=== PATIENT | female | born 1955 | race Caucasian/White ===

== ENCOUNTER 2025-06-20 20:19 | Outpatient (CLI) | payer OTHER, SELFPAY | END 2025-06-20 20:20 | disposition home or self-care (01) | PROVIDERS: Visit Provider Emergency Medicine Emergency Medical Services | DX: R06.09 Other forms of dyspnea (principal); R41.82 Altered mental status, unspecified | CPT/HCPCS: A0425; A0427 ==

== ENCOUNTER 2025-06-20 21:58 | Inpatient (IN) | payer OTHER, SELFPAY ==
[2025-06-20] VITALS (13 sets, daily range): BP systolic 114–135; BP diastolic 61–62; PULSE 50–53; RESP 6–24; TEMP 36.2; O2SAT 56–91; BMI 40.7
--- NOTE | 2025-06-20 22:43 | CRLHL7_ITS ---
For Patients: As a result of the Cures Act, medical imaging exams and procedure reports are released immediately into your electronic medical record. You may view this report before your referring provider. If you have questions, please contact your health care provider. INDICATION: Shortness of breath. TECHNIQUE: Chest 1 view. COMPARISON: None. FINDINGS: Diffuse increased interstitial lung markings. Prominent cardiac silhouette despite portable technique. Uncoiled and atherosclerotic thoracic aorta. Tiny bilateral pleural effusions. No pneumothorax. Two left glenohumeral joint intra-articular bodies, largest measuring 2 cm. No acute osseous findings. Partially imaged lumbar spine fusion changes. IMPRESSION: Constellation of findings compatible with pulmonary edema and/or diffuse infection. Dictated by Smooth Dowd MD @ 06/20/2025 11:27:12 PM (Electronically Signed)
--- NOTE | 2025-06-20 22:59 | ED.GENADULT ---
HPI - General Adult General Chief complaint: Extremity Pain/Injury, Lower <Sara Plasencia MD - Last Filed: 06/20/25 23:49> Stated complaint: abnormal vital signs <Sara Plasencia MD - Last Filed: 06/20/25 23:49> Time Seen by Provider: 06/20/25 22:33 <Sara Plasencia MD - Last Filed: 06/20/25 23:49> Source: patient, family and EMS <Sara Plasencia MD - Last Filed: 06/20/25 23:49> Mode of arrival: EMS <Sara Plasencia MD - Last Filed: 06/20/25 23:49> Limitations: altered mental status (Dementia) <Sraa Plasencia MD - Last Filed: 06/20/25 23:49> History of Present Illness HPI narrative: 70-year-old female with very complex medical history presents today after the [facility] [place] called EMS because the patient was not doing well. According to her family she has required more oxygen than usual. She has required oxygen in the past but has not had any for us short period of time, since she has been in [place] according to her sister. Patient states that she felt dizzy today. She denies pain anywhere or any focal neurologic deficits. Denies blurry or double vision. Denies ringing in her ears. I did receive a call while EMS was on site that patient was requiring significant amount of oxygen and was saturating 40% on room air, was bradycardic. POLST on record states comfort focus treatment and no transfer to hospital for life-sustaining treatment. Patient's sister who is the POA requested the patient be transferred. She states that the POLST is wrong. Upon arrival today both patient and her POA are requesting full diagnostic workup and treatment, short of intubation and CPR. Past medical history is extensive and includes paroxysmal atrial fibrillation, diastolic heart failure, epilepsy, COPD, diabetes type 2, hyperlipidemia, adrenocortical insufficiency, history of PE, history of CVA with neuro cognitive deficits, chronic back pain. Patient is generally a one-person assist with walker and gait belt for transfers, wheelchair for locomotion. Patient was admitted at [facility] from January to April of this year for strengthening and rehab, she was discharged to the memory care unit at the [facility] in April. Current medications include sertraline, amiodarone, metoprolol, apixaban, torsemide 20 mg daily, p.r.n. tramadol, Depakote, insulin, rosuvastatin, hydrocortisone <Sara Plasencia MD - Last Filed: 06/20/25 23:49> Related Data Home medications: Home Medications ?Medication ?Instructions ?Recorded ?Confirmed acetaminophen 325 mg tablet 650 mg PO TID 06/21/25 06/21/25 amiodarone 200 mg tablet 200 mg PO DAILY 06/21/25 06/21/25 ammonium lactate 12 % topical cream 1 applic topical BID 06/21/25 06/21/25 apixaban 5 mg tablet (Eliquis) 5 mg PO BID 06/21/25 06/21/25 ascorbic acid (vitamin C) 1,000 mg 1,000 mg PO BID 06/21/25 06/21/25 tablet azithromycin 500 mg tablet 500 mg PO DAILY 06/21/25 06/21/25 calcium 600 mg (as 1 tab PO BID 06/21/25 06/21/25 carbonate)-vitamin D3 10 mcg (400 unit) tablet cholecalciferol (vitamin D3) 125 125 mcg PO QAM 06/21/25 06/21/25 mcg (5,000 unit) capsule cyanocobalamin (vitamin B-12) 500 500 mcg PO DAILY 06/21/25 06/21/25 mcg tablet diclofenac sodium 1 % topical gel 4 g topical QID 06/21/25 06/21/25 divalproex 500 mg tablet,extended 2,000 mg PO HS 06/21/25 06/21/25 release 24 hr ergocalciferol (vitamin D2) 1,250 1,250 mcg PO .sat 06/21/25 06/21/25 mcg (50,000 unit) capsule fluticasone fur. 100 mcg-umeclid 1 inh inhalation DAILY 06/21/25 06/21/25 62.5 mcg-vilant 25 mcg inhalat.powder (Trelegy Ellipta) fluticasone propionate 50 2 spray intranasal DAILY 06/21/25 06/21/25 mcg/actuation nasal spray,suspension (24 Hour Allergy Relief) gabapentin 400 mg capsule 800 mg PO TID 06/21/25 06/21/25 guaifenesin 100 mg/5 mL oral 200 mg PO Q4H PRN 06/21/25 06/21/25 liquid (Chest Congestion Relief) hydrocortisone 10 mg tablet 5 mg PO QPM 06/21/25 06/21/25 hydrocortisone 10 mg tablet 10 mg PO DAILY 06/21/25 06/21/25 (Cortef) insulin glargine 100 unit/mL (3 13 unit subcut HS 06/21/25 06/21/25 mL) subcutaneous pen (Lantus Solostar U-100 Insulin) levothyroxine 25 mcg tablet 25 mcg PO DAILY 06/21/25 06/21/25 lidocaine 4 % topical patch 1 patch topical DAILY@19 06/21/25 06/21/25 melatonin 5 mg tablet 5 mg PO HS insomnia 06/21/25 06/21/25 metoprolol tartrate 25 mg tablet 25 mg PO BID 06/21/25 06/21/25 montelukast 10 mg tablet 10 mg PO DAILY 06/21/25 06/21/25 multivitamin with folic acid 400 1 tab PO DAILY 06/21/25 06/21/25 mcg tablet (Tab-A-Tiffanie) naloxone 4 mg/actuation nasal 4 mg intranasal Q2M PRN 06/21/25 06/21/25 spray (Narcan) nicotine 14 mg/24 hr daily 1 patch topical DAILY 06/21/25 06/21/25 transdermal patch polyethylene glycol 3350 17 gram 17 g PO DAILY PRN 06/21/25 06/21/25 oral powder packet (Gavilax) rimegepant 75 mg disintegrating 75 mg PO DAILY PRN 06/21/25 06/21/25 tablet (Nurtec ODT) rosuvastatin 20 mg tablet 20 mg PO HS 06/21/25 06/21/25 sennosides 8.6 mg-docusate sodium 1 tab-cap PO DAILY PRN 06/21/25 06/21/25 50 mg tablet (Colace 2-In-1) sertraline 25 mg tablet 25 mg PO DAILY 06/21/25 06/21/25 sodium chloride 0.65 % nasal spray 1 spray intranasal BID 06/21/25 06/21/25 aerosol (Deep Sea Nasal) tiotropium bromide 2.5 2 inh inhalation DAILY 06/21/25 06/21/25 mcg/actuation mist for inhalation (Spiriva Respimat) torsemide 20 mg tablet 40 mg PO DAILY 06/21/25 06/21/25 <Sara Plasencia MD - Last Filed: 06/20/25 23:49> Allergies/adverse reactions: Allergies Allergy/AdvReac Type Severity Reaction Status Date / Time aspirin Allergy Severe gi bleed Verified 06/20/25 22:23 codeine Allergy Severe Migraine Verified 06/20/25 22:23 cucumber Allergy Severe angioedema Verified 06/20/25 22:23 NSAIDS (Non-Steroidal Allergy Severe gi bleed Verified 06/20/25 22:23 Anti-Inflamma lactase Allergy Intermediate gi upset Verified 06/20/25 22:23 sulfamethoxazole (From Allergy Intermediate Hives Verified 06/20/25 22:23 Bactrim) sumatriptan Allergy Intermediate worsening Verified 06/20/25 22:23 headache trimethoprim (From Bactrim) Allergy Intermediate Hives Verified 06/20/25 22:23 levofloxacin Allergy Mild Rash Verified 06/20/25 22:23 <Sara Plasencia MD - Last Filed: 06/20/25 23:49> Review of Systems Status of ROS: Reports: 10 or more systems reviewed and unremarkable except as noted in History and below <Sara Plasencia MD - Last Filed: 06/20/25 23:49> [facility] Medical History: Medical History (Updated 06/21/25 @ 14:33 by Loretta Ambrocio MD) History of pulmonary embolism ?Z86.711 - Personal history of pulmonary embolism (ICD-10) Epilepsy ?G40.909 - Epilepsy, unspecified, not intractable, without status epilepticus (ICD-10) Diabetes ?E11.9 - Type 2 diabetes mellitus without complications (ICD-10) Chronic adrenal insufficiency ?E27.40 - Unspecified adrenocortical insufficiency (ICD-10) History of COPD ?Z87.09 - Personal history of other diseases of the respiratory system (ICD-10) Chronic diastolic heart failure ?I50.32 - Chronic diastolic (congestive) heart failure (ICD-10) Obstructive sleep apnea ?G47.33 - Obstructive sleep apnea (adult) (pediatric) (ICD-10) 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 ?F06.70 - Mild neurocognitive disorder due to known physiological condition without behavioral disturbance (ICD-10) H/O stroke without residual deficits ?Z86.73 - Personal history of transient ischemic attack (TIA), and cerebral infarction without residual deficits (ICD-10) Transient ischemic attack (TIA) ?G45.9 - Transient cerebral ischemic attack, unspecified (ICD-10) Pulmonary embolus ?I26.99 - Other pulmonary embolism without acute cor pulmonale (ICD-10) Unspecified adrenocortical insufficiency ?E27.40 - Unspecified adrenocortical insufficiency (ICD-10) Diabetes type 2 ?E11.9 - Type 2 diabetes mellitus without complications (ICD-10) GERD without esophagitis ?K21.9 - Gastro-esophageal reflux disease without esophagitis (ICD-10) Chronic idiopathic constipation ?K59.04 - Chronic idiopathic constipation (ICD-10) PTSD (post-traumatic stress disorder) ?F43.10 - Post-traumatic stress disorder, unspecified (ICD-10) Anxiety ?F41.9 - Anxiety disorder, unspecified (ICD-10) Nonintractable epilepsy with complex partial seizures ?G40.209 - Localization-related (focal) (partial) symptomatic epilepsy and epileptic syndromes with complex partial seizures, not intractable, without status epilepticus (ICD-10) Rheumatoid arthritis ?M06.9 - Rheumatoid arthritis, unspecified (ICD-10) Acute on chronic diastolic (congestive) heart failure ?I50.33 - Acute on chronic diastolic (congestive) heart failure (ICD-10) Acute respiratory failure with hypoxia and hypercapnia ?J96.01 - Acute respiratory failure with hypoxia (ICD-10) ?J96.02 - Acute respiratory failure with hypercapnia (ICD-10) Opioid dependence ?F11.20 - Opioid dependence, uncomplicated (ICD-10) Cellulitis of both lower extremities ?L03.115 - Cellulitis of right lower limb (ICD-10) ?L03.116 - Cellulitis of left lower limb (ICD-10) Chronic hypoxemic respiratory failure ?J96.11 - Chronic respiratory failure with hypoxia (ICD-10) Chronic obstructive pulmonary disease on long-term inhaled steroid therapy ?J44.9 - Chronic obstructive pulmonary disease, unspecified (ICD-10) ?Z79.51 - intermediate frame tender (current) use of inhaled steroids (ICD-10) Atrial fibrillation with RVR ?I48.91 - Unspecified atrial fibrillation (ICD-10) CHF (congestive heart failure) ?I50.9 - Heart failure, unspecified (ICD-10) Acute hyponatremia ?E87.1 - Hypo-osmolality and hyponatremia (ICD-10) Class 2 severe obesity with serious comorbidity in adult ?E66.812 - Obesity, class 2 (ICD-10) ?E66.01 - Morbid (severe) obesity due to excess calories (ICD-10) Seizure ?R56.9 - Unspecified convulsions (ICD-10) Paroxysmal atrial fibrillation ?I48.0 - Paroxysmal atrial fibrillation (ICD-10) Bicuspid aortic valve ?Q23.81 - Bicuspid aortic valve (ICD-10) Asthma ?J45.909 - Unspecified asthma, uncomplicated (ICD-10) Aortic aneurysm ?I71.9 - Aortic aneurysm of unspecified site, without rupture (ICD-10) Adrenal insufficiency ?E27.40 - Unspecified adrenocortical insufficiency (ICD-10) <Sara Plasencia MD - Last Filed: 06/20/25 23:49> Surgical History: Surgical History H/O: hysterectomy ?Z90.710 - Acquired absence of both cervix and uterus (ICD-10) History of cholecystectomy ?Z90.49 - Acquired absence of other specified parts of digestive tract (ICD-10) <Sara Plasencia MD - Last Filed: 06/20/25 23:49> Social History: Social History What is your current living situation?: unable to answer Problems where you live: unable to answer Problems where you live details: Pt unable to answer In the past 12 months, utilities in danger of being shut off: unable to answer In past 12 months, lack of transportation kept you from medical appts, meetings, work, or getting things needed for daily living: unable to answer In the past 12 mos, have been you worried that your food would run out before you had money to buy more?: unable to answer In the past 12 mos, the food you bought just didn't last and you didn't have money to buy more?: unable to answer Highest level of school completed/degree received: don't know Smoking Status: Unknown if ever smoked Do you use any of these nicotine containing products: None How often do you have a drink containing alcohol: never AUDIT-C Alcohol total score: 0 Non-prescribed substance use details: Pt unable answer How often does anyone, including family, friends and others, physically hurt you: unable to answer How often does anyone, including family, friends and others, insult or talk down to you: unable to answer How often does anyone, including family, friends and others, threaten you with harm: unable to answer How often does anyone, including family, friends and others, scream or curse at you: unable to answer <Sara Plasencia MD - Last Filed: 06/20/25 23:49> Exam Narrative: Exam Narrative: Overweight, well-developed patient in acute respiratory distress. Awake, sleepy. Answers most questions appropriately, slightly hard of hearing. Sometimes asks further questions to be repeated and states that she does not understand. Patient currently on 15 L OxyMask, saturating 88-90%. HEENT: Normocephalic atraumatic. Cataracts. Extraocular muscles are intact. Conjunctivae are moist without any icterus noted. Slightly dry mucous membranes. Cardiovascular: Bradycardic. Lungs: Bilateral crackles. Abdomen: Soft and nontender nondistended with normal bowel sounds. Extremities: Bilateral lower extremities show 3+ pitting edema with Guadalupe induration up to the knees, she has trace edema up the thighs. Skin: Well perfused, pale. <Sara Plasencia MD - Last Filed: 06/20/25 23:49> Const: Vital Signs, click to edit/add: Vital Signs - 24 hr 06/20/25 22:05 06/20/25 22:05 06/20/25 22:07 Temperature 97.1 F L Pulse Rate 52 L 52 L Pulse Rate [Left P ulse Oximeter] 52 L Respiratory Rate 24 7 L Blood Pressure 135/61 Blood Pressure [Le ft Arm] Blood Pressure [Le ft Upper Arm] 135/61 Pulse Oximetry 57 L 56 L 81 L Oxygen Delivery Me thod Room Air Oxygen Flow Rate 06/20/25 22:15 06/20/25 22:16 06/20/25 22:30 Temperature Pulse Rate 50 L 53 L Pulse Rate [Left P ulse Oximeter] Respiratory Rate 14 14 Blood Pressure Blood Pressure [Le ft Arm] Blood Pressure [Le ft Upper Arm] Pulse Oximetry 81 L 63 L [address] thod Room Air Oxygen Flow Rate 06/20/25 22:43 06/20/25 22:45 06/20/25 22:48 Temperature Pulse Rate 50 L Pulse Rate [Left P ulse Oximeter] Respiratory Rate 18 Blood Pressure Blood Pressure [Le ft Arm] Blood Pressure [Le ft Upper Arm] Pulse Oximetry 63 L 88 90 Oxygen Delivery Me thod Oxygen Flow Rate 06/20/25 22:48 06/20/25 23:12 06/20/25 23:15 Temperature Pulse Rate 50 L Pulse Rate [Left P ulse Oximeter] Respiratory Rate 11 L 17 Blood Pressure 114/62 Blood Pressure [Le ft Arm] Blood Pressure [Le ft Upper Arm] Pulse Oximetry 90 86 L Oxygen Delivery Me thod OxyMask Oxygen Flow Rate 15 06/20/25 23:16 06/20/25 23:30 06/20/25 23:45 Temperature Pulse Rate 51 L 50 L 50 L Pulse Rate [Left P ulse Oximeter] Respiratory Rate 6 L 18 13 Blood Pressure Blood Pressure [Le ft Arm] Blood Pressure [Le ft Upper Arm] Pulse Oximetry 86 L 91 91 Oxygen Delivery Me thod Oxygen Flow Rate 06/21/25 00:00 06/21/25 00:15 06/21/25 00:25 Temperature Pulse Rate 50 L 50 L 50 L Pulse Rate [Left P ulse Oximeter] Respiratory Rate 13 19 14 Blood Pressure 119/68 Blood Pressure [Le ft Arm] Blood Pressure [Le ft Upper Arm] Pulse Oximetry 95 96 87 L Oxygen Delivery Me thod Oxygen Flow Rate 06/21/25 00:30 06/21/25 00:45 06/21/25 01:00 Temperature Pulse Rate 49 L 49 L 50 L Pulse Rate [Left P ulse Oximeter] Respiratory Rate 13 11 L 15 Blood Pressure Blood Pressure [Le ft Arm] Blood Pressure [Le ft Upper Arm] Pulse Oximetry 92 90 90 Oxygen Delivery Me thod Oxygen Flow Rate 06/21/25 01:15 06/21/25 01:30 06/21/25 01:43 Temperature Pulse Rate 51 L 50 L 51 L Pulse Rate [Left P ulse Oximeter] Respiratory Rate 13 11 L 13 Blood Pressure 184/78 H Blood Pressure [Le ft Arm] Blood Pressure [Le ft Upper Arm] Pulse Oximetry 80 L 87 L 86 L Oxygen Delivery Me thod Oxygen Flow Rate 06/21/25 01:44 06/21/25 01:45 06/21/25 01:48 Temperature Pulse Rate 50 L 49 L 50 L Pulse Rate [Left P ulse Oximeter] Respiratory Rate 13 15 12 Blood Pressure 128/105 H 108/65 Blood Pressure [Le ft Arm] Blood Pressure [Le ft Upper Arm] Pulse Oximetry 88 92 89 Oxygen Delivery Me thod Oxygen Flow Rate 06/21/25 01:52 06/21/25 01:56 06/21/25 05:33 Temperature Pulse Rate 49 L 49 L 50 L Pulse Rate [Left P ulse Oximeter] Respiratory Rate 15 13 Blood Pressure 107/64 107/63 Blood Pressure [Le ft Arm] Blood Pressure [Le ft Upper Arm] Pulse Oximetry 85 L 91 Oxygen Delivery Me thod Oxygen Flow Rate 06/21/25 05:38 Temperature 98.7 F Pulse Rate Pulse Rate [Left P ulse Oximeter] 56 L Respiratory Rate 13 Blood Pressure Blood Pressure [Le ft Arm] 95/58 L Blood Pressure [Le ft Upper Arm] Pulse Oximetry 92 Oxygen Delivery Me thod BiPAP Oxygen Flow Rate <Sara Plasencia MD - Last Filed: 06/20/25 23:49> Vital Signs, click to edit/add: Vital Signs - 24 hr 06/20/25 22:05 06/20/25 22:05 06/20/25 22:07 Temperature 97.1 F L Pulse Rate 52 L 52 L Pulse Rate [Left P ulse Oximeter] 52 L Respiratory Rate 24 7 L Blood Pressure 135/61 Blood Pressure [Le ft Arm] Blood Pressure [Le ft Upper Arm] 135/61 Pulse Oximetry 57 L 56 L 81 L Oxygen Delivery Me thod Room Air Oxygen Flow Rate 06/20/25 22:15 06/20/25 22:16 06/20/25 22:30 Temperature Pulse Rate 50 L 53 L Pulse Rate [Left P ulse Oximeter] Respiratory Rate 14 14 Blood Pressure Blood Pressure [Le ft Arm] Blood Pressure [Le ft Upper Arm] Pulse Oximetry 81 L 63 L 85 L Oxygen Delivery Me thod Room Air Oxygen Flow Rate 06/20/25 22:43 06/20/25 22:45 06/20/25 22:48 Temperature Pulse Rate 50 L Pulse Rate [Left P ulse Oximeter] Respiratory Rate 18 Blood Pressure Blood Pressure [Le ft Arm] Blood Pressure [Le ft Upper Arm] Pulse Oximetry 63 L 88 90 Oxygen Delivery Me thod Oxygen Flow Rate 06/20/25 22:48 06/20/25 23:12 06/20/25 23:15 Temperature Pulse Rate 50 L Pulse Rate [Left P ulse Oximeter] Respiratory Rate 11 L 17 Blood Pressure 114/62 Blood Pressure [Le ft Arm] Blood Pressure [Le ft Upper Arm] Pulse Oximetry 90 86 L Oxygen Delivery Me thod OxyMask Oxygen Flow Rate 15 06/20/25 23:16 06/20/25 23:30 06/20/25 23:45 Temperature Pulse Rate 51 L 50 L 50 L Pulse Rate [Left P ulse Oximeter] Respiratory Rate 6 L 18 13 Blood Pressure Blood Pressure [Le ft Arm] Blood Pressure [Le ft Upper Arm] Pulse Oximetry 86 L 91 91 Oxygen Delivery Me thod Oxygen Flow Rate 06/21/25 00:00 06/21/25 00:15 06/21/25 00:25 Temperature Pulse Rate 50 L 50 L 50 L Pulse Rate [Left P ulse Oximeter] Respiratory Rate 13 19 14 Blood Pressure 119/68 Blood Pressure [Le ft Arm] Blood Pressure [Le ft Upper Arm] Pulse Oximetry 95 96 87 L Oxygen Delivery Me thod Oxygen Flow Rate 06/21/25 00:30 06/21/25 00:45 06/21/25 01:00 Temperature Pulse Rate 49 L 49 L 50 L Pulse Rate [Left P ulse Oximeter] Respiratory Rate 13 11 L 15 Blood Pressure Blood Pressure [Le ft Arm] Blood Pressure [Le ft Upper Arm] Pulse Oximetry 92 90 90 Oxygen Delivery Me thod Oxygen Flow Rate 06/21/25 01:15 06/21/25 01:30 06/21/25 01:43 Temperature Pulse Rate 51 L 50 L 51 L Pulse Rate [Left P ulse Oximeter] Respiratory Rate 13 11 L 13 Blood Pressure 184/78 H Blood Pressure [Le ft Arm] Blood Pressure [Le ft Upper Arm] Pulse Oximetry 80 L 87 L 86 L Oxygen Delivery Me thod Oxygen Flow Rate 06/21/25 01:44 06/21/25 01:45 06/21/25 01:48 Temperature Pulse Rate 50 L 49 L 50 L Pulse Rate [Left P ulse Oximeter] Respiratory Rate 13 15 12 Blood Pressure 128/105 H 108/65 Blood Pressure [Le ft Arm] Blood Pressure [Le ft Upper Arm] Pulse Oximetry 88 92 89 Oxygen Delivery Me thod Oxygen Flow Rate 06/21/25 01:52 06/21/25 01:56 06/21/25 05:33 Temperature Pulse Rate 49 L 49 L 50 L Pulse Rate [Left P ulse Oximeter] Respiratory Rate 15 13 Blood Pressure 107/64 107/63 Blood Pressure [Le ft Arm] Blood Pressure [Le ft Upper Arm] Pulse Oximetry 85 L [address] thod Oxygen Flow Rate 06/21/25 05:38 Temperature 98.7 F Pulse Rate Pulse Rate [Left P ulse Oximeter] 56 L Respiratory Rate 13 Blood Pressure Blood Pressure [Le ft Arm] 95/58 L Blood Pressure [Le ft Upper Arm] Pulse Oximetry [address] thod BiPAP Oxygen Flow Rate <Henry Haas MD - Last Filed: 06/21/25 21:43> Course Course ED Course: IV is established and 40 mg of IV Lasix is ordered. EKG, read by me, shows sinus bradycardia with a pulse of 51, low voltage QRS. Chest x-ray, read by me, shows pulmonary edema. Troponin is normal at 0.02. <Sara Plasencia MD - Last Filed: 06/20/25 23:49> Vital Signs Vital signs: Initial Vital Signs Temperature 97.1 F L 06/20/25 22:05 Temperature Source Temporal Artery Scan 06/20/25 22:05 Pulse Rate 52 L 06/20/25 22:05 Respiratory Rate 24 06/20/25 22:05 Blood Pressure 135/61 06/20/25 22:05 Blood Pressure Mean 85 06/20/25 22:05 Blood Pressure Position Semi-Fowlers 06/20/25 22:05 Pulse Oximetry 57 L 06/20/25 22:05 Oxygen Delivery Method Room Air 06/20/25 22:05 Vital Signs Temperature 97.1 F L 06/20/25 22:05 Pulse Rate 52 L 06/20/25 22:05 Respiratory Rate 24 06/20/25 22:05 Blood Pressure 135/61 06/20/25 22:05 Pulse Oximetry 57 L 06/20/25 22:05 Oxygen Delivery Method Room Air 06/20/25 22:05 Temperature 97.7 F 06/21/25 20:41 Pulse Rate 66 06/21/25 20:41 Respiratory Rate 20 06/21/25 20:41 Blood Pressure 101/50 L 06/21/25 21:04 Pulse Oximetry 92 06/21/25 20:41 Oxygen Delivery Method OxyMask 06/21/25 20:41 Oxygen Flow Rate 6 06/21/25 20:41 Fraction of Inspired Oxygen 45 06/21/25 17:00 <Sara Plasencia MD - Last Filed: 06/20/25 23:49> Initial Vital Signs Temperature 97.1 F L 06/20/25 22:05 Temperature Source Temporal Artery Scan 06/20/25 22:05 Pulse Rate 52 L 06/20/25 22:05 Respiratory Rate 24 06/20/25 22:05 Blood Pressure 135/61 06/20/25 22:05 Blood Pressure Mean 85 06/20/25 22:05 Blood Pressure Position Semi-Fowlers 06/20/25 22:05 Pulse Oximetry 57 L 06/20/25 22:05 Oxygen Delivery Method Room Air 06/20/25 22:05 Vital Signs Temperature 97.1 F L 06/20/25 22:05 Pulse Rate 52 L 06/20/25 22:05 Respiratory Rate 24 06/20/25 22:05 Blood Pressure 135/61 06/20/25 22:05 Pulse Oximetry 57 L 06/20/25 22:05 Oxygen Delivery Method Room Air 06/20/25 22:05 Temperature 97.7 F 06/21/25 20:41 Pulse Rate 66 06/21/25 20:41 Respiratory Rate 20 06/21/25 20:41 Blood Pressure 101/50 L 06/21/25 21:04 Pulse Oximetry 92 06/21/25 20:41 Oxygen Delivery Method OxyMask 06/21/25 20:41 Oxygen Flow Rate 6 06/21/25 20:41 Fraction of Inspired Oxygen 45 06/21/25 17:00 <Henry Haas MD - Last Filed: 06/21/25 21:43> Medications Administered Medications: Generic Name Dose Route Start Last Admin Trade Name Freq PRN Reason Stop Dose Admin Acetaminophen 650 mg 06/21/25 06:25 06/21/25 20:35 Acetaminophen 325 Mg Tablet PO 650 mg Q6H PRN Administration Amiodarone HCl 200 mg 06/21/25 09:00 06/21/25 10:24 Amiodarone 200 Mg Tablet PO Not Given DAILY NJ Apixaban 5 mg 06/21/25 09:00 06/21/25 20:35 Apixaban 5 Mg Tablet PO 5 mg BID NJ Administration Dextrose 25 gm 06/21/25 07:00 06/21/25 07:12 Dextrose 50 % Syringe IVP 25 gm Q15M PRN Administration Hypoglycemia Divalproex Sodium 2,000 mg 06/21/25 21:00 06/21/25 20:35 Divalproex Delayed Release 250 Mg Tablet PO 2,000 mg HS NJ Administration Furosemide 40 mg 06/21/25 21:00 06/21/25 20:32 Furosemide 10 Mg/Ml Inj IVP Not Given BID NJ Hydrocortisone Sodium Succinate 100 mg 06/21/25 06:30 06/21/25 13:48 Hydrocortisone Sod Succinate 50 Mg/Ml Inj IVP Not Given Q8H NJ Piperacillin Sod/Tazobactam 100 mls @ 200 mls/hr 06/21/25 10:00 06/21/25 19:57 Sod 3.375 gm/ Sodium Chloride IVPB Infused Q6H NJ Infusion Norepinephrine/Dextrose 4,000 mcg in 250 mls @ 36.928 mls/hr 06/21/25 11:35 06/21/25 12:23 Norepinephrine Infusion IVPB 0 mcg/kg/min CONT NJ 0 mls/hr Protocol Titration 0.1 MCG/KG/MIN Insulin Aspart 0 unit 06/21/25 06:45 06/21/25 19:52 Insulin Aspart 100 Unit/Ml SUBCUT Not Given Q6H [facility] Protocol Non-Formulary Medication 4 gm 06/21/25 21:00 06/21/25 21:04 Diclofenac Sodium TOPICAL Not Given QID NJ Sodium Chloride 5 ml 06/21/25 06:25 06/21/25 12:31 Sodium Chloride 0.9 % (Flush) 10 Ml Syringe IVF 5 ml .FLUSH PRN Administration Sodium Chloride 5 ml 06/21/25 09:00 06/21/25 20:36 Sodium Chloride 0.9 % (Flush) 10 Ml Syringe IVF 5 ml BID NJ Administration Discontinued Medications Generic Name Dose Route Start Last Admin Trade Name Freq PRN Reason Stop Dose Admin Furosemide 40 mg 06/20/25 22:45 06/20/25 23:48 Furosemide 10 Mg/Ml Inj IVP 06/20/25 22:46 40 mg ONCE ONE Administration Furosemide 20 mg 06/21/25 00:58 06/21/25 01:19 Furosemide 10 Mg/Ml Inj IVP 06/21/25 00:59 20 mg ONCE ONE Administration Furosemide 40 mg 06/21/25 12:08 06/21/25 12:27 Furosemide 10 Mg/Ml Inj IVP 06/21/25 12:09 40 mg ONCE ONE Administration Hydrocortisone Sodium Succinate 100 mg 06/21/25 10:39 06/21/25 11:05 Hydrocortisone Sod Succinate 50 Mg/Ml Inj IVP 06/21/25 10:40 100 mg ONCE ONE Administration Nitroglycerin/Dextrose 25,000 mcg in 250 mls @ 3 mls/hr 06/21/25 00:59 06/21/25 05:30 Nitroglycerin/Dextrose IVPB Infused .TITRATE PRN Infusion diuresis Protocol 5 MCG/MIN Piperacillin Sod/Tazobactam 100 mls @ 200 mls/hr 06/21/25 02:47 06/21/25 03:59 Sod 3.375 gm/ Sodium Chloride IVPB 06/21/25 02:48 Infused ONCE ONE Infusion Vancomycin/PEG/NADA/Lysine/Water 2 gm in 400 mls @ 200 mls/hr 06/21/25 02:47 06/21/25 05:40 Vancomycin 2 Gm/400 Ml IVPB 06/21/25 04:46 Infused ONCE ONE Infusion Protocol Lorazepam 0.25 mg 06/21/25 01:53 06/21/25 01:57 Lorazepam 2 Mg/Ml Inj IVP 06/21/25 01:54 0.25 mg ONCE ONE Administration Perflutren Lipid Microsphere 2 ml 06/21/25 09:47 06/21/25 10:06 Perflutren Lipid Microspheres 2 Ml Vial IVP 06/21/25 09:48 2 ml ONCE ONE Administration <Sara Plasencia MD - Last Filed: 06/20/25 23:49> Generic Name Dose Route Start Last Admin Trade Name Freq PRN Reason Stop Dose Admin Acetaminophen 650 mg 06/21/25 06:25 06/21/25 20:35 Acetaminophen 325 Mg Tablet PO 650 mg Q6H PRN Administration Amiodarone HCl 200 mg 06/21/25 09:00 06/21/25 10:24 Amiodarone 200 Mg Tablet PO Not Given DAILY JN Apixaban 5 mg 06/21/25 09:00 06/21/25 20:35 Apixaban 5 Mg Tablet PO 5 mg BID NJ Administration Dextrose 25 gm 06/21/25 07:00 06/21/25 07:12 Dextrose 50 % Syringe IVP 25 gm Q15M PRN Administration Hypoglycemia Divalproex Sodium 2,000 mg 06/21/25 21:00 06/21/25 20:35 Divalproex Delayed Release 250 Mg Tablet PO 2,000 mg HS NJ Administration Furosemide 40 mg 06/21/25 21:00 06/21/25 20:32 Furosemide 10 Mg/Ml Inj IVP Not Given BID NJ Hydrocortisone Sodium Succinate 100 mg 06/21/25 06:30 06/21/25 13:48 Hydrocortisone Sod Succinate 50 Mg/Ml Inj IVP Not Given Q8H NJ Piperacillin Sod/Tazobactam 100 mls @ 200 mls/hr 06/21/25 10:00 06/21/25 19:57 Sod 3.375 gm/ Sodium Chloride IVPB Infused Q6H NJ Infusion Norepinephrine/Dextrose 4,000 mcg in 250 mls @ 36.928 mls/hr 06/21/25 11:35 06/21/25 12:23 Norepinephrine Infusion IVPB 0 mcg/kg/min CONT NJ 0 mls/hr Protocol Titration 0.1 MCG/KG/MIN Insulin Aspart 0 unit 06/21/25 06:45 06/21/25 19:52 Insulin Aspart 100 Unit/Ml SUBCUT Not Given Q6H [facility] Protocol Non-Formulary Medication 4 gm 06/21/25 21:00 06/21/25 21:04 Diclofenac Sodium TOPICAL Not Given QID NJ Sodium Chloride 5 ml 06/21/25 06:25 06/21/25 12:31 Sodium Chloride 0.9 % (Flush) 10 Ml Syringe IVF 5 ml .FLUSH PRN Administration Sodium Chloride 5 ml 06/21/25 09:00 06/21/25 20:36 Sodium Chloride 0.9 % (Flush) 10 Ml Syringe IVF 5 ml BID NJ Administration Discontinued Medications Generic Name Dose Route Start Last Admin Trade Name Freq PRN Reason Stop Dose Admin Furosemide 40 mg 06/20/25 22:45 06/20/25 23:48 Furosemide 10 Mg/Ml Inj IVP 06/20/25 22:46 40 mg ONCE ONE Administration Furosemide 20 mg 06/21/25 00:58 06/21/25 01:19 Furosemide 10 Mg/Ml Inj IVP 06/21/25 00:59 20 mg ONCE ONE Administration Furosemide 40 mg 06/21/25 12:08 06/21/25 12:27 Furosemide 10 Mg/Ml Inj IVP 06/21/25 12:09 40 mg ONCE ONE Administration Hydrocortisone Sodium Succinate 100 mg 06/21/25 10:39 06/21/25 11:05 Hydrocortisone Sod Succinate 50 Mg/Ml Inj IVP 06/21/25 10:40 100 mg ONCE ONE Administration Nitroglycerin/Dextrose 25,000 mcg in 250 mls @ 3 mls/hr 06/21/25 00:59 06/21/25 05:30 Nitroglycerin/Dextrose IVPB Infused .TITRATE PRN Infusion diuresis Protocol 5 MCG/MIN Piperacillin Sod/Tazobactam 100 mls @ 200 mls/hr 06/21/25 02:47 06/21/25 03:59 Sod 3.375 gm/ Sodium Chloride IVPB 06/21/25 02:48 Infused ONCE ONE Infusion Vancomycin/PEG/NADA/Lysine/Water 2 gm in 400 mls @ 200 mls/hr 06/21/25 02:47 06/21/25 05:40 Vancomycin 2 Gm/400 Ml IVPB 06/21/25 04:46 Infused ONCE ONE Infusion Protocol Lorazepam 0.25 mg 06/21/25 01:53 06/21/25 01:57 Lorazepam 2 Mg/Ml Inj IVP 06/21/25 01:54 0.25 mg ONCE ONE Administration Perflutren Lipid Microsphere 2 ml 06/21/25 09:47 06/21/25 10:06 Perflutren Lipid Microspheres 2 Ml Vial IVP 06/21/25 09:48 2 ml ONCE ONE Administration <Henry Haas MD - Last Filed: 06/21/25 21:43> Medical Decision Making [facility] Narrative Medical decision making narrative: Samina -- inherited this patient at change of shift. Arrived here quite hypoxic and congested with chest x-ray showing pulmonary edema. Suspected a CHF exacerbation. Does have a history of significant smoking as well but without a formal diagnosis of COPD. History of home oxygen but this was discontinued some months ago. POLST as clarified by family appears to be in correct noting DNR is correct but would want selective treatment. This is contrary to understanding by staff that Gemini had presented to the emergency department to be placed on hospice. Does struggle with some anxiety and sensation of claustrophobia in so far has not been willing to wear BiPAP. Was given 40 mg of IV Lasix. Venous blood gases are pending. Pending also is establishment of larger IV to allow for PE study of the chest. Labs would suggest CHF exacerbation with high BNP as well as elevated transaminases but not with apparent belly pain. Would benefit from a 2nd IV access point regardless. I did go to see Socorro and her family but change of shift. Gemini was sleeping with Oxymask in place on 15 L oxygenating up to 93%. I do some concerns about high-flow oxygen like this in setting of likely COPD history. BiPAP would be ideal. Lungs are congested to auscultation and has tense pitting edema and erythematous mid lower leg distal. Nearly blistering. Changes I think overall though consistent with peripheral edema as opposed to cellulitis. Would consider addition yet of more IV Lasix and nitro drip. Did arrive somewhat bradycardic to the emergency department. She does have a beta-parker on board. Also oximetry baseline per conversation with family would appear to be in the mid to upper 80s. 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 and does take 10 mg of hydrocortisone daily and 5 mg in the evening Finally obtained an accurate medication list as below Spiriva Trelegy Ellipta Vitamin-D Amiodarone Ammonium lactate cream Azithromycin daily Calcium plus D Diclofenac gel Depakote Fluticasone nasal spray Gabapentin Guaifenesin Hydrocortisone Lantus Levalbuterol nebulizations Levothyroxine Lidocaine patches Melatonin Metoprolol Montelukast Multivitamin Nicotine patch Omeprazole Polyethylene glycol Rosuvastatin Senna-S Sertraline Sodium chloride nasal spray Nurtec ODT Eliquis Vitamin B12 Vitamin-C Vitamin D-3 Narcan Has been initiated on BiPAP. A 2nd IV, deep IV is been placed in the right arm. Have also initiated nitro drip low-dose. Anticipating CT imaging shortly. I do think likelihood of PE is low and now with med list can see that is already taking Eliquis. CT imaging otherwise of the chest would be helpful here. Venous blood gas confirms chronic CO2 retention with a pCO2 of 65 a bicarb of 39. PH is 7.38 Anticipate initiating antibiotics. Looks to already be taking azithromycin. Depending on what CT shows, might direct antibiotics more to lungs or developing cellulitis in the lower extremities. As ordered prior CT scan of chest with contrast for PE protocol. Radiology over-read below INDICATION: Pulmonary embolism (PE) suspected, shortness of breath. TECHNIQUE: CT chest PE was acquired with 95 cc Isovue 370 IV contrast. Multiplanar reformats performed including axial MIP reconstructions. COMPARISON: Chest x-ray 06/20/2025. CT chest 11/07/2023. FINDINGS: Heart and vasculature: No pulmonary embolism appreciated. There is cardiomegaly without pericardial effusion. There is reflux of contrast within the hepatic veins. Main pulmonary artery is mildly dilated to 3.1 cm. No thoracic aortic aneurysm. Lungs and pleura: Small right pleural effusion. No pneumothorax. Mild bilateral interlobular septal thickening. Bilateral multifocal nodules/consolidations with more streaky consolidations at the lung bases and scattered superimposed ground-glass attenuation. Patent central airways. Lymph nodes/mediastinum: Enlarged mediastinal lymph nodes with largest lower paratracheal lymph node measuring up to 1.1 cm in short axis (series 4, image 54). Chest wall: No suspicious chest wall mass or fluid collection. Upper abdomen: No acute abnormality. Bones: No acute abnormality. IMPRESSION: 1. No pulmonary embolism identified. 2. Multifocal bilateral pulmonary nodules/consolidations likely indicative of multifocal infectious/inflammatory process. Recommend short-term interval follow-up CT chest to ensure resolution/exclude underlying malignant potential. 3. Cardiomegaly. Mild bilateral interlobular septal thickening and scattered ground-glass attenuation may reflect sequelae of mild pulmonary edema. 4. Small right pleural effusion. 5. Mediastinal lymphadenopathy, likely reactive. 6. Mild dilatation of the main pulmonary artery which may be seen in the setting of pulmonary hypertension. Please note that all CT scans at this facility use dose modulation, iterative reconstruction, and/or weight-based dosing when appropriate to reduce radiation dose to as low as reasonably achievable. Dictated by Rachid Petit MD @ 06/21/2025 2:36:13 AM Have ordered for Zosyn and vancomycin. Nitro drip was discontinued with some low blood pressures which are starting to improve. Hart has been placed. Making good urine out. Do not know if these low blood pressures might also be representing more of a sepsis picture. Did discuss this case with hospitalist for admission. Concerns expressed about elevated transaminases. I think these are probably related to CHF exacerbation. I had re-examined Deborahs abdomen and it was without tenderness. There was a challenge to accommodate in CT imaging, partly due to all the lines and BiPAP in place, but also anxiety/claustrophobia and I am concerned of otherwise keeping her in CT too long. Prefer management in the cardiac room where she is. With this in mind I did request a limited abdominal ultrasound as alternative. Ultrasound interpreted by health careers instructor as unremarkable Confirm this with hospitalist who is accepting admission. Radiology over-read below INDICATION: Elevated transaminases. TECHNIQUE: Ultrasound abdomen limited. Sonographic images of the right upper quadrant were obtained using kinsey-scale and color Doppler images. COMPARISON: None. FINDINGS: Liver: Evaluation limited by patient factors. Within limitations, the liver measures 19 centimeters in length, though this is nonspecific. Normal hepatic parenchyma. Hepatopetal flow in the main portal vein. Gallbladder: Cholecystectomy. Common bile duct: 5 mm. Pancreas: Pancreatic tail is not well visualized due to bowel gas. Remainder of the pancreas is unremarkable. Right kidney: Normal in size. Normal echotexture and cortex. No suspicious masses, stones, or hydronephrosis. Vasculature: Mild atherosclerosis of the aorta. IMPRESSION: Evaluation limited by patient factors. The liver measures 19 centimeters in length, which may represent hepatomegaly, but can be a normal variant. No biliary ductal dilation. Dictated by Mary Valdez MD @ 06/21/2025 5:35:14 AM <Henry Haas MD - Last Filed: 06/21/25 21:43> Medical Records Medical records reviewed: Yes I reviewed the patient's medical records <Henry Haas MD - Last Filed: 06/21/25 21:43> Lab Data Lab results reviewed: Yes I reviewed the patient's lab results <Henry Haas MD - Last Filed: 06/21/25 21:43> Labs: Lab Results 06/20/25 06/20/25 06/20/25 Range/Units 22:55 23:25 23:40 WBC 7.98 (4.50-11.00) K/uL RBC 3.53 L (4.00-5.20) m/uL Hgb 10.3 L (12.0-16.0) gm/dL Hct 34.6 (33.0-51.0) % MCV 98 (80-100) fL MCH 29 (26-34) pg MCHC 30 L (32-36) gm/dL RDW Coeff of Nicci 16.1 H (11.5-15.5) % Plt Count 237 (140-440) K/uL Neut % (Auto) 68.0 (42.0-72.0) % Lymph % (Auto) 18.3 L (20-44) % [place] % (Auto) 12.0 H (0.0-11.0) % Eos % (Auto) 0.3 (0.0-7.0) % Baso % (Auto) 0.6 (0.0-3.0) % Neut # (Auto) 5.43 (1.7-7.0) K/uL Lymph # (Auto) 1.50 (0.90-2.90) K/uL [place] # (Auto) 1.00 H (0.00-0.90) K/UL Eos # (Auto) 0.02 (0.00-0.50) K/uL Baso # (Auto) 0.05 (0.00-0.30) K/uL Abs Immat Gran (auto) 0.06 (0.00-0.30) K/uL Imm/Tot Granulo (auto) 0.8 % D-Dimer Quant (PE/DVT) 0.95 H (0.00-0.50) ug/ml VBG pH (7.32-7.43) VBG pCO2 (40-50) mmHG VBG pO2 (25-47) mmHG VBG HCO3 (21-28) mmol/L Sodium 140 (135-149) mmol/L Potassium 4.5 (3.6-5.1) mmol/L Chloride 96 (96-114) mmol/L Carbon Dioxide 39 H (20-32) mmol/L Anion Gap 5 L (7-15) mEq/L BUN 32 H (7-30) mg/dL Creatinine 1.5 (0.5-1.5) mg/dL Estimated Creat Clear 34.91 Estimated GFR 38 ml/min Glucose 99 (60-115) mg/dL Lactate 1.6 (0.5-1.9) mmol/L Calcium 8.8 (8.4-10.6) mg/dL Magnesium 2.2 (1.5-2.6) mg/dL Total Bilirubin 0.4 (0.1-1.5) mg/dL Direct Bilirubin 0.1 (0.0-0.5) mg/dL AST 456 H (12-35) U/L ALT 232 H (4-35) U/L Alkaline Phosphatase 72 (40-150) U/L Troponin I 0.03 (0.01-0.04) ng/mL C-Reactive Protein 4.0 H (0.5-1.0) mg/dL NT-Pro-B Natriuret Pep 5710 H (See Note) pg/mL Total Protein 6.9 (6.0-8.3) g/dL Albumin 3.6 (3.3-5.0) g/dL Urine Color Yellow (Yellow) Urine Appearance Clear (Clear) Urine pH 6.0 (5.0-8.5) Ur Specific [place] 1.020 (1.000-1.030) Urine Protein Negative (Negative) Urine Glucose (UA) Negative (Negative) Urine Ketones Negative (Negative) Urine Blood Negative (Negative) Urine Nitrite Negative (Negative) Urine Bilirubin Negative (Negative) Urine Urobilinogen 0.2 (0.2-1.0) Ur Leukocyte Esterase Negative (Negative) Urine RBC 0-2 (0-2) Urine WBC 2-5 (0-5) Ur Squamous Epith Cells Few (None-Few) Urine Bacteria Few A (None) Urine Mucus Moderate A (None) SARS-CoV-2 (PCR) Negative SARS-CoV-2 (Negative) Influenza Type A (PCR) Negative PCR FLU A (Negative) Influenza Type B (PCR) Negative PCR FLU B (Negative) RSV (PCR) Negative PCR RSV (Negative) Lab Acknowledgement POC Troponin I 0.02 (0.01-0.04) ng/ml 06/21/25 06/21/25 06/21/25 Range/Units 01:25 02:04 05:00 WBC (4.50-11.00) K/uL RBC (4.00-5.20) m/uL Hgb (12.0-16.0) gm/dL Hct (33.0-51.0) % MCV (80-100) fL MCH (26-34) pg MCHC (32-36) gm/dL RDW Coeff of Nicci (11.5-15.5) % Plt Count (140-440) K/uL Neut % (Auto) (42.0-72.0) % Lymph % (Auto) (20-44) % [place] % (Auto) (0.0-11.0) % Eos % (Auto) (0.0-7.0) % Baso % (Auto) (0.0-3.0) % Neut # (Auto) (1.7-7.0) K/uL Lymph # (Auto) (0.90-2.90) K/uL [place] # (Auto) (0.00-0.90) K/UL Eos # (Auto) (0.00-0.50) K/uL Baso # (Auto) (0.00-0.30) K/uL Abs Immat Gran (auto) (0.00-0.30) K/uL Imm/Tot Granulo (auto) % D-Dimer Quant (PE/DVT) (0.00-0.50) ug/ml VBG pH 7.384 7.382 (7.32-7.43) VBG pCO2 65 H* 66 H* (40-50) mmHG VBG pO2 < 30.1 < 30.1 (25-47) mmHG VBG HCO3 39 H 39 H (21-28) mmol/L Sodium (135-149) mmol/L Potassium (3.6-5.1) mmol/L Chloride (96-114) mmol/L Carbon Dioxide (20-32) mmol/L Anion Gap (7-15) mEq/L BUN (7-30) mg/dL Creatinine (0.5-1.5) mg/dL Estimated Creat Clear Estimated GFR ml/min Glucose (60-115) mg/dL Lactate 1.6 (0.5-1.9) mmol/L Calcium (8.4-10.6) mg/dL Magnesium (1.5-2.6) mg/dL Total Bilirubin (0.1-1.5) mg/dL Direct Bilirubin (0.0-0.5) mg/dL AST (12-35) U/L ALT (4-35) U/L Alkaline Phosphatase (40-150) U/L Troponin I (0.01-0.04) ng/mL C-Reactive Protein (0.5-1.0) mg/dL NT-Pro-B Natriuret Pep (See Note) pg/mL Total Protein (6.0-8.3) g/dL Albumin (3.3-5.0) g/dL Urine Color (Yellow) Urine Appearance (Clear) Urine pH (5.0-8.5) Ur Specific [place] (1.000-1.030) Urine Protein (Negative) Urine Glucose (UA) (Negative) Urine Ketones (Negative) Urine Blood (Negative) Urine Nitrite (Negative) Urine Bilirubin (Negative) Urine Urobilinogen (0.2-1.0) Ur Leukocyte Esterase (Negative) Urine RBC (0-2) Urine WBC (0-5) Ur Squamous Epith Cells (None-Few) Urine Bacteria (None) Urine Mucus (None) SARS-CoV-2 (PCR) (Negative) Influenza Type A (PCR) (Negative) Influenza Type B (PCR) (Negative) RSV (PCR) (Negative) Lab Acknowledgement Test Added POC Troponin I (0.01-0.04) ng/ml <Sara Plasencia MD - Last Filed: 06/20/25 23:49> Lab Results 06/20/25 06/20/25 06/20/25 Range/Units 22:55 23:25 23:40 WBC 7.98 (4.50-11.00) K/uL RBC 3.53 L (4.00-5.20) m/uL Hgb 10.3 L (12.0-16.0) gm/dL Hct 34.6 (33.0-51.0) % MCV 98 (80-100) fL MCH 29 (26-34) pg MCHC 30 L (32-36) gm/dL RDW Coeff of Nicci 16.1 H (11.5-15.5) % Plt Count 237 (140-440) K/uL Neut % (Auto) 68.0 (42.0-72.0) % Lymph % (Auto) 18.3 L (20-44) % [place] % (Auto) 12.0 H (0.0-11.0) % Eos % (Auto) 0.3 (0.0-7.0) % Baso % (Auto) 0.6 (0.0-3.0) % Neut # (Auto) 5.43 (1.7-7.0) K/uL Lymph # (Auto) 1.50 (0.90-2.90) K/uL [place] # (Auto) 1.00 H (0.00-0.90) K/UL Eos # (Auto) 0.02 (0.00-0.50) K/uL Baso # (Auto) 0.05 (0.00-0.30) K/uL Abs Immat Gran (auto) 0.06 (0.00-0.30) K/uL Imm/Tot Granulo (auto) 0.8 % D-Dimer Quant (PE/DVT) 0.95 H (0.00-0.50) ug/ml VBG pH (7.32-7.43) VBG pCO2 (40-50) mmHG VBG pO2 (25-47) mmHG VBG HCO3 (21-28) mmol/L Sodium 140 (135-149) mmol/L Potassium 4.5 (3.6-5.1) mmol/L Chloride 96 (96-114) mmol/L Carbon Dioxide 39 H (20-32) mmol/L Anion Gap 5 L (7-15) mEq/L BUN 32 H (7-30) mg/dL Creatinine 1.5 (0.5-1.5) mg/dL Estimated Creat Clear 34.91 Estimated GFR 38 ml/min Glucose 99 (60-115) mg/dL Lactate 1.6 (0.5-1.9) mmol/L Calcium 8.8 (8.4-10.6) mg/dL Magnesium 2.2 (1.5-2.6) mg/dL Total Bilirubin 0.4 (0.1-1.5) mg/dL Direct Bilirubin 0.1 (0.0-0.5) mg/dL AST 456 H (12-35) U/L ALT 232 H (4-35) U/L Alkaline Phosphatase 72 (40-150) U/L Troponin I 0.03 (0.01-0.04) ng/mL C-Reactive Protein 4.0 H (0.5-1.0) mg/dL NT-Pro-B Natriuret Pep 5710 H (See Note) pg/mL Total Protein 6.9 (6.0-8.3) g/dL Albumin 3.6 (3.3-5.0) g/dL Urine Color Yellow (Yellow) Urine Appearance Clear (Clear) Urine pH 6.0 (5.0-8.5) Ur Specific [place] 1.020 (1.000-1.030) Urine Protein Negative (Negative) Urine Glucose (UA) Negative (Negative) Urine Ketones Negative (Negative) Urine Blood Negative (Negative) Urine Nitrite Negative (Negative) Urine Bilirubin Negative (Negative) Urine Urobilinogen 0.2 (0.2-1.0) Ur Leukocyte Esterase Negative (Negative) Urine RBC 0-2 (0-2) Urine WBC 2-5 (0-5) Ur Squamous Epith Cells Few (None-Few) Urine Bacteria Few A (None) Urine Mucus Moderate A (None) SARS-CoV-2 (PCR) Negative SARS-CoV-2 (Negative) Influenza Type A (PCR) Negative PCR FLU A (Negative) Influenza Type B (PCR) Negative PCR FLU B (Negative) RSV (PCR) Negative PCR RSV (Negative) Lab Acknowledgement POC Troponin I 0.02 (0.01-0.04) ng/ml 06/21/25 06/21/25 06/21/25 Range/Units 01:25 02:04 05:00 WBC (4.50-11.00) K/uL RBC (4.00-5.20) m/uL Hgb (12.0-16.0) gm/dL Hct (33.0-51.0) % MCV (80-100) fL MCH (26-34) pg MCHC (32-36) gm/dL RDW Coeff of Nicci (11.5-15.5) % Plt Count (140-440) K/uL Neut % (Auto) (42.0-72.0) % Lymph % (Auto) (20-44) % [place] % (Auto) (0.0-11.0) % Eos % (Auto) (0.0-7.0) % Baso % (Auto) (0.0-3.0) % Neut # (Auto) (1.7-7.0) K/uL Lymph # (Auto) (0.90-2.90) K/uL [place] # (Auto) (0.00-0.90) K/UL Eos # (Auto) (0.00-0.50) K/uL Baso # (Auto) (0.00-0.30) K/uL Abs Immat Gran (auto) (0.00-0.30) K/uL Imm/Tot Granulo (auto) % D-Dimer Quant (PE/DVT) (0.00-0.50) ug/ml VBG pH 7.384 7.382 (7.32-7.43) VBG pCO2 65 H* 66 H* (40-50) mmHG VBG pO2 < 30.1 < 30.1 (25-47) mmHG VBG HCO3 39 H 39 H (21-28) mmol/L Sodium (135-149) mmol/L Potassium (3.6-5.1) mmol/L Chloride (96-114) mmol/L Carbon Dioxide (20-32) mmol/L Anion Gap (7-15) mEq/L BUN (7-30) mg/dL Creatinine (0.5-1.5) mg/dL Estimated Creat Clear Estimated GFR ml/min Glucose (60-115) mg/dL Lactate 1.6 (0.5-1.9) mmol/L Calcium (8.4-10.6) mg/dL Magnesium (1.5-2.6) mg/dL Total Bilirubin (0.1-1.5) mg/dL Direct Bilirubin (0.0-0.5) mg/dL AST (12-35) U/L ALT (4-35) U/L Alkaline Phosphatase (40-150) U/L Troponin I (0.01-0.04) ng/mL C-Reactive Protein (0.5-1.0) mg/dL NT-Pro-B Natriuret Pep (See Note) pg/mL Total Protein (6.0-8.3) g/dL Albumin (3.3-5.0) g/dL Urine Color (Yellow) Urine Appearance (Clear) Urine pH (5.0-8.5) Ur Specific [place] (1.000-1.030) Urine Protein (Negative) Urine Glucose (UA) (Negative) Urine Ketones (Negative) Urine Blood (Negative) Urine Nitrite (Negative) Urine Bilirubin (Negative) Urine Urobilinogen (0.2-1.0) Ur Leukocyte Esterase (Negative) Urine RBC (0-2) Urine WBC (0-5) Ur Squamous Epith Cells (None-Few) Urine Bacteria (None) Urine Mucus (None) SARS-CoV-2 (PCR) (Negative) Influenza Type A (PCR) (Negative) Influenza Type B (PCR) (Negative) RSV (PCR) (Negative) Lab Acknowledgement Test Added POC Troponin I (0.01-0.04) ng/ml <Henry Haas MD - Last Filed: 06/21/25 21:43> Critical Care Time Critical Care Time Critical Care Time: Yes Attestation: The patient required my highest level preparedness to intervene emergently and I personally spent this critical care time directly and personally managing the patient. This critical care time included: Obtaining a history; Examining the patient; Pulse oximetry; Ordering and reviewing of studies; Arranging urgent treatment with development of a management plan; Evaluation of patients response to treatment; Frequent reassessment discussions with other providers. This critical care time was performed to assess and manage the high probability of imminent life-threatening deterioration that could result in multiorgan failure. It was exclusive of separate billable procedures and treating other patients and teaching time. <Henry Haas MD - Last Filed: 06/21/25 21:43> Total Critical Care Time in Minutes: 80 <Henry Haas MD - Last Filed: 06/21/25 21:43> Discharge Plan Discharge Clinical Impression: Respiratory failure, CHF exacerbation <Sara Plasencia MD - Last Filed: 06/20/25 23:49> Patient Disposition: Admitted As Inpatient <Sara Plasencia MD - Last Filed: 06/20/25 23:49> Condition: Guarded <Sara Plasencia MD - Last Filed: 06/20/25 23:49> Procedures ABG Interpretation ABG Results: 06/21/25 06/21/25 01:25 05:00 VBG pH 7.384 7.382 VBG pCO2 65 H* 66 H* VBG pO2 < 30.1 < 30.1 VBG HCO3 39 H 39 H <Sara Plasencia MD - Last Filed: 06/20/25 23:49> 06/21/25 06/21/25 01:25 05:00 VBG pH 7.384 7.382 VBG pCO2 65 H* 66 H* VBG pO2 < 30.1 < 30.1 VBG HCO3 39 H 39 H <Henry Haas MD - Last Filed: 06/21/25 21:43>
[2025-06-20 23:33] LABS: Lactate* 1.6 mmol/L (0.5-1.9)
[2025-06-20 23:36] LABS: Hematocrit 34.6 % (33.0-51.0); Hemoglobin* 10.3 gm/dL (12.0-16.0); Immature Granulocytes Abs Auto 0.06 K/uL (0.00-0.30); Immature Granulocytes Pct Auto 0.8 %; Mean Corpuscular HGB Conc 30 gm/dL (32-36); Mean Corpuscular Hemoglobin 29 pg (26-34); Mean Corpuscular Volume 98 fL (80-100); RDW Coefficient of Variation % 16.1 % (11.5-15.5); Red Blood Count 3.53 m/uL (4.00-5.20); White Blood Count* 7.98 K/uL (4.50-11.00)
[2025-06-20 23:40] LABS: PCR FLU A Negative PCR FLU A (Negative); PCR FLU B Negative PCR FLU B (Negative); PCR RSV Negative PCR RSV (Negative); SARS PCR* Negative SARS-CoV-2 (Negative)
[2025-06-20 23:40] LABS: Lymphocytes Absolute Auto 1.50 K/uL (0.90-2.90); Slide Review Reflex No
[2025-06-20 23:48] LABS: Albumin* 3.6 g/dL (3.3-5.0); Chloride* 96 mmol/L (96-114); Sodium* 140 mmol/L (135-149)
[2025-06-20] MEDS: FUROSEMIDE 10 MG/ML inj 40 MG IVP (23:48)
[2025-06-20 23:49] LABS: Potassium* 4.5 mmol/L (3.6-5.1)
[2025-06-20 23:51] LABS: Alanine Aminotransferase* 232 U/L (4-35); Anion Gap 5 mEq/L (7-15); Aspartate Amino Transferase* 456 U/L (12-35); Blood Urea Nitrogen* 32 mg/dL (7-30); Carbon Dioxide* 39 mmol/L (20-32); Creatinine* 1.5 mg/dL (0.5-1.5); Est. Creatinine Clearance* 34.91; Estimated Glomerular Filt Rate 38 ml/min; Total Protein* 6.9 g/dL (6.0-8.3)
[2025-06-20 23:52] LABS: Alkaline Phosphatase* 72 U/L (40-150); Bilirubin Direct* 0.1 mg/dL (0.0-0.5); Bilirubin Total* 0.4 mg/dL (0.1-1.5); Calcium* 8.8 mg/dL (8.4-10.6); Glucose* 99 mg/dL (60-115)
[2025-06-20 23:52] LABS: Appearance Urine Clear (Clear)
[2025-06-20 23:53] LABS: D Dimer Quantitative* 0.95 ug/ml (0.00-0.50)
--- NOTE | 2025-06-20 23:59 | CRLHL7_ITS ---
For Patients: As a result of the Century Cures Act, medical imaging exams and procedure reports are released immediately into your electronic medical record. You may view this report before your referring provider. If you have questions, please contact your health care provider. INDICATION: Pulmonary embolism (PE) suspected, shortness of breath. TECHNIQUE: CT chest PE was acquired with 95 cc Isovue 370 IV contrast. Multiplanar reformats performed including axial MIP reconstructions. COMPARISON: Chest x-ray 06/20/2025. CT chest 11/07/2023. FINDINGS: Heart and vasculature: No pulmonary embolism appreciated. There is cardiomegaly without pericardial effusion. There is reflux of contrast within the hepatic veins. Main pulmonary artery is mildly dilated to 3.1 cm. No thoracic aortic aneurysm. Lungs and pleura: Small right pleural effusion. No pneumothorax. Mild bilateral interlobular septal thickening. Bilateral multifocal nodules/consolidations with more streaky consolidations at the lung bases and scattered superimposed ground-glass attenuation. Patent central airways. Lymph nodes/mediastinum: Enlarged mediastinal lymph nodes with largest lower paratracheal lymph node measuring up to 1.1 cm in short axis (series 4, image 54). Chest wall: No suspicious chest wall mass or fluid collection. Upper abdomen: No acute abnormality. Bones: No acute abnormality. IMPRESSION: 1. No pulmonary embolism identified. 2. Multifocal bilateral pulmonary nodules/consolidations likely indicative of multifocal infectious/inflammatory process. Recommend short-term interval follow-up CT chest to ensure resolution/exclude underlying malignant potential. 3. Cardiomegaly. Mild bilateral interlobular septal thickening and scattered ground-glass attenuation may reflect sequelae of mild pulmonary edema. 4. Small right pleural effusion. 5. Mediastinal lymphadenopathy, likely reactive. 6. Mild dilatation of the main pulmonary artery which may be seen in the setting of pulmonary hypertension. Please note that all CT scans at this facility use dose modulation, iterative reconstruction, and/or weight-based dosing when appropriate to reduce radiation dose to as low as reasonably achievable. Dictated by Rachid Petit MD @ 06/21/2025 2:36:13 AM (Electronically Signed)
[2025-06-21] VITALS (59 sets, daily range): BP systolic 58–184; BP diastolic 34–105; PULSE 48–66; RESP 11–118; TEMP 36.4–37.1; O2SAT 80–96; BMI 34.0
[2025-06-21 00:03] LABS: NT Pro B Type NatriureticPept* 5710 pg/mL (See Note)
[2025-06-21] MEDS: FUROSEMIDE 10 MG/ML inj 20 MG IVP (01:19)
[2025-06-21 01:27] LABS: HCO3 VBG 39 mmol/L (21-28); PO2 VBG < 30.1 mmHG (25-47); pH VBG 7.384 (7.32-7.43)
[2025-06-21 01:29] LABS: Lactate* 1.6 mmol/L (0.5-1.9)
[2025-06-21 01:30] LABS: PCO2 VBG 65 mmHG (40-50)
[2025-06-21] MEDS: NITROGLYCERIN/DEXTROSE 25,000 MCG/250 ML BOTTLE 1.5 MCG IVPB (01:35)
[2025-06-21] MEDS: VANCOMYCIN 2 GM/400 ML 2 GM/400 ML PIGGYBACK IVPB (03:12)
--- NOTE | 2025-06-21 03:26 | CRLHL7_ITS ---
For Patients: As a result of the Century Cures Act, medical imaging exams and procedure reports are released immediately into your electronic medical record. You may view this report before your referring provider. If you have questions, please contact your health care provider. INDICATION: Elevated transaminases. TECHNIQUE: Ultrasound abdomen limited. Sonographic images of the right upper quadrant were obtained using kinsey-scale and color Doppler images. COMPARISON: None. FINDINGS: Liver: Evaluation limited by patient factors. Within limitations, the liver measures 19 centimeters in length, though this is nonspecific. Normal hepatic parenchyma. Hepatopetal flow in the main portal vein. Gallbladder: Cholecystectomy. Common bile duct: 5 mm. Pancreas: Pancreatic tail is not well visualized due to bowel gas. Remainder of the pancreas is unremarkable. Right kidney: Normal in size. Normal echotexture and cortex. No suspicious masses, stones, or hydronephrosis. Vasculature: Mild atherosclerosis of the aorta. IMPRESSION: Evaluation limited by patient factors. The liver measures 19 centimeters in length, which may represent hepatomegaly, but can be a normal variant. No biliary ductal dilation. Dictated by Mary Valdez MD @ 06/21/2025 5:35:14 AM (Electronically Signed)
[2025-06-21] MEDS: PIPERACILLIN/TAZOBACTAM 3.375 GM in 0.9 % SODIUM CHLORIDE Mini-bag 100 ML IVPB ×4 (03:33→22:04)
[2025-06-21 03:39] LABS: Troponin, Point-of-Care* 0.02 ng/ml (0.01-0.04)
[2025-06-21 05:07] LABS: HCO3 VBG 39 mmol/L (21-28); PO2 VBG < 30.1 mmHG (25-47); pH VBG 7.382 (7.32-7.43)
[2025-06-21 05:34] LABS: PCO2 VBG 66 mmHG (40-50)
--- NOTE | 2025-06-21 06:11 | W.PM.TELEH&P ---
Telehealth- H&P: HPI History of Present Illness Date Seen: 06/21/25 Chief complaint: abnormal vital signs Narrative: Gemini Wang is seen as an Interactive Telehealth visit. Gemini Wang is a 70 year old female who isWith past medical history significant for type 2 diabetes, seizure disorder, rheumatoid arthritis, diastolic CHF, PE, A-fib on chronic anticoagulation, opioid dependence, COPD on long-term steroids, bicuspid aortic valve, adrenal insufficiency who is presenting to the emergency department with not feeling well, found to have severe hypoxia. Patient was brought to the emergency department via EMS from [facility] for respiratory distress and hypoxia. Her pulse ox was noted to be 40% and bradycardia with HR 50. INitially her POLST read as comfort measures only however her POA was contacted and requested full work up and treatment and also confirm pt is DNR/DNI. Patient was seen and examined on Medr unit along with the nursing staff. Patient is currently on BiPAP requiring 10/5 with 50% oxygen. She is able to tell me her name and date of . She is otherwise awake and following commands. She is denying any acute pain. Workup in the emergency department showed white count 7.98, hemoglobin 10.3, hematocrit 34.6, platelets 237. D-dimer was 0.95, sodium 140, potassium 4.5, chloride 96, bicarb 39, anion gap 5, BUN 32, creatinine 1.5, glucose 99, lactate 1.6, calcium 8.8, magnesium 2.2, T. bili 0.4, direct bili 0.1. AST 456, ALT 232, CRP 4.0, proBNP 5710, UA showed few bacteria otherwise negative for nitrites, WBCs or leukocyte esterase. Respiratory panel was negative for influenza A, B, RSV or SARS-CoV-2. CTA chest showed no PE, showed multifocal bilateral pulmonary nodules/consolidations likely indicative of multifocal infectious/inflammatory process. Recommend short-term interval follow-up CT chest to ensure resolution or exclude underlying malignant potential. Cardiomegaly with mild bilateral interlobular septal thickening and scattered groundglass attenuation may reflect sequela of mild pulmonary edema. Small right pleural effusion. Mediastinal lymphadenopathy likely reactive. Mild dilatation of main pulmonary artery which may be seen in the setting of pulmonary hypertension. Abdominal ultrasound was done which showed liver measures 19 cm in length which may represent hepatomegaly but can also be a normal variant. No biliary ductal dilation. In the emergency department initial blood gas showed pH of 7.384, PCO2 65, pO2 less than 30. Patient was started on BiPAP and 3 hours later blood gas remains unchanged with the VBG showing pH of 7.38, PCO2 of 66. She was also given Lasix total 60 mg IV in the emergency department. She did have 1500 cc urine output in the emergency department. She was also given Vanco and Zosyn. Review of Systems Narrative: unable to get detailed ROS, pt on bipap and also has mild dementia. [facility] Medical History Obstructive sleep apnea ?G47.33 - Obstructive sleep apnea (adult) (pediatric) (ICD-10) 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 ?F06.70 - Mild neurocognitive disorder due to known physiological condition without behavioral disturbance (ICD-10) H/O stroke without residual deficits ?Z86.73 - Personal history of transient ischemic attack (TIA), and cerebral infarction without residual deficits (ICD-10) Transient ischemic attack (TIA) ?G45.9 - Transient cerebral ischemic attack, unspecified (ICD-10) Pulmonary embolus ?I26.99 - Other pulmonary embolism without acute cor pulmonale (ICD-10) Unspecified adrenocortical insufficiency ?E27.40 - Unspecified adrenocortical insufficiency (ICD-10) Diabetes type 2 ?E11.9 - Type 2 diabetes mellitus without complications (ICD-10) GERD without esophagitis ?K21.9 - Gastro-esophageal reflux disease without esophagitis (ICD-10) Chronic idiopathic constipation ?K59.04 - Chronic idiopathic constipation (ICD-10) PTSD (post-traumatic stress disorder) ?F43.10 - Post-traumatic stress disorder, unspecified (ICD-10) Anxiety ?F41.9 - Anxiety disorder, unspecified (ICD-10) Nonintractable epilepsy with complex partial seizures ?G40.209 - Localization-related (focal) (partial) symptomatic epilepsy and epileptic syndromes with complex partial seizures, not intractable, without status epilepticus (ICD-10) Rheumatoid arthritis ?M06.9 - Rheumatoid arthritis, unspecified (ICD-10) Acute on chronic diastolic (congestive) heart failure ?I50.33 - Acute on chronic diastolic (congestive) heart failure (ICD-10) Acute respiratory failure with hypoxia and hypercapnia ?J96.01 - Acute respiratory failure with hypoxia (ICD-10) ?J96.02 - Acute respiratory failure with hypercapnia (ICD-10) Opioid dependence ?F11.20 - Opioid dependence, uncomplicated (ICD-10) Cellulitis of both lower extremities ?L03.115 - Cellulitis of right lower limb (ICD-10) ?L03.116 - Cellulitis of left lower limb (ICD-10) Chronic hypoxemic respiratory failure ?J96.11 - Chronic respiratory failure with hypoxia (ICD-10) Chronic obstructive pulmonary disease on long-term inhaled steroid therapy ?J44.9 - Chronic obstructive pulmonary disease, unspecified (ICD-10) ?Z79.51 - custodial (current) use of inhaled steroids (ICD-10) Atrial fibrillation with RVR ?I48.91 - Unspecified atrial fibrillation (ICD-10) CHF (congestive heart failure) ?I50.9 - Heart failure, unspecified (ICD-10) Acute hyponatremia ?E87.1 - Hypo-osmolality and hyponatremia (ICD-10) Class 2 severe obesity with serious comorbidity in adult ?E66.812 - Obesity, class 2 (ICD-10) ?E66.01 - Morbid (severe) obesity due to excess calories (ICD-10) Seizure ?R56.9 - Unspecified convulsions (ICD-10) Paroxysmal atrial fibrillation ?I48.0 - Paroxysmal atrial fibrillation (ICD-10) Bicuspid aortic valve ?Q23.81 - Bicuspid aortic valve (ICD-10) Asthma ?J45.909 - Unspecified asthma, uncomplicated (ICD-10) Aortic aneurysm ?I71.9 - Aortic aneurysm of unspecified site, without rupture (ICD-10) Adrenal insufficiency ?E27.40 - Unspecified adrenocortical insufficiency (ICD-10) Surgical History H/O: hysterectomy ?Z90.710 - Acquired absence of both cervix and uterus (ICD-10) History of cholecystectomy ?Z90.49 - Acquired absence of other specified parts of digestive tract (ICD-10) Social History Smoking Status: Never smoker Do you use any of these nicotine containing products: None How often do you have a drink containing alcohol: never AUDIT-C Alcohol total score: 0 Meds Home Medications and Allergies Allergies Allergy/AdvReac Type Severity Reaction Status Date / Time aspirin Allergy Severe gi bleed Verified 06/20/25 22:23 codeine Allergy Severe Migraine Verified 06/20/25 22:23 cucumber Allergy Severe angioedema Verified 06/20/25 22:23 NSAIDS (Non-Steroidal Allergy Severe gi bleed Verified 06/20/25 22:23 Anti-Inflamma lactase Allergy Intermediate gi upset Verified 06/20/25 22:23 sulfamethoxazole (From Allergy Intermediate Hives Verified 06/20/25 22:23 Bactrim) sumatriptan Allergy Intermediate worsening Verified 06/20/25 22:23 headache trimethoprim (From Bactrim) Allergy Intermediate Hives Verified 06/20/25 22:23 levofloxacin Allergy Mild Rash Verified 06/20/25 22:23 Exam Narrative Exam Narrative: Physical Exam GENERAL: ?vital signs reviewed, Pt is currently on bipap, awake, answering basic questions, oriented to name and . HEENT: + Bipap on NECK: Supple HEART: Regular rate and rhythm without any rubs, murmurs, or gallops. LUNGS: + scaterred wheezing, + inspiratory crackles. ABDOMEN: Observation from nurse assisted exam, abdomen appears soft, nontender, and nondistended with Positive bowel sounds noted. EXTREMITIES: + lymphedema with b/l lower ext redness and tenderness. SKIN:? Observed warm and dry with color normal Const Vital Signs, click to edit/add: Vital Signs - 24 hr 06/20/25 22:05 06/20/25 22:05 06/20/25 22:07 Temperature 97.1 F L Pulse Rate 52 L 52 L Pulse Rate [Left Pulse Oximeter] 52 L Respiratory Rate 24 7 L Blood Pressure 135/61 Blood Pressure [Left Arm] Blood Pressure [Left Upper Arm] 135/61 Pulse Oximetry 57 L 56 L 81 L Oxygen Delivery Method Room Air Oxygen Flow Rate 06/20/25 22:15 06/20/25 22:16 06/20/25 22:30 Temperature Pulse Rate 50 L 53 L Pulse Rate [Left Pulse Oximeter] Respiratory Rate 14 14 Blood Pressure Blood Pressure [Left Arm] Blood Pressure [Left Upper Arm] Pulse Oximetry 81 L 63 L 85 L Oxygen Delivery Method Room Air Oxygen Flow Rate 06/20/25 22:43 06/20/25 22:45 06/20/25 22:48 Temperature Pulse Rate 50 L Pulse Rate [Left Pulse Oximeter] Respiratory Rate 18 Blood Pressure Blood Pressure [Left Arm] Blood Pressure [Left Upper Arm] Pulse Oximetry 63 L 88 90 Oxygen Delivery Method Oxygen Flow Rate 06/20/25 22:48 06/20/25 23:12 06/20/25 23:15 Temperature Pulse Rate 50 L Pulse Rate [Left Pulse Oximeter] Respiratory Rate 11 L 17 Blood Pressure 114/62 Blood Pressure [Left Arm] Blood Pressure [Left Upper Arm] Pulse Oximetry 90 86 L Oxygen Delivery Method OxyMask Oxygen Flow Rate 15 06/20/25 23:16 06/20/25 23:30 06/20/25 23:45 Temperature Pulse Rate 51 L 50 L 50 L Pulse Rate [Left Pulse Oximeter] Respiratory Rate 6 L 18 13 Blood Pressure Blood Pressure [Left Arm] Blood Pressure [Left Upper Arm] Pulse Oximetry 86 L 91 91 Oxygen Delivery Method Oxygen Flow Rate 06/21/25 00:00 06/21/25 00:15 06/21/25 00:25 Temperature Pulse Rate 50 L 50 L 50 L Pulse Rate [Left Pulse Oximeter] Respiratory Rate 13 19 14 Blood Pressure 119/68 Blood Pressure [Left Arm] Blood Pressure [Left Upper Arm] Pulse Oximetry 95 96 87 L Oxygen Delivery Method Oxygen Flow Rate 06/21/25 00:30 06/21/25 00:45 06/21/25 01:00 Temperature Pulse Rate 49 L 49 L 50 L Pulse Rate [Left Pulse Oximeter] Respiratory Rate 13 11 L 15 Blood Pressure Blood Pressure [Left Arm] Blood Pressure [Left Upper Arm] Pulse Oximetry 92 90 90 Oxygen Delivery Method Oxygen Flow Rate 06/21/25 01:15 06/21/25 01:30 06/21/25 01:43 Temperature Pulse Rate 51 L 50 L 51 L Pulse Rate [Left Pulse Oximeter] Respiratory Rate 13 11 L 13 Blood Pressure 184/78 H Blood Pressure [Left Arm] Blood Pressure [Left Upper Arm] Pulse Oximetry 80 L 87 L 86 L Oxygen Delivery Method Oxygen Flow Rate 06/21/25 01:44 06/21/25 01:45 06/21/25 01:48 Temperature Pulse Rate 50 L 49 L 50 L Pulse Rate [Left Pulse Oximeter] Respiratory Rate 13 15 12 Blood Pressure 128/105 H 108/65 Blood Pressure [Left Arm] Blood Pressure [Left Upper Arm] Pulse Oximetry 88 92 89 Oxygen Delivery Method Oxygen Flow Rate 06/21/25 01:52 06/21/25 01:56 06/21/25 05:38 Temperature 98.7 F Pulse Rate 49 L 49 L Pulse Rate [Left Pulse Oximeter] 56 L Respiratory Rate 15 13 13 Blood Pressure 107/64 107/63 Blood Pressure [Left Arm] 95/58 L Blood Pressure [Left Upper Arm] Pulse Oximetry 85 L 91 92 Oxygen Delivery Method BiPAP Oxygen Flow Rate Hospitalist - H&P: Result Labs Labs: Short CBC 06/20/25 Range/Units 23:25 WBC 7.98 (4.50-11.00) K/uL Hgb 10.3 L (12.0-16.0) gm/dL Hct 34.6 (33.0-51.0) % Plt Count 237 (140-440) K/uL BMP 06/20/25 23:25 Sodium 140 Potassium 4.5 Chloride 96 Carbon Dioxide 39 H BUN 32 H Creatinine 1.5 Glucose 99 Calcium 8.8 Cardiac Enzymes 06/20/25 Range/Units 23:25 Troponin I 0.03 (0.01-0.04) ng/mL Liver Function 06/20/25 Range/Units 23:25 Total Bilirubin 0.4 (0.1-1.5) mg/dL Direct Bilirubin 0.1 (0.0-0.5) mg/dL AST 456 H (12-35) U/L ALT 232 H (4-35) U/L Alkaline Phosphatase 72 (40-150) U/L Albumin 3.6 (3.3-5.0) g/dL Urine 06/20/25 Range/Units 23:40 Urine Color Yellow (Yellow) Urine Appearance Clear (Clear) Urine pH 6.0 (5.0-8.5) Ur Specific [place] 1.020 (1.000-1.030) Urine Protein Negative (Negative) Urine Glucose (UA) Negative (Negative) Assessment and Plan Assessment and plan (1) CHF exacerbation: Status: Acute (2) Respiratory failure: Status: Acute Plan Patient is a 70-year-old female with past medical history significant for mild cognitive impairment, history of CHF, A-fib, DVT on chronic anticoagulation with Eliquis, adrenal insufficiency on chronic steroids, RA, COPD, ANTHONY who presented to emergency department with severe hypoxia. Patient lives at [facility] care unit and staff noticed patient was not looking well. When EMS arrived they found patient's pulse ox to be in 40%, she was also bradycardic to high 40s and low 50s. She was started on 15 L oxy mask and was brought to the emergency department. Further workup in the emergency department did show bilateral multifocal pneumonia also findings of fluid overload. She was started on BiPAP. In the emergency department she has received Vanco, Zosyn and Lasix. # Acute Hypoxic Respiratory Failure requiring bipap # Multifocal Pneumonia # Acute on chronic CHF # AFib on Chronic AC - Pt is presented to ED with hypoxia. VBG with preserved PH. - cont with bipap, currently at 10/6 and Fio2 50% (currently being weaned don to 45%) - BP is running lower. Pt did have good urine output from lasix 60 mg IV. Further IV lasix in am if bp remains stable and after follow up labs. - echo in am. - cont with cardiac monitoring, strict ins and outs. - cont with NPO, Bipap. - cont with broadspectrum abx. - pt has known h/o adrenal will start on stress dose hydrocortisone. # Afib - resume AC # Seizure Disorder - resume home seizure meds once dose verified. # DVt proph: already on AC. Total Time Spent Total Time Spent: 60 Telehealth: Statement Statement Telehealth Visit: Today's History and Physical is provided via interactive telehealth by Dorothy Shannon MD.? Patient is located at [facility].? Provider is located at [facility].? Nursing staff assisted with the patient's exam. The visit being done today meets criteria for a telehealth visit and the patient or patient?s parent/guardian is aware the visit is a telehealth visit. Camera Start Time: 05:47 Camera End Time: 06:03
[2025-06-21] MEDS: SODIUM CHLORIDE 0.9 % (FLUSH) 10 ML SYRINGE 5 ML IVF ×4 (06:57→20:36)
[2025-06-21] MEDS: HYDROCORTISONE SOD SUCCINATE 50 MG/ML inj 100 MG IVP ×3 (06:57→22:05)
[2025-06-21] MEDS: DEXTROSE 50 % SYRINGE IVP (07:12)
--- NOTE | 2025-06-21 08:05 | PC.NURSE ---
Pt admitted from ED this morning with no family present. Pt only able to state her name and when asked upon assessment. Pt noted to be hypotensive and bradycardic upon admission which was also noted in ED. Tele in place with sinus bradycardia noted. Hart catheter in place and patent. BiPAP started in ED and continued on med/surg. Pt noted to have reddened and warm BLEs with maceration noted to left foot- dressing applied which is C/D/I. Pt NPO at this time. Bed alarm on for safety and call light within reach.
[2025-06-21 08:16] LABS: Hematocrit 33.7 % (33.0-51.0); Hemoglobin* 10.0 gm/dL (12.0-16.0); Immature Granulocytes Abs Auto 0.01 K/uL (0.00-0.30); Immature Granulocytes Pct Auto 0.1 %; Mean Corpuscular HGB Conc 30 gm/dL (32-36); Mean Corpuscular Hemoglobin 29 pg (26-34); Mean Corpuscular Volume 98 fL (80-100); RDW Coefficient of Variation % 15.9 % (11.5-15.5); Red Blood Count 3.45 m/uL (4.00-5.20); White Blood Count* 6.92 K/uL (4.50-11.00)
[2025-06-21 08:20] LABS: Lymphocytes Absolute Auto 1.20 K/uL (0.90-2.90); Slide Review Reflex No
[2025-06-21 08:34] LABS: Albumin* 3.3 g/dL (3.3-5.0); Chloride* 98 mmol/L (96-114); Potassium* 4.0 mmol/L (3.6-5.1); Sodium* 139 mmol/L (135-149)
[2025-06-21 08:37] LABS: Alanine Aminotransferase* 289 U/L (4-35); Alkaline Phosphatase* 57 U/L (40-150); Anion Gap 8 mEq/L (7-15); Aspartate Amino Transferase* 643 U/L (12-35); Bilirubin Direct* 0.1 mg/dL (0.0-0.5); Bilirubin Total* 0.5 mg/dL (0.1-1.5); Blood Urea Nitrogen* 30 mg/dL (7-30); Calcium* 8.4 mg/dL (8.4-10.6); Carbon Dioxide* 33 mmol/L (20-32); Creatinine* 1.2 mg/dL (0.5-1.5); Est. Creatinine Clearance* 43.63; Estimated Glomerular Filt Rate 49 ml/min; Glucose* 127 mg/dL (60-115); Total Protein* 6.3 g/dL (6.0-8.3)
[2025-06-21] MEDS: PERFLUTREN LIPID MICROSPHERES 2 ML VIAL IVP (10:06)
--- NOTE | 2025-06-21 10:15 | PC.PHA ---
Vancomycin consult note: Indication for vancomycin: [SEPSIS? PNEUMONIA] Age: [70] Height: [170 CM] Weight: [98.5 KG] Most recent SCr: [1.5] Estimated CrCL: [35] Recommended dose and frequency: [1.25 GM IV Q24 HOURS AFTER A 2 GM LOAD] to obtain an estimated AUC/MISTY of 400-600 mcg*hr/m 493 Additional comment: [ALSO ON PIP/TAZO]
--- NOTE | 2025-06-21 10:47 | CRLHL7_ITS ---
For Patients: As a result of the Century Cures Act, medical imaging exams and procedure reports are released immediately into your electronic medical record. You may view this report before your referring provider. If you have questions, please contact your health care provider. Indication: check picc placement Technique: AP view of the chest. Five total images. Comparison: 06/20/2025. Findings: Right PICC with tip initially in the right internal jugular vein. Final position of PICC with tip near the superior cavoatrial junction. Low lung volumes. Moderately enlarged cardiomediastinal silhouette. Diffuse interstitial prominence and [id number] patchy bilateral airspace opacities. Trace bilateral pleural effusions. No visualized pneumothorax. Partial visualization of cervical and lumbar spinal fusion hardware. Impression: 1. Right PICC with tip initially in the right internal jugular vein. Final position of PICC with tip near the superior cavoatrial junction. 2. Diffuse interstitial prominence and mild to moderate patchy bilateral airspace opacities. Trace bilateral pleural effusions. Findings may represent moderate pulmonary edema or multifocal infection. Dictated by Anirudh Rolon MD @ 06/21/2025 3:49:40 PM (Electronically Signed)
[2025-06-21] MEDS: NORepinephrine INFUSION 4,000 MCG/250 ML PLAST..BAG 18.46 MCG IVPB (11:49)
[2025-06-21] MEDS: FUROSEMIDE 10 MG/ML inj 40 MG IVP (12:27)
--- NOTE | 2025-06-21 13:30 | PM.IMPN1 ---
Assessment and Plan Assessment and plan (1) Acute on chronic respiratory failure with hypoxia and hypercapnia: Problem comment: -likely secondary to exacerbation of her heart failure. -CT chest showed pulmonary edema and Small right pleural effusion. In addition to a picture of multifocal nodules versus consolidations so white spectrum IV antibiotics were started (vanc plus Zosyn). - MRSA screen ordered, if it comes back negative will deescalate antibiotics. -patient required BiPAP for a few hours since admission. -initial blood gas showed pH of 7.384, PCO2 65, pO2 less than 30. Status: Acute (2) Shock, cardiogenic: Problem comment: -likely secondary to exacerbation of heart failure -patient requiring norepinephrine drip at a low dose to keep her mean arterial pressure more than 65 mmHg -patient will likely need norepinephrine intermittently to be able to diurese her. 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 Ejection fraction preserved at 60-65%. -status post Lasix IV 60 mg total yesterday night. -will start her on Lasix IV 40 b.i.d., need to be given after checking her blood pressure. Status: Acute (3) Acute exacerbation of chronic heart failure: Problem comment: As above Status: Acute (4) Chronic adrenal insufficiency: Problem comment: -chronic adrenal insufficiency secondary to chronic use of steroids for COPD. -Started critical illness prophylaxis dose of hydrocortisone IV 100 mg q.8 hours Status: Acute (5) Chronic diastolic heart failure: Problem comment: As above Status: Acute (6) Chronic a-fib: Problem comment: On apixaban Status: Acute (7) History of COPD: Status: Acute (8) Diabetes: Status: Acute (9) Epilepsy: Status: Acute (10) Elevated liver transaminase level: Status: Acute (11) Lung nodules: Problem comment: CT : Multifocal bilateral pulmonary nodules/consolidations likely indicative of multifocal infectious/inflammatory process. Recommend short-term interval follow-up CT chest to ensure resolution/exclude underlying malignant potential, as an outpt. Status: Acute Total Time Spent Total Time Spent: Today I spent 50 minutes seeing the patient, reviewing Expanse and EPIC notes/diagnostics, discussing the care plan with our care time that includes social work, PT/OT, pharmacy, RT, group home and documenting my impressions and plan in the medical record. Exam Narrative: Exam Narrative: Physical exam GENERAL: Patient responds to calling her. Able to answer simple questions HEAD AND NECK: Atraumatic, normocephalic CARDIOVASCULAR: Bradycardic. Normal S1, S2. No murmurs. RESPIRATORY: Bilateral rhonchi on examination. On BiPAP, transitioned for a trial of oxygen mask. GASTROINTESTINAL: Not tender to palpation. NEUROLOGY: Patient responds to calling her. Able to answer simple questions Const: Vital Signs, click to edit/add: Vital Signs - 24 hr 06/20/25 22:05 06/20/25 22:05 06/20/25 22:07 Temperature 97.1 F L Pulse Rate 52 L 52 L Pulse Rate [Left P ulse Oximeter] 52 L Respiratory Rate 24 7 L Blood Pressure 135/61 Blood Pressure [Le ft Arm] Blood Pressure [Le ft Upper Arm] 135/61 Pulse Oximetry 57 L 56 L 81 L Oxygen Delivery Me thod Room Air Oxygen Flow Rate Fraction of Inspir ed Oxygen 06/20/25 22:15 06/20/25 22:16 06/20/25 22:30 Temperature Pulse Rate 50 L 53 L Pulse Rate [Left P ulse Oximeter] Respiratory Rate 14 14 Blood Pressure Blood Pressure [Le ft Arm] Blood Pressure [Le ft Upper Arm] Pulse Oximetry 81 L 63 L 85 L Oxygen Delivery Me thod Room Air Oxygen Flow Rate Fraction of Inspir ed Oxygen 06/20/25 22:43 06/20/25 22:45 06/20/25 22:48 Temperature Pulse Rate 50 L Pulse Rate [Left P ulse Oximeter] Respiratory Rate 18 Blood Pressure Blood Pressure [Le ft Arm] Blood Pressure [Le ft Upper Arm] Pulse Oximetry 63 L 88 90 Oxygen Delivery Me thod Oxygen Flow Rate Fraction of Inspir ed Oxygen 06/20/25 22:48 06/20/25 23:12 06/20/25 23:15 Temperature Pulse Rate 50 L Pulse Rate [Left P ulse Oximeter] Respiratory Rate 11 L 17 Blood Pressure 114/62 Blood Pressure [Le ft Arm] Blood Pressure [Le ft Upper Arm] Pulse Oximetry 90 86 L Oxygen Delivery Me thod OxyMask Oxygen Flow Rate 15 Fraction of Inspir ed Oxygen 06/20/25 23:16 06/20/25 23:30 06/20/25 23:45 Temperature Pulse Rate 51 L 50 L 50 L Pulse Rate [Left P ulse Oximeter] Respiratory Rate 6 L 18 13 Blood Pressure Blood Pressure [Le ft Arm] Blood Pressure [Le ft Upper Arm] Pulse Oximetry 86 L 91 91 Oxygen Delivery Me thod Oxygen Flow Rate Fraction of Inspir ed Oxygen 06/21/25 00:00 06/21/25 00:15 06/21/25 00:25 Temperature Pulse Rate 50 L 50 L 50 L Pulse Rate [Left P ulse Oximeter] Respiratory Rate 13 19 14 Blood Pressure 119/68 Blood Pressure [Le ft Arm] Blood Pressure [Le ft Upper Arm] Pulse Oximetry 95 96 87 L Oxygen Delivery Me thod Oxygen Flow Rate Fraction of Inspir ed Oxygen 06/21/25 00:30 06/21/25 00:45 06/21/25 01:00 Temperature Pulse Rate 49 L 49 L 50 L Pulse Rate [Left P ulse Oximeter] Respiratory Rate 13 11 L 15 Blood Pressure Blood Pressure [Le ft Arm] Blood Pressure [Le ft Upper Arm] Pulse Oximetry 92 90 90 Oxygen Delivery Me thod Oxygen Flow Rate Fraction of Inspir ed Oxygen 06/21/25 01:15 06/21/25 01:30 06/21/25 01:43 Temperature Pulse Rate 51 L 50 L 51 L Pulse Rate [Left P ulse Oximeter] Respiratory Rate 13 11 L 13 Blood Pressure 184/78 H Blood Pressure [Le ft Arm] Blood Pressure [Le ft Upper Arm] Pulse Oximetry 80 L 87 L 86 L Oxygen Delivery Me thod Oxygen Flow Rate Fraction of Inspir ed Oxygen 06/21/25 01:44 06/21/25 01:45 06/21/25 01:48 Temperature Pulse Rate 50 L 49 L 50 L Pulse Rate [Left P ulse Oximeter] Respiratory Rate 13 15 12 Blood Pressure 128/105 H 108/65 Blood Pressure [Le ft Arm] Blood Pressure [Le ft Upper Arm] Pulse Oximetry 88 92 89 Oxygen Delivery Me thod Oxygen Flow Rate Fraction of Inspir ed Oxygen 06/21/25 01:52 06/21/25 01:56 06/21/25 05:33 Temperature Pulse Rate 49 L 49 L 50 L Pulse Rate [Left P ulse Oximeter] Respiratory Rate 15 13 Blood Pressure 107/64 107/63 Blood Pressure [Le ft Arm] Blood Pressure [Le ft Upper Arm] Pulse Oximetry 85 L 91 Oxygen Delivery Me thod Oxygen Flow Rate Fraction of Inspir ed Oxygen 06/21/25 05:38 06/21/25 05:46 06/21/25 05:46 Temperature 98.7 F 98.7 F Pulse Rate Pulse Rate [Left P ulse Oximeter] 56 L 56 L Respiratory Rate 13 13 13 Blood Pressure Blood Pressure [Le ft Arm] 95/58 L 95/58 L Blood Pressure [Le ft Upper Arm] Pulse Oximetry 92 92 92 Oxygen Delivery Me thod BiPAP BiPAP BiPAP Oxygen Flow Rate Fraction of Inspir ed Oxygen 06/21/25 07:30 06/21/25 08:00 06/21/25 08:00 Temperature Pulse Rate 50 L Pulse Rate [Left P ulse Oximeter] 48 L Respiratory Rate 12 Blood Pressure Blood Pressure [Le ft Arm] 108/61 106/57 L Blood Pressure [Le ft Upper Arm] Pulse Oximetry 90 92 Oxygen Delivery Me thod BiPAP BiPAP Oxygen Flow Rate 50 Fraction of Inspir ed Oxygen 45 06/21/25 08:23 06/21/25 08:30 06/21/25 09:00 Temperature 97.5 F L Pulse Rate Pulse Rate [Left P ulse Oximeter] 49 L 49 L 51 L Respiratory Rate 18 118 H 16 Blood Pressure Blood Pressure [Le ft Arm] 94/56 L 104/57 L Blood Pressure [Le ft Upper Arm] Pulse Oximetry 90 95 Oxygen Delivery Me thod BiPAP BiPAP Oxygen Flow Rate 7.8 Fraction of Inspir ed Oxygen 50 50 06/21/25 09:30 06/21/25 10:00 06/21/25 10:36 Temperature 98.6 F Pulse Rate Pulse Rate [Left P ulse Oximeter] 51 L 50 L 49 L Respiratory Rate 14 14 15 Blood Pressure Blood Pressure [Le ft Arm] 101/55 L 97/55 L 88/52 L Blood Pressure [Le ft Upper Arm] Pulse Oximetry 86 L 87 L 87 L Oxygen Delivery Me thod BiPAP BiPAP BiPAP Oxygen Flow Rate Fraction of Inspir ed Oxygen 50 50 50 06/21/25 11:00 06/21/25 11:00 06/21/25 11:00 Temperature Pulse Rate 51 L Pulse Rate [Left P ulse Oximeter] 51 L 51 L Respiratory Rate 12 12 Blood Pressure Blood Pressure [Le ft Arm] 94/53 L Blood Pressure [Le ft Upper Arm] Pulse Oximetry 88 Oxygen Delivery Me thod BiPAP Oxygen Flow Rate Fraction of Inspir ed Oxygen 50 06/21/25 11:30 06/21/25 12:03 06/21/25 12:05 Temperature Pulse Rate Pulse Rate [Left P ulse Oximeter] 50 L 53 L 54 L Respiratory Rate 12 15 12 Blood Pressure Blood Pressure [Le ft Arm] 88/48 L 104/59 L 128/69 Blood Pressure [Le ft Upper Arm] Pulse Oximetry 87 L 89 90 Oxygen Delivery Me thod BiPAP BiPAP BiPAP Oxygen Flow Rate Fraction of Inspir ed Oxygen 50 50 50 06/21/25 12:10 06/21/25 12:15 06/21/25 12:20 Temperature Pulse Rate Pulse Rate [Left P ulse Oximeter] 54 L Respiratory Rate Blood Pressure Blood Pressure [Le ft Arm] 118/64 114/56 L 100/57 L Blood Pressure [Le ft Upper Arm] Pulse Oximetry 90 88 89 Oxygen Delivery Me thod BiPAP BiPAP OxyMask Oxygen Flow Rate 5 Fraction of Inspir ed Oxygen 50 50 06/21/25 12:37 Temperature Pulse Rate Pulse Rate [Left P ulse Oximeter] 57 L Respiratory Rate 17 Blood Pressure Blood Pressure [Le ft Arm] 99/64 Blood Pressure [Le ft Upper Arm] Pulse Oximetry 86 L Oxygen Delivery Me thod OxyMask Oxygen Flow Rate 6 Fraction of Inspir ed Oxygen Labs Labs: Laboratory Results - last 24 hr 06/20/25 06/20/25 06/20/25 22:55 23:25 23:40 WBC 7.98 RBC 3.53 L Hgb 10.3 L Hct 34.6 MCV 98 MCH 29 MCHC 30 L RDW Coeff of Nicci 16.1 H Plt Count 237 Neut % (Auto) 68.0 Lymph % (Auto) 18.3 L [place] % (Auto) 12.0 H Eos % (Auto) 0.3 Baso % (Auto) 0.6 Neut # (Auto) 5.43 Lymph # (Auto) 1.50 Victoria # (Auto) 1.00 H Eos # (Auto) 0.02 Baso # (Auto) 0.05 Abs Immat Gran (auto) 0.06 Imm/Tot Granulo (auto) 0.8 D-Dimer Quant (PE/DVT) 0.95 H VBG pH VBG pCO2 VBG pO2 VBG HCO3 Sodium 140 Potassium 4.5 Chloride 96 Carbon Dioxide 39 H Anion Gap 5 L BUN 32 H Creatinine 1.5 Estimated Creat Clear 34.91 Estimated GFR 38 Glucose 99 Lactate 1.6 Calcium 8.8 Magnesium 2.2 Total Bilirubin 0.4 Direct Bilirubin 0.1 AST 456 H ALT 232 H Alkaline Phosphatase 72 Troponin I 0.03 C-Reactive Protein 4.0 H NT-Pro-B Natriuret Pep 5710 H Total Protein 6.9 Albumin 3.6 Urine Color Yellow Urine Appearance Clear Urine pH 6.0 Ur Specific [place] 1.020 Urine Protein Negative Urine Glucose (UA) Negative Urine Ketones Negative Urine Blood Negative Urine Nitrite Negative Urine Bilirubin Negative Urine Urobilinogen 0.2 Ur Leukocyte Esterase Negative Urine RBC 0-2 Urine WBC 2-5 Ur Squamous Epith Cells Few Urine Bacteria Few A Urine Mucus Moderate A SARS-CoV-2 (PCR) Negative SARS-CoV-2 Influenza Type A (PCR) Negative PCR FLU A Influenza Type B (PCR) Negative PCR FLU B RSV (PCR) Negative PCR RSV Lab Acknowledgement POC Troponin I 0.02 06/21/25 06/21/25 06/21/25 01:25 02:04 05:00 WBC RBC Hgb Hct MCV MCH MCHC RDW Coeff of Nicci Plt Count Neut % (Auto) Lymph % (Auto) Victoria % (Auto) Eos % (Auto) Baso % (Auto) Neut # (Auto) Lymph # (Auto) [place] # (Auto) Eos # (Auto) Baso # (Auto) Abs Immat Gran (auto) Imm/Tot Granulo (auto) D-Dimer Quant (PE/DVT) VBG pH 7.384 7.382 VBG pCO2 65 H* 66 H* VBG pO2 < 30.1 < 30.1 VBG HCO3 39 H 39 H Sodium Potassium Chloride Carbon Dioxide Anion Gap BUN Creatinine Estimated Creat Clear Estimated GFR Glucose Lactate 1.6 Calcium Magnesium Total Bilirubin Direct Bilirubin AST ALT Alkaline Phosphatase Troponin I C-Reactive Protein NT-Pro-B Natriuret Pep Total Protein Albumin Urine Color Urine Appearance Urine pH Ur Specific [place] Urine Protein Urine Glucose (UA) Urine Ketones Urine Blood Urine Nitrite Urine Bilirubin Urine Urobilinogen Ur Leukocyte Esterase Urine RBC Urine WBC Ur Squamous Epith Cells Urine Bacteria Urine Mucus SARS-CoV-2 (PCR) Influenza Type A (PCR) Influenza Type B (PCR) RSV (PCR) Lab Acknowledgement Test Added POC Troponin I 06/21/25 08:01 WBC 6.92 RBC 3.45 L Hgb 10.0 L Hct 33.7 MCV 98 MCH 29 MCHC 30 L RDW Coeff of Nicci 15.9 H Plt Count 192 Neut % (Auto) 68.0 Lymph % (Auto) 17.9 L [place] % (Auto) 12.6 H Eos % (Auto) 0.7 Baso % (Auto) 0.7 Neut # (Auto) 4.70 Lymph # (Auto) 1.20 [place] # (Auto) 0.90 Eos # (Auto) 0.05 Baso # (Auto) 0.05 Abs Immat Gran (auto) 0.01 Imm/Tot Granulo (auto) 0.1 D-Dimer Quant (PE/DVT) VBG pH VBG pCO2 VBG pO2 VBG HCO3 Sodium 139 Potassium 4.0 Chloride 98 Carbon Dioxide 33 H Anion Gap 8 BUN 30 Creatinine 1.2 Estimated Creat Clear 43.63 Estimated GFR 49 Glucose 127 H Lactate Calcium 8.4 Magnesium Total Bilirubin 0.5 Direct Bilirubin 0.1 AST 643 H ALT 289 H Alkaline Phosphatase 57 Troponin I C-Reactive Protein NT-Pro-B Natriuret Pep Total Protein 6.3 Albumin 3.3 Urine Color Urine Appearance Urine pH Ur Specific [place] Urine Protein Urine Glucose (UA) Urine Ketones Urine Blood Urine Nitrite Urine Bilirubin Urine Urobilinogen Ur Leukocyte Esterase Urine RBC Urine WBC Ur Squamous Epith Cells Urine Bacteria Urine Mucus SARS-CoV-2 (PCR) Influenza Type A (PCR) Influenza Type B (PCR) RSV (PCR) Lab Acknowledgement POC Troponin I Imaging US - abdomen: Radiologist's impression: INDICATION: Elevated transaminases. TECHNIQUE: Ultrasound abdomen limited. Sonographic images of the right upper quadrant were obtained using kinsey-scale and color Doppler images. COMPARISON: None. FINDINGS: Liver: Evaluation limited by patient factors. Within limitations, the liver measures 19 centimeters in length, though this is nonspecific. Normal hepatic parenchyma. Hepatopetal flow in the main portal vein. Gallbladder: Cholecystectomy. Common bile duct: 5 mm. Pancreas: Pancreatic tail is not well visualized due to bowel gas. Remainder of the pancreas is unremarkable. Right kidney: Normal in size. Normal echotexture and cortex. No suspicious masses, stones, or hydronephrosis. Vasculature: Mild atherosclerosis of the aorta. IMPRESSION: Evaluation limited by patient factors. The liver measures 19 centimeters in length, which may represent hepatomegaly, but can be a normal variant. No biliary ductal dilation.
--- NOTE | 2025-06-21 14:06 | P.CCPN_ITS ---
Critical Care - PN: Subjective Date of Service Date Seen: 06/21/25 Subjective Subjective: Patient was seen and examined at bedside multiple times a day. When patient was admitted she was obtunded, but later on with the treatment that she was given she currently opens her eyes to calling her name and is answering simple questions. Patient knows that she is in a hospital but she thinks she is in [place]. She used to be on BiPAP but we are having an oxygen mask at 6 liters/minute trial will do a VBG to assess her blood gases. Ordered PICC line. Patient received a small amount of epinephrine for severe hypotension. Hart's catheter in. On apixaban for DVT prophylaxis. Talked to her daughter Yusra and updated her on current management and prognosis. They do not want intubation in case of failure of BiPAP. DNR/DNI. Exam Narrative: Exam Narrative: Physical exam GENERAL: Responds to calling her name. Answers simple questions. HEAD AND NECK: Atraumatic, normocephalic CARDIOVASCULAR: Bradycardic. Normal S1, S2. No murmurs. RESPIRATORY: Positive for rhonchi. Currently on oxygen mask tried 6 liter/minute GASTROINTESTINAL: Obese, not tender to palpation. NEUROLOGY: Responds to calling her name. Answers simple questions. Const: Vital Signs, click to edit/add: Vital Signs - 24 hr 06/20/25 22:05 06/20/25 22:05 06/20/25 22:07 Temperature 97.1 F L Pulse Rate 52 L 52 L Pulse Rate [Left P ulse Oximeter] 52 L Respiratory Rate 24 7 L Blood Pressure 135/61 Blood Pressure [Le ft Arm] Blood Pressure [Le ft Upper Arm] 135/61 Pulse Oximetry 57 L 56 L 81 L Oxygen Delivery Me thod Room Air Oxygen Flow Rate Fraction of Inspir ed Oxygen 06/20/25 22:15 06/20/25 22:16 06/20/25 22:30 Temperature Pulse Rate 50 L 53 L Pulse Rate [Left P ulse Oximeter] Respiratory Rate 14 14 Blood Pressure Blood Pressure [Le ft Arm] Blood Pressure [Le ft Upper Arm] Pulse Oximetry 81 L 63 L 85 L Oxygen Delivery Me thod Room Air Oxygen Flow Rate Fraction of Inspir ed Oxygen 06/20/25 22:43 06/20/25 22:45 06/20/25 22:48 Temperature Pulse Rate 50 L Pulse Rate [Left P ulse Oximeter] Respiratory Rate 18 Blood Pressure Blood Pressure [Le ft Arm] Blood Pressure [Le ft Upper Arm] Pulse Oximetry 63 L 88 90 Oxygen Delivery Me thod Oxygen Flow Rate Fraction of Inspir ed Oxygen 06/20/25 22:48 06/20/25 23:12 06/20/25 23:15 Temperature Pulse Rate 50 L Pulse Rate [Left P ulse Oximeter] Respiratory Rate 11 L 17 Blood Pressure 114/62 Blood Pressure [Le ft Arm] Blood Pressure [Le ft Upper Arm] Pulse Oximetry 90 86 L Oxygen Delivery Me thod OxyMask Oxygen Flow Rate 15 Fraction of Inspir ed Oxygen 06/20/25 23:16 06/20/25 23:30 06/20/25 23:45 Temperature Pulse Rate 51 L 50 L 50 L Pulse Rate [Left P ulse Oximeter] Respiratory Rate 6 L 18 13 Blood Pressure Blood Pressure [Le ft Arm] Blood Pressure [Le ft Upper Arm] Pulse Oximetry 86 L 91 91 Oxygen Delivery Me thod Oxygen Flow Rate Fraction of Inspir ed Oxygen 06/21/25 00:00 06/21/25 00:15 06/21/25 00:25 Temperature Pulse Rate 50 L 50 L 50 L Pulse Rate [Left P ulse Oximeter] Respiratory Rate 13 19 14 Blood Pressure 119/68 Blood Pressure [Le ft Arm] Blood Pressure [Le ft Upper Arm] Pulse Oximetry 95 96 87 L Oxygen Delivery Me thod Oxygen Flow Rate Fraction of Inspir ed Oxygen 06/21/25 00:30 06/21/25 00:45 06/21/25 01:00 Temperature Pulse Rate 49 L 49 L 50 L Pulse Rate [Left P ulse Oximeter] Respiratory Rate 13 11 L 15 Blood Pressure Blood Pressure [Le ft Arm] Blood Pressure [Le ft Upper Arm] Pulse Oximetry 92 90 90 Oxygen Delivery Me thod Oxygen Flow Rate Fraction of Inspir ed Oxygen 06/21/25 01:15 06/21/25 01:30 06/21/25 01:43 Temperature Pulse Rate 51 L 50 L 51 L Pulse Rate [Left P ulse Oximeter] Respiratory Rate 13 11 L 13 Blood Pressure 184/78 H Blood Pressure [Le ft Arm] Blood Pressure [Le ft Upper Arm] Pulse Oximetry 80 L 87 L 86 L Oxygen Delivery Me thod Oxygen Flow Rate Fraction of Inspir ed Oxygen 06/21/25 01:44 06/21/25 01:45 06/21/25 01:48 Temperature Pulse Rate 50 L 49 L 50 L Pulse Rate [Left P ulse Oximeter] Respiratory Rate 13 15 12 Blood Pressure 128/105 H 108/65 Blood Pressure [Le ft Arm] Blood Pressure [Le ft Upper Arm] Pulse Oximetry 88 92 89 Oxygen Delivery Me thod Oxygen Flow Rate Fraction of Inspir ed Oxygen 06/21/25 01:52 06/21/25 01:56 06/21/25 05:33 Temperature Pulse Rate 49 L 49 L 50 L Pulse Rate [Left P ulse Oximeter] Respiratory Rate 15 13 Blood Pressure 107/64 107/63 Blood Pressure [Le ft Arm] Blood Pressure [Le ft Upper Arm] Pulse Oximetry 85 L 91 Oxygen Delivery Me thod Oxygen Flow Rate Fraction of Inspir ed Oxygen 06/21/25 05:38 06/21/25 05:46 06/21/25 05:46 Temperature 98.7 F 98.7 F Pulse Rate Pulse Rate [Left P ulse Oximeter] 56 L 56 L Respiratory Rate 13 13 13 Blood Pressure Blood Pressure [Le ft Arm] 95/58 L 95/58 L Blood Pressure [Le ft Upper Arm] Pulse Oximetry 92 92 92 Oxygen Delivery Me thod BiPAP BiPAP BiPAP Oxygen Flow Rate Fraction of Inspir ed Oxygen 06/21/25 07:30 06/21/25 08:00 06/21/25 08:00 Temperature Pulse Rate 50 L Pulse Rate [Left P ulse Oximeter] 48 L Respiratory Rate 12 Blood Pressure Blood Pressure [Le ft Arm] 108/61 106/57 L Blood Pressure [Le ft Upper Arm] Pulse Oximetry 90 92 Oxygen Delivery Me thod BiPAP BiPAP Oxygen Flow Rate 50 Fraction of Inspir ed Oxygen 45 06/21/25 08:23 06/21/25 08:30 06/21/25 09:00 Temperature 97.5 F L Pulse Rate Pulse Rate [Left P ulse Oximeter] 49 L 49 L 51 L Respiratory Rate 18 118 H 16 Blood Pressure Blood Pressure [Le ft Arm] 94/56 L 104/57 L Blood Pressure [Le ft Upper Arm] Pulse Oximetry 90 95 Oxygen Delivery Me thod BiPAP BiPAP Oxygen Flow Rate 7.8 Fraction of Inspir ed Oxygen 50 50 06/21/25 09:30 06/21/25 10:00 06/21/25 10:36 Temperature 98.6 F Pulse Rate Pulse Rate [Left P ulse Oximeter] 51 L 50 L 49 L Respiratory Rate 14 14 15 Blood Pressure Blood Pressure [Le ft Arm] 101/55 L 97/55 L 88/52 L Blood Pressure [Le ft Upper Arm] Pulse Oximetry 86 L 87 L 87 L Oxygen Delivery Me thod BiPAP BiPAP BiPAP Oxygen Flow Rate Fraction of Inspir ed Oxygen 50 50 50 06/21/25 11:00 06/21/25 11:00 06/21/25 11:00 Temperature Pulse Rate 51 L Pulse Rate [Left P ulse Oximeter] 51 L 51 L Respiratory Rate 12 12 Blood Pressure Blood Pressure [Le ft Arm] 94/53 L Blood Pressure [Le ft Upper Arm] Pulse Oximetry 88 Oxygen Delivery Me thod BiPAP Oxygen Flow Rate Fraction of Inspir ed Oxygen 50 06/21/25 11:30 06/21/25 12:03 06/21/25 12:05 Temperature Pulse Rate Pulse Rate [Left P ulse Oximeter] 50 L 53 L 54 L Respiratory Rate 12 15 12 Blood Pressure Blood Pressure [Le ft Arm] 88/48 L 104/59 L 128/69 Blood Pressure [Le ft Upper Arm] Pulse Oximetry 87 L 89 90 Oxygen Delivery Me thod BiPAP BiPAP BiPAP Oxygen Flow Rate Fraction of Inspir ed Oxygen 50 50 50 06/21/25 12:10 06/21/25 12:15 06/21/25 12:20 Temperature Pulse Rate Pulse Rate [Left P ulse Oximeter] 54 L Respiratory Rate Blood Pressure Blood Pressure [Le ft Arm] 118/64 114/56 L 100/57 L Blood Pressure [Le ft Upper Arm] Pulse Oximetry 90 88 89 Oxygen Delivery Me thod BiPAP BiPAP OxyMask Oxygen Flow Rate 5 Fraction of Inspir ed Oxygen 50 50 06/21/25 12:37 Temperature Pulse Rate Pulse Rate [Left P ulse Oximeter] 57 L Respiratory Rate 17 Blood Pressure Blood Pressure [Le ft Arm] 99/64 Blood Pressure [Le ft Upper Arm] Pulse Oximetry 86 L Oxygen Delivery Me thod OxyMask Oxygen Flow Rate 6 Fraction of Inspir ed Oxygen Critical Care - PN: Obj Data Intake/Output 24h intake & output: Net balance: -1433.664 ml Recent Vital Signs Oxygen: S/P Bipap Oxygen mask trial 6 liter/minute Hart Hart catheter?: Yes Critical Care - PN: A&P Assessment and plan (1) Acute on chronic respiratory failure with hypoxia and hypercapnia: Problem details: -likely secondary to exacerbation of her heart failure. -CT chest showed pulmonary edema and Small right pleural effusion. In addition to a picture of multifocal nodules versus consolidations so white spectrum IV antibiotics were started (vanc plus Zosyn). - MRSA screen ordered, if it comes back negative will deescalate antibiotics. -patient required BiPAP for a few hours since admission. -initial blood gas showed pH of 7.384, PCO2 65, pO2 less than 30. -monitor VBG. Status: Acute (2) Shock, cardiogenic: Problem details: -likely secondary to exacerbation of heart failure -patient requiring norepinephrine drip at a low dose to keep her mean arterial pressure more than 65 mmHg -patient will likely need norepinephrine intermittently to be able to diurese her. 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 Ejection fraction preserved at 60-65%. -status post Lasix IV 60 mg total yesterday night. -will start her on Lasix IV 40 b.i.d., need to be given after checking her blood pressure. Status: Acute (3) Acute exacerbation of chronic heart failure: Problem details: As above cont with cardiac monitoring, strict ins and outs. Status: Acute (4) Chronic adrenal insufficiency: Problem details: -chronic adrenal insufficiency secondary to chronic use of steroids for COPD. -Started critical illness prophylaxis dose of hydrocortisone IV 100 mg q.8 hours Status: Acute (5) Elevated liver transaminase level: Problem details: AST about 640, ALT about 300 Likely secondary to severe hypotension Will monitor. Status: Acute (6) Chronic diastolic heart failure: Problem details: As above Status: Acute (7) Chronic a-fib: Problem details: On apixaban Status: Acute (8) History of COPD: Problem details: Currently patient is being treated with IV antibiotics and IV steroids O2 saturation target 88-92% Use BiPAP as needed Status: Acute (9) Diabetes: Problem details: Start insulin sliding scale Status: Acute (10) Epilepsy: Problem details: Resume her home meds Status: Acute (11) Lung nodules: Problem details: CT : Multifocal bilateral pulmonary nodules/consolidations likely indicative of multifocal infectious/inflammatory process. Recommend short-term interval follow-up CT chest to ensure resolution/exclude underlying malignant potential, done as an outpatient. Status: Acute (12) History of pulmonary embolism: Problem details: On Eliquis Status: Chronic Plan As above Fall Risk Details Young Fall Scale Risk Level: High Fall Risk Current medications: Current Medications Acetaminophen (Acetaminophen 325 Mg Tablet) 650 mg PO Q6H PRN Albuterol/Ipratropium (Iprat-Albut 0.5-2.5 Mg/3 Ml Neb) 1 neb IH Q4H PRN PRN Reason: wheezing Amiodarone HCl (Amiodarone 200 Mg Tablet) 200 mg PO DAILY NJ Last Admin: 06/21/25 10:24 Dose: Not Given Apixaban (Apixaban 5 Mg Tablet) 5 mg PO BID NJ Last Admin: 06/21/25 10:24 Dose: Not Given Dextrose (Dextrose 50 % Syringe) 25 gm IVP Q15M PRN PRN Reason: Hypoglycemia Last Admin: 06/21/25 07:12 Dose: 25 gm Divalproex Sodium (Divalproex Delayed Release 250 Mg Tablet) 2,000 mg PO HS NJ Hydrocortisone Sodium Succinate (Hydrocortisone Sod Succinate 50 Mg/Ml Inj) 100 mg IVP Q8H NJ Last Admin: 06/21/25 13:48 Dose: Not Given Nitroglycerin/Dextrose (Nitroglycerin/Dextrose) 25,000 mcg in 250 mls @ 3 mls/hr IVPB .TITRATE PRN; Protocol PRN Reason: diuresis Last Infusion: 06/21/25 05:30 Dose: Infused Piperacillin Sod/Tazobactam (Sod 3.375 gm/ Sodium Chloride) 100 mls @ 200 mls/hr IVPB Q6H NJ Last Infusion: 06/21/25 10:40 Dose: Infused Vancomycin/PEG/NADA/Lysine/Water (Vancomycin 1.25 Gm/250 Ml) 1.25 gm in 250 mls @ 200 mls/hr IVPB Q24H NJ Norepinephrine/Dextrose (Norepinephrine Infusion) 4,000 mcg in 250 mls @ 36.928 mls/hr IVPB CONT NJ; Protocol Last Titration: 06/21/25 12:23 Dose: 0 mcg/kg/min, 0 mls/hr IV Miscellaneous Supplies (Pharmacist Consult) 1 each MC Q24H NJ; Protocol Insulin Aspart (Insulin Aspart 100 Unit/Ml) 0 unit SUBCUT Q6H NJ; Protocol Last Admin: 06/21/25 07:14 Dose: Not Given Sodium Chloride (Sodium Chloride 0.9 % (Flush) 10 Ml Syringe) 5 ml IVF .FLUSH PRN Last Admin: 06/21/25 12:31 Dose: 5 ml Sodium Chloride (Sodium Chloride 0.9 % (Flush) 10 Ml Syringe) 5 ml IVF BID NJ Last Admin: 06/21/25 10:25 Dose: Not Given Critical Care Bundles Critical care bundles: DVT prophylaxis, antibiotic administration and other Time Spent with Patient Time spent: Total time spent is greater than 50% in coordination of care (as documented) at patient's floor/unit and/or counseling patient: 75 min Time spent: Today I spent 75 minutes seeing the patient, discussing the patient with ER staff, reviewing Expanse and EPIC notes/diagnostics, discussing the care plan with our care time that includes social work, PT/OT, pharmacy, RT, [place] [facility] and documenting my impressions and plan in the medical record. Urinary Catheter Management Urinary Catheter Management Urethral: Cath placed during this visit: no Reason for continuing: ICU pt on diuretics Attending Attestation - Gen Attending Attestation Attestation: examined this patient, reviewed pertinent EHR data, personally reviewed pertinent images, discussed management plan with nursing, discussed management plan with case management and discussed management plan with patient
--- NOTE | 2025-06-21 14:50 | RESP.RT ---
Pt seen this AM. Sleeping on BIPAP. Blood pressures are soft. Reviewed pt's chart. Pt with complex history. Possibly has had home oxygen, and possibly has been diagnosed with ANTHONY. Could not find any indication that she has used CPAP. Removed BIPAP around 1215 with RN for oral cares. Placed on oxymask at 5L, pt comfortable, RR rated even and not labored at 14 per minutes. SPO2 90% Did give some consideration to HFNC, provider wants BIPAP if pt needs support again. Agreed if BP are stable. Bipap will be contraindicated if pt is hypotensive. When pt begins to wean down on oxymask, manager exchange at 3L to NC with end tidal monitoring. BBS with some scattered crackles. Pt with excellent strong dry [employer]US [employer] cough on command. HOB increased to 60 degrees. PT sleeps in recliner, so keep HOB greater than 30 degrees, suspect that this is how she manges her possible ANTHONY.
--- NOTE | 2025-06-21 14:58 | PC.SOCIAL ---
SW received call from patient's assistant case manager Blossom Mars through the [facility] requesting a call back at [phone]. SW called back and left voicemail for Blossom inquiring about who she is a assistant case manager throught, insurance or a specific program at the [facility]. SW called patient's sister and left a voicemail requesting a call back. SEAN called Alyssa at [facility] requesting a call back.
[2025-06-21 15:15] LABS: HCO3 VBG 38 mmol/L (21-28); PO2 VBG 44.8 mmHG (25-47); pH VBG 7.405 (7.32-7.43)
[2025-06-21 15:19] LABS: PCO2 VBG 61 mmHG (40-50)
--- NOTE | 2025-06-21 17:01 | PC.SOCIAL ---
Social work note: Received call back from nurse at [facility] Muriel Alyssa. She shared that pt had come to their facility on May 04, 2025 from [facility]. Alyssa sent a copy of pt's POLST form (previously the copy send from the facility in the initial packet was difficult to read) and her POA for healthcare which was completed on April 20, 2025. [employer] Directive Indicate that if pt is unable to make her own decisions, her POA's for healthcare are Yusra Jameson and Alex Jameson who are both listed on pt's facesheet as her contact people. ceramic worker has shared this information with physician and nurse. Copies of these forms are in the patient's chart.
--- NOTE | 2025-06-21 19:52 | PC.NURSE ---
Nursing Care Hours: [id number] Pt this shift obtunded this morning until afternoon, not responding to lab draw or repositioning. When asked to open eyes pt was unable. Morning meds held. Around noon, pt started opening eyes and responding appropriately to questions. Bipap removed by RT and placed on oxymask, tolerated well. Bipap replaced in afternoon per MD but pt unable to tolerate after 30min and was pulling mask off. Oxymask replaced. Pt reported headache, treated with PO meds per JAN. Pt swallowed water and pills whole without issue. BP frequently checked d/t variable hypotensive pressures. Norepi started and ended within 5 min per BP protocol. Diuresed and BP remained stable. Hart patent. PICC line place, tolerated well. Bilat legs continue to be warm and red with fluid filled blisters. pt afebrile and NSR by end of shift.
[2025-06-21] MEDS: DIVALPROEX DELAYED RELEASE 250 MG TABLET 2000 MG PO (20:35)
[2025-06-21] MEDS: ACETAMINOPHEN 325 MG TABLET 650 MG PO (20:35)
[2025-06-21] MEDS: APIXABAN 5 MG TABLET PO (20:35)
[2025-06-22] VITALS (18 sets, daily range): BP systolic 94–131; BP diastolic 54–94; PULSE 61–123; RESP 14–20; TEMP 36.1–36.7; O2SAT 89–94
[2025-06-22] MEDS: VANCOMYCIN 1.25 GM/250 ML 1.25 GM/250 ML PIGGYBACK IVPB (02:25)
[2025-06-22] MEDS: PIPERACILLIN/TAZOBACTAM 3.375 GM in 0.9 % SODIUM CHLORIDE Mini-bag 100 ML IVPB ×2 (04:05→10:08)
[2025-06-22] MEDS: LEVOTHYROXINE 25 MCG TABLET PO (06:03)
[2025-06-22] MEDS: HYDROCORTISONE SOD SUCCINATE 50 MG/ML inj 100 MG IVP ×3 (06:03→23:57)
[2025-06-22 06:11] LABS: Hematocrit 31.0 % (33.0-51.0); Hemoglobin* 9.2 gm/dL (12.0-16.0); Mean Corpuscular HGB Conc 30 gm/dL (32-36); Mean Corpuscular Hemoglobin 29 pg (26-34); Mean Corpuscular Volume 97 fL (80-100); Red Blood Count 3.20 m/uL (4.00-5.20); White Blood Count* 5.22 K/uL (4.50-11.00)
[2025-06-22 06:13] LABS: Slide Review Reflex No
[2025-06-22 06:24] LABS: Albumin* 3.2 g/dL (3.3-5.0); Chloride* 99 mmol/L (96-114); Potassium* 3.1 mmol/L (3.6-5.1); Sodium* 142 mmol/L (135-149)
[2025-06-22 06:26] LABS: Alanine Aminotransferase* 440 U/L (4-35); Anion Gap 3 mEq/L (7-15); Aspartate Amino Transferase* 612 U/L (12-35); Bilirubin Total* 0.5 mg/dL (0.1-1.5); Blood Urea Nitrogen* 25 mg/dL (7-30); Carbon Dioxide* 40 mmol/L (20-32); Creatinine* 1.0 mg/dL (0.5-1.5); Est. Creatinine Clearance* 52.36; Estimated Glomerular Filt Rate 61 ml/min; Total Protein* 6.3 g/dL (6.0-8.3)
[2025-06-22 06:27] LABS: Alkaline Phosphatase* 66 U/L (40-150); Calcium* 8.4 mg/dL (8.4-10.6); Glucose* 145 mg/dL (60-115)
[2025-06-22] MEDS: FUROSEMIDE 10 MG/ML inj 40 MG IVP ×2 (06:41→20:10)
--- NOTE | 2025-06-22 07:11 | PC.NURSE ---
Pt alert to self. Pt was pleasant and cooperative was awake upon start of shift and was talking appropriately to staff. Pt had complaints of pain ranging 0-5; see EMAR for intervention. Pt slept most of the night and was easily arousable with cares. Pt has a liao catheter in place. Pt maintained saturations mid 80?s-low 90?s on 6 Liters via oxymask. Pt had no complaints of SOB or appeared to have labored work of breathing. Pt?s BLE red, warm and skin is ?tight?. ?Pt has dressing on Left foot C/D/I. Pt took medications whole with no issues. PIIC in place RUE. Pt?s BP?s were soft throughout the shift and became better as the shift progressed see EHR. Pt was weighed by junior copywriter at 2030 215.4lbs; when morning weight taken at 0600 ?weight was 222.0lb. Pt had 800cc for UO. [facility] Hospitalist called. called back and instructed Pt?s BLE edema has not worsened, nor have lung sounds. Pt?s telemetry showed NSR. At around 0645 Pt appeared to be in afib in low 100?s, EKG done see EHR.?
[2025-06-22] MEDS: AMIODARONE 200 MG TABLET PO (07:21)
[2025-06-22] MEDS: POTASSIUM BICARB 25 MEQ EFFERVESCENT TAB 50 MEQ PO (08:12)
[2025-06-22] MEDS: METOPROLOL TARTRATE 25 MG TABLET PO (08:13)
[2025-06-22] MEDS: APIXABAN 5 MG TABLET PO ×2 (08:14→20:09)
[2025-06-22] MEDS: SERTRALINE 50 MG TABLET 25 MG PO (08:14)
[2025-06-22] MEDS: SODIUM CHLORIDE 0.9 % (FLUSH) 10 ML SYRINGE 5 ML IVF ×3 (08:14→20:10)
[2025-06-22] MEDS: IPRAT-ALBUT 0.5-2.5 MG/3 ML NEB 1 NEB IH ×2 (10:05→18:06)
[2025-06-22] MEDS: INSULIN ASPART 100 UNIT/ML SUBCUT ×2 (12:41→18:10)
[2025-06-22] MEDS: METOPROLOL TARTRATE 25 MG TABLET 12.5 MG PO (12:46)
--- NOTE | 2025-06-22 13:27 | P.IMPN_ITS ---
Assessment and Plan Assessment and plan (1) Acute on chronic respiratory failure with hypoxia and hypercapnia: Problem comment: -likely secondary to exacerbation of her heart failure. -CT chest showed pulmonary edema and Small right pleural effusion. In addition to a picture of multifocal nodules versus consolidations so white spectrum IV antibiotics were started (vanc plus Zosyn). - MRSA screen ordered, if it comes back negative will deescalate antibiotics. -patient required BiPAP for a few hours since admission. -initial blood gas showed pH of 7.384, PCO2 65, pO2 less than 30. -monitor VBG. -06/22: Improved today. Patient is alert and awake and answering questions appropriately. Currently on oxygen nasal cannula. -DC vanc and Zosyn as patient does not show any signs or symptoms of pneumonia. Status: Acute (2) Shock, cardiogenic: Problem comment: -likely secondary to exacerbation of heart failure -patient requiring norepinephrine drip at a low dose to keep her mean arterial pressure more than 65 mmHg -patient will likely need norepinephrine intermittently to be able to diurese her. -ordered PICC line placement -echo showing grade 2 LV diastolic dysfunction, [id number] tricuspid regurg, inferior vena cava dilation, dilated ascending aorta diameter of 4.1 cm (this is the upper limit for her age). Ejection fraction preserved at 60-65%. -status post Lasix IV 60 mg total yesterday night. -will start her on Lasix IV 40 b.i.d., need to be given after checking her blood pressure. -06/22: Patient did not need any pressors overnight and today. Status: Resolved (3) Atrial fibrillation with RVR: Problem comment: -patient has chronic history of atrial fibrillation -she is on amiodarone and metoprolol at home. -holding amiodarone because of elevated liver enzymes more than 10 times the normal levels. -will double her metoprolol tartrate does from 25 mg b.i.d. to 50 mg b.i.d. -monitor for low blood pressure. Status: Acute (4) Acute exacerbation of chronic heart failure: Problem comment: As above cont with cardiac monitoring, strict ins and outs. Continue Lasix IV 40 mg b.i.d., check blood pressure before giving it. Status: Acute (5) Chronic adrenal insufficiency: Problem comment: -chronic adrenal insufficiency secondary to chronic use of steroids for COPD. -Started critical illness prophylaxis dose of hydrocortisone IV 100 mg q.8 hours Status: Acute (6) Elevated liver transaminase level: Problem comment: AST about 640, ALT about 300 Likely secondary to severe hypotension Will monitor. 06/22: Liver enzymes are still elevated but stable. -hold amiodarone, divalproex. Status: Acute (7) Chronic diastolic heart failure: Problem comment: As above Status: Acute (8) History of COPD: Problem comment: Currently patient is being treated with IV antibiotics and IV steroids O2 saturation target 88-92% Use BiPAP as needed Status: Acute (9) Diabetes: Problem comment: Start insulin sliding scale Status: Acute (10) Epilepsy: Problem comment: Resume her home meds Status: Acute (11) Lung nodules: Problem comment: CT : Multifocal bilateral pulmonary nodules/consolidations likely indicative of multifocal infectious/inflammatory process. Recommend short-term interval follow-up CT chest to ensure resolution/exclude underlying malignant potential, done as an outpatient. Status: Acute (12) History of pulmonary embolism: Problem comment: On Eliquis Status: Chronic Total Time Spent Total Time Spent: Today I spent 60 minutes seeing the patient, reviewing Expanse and EPIC notes/diagnostics, discussing the care plan with our care time that includes social work, PT/OT, pharmacy, RT, fci and documenting my impressions and plan in the medical record. Subjective Date Seen: 06/22/25 Interval history: Patient was seen and examined at bedside today. She has improved immensely today, she is fully awake and alert and answering questions appropriately. Started soft diet. Currently on oxygen nasal cannula. She did not need your epinephrine or BiPAP overnight and today. Exam Narrative: Exam Narrative: Physical exam GENERAL: No acute distress. On oxygen 6 liters/minute nasal cannula. HEAD AND NECK: Atraumatic, normocephalic CARDIOVASCULAR: RRR. Normal S1, S2. No murmurs. RESPIRATORY: Good air entry B/L. +ve crackles, On oxygen 6 liters/minute nasal cannula. GASTROINTESTINAL: Not distended, not tender to palpation. NEUROLOGY: Alert, awake. Normal speech. Answering questions appropriately. PSYCH: Normal mood, normal affect. Const: Vital Signs, click to edit/add: Vital Signs - 24 hr 06/21/25 13:30 06/21/25 14:00 06/21/25 14:30 Temperature Pulse Rate Pulse Rate [Left P ulse Oximeter] 54 L 60 Respiratory Rate 15 Blood Pressure [Le ft Arm] 98/57 L 101/54 L 102/52 L Pulse Oximetry 87 L 93 Oxygen Delivery Me thod OxyMask OxyMask Oxygen Flow Rate 6 6 Fraction of Inspir ed Oxygen 06/21/25 14:48 06/21/25 15:00 06/21/25 15:00 Temperature Pulse Rate Pulse Rate [Left P ulse Oximeter] 65 60 Respiratory Rate 11 L Blood Pressure [Le ft Arm] 95/51 L Pulse Oximetry 88 Oxygen Delivery Me thod Oxygen Flow Rate Fraction of Inspir ed Oxygen 50 06/21/25 15:30 06/21/25 16:00 06/21/25 16:00 Temperature Pulse Rate 63 Pulse Rate [Left P ulse Oximeter] 60 63 Respiratory Rate Blood Pressure [Le ft Arm] 93/67 104/58 L Pulse Oximetry 88 90 Oxygen Delivery Me thod OxyMask OxyMask Oxygen Flow Rate 6 6 Fraction of Inspir ed Oxygen 06/21/25 16:30 06/21/25 17:00 06/21/25 17:30 Temperature 98.5 F Pulse Rate Pulse Rate [Left P ulse Oximeter] 65 64 66 Respiratory Rate 13 Blood Pressure [Le ft Arm] 97/49 L 104/57 L 58/34 L Pulse Oximetry 93 90 88 Oxygen Delivery Me thod BiPAP BiPAP OxyMask Oxygen Flow Rate 6 Fraction of Inspir ed Oxygen 45 45 06/21/25 17:31 06/21/25 17:35 06/21/25 17:40 Temperature Pulse Rate Pulse Rate [Left P ulse Oximeter] 66 66 65 Respiratory Rate 12 12 Blood Pressure [Le ft Arm] 101/56 L 101/57 L 96/52 L Pulse Oximetry 88 88 88 Oxygen Delivery Me thod OxyMask OxyMask OxyMask Oxygen Flow Rate 6 6 6 Fraction of Inspir ed Oxygen 06/21/25 17:45 06/21/25 17:55 06/21/25 18:00 Temperature Pulse Rate Pulse Rate [Left P ulse Oximeter] 66 Respiratory Rate 12 Blood Pressure [Le ft Arm] 102/56 L 106/58 L 107/58 L Pulse Oximetry 89 Oxygen Delivery Me thod OxyMask Oxygen Flow Rate 6 Fraction of Inspir ed Oxygen 06/21/25 18:30 06/21/25 19:00 06/21/25 19:30 Temperature Pulse Rate 66 Pulse Rate [Left P ulse Oximeter] Respiratory Rate 12 Blood Pressure [Le ft Arm] 106/57 L Pulse Oximetry Oxygen Delivery Me thod Oxygen Flow Rate Fraction of Inspir ed Oxygen 06/21/25 19:34 06/21/25 20:41 06/21/25 21:04 Temperature 97.8 F 97.7 F Pulse Rate Pulse Rate [Left P ulse Oximeter] 66 66 Respiratory Rate 12 20 Blood Pressure [Le ft Arm] 105/54 L 80/62 L 101/50 L Pulse Oximetry 93 92 Oxygen Delivery Me thod OxyMask OxyMask Oxygen Flow Rate 6 6 Fraction of Inspir ed Oxygen 06/21/25 22:03 06/21/25 22:58 06/21/25 23:00 Temperature Pulse Rate 63 Pulse Rate [Left P ulse Oximeter] Respiratory Rate 14 Blood Pressure [Le ft Arm] 101/51 L Pulse Oximetry Oxygen Delivery Me thod Oxygen Flow Rate Fraction of Inspir ed Oxygen 06/21/25 23:12 06/22/25 01:00 06/22/25 03:00 Temperature 97.9 F 97.9 F Pulse Rate 62 Pulse Rate [Left P ulse Oximeter] 64 61 Respiratory Rate 14 16 Blood Pressure [Le ft Arm] 99/54 L 101/55 L Pulse Oximetry 89 89 Oxygen Delivery Me thod OxyMask OxyMask Oxygen Flow Rate 6 6 Fraction of Inspir ed Oxygen 06/22/25 03:00 06/22/25 03:20 06/22/25 05:00 Temperature 97.7 F 97.2 F L Pulse Rate Pulse Rate [Left P ulse Oximeter] 62 63 Respiratory Rate 14 14 18 Blood Pressure [Le ft Arm] 109/54 L 118/64 Pulse Oximetry 89 90 Oxygen Delivery Me thod OxyMask OxyMask Oxygen Flow Rate 6 6 Fraction of Inspir ed Oxygen 06/22/25 06:10 06/22/25 07:00 06/22/25 09:00 Temperature 98.0 F 97.5 F L Pulse Rate Pulse Rate [Left P ulse Oximeter] 62 123 H 104 H Respiratory Rate 20 20 Blood Pressure [Le ft Arm] 120/71 128/82 109/81 Pulse Oximetry 89 92 94 Oxygen Delivery Me thod OxyMask OxyMask OxyMask Oxygen Flow Rate 6 6 6 Fraction of Inspir ed Oxygen 06/22/25 09:56 06/22/25 09:59 06/22/25 10:28 Temperature Pulse Rate Pulse Rate [Left P ulse Oximeter] 107 H Respiratory Rate 20 Blood Pressure [Le ft Arm] 104/94 H Pulse Oximetry 91 91 Oxygen Delivery Me thod [place] Nasal Ca nnula [place] Nasal Ca nnula Oxygen Flow Rate 5 6 Fraction of Inspir ed Oxygen 06/22/25 12:30 Temperature Pulse Rate Pulse Rate [Left P ulse Oximeter] 113 H Respiratory Rate 20 Blood Pressure [Le ft Arm] 105/55 L Pulse Oximetry 94 Oxygen Delivery Me thod [place] Nasal Ca nnula Oxygen Flow Rate 6 Fraction of Inspir ed Oxygen Labs Labs: Laboratory Results - last 24 hr 06/21/25 06/22/25 14:30 05:50 WBC 5.22 RBC 3.20 L Hgb 9.2 L Hct 31.0 L MCV 97 MCH 29 MCHC 30 L Plt Count 205 VBG pH 7.405 VBG pCO2 61 H* VBG pO2 44.8 VBG HCO3 38 H Sodium 142 Potassium 3.1 L Chloride 99 Carbon Dioxide 40 H Anion Gap 3 L BUN 25 Creatinine 1.0 Estimated Creat Clear 52.36 Estimated GFR 61 Glucose 145 H Calcium 8.4 Total Bilirubin 0.5 AST 612 H ALT 440 H Alkaline Phosphatase 66 Total Protein 6.3 Albumin 3.2 L
--- NOTE | 2025-06-22 14:31 | PC.NURSE ---
End of Shift Note: Patient has done fairly well today. Her heart rate was up a little this am but after medication has come down some what. Did have a large output of urine after lasix also see intake and output. She was also assist to the chair to sit up for a while to help with her respiratory sats. Have been able to wean her oxygen down to 4L also and she continues to sat in the low 90's. Will continue to monitor until able to give report to next shift.
--- NOTE | 2025-06-22 14:50 | RESP.RT ---
Respiratory Therapy Progress Note: The patient was evaluated by Respiratory Therapy today. They were successfully weaned from an Oxymask to a nasal cannula reservoir device. Cognitive function continues to improve. The patient is now able to sit up in a chair, which is expected to enhance pulmonary mechanics. Diuresis is ongoing, with nursing reporting a urine output of 2.4 liters this afternoon. This correlates with improved oxygen saturation and a decreased supplemental oxygen. Respiratory therapy will continue to follow while in hospital.
--- NOTE | 2025-06-22 19:17 | PC.NURSE ---
End of shift-- Pt has been pleasant and cooperative. Alert and oriented. VSS and pt is afebrile. SPO2 maintained >90% on 4L per reservoir n.c. but drops as low as 72% when pt removes O2 which she does frequently. She c/o pain everywhere which she rated 10 out of 10 and was given Oxycodone with apparent relief. LS coarse and diminished with faint expiratory wheezing noted. She stated a dry cough, but none was noted. She denied nausea and ate 100% of a minced/moist diet with set up only. She had 1x liquid partially incontinent BM this evening. Telemetry shows afib with NVR. Hart is patent and drained 250ml of straw colored urine. Bilateral LE are reddened and tender and a new open area was noted on back of right lira that was covered with a Mepilex. Pt was up to the commode and back to bed with assist of 2, belt and walker and tolerated it fair. Pt struggled to follow directions. Report to RIKI Quevedo.
[2025-06-22] MEDS: METOPROLOL TARTRATE 25 MG TABLET 50 MG PO (20:08)
[2025-06-22] MEDS: MELATONIN 3 MG TABLET 6 MG PO (20:09)
[2025-06-23] VITALS (7 sets, daily range): BP systolic 104–140; BP diastolic 70–97; PULSE 75–99; RESP 16–18; TEMP 36.2–36.5; O2SAT 89–91
[2025-06-23] MEDS: INSULIN ASPART 100 UNIT/ML SUBCUT ×4 (00:02→17:17)
[2025-06-23] MEDS: HYDROCORTISONE SOD SUCCINATE 50 MG/ML inj 100 MG IVP ×3 (06:23→22:32)
[2025-06-23] MEDS: LEVOTHYROXINE 25 MCG TABLET PO (06:23)
[2025-06-23] MEDS: SODIUM CHLORIDE 0.9 % (FLUSH) 10 ML SYRINGE 5 ML IVF ×3 (06:24→20:41)
[2025-06-23 06:56] LABS: Albumin* 3.5 g/dL (3.3-5.0); Chloride* 95 mmol/L (96-114); Potassium* 3.0 mmol/L (3.6-5.1); Sodium* 140 mmol/L (135-149)
[2025-06-23 06:58] LABS: Blood Urea Nitrogen* 30 mg/dL (7-30); Creatinine* 0.9 mg/dL (0.5-1.5); Est. Creatinine Clearance* 52.36; Estimated Glomerular Filt Rate 70 ml/min
[2025-06-23 06:59] LABS: Alanine Aminotransferase* 444 U/L (4-35); Alkaline Phosphatase* 66 U/L (40-150); Aspartate Amino Transferase* 352 U/L (12-35); Bilirubin Total* 0.5 mg/dL (0.1-1.5); Calcium* 9.0 mg/dL (8.4-10.6); Glucose* 194 mg/dL (60-115); Total Protein* 6.8 g/dL (6.0-8.3)
[2025-06-23 07:05] LABS: Anion Gap 9 mEq/L (7-15); Carbon Dioxide* 36 mmol/L (20-32)
--- NOTE | 2025-06-23 07:06 | PC.NURSE ---
Shift note: Patient has been on 4L of oxygen through NC for most part of the shift until 0200. This was changed to OxyMask due to inability to keep it in place, especially when sleeping. She is doing well this morning wit 3L through NC. Had 2x BM tonight. Hart working well. No pain reported except headache which was controlled with Tylenol. Vitally stable.
[2025-06-23] MEDS: SERTRALINE 50 MG TABLET 25 MG PO (09:26)
[2025-06-23] MEDS: FUROSEMIDE 10 MG/ML inj 40 MG IVP ×2 (09:26→20:40)
[2025-06-23] MEDS: APIXABAN 5 MG TABLET PO ×2 (09:26→20:40)
[2025-06-23] MEDS: METOPROLOL TARTRATE 25 MG TABLET 50 MG PO ×2 (09:27→20:40)
--- NOTE | 2025-06-23 09:38 | RESP.RT ---
Patient is currently eating breakfast on 2L NC SATing 94%. Patient states that she does not wear CPAP, but she routinely desaturates at night. We will continue to wean O2 as fluid comes off and we will assess the patient's need for supplemental O2 and would recommend sleep study upon discharge.
[2025-06-23] MEDS: POTASSIUM CHLORIDE 10 MEQ CAPSULE ER 60 MEQ PO (10:39)
--- NOTE | 2025-06-23 12:43 | PC.SOCIAL ---
Addendum entered by FRANKO Genao 06/23/25 15:45: Discharge planning: settlement worker also left a message for [facility] asking if they needed new home care orders sent when the pt discharges from the hospital. Social work to follow-up as needed. Addendum entered by FRANKO Genao 06/23/25 14:51: Discharge planning: settlement worker spoke with Alyssa from [facility] again this afternoon and she states that after reviewing all of the pt's notes, it appears she is close to or almost back to her baseline and will be able to return back to [facility] with home oxygen via nasal cannula, if ordered. Social work to follow-up as needed. Original Note: Discharge planning: settlement worker completed the following pt baseline assessment with Alyssa Muse RN from [facility] where the pt lives: 1. How does patient transfer/ambulate? Pt is wheelchair bound. Can do her own pivot transfers with staff supervision and cues(when she is not weak). Pt can pivot in the bathroom from toilet to wheelchair if there are grab bars(when she is not weak). 2. Who administers patient?s medication? [facility]. -Pharmacy providing medications? [facility] in [place]. 3. Does patient use oxygen?? She had not been at [facility], but was sent with some supplies when she moved to [facility] in April of 2025 from [facility]. 4. Patient?s diet at facility? Regular. ??? - Does patient need assistance with eating? No, and [facility] cannot accommodate special diets. 5. What assistance does the facility staff provide to patient? Med administration, dressing assist, showering assist, toileting assist, assistance with all ADL's, meals, pendant. 6. Does patient have any behaviors hospital staff need to be aware of? No agitation. Can get quite anxious. She is pleasant, but will sometimes make up stories to get reactions out of people. 7. Any cognitive impairments? Mental Status? She does live in Memory Care at [facility]. She is pretty oriented. 8. Any additional information to help hospital staff successfully care for patient? No. 9. Does patient have a health care directive, POLST, or guardian? Sister is Yusra GRAHAM, #[phone]. 10. Are there any outside providers involved in patient?s care (PT, Home Care, Hospice)? [facility]; PT/OT/Lymphedema wrapping. Employment Adjudicator listed in previous social work note from 06/21/25. 11. Is patient?s bed held? Yes, technically since she lives at an [facility]. ? - Can patient return to the facility (including a weekend return)? It would have to be M-F during the day. No weekend returns due to staffing. 12. How does patient normally transport? Medical wheelchair transportation is needed. 13. Primary contacts name and phone number for care facility: Alyssa Muse RN #[phone](direct); facility main number #[phone]. settlement worker also secure emailed Alyssa progress notes on the pt from this hospital stay to [email or web address]. Social work to follow-up as needed.
[2025-06-23 13:19] LABS: Hematocrit 34.8 % (33.0-51.0); Hemoglobin* 10.3 gm/dL (12.0-16.0); Mean Corpuscular HGB Conc 30 gm/dL (32-36); Mean Corpuscular Hemoglobin 29 pg (26-34); Mean Corpuscular Volume 97 fL (80-100); Red Blood Count 3.59 m/uL (4.00-5.20); White Blood Count* 6.89 K/uL (4.50-11.00)
[2025-06-23 13:22] LABS: Slide Review Reflex No
[2025-06-23 14:13] LABS: Hep B Surface Antigen Negative (Negative); Hep C Ab by CIA Interp Negative (Negative)
--- NOTE | 2025-06-23 14:20 | P.IMPN_ITS ---
Assessment and Plan Assessment and plan (1) Acute on chronic respiratory failure with hypoxia and hypercapnia: Problem comment: -likely secondary to exacerbation of her heart failure. -CT chest showed pulmonary edema and Small right pleural effusion. In addition to a picture of multifocal nodules versus consolidations so white spectrum IV antibiotics were started (vanc plus Zosyn). - MRSA screen ordered, if it comes back negative will deescalate antibiotics. -patient required BiPAP for a few hours since admission. -initial blood gas showed pH of 7.384, PCO2 65, pO2 less than 30. -monitor VBG. -06/22: Improved today. Patient is alert and awake and answering questions appropriately. Currently on oxygen nasal cannula. -DC vanc and Zosyn as patient does not show any signs or symptoms of pneumonia. -06/23: Will continue diuresis, currently on 3 liters/minute nasal cannula Status: Acute (2) Shock, cardiogenic: Problem comment: -likely secondary to exacerbation of heart failure -patient requiring norepinephrine drip at a low dose to keep her mean arterial pressure more than 65 mmHg -patient will likely need norepinephrine intermittently to be able to diurese her. -ordered PICC line placement -echo showing grade 2 LV diastolic dysfunction, [id number] tricuspid regurg, inferior vena cava dilation, dilated ascending aorta diameter of 4.1 cm (this is the upper limit for her age). Ejection fraction preserved at 60-65%. -status post Lasix IV 60 mg total yesterday night. -will start her on Lasix IV 40 b.i.d., need to be given after checking her blood pressure. -06/22: Patient did not need any pressors overnight and today. Status: Resolved (3) Atrial fibrillation with RVR: Problem comment: -patient has chronic history of atrial fibrillation -she is on amiodarone and metoprolol at home. -holding amiodarone because of elevated liver enzymes more than 10 times the normal levels. -will double her metoprolol tartrate does from 25 mg b.i.d. to 50 mg b.i.d. -monitor for low blood pressure. Status: Acute (4) Acute exacerbation of chronic heart failure: Problem comment: As above cont with cardiac monitoring, strict ins and outs. Continue Lasix IV 40 mg b.i.d., check blood pressure before giving it. Status: Acute (5) Chronic adrenal insufficiency: Problem comment: -chronic adrenal insufficiency secondary to chronic use of steroids for COPD. -Started critical illness prophylaxis dose of hydrocortisone IV 100 mg q.8 hours Status: Acute (6) Elevated liver transaminase level: Problem comment: AST about 640, ALT about 300 Likely secondary to severe hypotension Will monitor. 06/22: Liver enzymes are still elevated but stable. -hold amiodarone, divalproex. Status: Acute (7) Chronic diastolic heart failure: Problem comment: As above Status: Acute (8) History of COPD: Problem comment: Currently patient is being treated with IV antibiotics and IV steroids O2 saturation target 88-92% Use BiPAP as needed Status: Acute (9) Diabetes: Problem comment: Start insulin sliding scale Status: Acute (10) Epilepsy: Problem comment: Resume her home meds Status: Acute (11) Lung nodules: Problem comment: CT : Multifocal bilateral pulmonary nodules/consolidations likely indicative of multifocal infectious/inflammatory process. Recommend short-term interval follow-up CT chest to ensure resolution/exclude underlying malignant potential, done as an outpatient. Status: Acute (12) History of pulmonary embolism: Problem comment: On Eliquis Status: Chronic Total Time Spent Total Time Spent: Today I spent 50 minutes seeing the patient, reviewing Expanse and EPIC notes/diagnostics, discussing the care plan with our care time that includes social work, PT/OT, pharmacy, RT, residential and documenting my impressions and plan in the medical record. Subjective Date Seen: 06/23/25 Interval history: Patient was seen and examined at bedside today. Patient states that she is doing much better today. Started soft diet. Currently on oxygen nasal cannula 3 l/m Exam Narrative: Exam Narrative: Physical exam GENERAL: Comfortable, no acute distress. On oxygen nasal cannula 3 liters/minute HEAD AND NECK: Atraumatic, normocephalic CARDIOVASCULAR: RRR. Normal S1, S2. No murmurs. RESPIRATORY: Clear to auscultation B/L. Good air entry B/L. +ve crackles GASTROINTESTINAL: Not distended, not tender to palpation. NEUROLOGY: Alert, awake, oriented X 3. Normal speech. No focal weakness. PSYCH: Normal mood, normal affect. Const: Vital Signs, click to edit/add: Vital Signs - 24 hr 06/22/25 15:00 06/22/25 15:00 06/22/25 16:00 Temperature Pulse Rate 82 Pulse Rate [Left P ulse Oximeter] 99 99 Respiratory Rate 18 18 Blood Pressure [Le ft Arm] 131/82 Pulse Oximetry 91 Oxygen Delivery Me thod Room Air Oxygen Flow Rate Fraction of Inspir ed Oxygen 06/22/25 20:00 06/22/25 22:52 06/22/25 22:54 Temperature 97.5 F L 97 F L Pulse Rate Pulse Rate [Left P ulse Oximeter] 100 100 100 Respiratory Rate 18 18 18 Blood Pressure [Le ft Arm] 102/68 94/83 Pulse Oximetry 92 89 Oxygen Delivery Me thod Nasal Cannula OxyMask Oxygen Flow Rate 4 4 Fraction of Inspir ed Oxygen 45 45 06/22/25 23:00 06/23/25 02:34 06/23/25 07:00 Temperature 97.6 F Pulse Rate 91 Pulse Rate [Left P ulse Oximeter] 93 91 Respiratory Rate 18 18 Blood Pressure [Le ft Arm] 115/80 Pulse Oximetry 89 Oxygen Delivery Me thod OxyMask Oxygen Flow Rate 4 Fraction of Inspir ed Oxygen 45 06/23/25 07:00 06/23/25 07:00 06/23/25 11:00 Temperature 97.7 F 97.6 F Pulse Rate 83 Pulse Rate [Left P ulse Oximeter] 90 89 Respiratory Rate 18 18 Blood Pressure [Le ft Arm] 126/83 131/90 H Pulse Oximetry 91 90 Oxygen Delivery Me thod Nasal Cannula OxyM ask Nasal Cannula OxyM ask Oxygen Flow Rate 4 2 Fraction of Inspir ed Oxygen Labs Labs: Laboratory Results - last 24 hr 06/21/25 06/23/25 08:22 06:05 WBC 6.89 RBC 3.59 L Hgb 10.3 L Hct 34.8 MCV 97 MCH 29 MCHC 30 L Plt Count 237 Sodium 140 Potassium 3.0 L Chloride 95 L Carbon Dioxide 36 H Anion Gap 9 BUN 30 Creatinine 0.9 Estimated Creat Clear 52.36 Estimated GFR 70 Glucose 194 H Calcium 9.0 Phosphorus 2.6 Magnesium 2.2 Total Bilirubin 0.5 AST 352 H ALT 444 H Alkaline Phosphatase 66 Total Protein 6.8 Albumin 3.5 Hepatitis A IgM Ab Negative Hep Bs Antigen Negative Hep B Core IgM Ab Negative Hep C Ab Index (MARTHA) 0.03 Hep C Ab Interp MARTHA Negative Hepatitis Interpret See Note
--- NOTE | 2025-06-23 18:47 | PC.NURSE ---
End of shift: patient's VSS. on 2 L NC, up to chair for meals and ambulates 1 assist walker/GB to BR. patient rates pain 5/10 PRN oxy administered w/relief. PICC on right upper arm is patent and SL. Patient's liao patent and draining. Speech recommends moist and minced diet until dentures arrive. thin liquids OK. Patient afebrile this shift. Sliding scale used for Blood sugars. see eMAR.
[2025-06-23] MEDS: MELATONIN 3 MG TABLET 6 MG PO (20:40)
[2025-06-24] VITALS (8 sets, daily range): BP systolic 99–134; BP diastolic 69–103; PULSE 73–96; RESP 16–20; TEMP 36.4–36.9; O2SAT 88–91
[2025-06-24] MEDS: INSULIN ASPART 100 UNIT/ML SUBCUT ×3 (00:18→18:26)
[2025-06-24 03:32] LABS: Valproic Acid, Free 31 ug/mL (7-23); Valproic Acid, Percent Free 34 % (5-18); Valproic Acid, Total 90 ug/mL (50-125)
--- NOTE | 2025-06-24 04:31 | PC.NURSE ---
Shift note: Patient is doing well With A1, walker and GB to and from BR and recliner. She struggled initially to fall asleep but finally did after 2300. Patient has been 2L of oxygen through NC. O2 has been between 89 and 91%. Bed bath given at 2100. No fever recorded. She continue to have baseline forgetfulness and difficulty finding words. Vitally stable.
[2025-06-24] MEDS: HYDROCORTISONE SOD SUCCINATE 50 MG/ML inj 100 MG IVP (05:46)
[2025-06-24] MEDS: LEVOTHYROXINE 25 MCG TABLET PO (05:46)
[2025-06-24 06:16] LABS: Hematocrit 36.1 % (33.0-51.0); Hemoglobin* 10.8 gm/dL (12.0-16.0); Mean Corpuscular HGB Conc 30 gm/dL (32-36); Mean Corpuscular Hemoglobin 29 pg (26-34); Mean Corpuscular Volume 96 fL (80-100); Red Blood Count 3.77 m/uL (4.00-5.20); White Blood Count* 6.24 K/uL (4.50-11.00)
[2025-06-24 06:17] LABS: Slide Review Reflex No
[2025-06-24 06:41] LABS: Albumin* 3.5 g/dL (3.3-5.0); Chloride* 95 mmol/L (96-114); Sodium* 141 mmol/L (135-149)
[2025-06-24 06:44] LABS: Alanine Aminotransferase* 311 U/L (4-35); Alkaline Phosphatase* 74 U/L (40-150); Aspartate Amino Transferase* 133 U/L (12-35); Bilirubin Total* 0.6 mg/dL (0.1-1.5); Blood Urea Nitrogen* 29 mg/dL (7-30); Calcium* 9.3 mg/dL (8.4-10.6); Creatinine* 0.9 mg/dL (0.5-1.5); Est. Creatinine Clearance* 52.36; Estimated Glomerular Filt Rate 70 ml/min; Glucose* 188 mg/dL (60-115); Total Protein* 6.7 g/dL (6.0-8.3)
[2025-06-24 06:51] LABS: Anion Gap 6 mEq/L (7-15); Carbon Dioxide* 40 mmol/L (20-32)
[2025-06-24 06:56] LABS: Potassium* 2.6 mmol/L (3.6-5.1)
[2025-06-24] MEDS: POTASSIUM CHLORIDE 10 MEQ CAPSULE ER 60 MEQ PO (09:01)
[2025-06-24] MEDS: METOPROLOL TARTRATE 25 MG TABLET 50 MG PO ×2 (09:01→21:36)
[2025-06-24] MEDS: SERTRALINE 50 MG TABLET 25 MG PO (09:02)
[2025-06-24] MEDS: APIXABAN 5 MG TABLET PO ×2 (09:02→21:37)
--- NOTE | 2025-06-24 09:07 | CRLHL7_ITS ---
For Patients: As a result of the Century Cures Act, medical imaging exams and procedure reports are released immediately into your electronic medical record. You may view this report before your referring provider. If you have questions, please contact your health care provider. Indication: Chest pain Technique: Chest 1 view Comparison: Chest x-ray 06/21/2025 Findings/Impression: Cardiovascular and mediastinum: Mild cardiomegaly. Right-sided PICC line extends to at least the proximal superior vena cava although the tip is not well delineated on this exam. Lungs and pleural space: No pleural effusion or pneumothorax. Slight reticular interstitial prominence although improved compared to the study of 3 days prior. Bones and soft tissues: Status post thoracolumbar junction surgery. Dictated by Jarrett Jones MD @ 06/24/2025 9:40:27 AM (Electronically Signed)
[2025-06-24] MEDS: SODIUM CHLORIDE 0.9 % (FLUSH) 10 ML SYRINGE 5 ML IVF ×2 (09:54→21:37)
[2025-06-24 10:07] LABS: Potassium* 2.9 mmol/L (3.6-5.1)
[2025-06-24] MEDS: ASPIRIN EC 325 MG TABLET PO (10:19)
--- NOTE | 2025-06-24 11:06 | PC.SOCIAL ---
Discharge planning: automotive tire worker informed Alyssa Muse RN at [facility] that the pt will be in the hospital over the weekend and likely ready for discharge on Friday06/27/25 per MD on duty today. Social work to follow-up as needed.
[2025-06-24] MEDS: PANTOPRAZOLE SODIUM 40 MG INJ IVP (12:13)
[2025-06-24] MEDS: POTASSIUM BICARB 25 MEQ EFFERVESCENT TAB PO (12:13)
[2025-06-24 12:29] LABS: Potassium* 3.2 mmol/L (3.6-5.1)
[2025-06-24] MEDS: EMPAGLIFLOZIN 10 MG TABLET PO (14:41)
[2025-06-24] MEDS: POTASSIUM BICARB 25 MEQ EFFERVESCENT TAB 50 MEQ PO ×2 (14:41→16:26)
--- NOTE | 2025-06-24 15:36 | PM.IMPN1 ---
Assessment and Plan Assessment and plan (1) Acute on chronic respiratory failure with hypoxia and hypercapnia: Problem comment: -likely secondary to exacerbation of her heart failure. -CT chest showed pulmonary edema and Small right pleural effusion. In addition to a picture of multifocal nodules versus consolidations so white spectrum IV antibiotics were started (vanc plus Zosyn). - MRSA screen ordered, if it comes back negative will deescalate antibiotics. -patient required BiPAP for a few hours since admission. -initial blood gas showed pH of 7.384, PCO2 65, pO2 less than 30. -monitor VBG. -06/22: Improved today. Patient is alert and awake and answering questions appropriately. Currently on oxygen nasal cannula. -DC vanc and Zosyn as patient does not show any signs or symptoms of pneumonia. -06/23: Will continue diuresis, currently on 3 liters/minute nasal cannula -06/24: Will decrease furosemide frequency to 1 time a day so it will be furosemide 40 IV once a day, will reassess tomorrow and if patient's breathing keeps improving will put her back on her torsemide p.o. Status: Acute (2) Shock, cardiogenic: Problem comment: -likely secondary to exacerbation of heart failure -patient requiring norepinephrine drip at a low dose to keep her mean arterial pressure more than 65 mmHg -patient will likely need norepinephrine intermittently to be able to diurese her. 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 Ejection fraction preserved at 60-65%. -status post Lasix IV 60 mg total yesterday night. -will start her on Lasix IV 40 b.i.d., need to be given after checking her blood pressure. -06/22: Patient did not need any pressors overnight and today. Status: Resolved (3) Atrial fibrillation with RVR: Problem comment: -patient has chronic history of atrial fibrillation -she is on amiodarone and metoprolol at home. -holding amiodarone because of elevated liver enzymes more than 10 times the normal levels. -will double her metoprolol tartrate does from 25 mg b.i.d. to 50 mg b.i.d. -monitor for low blood pressure. Status: Acute (4) Hypokalemia: Problem comment: Likely secondary to aggressive diuresis. we have been replacing K+ every day. Keep monitoring Status: Acute (5) Acute exacerbation of chronic heart failure: Problem comment: As above cont with cardiac monitoring, strict ins and outs. Continue Lasix IV 40 mg b.i.d., check blood pressure before giving it. Status: Acute (6) Chronic adrenal insufficiency: Problem comment: -chronic adrenal insufficiency secondary to chronic use of steroids for COPD. -Started critical illness prophylaxis dose of hydrocortisone IV 100 mg q.8 hours Status: Acute (7) Elevated liver transaminase level: Problem comment: AST about 640, ALT about 300 Likely secondary to severe hypotension Will monitor. 06/22: Liver enzymes are still elevated but stable. -hold amiodarone, divalproex. Status: Acute (8) Chronic diastolic heart failure: Problem comment: As above Status: Acute (9) History of COPD: Problem comment: Currently patient is being treated with IV antibiotics and IV steroids O2 saturation target 88-92% Use BiPAP as needed Status: Acute (10) Diabetes: Problem comment: Start insulin sliding scale Status: Acute (11) Epilepsy: Problem comment: Resume her home meds Status: Acute (12) Lung nodules: Problem comment: CT : Multifocal bilateral pulmonary nodules/consolidations likely indicative of multifocal infectious/inflammatory process. Recommend short-term interval follow-up CT chest to ensure resolution/exclude underlying malignant potential, done as an outpatient. Status: Acute (13) History of pulmonary embolism: Problem comment: On Eliquis Status: Chronic Total Time Spent Total Time Spent: Today I spent 50 minutes seeing the patient, reviewing Expanse and EPIC notes/diagnostics, discussing the care plan with our care time that includes social work, PT/OT, pharmacy, RT, intermediate and documenting my impressions and plan in the medical record. Subjective Date Seen: 06/24/25 Interval history: Patient was seen and examined at bedside today. Patient states that she started to have chest discomfort early this morning, but not short of breath she is currently on oxygen nasal cannula 3 l/m' I ordered an EKG that showed T-wave inversion in V3 and V4 leads in addition to ST depression in the chest leads. Troponin was negative twice. She received aspirin 325 mg once. Patient's chest pain resolved after giving her IV pantoprazole. Exam Narrative: Exam Narrative: Physical exam GENERAL: Comfortable, no acute distress. HEAD AND NECK: Atraumatic, normocephalic CARDIOVASCULAR: RRR. Normal S1, S2. RESPIRATORY: Clear to auscultation B/L. Good air entry B/L. On 3 liters/minute oxygen nasal cannula. GASTROINTESTINAL: Not distended, not tender to palpation. NEUROLOGY: Alert, awake. Normal speech. PSYCH: Normal mood, normal affect. Const: Vital Signs, click to edit/add: Vital Signs - 24 hr 06/23/25 19:00 06/23/25 22:28 06/23/25 22:28 Temperature 97.2 F L 97.2 F L Pulse Rate Pulse Rate [Left P ulse Oximeter] 99 91 91 Respiratory Rate 16 16 16 Blood Pressure [Le ft Arm] 104/70 114/80 Pulse Oximetry 91 89 Oxygen Delivery Me thod Nasal Cannula Nasal Cannula Oxygen Flow Rate 2 2 Fraction of Inspir ed Oxygen 45 45 06/23/25 23:00 06/24/25 03:00 06/24/25 07:00 Temperature 97.5 F L Pulse Rate 75 82 Pulse Rate [Left P ulse Oximeter] 73 Respiratory Rate 16 Blood Pressure [Le ft Arm] 131/97 H Pulse Oximetry 89 Oxygen Delivery Me thod Nasal Cannula Oxygen Flow Rate 2 Fraction of Inspir ed Oxygen 45 06/24/25 07:45 06/24/25 08:15 06/24/25 12:26 Temperature 97.7 F 97.7 F Pulse Rate Pulse Rate [Left P ulse Oximeter] 87 87 85 Respiratory Rate 18 18 18 Blood Pressure [Le ft Arm] 134/103 H 119/86 Pulse Oximetry 91 91 Oxygen Delivery Me thod Nasal Cannula Nasal Cannula Oxygen Flow Rate 3 2 Fraction of Inspir ed Oxygen 06/24/25 15:00 06/24/25 15:00 06/24/25 15:00 Temperature 98.0 F Pulse Rate 78 Pulse Rate [Left P ulse Oximeter] 88 88 Respiratory Rate 18 18 Blood Pressure [Le ft Arm] 112/86 Pulse Oximetry 90 Oxygen Delivery Me thod Nasal Cannula Oxygen Flow Rate 2 Fraction of Inspir ed Oxygen Labs Labs: Laboratory Results - last 24 hr 06/20/25 06/24/25 06/24/25 23:35 05:48 09:07 WBC 6.24 RBC 3.77 L Hgb 10.8 L Hct 36.1 MCV 96 MCH 29 MCHC 30 L Plt Count 242 Sodium 141 Potassium 2.6 L* 2.9 L* Chloride 95 L Carbon Dioxide 40 H Anion Gap 6 L BUN 29 Creatinine 0.9 Estimated Creat Clear 52.36 Estimated GFR 70 Glucose 188 H Calcium 9.3 Total Bilirubin 0.6 AST 133 H ALT 311 H Alkaline Phosphatase 74 Troponin I < 0.01 Total Protein 6.7 Albumin 3.5 Free Valproic Acid 31 H Total Valproic Acid 90 % Free Valproic Acid 34 H Lab Acknowledgement 06/24/25 06/24/25 09:35 12:05 WBC RBC Hgb Hct MCV MCH MCHC Plt Count Sodium Potassium 3.2 L Chloride Carbon Dioxide Anion Gap BUN Creatinine Estimated Creat Clear Estimated GFR Glucose Calcium Total Bilirubin AST ALT Alkaline Phosphatase Troponin I < 0.01 Total Protein Albumin Free Valproic Acid Total Valproic Acid % Free Valproic Acid Lab Acknowledgement Test Added
[2025-06-24] MEDS: FUROSEMIDE 10 MG/ML inj 40 MG IVP (16:25)
--- NOTE | 2025-06-24 19:16 | PC.NURSE ---
End of Shift: Patient pleasant and cooperative, A&O. VSS, afebrile. SpO2 maintained above 88% on 2L NC. Patient reproted chest pain this morning, MD aware, EKG complete. Hart catheter patent and draining. Patient was having pain this shift, managed with PRN medication, see MAR. 1A walker and gait belt. PICC R upper arm.
[2025-06-24] MEDS: MELATONIN 3 MG TABLET 6 MG PO (21:36)
[2025-06-25] VITALS (10 sets, daily range): BP systolic 82–113; BP diastolic 57–84; PULSE 73–93; RESP 16–18; TEMP 36.2–36.7; O2SAT 88–92
[2025-06-25] MEDS: LEVOTHYROXINE 25 MCG TABLET PO (06:30)
[2025-06-25 06:41] LABS: Hematocrit 35.0 % (33.0-51.0); Hemoglobin* 10.3 gm/dL (12.0-16.0); Mean Corpuscular HGB Conc 29 gm/dL (32-36); Mean Corpuscular Hemoglobin 29 pg (26-34); Mean Corpuscular Volume 97 fL (80-100); Red Blood Count 3.61 m/uL (4.00-5.20); White Blood Count* 7.57 K/uL (4.50-11.00)
[2025-06-25 06:51] LABS: Slide Review Reflex No
--- NOTE | 2025-06-25 06:58 | PM.IMPN1 ---
Assessment and Plan Assessment and plan (1) Acute on chronic respiratory failure with hypoxia and hypercapnia: Problem comment: Hypoxia primarily due to heart failure. Hypercapnia due to combination of COPD and possible ANTHONY. Also multiple pulmonary nodules possibly representing inflammatory or infectious process. Initially treated with broad-spectrum antibiotic for pneumonia. Initially required BiPAP now weaned down to oxygen by nasal cannula. Patient reports previous sleep studies were normal though I can not find the results in her outside records. Status: Acute (2) Acute exacerbation of chronic heart failure: Problem comment: Heart failure with preserved ejection fraction. Diuresis as patient tolerates. Jardiance. Status: Acute (3) Metabolic encephalopathy: Problem comment: On admission was obtained ended secondary to respiratory failure and shock. Now resolved Status: Acute (4) Shock, cardiogenic: Problem comment: Patient had shock due to combination of heart failure, AFib with RVR and pulmonary edema, and acute adrenal crisis. Responded to IV hydrocortisone and norepinephrine drip. Status: Resolved (5) Atrial fibrillation with RVR: Problem comment: Rate control with increased metoprolol Status: Acute (6) Acute adrenal insufficiency: Problem comment: Stress dose steroids, initially IV now taper Status: Acute (7) Chronic adrenal insufficiency: Problem comment: -chronic adrenal insufficiency secondary to chronic use of steroids for adrenal insufficiency. Recommend stress dose steroids for acute illness in the outpatient setting. Status: Acute (8) Acute on chronic heart failure: Problem comment: Echocardiogram on June 21 2025 showed LV ejection fraction of 60-65%, [id number] tricuspid regurgitation, bicuspid aortic valve with mild stenosis Status: Acute (9) Chronic a-fib: Problem comment: On apixaban for stroke prophylaxis and metoprolol for rate control Status: Acute (10) History of pulmonary embolism: Problem comment: On Eliquis Status: Chronic (11) History of COPD: Problem comment: Hypoxic and hypercarbic respiratory failure on this admission. November 2024 pulmonary function testing showed FVC 50% of predicted at 1.3 L and FEV1 55% of predicted at 1.14 L Status: Acute (12) Diabetes: Problem comment: On low-dose Lantus outpatient. Sliding scale added in hospital. Jardiance added for heart failure and diabetes Status: Acute (13) Epilepsy: Problem comment: Resume her home meds Status: Acute (14) Elevated liver transaminase level: Problem comment: AST about 640, ALT about 300 Likely secondary to shock liver/hypotensive. Improving. Depakote amiodarone held briefly. Now resumed Status: Acute (15) Lung nodules: Problem comment: CT : Multifocal bilateral pulmonary nodules/consolidations likely indicative of multifocal infectious/inflammatory process. Recommend short-term interval follow-up CT chest to ensure resolution/exclude underlying malignant potential, done as an outpatient. Status: Acute (16) Hypokalemia: Problem comment: Likely secondary to aggressive diuresis. we have been replacing K+ every day. Status: Acute Plan Continue in-hospital to optimize heart failure care with a goal of weaning off oxygen. Continue to monitor for complications of chronic medical problems and current treatment. Total time spent today is 60 minutes in reviewing outside records, coordination of care and discussing plan of care with patient and other providers. Subjective Date Seen: 06/25/25 Interval history: 70-year-old female admitted to the hospital with respiratory failure and shock on 06/21/2025. Respiratory failure was thought primarily due to heart failure with possible contributions from multifocal pneumonia and COPD and suspected obstructive sleep apnea. She was placed on BiPAP and started on diuresis. Diuresis was limited initially due to shock. The shock was presumed primarily due to acute on chronic adrenal insufficiency. She was treated with intravenous hydrocortisone and norepinephrine and blood pressure improved relatively quickly. She was also found to be in atrial fibrillation with rapid ventricular response which was managed with increasing doses of metoprolol. She received broad-spectrum antibiotics for the possibility that pneumonia was contributing to her respiratory failure and shock. She has markedly improved with above treatment. She has weaned off of BiPAP to nasal cannula oxygen. She is weaned off antibiotics and pressors. She is weaned off IV hydrocortisone to oral hydrocortisone. Exam Narrative: Exam Narrative: She is alert and appears in no distress. She gives her own history. She does not recall some significant medical history.. She does not recall where she lives. Head is normal. Eyes are normal. Oropharynx with very small airway. Neck is supple without mass or adenopathy. Respirations are clear to auscultation except a few basilar crackles without wheezing rales or rhonchi. Good air exchange all lung ramey. Cardiovascular: S1, S2, irregular rhythm. 1/6 systolic murmur. Abdomen: Bowel sounds active. Abdomen is soft without tenderness. Lower extremities with 2+ edema and evidence of chronic venous insufficiency with bilateral erythema and thickening of the lower extremity skin. Const: Vital Signs, click to edit/add: Vital Signs - 24 hr 06/24/25 07:00 06/24/25 07:45 06/24/25 08:15 Temperature 97.7 F Pulse Rate 82 Pulse Rate [Left P ulse Oximeter] 87 87 Respiratory Rate 18 18 Blood Pressure [Le ft Arm] 134/103 H Pulse Oximetry 91 Oxygen Delivery Me thod Nasal Cannula Oxygen Flow Rate 3 06/24/25 12:26 06/24/25 15:00 06/24/25 15:00 Temperature 97.7 F 98.0 F Pulse Rate Pulse Rate [Left P ulse Oximeter] 85 88 88 Respiratory Rate 18 18 18 Blood Pressure [Le ft Arm] 119/86 112/86 Pulse Oximetry 91 90 Oxygen Delivery Me thod Nasal Cannula Nasal Cannula Oxygen Flow Rate 2 2 06/24/25 15:00 06/24/25 19:00 06/24/25 23:00 Temperature 98.5 F 97.5 F L Pulse Rate 78 Pulse Rate [Left P ulse Oximeter] 96 84 Respiratory Rate 20 18 Blood Pressure [Le ft Arm] 99/69 107/71 Pulse Oximetry 88 90 Oxygen Delivery Me thod Nasal Cannula Nasal Cannula Oxygen Flow Rate 2 2 06/24/25 23:00 06/25/25 03:00 Temperature 97.8 F Pulse Rate 76 Pulse Rate [Left P ulse Oximeter] 77 Respiratory Rate 18 Blood Pressure [Le ft Arm] 100/63 Pulse Oximetry 88 Oxygen Delivery Me thod Nasal Cannula Oxygen Flow Rate 2 Documenting provider has reviewed patient's vital signs: yes Labs Labs: Laboratory Results - last 24 hr 06/24/25 06/24/25 06/24/25 09:07 09:35 12:05 WBC RBC Hgb Hct MCV MCH MCHC Plt Count Potassium 2.9 L* 3.2 L Troponin I < 0.01 < 0.01 Lab Acknowledgement Test Added 06/25/25 06:17 WBC 7.57 RBC 3.61 L Hgb 10.3 L Hct 35.0 MCV 97 MCH 29 MCHC 29 L Plt Count 225 Potassium Troponin I Lab Acknowledgement
[2025-06-25 07:00] LABS: Albumin* 3.1 g/dL (3.3-5.0); Chloride* 97 mmol/L (96-114); Potassium* 3.4 mmol/L (3.6-5.1); Sodium* 140 mmol/L (135-149)
[2025-06-25 07:03] LABS: Alanine Aminotransferase* 217 U/L (4-35); Alkaline Phosphatase* 61 U/L (40-150); Anion Gap 3 mEq/L (7-15); Aspartate Amino Transferase* 104 U/L (12-35); Bilirubin Total* 0.6 mg/dL (0.1-1.5); Blood Urea Nitrogen* 29 mg/dL (7-30); Calcium* 8.7 mg/dL (8.4-10.6); Carbon Dioxide* 40 mmol/L (20-32); Creatinine* 1.0 mg/dL (0.5-1.5); Est. Creatinine Clearance* 52.36; Estimated Glomerular Filt Rate 61 ml/min; Glucose* 131 mg/dL (60-115); Total Protein* 6.1 g/dL (6.0-8.3)
[2025-06-25 08:38] LABS: Free T4 Free Thyroxine* 1.11 ng/dL (0.70-1.85)
[2025-06-25] MEDS: TORSEMIDE 20 MG TABLET 40 MG PO (09:04)
[2025-06-25] MEDS: POTASSIUM BICARB 25 MEQ EFFERVESCENT TAB PO (09:04)
[2025-06-25] MEDS: APIXABAN 5 MG TABLET PO ×2 (09:05→21:31)
[2025-06-25] MEDS: POTASSIUM CHLORIDE 10 MEQ CAPSULE ER 20 MEQ PO (09:05)
[2025-06-25] MEDS: PANTOPRAZOLE SODIUM 40 MG INJ IVP (09:55)
[2025-06-25] MEDS: METOPROLOL TARTRATE 25 MG TABLET 50 MG PO (09:56)
[2025-06-25] MEDS: HYDROCORTISONE 10 MG TABLET 20 MG PO (09:56)
[2025-06-25] MEDS: SERTRALINE 50 MG TABLET 25 MG PO (09:56)
[2025-06-25] MEDS: SODIUM CHLORIDE 0.9 % (FLUSH) 10 ML SYRINGE 5 ML IVF ×2 (09:57→21:31)
[2025-06-25] MEDS: EMPAGLIFLOZIN 10 MG TABLET PO (09:57)
[2025-06-25] MEDS: AMIODARONE 200 MG TABLET PO (10:14)
[2025-06-25 14:31] LABS: Potassium* 3.7 mmol/L (3.6-5.1)
[2025-06-25] MEDS: HYDROCORTISONE 10 MG TABLET PO (17:58)
[2025-06-25] MEDS: METFORMIN ER 500 MG PO (17:58)
--- NOTE | 2025-06-25 18:59 | PC.NURSE ---
End of Shift: Patient pleasant and cooperative, A&O. Patient was slightly hypotensive this morning, asymptomatic, MD notified, no new orders, patients most recent BP was 102/67. Tele: vee NVR. PICC line dressing change today. Incontinent of bladder this shift, briefs changed accordingly. Tolerating regular diet. 1A with walker and gait belt. Patient spent the majority of the shift in the chair. Appears to be resting comfortably in bed with call light within reach.
--- NOTE | 2025-06-25 19:23 | RESP.RT ---
Patient continues to be on 2L NC SATing 88-92%. Patient had supplemental O2 at her [facility] and when she transferred to assisted living that supplemental O2 accidentally followed her there, but she has not been using it. If the patient continues to require supplemental O2 she will need to be set up with a new DME and the concentrator that she currently has will need to be picked up by [facility].
[2025-06-25] MEDS: DIVALPROEX DELAYED RELEASE 250 MG TABLET 2000 MG PO (21:30)
[2025-06-25] MEDS: MELATONIN 3 MG TABLET 6 MG PO (21:31)
[2025-06-25] MEDS: METOPROLOL TARTRATE 25 MG TABLET 37.5 MG PO (21:31)
[2025-06-26] VITALS (12 sets, daily range): BP systolic 96–117; BP diastolic 64–91; PULSE 67–85; RESP 16–18; TEMP 35.9–37; O2SAT 90–93
[2025-06-26] MEDS: LEVOTHYROXINE 25 MCG TABLET PO (06:24)
[2025-06-26] MEDS: OMEPRAZOLE 20 MG CAPSULE DR PO (06:25)
--- NOTE | 2025-06-26 06:40 | PC.NURSE ---
The patient is cooperative, VSS on 2L. Up Ax1 to BR throughout the night for timed toileting, incontinent as well. The patient is noted to be moving better. The patient reports feet pain as well, PRN oxy given. The patient desaturates quite a bit when she sleeps, maybe underlying ANTHONY? Call light and alarms are in place. Lisa LYN BSN
--- NOTE | 2025-06-26 08:32 | PM.IMPN1 ---
Assessment and Plan Assessment and plan (1) Acute on chronic respiratory failure with hypoxia and hypercapnia: Problem comment: Hypoxia primarily due to heart failure. Hypercapnia due to combination of COPD and possible ANTHONY. Also multiple pulmonary nodules possibly representing inflammatory or infectious process. Initially treated with broad-spectrum antibiotic for pneumonia. Initially required BiPAP now weaned down to oxygen by nasal cannula. Patient reports previous sleep studies were normal though I can not find the results in her outside records. Outside records do indicate ANTHONY with noncompliance with CPAP. High-dose gabapentin puts her at risk for respiratory failure Status: Acute (2) Acute exacerbation of chronic heart failure: Problem comment: Heart failure with preserved ejection fraction. Diuresis as patient tolerates. Jardiance. Status: Acute (3) Metabolic encephalopathy: Problem comment: On admission was obtunded secondary to respiratory failure and shock. Now resolved. High-dose gabapentin puts her at risk for altered mental status and respiratory failure Status: Acute (4) Shock, cardiogenic: Problem comment: Patient had shock due to combination of heart failure, AFib with RVR and pulmonary edema, and acute adrenal crisis. Responded to IV hydrocortisone and norepinephrine drip. Blood pressure has been in the low normal range with good rate control. Status: Resolved (5) Atrial fibrillation with RVR: Problem comment: Rate control with increased metoprolol, 37.5 mg b.i.d. Status: Acute (6) Acute adrenal insufficiency: Problem comment: Stress dose steroids, initially IV now taper oral hydrocortisone to maintenance dose Status: Acute (7) Chronic adrenal insufficiency: Problem comment: -chronic adrenal insufficiency secondary to chronic use of steroids for adrenal insufficiency. In the future I recommend she receive stress dose steroids, double or triple dose for 3 days, for acute illness in the outpatient setting Status: Acute (8) Acute on chronic heart failure: Problem comment: Echocardiogram on June 21 2025 showed LV ejection fraction of 60-65%, [id number] tricuspid regurgitation, bicuspid aortic valve with mild stenosis. Status: Acute (9) Chronic a-fib: Problem comment: On apixaban for stroke prophylaxis and metoprolol for rate control Status: Acute (10) History of pulmonary embolism: Problem comment: On Eliquis Status: Chronic (11) History of COPD: Problem comment: Hypoxic and hypercarbic respiratory failure on this admission. November 2024 pulmonary function testing showed FVC 50% of predicted at 1.3 L and FEV1 55% of predicted at 1.14 L Status: Acute (12) Diabetes: Problem comment: On low-dose Lantus outpatient. Lantus stopped in-hospital. Sliding scale added in hospital. She required very little sliding scale insulin. Jardiance added for heart failure and diabetes. Also added metformin. Hemoglobin A1c 6.5 Status: Acute (13) Epilepsy: Problem comment: Resume home Depakote Status: Acute (14) Elevated liver transaminase level: Problem comment: AST about 640, ALT about 300 Likely secondary to shock liver/hypotensive. Improving. Depakote and amiodarone held briefly. Now resumed. They are not likely the cause of elevated transaminases Status: Acute (15) Lung nodules: Problem comment: CT : Multifocal bilateral pulmonary nodules/consolidations likely indicative of multifocal infectious/inflammatory process. Recommend short-term interval follow-up CT chest to ensure resolution/exclude underlying malignant potential, done as an outpatient. Status: Acute (16) Hypokalemia: Problem comment: Due to aggressive diuresis. Replaced with IV and oral potassium. Likely needs low-dose oral potassium chronically Status: Acute (17) Polypharmacy: Problem comment: Patient is at risk for significant complications and side effects of polypharmacy. Multiple medication changes made in the hospital as follows: Due to altered mental status and respiratory failure gabapentin was initially held and then reduced to avoid withdrawal symptoms. Recommend discontinuing gabapentin with a taper over a couple weeks. Risks of respiratory depression probably outweigh uncertain benefits. Insulin was discontinued as she did not appear to need insulin for blood sugar control. Zithromax 500 mg daily was discontinued for lack of indication. This has been used in patients with bronchiectasis and COPD with frequent exacerbations. I could not find evidence of that in outside records. She does not have severe COPD. If patient would benefit from Zithromax consider reduced dose of 250 mg daily or 500 mg 3 times a week. Status: Acute Plan Patient will continue in hospital for management of ongoing hypoxic respiratory failure and other medical problems as noted above. Possible discharge to home tomorrow with or without oxygen. Total Time Spent Total Time Spent: Total time spent today is 55 minutes in reviewing outside records, coordination of care and discussing with patient and other providers management of multiple problems above. Subjective Date Seen: 06/26/25 Interval history: 70-year-old female admitted to the hospital with respiratory failure and shock on 06/21/2025. Respiratory failure was thought primarily due to heart failure with possible contributions from multifocal pneumonia and COPD and suspected obstructive sleep apnea. She was placed on BiPAP and started on diuresis. Diuresis was limited initially due to shock. The shock was presumed primarily due to acute on chronic adrenal insufficiency. She was treated with intravenous hydrocortisone and norepinephrine and blood pressure improved relatively quickly. She was also found to be in atrial fibrillation with rapid ventricular response which was managed with increasing doses of metoprolol. She received broad-spectrum antibiotics for the possibility that pneumonia was contributing to her respiratory failure and shock. She has markedly improved with above treatment. She has weaned off of BiPAP to nasal cannula oxygen. She is weaned off antibiotics and pressors. She is weaned off IV hydrocortisone to oral hydrocortisone. 06/26/2025: Patient has no concerns today. She still requiring oxygen to maintain her O2 sats above 90%. No dyspnea. No cough. No chest pain. She reports a good appetite. She has been off insulin for the last couple days without significant hyperglycemia. She has been off gabapentin for 5 days now resumed at low dose to avoid significant withdrawal. Exam Narrative: Exam Narrative: She is alert and appears in no distress. Respirations are clear to auscultation without wheezing rales or rhonchi. Fairly good air exchange in all lung ramey. Cardiovascular: S1, S2, regular rate and rhythm. Abdomen: Bowel sounds active. Abdomen is soft without tenderness. Extremities with bilateral moderate erythema and thickening of the skin consistent with chronic venous stasis disease. Trace edema. Const: Vital Signs, click to edit/add: Vital Signs - 24 hr 06/25/25 11:45 06/25/25 15:00 06/25/25 16:49 Temperature 97.5 F L 97.4 F L Pulse Rate 73 Pulse Rate [Left P ulse Oximeter] 74 93 Respiratory Rate 18 16 Blood Pressure [Le ft Arm] 82/57 L 102/67 Pulse Oximetry 89 90 Oxygen Delivery Me thod Nasal Cannula Nasal Cannula Oxygen Flow Rate 2 2 06/25/25 16:53 06/25/25 20:30 06/25/25 22:55 Temperature 98.0 F 97.8 F Pulse Rate Pulse Rate [Left P ulse Oximeter] 93 84 89 Respiratory Rate 16 18 18 Blood Pressure [Le ft Arm] 104/84 113/82 Pulse Oximetry 89 92 Oxygen Delivery Me thod Nasal Cannula Nasal Cannula Oxygen Flow Rate 1.5 1.5 06/25/25 23:00 06/26/25 03:00 06/26/25 07:31 Temperature 97.8 F Pulse Rate 78 76 Pulse Rate [Left P ulse Oximeter] 73 Respiratory Rate 18 Blood Pressure [Le ft Arm] 117/91 H Pulse Oximetry 93 Oxygen Delivery Me thod Nasal Cannula Oxygen Flow Rate 2 06/26/25 07:39 Temperature 96.7 F L Pulse Rate Pulse Rate [Left P ulse Oximeter] 71 Respiratory Rate 16 Blood Pressure [Le ft Arm] 113/64 Pulse Oximetry 92 Oxygen Delivery Me thod Nasal Cannula Oxygen Flow Rate 1.5 Documenting provider has reviewed patient's vital signs: yes Labs Labs: Laboratory Results - last 24 hr 06/25/25 06/25/25 06:17 14:10 Potassium 3.7 Free T4 1.11
[2025-06-26] MEDS: GABAPENTIN 300 MG CAPSULE PO ×2 (09:04→21:44)
[2025-06-26] MEDS: TORSEMIDE 20 MG TABLET 40 MG PO (09:04)
[2025-06-26] MEDS: METFORMIN ER 500 MG PO ×2 (09:04→17:47)
[2025-06-26] MEDS: POTASSIUM CHLORIDE 10 MEQ CAPSULE ER 20 MEQ PO (09:04)
[2025-06-26] MEDS: EMPAGLIFLOZIN 10 MG TABLET PO (09:05)
[2025-06-26] MEDS: METOPROLOL TARTRATE 25 MG TABLET 37.5 MG PO ×2 (09:05→21:45)
[2025-06-26] MEDS: SERTRALINE 50 MG TABLET 25 MG PO (09:06)
[2025-06-26] MEDS: APIXABAN 5 MG TABLET PO ×2 (09:06→21:44)
[2025-06-26] MEDS: SODIUM CHLORIDE 0.9 % (FLUSH) 10 ML SYRINGE 5 ML IVF ×2 (09:08→21:46)
[2025-06-26 09:09] LABS: HCO3 VBG 38 mmol/L (21-28); PCO2 VBG 54 mmHG (40-50); PO2 VBG 33.8 mmHG (25-47); pH VBG 7.460 (7.32-7.43)
[2025-06-26] MEDS: HYDROCORTISONE 10 MG TABLET 20 MG PO (09:09)
[2025-06-26] MEDS: AMIODARONE 200 MG TABLET PO (09:10)
[2025-06-26 09:27] LABS: Albumin* 3.3 g/dL (3.3-5.0); Chloride* 97 mmol/L (96-114); Sodium* 140 mmol/L (135-149)
[2025-06-26 09:28] LABS: Potassium* 3.9 mmol/L (3.6-5.1)
[2025-06-26 09:30] LABS: Alanine Aminotransferase* 201 U/L (4-35); Alkaline Phosphatase* 65 U/L (40-150); Anion Gap 3 mEq/L (7-15); Aspartate Amino Transferase* 97 U/L (12-35); Bilirubin Direct* 0.2 mg/dL (0.0-0.5); Bilirubin Total* 0.5 mg/dL (0.1-1.5); Blood Urea Nitrogen* 28 mg/dL (7-30); Calcium* 9.3 mg/dL (8.4-10.6); Carbon Dioxide* 40 mmol/L (20-32); Creatinine* 1.0 mg/dL (0.5-1.5); Est. Creatinine Clearance* 52.36; Estimated Glomerular Filt Rate 61 ml/min; Glucose* 120 mg/dL (60-115); Total Protein* 6.4 g/dL (6.0-8.3)
[2025-06-26] MEDS: INSULIN ASPART 100 UNIT/ML SUBCUT ×2 (17:47→21:51)
[2025-06-26] MEDS: HYDROCORTISONE 10 MG TABLET PO (17:47)
--- NOTE | 2025-06-26 17:58 | PC.NURSE ---
Pt is doing well today, pleasant to care for. VSS. A&Ox4, however forgetful. Pain is controlled with PRN pain medications. Pt has minimal SOB with activity, she is using one to two assist with the walker. Pt continues to require 2L O2 NC to maintain sats at 90%. BLE's are red and tender to the touch, +1 edema bilaterally, pt is tolerating BLE elevation well. Pt is tolerating regular diet well, she has been up in chair for all meals this shift.
[2025-06-26] MEDS: DIVALPROEX DELAYED RELEASE 250 MG TABLET 2000 MG PO (21:44)
[2025-06-26] MEDS: MELATONIN 3 MG TABLET 6 MG PO (21:44)
--- NOTE | 2025-06-27 | PC.NURSE ---
End of shift: Pt pleasant, alert and oriented. VSS, on 2L o2. pt stated pain, prn oxy given. 1-2a, tolerated well. Pt in bed, appears to be resting, call light within reach.?
[2025-06-27 04:00] VITALS: BP 107/63; BP 116/81; PULSE 68; PULSE 75; RESP 16; RESP 18; TEMP 36.5; TEMP 36.8; O2SAT 90
[2025-06-27] MEDS: LEVOTHYROXINE 25 MCG TABLET PO (06:17)
[2025-06-27] MEDS: OMEPRAZOLE 20 MG CAPSULE DR PO (06:30)
--- NOTE | 2025-06-27 06:38 | PC.NURSE ---
Pt is alert and oriented to self and place only. Pt reports 8/10 pain in lower back, pain managed with PRN medication. Pt was titrated from 2L of O2 via nasal cannula to 1L to maintain O2 stats of 90%. Pt is up A1 with walker and gait belt voiding and tolerating a soft diet. ??
[2025-06-27 06:47] LABS: HCO3 VBG 26 mmol/L (21-28); PCO2 VBG 39 mmHG (40-50); PO2 VBG 36.5 mmHG (25-47); pH VBG 7.428 (7.32-7.43)
[2025-06-27 07:00] VITALS: BP 100/66; PULSE 72; PULSE 75; RESP 15; TEMP 36.6; O2SAT 87; O2SAT 92
[2025-06-27 07:56] LABS: Anion Gap 3 mEq/L (7-15); Blood Urea Nitrogen* 29 mg/dL (7-30); Calcium* 9.4 mg/dL (8.4-10.6); Carbon Dioxide* 37 mmol/L (20-32); Chloride* 97 mmol/L (96-114); Creatinine* 1.0 mg/dL (0.5-1.5); Est. Creatinine Clearance* 52.36; Estimated Glomerular Filt Rate 61 ml/min; Glucose* 108 mg/dL (60-115); Potassium* 3.8 mmol/L (3.6-5.1); Sodium* 137 mmol/L (135-149)
[2025-06-27] MEDS: POTASSIUM CHLORIDE 10 MEQ CAPSULE ER 20 MEQ PO (08:14)
[2025-06-27] MEDS: METFORMIN ER 500 MG PO (08:14)
[2025-06-27] MEDS: TORSEMIDE 20 MG TABLET 40 MG PO (08:14)
[2025-06-27] MEDS: METOPROLOL TARTRATE 25 MG TABLET 37.5 MG PO (09:39)
[2025-06-27] MEDS: SERTRALINE 50 MG TABLET 25 MG PO (09:39)
[2025-06-27] MEDS: GABAPENTIN 300 MG CAPSULE PO (09:40)
[2025-06-27] MEDS: APIXABAN 5 MG TABLET PO (09:40)
[2025-06-27] MEDS: EMPAGLIFLOZIN 10 MG TABLET PO (09:41)
[2025-06-27] MEDS: AMIODARONE 200 MG TABLET PO (09:42)
[2025-06-27] MEDS: HYDROCORTISONE 10 MG TABLET PO (10:02)
[2025-06-27 11:00] VITALS: BP 93/67; PULSE 69; RESP 16; O2SAT 88
--- NOTE | 2025-06-27 11:28 | PC.SOCIAL ---
Discharge planning: SEAN spoke with Alyssa at [facility] who states that patient can come back with oxygen and that there is no time constraint on when she can arrive. Alyssa had questions about the oxygen and SW provided number for our respiratory therapist. SEAN also asked our respiratory therapist to call Alyssa. Alyssa had questions about new medications and SEAN updated with the three new meds. Alyssa requested orders be secure emailed. SEAN secure emailed completed orders to Alyssa and informed that patient's sister and [id number] will be providing transportation with a discharge between 200 and 230. SW to assist if other needs arise.
--- NOTE | 2025-06-27 13:33 | PM.DS1 ---
DS: Providers Provider Date Seen: 06/27/25 Date of admission: 06/21/25 05:42 Primary care physician: Not a Local Provider Admitting Clinician: Samanta Davenport MD Attending Physician on discharge: Jose Espinal MD Date of Discharge: 06/27/25 DS: Diagnosis Discharge Diagnosis (1) Acute on chronic respiratory failure with hypoxia and hypercapnia: Status: Acute Problem details: Hypoxia primarily due to heart failure. Hypercapnia due to combination of COPD and possible ANTHONY. Also multiple pulmonary nodules possibly representing inflammatory or infectious process. Initially treated with broad-spectrum antibiotic for pneumonia. Initially required BiPAP now weaned down to oxygen by nasal cannula. Patient reports previous sleep studies were normal though I can not find the results in her outside records. Outside records do indicate ANTHONY with noncompliance with CPAP. High-dose gabapentin puts her at risk for respiratory failure (2) Acute exacerbation of chronic heart failure: Status: Acute Problem details: Heart failure with preserved ejection fraction. Diuresis as patient tolerates. Jardiance. (3) Metabolic encephalopathy: Status: Acute Problem details: On admission was obtunded secondary to respiratory failure and shock. Now resolved. High-dose gabapentin puts her at risk for altered mental status and respiratory failure (4) Shock, cardiogenic: Status: Resolved Problem details: Patient had shock due to combination of heart failure, AFib with RVR and pulmonary edema, and acute adrenal crisis. Responded to IV hydrocortisone and norepinephrine drip. Blood pressure has been in the low normal range with good rate control. (5) Atrial fibrillation with RVR: Status: Acute Problem details: Rate control with increased metoprolol, 37.5 mg b.i.d. (6) Acute adrenal insufficiency: Status: Acute Problem details: Stress dose steroids, initially IV now taper oral hydrocortisone to maintenance dose (7) Chronic adrenal insufficiency: Status: Acute Problem details: -chronic adrenal insufficiency secondary to chronic use of steroids for adrenal insufficiency. In the future I recommend she receive stress dose steroids, double or triple dose for 3 days, for acute illness in the outpatient setting (8) Acute on chronic heart failure: Status: Acute Problem details: Echocardiogram on June 21 2025 showed LV ejection fraction of 60-65%, [id number] tricuspid regurgitation, bicuspid aortic valve with mild stenosis. (9) Chronic a-fib: Status: Acute Problem details: On apixaban for stroke prophylaxis and metoprolol for rate control (10) History of pulmonary embolism: Status: Chronic Problem details: On Eliquis (11) History of COPD: Status: Acute Problem details: Hypoxic and hypercarbic respiratory failure on this admission. November 2024 pulmonary function testing showed FVC 50% of predicted at 1.3 L and FEV1 55% of predicted at 1.14 L (12) Diabetes: Status: Acute Problem details: On low-dose Lantus outpatient. Lantus stopped in-hospital. Sliding scale added in hospital. She required very little sliding scale insulin. Jardiance added for heart failure and diabetes. Also added metformin. Hemoglobin A1c 6.5 (13) Epilepsy: Status: Acute Problem details: Resume home Depakote (14) Elevated liver transaminase level: Status: Acute Problem details: AST about 640, ALT about 300 Likely secondary to shock liver/hypotensive. Improving. Depakote and amiodarone held briefly. Now resumed. They are not likely the cause of elevated transaminases (15) Lung nodules: Status: Acute Problem details: CT : Multifocal bilateral pulmonary nodules/consolidations likely indicative of multifocal infectious/inflammatory process. Recommend short-term interval follow-up CT chest to ensure resolution/exclude underlying malignant potential, done as an outpatient. (16) Hypokalemia: Status: Acute Problem details: Due to aggressive diuresis. Replaced with IV and oral potassium. Likely needs low-dose oral potassium chronically (17) Polypharmacy: Status: Acute Problem details: Patient is at risk for significant complications and side effects of polypharmacy. Multiple medication changes made in the hospital as follows: Due to altered mental status and respiratory failure gabapentin was initially held and then reduced to avoid withdrawal symptoms. Recommend discontinuing gabapentin with a taper over a couple weeks. Risks of respiratory depression probably outweigh uncertain benefits. Insulin was discontinued as she did not appear to need insulin for blood sugar control. Zithromax 500 mg daily was discontinued for lack of indication. This has been used in patients with bronchiectasis and COPD with frequent exacerbations. I could not find evidence of that in outside records. She does not have severe COPD. If patient would benefit from Zithromax consider reduced dose of 250 mg daily or 500 mg 3 times a week. (18) Obstructive sleep apnea: Status: Acute Problem details: Patient denies having this problem but outside records indicate she has ANTHONY but is noncompliant with CPAP. She is likely to have ongoing nocturnal hypoxia in the absence of CPAP therapy. DS: Summary Hospital Course Hospital Course: 70-year-old female admitted to the hospital with respiratory failure and shock on 06/21/2025. Respiratory failure was thought primarily due to heart failure with possible contributions from multifocal pneumonia and COPD and suspected obstructive sleep apnea. She was placed on BiPAP and started on diuresis. Diuresis was limited initially due to shock. The shock was presumed primarily due to acute on chronic adrenal insufficiency. She was treated with intravenous hydrocortisone and norepinephrine and blood pressure improved relatively quickly. She was also found to be in atrial fibrillation with rapid ventricular response which was managed with increasing doses of metoprolol. She received broad-spectrum antibiotics for the possibility that pneumonia was contributing to her respiratory failure and shock. She has markedly improved with above treatment. She has weaned off of BiPAP to nasal cannula oxygen. She is weaned off antibiotics and pressors. She is weaned off IV hydrocortisone to oral hydrocortisone. On the day of discharge patient reports feeling well and is anxious to go home. She has no dyspnea. She continues to have occasional episodes where she is hypoxic, particularly with sleep and with activity but this is not bothering to her. I again recommended that she consider CPAP therapy tell manage this. Medications have been adjusted to optimize her heart failure management. Status at Discharge Functional status at discharge: uses cane/walker Overall status at discharge: patient is progressing back to baseline Time Spent with Patient Time attestation: Total time spent providing and/or coordinating discharge services: 45 minutes Exam Narrative: Exam Narrative: She is alert and appears in no distress. Respirations are clear to auscultation without wheezing rales rhonchi. Fair air exchange in all lung ramey. Cardiovascular: S1, S2, irregularly irregular. Abdomen is soft without tenderness. Extremities without edema. Const: Vital Signs, click to edit/add: Vital Signs - 24 hr 06/26/25 14:51 06/26/25 14:57 06/26/25 15:00 Temperature 97.2 F L Pulse Rate 67 Pulse Rate [Left P ulse Oximeter] 85 85 Respiratory Rate 16 16 Blood Pressure Blood Pressure [Le ft Arm] Blood Pressure [le ft FA] Pulse Oximetry 90 Oxygen Delivery Me thod Nasal Cannula Oxygen Flow Rate 2 Fraction of Inspir ed Oxygen 06/26/25 15:15 06/26/25 19:30 06/26/25 23:25 Temperature 97.9 F Pulse Rate Pulse Rate [Left P ulse Oximeter] 82 79 Respiratory Rate 18 Blood Pressure Blood Pressure [Le ft Arm] 112/70 102/71 Blood Pressure [le ft FA] Pulse Oximetry 93 Oxygen Delivery Me thod Room Air Oxygen Flow Rate 2 Fraction of Inspir ed Oxygen 06/26/25 23:25 06/26/25 23:40 06/27/25 04:00 Temperature 97.7 F 98.2 F Pulse Rate 75 Pulse Rate [Left P ulse Oximeter] 82 68 Respiratory Rate 18 16 Blood Pressure Blood Pressure [Le ft Arm] 102/73 116/81 Blood Pressure [le ft FA] Pulse Oximetry 90 90 Oxygen Delivery Me thod Nasal Cannula Nasal Cannula Oxygen Flow Rate 2 1.5 Fraction of Inspir ed Oxygen 06/27/25 04:00 06/27/25 07:00 06/27/25 07:00 Temperature 97.7 F Pulse Rate 75 72 Pulse Rate [Left P ulse Oximeter] Respiratory Rate 18 Blood Pressure 107/63 Blood Pressure [Le ft Arm] Blood Pressure [le ft FA] Pulse Oximetry 90 87 L Oxygen Delivery Me thod Nasal Cannula Nasal Cannula Oxygen Flow Rate 2 1 Fraction of Inspir ed Oxygen 45 06/27/25 07:00 06/27/25 07:00 06/27/25 11:00 Temperature 97.9 F Pulse Rate Pulse Rate [Left P ulse Oximeter] 75 75 69 Respiratory Rate 15 15 16 Blood Pressure Blood Pressure [Le ft Arm] Blood Pressure [le ft FA] 100/66 93/67 Pulse Oximetry 92 88 Oxygen Delivery Me thod Room Air Room Air Oxygen Flow Rate Fraction of Inspir ed Oxygen DS: Data Data Completed and Pending Labs on day of discharge: Labs from last 24 hours 06/27/25 06/27/25 07:35 06:42 VBG pH 7.428 VBG pCO2 39 L VBG pO2 36.5 VBG HCO3 26 Sodium 137 Cancelled Potassium 3.8 Cancelled Chloride 97 Cancelled Carbon Dioxide 37 H Cancelled Anion Gap 3 L Cancelled BUN 29 Cancelled Creatinine 1.0 Cancelled Estimated Creat Clear 52.36 Cancelled Estimated GFR 61 Cancelled Glucose 108 Cancelled Calcium 9.[address] scan - chest: Radiologist's impression: INDICATION: Pulmonary embolism (PE) suspected, shortness of breath. TECHNIQUE: CT chest PE was acquired with 95 cc Isovue 370 IV contrast. Multiplanar reformats performed including axial MIP reconstructions. COMPARISON: Chest x-ray 06/20/2025. CT chest 11/07/2023. FINDINGS: Heart and vasculature: No pulmonary embolism appreciated. There is cardiomegaly without pericardial effusion. There is reflux of contrast within the hepatic veins. Main pulmonary artery is mildly dilated to 3.1 cm. No thoracic aortic aneurysm. Lungs and pleura: Small right pleural effusion. No pneumothorax. Mild bilateral interlobular septal thickening. Bilateral multifocal nodules/consolidations with more streaky consolidations at the lung bases and scattered superimposed ground-glass attenuation. Patent central airways. Lymph nodes/mediastinum: Enlarged mediastinal lymph nodes with largest lower paratracheal lymph node measuring up to 1.1 cm in short axis (series 4, image 54). Chest wall: No suspicious chest wall mass or fluid collection. Upper abdomen: No acute abnormality. Bones: No acute abnormality. IMPRESSION: 1. No pulmonary embolism identified. 2. Multifocal bilateral pulmonary nodules/consolidations likely indicative of multifocal infectious/inflammatory process. Recommend short-term interval follow-up CT chest to ensure resolution/exclude underlying malignant potential. 3. Cardiomegaly. Mild bilateral interlobular septal thickening and scattered ground-glass attenuation may reflect sequelae of mild pulmonary edema. 4. Small right pleural effusion. 5. Mediastinal lymphadenopathy, likely reactive. 6. Mild dilatation of the main pulmonary artery which may be seen in the setting of pulmonary hypertension. Discharge Plan Discharge Disposition: [facility] Date of Admission: 06/21/25 05:42 Attending Provider on Discharge: Damion Espinal Primary Care Provider: Provider,Not a Local Condition: Guarded Discharge Medications: New Jardiance 10 mg tablet 10 mg PO QAM Qty: 30 2RF potassium chloride 10 mEq capsule, extended release 10 meq PO DAILY Qty: 30 2RF metformin 500 mg tablet extended release 24 hr 500 mg PO DAILY Qty: 30 3RF Continued Spiriva Respimat 2.5 mcg/actuation mist 2 inh inhalation DAILY Trelegy Ellipta 100-62.5-25 mcg blister with device 1 inh inhalation DAILY ergocalciferol (vitamin D2) 1,250 mcg (50,000 unit) capsule 1,250 mcg PO .sat acetaminophen 325 mg tablet 650 mg PO TID Rx Instructions: and 325 mg every 8 hours prn amiodarone 200 mg tablet 200 mg PO DAILY ammonium lactate 12 % cream 1 applic topical BID calcium carbonate-vitamin D3 600 mg-10 mcg (400 unit) tablet 1 tab PO BID diclofenac sodium 1 % gel 4 g topical QID divalproex 500 mg tablet extended release 24 hr 2,000 mg PO HS fluticasone propionate [24 Hour Allergy Relief] 50 mcg/actuation spray,suspension 2 spray intranasal DAILY Rx Instructions: administer into each nostril guaifenesin [Chest Congestion Relief] 100 mg/5 mL liquid 200 mg PO Q4H PRN hydrocortisone 10 mg tablet 5 mg PO QPM hydrocortisone [Cortef] 10 mg tablet 10 mg PO DAILY lidocaine 4 % adhesive patch,medicated 1 patch topical DAILY@19 levothyroxine 25 mcg tablet 25 mcg PO DAILY melatonin 5 mg tablet 5 mg PO HS montelukast 10 mg tablet 10 mg PO DAILY multivitamin with folic acid [Tab-A-Tiffanie] 400 mcg tablet 1 tab PO DAILY polyethylene glycol 3350 [Gavilax] 17 gram powder in packet 17 g PO DAILY PRN rosuvastatin 20 mg tablet 20 mg PO HS sennosides-docusate sodium [Colace 2-In-1] 8.6-50 mg tablet 1 tab-cap PO DAILY PRN sertraline 25 mg tablet 25 mg PO DAILY Deep [place] Nasal 0.65 % aerosol,spray 1 spray INTRANASAL BID Nurtec ODT 75 mg tablet,disintegrating 75 mg PO DAILY PRN ascorbic acid (vitamin C) 1,000 mg tablet 1,000 mg PO BID cyanocobalamin (vitamin B-12) 500 mcg tablet 500 mcg PO DAILY cholecalciferol (vitamin D3) 125 mcg (5,000 unit) capsule 125 mcg PO QAM Eliquis 5 mg tablet 5 mg PO BID naloxone [Narcan] 4 mg/actuation spray,non-aerosol 4 mg intranasal Q2M PRN torsemide 20 mg tablet 40 mg PO DAILY Changed gabapentin 400 mg capsule 400 mg PO DAILY Qty: 30 0RF metoprolol tartrate 25 mg tablet 37.5 mg PO BID Qty: 45 0RF Discontinued azithromycin 500 mg tablet 500 mg PO DAILY insulin glargine [Lantus Solostar U-100 Insulin] 100 unit/mL (3 mL) insulin pen 13 unit subcut HS nicotine 14 mg/24 hr patch 24 hour 1 patch topical DAILY Discharge Orders: Discharge Order (Routine); Ordered 08/11/25 Ordered By: Damion Espinal Activity Level: Use Walker Activity Detail: Check daily weight. Check blood pressure and pulse daily for 1 week. Discharge Diet: Heart Healthy (2 gm sodium, low fat) Follow Up Appointments: Provider,Not a Local [Primary Care Provider, Family Practice] Forms: LogoGrab Info Instructions Admit to: Assisted Living Discharge Potential: Poor Length of Stay: >90 days Can use facility standing orders?: Yes Code Status: DNR/DNI TEDs: Bilateral Knee Rehab Potential: Fair Therapy Orders Additional Information: Resume prior PT and OT orders Oxygen: No Glucose Checks: Check blood sugar daily in the morning and as needed for symptoms Lab Orders: Basic metabolic panel in 1 week
[2025-06-27 15:00] VITALS: BP 90/60; PULSE 81; RESP 15; O2SAT 84
--- NOTE | 2025-06-27 16:33 | PC.NURSE ---
Nursing Care Hours: [id number] Pt this shift calm and cooperative, alert and oriented. Pain reported to back 06/26, treated per eMAR. VSS. Updated hospitalist about hypotension without symptoms at discharge assessment. PICC removed per policy without issue. IV removed at discharge. Hospitalist brought into room to discuss discharge plan regarding oxygen and sleep study with pt sister and brother in law. Questions answered and pt family satisfied. Pt wheeled out to vehicle in stable condition. Nurse to nurse done over the phone.
--- NOTE | 2025-06-28 13:00 | PC.SOCIAL ---
Discharge planning: electrical linesworker faxed pt's discharge summary with resumption of care orders for home care to [facility] at fax number #[phone]. Social work to follow-up as needed.
== END 2025-06-27 15:30 | DRG 189 ==
LOC: ED 06-21 04:46 → MEDSURG 06-21 05:43
PROVIDERS: Family Medicine; Student in an Organized Health Care Education/Training Program; Admitting Provider Internal Medicine; Emergency Provider Family Medicine; Visit Provider Family Medicine
DX: J96.22 Acute and chronic respiratory failure with hypercapnia (principal); J18.9 Pneumonia, unspecified organism; R57.0 Cardiogenic shock; I50.33 Acute on chronic diastolic (congestive) heart failure; G93.41 Metabolic encephalopathy; E27.3 Drug-induced adrenocortical insufficiency; F11.20 Opioid dependence, uncomplicated; J91.8 Pleural effusion in other conditions classified elsewhere; E27.49 Other adrenocortical insufficiency; J96.21 Acute and chronic respiratory failure with hypoxia; Z87.891 Personal history of nicotine dependence; T38.0X5A Adverse effect of glucocorticoids and synthetic analogues, initial encounter; R74.01 Elevation of levels of liver transaminase levels; Z79.01 Long term (current) use of anticoagulants; J44.9 Chronic obstructive pulmonary disease, unspecified; Z86.711 Personal history of pulmonary embolism; E11.9 Type 2 diabetes mellitus without complications; Q23.81 Bicuspid aortic valve; Z86.73 Personal history of transient ischemic attack (TIA), and cerebral infarction without residual deficits; F06.70 Mild neurocognitive disorder due to known physiological condition without behavioral disturbance; G47.33 Obstructive sleep apnea (adult) (pediatric); R91.8 Other nonspecific abnormal finding of lung field; G40.909 Epilepsy, unspecified, not intractable, without status epilepticus; E87.6 Hypokalemia; Z79.4 Long term (current) use of insulin; Z87.09 Personal history of other diseases of the respiratory system; Z79.899 Other long term (current) drug therapy; I48.91 Unspecified atrial fibrillation; E78.5 Hyperlipidemia, unspecified; F41.9 Anxiety disorder, unspecified; M06.9 Rheumatoid arthritis, unspecified
CPT/HCPCS: 36415; 36573; 71045; 71275; 76705; 80048; 80053; 80074; 80076; 80164; 80165; 81001; 82803; 82962; 83036; 83605; 83735; 83880; 84100; 84132; 84439; 84443; 84484; 85025; 85027; 85379; 86140; 87040; 87081; 87086; 87631; 92526; 92610; 93005; 93306; 94660; 94761; 97110; 97116; 97162; 97165; 97530; 97535; 99284; 99291; A9270; C1751; J1720; J1938; J2060; J2470; J2543; J3375; J7050; Q9957; Q9967

== ENCOUNTER 2025-08-18 14:59 | Outpatient (CLI) | payer OTHER, SELFPAY | END 2025-08-18 15:00 | disposition home or self-care (01) | LOC: AMB 08-23 10:42 | PROVIDERS: Visit Provider Student in an Organized Health Care Education/Training Program | DX: R53.1 Weakness (principal); R51.9 Headache, unspecified; R10.9 Unspecified abdominal pain | CPT/HCPCS: A0425; A0427 ==

== ENCOUNTER 2025-08-18 15:48 | Inpatient (IN) | payer OTHER, SELFPAY ==
--- OUTSIDE RECORDS SUMMARY | 2013-06-30 03:00 | XMS_ITS | Continuity of Care Document ---
Author Organization [facility]IZABETH [facility]son Address [address] [place] [address] Phone Care Team Providers [employer] Team Member Name Role Phone Rosi HERRERA ROLLER HAND, Paula Unavailable Unav ailable Procedures Procedure Date Offic/outpt E&m Estab Low-[facility] 3 Offic/outpt E&m Estab Mod-tx 2 13 Offic/outpt E&m Estab [place] 2 13 Offic/outpt E&m Estab Low-mod 3 Offic/outpt E&m Estab Mod Offic/outpt E&m Estab Mod Offic/outpt E&m Estab Mod Inj Anes Facet Jt; Lumb/sac-1st Level De Offic/outpt E&m Estab Mod Inj-s I Jt Arthrog &/ Anes/shanice 12 Offic/outpt E&m Estab [place] 2 12 Offic/outpt E&m Estab Mod Inj-s I Jt Arthrog &/ Anes/shanice 12 Offic/outpt E&m Estab Mod Inj Anes Facet Jt; Lumb/sac-1st Level Ju Offic/outpt E&m Estab Mod Offic/outpt E&m Estab Mod Offic/outpt E&m Estab Mod Offic/outpt E&m Estab Mod Offic/outpt E&m Estab Mod Offic/outpt E&m Estab Low Offic/outpt E&m Estab Low Offic/outpt E&m Estab Mod Offic/outpt E&m Estab Mod Offic/outpt E&m Estab Mod-hi 2 11 Offic/outpt E&m Estab Low Offic/outpt E&m Estab Low Offic/outpt E&m Estab Mod Offic/outpt E&m Estab Mod Offic/outpt E&m Estab Low Offic/outpt E&m Estab Low Offic/outpt E&m Estab Mod Offic/outpt E&m Estab Mod Offic/outpt E&m Estab Mod Offic/outpt E&m New Mod S Advance Directives Directive Yes / No Effective Date File Name No Information Encounters Encounter Description Practice Location Reason(s) For Visit Diagnoses Date Provider Providers Copied on Encounter Offic/outpt E&m Estab Low-mod [facility], [facility], [address] [facility] [address], [place], [id number], tel:[phone] [facility] No Information 3 [facility] Paula. [address] [place], [address]. tel:[phone] Referring Provider: Marcelino Watson MD W, [address] [place] [address], [address]. tel:[phone] Offic/outpt E&m Estab Mod-hi 2 Kavon [facility], [address] [facility] [address], [place], [address], tel:[phone] [facility] No Information 3 [facility]LLER [facility] Paula. [address] [place], [address]. tel:[phone] Referring Provider: Marcelino Watson MD W, [address] [place], [address]. tel:[phone] Offic/outpt E&m Estab Mod-hi 2 K[facility]on, [facility], [address] [facility] [address], [place], [place], [address], tel:[phone] [facility] No Information 3 [facility] Paula. [address] [place], [address]. tel:[phone] Referring Provider: Marcelino Watson MD W, [address] [place] [address], [address]. tel:[phone] Offic/outpt E&m Estab Low-mod K[facility]on, [facility], [address] [facility] [address], [place], [place], [address], tel:[phone] [facility] No Information 3 [facility] ROLL[facility] HAND Paula. [address] [place], [address]. tel:[phone] Referring Provider: Marcelino Watson MD W, [address] [place] [address], [address]. tel:[phone] Offic/outpt E&m Estab [facility], [facility], [address] [facility] [address], [place], [place], [address], [place] tel:[phone] [facility] No Information 3 [facility] Paula. [address] [place], [address]. tel:[phone] Referring Provider: Marcelino Watson MD W, [address] [place], [address]. tel:[phone] Offic/outpt E&m Estab [facility], [facility], [address] [facility] [address], [place], [place], [address], [place] tel:[phone] [facility] No Information 3 [facility] ROLLER HAND Paula. [address] [place], [address]. tel:[phone] Referring Provider: Marcelino Watson MD W, [address] [facility], [place], [address]. tel:[phone] Offic/outpt E&m [facility], [facility], [address], [place], [place], [address], [place] tel:[phone] [facility] No Information 3 [facility] Paula. [address], [place], [address]. tel:[phone] Referring Provider: Marcelino Watson MD W, [address] [facility], [place], [address]. tel:[phone] [facility], [facility], [address], [place], [place], [id number], [place] tel:[phone] [facility] No Information 2 No Information Referring Provider: Marcelino Watson MD W, [address] [facility], [place], [address]. tel:[phone] Offic/outpt E&m [facility], [facility], [address], [place], [place], [address], [place] tel:[phone] [facility] No Information 2 [facility] ROLL[facility] HAND Paula. [address] [place], [address]. tel:[phone] Referring Provider: Marcelino Watson MD W, [address] [facility], [place], [address]. tel:[phone] [facility], [facility], [address], [place], [place], [address], tel:[phone] [facility] No Information 2 No Information Referring Provider: Marcelino Watson MD W, [address] [place] [address], [address]. tel:[phone] Offic/outpt E&m Estab Mod-hi 2 [facility], [address], [place], [place], [address], tel:[phone] [facility] No Information 2 [facility] Paula. [address] [facility], [place], [address]. tel:[phone] Referring Provider: Marcelino Watson MD W, [address] [place] [address], [address]. tel:[phone] Offic/outpt E&m Estab [facility], [facility], [address], [place], [place], [id number], tel:[phone] [facility] No Information 2 [facility] ROLLER HAND Paula. [address] [facility], [place], [address]. tel:[phone] Referring Provider: Marcelino Watson MD W, [address] [place], [address]. tel:[phone] [facility], [facility], [address], [place], [place], [address], tel:[phone] [facility] No Information 2 No Information Referring Provider: Marcelino Watson MD W, [address] [place], [address]. tel:[phone] Offic/outpt E&m Estab [facility], [facility], [address], [place], [place], [address], tel:[phone] [facility] No Information Yanet Da Silva. [address] [place], [address]. tel:[phone] Referring Provider: Marcelino Watson MD W, [address] [place] [address], [address]. tel:[phone] [facility], [facility], [address], [place], [place], [address], tel:[phone] [facility] No Information 2 No Information Referring Provider: Marcelino Watson MD W, [address] [place] [address], [address]. tel:[phone] Offic/outpt E&m Estab [facility], [facility], [address], [place], [place], [address], tel:[phone] [facility] No Information 2 Yanet Da Silva. [address] [place], [address]. tel:[phone] Referring Provider: Marcelino Watson MD W, [address] [place] [address], [address]. tel:[phone] Offic/outpt E&m Estab [facility] K[facility]on, [facility], [address], [place], [place], [address], tel:[phone] [facility] No Information 2 Yanet Da Silva. [address] [place], [address]. tel:[phone] Referring Provider: Marcelino Watson MD W, [address] [place] [address], [address]. tel:[phone] Offic/outpt E&m Estab [facility], [facility], [address], [place], [place], [address], tel:[phone] [facility] No Information 2 Klondike WOODY-Alejandrina Coxa. [address] [place], [address]. tel:[phone] Referring Provider: Marcelino Watson MD W, [address] [place] [address], [address]. tel:[phone] Offic/outpt E&m [facility], [address] [facility] [address], [place], [address], tel:[phone] [facility] No Information 2 Yanet Coxa. [address] [place], [address]. tel:[phone] Referring Provider: Marcelino Watson MD W, [address] [place] [address], [address]. tel:[phone] Offic/outpt E&m [facility], [address] [facility] [address], [place], [address], tel:[phone] [facility] No Information 2 Yanet Da Silva. [address] [place], [address]. tel:[phone] Referring Provider: Marcelino Watson MD W, [address] [place] [address], [address]. tel:[phone] Offic/outpt E&m [facility], [address] [facility] [address], [place], [place], [address], [place] tel:[phone] [facility] No Information 2 Yanet Da Silva. [address] [place], [address]. tel:[phone] Referring Provider: Marcelino Watson MD W, [address] [place] [address], [address]. tel:[phone] Offic/outpt E&m Estab Low [facility], [facility], [address] [facility] [address], [place], [place], [address], tel:[phone] [facility] No Information 1 Yanet Da Silva. [address] [place], [address]. tel:[phone] Referring Provider: Marcelino Watson MD W, [address] [place] [address], [address]. tel:[phone] Offic/outpt E&m Estab [facility], [facility], [address], [id number], tel:[phone] [facility] No Information 1 Yanet Da Silva. [address] [place], [address]. tel:[phone] Referring Provider: Marcelino Watson MD W, [address] [place] [address], [address]. tel:[phone] Offic/outpt E&m Estab [facility], [facility], [address] [address], [place], [place], [address], tel:[phone] [facility] No Information 1 Yanet Da Silva. [address] [place], [address]. tel:[phone] Referring Provider: Marcelino Watson MD W, [address] [place] [address], [address]. tel:[phone] Offic/outpt E&m Estab Mod-hi 2 [facility], [facility], [address] [facility] [address], [place], [place], [address], tel:[phone] [facility] No Information 1 Yanet Da Silva. [address] [facility], [place], [address]. tel:[phone] Referring Provider: Marcelino Watson MD W, [address] [facility], [place], [address]. tel:[phone] Offic/outpt E&m Estab Low LILY [facility]son, [address], [place], [place], [address], [place] tel:[phone] [facility] No Information 1 Budnick Brenda. [address], [address], [place], [place], [address], [place]. tel:[phone] Referring Provider: Marcelino Watson MD W, [address] [facility], [place], [address]. tel:[phone] LILY Jacobson, [address], [place], [place], [address], [place] tel:[phone] [facility] No Information 1 Budnick Brenda. [address], [address], [place], [place], [address], [place]. tel:[phone] Referring Provider: Marcelino Watson MD W, [address] [facility], [place], [address]. tel:[phone] LILY Jacobson, [address], [place], [place], [address], [place] tel:[phone] [facility] No Information 1 Budnick Brenda. [address], [address], [place], [place], [address], [place]. tel:[phone] Referring Provider: Marcelino Watson MD W, [address] [facility], [place], [address]. tel:[phone] LILY Jacobson, [address], [place], [place], [address], [place] tel:[phone] [facility] No Information 1 Budnick Brenda. [address], [place], [place], [address], [place]. tel:[phone] Referring Provider: Marcelino Watson MD W, [address], [place], [address]. tel:[phone] [facility], [address], [place], [place], [address], [place] tel:[phone] [facility] No Information 1 Budnick Brenda. [address], [address], [place], [place], [address], [place]. tel:[phone] Referring Provider: Marcelino Watson MD W, [address] [facility] [address], [place], [address]. tel:[phone] [facility], [address], [place], [place], [address], [place] tel:[phone] [facility] No Information 0 Budnick Brenda. [address], [address], [place], [place], [address], [place]. tel:[phone] Referring Provider: Marcelino Watson MD W, [address], [place], [address]. tel:[phone] [facility], [address], [place], [place], [address], [place] tel:[phone] [facility] No Information 0 Budnick Brenda. [address], [address], [place], [place], [address], [place]. tel:[phone] Referring Provider: Marcelino Watson MD W, [address], [place], [address]. tel:[phone] [facility], [address], [place], [place], [address], [place] tel:[phone] [facility] No Information 1-201 0 Budnick Brenda. [address], [address], [place], [place], [address], [place]. tel:[phone] Referring Provider: Marcelino Castaneda, [address] [place] [address], [address]. tel:[phone] [facility], [address], [place], [place], [address], tel:[phone] [facility] No Information 201 0 Budnick Brenda. [address] , [address], [place], [place], [address], [place]. tel:[phone] Referring Provider: Marcelion Castaneda, [address] [place] [address], [address]. tel:[phone] [facility], [address], [place], [place], [address], tel:[phone] [facility] No Information 0-201 0 Budnick Brenda. [address] , [address], [place], [place], [address], [place]. tel:[phone] Referring Provider: Marcelino Castaneda, [address] [place] [address], [address]. tel:[phone] Family History Family Member Type Diagnosis Age At Onset No Information Payers Payer name Insurance type Covered green party ID Ethan almazan(s) [employer] [place] [id number] Social History Type Description Quantity Date Captured Comments Sex Female Smoking Status No Information Chief Complaint And Reason For Visit No Information Reason For Referral Reason For Referral No Information History Of Present Illness Encounter Date Complaint History Of Prese nt Illness No Information Functional Status Date Functional Assessmen t No Information Instructions Date Instruction Additional Infor mation No Information Assessments Type Assessment Date No Information Patient Care Teams Name Effective Dates (start - stop) Status Members No Information
--- OUTSIDE RECORDS SUMMARY | 2013-06-30 03:00 | XMS_ITS | Continuity of Care Document ---
Author Organization [facility]IZAB[facility]son Address [address] [facility] [address] [place] [address] Phone Care Team Providers Care Assessment Consultant Name Role Phone Rosi HERRERA AUTO ELECTRICAL TECHNICIAN, Paula Unavailable Unav ailable Procedures Procedure Date Offic/outpt E&m Estab Low-[facility] 3 Offic/outpt E&m Estab Mod-ne 2 13 [facility] Offic/outpt E&m Estab Low-mod 3 Offic/outpt E&m Estab Mod Offic/outpt E&m Estab Mod Offic/outpt E&m Estab Mod Inj Anes Facet Jt; Lumb/sac-1st Level De Offic/outpt E&m Estab Mod Inj-s I Jt Arthrog &/ Anes/shanice 12 Offic/[facility]pt [facility] Offic/outpt E&m Estab Mod Inj-s [...] on Encounter Offic/outpt E&m Estab Low-mod [facility], [facility], [address] [facility] [address], [place], [id number], tel:[phone] [facility] No Information 3 [facility] Paula. [address] [place], [address]. tel:[phone] Referring Provider: Marcelino Watson MD W, [address] [place] [address], [address]. tel:[phone] Offic/outpt E&m Estab Mod-hi [address] [facility], [address] [facility] [address], [place], [address], tel:[phone] [facility] No Information 3 [facility] AUTO ELECTRICAL TECHNICIAN Paula. [address] [place], [address]. tel:[phone] Referring Provider: Marcelino Watson MD W, [address] [place], [address]. tel:[phone] Offic/outpt E&m Estab Mod-hi 2 [facility], [facility], [address] [facility] [address], [place], [place], [address], tel:[phone] [facility] No Information [address] [facility] [facility] AUTO ELECTRICAL TECHNICIAN Paula. [address] [place], [address]. tel:[phone] Referring Provider: Marcelino Watson MD W, [address] [place] [address], [address]. tel:[phone] Offic/outpt E&m Estab Low-mod [facility], [facility], [address] [facility] [address], [place], [place], [address], tel:[phone] [facility] No Information [address] [facility] AUTO ELECTRICAL TECHNICIAN Paula. [address] [place], [address]. tel:[phone] Referring Provider: Marcelino Watson MD W, [address] [place] [address], [address]. tel:[phone] Offic/outpt E&m Estab [facility], [facility], [address] [facility] [address], [place], [place], [address], [place] tel:[phone] [facility] No Information [address] [facility] AUTO ELECTRICAL TECHNICIAN Paula. [address] [place], [address]. tel:[phone] Referring Provider: Marcelino Watson MD W, [address] [place], [address]. tel:[phone] Offic/outpt E&m Estab [facility], [facility], [address] [facility] [address], [place], [place], [address], [place] tel:[phone] [facility] No Information 3 [facility] AUTO ELECTRICAL TECHNICIAN Paula. [address] [place], [address]. tel:[phone] Referring Provider: Marcelino Watson MD W, [address] [facility], [place], [address]. tel:[phone] [facility]pt [facility], [address], [place], [place], [address], [place] tel:[phone] [facility] No Information 3 [facility] AUTO ELECTRICAL TECHNICIAN Paula. [address], [place], [address]. tel:[phone] Referring Provider: Marcelino Watson MD W, [address] [facility], [place], [address]. tel:[phone] [facility], [facility], [address], [place], [place], [address], [place] tel:[phone] [facility] No Information 2 No Information Referring Provider: Marcelino Watson MD W, [address] [facility], [place], [address]. tel:[phone] Offic[facility]outpt E[facility], [address], [place], [place], [address], [place] tel:[phone] [facility] No Information [address] [facility] AUTO ELECTRICAL TECHNICIAN Paula. [address] [place], [address]. tel:[phone] Referring Provider: Marcelino Watson MD W, [address] [facility], [place], [address]. tel:[phone] [facility], [facility], [address], [place], [place], [address], tel:[phone] [facility] No Information 2 No Information Referring Provider: Marcelino Watson MD W, [address] [place] [address], [address]. tel:[phone] Offic/outpt E&m Estab Mod-hi 2 [facility], [address], [place], [place], [address], tel:[phone] [facility] No Information [address] [facility] [facility] AUTO ELECTRICAL TECHNICIAN Paula. [address] [facility], [place], [address]. tel:[phone] Referring Provider: Marcelino Watson MD W, [address] [place] [address], [address]. tel:[phone] Offic/outpt E&m Estab [facility], [facility], [address], [place], [place], [address], tel:[phone] [facility] No Information 2 [employer] AUTO ELECTRICAL TECHNICIAN Paula. [address] [facility] [place], [address]. tel:[phone] Referring Provider: Marcelino Watson MD W, [address] [place], [address]. tel:[phone] [facility], [facility], [address], [place], [place], [address], tel:[phone] [facility] No Information 2 No Information Referring Provider: Marcelino Watson MD W, [address] [place], [address]. tel:[phone] Offic/outpt E&m Estab [facility], [facility], [address], [place], [place], [address], tel:[phone] [facility] No Information Yanet Da Silva. [address] [place], [address]. tel:[phone] Referring Provider: Marcelino Watson MD W, [address] [place] [address], [address]. tel:[phone] [facility], [facility], [address], [place], [place], [address], tel:[phone] [facility] No Information 2 No Information Referring Provider: Marcelino Watson MD W, [address] [place] [address], [address]. tel:[phone] Offic/outpt E&m Estab [facility], [facility], [address], [place], [place], [address], tel:[phone] [facility] No Information 2 Yanet Da Silva. [address] [place], [address]. tel:[phone] Referring Provider: Marcelino Watson MD W, [address] [place] [address], [address]. tel:[phone] Offic/outpt E&m Estab [facility], [facility], [address], [place], [place], [address], tel:[phone] [facility] No Information 2 Yanet Da Silva. [address] [place], [address]. tel:[phone] Referring Provider: Marcelino Watson MD W, [address] [place] [address], [address]. tel:[phone] Offic/outpt E&m Estab [facility], [facility], [address], [place], [place], [address], tel:[phone] [facility] No Information 2 Fulford WOODY-Alejandrina Coxa. [address] [place], [address]. tel:[phone] Referring Provider: Marcelino Watson MD W, [address] [place] [address], [address]. tel:[phone] Offic/outpt E&m [facility], [address] [facility] [address], [place], [address], tel:[phone] [facility] No Information 2 Yanet Coxa. [address] [place], [address]. tel:[phone] Referring Provider: Marcelino Watson MD W, [address] [place] [address], [address]. tel:[phone] Offic/outpt E&m [facility], [address] [facility] [address], [place], [address], tel:[phone] [facility] No Information 2 Yanet Da Silva. [address] [place], [address]. tel:[phone] Referring Provider: Marcelino Watson MD W, [address] [place] [address], [address]. tel:[phone] Offic/outpt E&m [facility], [address] [facility] [address], [place], [place], [address], [place] tel:[phone] [facility] No Information 2 Yanet Da Silva. [address] [place], [address]. tel:[phone] Referring Provider: Marcelino Watson MD W, [address] [place] [address], [address]. tel:[phone] Offic/outpt E&m Estab [facility], [facility], [address] [facility] [address], [place], [place], [address], tel:[phone] [facility] No Information 1 Yanet DaS ilva. [address] [place], [address]. tel:[phone] Referring Provider: Marcelino Watson MD W, [address] [place] [address], [address]. tel:[phone] Offic/outpt E&m Estab [facility], [facility], [address], [id number], tel:[phone] [facility] No Information 1 Yanet Da Silva. [address] [place], [address]. tel:[phone] Referring Provider: Marcelino Watson MD W, [address] [place] [address], [address]. tel:[phone] Offic/outpt E&m Estab [facility], [facility], [address] [address], [place], [place], [address], tel:[phone] [facility] No Information 1 Yanet Da Silva. [address] [place], [address]. tel:[phone] Referring Provider: Marcelino Watson MD W, [address] [place] [address], [address]. tel:[phone] Offic/outpt E&m Estab Mod-hi 2 [facility], [facility], [address] [facility] [address], [place], [place], [address], tel:[phone] [facility] No Information 1 Yanet Da Silva. [address] [facility], [place], [address]. tel:[phone] Referring Provider: Marcelino Watson MD W, [address] [facility], [place], [address]. tel:[phone] Offic/outpt E&m Estab Low LILY [facility], [address], [place], [place], [address], [place] tel:[phone] [facility] No Information 1 Budnick Brenda. [address], [place], [place], [address], [place]. tel:[phone] Referring Provider: Marcelino Watson MD W, [address] [facility], [place], [address]. tel:[phone] LILY [facility]son, [address], [place], [place], [address], [place] tel:[phone] [facility] No Information 1 Budnick Brenda. [address], [place], [place], [address], [place]. tel:[phone] Referring Provider: Marcelino Watson MD W, [address] [facility], [place], [address]. tel:[phone] LILY [facility]son, [address], [place], [place], [address], [place] tel:[phone] [facility] No Information 1 Budnick Brenda. [address], [place], [place], [address], [place]. tel:[phone] Referring Provider: Marcelino Watson MD W, [address] [facility], [facility] [place], [address]. tel:[phone] LILY Jacobson, [address], [place], [place], [address], [place] tel:[phone] [facility] No Information 1 Budnick Brenda. [address], [place], [place], [id number], [place]. tel:[phone] Referring Provider: Marcelino Watson MD W, [address], [place], [address]. tel:[phone] [facility], [address], [place], [place], [address], [place] tel:[phone] [facility] No Information 1 Budnick Brenda. [address], [place], [place], [address], [place]. tel:[phone] Referring Provider: Marcelino Watson MD W, [address] [facility] [address], [facility], [address]. tel:[phone] [facility], [address], [place], [place], [address], [place] tel:[phone] [facility] No Information 0 Budnick Brenda. [address], [place], [place], [address], [place]. tel:[phone] Referring Provider: Marcelino Watson MD W, [address], [place], [address]. tel:[phone] [facility], [address], [place], [place], [address], [place] tel:[phone] [facility] No Information 0 Budnick Brenda. [address], [place], [place], [address], [place]. tel:[phone] Referring Provider: Marcelino Watson MD W, [address], [place], [address]. tel:[phone] [facility], [address], [place], [place], [address], [place] tel:[phone] [facility] No Information 1-201 0 Budnick Brenda. [address], [place], [place], [address], [place]. tel:[phone] Referring Provider: Marcelino Castaneda, [address] [place] [address], [address]. tel:[phone] [facility], [address], [place], [place], [address], tel:[phone] [facility] No Information 201 0 Budnick Brenda. [address] , [address], [place], [place], [address], [place]. tel:[phone] Referring Provider: Marcelino Castaneda, [address] [place] [address], [address]. tel:[phone] [facility], [address], [place], [place], [address], tel:[phone] [facility] No Information 0-201 0 Budnick Brenda. [address] , [address], [place], [place], [address], [place]. tel:[phone] Referring Provider: Marcelino Castaneda, [address] [place] [address], [address]. tel:[phone] Family History Family Member Type Diagnosis Age At Onset No Information Payers Payer name Insurance type Covered republican ID Ethan almazan(s) [employer] [place] [id number] Social History Type Description Quantity Date Captured [...]
[2025-08-18] VITALS (53 sets, daily range): BP systolic 81–122; BP diastolic 22–73; PULSE 0–57; RESP 12–28; TEMP 36.4–36.7; O2SAT 82–97; BMI 38.1; BMI 36.8
--- OUTSIDE RECORDS SUMMARY | 2025-08-18 15:51 | XMS_ITS | Clinical Summary ---
Author Organization [employer] [facility] Address [address] [place] [id number] Care Team Providers Care Senior Planning Analyst Name Role Phone [facility], [place] Unavailable [phone] Nini Best Primary Care Provider Unavailab le Allergies Active Allergy Reactions Criticality Noted Date Comments Alcohol *Unknown 06/29/2025 per physician order review. Aspirin, Buffered High 08/27/2010 G.I Bleed. Bupropion *Unknown 06/29/2025 per physician order review. Codeine High 08/27/2010 Triggers a migraine headache. [place] Angioedema 07/08/2022 Estrogens *Unknown 06/29/2025 per physician order review. Hydrocodone *Unknown 06/29/2025 per physician order review. Hydroxyzine *Unknown 06/29/2025 per physician order review. Lactase 08/27/2010 G.I . Upset./Rash Levofloxacin Rash High 08/27/2010 Mirtazapine *Unknown 06/29/2025 per physician order review. Nsaids (Non-Steroidal Anti-Inflammatory Drug) High 08/27/2010 G.I bleed Sulfamethoxazole-Trimethopr im Anaphylaxis High 08/27/2010 Rash, hives Sumatriptan High 08/27/2010 Made her H/A worse. Medications montelukast (SINGULAIR) 10 mg tablet Take 10 mg by mouth once daily. 0 08/27/20 10 Active Senna Plus 8.6-50 mg tabletIndications: constipation Take 1 Tablet by mouth once daily if needed for Constipation. 05/04/20 25 Active omeprazole (PRILOSEC) 40 mg Delayed-Release capsuleIndications :gastroesophageal reflux disease Take 40 mg by mouth two times daily. 06/10/20 Active Daily-Tiffanie tablet Take 1 Tablet by mouth once daily. 01/07/20 Active hydrocortisone (CORTEF) 10 mg tabletIndications: primary adrenocortical insufficiency Take 10 mg by mouth once daily. 06/10/20 Active fluticasone (50 mcg per actuation) nasal solution (FLONASE) Inhale 2 Sprays into affected nostril(s) once daily. 06/25/20 Active ergocalciferol (VITAMIN D2; DRISDOL) 50,000 unit capsule Take 50,000 units by mouth every Friday. 06/10/20 Active diclofenac topical (VOLTAREN) 1 % gel Apply 2 g topically to affected area(s) four times daily. To bilateral hips. 01/26/20 Active acetaminophen (TYLENOL) 325 mg tablet Take 325 mg by mouth three times daily. 7:00 am, 1:00pm and 7:00pm 06/10/20 Active lidocaine 4 % topical patch Apply 1 Patch on dry, clean, hairless skin once daily. 1 patch 1 time per day every day at 7 am Apply patch to lower back. On for 12 hours, off for 12 hours. 06/10/20 Active melatonin 5 mg tab tablet Take 5 mg by mouth at bedtime. Active rosuvastatin (CRESTOR) 20 mg tabletIndications: Acute on chronic congestive heart failure, unspecified heart failure type (HC) Take 1 Tablet (20 mg) by mouth at bedtime. 10 Tablet 02/12/20 Active rimegepant (Nurtec ODT) 75 mg orally disintegrating tabletIndications: migraine Place 75 mg on the tongue once daily if needed for Headache. 05/04/20 Active cholecalciferol, Vitamin D3, 5,000 unit tab tablet Take 5,000 units by mouth once daily. Active apixaban (ELIQUIS) 5 mg tabletIndications: paroxysmal atrial fibrillation Take 5 mg by mouth two times daily. 06/10/20 Active gabapentin (NEURONTIN) 400 mg capsuleIndications :Lumbago with sciatica, right side Take 400 mg by mouth once daily. 06/10/20 Active fluticasone gst-cfufdtvigtpr-r ilanterol (Trelegy Ellipta) 100-62.5-25 mcg inhaler Inhale 1 Puff by mouth once daily. 08/15/20 Active sertraline (ZOLOFT) 25 mg tablet Take 25 mg by mouth once daily. 10/15/20 Active acetaminophen (TYLENOL) 325 mg tablet Take 325 mg by mouth each time if needed for Pain. 1 tablet by mouth as needed every 8 hours for back pain. 06/10/20 Active amiodarone (CORDARONE) 200 mg tabletIndications: paroxysmal atrial fibrillation Take 200 mg by mouth once daily. Indications: paroxysmal atrial fibrillation 06/10/20 Active ammonium lactate 12 % cream Apply 1 unit topically to affected area(s) two times daily. apply to affected areas. 06/10/20 Active levothyroxine (SYNTHROID) 25 mcg tabletIndications: hypothyroidism Take 25 mcg by mouth once daily. Indications: a condition with low thyroid hormone levels 06/10/20 Active empagliflozin (Jardiance) 10 mg tabletIndications: type 2 diabetes mellitus Take 10 mg by mouth once daily. Indications: type 2 diabetes mellitus 06/10/20 Active levalbuterol (XOPENEX) 1.25 mg/3 mL nebulizer solution Inhale 1 Neb via a nebulizer 4 times daily if needed for Shortness Of Breath. 06/10/20 Active Calcium-Cholecalci ferol (D3) 600 mg-10 mcg (400 unit) chew Chew 1 Tablet by mouth two times daily. 1 tablet 2 times per day. 06/10/20 Active metoprolol tartrate (LOPRESSOR) 37.5 mg tabletIndications: ventricular rate control in atrial fibrillation Take 37.5 mg by mouth two times daily. Indications: ventricular rate control in atrial fibrillation 06/27/20 Active naloxone (NARCAN) 4 mg/actuation nasal spray Inhale 1 [place] into affected nostril(s) each time if needed (overdose). 1 spray into nose as needed. CALL NURSE FIRST. 06/10/20 Active cyanocobalamin (VITAMIN B12) 500 mcg tablet Take 500 mcg by mouth once daily. 06/10/20 Active polyethylene glycoL (MIRALAX) 17 gram/scoop powderIndications: constipation Mix 17 g in liquid then take by mouth once daily if needed for Constipation. Indications: constipation 06/10/20 Active potassium chloride (MICRO-K) 10 mEq Controlled-release capsule Take 10 mEq by mouth once daily. 06/10/20 Active traMADoL (ULTRAM) 50 mg tabletIndications: pain Take 0.5 Tablets by mouth every 12 hours if needed for Pain. Indications: pain 06/10/20 Active sodium chloride (OCEAN) 0.65 % nasal solutionIndication s:Dysfunction of both eustachian tubes Inhale 1 [place] in both nostrils two times daily. Indications: Dysfunction of both eustachian tubes 06/10/20 Active tiotropium bromide (Spiriva Respimat) 2.5 mcg/actuation mist for inhalation Inhale 2 Puffs by mouth once daily. 06/10/20 Active calcium carbonate (Tums) 200 mg calcium (500 mg) chewable tablet Chew 500 mg by mouth every 6 hours if needed for Heartburn. 06/10/20 Active vitamin B complex (B-COMPLEX VITAMIN) tablet Take 1 Tablet by mouth once daily. 06/10/20 Active ascorbic acid (vitamin C) (Vitamin C) 1,000 mg tablet Take 1,000 mg by mouth two times daily. 06/10/20 Active guaFENesin 200 mg/5 mL liqdIndications:co ugh Take 10 mL by mouth every 4 hours if needed (cough). Indications: cough 05/04/20 Active hydrocortisone (CORTEF) 10 mg tabletIndications: primary adrenocortical insufficiency Take 5 mg by mouth once daily in the evening. 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 Indications: type 2 diabetes mellitus 06/27/20 Active torsemide (DEMADEX) 20 mg tabletIndications: edema Take 60 mg by mouth once daily. Indications: visible water retention 07/22/20 Active divalproex (DEPAKOTE) 500 mg Delayed-Release tabletIndications: epilepsy Take 4 Tablets by mouth at bedtime. 2000mg dose daily total Indications: epilepsy 06/10/20 Active Active Problems Problem Noted Date Diagnosed Date Class 2 severe obesity with serious comorbidity in adult 11/08/2023 Pneumonia of right lower lobe due to infectious organism 11/07/2023 Acute hypernatremia 08/03/2022 Chronic diastolic CHF (congestive heart failure) 08/03/2022 Atrial fibrillation with RVR 08/03/2022 COPD on long-term inhaled steroid therapy 2021 Chronic hypoxemic respiratory failure 07/08/2022 Cellulitis of both lower extremities 07/08/2022 ACP (advance care planning) 02/26/2022 Overview (02/26/2022): Patient has identified Specific Treatment Preferences: Yes How have preferences been verified: STEPHANIE Specific Treatment Preferences: a.) Code Status: CPR/Attempt Resuscitation b.) Goals of Treatment: i. Full Treatment: Use intubation, advanced airway interventions, and mechanical ventilation as indicated. Transfer to hospital and/or intensive care unit if indicated. All patients will receive comfort-focused treatments. TREATMENT PLAN: Full treatment including life support measures in the intensive care unit. c.) Interventions and Treatments: i. Artificially Administered Nutrition and Hydration: defined trial period of artificial nutrition by tube ii. Antibiotics: - Use IV/IM antibiotic treatment Manually signed by Samantha Levine RN & Gemini Wang on 02/26/2022. 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 02/23/2020 Hypotension 11/20/2018 Secondary adrenal insufficiency 01/02/2017 Paroxysmal atrial fibrillation 10/17/2016 PTSD (post-traumatic stress disorder) 04/09/2016 Anxiety 11/07/2015 Resolved Problems Problem Noted Date Diagnosed Date Resolved Date Asthma 01/31/2022 08/03/2022 Encounters Date Type Department Care Team Description 08/17/2025 Home Care Visit [facility] [address] [place] [address] Jeff Jung, OT OT - REASSESSMENT 08/16/2025 Home Care Visit [facility] [address] [place] [address] Mia Glynn CARE COORDINATION 08/11/2025 Home Care Visit [facility] [address] [place] [address], [place] [address] Jeff Jung, OT CARE COORDINATION 08/11/2025 Home Care Visit [facility] [address] [place] [address], [place] [address] Jeff Jung, OT CARE COORDINATION 08/09/2025 4:30 AM CDT Home Care Visit [facility] [address] [place] [address], [place] [address] Jeff Jung, OT OT - EDEMA/LYMPHEDEMA HOME VISIT 08/02/2025 4:00 PM CDT Home Care Visit [facility] [address] [place] [address], [place] [address] Malinda Pillai, OCONNELL OT - HOME VISIT 08/01/2025 Lab Requisition [facility] [phone] Virginia Lara HAND TOOL FILER 07/29/2025 9:00 AM CDT Home Care Visit [facility] [address] [place] [address], [place] [address] Malinda Pillai, OCONNELL OT - HOME VISIT 07/29/2025 Home Care Visit [facility] [address] [place] [address], [place] [address] Malinda Pillai, OCONNELL CARE COORDINATION 07/22/2025 11:00 AM CDT Home Care Visit [facility] [address] [place] [address], [place] [address] Mag Haq, RN SN - DISCIPLINE DISCHARGE 07/22/2025 Plan of Care Documentation [facility] [address] [place] [address], [place] [address] 07/21/2025 3:15 PM CDT Home Care Visit [place] [address] [facility] [address] Aaliyah Gonzalez, PT PT - DISCIPLINE DISCHARGE 07/21/2025 1:00 PM CDT Home Care Visit [facility] [address] [place] [address] Jeff Jung, OT OT - OASIS RECERTIFICATION 07/15/2025 9:00 AM CDT Home Care Visit [facility] [address] [place] [address], [place] [address] Aaliyah Gonzalez, PT PT - HOME VISIT 07/15/2025 Home Care Visit [facility] [address] [place] [address], [place] [address] Aaliyah Gonzalez, PT CARE COORDINATION 07/13/2025 1:15 PM CDT Home Care Visit [facility] [address] [place] [address] Malinda Pillai COTA OT - HOME VISIT 07/13/2025 Home Care Visit [facility] [address] [place] [address], [place] [address] Malinda Pillai OCONNELL CARE COORDINATION 07/12/2025 1:00 PM CDT Home Care Visit [facility] [address] [place] [address], [place] [address] Mag Haq RN SN - HOME VISIT 07/08/2025 1:00 PM CDT Home Care Visit [facility] [address] [place] [address], [place] [address] Jeff Jung, OT OT - INITIAL ASSESSMENT 07/08/2025 8:45 AM CDT Home Care Visit [facility] [address] [place] [address], [place] [address] Aaliyah Gonzalez, PT PT - HOME VISIT 07/08/2025 Home Care Visit [facility] [address] [place] [address], [place] [address] Aaliyah Gonzalez, PT CARE COORDINATION 07/08/2025 Telephone [facility] [address] [place] [address] Henry Gentile, RN 07/07/2025 10:30 AM CDT Home Care Visit [facility] [address] [place] [address], [place] [address] Mag Haq, RIKI SN - HOME VISIT 07/07/2025 1:35 AM CDT Home Care Visit [facility] [address] [place] [address], [place] [address] Henry Gentile, RN SN - WOUND/OSTOMY CHART CONSULT 07/07/2025 Orders Only [facility] [address] [place] [address] Mag Haq RN <No scans attached> 07/07/2025 Home Care Visit [facility] [address] [place] [address], [place] [phone] Mag Haq, RIKI CARE COORDINATION 07/02/2025 8:00 AM CDT Home Care Visit [facility] [address] [place] [address], [place] [address] Monique Mitchell, RIKI SN - INITIAL ASSESSMENT 06/30/2025 2:15 PM CDT Home Care Visit [facility] [address] [place] [address], [place] [address] Aaliyah Gonzalez, PT PT - HOME VISIT 06/30/2025 Lab Requisition [facility] [phone] Unknown, Doctor 06/29/2025 Home Care Visit [facility] [address] [place] [phone] Henry Nicholson, PT CARE COORDINATION 06/28/2025 2:15 PM CDT Home Care Visit [facility] [address] [place] [address], [place] [address] Henry Nicholson, PT PT - OASIS RESUMPTION OF CARE 06/28/2025 Home Care Visit [place] [address] [place] [phone] Nany Duong, RN CARE COORDINATION 06/24/2025 Home Care Visit [facility] [address] [facility] [address] Aaliyah Gonzalez, PT PT - OASIS TRANSFER 06/23/2025 Home Care Visit [facility] [address] [facility] [place] [address] Shanika Tinoco, PT CARE COORDINATION 06/21/2025 10:00 AM CDT Ancillary Procedure [facility] [address] [place] [address] 06/21/2025 Home Care Visit [facility] [address] [place] [address] Aaliyah Gonzalez, PT CARE TRANSITION NOTE 06/20/2025 Lab Requisition [facility] [phone] Virginia Lara NP 06/17/2025 8:45 AM CDT Home Care Visit [facility] [address] [place] [address] Aaliyah Gonzalez, PT PT - HOME VISIT 06/14/2025 9:15 AM CDT Home Care Visit [facility] [address] [place] [phone] Malinda Pillai COTA OT - HOME VISIT 06/14/2025 Home Care Visit [facility] [address] [place] [address] Malinda Pillai OCONNELL CARE COORDINATION 06/10/2025 8:30 AM CDT Home Care Visit [facility] [address] [place] [phone] Aaliyah Gonzalez, PT PT - HOME VISIT 06/10/2025 Home Care Visit [facility] [address] [place] [phone] Aaliyah Gonzalez, PT CARE COORDINATION 06/08/2025 1:00 PM CDT Home Care Visit [facility] [address] [facility] [place] [address] Malinda Pillai COTA OT - HOME VISIT 06/08/2025 Home Care Visit [facility] [address] [facility] [place] [address] Malinda Pillai OCONNELL CARE COORDINATION 06/06/2025 8:30 AM CDT Home Care Visit [facility] [address] [facility] [place] [address] Aaliyah Gonzalez, PT PT - HOME VISIT 06/03/2025 2:00 PM CDT Home Care Visit [facility] [address] [place] [place] [address] Aaliyah Gonzalez, PT PT - HOME VISIT 06/03/2025 Home Care Visit [facility] [address] [place] [address] Jeff Jung, OT OT - EDEMA/LYMPHEDEMA HOME VISIT 06/03/2025 Home Care Visit [facility] [address] [place] [address] Aaliyah Gonzalez, PT CARE COORDINATION 06/03/2025 Home Care Visit [facility] [address] [place] [address] Jeff Jung, OT CARE COORDINATION 06/02/2025 Home Care Visit [facility] [address] [place] [place] [address] Jeff Jung, OT CARE COORDINATION 06/01/2025 9:15 AM CDT Home Care Visit [facility] [address] [facility] [place] [address] Jeff Jung, OT OT - EDEMA/LYMPHEDEMA HOME VISIT 06/01/2025 Home Care Visit [facility] [address] [place] [address], [place] [address] Jeff Jung, OT CARE COORDINATION 06/01/2025 Travel 05/31/2025 3:30 PM CDT Home Care Visit [facility] [address] [place] [address], [place] [address] Henry Nicholson, PT PT - HOME VISIT 05/31/2025 Home Care Visit [facility] [address] [place] [address], [place] [address] Shanika Tinoco, PT CARE COORDINATION 05/31/2025 Home Care Visit [facility] [address] [place] [address], [place] [address] Jeff Jung, OT CARE COORDINATION 05/30/2025 Nurse Triage [facility] [address] [place] [address] Natalie Vasques Home Care 05/27/2025 6:00 AM CDT Home Care Visit [facility] [address] [place] [phone] Jeff Jung, OT OT - INITIAL ASSESSMENT 05/27/2025 Travel 05/25/2025 Plan of Care Documentation [facility] [address] [place] [phone] 05/24/2025 12:30 PM CDT Home Care Visit [facility] [address] [place] [phone] Shea Moya, PT PT - OASIS START OF CARE 05/24/2025 Transcribe Orders [facility] [address] [place] [phone] Kiana Dennis, COMPLAINT SPECIALIST, PRODUCTION TRUCK DRIVER from Last 3 Months Family History Medical History Relation Name Comments Diabetes Brother Heart attack Father of [place] Heart Disease Maternal Grandmother bicusp id aortic valve Relation Name Status Comments Brother Father Maternal Grandmother Social History Tobacco Use Types Packs/Day Years Used Date Smoking Tobacco: Every Day Cigarettes 0.3 23 Smokeless Tobacco: Never Comments:quit in 1996. Alcohol Use Standard Drinks/Week Comments No 0 (1 standard drink = 0.6 oz pur e alcohol) Only at holidays. Social Connections Answer Date Recorded Do you often feel lonely or isolated from those around you? 0 11/11/2023 Financial Resource Strain Answer Date R ecorded Difficulty of Paying Living Expenses 3 11/08/2023 Difficulty of Paying Living Expenses Not on file 11/08/2023 Food Insecurity Answer Date Recorded Do you worry your food will run out before you are able to buy more? 1 11/11/2023 Transportation Needs Answer Date Record ed Does lack of transportation keep you from medica l appointments? 1 11/11/2023 Does lack of transportation keep you from work, meetings or getting things that you need? 1 11/11/2023 Housing Stability Answer Date Recorded What is your housing situation today? 1 11/11/2023 Interpersonal Safety Answer Date Record ed Are you being hit, kicked, p ushed or yelled at (see row info)? No 05/06/2024 Interpersonal Safety Abuse 12 - 18 Not on file 05/06/2024 Interpersonal Safety Ambulatory Vulnerability No t on file 05/06/2024 Utilities Answer Date Recorded Do you have trouble paying f or utilities (for example, heat, electricity, water, phone)? 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 Gender Identity Not on file Sexual Orientation Not on file Obstetrics History Last Filed Vital Signs Vital Sign Reading Time Taken Comments Blood Pressure 102/61 08/17/2025 4:02 PM CDT Pulse 106 08/17/2025 4:02 PM CDT Temperature 36.4 C (97.6 F) 08/17/2025 4:02 PM CDT Respiratory Rate 16 08/17/2025 4:02 PM CDT Oxygen Saturation 93% 08/17/2025 4:0 2 PM CDT Inhaled Oxygen Concentration - - Weight 97.1 kg (214 lb) 07/22/2025 10:3 5 AM CDT patient reported Height 160 cm (5' 3) 05/06/2024 6:20 PM CDT Body Mass Index 37.91 05/06/2024 6:20 PM CDT Plan of Treatment Upcoming Encounters Date Type Department Care Team (Late st Contact Info) Description 08/25/2025 5:30 AM CDT Appointment [facility] [address] [place] [address] Jeff Jung, OT [address] [facility] [place] [address] 09/01/2025 4:30 AM CDT Appointment [facility] [address] [facility] [place] [phone] ErichAdarsh henrydavid, OT [address] [facility] [address] 09/08/2025 4:30 AM CDT Appointment [facility] [address] [facility] [place] [phone] Adarsh Jungdavid, OT [address] [facility] [place] [address] Health Maintenance Due Date Last Done Comments Tetanus booster 1968 Depression screening for age 12+ 1969 BMI (ht and wt on same day) for age 18+ 1975 Hepatitis C screening for age 18-79 1975 Pneumococcal series for age 50+ (1 of 2 - PCV) 1976 Colonoscopy through age 75 2002 Mammogram for age 45-75 2002 Zoster (shingles) series for age 50+ (1 of 2) 2007 RSV vaccine for adults or (1 - Risk 60-74 years 1-dose series) 2017 DEXA/DXA scan for age 65+ 2022 Medicare Wellness for age 65+ 2022 COVID-19 vaccine series (2023- season) 2025 08/11/2024, 09/24/2023, 10/28/2022, Additional history exists Influenza Vaccine (#1) 2025 Lipids for age 45-75 01/09/2028 01/09/2023, 02/02/20 22 Hepatitis B series for 19+ Aged Out N o longer eligible based on patient's age to complete this topic Procedures Procedure Name Priority Date/Time Associated Diagnosis Comments BASIC METABOLIC PANEL Routine 08/02/2025 10:34 AM CDT Chronic diastolic (congestive) heart failure (HC) CBC W PLT NO DIFF Routine 08/02/2025 10: 34 AM CDT Chronic diastolic (congestive) heart failure (HC) PRO-BNP Routine 08/02/2025 10:34 AM CDT Chronic diastolic (congestive) heart failure (HC) BASIC METABOLIC PANEL Routine 07/05/2025 10:20 AM CDT Heart failure, unspecified (HC) ECHO TTE COMPLETE W CONTRAST Routine 06/21/2025 10:16 AM CDT CHF (congestive heart failure) (HC) LIPID PANEL Early AM 01/09/2023 7:41 AM THREAD GRINDER from Last 3 Months or Most Recently Relevant to Health Maintenance Results * (ABNORMAL) CBC W PLT NO DIFF (08/02/2025 10:34 AM CDT) WHITE BLOOD COUNT 6.0 4.5 - 11.0 thou/cu mm 08/02/2025 11:37 AM CDT [facility] RED BLOOD COUNT 4.20 4.00 - 5.20 mil/cu mm 08/02/2025 11:37 AM CDT [facility] HEMOGLOBIN 11.8(L) 12.0 - 16.0 g/dL 08/02/2025 11:37 AM CDT [facility] HEMATOCRIT 39.2 33.0 - 51.0 % 08/02/2025 11:37 AM CDT [facility] MCV 93 80 - 100 fL 08/02/2025 11:37 AM CDT [facility] MCH 28.1 26.0 - 34.0 pg 08/02/2025 11:37 AM CDT [facility] MCHC 30.1(L) 32.0 - 36.0 g/dL 08/02/2025 11:37 AM CDT [facility] RDW 15.6(H) 11.5 - 15.5 % 08/02/2025 11:37 AM CDT [facility] PLATELET COUNT 313 140 - 440 thou/cu mm 08/02/2025 11:37 AM CDT [facility] MPV 9.7 6.5 - 11.0 fL 08/02/2025 11:37 AM CDT [facility] NRBC 0.0 % 08/02/2025 11:37 AM CDT [facility] ABS NRBC 0.0 thou /cu mm 08/02/2025 11:37 AM CDT [facility] Blood BLOOD SPECIMEN / Unknown Butterfly / Unknown 08/02/2025 10:34 AM CDT 08/02/2025 11:25 AM CDT us Virginia Lara HAND TOOL FILER HEMATOLOGY Final Resul t [place] [id number] * (ABNORMAL) PRO-BNP (08/02/2025 10:34 AM CDT) [facility] Signature PRO-BNP 685(H) <125 pg/mL 08/02/2025 12:05 PM CDT [facility] Blood BLOOD SPECIMEN / Unknown Butterfly / Unknown 08/02/2025 10:34 AM CDT 08/02/2025 11:25 AM CDT Narrative [facility] - 08/02/2025 12:05 PM CDT The following cut-points have been suggested for the use of proBNP for the diagnostic evaluation of heart failure (HF) in patient with acute dyspnea. Patients with eGFR >= 60 Diagnosis (rule in CHF) <50 Years Old 450 pg/mL 50 - 75 Years Old 900 pg/mL >75 Years Old 1800 pg/mL Exclusion (rule out CHF) Age Independent 300 pg/mL A cutoff of 1200 pg/mL for patients with an eGFR <60 yields a diagnostic sensitivity of 89% and specificity of 72% for acute congestive heart failure. us Virginia Lara NP SEND OUTS Final Resul t [facility] [address] [place] [address] * (ABNORMAL) BASIC METABOLIC PANEL (08/02/2025 10:34 AM CDT) Only the most recent of2 resultswithin the time period is included. SODIUM 142 136 - 145 mmol/L 08/02/2025 12:03 PM CDT [facility] POTASSIUM 4.3 3.5 - 5.1 mmol/L 08/02/2025 12:03 PM CDT [facility] CHLORIDE 98 98 - 107 mmol/L 08/02/2025 12:03 PM CDT [facility] CO2,TOTAL 30(H) 22 - 29 mmol/L 08/02/2025 12:03 PM CDT [facility] ANION GAP 14 5 - 18 08/02/2025 12:03 PM CDT [facility] GLUCOSE 74 70 - 99 mg/dL 08/02/2025 12:03 PM CDT [facility] CALCIUM 9.6 8.8 - 10.4 mg/dL 08/02/2025 12:03 PM CDT [facility] Comment: Reference ranges for this test were updated on 09/21/2024 to reflect our healthy population more accurately. Reference range changes are not retroactively applied to results, but previous results using the same methodology can be interpreted in the context of the new reference range. BUN 18 8 - 23 mg/dL 08/02/2025 12:03 PM CDT [facility] CREATININE 1.17(H) 0.50 - 0.90 mg/dL 08/02/2025 12:03 PM T [facility] BUN/CREAT RATIO 15 10 - 20 12:03 PM CDT [facility] eGFR 51(L) >90 mL/min/1. 73m2 08/02/2025 12:03 PM CDT [facility] Comment:As of 2022, eG FR is calculated by the CKD-EPI creatinine equation without race adjustment. eGFR can be influenced by muscle mass, exercise, and diet. The reported eGFR is an estimation only and is only applicable if the renal function is stable. Blood BLOOD SPECIMEN / Unknown Butterfly / Unknown 08/02/2025 10:34 AM CDT 08/02/2025 11:25 AM CDT us Virginia Lara HAND TOOL FILER [place] [address] * ECHO TTE COMPLETE W CONTRAST (06/21/2025 10:16 AM CDT) AORTIC VALVE MEAN PG 13 mmHg EJECTION FRACTION 63 % PEAK TR VELOCITY 2.9 m/s LVEDD 4.8 cm EJECTION FRACTION 60 - 65% Anatomical Region Laterality Modality Ultrasound 06/21/2025 9:29 AM CDT Narrative 06/21/2025 10:40 AM CDT ECHOCARDIOGRAM GEMINI WANG : 1955 70 years Study Date: 06/21/2025 9:29:15 AM Gender: F BP: 104/57 mmHg Height: 160.00 cm BSA: 2.03 m Weight: 102.00 kg Tech: GAGE Referring MD: DOROTHY SHANNON Site: [facility] Reading Location: MOBILE IP Patient Location: Inpatient. Procedure: 2D w/ Contrast, Color Doppler and Spectral Doppler. Indication for study: CHF Cardiac Rhythm: Sinus bradycardia.Study quality: Fair. Imaging limitations: This study was subject to imaging limitations due to patient being on a ventilator. Final Impressions: 1. Normal LV size, normal wall thickness, normal global systolic function with an estimated EF of 60 - 65%. 2. Right ventricular cavity size is mildly enlarged, global systolic RV function is normal. 3. Grade 2 pattern of LV diastolic filling. Increased left atrial pressure. 4. The aortic valve is bicuspid, mild stenosis and no regurgitation. 5. Mild-moderate tricuspid regurgitation. 6. The inferior vena cava is dilated, respiratory size variation less than 50%. 7. Dilated ascending aorta, diameter of 4.1 cm (upper limit of normal for age, sex, and BSA is 4.0 cm*), Height Index 2.56. 8. Dilated sinus of Valsalva, diameter of 4.0 cm (upper limit of normal for age, sex, and BSA is 3.8 cm*), Height Index 2.50 cm/m. 9. Echo contrast was administered to enhance visualization of all left ventricular segments. Comparison Compared to prior exam of 01/08/2023: Mild aortic stenosis now present. Chamber Sizes and Function Normal left ventricular size, normal wall thickness, normal global systolic function with an estimated EF of 60 - 65%. No resting regional wall motion abnormality visualized. Left atrial size is moderately enlarged. Left atrial pressure is increased. Right ventricular cavity size is mildly enlarged, global systolic RV function is normal. The right atrium is mildly enlarged. Right atrial volume index is 39 ml/m . The pulmonary artery is of normal size and origin. The sinus of Valsalva is dilated. The ascending aorta is dilated. Valves, RV Pressures and Diastolic Function The aortic valve is bicuspid, mild stenosis and no regurgitation. The mitral valve is normal in structure, trace mitral regurgitation. Spectral Doppler shows Grade 2 pattern of LV diastolic filling. The tricuspid valve is normal in structure, mild-moderate tricuspid regurgitation. The tricuspid regurgitant velocity is 2.9 m/s, the estimated right ventricular systolic pressure is 33 mmHg plus right atrial pressure. There is normal estimated pulmonary pressure by tricuspid regurgitation velocity and right atrial pressure. The pulmonic valve is not well visualized. Trace pulmonary regurgitation. Masses, Effusion, Shunts There is no pericardial effusion. The inferior vena cava is dilated, respiratory size variation less than 50%. No left to right shunting was detected by limited color flow Doppler interrogation of the interatrial septum. MEASUREMENTS AND CALCULATIONS 2-D Measurements and LV Function: LVID (d) 4.8 cm LV FS% (2D) 33 % LVID (s) 3.2 cm LVOT diameter 2.4 cm IVS (d) 1.0 cm HR 49 bpm LVPW (d) 0.9 cm LA Vol index 44 ml/m2 Ao Sinus 4.0 cm RA Vol index 39 ml/m2 Ao Sinus ULN 3.8 cm * RV Basal Diam 4.4 cm Asc Ao 4.1 cm RV Mid Diam 3.1 cm Asc Ao ULN 4.0 cm * * Input BSA outside of range, reported values correspond to BSA = 1.9 Diastology: Mitral Tissue Doppler Pulmonary veins E Peak 1.0 m/s e', Septum 0.08 m/s Pulm s 31.1 cm/s DT 169 msec e', Lateral 0.10 m/s Pulm d 77.3 cm/s E/e' Average 11.33 Pulm s/d ratio 0.40 Aortic Valve: Vmax 2.3 m/s RAMONITA (V) 1.79 cm VTI 0.63 m RAMONITA (I) 1.73 cm LVOT V max 0.9 m/s Max PG 22 mmHg LVOT VTI 0.24 m Mean PG 13 mmHg SV 109 ml Dim Index 0.39 SV index 54 ml/m CO 5.4 l/min CI 2.6 l/min/m Mitral Valve: MVA 4.5 cm MV P 1/2 49 msec MV Mean G 1 mmHg MV VTI 0.38 m Tricuspid Valve and estimated PA pressures: TR Vmax 2.9 m/s TAPSE 2.4 cm TR maxG 33 mmHg Pulmonic Valve: PV Vmax 0.9 m/s Contrast documentation: 3cc ml diluted Definity, lot #[id number], [facility]# [id number] was administered peripherally to enhance visualization of all left ventricular segments. . This study was interpreted by an [facility] accredited facility. CC: HIM (med records) [facility], Med/Surg - IP [facility]. Final Procedure Note Balbir Tello MD - 06/21/2025 ECHOCARDIOGRAM GEMINI WANG : 1955 70 years Study Date: 06/21/2025 9:29:15 AM Gender: F BP: 104/57 mmHg Height: 160.00 cm BSA: 2.03 m Weight: 102.00 kg Tech: GAGE Referring MD: DOROTHY SHANNON Site: [facility] Reading Location: MOBILE IP Patient Location: Inpatient. Procedure: 2D w/ Contrast, Color Doppler and Spectral Doppler. Indication for study: CHF Cardiac Rhythm: Sinus bradycardia.Study quality: Fair. Imaging limitations: This study was subject to imaging limitations due topatient being on a ventilator. Final Impressions: 1. Normal LV size, normal wall thickness, normal global systolic functionwith an estimated EF of 60 - 65%. 2. Right ventricular cavity size is mildly enlarged, global systolic RVfunction is normal. 3. Grade 2 pattern of LV diastolic filling. Increased left atrialpressure. 4. The aortic valve is bicuspid, mild stenosis and no regurgitation. 5. Mild-moderate tricuspid regurgitation. 6. The inferior vena cava is dilated, respiratory size variation lessthan 50%. 7. Dilated ascending aorta, diameter of 4.1 cm (upper limit of normal forage, sex, and BSA is 4.0 cm*), Height Index 2.56. 8. Dilated sinus of Valsalva, diameter of 4.0 cm (upper limit of normalfor age, sex, and BSA is 3.8 cm*), Height Index 2.50 cm/m. 9. Echo contrast was administered to enhance visualization of all leftventricular segments. Comparison Compared to prior exam of 01/08/2023: Mild aortic stenosis now present. Chamber Sizes and Function Normal left ventricular size, normal wall thickness, normal globalsystolic function with an estimated EF of 60 - 65%. No resting regionalwall motion abnormality visualized. Left atrial size is moderatelyenlarged. Left atrial pressure is increased. Right ventricular cavity sizeis mildly enlarged, global systolic RV function is normal. The rightatrium is mildly enlarged. Right atrial volume index is 39 ml/m . Thepulmonary artery is of normal size and origin. The sinus of Valsalva isdilated. The ascending aorta is dilated. Valves, RV Pressures and Diastolic Function The aortic valve is bicuspid, mild stenosis and no regurgitation. Themitral valve is normal in structure, trace mitral regurgitation. SpectralDoppler shows Grade 2 pattern of LV diastolic filling. The tricuspid valveis normal in structure, mild-moderate tricuspid regurgitation. Thetricuspid regurgitant velocity is 2.9 m/s, the estimated right ventricularsystolic pressure is 33 mmHg plus right atrial pressure. There is normalestimated pulmonary pressure by tricuspid regurgitation velocity and rightatrial pressure. The pulmonic valve is not well visualized. Tracepulmonary regurgitation. Masses, Effusion, Shunts There is no pericardial effusion. The inferior vena cava is dilated,respiratory size variation less than 50%. No left to right shunting wasdetected by limited color flow Doppler interrogation of the interatrialseptum. MEASUREMENTS AND CALCULATIONS 2-D Measurements and LV Function: LVID (d) 4.8 cm LV FS% (2D) 33% LVID (s) 3.2 cm LVOT diameter2.4 cm IVS (d) 1.0 cm HR 49bpm LVPW (d) 0.9 cm LA Vol index 44ml/m2 Ao Sinus 4.0 cm RA Vol index 39ml/m2 Ao Sinus ULN 3.8 cm * RV Basal Diam4.4 cm Asc Ao 4.1 cm RV Mid Diam3.1 cm Asc Ao ULN 4.0 cm * * Input BSA outside of range, reported values correspond to BSA = 1.9 Diastology: Mitral Tissue Doppler Pulmonary veins E Peak 1.0 m/s e', Septum 0.08 m/s Pulm s 31.1 cm/s DT 169 msec e', Lateral 0.10 m/s Pulm d 77.3 cm/s E/e' Average 11.33 Pulm s/d ratio 0.40 Aortic Valve: Vmax 2.3 m/s RAMONITA (V) 1.79 cm VTI 0.63 m RAMONITA (I) 1.73 cm LVOT V max 0.9 m/s Max PG 22 mmHg LVOT VTI 0.24 m Mean PG 13 mmHg SV 109 ml Dim Index 0.39 SV index 54 ml/m CO 5.4 l/min CI 2.6 l/min/m Mitral Valve: MVA 4.5 cm MV P 1/2 49 msec MV Mean G 1 mmHg MV VTI 0.38 m Tricuspid Valve and estimated PA pressures: TR Vmax 2.9 m/s TAPSE 2.4 cm TR maxG 33 mmHg Pulmonic Valve: PV Vmax 0.9 m/s Contrast documentation: 3cc ml diluted Definity, lot #[id number], [facility]#[id number] was administered peripherally to enhance visualization of allleft ventricular segments. . This study was interpreted by an [facility] accredited facility. CC: HIM (med records) [facility] Final Dorothy Shannon MD ECHO ORD Final Result * Lipid Panel (01/09/2023 7:41 AM THREAD GRINDER) CHOLESTEROL,TOTAL 146 100 - 199 mg/dL 01/09/2023 8:48 AM THREAD GRINDER [facility] TRIGLYCERIDES 98 <150 mg/dL 01/09/2023 8:48 AM THREAD GRINDER [facility] HDL CHOLESTEROL 43 >40 mg/dL 8:48 AM THREAD GRINDER [facility] NON-HDL CHOLESTEROL 103 <145 mg/dl 01/09/2023 8:48 AM THREAD GRINDER [facility] CHOL/HDL RATIO 3.40 <4.50 01/09/2023 8:48 AM THREAD GRINDER [facility] LDL CHOLESTEROL 83 <=130 mg/dL 01/09/2023 8:48 AM THREAD GRINDER [facility] VLDL CHOLESTEROL 20 <=30 mg/dL 01/09/20 8:48 AM THREAD GRINDER [facility] PROVIDER ORDERED STATUS RANDOM 01/09/2023 8:48 AM THREAD GRINDER [facility] Blood BLOOD SPECIMEN / Unknown Venipuncture / Unknown 01/09/2023 7:41 AM THREAD GRINDER 01/09/2023 8:12 AM THREAD GRINDER William Mosley MD CHEMISTRY Final Result [facility] [address] [place] [address] from Last 3 Months or Most Recently Relevant to Health Maintenance Insurance MEDICARE PART A HB ONLY [facility] [id number] 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 * DNR (Latest Code Status on File) Date Activated Date Inactivated Comments 11/11/2023 3:36 AM 11/15/2023 8:41 PM Question Answer Comments Code Status Discussion: Reviewed Preferences * Full Code Date Activated Date Inactivated Comments 11/07/2023 11:34 PM 11/09/2023 4:57 PM Question Answer Comments Code Status Discussion: Reviewed Preferences * DNR Date Activated Date Inactivated Comments 01/10/2023 1:21 PM 01/13/2023 7:43 PM Question Answer Comments Code Status Discussion: Reviewed Preferences * Full Code Date Activated Date Inactivated Comments 01/08/2023 2:36 PM 01/10/2023 1:21 PM Question Answer Comments Code Status Discussion: Reviewed Preferences * Full Code Date Activated Date Inactivated Comments 08/03/2022 6:48 PM 08/04/2022 5:33 PM per STEPHANIE on -file dated 02/26/2022 Question Answer Comments Code Status Discussion: Reviewed Preferences Care Teams Senior Planning Analyst Relationship Specialty Start Date End Date InésdylanEstrellah PCP - General 06/02/25 [facility], [place] [address] [place] [address] 05/24/25
--- NOTE | 2025-08-18 15:56 | ED.GENADULT ---
HPI - General Adult General Chief complaint: Weakness Stated complaint: SOB, weakness Time Seen by Provider: 08/18/25 15:55 History of Present Illness HPI narrative: 70-year-old female who has a complex past medical history including congenital dilatation of her aorta, history of PE, paroxysmal AFib, diastolic CHF, history of TIA, GERD, morbid obesity, rheumatoid arthritis, epilepsy, COPD, sleep apnea, type 2 diabetes, ?unspecified adrenal cortical insufficiency?, anxiety, mood disorder, nicotine dependence. Per medical record she was seen here in the ER in June. She was a resident at the [facility]. EMS brought her in that day because she was ?not doing well. She was requiring more than her baseline oxygen. She was feeling dizzy. Workup in the ER included a CT of her chest that was negative for PE. But did show multifocal bilateral pulmonary nodules/consolidations indicative of multifocal infectious or inflammatory process. CT also showed cardiomegaly, small right pleural effusion, mediastinal lymphadenopathy, and dilation of the main pulmonary artery. Labs showed WBC of 7.9, hemoglobin 10.3, platelet count 2 through 7. Sodium 140, potassium 4.5, chloride 96, bicarb 39, BUN 32, creatinine 1.5, glucose 99, lactic 1.6, calcium 8.8, magnesium 2.2, total bili 0.4, AST of 456, ALT of 232, troponin normal at 0.03. CRP was 4.0. BNP was 57 10. Urine was normal. COVID negative. Right upper quadrant ultrasound showed liver 19 cm in length. No biliary ductal dilatation She was put on BiPAP. Nitro drip for CHF. Treated with antibiotics. Per discharge summary 06/27/2025 She was diagnosed with acute on chronic respiratory failure with hypoxia and hypercapnia. Primarily due to heart failure. Also treated with antibiotics for pneumonia. Treated with diuresis. Echocardiogram on June 21 2025 showed LV ejection fraction of 60-65%, [id number] tricuspid regurgitation, bicuspid aortic valve with mild stenosis. She had altered mental status and was obtunded due to respiratory failure and low blood pressure which improved in the hospital. Of note she is on high-dose gabapentin which is a risk factor for altered mental status as well as respiratory failure. She had atrial fibrillation with rapid ventricular response. She was on metoprolol 37.5 mg p.o. b.i.d. at discharge. She was treated with stress dose steroids for her chronic renal insufficiency. Per discharge summary, they recommended that when she gets sick she received double or triple her daily dose for 3 days while she is ill Elevated transaminases were thought to have been due to low blood pressure and shock History from today per patient- Patient is a resident at the [facility] in [place]. She notes that multiple people have been sick recently with coughs but they will not go to the doctor. She has had a cough for about a week. She woke up this morning and then developed a ?migraine?. She has a history of frequent migraine headaches and this 1 is similar to the past but worse than most. It is located left frontal region which is the typical spot for her migraine. It did not come on suddenly. It is associated with nausea but not much vomiting. She apparently did throw up once, after taking her Eliquis. She would not want eat food or drink water this morning because she was nauseous. She was given Tylenol for her headache. She says she is allergic to acetaminophen so she does not know why her providers give her that medication. She also endorses that she has a substernal chest pain this been present since her headache started this morning. Her cough is still there but not worse than normal. She does not feel short of breath. She is noted to be hypoxic. She does not feel more short of breath than normal. She does have chronic peripheral edema with wraps on her legs. She says this is not worse than normal. She think she was able take all of her other meds this morning, save for her Eliquis. History from EMS- EMS was called because her memory care unit staff were concerned that the patient was more sleepy lethargic normal. When asked why staff she had reported a headache. She also tell EMS she was having chest and abdominal pain. O2 sats were 60-90% but respirations were unlabored. Related Data Home Medications ?Medication ?Instructions ?Recorded ?Confirmed acetaminophen 325 mg tablet 650 mg PO TID 06/21/25 06/21/25 amiodarone 200 mg tablet 200 mg PO DAILY 06/21/25 06/21/25 ammonium lactate 12 % topical cream 1 applic topical BID 06/21/25 06/21/25 apixaban 5 mg tablet (Eliquis) 5 mg PO BID 06/21/25 06/21/25 ascorbic acid (vitamin C) 1,000 mg 1,000 mg PO BID 06/21/25 06/21/25 tablet calcium 600 mg (as 1 tab PO BID 06/21/25 06/21/25 carbonate)-vitamin D3 10 mcg (400 unit) tablet cholecalciferol (vitamin D3) 125 125 mcg PO QAM 06/21/25 06/21/25 mcg (5,000 unit) capsule cyanocobalamin (vitamin B-12) 500 500 mcg PO DAILY 06/21/25 06/21/25 mcg tablet diclofenac sodium 1 % topical gel 4 g topical QID 06/21/25 06/21/25 divalproex 500 mg tablet,extended 2,000 mg PO HS 06/21/25 06/21/25 release 24 hr ergocalciferol (vitamin D2) 1,250 1,250 mcg PO .sat 06/21/25 06/21/25 mcg (50,000 unit) capsule fluticasone fur. 100 mcg-umeclid 1 inh inhalation DAILY 06/21/25 06/21/25 62.5 mcg-vilant 25 mcg inhalat.powder (Trelegy Ellipta) fluticasone propionate 50 2 spray intranasal DAILY 06/21/25 06/21/25 mcg/actuation nasal spray,suspension (24 Hour Allergy Relief) guaifenesin 100 mg/5 mL oral 200 mg PO Q4H PRN 06/21/25 06/21/25 liquid (Chest Congestion Relief) hydrocortisone 10 mg tablet 5 mg PO QPM 06/21/25 06/21/25 hydrocortisone 10 mg tablet 10 mg PO DAILY 06/21/25 06/21/25 (Cortef) levothyroxine 25 mcg tablet 25 mcg PO DAILY 06/21/25 06/21/25 lidocaine 4 % topical patch 1 patch topical DAILY@19 06/21/25 06/21/25 melatonin 5 mg tablet 5 mg PO HS insomnia 06/21/25 06/21/25 montelukast 10 mg tablet 10 mg PO DAILY 06/21/25 06/21/25 multivitamin with folic acid 400 1 tab PO DAILY 06/21/25 06/21/25 mcg tablet (Tab-A-Tiffanie) naloxone 4 mg/actuation nasal 4 mg intranasal Q2M PRN 06/21/25 06/21/25 spray (Narcan) polyethylene glycol 3350 17 gram 17 g PO DAILY PRN 06/21/25 06/21/25 oral powder packet (Gavilax) rimegepant 75 mg disintegrating 75 mg PO DAILY PRN 06/21/25 06/21/25 tablet (Nurtec ODT) rosuvastatin 20 mg tablet 20 mg PO HS 06/21/25 06/21/25 sennosides 8.6 mg-docusate sodium 1 tab-cap PO DAILY PRN 06/21/25 06/21/25 50 mg tablet (Colace 2-In-1) sertraline 25 mg tablet 25 mg PO DAILY 06/21/25 06/21/25 sodium chloride 0.65 % nasal spray 1 spray intranasal BID 06/21/25 06/21/25 aerosol (Deep Sea Nasal) tiotropium bromide 2.5 2 inh inhalation DAILY 06/21/25 06/21/25 mcg/actuation mist for inhalation (Spiriva Respimat) torsemide 20 mg tablet 40 mg PO DAILY 06/21/25 06/21/25 Previous Rx's ?Medication ?Instructions ?Recorded gabapentin 400 mg capsule 400 mg PO DAILY #30 caps 06/26/25 metoprolol tartrate 25 mg tablet 37.5 mg (1.5 x 25 mg) PO BID #45 06/26/25 tabs empagliflozin 10 mg tablet 10 mg PO QAM #30 tabs 06/27/25 (Jardiance) metformin 500 mg tablet,extended 500 mg PO DAILY #30 tabs 06/27/25 release 24 hr potassium chloride 10 mEq 10 meq PO DAILY #30 caps 06/27/25 capsule,extended release Allergies Allergy/AdvReac Type Severity Reaction Status Date / Time aspirin Allergy Severe gi bleed Verified 06/20/25 22:23 codeine Allergy Severe Migraine Verified 06/20/25 22:23 cucumber Allergy Severe angioedema Verified 06/20/25 22:23 NSAIDS (Non-Steroidal Allergy Severe gi bleed Verified 06/20/25 22:23 Anti-Inflamma lactase Allergy Intermediate gi upset Verified 06/20/25 22:23 sulfamethoxazole (From Allergy Intermediate Hives Verified 06/20/25 22:23 Bactrim) sumatriptan Allergy Intermediate worsening Verified 06/20/25 22:23 headache trimethoprim (From Bactrim) Allergy Intermediate Hives Verified 06/20/25 22:23 levofloxacin Allergy Mild Rash Verified 06/20/25 22:23 [facility] Medical History (Updated 08/18/25 @ 20:43 by Smooth Pollock MD) Polypharmacy ?Z79.899 - Other shelter (current) drug therapy (ICD-10) History of pulmonary embolism ?Z86.711 - Personal history of pulmonary embolism (ICD-10) Epilepsy ?G40.909 - Epilepsy, unspecified, not intractable, without status epilepticus (ICD-10) Diabetes ?E11.9 - Type 2 diabetes mellitus without complications (ICD-10) Chronic adrenal insufficiency ?E27.40 - Unspecified adrenocortical insufficiency (ICD-10) History of COPD ?Z87.09 - Personal history of other diseases of the respiratory system (ICD-10) Chronic diastolic heart failure ?I50.32 - Chronic diastolic (congestive) heart failure (ICD-10) Obstructive sleep apnea ?G47.33 - Obstructive sleep apnea (adult) (pediatric) (ICD-10) 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 ?F06.70 - Mild neurocognitive disorder due to known physiological condition without behavioral disturbance (ICD-10) H/O stroke without residual deficits ?Z86.73 - Personal history of transient ischemic attack (TIA), and cerebral infarction without residual deficits (ICD-10) Transient ischemic attack (TIA) ?G45.9 - Transient cerebral ischemic attack, unspecified (ICD-10) Pulmonary embolus ?I26.99 - Other pulmonary embolism without acute cor pulmonale (ICD-10) Unspecified adrenocortical insufficiency ?E27.40 - Unspecified adrenocortical insufficiency (ICD-10) Diabetes type 2 ?E11.9 - Type 2 diabetes mellitus without complications (ICD-10) GERD without esophagitis ?K21.9 - Gastro-esophageal reflux disease without esophagitis (ICD-10) Chronic idiopathic constipation ?K59.04 - Chronic idiopathic constipation (ICD-10) PTSD (post-traumatic stress disorder) ?F43.10 - Post-traumatic stress disorder, unspecified (ICD-10) Anxiety ?F41.9 - Anxiety disorder, unspecified (ICD-10) Nonintractable epilepsy with complex partial seizures ?G40.209 - Localization-related (focal) (partial) symptomatic epilepsy and epileptic syndromes with complex partial seizures, not intractable, without status epilepticus (ICD-10) Rheumatoid arthritis ?M06.9 - Rheumatoid arthritis, unspecified (ICD-10) Acute on chronic diastolic (congestive) heart failure ?I50.33 - Acute on chronic diastolic (congestive) heart failure (ICD-10) Acute respiratory failure with hypoxia and hypercapnia ?J96.01 - Acute respiratory failure with hypoxia (ICD-10) ?J96.02 - Acute respiratory failure with hypercapnia (ICD-10) Opioid dependence ?F11.20 - Opioid dependence, uncomplicated (ICD-10) Cellulitis of both lower extremities ?L03.115 - Cellulitis of right lower limb (ICD-10) ?L03.116 - Cellulitis of left lower limb (ICD-10) Chronic hypoxemic respiratory failure ?J96.11 - Chronic respiratory failure with hypoxia (ICD-10) Chronic obstructive pulmonary disease on long-term inhaled steroid therapy ?J44.9 - Chronic obstructive pulmonary disease, unspecified (ICD-10) ?Z79.51 - white sugar syrup operator (current) use of inhaled steroids (ICD-10) Atrial fibrillation with RVR ?I48.91 - Unspecified atrial fibrillation (ICD-10) CHF (congestive heart failure) ?I50.9 - Heart failure, unspecified (ICD-10) Acute hyponatremia ?E87.1 - Hypo-osmolality and hyponatremia (ICD-10) Class 2 severe obesity with serious comorbidity in adult ?E66.812 - Obesity, class 2 (ICD-10) ?E66.01 - Morbid (severe) obesity due to excess calories (ICD-10) Seizure ?R56.9 - Unspecified convulsions (ICD-10) Paroxysmal atrial fibrillation ?I48.0 - Paroxysmal atrial fibrillation (ICD-10) Bicuspid aortic valve ?Q23.81 - Bicuspid aortic valve (ICD-10) Asthma ?J45.909 - Unspecified asthma, uncomplicated (ICD-10) Aortic aneurysm ?I71.9 - Aortic aneurysm of unspecified site, without rupture (ICD-10) Adrenal insufficiency ?E27.40 - Unspecified adrenocortical insufficiency (ICD-10) Surgical History H/O: hysterectomy ?Z90.710 - Acquired absence of both cervix and uterus (ICD-10) History of cholecystectomy ?Z90.49 - Acquired absence of other specified parts of digestive tract (ICD-10) Social History What is your current living situation?: unable to answer Problems where you live: unable to answer Problems where you live details: Pt unable to answer In the past 12 months, utilities in danger of being shut off: unable to answer In past 12 months, lack of transportation kept you from medical appts, meetings, work, or getting things needed for daily living: unable to answer In the past 12 mos, have been you worried that your food would run out before you had money to buy more?: unable to answer In the past 12 mos, the food you bought just didn't last and you didn't have money to buy more?: unable to answer Highest level of school completed/degree received: don't know Smoking Status: Unknown if ever smoked Do you use any of these nicotine containing products: None How often do you have a drink containing alcohol: never AUDIT-C Alcohol total score: 0 Non-prescribed substance use details: Pt unable answer How often does anyone, including family, friends and others, physically hurt you: unable to answer How often does anyone, including family, friends and others, insult or talk down to you: unable to answer How often does anyone, including family, friends and others, threaten you with harm: unable to answer How often does anyone, including family, friends and others, scream or curse at you: unable to answer Exam Narrative: Exam Narrative: Constitutional: Appears well-developed and well-nourished. Alert. Conversant and speaking full sentences. Oxygen sats are difficult to interpret because she is not getting good perfusion of her fingers. With a nasal probe sat seemed to be around 90% or so on 3 L nasal cannula. She is not tachypneic or feeling short of breath. Respirations unlabored. Overall she is alert and conversant. History is a little bit different from what was reported by EMS but the patient sees to be able to provide a fairly cogent history today HENT: Head: Atraumatic. Nose: Nose normal. Mouth/Throat: Oral mucosa is clear and moist. Not desiccated or cracked. no trismus. Pharynx normal. Tonsils symmetric. No tonsillar enlargement, erythema, or exudate. Eyes: Conjunctivae normal. EOM normal. Pupils equal, round, and reactive to light. No scleral icterus. Neck: Normal range of motion. Neck supple. No tracheal deviation present. No JVD Cardiovascular: Bradycardic and irregularly irregular rhythm. No gallop. No friction rub. No murmur heard. Symmetric radial artery pulses Pulmonary/Chest: Effort normal. No stridor. No respiratory distress. No wheezes. Bilateral rales and rhonchi in the lower lung field. No tenderness. Abdominal: Soft. Bowel sounds normal. No distension. No mass. No tenderness. No rebound. No guarding. No CVA tenderness. Musculoskeletal: RUE: Normal range of motion. No tenderness. No deformity LUE: Normal range of motion. No tenderness. No deformity RLE: Normal range of motion. 1+ edema. No tenderness. No deformity LLE: Normal range of motion. 1+ edema. No tenderness. No deformity Neurological: Alert and oriented to person, place, and time. Normal strength. CN II-VII intact. No sensory deficit. GCS eye subscore is 4. GCS verbal subscore is 5. GCS motor subscore is 6. Normal coordination Mental status normal. Attention normal. Alert and oriented x3. GCS 15. Memory normal. Speech fluent. Cognition normal. Cranial Nerves intact II-XII except I did not formally test gag or visual acuity. EOMI. Palate elevates symmetrically and tongue protrudes in the midline. Strength: 5/5 trapezius on the right and left 5/5 deltoid on the right and left 5/5 biceps on the right and left 5/5 triceps on the right and left 5/5 heart coordinator on the right and left 5/5 thumb opposition on the right and left 5/5 finger abduction on the right and left 5/5 hip flexors (L3) on the right and left 5/5 quadriceps (L4) on the right and left 5/5 tibialis anterior on the right and left 5/5 EHL (L5) on the right and left 5/5 gastrocnemius (S1) on the right and left 5/5 hamstring on the right and left Sensation intact to light touch in both upper extremities (C4-T1) Sensation intact to light touch in Both lower extremities (L4-S1). Finger to nose and coordination normal. Gait not assessed due to hypoxia and borderline low blood pressure Skin: Skin is warm and dry. No rash noted. No pallor. Normal capillary refill. Psychiatric: Normal mood. Normal affect. Polite. Const: Vital Signs, click to edit/add: Vital Signs - 24 hr 08/18/25 15:54 08/18/25 15:59 08/18/25 16:00 Temperature Pulse Rate 52 L 48 L 47 L Pulse Rate [Pulse Oximeter] Respiratory Rate 18 Blood Pressure 101/67 Blood Pressure [Ri ght Upper Arm] Pulse Oximetry 86 L 89 Oxygen Delivery Me thod Nasal Cannula Oxygen Flow Rate 5 08/18/25 16:04 08/18/25 16:13 08/18/25 16:15 Temperature 97.6 F Pulse Rate 48 L 47 L Pulse Rate [Pulse Oximeter] 47 L Respiratory Rate 22 16 18 Blood Pressure 121/22 L Blood Pressure [Ri ght Upper Arm] 101/67 Pulse Oximetry 97 88 90 Oxygen Delivery Me thod Nasal Cannula OxyMask Oxygen Flow Rate 2 8 08/18/25 16:17 08/18/25 16:18 08/18/25 16:30 Temperature Pulse Rate 47 L 46 L 48 L Pulse Rate [Pulse Oximeter] Respiratory Rate 17 16 Blood Pressure 95/61 Blood Pressure [Ri ght Upper Arm] Pulse Oximetry 91 87 L 83 L Oxygen Delivery Me thod Oxygen Flow Rate 08/18/25 16:31 08/18/25 16:40 08/18/25 16:50 Temperature Pulse Rate 48 L 48 L Pulse Rate [Pulse Oximeter] Respiratory Rate 18 15 Blood Pressure 102/63 87/52 L Blood Pressure [Ri ght Upper Arm] Pulse Oximetry 85 L 82 L Oxygen Delivery Me thod Nasal Cannula Oxygen Flow Rate 5 08/18/25 16:56 08/18/25 17:00 08/18/25 17:01 Temperature Pulse Rate 48 L 48 L 48 L Pulse Rate [Pulse Oximeter] Respiratory Rate 20 15 Blood Pressure 81/68 L 108/73 Blood Pressure [Ri ght Upper Arm] Pulse Oximetry 90 91 Oxygen Delivery Me thod OxyMask Oxygen Flow Rate 8 08/18/25 17:02 08/18/25 17:35 08/18/25 17:36 Temperature Pulse Rate 47 L 54 L 50 L Pulse Rate [Pulse Oximeter] Respiratory Rate 15 14 Blood Pressure Blood Pressure [Ri ght Upper Arm] Pulse Oximetry 89 90 Oxygen Delivery Me thod OxyMask Oxygen Flow Rate 8 08/18/25 17:39 08/18/25 17:46 08/18/25 18:00 Temperature Pulse Rate 49 L 50 L 50 L Pulse Rate [Pulse Oximeter] Respiratory Rate 19 20 14 Blood Pressure 100/56 L 102/57 L Blood Pressure [Ri ght Upper Arm] Pulse Oximetry 90 90 88 Oxygen Delivery Me thod OxyMask OxyMask Oxygen Flow Rate 8 8 08/18/25 18:02 08/18/25 18:03 08/18/25 18:15 Temperature Pulse Rate 50 L 50 L 49 L Pulse Rate [Pulse Oximeter] Respiratory Rate 20 20 28 H Blood Pressure 88/52 L Blood Pressure [Ri ght Upper Arm] Pulse Oximetry 88 87 L 86 L Oxygen Delivery Me thod Oxygen Flow Rate 08/18/25 18:16 08/18/25 18:30 08/18/25 18:31 Temperature Pulse Rate 48 L 50 L 50 L Pulse Rate [Pulse Oximeter] Respiratory Rate 15 14 20 Blood Pressure 90/58 L 99/60 Blood Pressure [Ri ght Upper Arm] Pulse Oximetry 85 L 84 L 84 L Oxygen Delivery Me thod Oxygen Flow Rate 08/18/25 18:45 08/18/25 18:46 08/18/25 19:00 Temperature Pulse Rate 49 L 49 L 50 L Pulse Rate [Pulse Oximeter] Respiratory Rate 12 13 14 Blood Pressure 88/58 L Blood Pressure [Ri ght Upper Arm] Pulse Oximetry 84 L 84 L 84 L Oxygen Delivery Me thod Oxygen Flow Rate 08/18/25 19:01 08/18/25 19:05 08/18/25 19:09 Temperature Pulse Rate 49 L 50 L Pulse Rate [Pulse Oximeter] 50 L Respiratory Rate 14 27 H 20 Blood Pressure 88/56 L 91/59 L Blood Pressure [Ri ght Upper Arm] 91/59 L Pulse Oximetry 84 L 84 L 88 Oxygen Delivery Me thod OxyMask Oxygen Flow Rate 10 08/18/25 19:15 08/18/25 19:16 08/18/25 19:30 Temperature Pulse Rate 49 L 50 L 48 L Pulse Rate [Pulse Oximeter] Respiratory Rate 16 13 15 Blood Pressure 102/63 Blood Pressure [Ri ght Upper Arm] Pulse Oximetry 89 90 90 Oxygen Delivery Me thod Oxygen Flow Rate 08/18/25 19:31 08/18/25 19:49 08/18/25 20:00 Temperature Pulse Rate 48 L Pulse Rate [Pulse Oximeter] Respiratory Rate 13 15 14 Blood Pressure 101/68 Blood Pressure [Ri ght Upper Arm] Pulse Oximetry 90 Oxygen Delivery Me thod Oxygen Flow Rate 08/18/25 20:05 08/18/25 20:09 08/18/25 20:12 Temperature Pulse Rate 50 L Pulse Rate [Pulse Oximeter] Respiratory Rate 18 14 15 Blood Pressure 115/65 109/63 Blood Pressure [Ri ght Upper Arm] Pulse Oximetry 87 L Oxygen Delivery Me thod Oxygen Flow Rate 08/18/25 20:15 08/18/25 20:17 08/18/25 20:18 Temperature Pulse Rate 49 L 50 L 49 L Pulse Rate [Pulse Oximeter] Respiratory Rate 13 14 12 Blood Pressure 107/62 Blood Pressure [Ri ght Upper Arm] Pulse Oximetry 87 L 86 L 84 L Oxygen Delivery Me thod OxyMask OxyMask Oxygen Flow Rate 5 5 08/18/25 20:50 08/18/25 20:50 08/18/25 20:51 Temperature Pulse Rate 50 L 50 L Pulse Rate [Pulse Oximeter] 0 L Respiratory Rate 20 12 13 Blood Pressure 104/59 L Blood Pressure [Ri ght Upper Arm] 104/59 L Pulse Oximetry 88 86 L 85 L Oxygen Delivery Me thod OxyMask OxyMask OxyMask Oxygen Flow Rate 5 8 8 08/18/25 21:00 Temperature Pulse Rate 51 L Pulse Rate [Pulse Oximeter] Respiratory Rate 13 Blood Pressure Blood Pressure [Ri ght Upper Arm] Pulse Oximetry 88 Oxygen Delivery Me thod OxyMask Oxygen Flow Rate 8 Course Course ED Course: Recheck-headache doing better. Improving. Reevaluation(s) Reevaluation #1: Recheck-now is more somnolent. She is drowsy but arouses to gentle shoulder shake. She is much less conversant now than she was before. She is breathing easily. No tachypnea or retractions. Still some rales but no wheezes. Nurses have changed her from oxygen via nasal cannula to oxygen via OxyMask at 5 L. Will recheck VBG in case she is not retaining CO2. Reevaluation #2: Repeat repeat VBG actually shows improving pCO2, not worsening. PH shows a respiratory alkalosis. Unclear why she had become more altered. She still arousable and protecting her airway. She will clearly require hospitalization. Discussed with the patient's sister, Ana Paula by phone. She verbalizes her understanding.. Reevaluation #3: Recheck-discussed with hospitalist, Dr. Nichols who graciously came to the ER to evaluate the patient. She will accept the patient for admission to the critical care unit. We suspect that she may need some positive-pressure ventilation with CPAP because CHF. Vital Signs Vital signs: Initial Vital Signs Pulse Rate 52 L 08/18/25 15:54 Vital Signs Pulse Rate 52 L 08/18/25 15:54 Temperature 97.6 F 08/18/25 16:04 Pulse Rate 51 L 08/18/25 21:00 Respiratory Rate 13 08/18/25 21:00 Blood Pressure 104/59 L 08/18/25 20:51 Pulse Oximetry 88 08/18/25 21:00 Oxygen Delivery Method OxyMask 08/18/25 21:00 Oxygen Flow Rate 8 08/18/25 21:00 Medications Administered Medications: Discontinued Medications Generic Name Dose Route Start Last Admin Trade Name Freq PRN Reason Stop Dose Admin Hydrocortisone Sodium Succinate 100 mg 08/18/25 16:27 08/18/25 16:54 Hydrocortisone Sod Succinate 50 Mg/Ml Inj IVP 08/18/25 16:28 100 mg ONCE ONE Administration Sodium Chloride 250 mls @ 250 mls/hr 08/18/25 16:29 08/18/25 19:30 0.9 % Sodium Chloride 250 Ml IV 08/18/25 17:28 Infused .Q1H ONE Infusion Ketorolac Tromethamine 15 mg 08/18/25 16:27 08/18/25 16:55 Ketorolac 15 Mg/Ml Inj IVP 08/18/25 16:28 15 mg ONCE ONE Administration Metoclopramide HCl 10 mg 08/18/25 16:27 08/18/25 16:58 Metoclopramide Hcl 5 Mg/Ml Inj IVP 08/18/25 16:28 10 mg ONCE ONE Administration Medical Decision Making MDM Narrative Medical decision making narrative: 70-year-old female with a complex presentation to the ER today. 1. Neuro: Patient is she complains that she has a left frontal headache that began this morning. She has a history migraines and reports this headache is similar in location, character and onset to her typical migraines. It is worse than most. She has had migraines like this in the past that did not respond to her normal medication (Nurtec) but has responded to my midodrine in the past. Because the patient is on Eliquis, we did obtain head CT scan to make sure there is no spontaneous intracranial hemorrhage or other bleed. Headache was not abrupt in onset and I do not think it represents a ruptured subarachnoid hemorrhage. No associated fever or neck stiffness to raise concern for meningitis. At this point would hold off on CT angiogram or lumbar puncture. Although she vomited up her dose of Eliquis this morning she has been taking it lately and therefore the risk of bleeding from lumbar puncture was probably increased. Overall think the benefit of LP would be very low at this point and clearly exceeded by the potential risk of but attempting the procedure. No acute focal deficits to suggest stroke. 2. Cardiovascular/hemodynamics. Patient did have some soft blood pressures per EMS. Borderline but normal blood pressures here in the ER. With history of CHF I ordered a gentle IV fluid bolus of 250 mL to start. Differential this is broad. She is on chronic steroids for adrenal insufficiency. It sounds like she has not been getting any ?stress dose? steroids lately. We did give her 100 mg of hydrocortisone. EKG shows what I think is AFib with slow ventricular response. During her past hospitalization she had RVR. During discharge from the past hospitalization she had an increase in her chronic dose of metoprolol. Per her med list it looks like she is on amiodarone 200 mg p.o. once daily she is on metoprolol tartrate 37.5 mg p.o. b.i.d.. She is also on Eliquis for stroke prophylaxis. She has a history of CHF. Per medical record she is currently on torsemide 60 mg once daily in the morning. Also Jardiance 10 mg once daily, potassium chloride. Today the and terminal proBNP is elevated at just over 4000 chest x-ray shows findings consistent with CHF. EKG shows slow AFib but no definite ischemia. Troponin negative. 3. Pulmonary/respiratory. She has chronic respiratory failure in a sounds like she is chronically on oxygen at home. She does have an acute cough for the past week or so. Chest x-ray shows findings consistent with CHF. Also potentially an atypical infection but no clear focal pneumonia.. COVID /influenza/RSV PCR is negative She is hypoxic here in the ER and does have signs of peripheral edema but says there is no edema worse than normal. Consider possible CHF. BNP level is over 4000. Chest x-ray shows signs of pulmonary edema which I think would correlate with the patient's hypoxia.. Yes she has a history of asthma/COPD medical record. She is not wheezing on my exam here in the ER today. 4. Endocrine. She does have chronic adrenal insufficiency. Stress dose hydrocortisone administered here in the ER 100 mg IV. Blood sugar is normal at 114. Anion gap is not widened. Bicarb level is 40, no evidence for DKA. TSH is normal 5. Heme: Hemoglobin mildly anemic at 10.8. Similar to baseline. No evidence for any active bleeding. White count normal. 6. Renal/electrolyte: Sodium normal. Kidney function normal. Magnesium normal at 2.0. 7. Infectious disease: Patient has had a recent cough. Denies any fever. Blood cultures pending. No clear evidence for sepsis. Lab Data Labs: Lab Results 08/18/25 08/18/25 08/18/25 Range/Units 16:05 16:40 20:00 WBC 8.27 (4.50-11.00) K/uL RBC 3.88 L (4.00-5.20) m/uL Hgb 10.8 L (12.0-16.0) gm/dL Hct 36.4 (33.0-51.0) % MCV 94 (80-100) fL MCH 28 (26-34) pg MCHC 30 L (32-36) gm/dL RDW Coeff of Nicci 15.8 H (11.5-15.5) % Plt Count 188 (140-440) K/uL Neut % (Auto) 70.0 (42.0-72.0) % Lymph % (Auto) 19.1 L (20-44) % [facility] % (Auto) 9.2 (0.0-11.0) % Eos % (Auto) 0.8 (0.0-7.0) % Baso % (Auto) 0.7 (0.0-3.0) % Neut # (Auto) 5.78 (1.7-7.0) K/uL Lymph # (Auto) 1.60 (0.90-2.90) K/uL [facility] # (Auto) 0.80 (0.00-0.90) K/UL Eos # (Auto) 0.07 (0.00-0.50) K/uL Baso # (Auto) 0.06 (0.00-0.30) K/uL Abs Immat Gran (auto) 0.02 (0.00-0.30) K/uL Imm/Tot Granulo (auto) 0.2 % VBG pH 7.422 7.463 H (7.32-7.43) VBG pCO2 60 H 50 (40-50) mmHG VBG pO2 30.1 39.2 (25-47) mmHG VBG HCO3 39 H 36 H (21-28) mmol/L Sodium 137 (135-149) mmol/L Potassium 4.5 (3.6-5.1) mmol/L Chloride 93 L (96-114) mmol/L Carbon Dioxide 40 H (20-32) mmol/L Anion Gap 4 L (7-15) mEq/L BUN 19 (7-30) mg/dL Creatinine 1.1 (0.5-1.5) mg/dL Estimated Creat Clear 40.49 Estimated GFR 55 ml/min Glucose 114 (60-115) mg/dL Lactate 3.0 H (0.5-1.9) mmol/L Calcium 8.8 (8.4-10.6) mg/dL Magnesium 2.0 (1.5-2.6) mg/dL Total Bilirubin 0.6 (0.1-1.5) mg/dL AST 42 H (12-35) U/L ALT 14 (4-35) U/L Alkaline Phosphatase 56 (40-150) U/L Troponin I 0.01 (0.01-0.04) ng/mL C-Reactive Protein 3.6 H (0.5-1.0) mg/dL NT-Pro-B Natriuret Pep 4060 H (See Note) pg/mL Total Protein 7.4 (6.0-8.3) g/dL Albumin 3.9 (3.3-5.0) g/dL TSH 4.130 (0.270-4.200) uIU/mL SARS-CoV-2 (PCR) Negative SARS-CoV-2 (Negative) Influenza Type A (PCR) Negative PCR FLU A (Negative) Influenza Type B (PCR) Negative PCR FLU B (Negative) RSV (PCR) Negative PCR RSV (Negative) Imaging Data Chest x-ray: Attestation: I have reviewed the pertinent imaging results. My impression: No obvious infiltrate. Question mild pulmonary edema. Radiologist's impression: Impression: Moderate interstitial prominence and small left pleural effusion are compatible with pulmonary edema, though atypical infection may have a similar appearance. CT scan - head: Attestation: I have reviewed the pertinent imaging results. Radiologist's impression: IMPRESSION: No acute intracranial abnormality on this noncontrast study. Mild diffuse parenchymal volume loss and chronic white matter ischemic disease. ECG Data Attestation: I personally reviewed and interpreted this ECG as follows: Interpretation: Atrial fibrillation with slow ventricular response Rate 52 Normal QRS axis. No pathologic Q-waves. Nonspecific T-wave flattening in leads 1, 2, 3, AVF, V1, V2, V4-V6. Artifact in lead V3. The QT 326, QTC 3 03 Discharge Plan Discharge Clinical Impression: Acute on chronic hypoxic respiratory failure, CHF (congestive heart failure), Headache, Acute alteration in mental status, Chest pain Patient Disposition: Admitted As Inpatient Procedures ABG Interpretation ABG Results: 08/18/25 08/18/25 16:05 20:00 VBG pH 7.422 7.463 H VBG pCO2 60 H 50 VBG pO2 30.1 39.2 VBG HCO3 39 H 36 H
--- NOTE | 2025-08-18 16:27 | CRLHL7_ITS ---
For Patients: As a result of the Century Cures Act, medical imaging exams and procedure reports are released immediately into your electronic medical record. You may view this report before your referring provider. If you have questions, please contact your health care provider. Indication: HYPOXIA, COUGH Technique: PA and lateral views of the chest. Comparison: 06/24/2025. Findings: Low lung findings. Mildly enlarged cardiomediastinal silhouette. Moderate interstitial prominence. Retrocardiac opacity with small left pleural effusion. No visualized pneumothorax. Mild degenerative changes of the visualized spine with partial visualization of thoracolumbar posterior spinal fusion. Impression: Moderate interstitial prominence and small left pleural effusion are compatible with pulmonary edema, though atypical infection may have a similar appearance. Retrocardiac opacity may represent atelectasis. Dictated by Anirudh Rolon MD @ 08/18/2025 6:01:52 PM (Electronically Signed)
--- NOTE | 2025-08-18 16:27 | CRLHL7_ITS ---
For Patients: As a result of the Century Cures Act, medical imaging exams and procedure reports are released immediately into your electronic medical record. You may view this report before your referring provider. If you have questions, please contact your health care provider. INDICATION: Left frontal headache. TECHNIQUE: CT head without contrast. COMPARISON: None. FINDINGS: CSF spaces: Mild diffuse parenchymal volume loss. Brain parenchyma and extra-axial spaces: Mild chronic white matter ischemic disease. The kinsey-white differentiation is normal. No sign of mass, hemorrhage, or midline shift. No extra-axial fluid collection. Skull base and calvarium: The visualized paranasal sinuses and mastoid air cells demonstrate no acute or significant findings. The visualized orbits are grossly unremarkable. No skull fractures. IMPRESSION: No acute intracranial abnormality on this noncontrast study. Mild diffuse parenchymal volume loss and chronic white matter ischemic disease. Please note that all CT scans at this facility use dose modulation, iterative reconstruction, and/or weight-based dosing when appropriate to reduce radiation dose to as low as reasonably achievable. Dictated by Wale Abbasi MD @ 08/18/2025 5:59:50 PM (Electronically Signed)
[2025-08-18 16:34] LABS: HCO3 VBG 39 mmol/L (21-28); Lactate* 3.0 mmol/L (0.5-1.9); PCO2 VBG 60 mmHG (40-50); PO2 VBG 30.1 mmHG (25-47); pH VBG 7.422 (7.32-7.43)
[2025-08-18 16:38] LABS: Hematocrit* 36.4 % (33.0-51.0); Hemoglobin* 10.8 gm/dL (12.0-16.0); Immature Granulocytes Abs Auto 0.02 K/uL (0.00-0.30); Immature Granulocytes Pct Auto 0.2 %; Mean Corpuscular HGB Conc 30 gm/dL (32-36); Mean Corpuscular Hemoglobin 28 pg (26-34); Mean Corpuscular Volume 94 fL (80-100); RDW Coefficient of Variation % 15.8 % (11.5-15.5); Red Blood Count* 3.88 m/uL (4.00-5.20); White Blood Count* 8.27 K/uL (4.50-11.00)
[2025-08-18 16:39] LABS: Lymphocytes Absolute Auto 1.60 K/uL (0.90-2.90); Slide Review Reflex No
[2025-08-18 16:53] LABS: Albumin* 3.9 g/dL (3.3-5.0); Chloride* 93 mmol/L (96-114)
[2025-08-18] MEDS: 0.9 % SODIUM CHLORIDE 250 ml 250 ML IV (16:53)
[2025-08-18 16:54] LABS: Potassium* 4.5 mmol/L (3.6-5.1); Sodium* 137 mmol/L (135-149)
[2025-08-18] MEDS: HYDROCORTISONE SOD SUCCINATE 50 MG/ML inj 100 MG IVP (16:54)
[2025-08-18 16:56] LABS: Blood Urea Nitrogen* 19 mg/dL (7-30); Creatinine* 1.1 mg/dL (0.5-1.5); Est. Creatinine Clearance* 40.49; Estimated Glomerular Filt Rate 55 ml/min
[2025-08-18 16:57] LABS: Alanine Aminotransferase* 14 U/L (4-35); Alkaline Phosphatase* 56 U/L (40-150); Anion Gap 4 mEq/L (7-15); Aspartate Amino Transferase* 42 U/L (12-35); Bilirubin Total* 0.6 mg/dL (0.1-1.5); Calcium* 8.8 mg/dL (8.4-10.6); Carbon Dioxide* 40 mmol/L (20-32); Glucose* 114 mg/dL (60-115); Total Protein* 7.4 g/dL (6.0-8.3)
[2025-08-18] MEDS: METOCLOPRAMIDE HCL 5 MG/ML INJ 10 MG IVP (16:58)
[2025-08-18 17:08] LABS: NT Pro B Type NatriureticPept* 4060 pg/mL (See Note)
[2025-08-18 17:28] LABS: TSH With Reflex to FT4* 4.130 uIU/mL (0.270-4.200)
[2025-08-18 18:20] LABS: PCR FLU A Negative PCR FLU A (Negative); PCR FLU B Negative PCR FLU B (Negative); PCR RSV Negative PCR RSV (Negative); SARS PCR* Negative SARS-CoV-2 (Negative)
--- NOTE | 2025-08-18 18:20 | RESP.RT ---
Patient is currently on 6L Oxymask while resting. Patient appears to be up on fluid with wrapped feet and legs. Chest x-ray is also fluffy. While patient is resting she has apneic periods that have her SATs drop into the upper 70s. Patient could benefit from having some fluid taken off and keeping her head elevated. If SATs continue to drop CPAP maybe needed.
[2025-08-18 20:13] LABS: HCO3 VBG 36 mmol/L (21-28); PCO2 VBG 50 mmHG (40-50); PO2 VBG 39.2 mmHG (25-47); pH VBG 7.463 (7.32-7.43)
--- NOTE | 2025-08-18 22:52 | PM.IMHP1 ---
Assessment and Plan Assessment and plan (1) Acute on chronic hypoxic respiratory failure: Problem comment: - Presumably HFpEF exacerbation as source; also has history of COPD and untreated ANTHONY - possible atypical infection on chest x-ray obtained 08/18/25; given comorbidities and COPD, will cover with ceftriaxone and doxycycline - VBG reassuring so no need for BIPAP at this time, will follow - diuresis and follow Is/Os closely - not wheezing, prn nebulizers available and will continue home COPD medications - RT referral - CCU status Status: Acute (2) Acute on chronic heart failure: Problem comment: - HFpEF with clinical concern for exacerbation given hypoxia - Hart placed given need to follow Is and Os in addition to decreased LOC, IV Lasix ordered on admission - last TTE 06/21/2025: Final Impressions: 1. Normal LV size, normal wall thickness, normal global systolic function with an estimated EF of 60 - 65%. 2. Right ventricular cavity size is mildly enlarged, global systolic RV function is normal. 3. Grade 2 pattern of LV diastolic filling. Increased left atrial pressure. 4. The aortic valve is bicuspid, mild stenosis and no regurgitation. 5. Mild-moderate tricuspid regurgitation. 6. The inferior vena cava is dilated, respiratory size variation less than 50%. 7. Dilated ascending aorta, diameter of 4.1 cm (upper limit of normal for age, sex, and BSA is 4.0 cm*), Height Index 2.56. 8. Dilated sinus of Valsalva, diameter of 4.0 cm (upper limit of normal for age, sex, and BSA is 3.8 cm*), Height Index 2.50 cm/m. 9. Echo contrast was administered to enhance visualization of all left ventricular segments. Status: Acute (3) Acute alteration in mental status: Problem comment: - decreased level of LOC in ER; on the floor, awakened to voice and conversed normally during admission, although sleepy - possibly iatrogenic (on Tramadol and Gabapentin) vs ANTHONY somnolence/obesity hypoventilation syndrome, VBG reassuring and drug screen negative Status: Acute (4) Obstructive sleep apnea: Problem comment: - outside records indicate she has ANTHONY but is noncompliant with CPAP Status: Acute (5) History of pulmonary embolism: Problem comment: - Eliquis Status: Chronic (6) Chronic a-fib: Problem comment: - Eliquis for stroke prophylaxis and metoprolol + Amiodarone for rate control Status: Acute (7) Diabetes: Problem comment: - on Metformin and Jardiance as an outpatient, most recent A1C 6.5 06/2025 Status: Acute (8) Chronic adrenal insufficiency: Problem comment: - on Hydrocortisone 10mg Qam and 5mg Qpm - received 100mg Hydrocortisone in ER, will repeat overnight and resume home dosing in the morning (vs continued IV dosing pending clinical course) Status: Acute (9) Lymphedema: Problem comment: - fairly new diagnosis, per sister and [id number] - will add edema wear and continue to monitor venous stasis of BLE Status: Acute (10) Venous stasis dermatitis of both lower extremities: Problem comment: - no evidence of acute infection. Toes also exhibit erythema and edema Status: Acute (11) Headache: Problem comment: - noted on arrival to ED, given Toradol and Reglan with relief - negative head CT, no headache complaints upon arrival to floor Status: Acute Plan - per above - CCU status, requires inpatient management given acuity of disease and significant comorbid conditions - sister and FERNIE updated by phone, questions answered - DNR/DNI, pressors and/or BIPAP damon Hospitalist- H&P: HPI History of Present Illness Date Seen: 08/18/25 Chief complaint: SOB, weakness Narrative: Gemini Wang is a 70 year old female who presented to the hospital from the [facility] for sleepiness/lethargy. She was brought in by EMS and noted to be hypoxic during transport; she also complained of a headache. Hospitalized here in June for respiratory failure and shock, requiring BiPAP, IV steroids, IV norepinephrine. ER course and findings: - given Reglan and ketorolac with resolution of headache; head CT negative - EKG baseline (a fib, rate 50s) - oxygen saturation as low as 84% on RA - VBG reassuring (initial VBG with CO2 of 60, improved upon repeat), treated with supplemental oxygen - CXR c/w pulmonary edema, possible atypical infection - decreased LOC Gemini is admitted to the hospital for acute hypoxic respiratory failure. She has multiple comorbidities, noted below. Review of Systems Status of ROS: Reports: 10 or more systems reviewed and unremarkable except as noted in History and below Medical Decision Making Medical Decision Making Code Status: DNR/DNI During This Stay, Who Would You Like To Make Decisions For You In The Event You Are Unable To Make Them For Yourself?: Sister Yursa (Nevaeh) Relevant situational information: Pressors and Bipap okay [facility] Medical History (Updated 08/18/25 @ 23:35 by Mariana Nichols MD) Venous stasis dermatitis of both lower extremities ?I87.2 - Venous insufficiency (chronic) (peripheral) (ICD-10) Lymphedema ?I89.0 - Lymphedema, not elsewhere classified (ICD-10) Polypharmacy ?Z79.899 - Other ferry terminal agent (current) drug therapy (ICD-10) History of pulmonary embolism ?Z86.711 - Personal history of pulmonary embolism (ICD-10) Epilepsy ?G40.909 - Epilepsy, unspecified, not intractable, without status epilepticus (ICD-10) Diabetes ?E11.9 - Type 2 diabetes mellitus without complications (ICD-10) Chronic adrenal insufficiency ?E27.40 - Unspecified adrenocortical insufficiency (ICD-10) History of COPD ?Z87.09 - Personal history of other diseases of the respiratory system (ICD-10) Obstructive sleep apnea ?G47.33 - Obstructive sleep apnea (adult) (pediatric) (ICD-10) 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 ?F06.70 - Mild neurocognitive disorder due to known physiological condition without behavioral disturbance (ICD-10) H/O stroke without residual deficits ?Z86.73 - Personal history of transient ischemic attack (TIA), and cerebral infarction without residual deficits (ICD-10) Transient ischemic attack (TIA) ?G45.9 - Transient cerebral ischemic attack, unspecified (ICD-10) Pulmonary embolus ?I26.99 - Other pulmonary embolism without acute cor pulmonale (ICD-10) Unspecified adrenocortical insufficiency ?E27.40 - Unspecified adrenocortical insufficiency (ICD-10) Diabetes type 2 ?E11.9 - Type 2 diabetes mellitus without complications (ICD-10) GERD without esophagitis ?K21.9 - Gastro-esophageal reflux disease without esophagitis (ICD-10) Chronic idiopathic constipation ?K59.04 - Chronic idiopathic constipation (ICD-10) PTSD (post-traumatic stress disorder) ?F43.10 - Post-traumatic stress disorder, unspecified (ICD-10) Anxiety ?F41.9 - Anxiety disorder, unspecified (ICD-10) Nonintractable epilepsy with complex partial seizures ?G40.209 - Localization-related (focal) (partial) symptomatic epilepsy and epileptic syndromes with complex partial seizures, not intractable, without status epilepticus (ICD-10) Rheumatoid arthritis ?M06.9 - Rheumatoid arthritis, unspecified (ICD-10) Acute on chronic diastolic (congestive) heart failure ?I50.33 - Acute on chronic diastolic (congestive) heart failure (ICD-10) Acute respiratory failure with hypoxia and hypercapnia ?J96.01 - Acute respiratory failure with hypoxia (ICD-10) ?J96.02 - Acute respiratory failure with hypercapnia (ICD-10) Opioid dependence ?F11.20 - Opioid dependence, uncomplicated (ICD-10) Cellulitis of both lower extremities ?L03.115 - Cellulitis of right lower limb (ICD-10) ?L03.116 - Cellulitis of left lower limb (ICD-10) Chronic hypoxemic respiratory failure ?J96.11 - Chronic respiratory failure with hypoxia (ICD-10) Chronic obstructive pulmonary disease on long-term inhaled steroid therapy ?J44.9 - Chronic obstructive pulmonary disease, unspecified (ICD-10) ?Z79.51 - [facility] (current) use of inhaled steroids (ICD-10) CHF (congestive heart failure) ?I50.9 - Heart failure, unspecified (ICD-10) Acute hyponatremia ?E87.1 - Hypo-osmolality and hyponatremia (ICD-10) Class 2 severe obesity with serious comorbidity in adult ?E66.812 - Obesity, class 2 (ICD-10) ?E66.01 - Morbid (severe) obesity due to excess calories (ICD-10) Seizure ?R56.9 - Unspecified convulsions (ICD-10) Paroxysmal atrial fibrillation ?I48.0 - Paroxysmal atrial fibrillation (ICD-10) Bicuspid aortic valve ?Q23.81 - Bicuspid aortic valve (ICD-10) Asthma ?J45.909 - Unspecified asthma, uncomplicated (ICD-10) Aortic aneurysm ?I71.9 - Aortic aneurysm of unspecified site, without rupture (ICD-10) Adrenal insufficiency ?E27.40 - Unspecified adrenocortical insufficiency (ICD-10) Surgical History H/O: hysterectomy ?Z90.710 - Acquired absence of both cervix and uterus (ICD-10) History of cholecystectomy ?Z90.49 - Acquired absence of other specified parts of digestive tract (ICD-10) Social History (Updated 08/18/25 @ 23:05 by Mariana Nichols MD) Narrative: Lives at [facility], sister Nevaeh is POA. Former smoker, no ETOH. DNR/DNI What is your current living situation?: unable to answer Problems where you live: unable to answer Problems where you live details: Pt unable to answer In the past 12 months, utilities in danger of being shut off: unable to answer In past 12 months, lack of transportation kept you from medical appts, meetings, work, or getting things needed for daily living: unable to answer In the past 12 mos, have been you worried that your food would run out before you had money to buy more?: unable to answer In the past 12 mos, the food you bought just didn't last and you didn't have money to buy more?: unable to answer Highest level of school completed/degree received: don't know Smoking Status: Unknown if ever smoked Do you use any of these nicotine containing products: None How often do you have a drink containing alcohol: never AUDIT-C Alcohol total score: 0 Non-prescribed substance use details: Pt unable answer How often does anyone, including family, friends and others, physically hurt you: unable to answer How often does anyone, including family, friends and others, insult or talk down to you: unable to answer How often does anyone, including family, friends and others, threaten you with harm: unable to answer How often does anyone, including family, friends and others, scream or curse at you: unable to answer Meds Home Medications and Allergies Home Medications ?Medication ?Instructions ?Recorded ?Confirmed ?Type acetaminophen 325 mg tablet 650 mg PO TID 06/21/25 06/21/25 History amiodarone 200 mg tablet 200 mg PO DAILY 06/21/25 06/21/25 History ammonium lactate 12 % topical cream 1 applic topical BID 06/21/25 06/21/25 History apixaban 5 mg tablet (Eliquis) 5 mg PO BID 06/21/25 06/21/25 History ascorbic acid (vitamin C) 1,000 mg 1,000 mg PO BID 06/21/25 06/21/25 History tablet calcium 600 mg (as 1 tab PO BID 06/21/25 06/21/25 History carbonate)-vitamin D3 10 mcg (400 unit) tablet cholecalciferol (vitamin D3) 125 125 mcg PO QAM 06/21/25 06/21/25 History mcg (5,000 unit) capsule cyanocobalamin (vitamin B-12) 500 500 mcg PO DAILY 06/21/25 06/21/25 History mcg tablet diclofenac sodium 1 % topical gel 4 g topical QID 06/21/25 06/21/25 History divalproex 500 mg tablet,extended 2,000 mg PO HS 06/21/25 06/21/25 History release 24 hr ergocalciferol (vitamin D2) 1,250 1,250 mcg PO .sat 06/21/25 06/21/25 History mcg (50,000 unit) capsule fluticasone fur. 100 mcg-umeclid 1 inh inhalation DAILY 06/21/25 06/21/25 History 62.5 mcg-vilant 25 mcg inhalat.powder (Trelegy Ellipta) fluticasone propionate 50 2 spray intranasal DAILY 06/21/25 06/21/25 History mcg/actuation nasal spray,suspension (24 Hour Allergy Relief) guaifenesin 100 mg/5 mL oral 200 mg PO Q4H PRN 06/21/25 06/21/25 History liquid (Chest Congestion Relief) hydrocortisone 10 mg tablet 5 mg PO QPM 06/21/25 06/21/25 History hydrocortisone 10 mg tablet 10 mg PO DAILY 06/21/25 06/21/25 History (Cortef) levothyroxine 25 mcg tablet 25 mcg PO DAILY 06/21/25 06/21/25 History lidocaine 4 % topical patch 1 patch topical DAILY@19 06/21/25 06/21/25 History melatonin 5 mg tablet 5 mg PO HS insomnia 06/21/25 06/21/25 History montelukast 10 mg tablet 10 mg PO DAILY 06/21/25 06/21/25 History multivitamin with folic acid 400 1 tab PO DAILY 06/21/25 06/21/25 History mcg tablet (Tab-A-Tiffanie) naloxone 4 mg/actuation nasal 4 mg intranasal Q2M PRN 06/21/25 06/21/25 History spray (Narcan) polyethylene glycol 3350 17 gram 17 g PO DAILY PRN 06/21/25 06/21/25 History oral powder packet (Gavilax) rimegepant 75 mg disintegrating 75 mg PO DAILY PRN 06/21/25 06/21/25 History tablet (Nurtec ODT) rosuvastatin 20 mg tablet 20 mg PO HS 06/21/25 06/21/25 History sennosides 8.6 mg-docusate sodium 1 tab-cap PO DAILY PRN 06/21/25 06/21/25 History 50 mg tablet (Colace 2-In-1) sertraline 25 mg tablet 25 mg PO DAILY 06/21/25 06/21/25 History sodium chloride 0.65 % nasal spray 1 spray intranasal BID 06/21/25 06/21/25 History aerosol (Deep Sea Nasal) tiotropium bromide 2.5 2 inh inhalation DAILY 06/21/25 06/21/25 History mcg/actuation mist for inhalation (Spiriva Respimat) torsemide 20 mg tablet 40 mg PO DAILY 06/21/25 06/21/25 History gabapentin 400 mg capsule 400 mg PO DAILY #30 caps 06/26/25 06/21/25 Rx metoprolol tartrate 25 mg tablet 37.5 mg (1.5 x 25 mg) PO BID #45 06/26/25 06/21/25 Rx tabs empagliflozin 10 mg tablet 10 mg PO QAM #30 tabs 06/27/25 Rx (Jardiance) metformin 500 mg tablet,extended 500 mg PO DAILY #30 tabs 06/27/25 Rx release 24 hr potassium chloride 10 mEq 10 meq PO DAILY #30 caps 06/27/25 Rx capsule,extended release Allergies Allergy/AdvReac Type Severity Reaction Status Date / Time aspirin Allergy Severe gi bleed Verified 06/20/25 22:23 codeine Allergy Severe Migraine Verified 06/20/25 22:23 cucumber Allergy Severe angioedema Verified 06/20/25 22:23 NSAIDS (Non-Steroidal Allergy Severe gi bleed Verified 06/20/25 22:23 Anti-Inflamma lactase Allergy Intermediate gi upset Verified 06/20/25 22:23 sulfamethoxazole (From Allergy Intermediate Hives Verified 06/20/25 22:23 Bactrim) sumatriptan Allergy Intermediate worsening Verified 06/20/25 22:23 headache trimethoprim (From Bactrim) Allergy Intermediate Hives Verified 06/20/25 22:23 levofloxacin Allergy Mild Rash Verified 06/20/25 22:23 Exam Narrative: Exam Narrative: GEN: Laying comfortably in bed, arouses to voice. Appears tired but not obtunded, nontoxic HEENT: EOMIs bilaterally, no scleral icterus CV: RRR, No concerning murmurs, rubs, or gallops R: Bibasilar rales, no wheezing Ext: Edema BLE, nonpitting Skin: Erythema of BLE c/w venous stasis dermatitis. Her toes are also erythematous and edematous with thickened skin noted Neuro: Following commands, no resting tremor. Gait not observed Psych: Appropriate Const: Vital Signs, click to edit/add: Vital Signs - 24 hr 08/18/25 15:54 08/18/25 15:59 08/18/25 16:00 Temperature Pulse Rate 52 L 48 L 47 L Pulse Rate [Pulse Oximeter] Respiratory Rate 18 Blood Pressure 101/67 Blood Pressure [Ri ght Upper Arm] Pulse Oximetry 86 L 89 Oxygen Delivery Me thod Nasal Cannula Oxygen Flow Rate 5 08/18/25 16:04 08/18/25 16:13 08/18/25 16:15 Temperature 97.6 F Pulse Rate 48 L 47 L Pulse Rate [Pulse Oximeter] 47 L Respiratory Rate 22 16 18 Blood Pressure 121/22 L Blood Pressure [Ri ght Upper Arm] 101/67 Pulse Oximetry 97 88 90 Oxygen Delivery Me thod Nasal Cannula OxyMask Oxygen Flow Rate 2 8 08/18/25 16:17 08/18/25 16:18 08/18/25 16:30 Temperature Pulse Rate 47 L 46 L 48 L Pulse Rate [Pulse Oximeter] Respiratory Rate 17 16 Blood Pressure 95/61 Blood Pressure [Ri ght Upper Arm] Pulse Oximetry 91 87 L 83 L Oxygen Delivery Me thod Oxygen Flow Rate 08/18/25 16:31 08/18/25 16:40 08/18/25 16:50 Temperature Pulse Rate 48 L 48 L Pulse Rate [Pulse Oximeter] Respiratory Rate 18 15 Blood Pressure 102/63 87/52 L Blood Pressure [Ri ght Upper Arm] Pulse Oximetry 85 L 82 L Oxygen Delivery Me thod Nasal Cannula Oxygen Flow Rate 5 08/18/25 16:56 08/18/25 17:00 08/18/25 17:01 Temperature Pulse Rate 48 L 48 L 48 L Pulse Rate [Pulse Oximeter] Respiratory Rate 20 15 Blood Pressure 81/68 L 108/73 Blood Pressure [Ri t Upper Arm] Pulse Oximetry 90 91 Oxygen Delivery Me thod OxyMask Oxygen Flow Rate 8 08/18/25 17:02 08/18/25 17:35 08/18/25 17:36 Temperature Pulse Rate 47 L 54 L 50 L Pulse Rate [Pulse Oximeter] Respiratory Rate 15 14 Blood Pressure Blood Pressure [Ri t Upper Arm] Pulse Oximetry 89 90 Oxygen Delivery Me thod OxyMask Oxygen Flow Rate 8 08/18/25 17:39 08/18/25 17:46 08/18/25 18:00 Temperature Pulse Rate 49 L 50 L 50 L Pulse Rate [Pulse Oximeter] Respiratory Rate 19 20 14 Blood Pressure 100/56 L 102/57 L Blood Pressure [Ri t Upper Arm] Pulse Oximetry 90 90 88 Oxygen Delivery Me thod OxyMask OxyMask Oxygen Flow Rate 8 8 08/18/25 18:02 08/18/25 18:03 08/18/25 18:15 Temperature Pulse Rate 50 L 50 L 49 L Pulse Rate [Pulse Oximeter] Respiratory Rate 20 20 28 H Blood Pressure 88/52 L Blood Pressure [Ri t Upper Arm] Pulse Oximetry 88 87 L 86 L Oxygen Delivery Me thod Oxygen Flow Rate 08/18/25 18:16 08/18/25 18:30 08/18/25 18:31 Temperature Pulse Rate 48 L 50 L 50 L Pulse Rate [Pulse Oximeter] Respiratory Rate 15 14 20 Blood Pressure 90/58 L 99/60 Blood Pressure [Ri t Upper Arm] Pulse Oximetry 85 L 84 L 84 L Oxygen Delivery Me thod Oxygen Flow Rate 08/18/25 18:45 08/18/25 18:46 08/18/25 19:00 Temperature Pulse Rate 49 L 49 L 50 L Pulse Rate [Pulse Oximeter] Respiratory Rate 12 13 14 Blood Pressure 88/58 L Blood Pressure [Ri t Upper Arm] Pulse Oximetry 84 L 84 L 84 L Oxygen Delivery Me thod Oxygen Flow Rate 08/18/25 19:01 08/18/25 19:05 08/18/25 19:09 Temperature Pulse Rate 49 L 50 L Pulse Rate [Pulse Oximeter] 50 L Respiratory Rate 14 27 H 20 Blood Pressure 88/56 L 91/59 L Blood Pressure [Ri ght Upper Arm] 91/59 L Pulse Oximetry 84 L 84 L 88 Oxygen Delivery Me thod OxyMask Oxygen Flow Rate 10 08/18/25 19:15 08/18/25 19:16 08/18/25 19:30 Temperature Pulse Rate 49 L 50 L 48 L Pulse Rate [Pulse Oximeter] Respiratory Rate 16 13 15 Blood Pressure 102/63 Blood Pressure [Ri ght Upper Arm] Pulse Oximetry 89 90 90 Oxygen Delivery Me thod Oxygen Flow Rate 08/18/25 19:31 08/18/25 19:49 08/18/25 20:00 Temperature Pulse Rate 48 L Pulse Rate [Pulse Oximeter] Respiratory Rate 13 15 14 Blood Pressure 101/68 Blood Pressure [Ri ght Upper Arm] Pulse Oximetry 90 Oxygen Delivery Me thod Oxygen Flow Rate 08/18/25 20:05 08/18/25 20:09 08/18/25 20:12 Temperature Pulse Rate 50 L Pulse Rate [Pulse Oximeter] Respiratory Rate 18 14 15 Blood Pressure 115/65 109/63 Blood Pressure [Ri ght Upper Arm] Pulse Oximetry 87 L Oxygen Delivery Me thod Oxygen Flow Rate 08/18/25 20:15 08/18/25 20:17 08/18/25 20:18 Temperature Pulse Rate 49 L 50 L 49 L Pulse Rate [Pulse Oximeter] Respiratory Rate 13 14 12 Blood Pressure 107/62 Blood Pressure [Ri ght Upper Arm] Pulse Oximetry 87 L 86 L 84 L Oxygen Delivery Me thod OxyMask OxyMask Oxygen Flow Rate 5 5 08/18/25 20:50 08/18/25 20:50 08/18/25 20:51 Temperature Pulse Rate 50 L 50 L Pulse Rate [Pulse Oximeter] 0 L Respiratory Rate 20 12 13 Blood Pressure 104/59 L Blood Pressure [Ri ght Upper Arm] 104/59 L Pulse Oximetry 88 86 L 85 L Oxygen Delivery Me thod OxyMask OxyMask OxyMask Oxygen Flow Rate 5 8 8 08/18/25 21:00 Temperature Pulse Rate 51 L Pulse Rate [Pulse Oximeter] Respiratory Rate 13 Blood Pressure Blood Pressure [Ri ght Upper Arm] Pulse Oximetry 88 Oxygen Delivery Me thod OxyMask Oxygen Flow Rate 8 Hospitalist - H&P: Result Labs Labs: Short CBC 08/18/25 Range/Units 16:05 WBC 8.27 (4.50-11.00) K/uL Hgb 10.8 L (12.0-16.0) gm/dL Hct 36.4 (33.0-51.0) % Plt Count 188 (140-440) K/uL BMP 08/18/25 16:05 Sodium 137 Potassium 4.5 Chloride 93 L Carbon Dioxide 40 H BUN 19 Creatinine 1.1 Glucose 114 Calcium 8.8 Cardiac Enzymes 08/18/25 Range/Units 16:05 Troponin I 0.01 (0.01-0.04) ng/mL Liver Function 08/18/25 Range/Units 16:05 Total Bilirubin 0.6 (0.1-1.5) mg/dL AST 42 H (12-35) U/L ALT 14 (4-35) U/L Alkaline Phosphatase 56 (40-150) U/L Albumin 3.9 (3.3-5.0) g/dL
[2025-08-18 23:04] LABS: Cannabinoid Screen Urine Negative (Negative); Methamphetamines Screen Urine Negative (Negative); Tricyclic Antidepressant Urine Negative (Negative)
[2025-08-18] MEDS: FUROSEMIDE 10 MG/ML inj 40 MG IVP (23:04)
[2025-08-18] MEDS: SODIUM CHLORIDE 0.9 % (FLUSH) 10 ML SYRINGE 5 ML IVF ×2 (23:07→23:56)
--- NOTE | 2025-08-18 23:54 | PC.NURSE ---
End of Shift: Patient admitted to 245. Alert to self, month/year and that she is in a hospital. OxyMask at 6-8L to keep says greater than 88%. Hart placed.
[2025-08-18] MEDS: cefTRIAXone 1 GM in 0.9 % SODIUM CHLORIDE Mini-bag 100 ML IVPB (23:56)
[2025-08-18] MEDS: APIXABAN 5 MG TABLET PO (23:58)
[2025-08-18] MEDS: DOXYCYCLINE HYCLATE 100 MG PO (23:59)
[2025-08-19] VITALS (19 sets, daily range): BP systolic 93–126; BP diastolic 54–75; PULSE 50–91; RESP 14–20; TEMP 36.4–37.1; O2SAT 86–95
[2025-08-19] MEDS: DIVALPROEX SODIUM ER TAB 250 MG 2000 MG PO ×2 (00:01→21:15)
[2025-08-19] MEDS: SODIUM CHLORIDE 0.9 % (FLUSH) 10 ML SYRINGE 5 ML IVF ×3 (00:09→21:17)
[2025-08-19] MEDS: HYDROCORTISONE SOD SUCCINATE 50 MG/ML inj 100 MG IVP (00:09)
[2025-08-19] MEDS: LEVOTHYROXINE 25 MCG TABLET PO (05:35)
[2025-08-19 06:03] LABS: HCO3 VBG 39 mmol/L (21-28); Hematocrit* 33.9 % (33.0-51.0); Hemoglobin* 10.2 gm/dL (12.0-16.0); Immature Granulocytes Abs Auto 0.04 K/uL (0.00-0.30); Immature Granulocytes Pct Auto 0.7 %; Mean Corpuscular HGB Conc 30 gm/dL (32-36); Mean Corpuscular Hemoglobin 28 pg (26-34); Mean Corpuscular Volume 93 fL (80-100); PCO2 VBG 57 mmHG (40-50); PO2 VBG < 30.1 mmHG (25-47); RDW Coefficient of Variation % 16.0 % (11.5-15.5); Red Blood Count* 3.66 m/uL (4.00-5.20); White Blood Count* 5.56 K/uL (4.50-11.00); pH VBG 7.440 (7.32-7.43)
[2025-08-19 06:05] LABS: Lymphocytes Absolute Auto 0.70 K/uL (0.90-2.90); Slide Review Reflex No
[2025-08-19 06:20] LABS: Albumin* 3.4 g/dL (3.3-5.0); Chloride* 96 mmol/L (96-114); Potassium* 4.2 mmol/L (3.6-5.1); Sodium* 139 mmol/L (135-149)
[2025-08-19 06:22] LABS: Blood Urea Nitrogen* 20 mg/dL (7-30); Creatinine* 1.1 mg/dL (0.5-1.5); Est. Creatinine Clearance* 40.49; Estimated Glomerular Filt Rate 55 ml/min
[2025-08-19 06:23] LABS: Alanine Aminotransferase* 9 U/L (4-35); Alkaline Phosphatase* 61 U/L (40-150); Anion Gap 5 mEq/L (7-15); Aspartate Amino Transferase* 24 U/L (12-35); Bilirubin Total* 0.4 mg/dL (0.1-1.5); Calcium* 8.6 mg/dL (8.4-10.6); Carbon Dioxide* 38 mmol/L (20-32); Glucose* 135 mg/dL (60-115); Total Protein* 6.5 g/dL (6.0-8.3)
--- NOTE | 2025-08-19 07:06 | PC.NURSE ---
Pt alert and oriented to self at beginning of shift 2300 but as night when on pt became oriented to place and time as well. Pt was weaned from 6 L O2 oxygen via oxy mask to 1L to maintain O2 stats of 88%. Hart is patent and draining. Pt slept throughout most of night.
[2025-08-19 07:13] LABS: Lactate* 0.9 mmol/L (0.5-1.9)
[2025-08-19] MEDS: ACETAMINOPHEN 500 MG TABLET PO ×2 (08:46→20:40)
[2025-08-19] MEDS: SERTRALINE 50 MG TABLET 25 MG PO (08:46)
[2025-08-19] MEDS: DOXYCYCLINE HYCLATE 100 MG PO ×2 (08:46→21:16)
[2025-08-19] MEDS: AMIODARONE 200 MG TABLET PO (08:46)
[2025-08-19] MEDS: APIXABAN 5 MG TABLET PO ×2 (08:46→21:15)
[2025-08-19] MEDS: HYDROCORTISONE 10 MG TABLET PO ×2 (09:42→17:46)
--- NOTE | 2025-08-19 11:45 | PM.IMPN1 ---
Assessment and Plan Assessment and plan (1) Acute on chronic hypoxic respiratory failure: Problem comment: - Presumably HFpEF exacerbation as source; likely 2/2 PNA (viral v/s atypical). - history of COPD and untreated ANTHONY - possible atypical infection on chest x-ray obtained 08/18/25; given comorbidities and COPD, will cover with ceftriaxone and doxycycline - VBG reassuring so no need for BIPAP at this time, will follow - diuresis and follow Is/Os closely - not wheezing, prn nebulizers available and will continue home COPD medications - RT referral - CCU status - 08/19: lower O2 requirements down to 1.5 L/min. Pt will need Abx + diuresis. Status: Acute (2) Acute on chronic heart failure: Problem comment: - HFpEF with clinical concern for exacerbation given hypoxia - Hart placed given need to follow Is and Os in addition to decreased LOC, IV Lasix ordered on admission - last TTE 06/21/2025: Final Impressions: 1. Normal LV size, normal wall thickness, normal global systolic function with an estimated EF of 60 - 65%. 2. Right ventricular cavity size is mildly enlarged, global systolic RV function is normal. 3. Grade 2 pattern of LV diastolic filling. Increased left atrial pressure. 4. The aortic valve is bicuspid, mild stenosis and no regurgitation. 5. Mild-moderate tricuspid regurgitation. 6. The inferior vena cava is dilated, respiratory size variation less than 50%. 7. Dilated ascending aorta, diameter of 4.1 cm (upper limit of normal for age, sex, and BSA is 4.0 cm*), Height Index 2.56. 8. Dilated sinus of Valsalva, diameter of 4.0 cm (upper limit of normal for age, sex, and BSA is 3.8 cm*), Height Index 2.50 cm/m. 9. Echo contrast was administered to enhance visualization of all left ventricular segments. Status: Acute (3) Acute alteration in mental status: Problem comment: - decreased level of LOC in ER; on the floor, awakened to voice and conversed normally during admission, although sleepy - possibly iatrogenic (on Tramadol and Gabapentin) vs ANTHONY somnolence/obesity hypoventilation syndrome, VBG reassuring and drug screen negative - 08/19: alert, awake Status: Resolved (4) Atypical pneumonia: Problem comment: -Suspected PNA atypical v/s viral. -Cont ceftiaxone + Doxycycline -Ordered Ur Ag strep p. and legionella Status: Acute (5) Chronic adrenal insufficiency: Problem comment: - on Hydrocortisone 10mg Qam and 5mg Qpm - received 100mg Hydrocortisone in ER, will repeat overnight and resume home dosing in the morning (vs continued IV dosing pending clinical course) - 08/19: Doubled the night dose of hydrocortisone. Status: Acute (6) Obstructive sleep apnea: Problem comment: - outside records indicate she has ANTHONY but is noncompliant with CPAP Status: Acute (7) History of pulmonary embolism: Problem comment: - Eliquis Status: Chronic (8) Chronic a-fib: Problem comment: - Eliquis for stroke prophylaxis and metoprolol + Amiodarone for rate control Status: Acute (9) Diabetes: Problem comment: - on Metformin and Jardiance as an outpatient, most recent A1C 6.5 06/2025 Status: Acute (10) Lymphedema: Problem comment: - fairly new diagnosis, per sister and [id number] - will add edema wear and continue to monitor venous stasis of BLE Status: Acute (11) Venous stasis dermatitis of both lower extremities: Problem comment: - no evidence of acute infection. Toes also exhibit erythema and edema Status: Acute (12) Headache: Problem comment: - noted on arrival to ED, given Toradol and Reglan with relief - negative head CT, no headache complaints upon arrival to floor Status: Acute Total Time Spent Total Time Spent: Today I spent 50 minutes seeing the patient, reviewing Expanse and EPIC notes/diagnostics, discussing the care plan with our care time that includes social work, PT/OT, pharmacy, RT, chcf and documenting my impressions and plan in the medical record. Subjective Date Seen: 08/19/25 Interval history: Pt was doing ok today, lower O2 requirements down to 1.5 L/min. Pt will need Abx + diuresis. Doubled the night dose of hydrocortisone. Exam Narrative: Exam Narrative: Physical exam GENERAL: Comfortable, no acute distress. HEAD AND NECK: Atraumatic, normocephalic CARDIOVASCULAR: RRR. Normal S1, S2. No murmurs. RESPIRATORY: Good air entry B/L. +ve Crackles . Pt is on 1.5 L /min O2 NEUROLOGY: Alert, awake, oriented X 3. Normal speech. PSYCH: Normal mood, normal affect. Const: Vital Signs, click to edit/add: Vital Signs - 24 hr 08/18/25 15:54 08/18/25 15:59 08/18/25 16:00 Temperature Pulse Rate 52 L 48 L 47 L Pulse Rate [Left P ulse Oximeter] Pulse Rate [Pulse Oximeter] Respiratory Rate 18 Blood Pressure 101/67 Blood Pressure [Le ft Arm] Blood Pressure [Ri ght Upper Arm] Pulse Oximetry 86 L 89 Oxygen Delivery Me thod Nasal Cannula Oxygen Flow Rate 5 08/18/25 16:04 08/18/25 16:13 08/18/25 16:15 Temperature 97.6 F Pulse Rate 48 L 47 L Pulse Rate [Left P ulse Oximeter] Pulse Rate [Pulse Oximeter] 47 L Respiratory Rate 22 16 18 Blood Pressure 121/22 L Blood Pressure [Le ft Arm] Blood Pressure [Ri ght Upper Arm] 101/67 Pulse Oximetry 97 88 90 Oxygen Delivery Me thod Nasal Cannula OxyMask Oxygen Flow Rate 2 8 08/18/25 16:17 08/18/25 16:18 08/18/25 16:30 Temperature Pulse Rate 47 L 46 L 48 L Pulse Rate [Left P ulse Oximeter] Pulse Rate [Pulse Oximeter] Respiratory Rate 17 16 Blood Pressure 95/61 Blood Pressure [Le ft Arm] Blood Pressure [Ri ght Upper Arm] Pulse Oximetry 91 87 L 83 L Oxygen Delivery Me thod Oxygen Flow Rate 08/18/25 16:31 08/18/25 16:40 08/18/25 16:50 Temperature Pulse Rate 48 L 48 L Pulse Rate [Left P ulse Oximeter] Pulse Rate [Pulse Oximeter] Respiratory Rate 18 15 Blood Pressure 102/63 87/52 L Blood Pressure [Le ft Arm] Blood Pressure [Ri ght Upper Arm] Pulse Oximetry 85 L 82 L Oxygen Delivery Me thod Nasal Cannula Oxygen Flow Rate 5 08/18/25 16:56 08/18/25 17:00 08/18/25 17:01 Temperature Pulse Rate 48 L 48 L 48 L Pulse Rate [Left P ulse Oximeter] Pulse Rate [Pulse Oximeter] Respiratory Rate 20 15 Blood Pressure 81/68 L 108/73 Blood Pressure [Le ft Arm] Blood Pressure [Ri ght Upper Arm] Pulse Oximetry 90 91 Oxygen Delivery Me thod OxyMask Oxygen Flow Rate 8 08/18/25 17:02 08/18/25 17:35 08/18/25 17:36 Temperature Pulse Rate 47 L 54 L 50 L Pulse Rate [Left P ulse Oximeter] Pulse Rate [Pulse Oximeter] Respiratory Rate 15 14 Blood Pressure Blood Pressure [Le ft Arm] Blood Pressure [Ri ght Upper Arm] Pulse Oximetry 89 90 Oxygen Delivery Me thod OxyMask Oxygen Flow Rate 8 08/18/25 17:39 08/18/25 17:46 08/18/25 18:00 Temperature Pulse Rate 49 L 50 L 50 L Pulse Rate [Left P ulse Oximeter] Pulse Rate [Pulse Oximeter] Respiratory Rate 19 20 14 Blood Pressure 100/56 L 102/57 L Blood Pressure [Le ft Arm] Blood Pressure [Ri ght Upper Arm] Pulse Oximetry 90 90 88 Oxygen Delivery Me thod OxyMask OxyMask Oxygen Flow Rate 8 8 08/18/25 18:02 08/18/25 18:03 08/18/25 18:15 Temperature Pulse Rate 50 L 50 L 49 L Pulse Rate [Left P ulse Oximeter] Pulse Rate [Pulse Oximeter] Respiratory Rate 20 20 28 H Blood Pressure 88/52 L Blood Pressure [Le ft Arm] Blood Pressure [Ri ght Upper Arm] Pulse Oximetry 88 87 L 86 L Oxygen Delivery Me thod Oxygen Flow Rate 08/18/25 18:16 08/18/25 18:30 08/18/25 18:31 Temperature Pulse Rate 48 L 50 L 50 L Pulse Rate [Left P ulse Oximeter] Pulse Rate [Pulse Oximeter] Respiratory Rate 15 14 20 Blood Pressure 90/58 L 99/60 Blood Pressure [Le ft Arm] Blood Pressure [Ri ght Upper Arm] Pulse Oximetry 85 L 84 L 84 L Oxygen Delivery Me thod Oxygen Flow Rate 08/18/25 18:45 08/18/25 18:46 08/18/25 19:00 Temperature Pulse Rate 49 L 49 L 50 L Pulse Rate [Left P ulse Oximeter] Pulse Rate [Pulse Oximeter] Respiratory Rate 12 13 14 Blood Pressure 88/58 L Blood Pressure [Le ft Arm] Blood Pressure [Ri ght Upper Arm] Pulse Oximetry 84 L 84 L 84 L Oxygen Delivery Me thod Oxygen Flow Rate 08/18/25 19:01 08/18/25 19:05 08/18/25 19:09 Temperature Pulse Rate 49 L 50 L Pulse Rate [Left P ulse Oximeter] Pulse Rate [Pulse Oximeter] 50 L Respiratory Rate 14 27 H 20 Blood Pressure 88/56 L 91/59 L Blood Pressure [Le ft Arm] Blood Pressure [Ri ght Upper Arm] 91/59 L Pulse Oximetry 84 L 84 L 88 Oxygen Delivery Me thod OxyMask Oxygen Flow Rate 10 08/18/25 19:15 08/18/25 19:16 08/18/25 19:30 Temperature Pulse Rate 49 L 50 L 48 L Pulse Rate [Left P ulse Oximeter] Pulse Rate [Pulse Oximeter] Respiratory Rate 16 13 15 Blood Pressure 102/63 Blood Pressure [Le ft Arm] Blood Pressure [Ri ght Upper Arm] Pulse Oximetry 89 90 90 Oxygen Delivery Me thod Oxygen Flow Rate 08/18/25 19:31 08/18/25 19:49 08/18/25 20:00 Temperature Pulse Rate 48 L Pulse Rate [Left P ulse Oximeter] Pulse Rate [Pulse Oximeter] Respiratory Rate 13 15 14 Blood Pressure 101/68 Blood Pressure [Le ft Arm] Blood Pressure [Ri ght Upper Arm] Pulse Oximetry 90 Oxygen Delivery Me thod Oxygen Flow Rate 08/18/25 20:05 08/18/25 20:09 08/18/25 20:12 Temperature Pulse Rate 50 L Pulse Rate [Left P ulse Oximeter] Pulse Rate [Pulse Oximeter] Respiratory Rate 18 14 15 Blood Pressure 115/65 109/63 Blood Pressure [Le ft Arm] Blood Pressure [Ri ght Upper Arm] Pulse Oximetry 87 L Oxygen Delivery Me thod Oxygen Flow Rate 08/18/25 20:15 08/18/25 20:17 08/18/25 20:18 Temperature Pulse Rate 49 L 50 L 49 L Pulse Rate [Left P ulse Oximeter] Pulse Rate [Pulse Oximeter] Respiratory Rate 13 14 12 Blood Pressure 107/62 Blood Pressure [Le ft Arm] Blood Pressure [Ri ght Upper Arm] Pulse Oximetry 87 L 86 L 84 L Oxygen Delivery Me thod OxyMask OxyMask Oxygen Flow Rate 5 5 08/18/25 20:50 08/18/25 20:50 08/18/25 20:51 Temperature Pulse Rate 50 L 50 L Pulse Rate [Left P ulse Oximeter] Pulse Rate [Pulse Oximeter] 0 L Respiratory Rate 20 12 13 Blood Pressure 104/59 L Blood Pressure [Le ft Arm] Blood Pressure [Ri ght Upper Arm] 104/59 L Pulse Oximetry 88 86 L 85 L Oxygen Delivery Me thod OxyMask OxyMask OxyMask Oxygen Flow Rate 5 8 8 08/18/25 21:00 08/18/25 21:50 08/18/25 22:30 Temperature 98.1 F Pulse Rate 51 L Pulse Rate [Left P ulse Oximeter] 57 L 57 L Pulse Rate [Pulse Oximeter] Respiratory Rate 13 14 Blood Pressure Blood Pressure [Le ft Arm] 118/58 L 122/71 Blood Pressure [Ri ght Upper Arm] Pulse Oximetry 88 93 Oxygen Delivery Me thod OxyMask OxyMask Oxygen Flow Rate 8 8 08/18/25 22:43 08/18/25 23:00 08/18/25 23:00 Temperature Pulse Rate Pulse Rate [Left P ulse Oximeter] 55 L 55 L Pulse Rate [Pulse Oximeter] Respiratory Rate 14 Blood Pressure Blood Pressure [Le ft Arm] 103/62 Blood Pressure [Ri ght Upper Arm] Pulse Oximetry 93 Oxygen Delivery Me thod OxyMask Oxygen Flow Rate 8 08/18/25 23:31 08/19/25 00:00 08/19/25 01:05 Temperature 97.8 F Pulse Rate 55 L Pulse Rate [Left P ulse Oximeter] 53 L 52 L Pulse Rate [Pulse Oximeter] Respiratory Rate 16 14 Blood Pressure Blood Pressure [Le ft Arm] 106/59 L 97/56 L Blood Pressure [Ri ght Upper Arm] Pulse Oximetry 88 88 Oxygen Delivery Me thod OxyMask OxyMask Oxygen Flow Rate 3 3 08/19/25 01:20 08/19/25 02:00 08/19/25 03:13 Temperature 97.6 F 97.6 F Pulse Rate 51 L Pulse Rate [Left P ulse Oximeter] 51 L 50 L Pulse Rate [Pulse Oximeter] Respiratory Rate 16 14 Blood Pressure Blood Pressure [Le ft Arm] 101/55 L 102/55 L Blood Pressure [Ri ght Upper Arm] Pulse Oximetry 90 88 Oxygen Delivery Me thod OxyMask OxyMask Oxygen Flow Rate 3 3 08/19/25 03:13 08/19/25 04:00 08/19/25 06:00 Temperature 97.8 F 97.7 F Pulse Rate Pulse Rate [Left P ulse Oximeter] 51 L 54 L 56 L Pulse Rate [Pulse Oximeter] Respiratory Rate 16 18 20 Blood Pressure Blood Pressure [Le ft Arm] 112/67 109/62 Blood Pressure [Ri ght Upper Arm] Pulse Oximetry 90 89 Oxygen Delivery Me thod OxyMask OxyMask Oxygen Flow Rate 1 1 08/19/25 07:00 08/19/25 07:00 08/19/25 07:00 Temperature Pulse Rate 56 L Pulse Rate [Left P ulse Oximeter] 57 L Pulse Rate [Pulse Oximeter] Respiratory Rate 20 20 Blood Pressure Blood Pressure [Le ft Arm] Blood Pressure [Ri ght Upper Arm] Pulse Oximetry 88 Oxygen Delivery Me thod OxyMask Oxygen Flow Rate 1 08/19/25 08:00 08/19/25 10:00 08/19/25 11:00 Temperature 98.6 F 97.6 F Pulse Rate Pulse Rate [Left P ulse Oximeter] 56 L 61 61 Pulse Rate [Pulse Oximeter] Respiratory Rate 20 20 20 Blood Pressure Blood Pressure [Le ft Arm] 104/59 L 117/75 Blood Pressure [Ri ght Upper Arm] Pulse Oximetry 88 91 Oxygen Delivery Me thod OxyMask Nasal Cannula Oxygen Flow Rate 1 1 Labs Labs: Laboratory Results - last 24 hr 08/18/25 08/18/25 08/18/25 16:05 16:40 20:00 WBC 8.27 RBC 3.88 L Hgb 10.8 L Hct 36.4 MCV 94 MCH 28 MCHC 30 L RDW Coeff of Nicci 15.8 H Plt Count 188 Neut % (Auto) 70.0 Lymph % (Auto) 19.1 L Powell % (Auto) 9.2 Eos % (Auto) 0.8 Baso % (Auto) 0.7 Neut # (Auto) 5.78 Lymph # (Auto) 1.60 Powell # (Auto) 0.80 Eos # (Auto) 0.07 Baso # (Auto) 0.06 Abs Immat Gran (auto) 0.02 Imm/Tot Granulo (auto) 0.2 VBG pH 7.422 7.463 H VBG pCO2 60 H 50 VBG pO2 30.1 39.2 VBG HCO3 39 H 36 H Sodium 137 Potassium 4.5 Chloride 93 L Carbon Dioxide 40 H Anion Gap 4 L BUN 19 Creatinine 1.1 Estimated Creat Clear 40.49 Estimated GFR 55 Glucose 114 Lactate 3.0 H Calcium 8.8 Magnesium 2.0 Total Bilirubin 0.6 AST 42 H ALT 14 Alkaline Phosphatase 56 Troponin I 0.01 C-Reactive Protein 3.6 H NT-Pro-B Natriuret Pep 4060 H Total Protein 7.4 Albumin 3.9 TSH 4.130 Urine Opiates Screen Ur Oxycodone Screen Urine Methadone Screen Ur Barbiturates Screen U Tricyclic Antidepress Ur Phencyclidine Scrn Ur Amphetamines Screen U Methamphetamines Scrn U Benzodiazepines Scrn Urine Cocaine Screen U Marijuana (THC) Screen Ur Drug Screen Comment SARS-CoV-2 (PCR) Negative SARS-CoV-2 Influenza Type A (PCR) Negative PCR FLU A Influenza Type B (PCR) Negative PCR FLU B RSV (PCR) Negative PCR RSV 08/18/25 08/19/25 22:38 05:41 WBC 5.56 RBC 3.66 L Hgb 10.2 L Hct 33.9 MCV 93 MCH 28 MCHC 30 L RDW Coeff of Nicci 16.0 H Plt Count 179 Neut % (Auto) 82.9 H Lymph % (Auto) 12.8 L Powell % (Auto) 3.2 Eos % (Auto) 0.0 Baso % (Auto) 0.4 Neut # (Auto) 4.60 Lymph # (Auto) 0.70 L Powell # (Auto) 0.20 Eos # (Auto) 0.00 Baso # (Auto) 0.02 Abs Immat Gran (auto) 0.04 Imm/Tot Granulo (auto) 0.7 VBG pH 7.440 H VBG pCO2 57 H VBG pO2 < 30.1 VBG HCO3 39 H Sodium 139 Potassium 4.2 Chloride 96 Carbon Dioxide 38 H Anion Gap 5 L BUN 20 Creatinine 1.1 Estimated Creat Clear 40.49 Estimated GFR 55 Glucose 135 H Lactate 0.9 Calcium 8.6 Magnesium Total Bilirubin 0.4 AST 24 ALT 9 Alkaline Phosphatase 61 Troponin I C-Reactive Protein NT-Pro-B Natriuret Pep Total Protein 6.5 Albumin 3.4 TSH Urine Opiates Screen Negative Ur Oxycodone Screen Negative Urine Methadone Screen Negative Ur Barbiturates Screen Negative U Tricyclic Antidepress Negative Ur Phencyclidine Scrn Negative Ur Amphetamines Screen Negative U Methamphetamines Scrn Negative U Benzodiazepines Scrn Negative Urine Cocaine Screen Negative U Marijuana (THC) Screen Negative Ur Drug Screen Comment See Note SARS-CoV-2 (PCR) Influenza Type A (PCR) Influenza Type B (PCR) RSV (PCR)
[2025-08-19] MEDS: FUROSEMIDE 10 MG/ML inj 40 MG IVP ×2 (12:57→21:16)
[2025-08-19] MEDS: POTASSIUM CHLORIDE 10 MEQ CAPSULE ER 20 MEQ PO (13:00)
--- NOTE | 2025-08-19 13:01 | PC.SOCIAL ---
Discharge planning: Called pt's sister, Yusra, and left message requesting call back regarding d/c planning. 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
--- NOTE | 2025-08-19 14:14 | PC.NURSE ---
End of shift: patient alert and oriented. VSS. on 1L NC when up to chair, oxy mask if sleeping d/t undiagnosed ANTHONY. afebrile this shift. Came off unit at 1300. liao catheter patent and draining. Patient tolerating a reg. diet. Up to chair with 1 assist Walker/GB.
--- NOTE | 2025-08-19 16:44 | RESP.RT ---
Patient continues to be up on fluid and diuresing has been started this afternoon. Patient SATs are 97% on 1L NC and taking deep breaths, however patient continues to desaturate during apneic periods and when laying flat. I would recommend keeping her head of bed elevated while resting.
--- NOTE | 2025-08-19 18:42 | PC.NURSE ---
Nurse Note Pt a/o x4 throughout shift, assist of 1 w/walker. Hart cath patent and draining. pt reported no pain reported. Pt needing O2 to maintain sats greater than 88%, see charting.
[2025-08-19] MEDS: LIDOCAINE 5% PATCH 1 PATCH TRANSDERMA (19:08)
[2025-08-19 19:34] LABS: S pneumo Ag Urine S. pneumo Negative (Negative)
[2025-08-19] MEDS: MELATONIN 3 MG TABLET PO (22:31)
[2025-08-19] MEDS: cefTRIAXone 1 GM in 0.9 % SODIUM CHLORIDE Mini-bag 100 ML IVPB (23:36)
[2025-08-20] VITALS (10 sets, daily range): BP systolic 102–117; BP diastolic 53–64; PULSE 51–65; RESP 16–20; TEMP 36.4–37; O2SAT 86–94
[2025-08-20] MEDS: LEVOTHYROXINE 25 MCG TABLET PO (05:57)
[2025-08-20 06:09] LABS: Hematocrit* 31.8 % (33.0-51.0); Hemoglobin* 9.6 gm/dL (12.0-16.0); Mean Corpuscular HGB Conc 30 gm/dL (32-36); Mean Corpuscular Hemoglobin 28 pg (26-34); Mean Corpuscular Volume 92 fL (80-100); Red Blood Count* 3.46 m/uL (4.00-5.20); White Blood Count* 6.78 K/uL (4.50-11.00)
[2025-08-20 06:12] LABS: Slide Review Reflex No
[2025-08-20 06:30] LABS: Chloride* 94 mmol/L (96-114); Potassium* 3.2 mmol/L (3.6-5.1); Sodium* 136 mmol/L (135-149)
[2025-08-20 06:33] LABS: Anion Gap 5 mEq/L (7-15); Blood Urea Nitrogen* 32 mg/dL (7-30); Carbon Dioxide* 37 mmol/L (20-32); Creatinine* 1.1 mg/dL (0.5-1.5); Est. Creatinine Clearance* 40.49; Estimated Glomerular Filt Rate 55 ml/min
[2025-08-20 06:34] LABS: Calcium* 8.7 mg/dL (8.4-10.6); Glucose* 108 mg/dL (60-115)
--- NOTE | 2025-08-20 06:42 | PC.NURSE ---
End of shift report [id number]: VSS. When awake pt was on 1.5 L O2 via NC to maintain O2 sats above 87% per MD orders. When pt is sleeping she is on 2 L O2 via oxy mask due to ANTHONY. At the beginning of the shift pt rated pain 9/10 on her R ankle which she states is chronic, prn tylenol offered and given without relief. Pt was requesting oxycodone but was not an option in her MAR, MD Lafleur was notified and ordered hydroxyzine which patient stated had no improvement, upon reassessment pt is noted to be sleeping comfortably. Pt ambulates 1A, GB, Enma Hart is intact and patent. Bed alarm on, call light within reach. ?
--- NOTE | 2025-08-20 07:57 | PM.IMPN1 ---
Assessment and Plan Assessment and plan (1) Acute on chronic hypoxic respiratory failure: Problem comment: - Presumably HFpEF exacerbation as source; likely 2/2 PNA (viral v/s atypical). - history of COPD and untreated ANTHONY - possible atypical infection on chest x-ray obtained 08/18/25; given comorbidities and COPD, will cover with ceftriaxone and doxycycline - VBG reassuring so no need for BIPAP at this time, will follow - diuresis and follow Is/Os closely - not wheezing, prn nebulizers available and will continue home COPD medications - RT referral - CCU status - 08/19: lower O2 requirements down to 1.5 L/min. Pt will need Abx + diuresis. - 08/20: Pt needed O2 2 L/min overnight, patient with history of ANTHONY and is declining CPAP. Pt will need a higher dose of lasix for diuresis. as Urine output was not up to the target after furosemide IV 40 b.i.d., planning to increase the dose to 60 IV BID, but we will need to monitor her blood pressure as it runs low. - Doubled her home dose of hydrocortisone. - Ordered potassium replacement this morning in addition to starting potassium 50 mEq b.i.d. this AM. - patient will need optimizing of her heart failure GDMT. As a HFpEF pt, I resumed her empagliflozin. I will start her on spironolactone once we complete diuresing her as spironolactone might lower her blood pressure which is already soft. Status: Acute (2) Acute on chronic diastolic (congestive) heart failure: Problem comment: - HFpEF with clinical concern for exacerbation given hypoxia - Hart placed given need to follow Is and Os in addition to decreased LOC, IV Lasix ordered on admission - last TTE 06/21/2025: Final Impressions: 1. Normal LV size, normal wall thickness, normal global systolic function with an estimated EF of 60 - 65%. 2. Right ventricular cavity size is mildly enlarged, global systolic RV function is normal. 3. Grade 2 pattern of LV diastolic filling. Increased left atrial pressure. 4. The aortic valve is bicuspid, mild stenosis and no regurgitation. 5. Mild-moderate tricuspid regurgitation. 6. The inferior vena cava is dilated, respiratory size variation less than 50%. 7. Dilated ascending aorta, diameter of 4.1 cm (upper limit of normal for age, sex, and BSA is 4.0 cm*), Height Index 2.56. 8. Dilated sinus of Valsalva, diameter of 4.0 cm (upper limit of normal for age, sex, and BSA is 3.8 cm*), Height Index 2.50 cm/m. 9. Echo contrast was administered to enhance visualization of all left ventricular segments. - 08/20: - Patient will need optimizing of her heart failure GDMT. As a HFpEF pt, I resumed her empagliflozin. I will start her on spironolactone once we complete diuresing her as spironolactone might lower her blood pressure which is already soft. -Pt will need a higher dose of lasix for diuresis. as Urine output was not up to the target after furosemide IV 40 b.i.d., planning to increase the dose to 60 IV BID, but we will need to monitor her blood pressure as it runs low. Doubled her home dose of hydrocortisone. Status: Acute (3) Acute alteration in mental status: Problem comment: - decreased level of LOC in ER; on the floor, awakened to voice and conversed normally during admission, although sleepy - possibly related to her adrenal insufficiency, versus iatrogenic (on Tramadol and Gabapentin) , versus other metabolic causes like pneumonia. - 08/19: alert, awake Status: Resolved (4) Atypical pneumonia: Problem comment: -Suspected PNA atypical v/s viral. -Cont ceftiaxone + Doxycycline -Ordered Ur Ag strep p. and legionella came -ve Status: Acute (5) Chronic adrenal insufficiency: Problem comment: - on Hydrocortisone 10mg Qam and 5mg Qpm - received 100mg Hydrocortisone in ER, will repeat overnight and resume home dosing in the morning (vs continued IV dosing pending clinical course) - 08/19: Doubled the night dose of hydrocortisone. - 08/20: Doubled the am dose of hydrocortisone. Status: Acute (6) Hypokalemia: Problem comment: - Ordered potassium replacement this morning in addition to starting potassium 50 mEq b.i.d. this AM. Status: Acute (7) Opioid dependence: Problem comment: monitor Status: Acute (8) Obstructive sleep apnea: Problem comment: - outside records indicate she has ANTHONY but is noncompliant with CPAP Status: Acute (9) History of pulmonary embolism: Problem comment: - Eliquis Status: Chronic (10) Chronic a-fib: Problem comment: - Eliquis for stroke prophylaxis and metoprolol + Amiodarone for rate control Status: Acute (11) Diabetes: Problem comment: - on Metformin and Jardiance as an outpatient, most recent A1C 6.5 06/2025 Status: Acute (12) Lymphedema: Problem comment: - fairly new diagnosis, per sister and [id number] - will add edema wear and continue to monitor venous stasis of BLE Status: Acute (13) Venous stasis dermatitis of both lower extremities: Problem comment: - no evidence of acute infection. Toes also exhibit erythema and edema Status: Acute (14) Headache: Problem comment: - noted on arrival to ED, given Toradol and Reglan with relief - negative head CT, no headache complaints upon arrival to floor Status: Acute Total Time Spent Total Time Spent: Today I spent 50 minutes seeing the patient, reviewing [facility] and [facility] notes/diagnostics, discussing the care plan with our care time that includes social work, PT/OT, pharmacy, RT, fdc and documenting my impressions and plan in the medical record. Subjective Date Seen: 08/20/25 Interval history: Pt needed O2 2 L/min overnight, patient with history of ANTHONY that is declining CPAP. Pt will need more diuresis. Doubled her home dose of hydrocortisone. Urine output was not up to target after furosemide IV 40 b.i.d., planning to increase the dose but will need to monitor her blood pressure as it runs low. Ordered potassium replacement this morning in addition to potassium 50 mEq b.i.d. Exam Narrative: Exam Narrative: Physical exam GENERAL: Comfortable, no acute distress. on 1.5 L/min O2 HEAD AND NECK: Atraumatic, normocephalic CARDIOVASCULAR: RRR. Normal S1, S2. No murmurs. RESPIRATORY: Clear to auscultation B/L. Good air entry B/L. +ve crackles NEUROLOGY: Alert, awake. Normal speech. PSYCH: Normal mood, normal affect. Const: Vital Signs, click to edit/add: Vital Signs - 24 hr 08/19/25 08:00 08/19/25 10:00 08/19/25 11:00 Temperature 98.6 F 97.6 F Pulse Rate Pulse Rate [Left P ulse Oximeter] 56 L 61 61 Respiratory Rate 20 20 20 Blood Pressure [Le ft Arm] 104/59 L 117/75 Pulse Oximetry 88 91 Oxygen Delivery Me thod OxyMask Nasal Cannula Oxygen Flow Rate 1 1 08/19/25 11:00 08/19/25 12:00 08/19/25 15:00 Temperature 97.7 F 98.8 F Pulse Rate 62 Pulse Rate [Left P ulse Oximeter] 63 60 Respiratory Rate 18 16 Blood Pressure [Le ft Arm] 126/69 93/54 L Pulse Oximetry 95 88 Oxygen Delivery Me thod Nasal Cannula Nasal Cannula Oxygen Flow Rate 1 1 08/19/25 15:00 08/19/25 15:00 08/19/25 15:05 Temperature Pulse Rate 60 Pulse Rate [Left P ulse Oximeter] Respiratory Rate 16 Blood Pressure [Le ft Arm] Pulse Oximetry 88 Oxygen Delivery Me thod Nasal Cannula Oxygen Flow Rate 1 08/19/25 17:54 08/19/25 17:54 08/19/25 19:00 Temperature 98.1 F Pulse Rate Pulse Rate [Left P ulse Oximeter] 63 Respiratory Rate 16 Blood Pressure [Le ft Arm] 113/61 Pulse Oximetry 86 L 90 90 Oxygen Delivery Me thod Nasal Cannula Nasal Cannula Nasal Cannula Oxygen Flow Rate 1 2 1.5 08/19/25 22:50 08/19/25 22:55 08/19/25 22:55 Temperature 98.2 F Pulse Rate Pulse Rate [Left P ulse Oximeter] 63 91 Respiratory Rate 16 16 18 Blood Pressure [Le ft Arm] 105/58 L Pulse Oximetry 90 88 Oxygen Delivery Me thod Nasal Cannula Nasal Cannula Oxygen Flow Rate 1.5 1.5 08/19/25 23:00 08/20/25 03:22 08/20/25 04:06 Temperature 98.4 F Pulse Rate 58 L Pulse Rate [Left P ulse Oximeter] 53 L Respiratory Rate 20 Blood Pressure [Le ft Arm] 108/57 L Pulse Oximetry 87 L 88 Oxygen Delivery Me thod Nasal Cannula OxyMask Oxygen Flow Rate 1.5 2 08/20/25 07:48 Temperature Pulse Rate 51 L Pulse Rate [Left P ulse Oximeter] Respiratory Rate Blood Pressure [Le ft Arm] Pulse Oximetry Oxygen Delivery Me thod Oxygen Flow Rate Labs Labs: Laboratory Results - last 24 hr 08/19/25 08/20/25 19:00 05:40 WBC 6.78 RBC 3.46 L Hgb 9.6 L Hct 31.8 L MCV 92 MCH 28 MCHC 30 L Plt Count 192 Sodium 136 Potassium 3.2 L Chloride 94 L Carbon Dioxide 37 H Anion Gap 5 L BUN 32 H Creatinine 1.1 Estimated Creat Clear 40.49 Estimated GFR 55 Glucose 108 Calcium 8.7 Urine L. pneumophilia Ag L. pneumo Negative Urine Strep pneumoniae Ag S. pneumo Negative
[2025-08-20] MEDS: AMIODARONE 200 MG TABLET PO (08:27)
[2025-08-20] MEDS: SERTRALINE 50 MG TABLET 25 MG PO (08:27)
[2025-08-20] MEDS: APIXABAN 5 MG TABLET PO ×2 (08:29→21:06)
[2025-08-20] MEDS: DOXYCYCLINE HYCLATE 100 MG PO ×2 (08:30→21:06)
[2025-08-20] MEDS: SODIUM CHLORIDE 0.9 % (FLUSH) 10 ML SYRINGE 5 ML IVF ×3 (08:30→21:08)
[2025-08-20] MEDS: POTASSIUM BICARB 25 MEQ EFFERVESCENT TAB 50 MEQ PO ×3 (08:49→21:03)
[2025-08-20] MEDS: HYDROCORTISONE 10 MG TABLET 20 MG PO (08:51)
[2025-08-20] MEDS: FUROSEMIDE 10 MG/ML inj 60 MG IVP ×2 (10:15→21:07)
--- NOTE | 2025-08-20 11:14 | RESP.RT ---
Patient continues to be up on fluid. When patient is awake and sitting up her SATs are 94% on room air after taking a few deep breaths. Patient has untreated ANTHONY and her SATs dip to 78% on Oxymask or nasal cannula when sleeping. Patient will wake and SATs return to upper 80s-90s. Patient is able to keep SATs in the 90's with deep breathing on room air. Patient lives in an assisted living memory care and will require a sleep study after discharged. Patient currently does not qualify for supplemental O2 while awake, and will need to have NATHONY treated by CPAP and would possibly qualify for a nocturnal O2 bleed in with a titration study. Physician will determine if patient needs CPAP overnight.
[2025-08-20] MEDS: EMPAGLIFLOZIN 10 MG TABLET PO (12:10)
[2025-08-20 12:17] LABS: Potassium* 4.2 mmol/L (3.6-5.1)
--- NOTE | 2025-08-20 12:49 | CRLHL7_ITS ---
For Patients: As a result of the Century Cures Act, medical imaging exams and procedure reports are released immediately into your electronic medical record. You may view this report before your referring provider. If you have questions, please contact your health care provider. Indication: pain, previous ankle surgery Technique: Three views of the right ankle Comparison: None Findings/Impression: No acute fracture or malalignment. No ankle effusion. Well corticated osseous fragments along the inferior margin of the medial malleolus, likely sequela of remote fracture. There are fully threaded fixation screws in the distal tibia and fibula without evidence of hardware related complication. No significant osteoarthritic degenerative changes. No osteomyelitis. No suspicious osseous lesions. Achilles aspect calcaneal enthesophytes. Minimal soft tissue edema throughout the lower leg and ankle. Dictated by Aleks Gee MD @ 08/20/2025 2:23:51 PM (Electronically Signed)
[2025-08-20] MEDS: ACETAMINOPHEN 325 MG TABLET 650 MG PO ×2 (14:27→21:05)
[2025-08-20] MEDS: HYDROCORTISONE 10 MG TABLET PO (18:17)
[2025-08-20] MEDS: LIDOCAINE 5% PATCH 1 PATCH TRANSDERMA (18:28)
--- NOTE | 2025-08-20 18:54 | PC.NURSE ---
Progress Note Pt a/o x3 w/ forgetfulness. Pt assist of 1 w/walker. Pt on 1.5-2L NC throughout shift. O2 turned off at this time per RT. Liao cath changed during shift, liao patent and draining. Pt reported pain 8-10/10 throughout shift, pain managed with scheduled Tylenol and prn hydroxyzine. Pt requested narcotic medication throughout the shift, prescribed pain management education reinforced. Pt had lunch late lunch, no insulin administered. Pt reported nausea MD aware, orders given. Pt states nausea resolved with nonpharmacological interventions
--- NOTE | 2025-08-20 19:23 | RESP.RT ---
Discussed with Dr. Espinal about patient plan for tonight. Patient has untreated ANTHONY and has been unwilling to do a sleep study or wear a CPAP. Patient retains CO2, so we should not use supplemental O2 unless patient is unable to take deep breaths to elevate SAT. Patient thus far has been able to get SAT to 97% on room air by taking deep breaths, we should only use supplemental O2 if patient is unable to get SATs to 88% on room air while taking deep breaths.
[2025-08-20] MEDS: INSULIN ASPART 100 UNIT/ML SUBCUT (20:06)
[2025-08-20] MEDS: DIVALPROEX SODIUM ER TAB 250 MG 2000 MG PO (21:04)
[2025-08-20] MEDS: MELATONIN 3 MG TABLET 6 MG PO (21:05)
[2025-08-20] MEDS: ROSUVASTATIN CALCIUM 10 MG TABLET 20 MG PO (21:06)
[2025-08-20] MEDS: OMEPRAZOLE 20 MG CAPSULE DR 40 MG PO (21:06)
[2025-08-20] MEDS: cefTRIAXone 1 GM in 0.9 % SODIUM CHLORIDE Mini-bag 100 ML IVPB (23:53)
[2025-08-21] VITALS (9 sets, daily range): BP systolic 102–114; BP diastolic 59–69; PULSE 48–67; RESP 16–20; TEMP 36.3–37; O2SAT 89–95
--- NOTE | 2025-08-21 06:41 | PC.NURSE ---
End of shift report [id number]: VSS. Afebrile. On RA overnight per RT Oseas recommendations, able to maintain O2 sats mid 80s with apneic periods lasting around 1 min, pt refuses a CPAP. The lowest pt O2 sats was noted at 31% after awakening pt and encouraging to take deep breaths, pt O2 increased within seconds to mid 80s.?Pt rates pain an 8/10 on her R leg which she states is chronic, prn pain med offered and given, upon reassessment pt was sleeping. Pt ambulates 1A, GBEnma is intact and patent. Bed alarm on, call light within reach. ?
[2025-08-21] MEDS: LEVOTHYROXINE 50 MCG TABLET PO (06:51)
[2025-08-21 07:48] LABS: Hematocrit* 35.6 % (33.0-51.0); Hemoglobin* 10.5 gm/dL (12.0-16.0); Mean Corpuscular HGB Conc 30 gm/dL (32-36); Mean Corpuscular Hemoglobin 28 pg (26-34); Mean Corpuscular Volume 93 fL (80-100); Red Blood Count* 3.81 m/uL (4.00-5.20); White Blood Count* 5.95 K/uL (4.50-11.00)
[2025-08-21 07:50] LABS: Albumin* 3.3 g/dL (3.3-5.0); Chloride* 98 mmol/L (96-114); Potassium* 4.1 mmol/L (3.6-5.1); Sodium* 139 mmol/L (135-149)
--- NOTE | 2025-08-21 07:51 | PM.IMPN1 ---
Assessment and Plan Assessment and plan (1) Acute on chronic hypoxic respiratory failure: Problem comment: - Presumably HFpEF exacerbation as source; likely 2/2 PNA (viral v/s atypical). - possible atypical infection on chest x-ray obtained 08/18/25; given comorbidities and lung disease, will cover with ceftriaxone and doxycycline - PFTs monitored by pulmonology, most recently done 06/2025 showing mild airway restriction - VBG reassuring so no need for BIPAP at this time, will follow - diuresis and follow Is/Os closely - not wheezing, prn nebulizers available and will continue home COPD medications - 08/20: Pt needed O2 2 L/min overnight, patient with history of ANTHONY and is declining CPAP. Pt will need a higher dose of lasix for diuresis. as Urine output was not up to the target after furosemide IV 40 b.i.d., planning to increase the dose to 60 IV BID, but we will need to monitor her blood pressure as it runs low. - Doubled her home dose of hydrocortisone. - Ordered potassium replacement this morning in addition to starting potassium 50 mEq b.i.d. this AM. - patient will need optimizing of her heart failure GDMT. As a HFpEF pt, I resumed her empagliflozin. I will start her on spironolactone once we complete diuresing her as spironolactone might lower her blood pressure which is already soft. - 08/21: After increasing the dose of Lasix IV to 60 mg b.i.d. patient started to have improvement in her oxygen saturation and she actually lost 3 lb of her weight in the past 24 hours. Will cont diuresis for now. I believe patient will need a higher dose of torsemide at home (60 mg QD) and actually I saw in the [facility] outpatient chart that her dose of torsemide was increased to 60 mg daily but I am not sure if the patient started that dose yet as it was only increased in July. 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 Status: Acute (2) Acute on chronic diastolic (congestive) heart failure: Problem comment: - HFpEF with clinical concern for exacerbation given hypoxia - Hart placed given need to follow Is and Os in addition to decreased LOC, IV Lasix ordered on admission - last TTE 06/21/2025: Normal LV size, normal wall thickness, normal global systolic function with an estimated EF of 60 - 65%. global systolic RV function is normal. Grade 2 pattern of LV diastolic filling. Mild-moderate tricuspid regurgitation. Dilated ascending aorta, diameter of 4.1 cm. - 08/20: - Patient will need optimizing of her heart failure GDMT. As a HFpEF pt, I resumed her empagliflozin. I will start her on spironolactone once we complete diuresing her as spironolactone might lower her blood pressure which is already soft. -Pt will need a higher dose of lasix for diuresis. as Urine output was not up to the target after furosemide IV 40 b.i.d., planning to increase the dose to 60 IV BID, but we will need to monitor her blood pressure as it runs low. Doubled her home dose of hydrocortisone. - 08/21: After increasing the dose of Lasix IV to 60 mg b.i.d. patient started to have improvement in her oxygen saturation and she actually lost 3 lb of her weight in the past 24 hours. Will cont diuresis for now. I believe patient will need a higher dose of torsemide (60 mg QD) at home and actually I saw in the [facility] outpatient chart that her dose of torsemide was increased to 60 mg daily but I am not sure if the patient started that dose yet as it was only increased in July. Pt will also need optimizing of the HFp EF GDMT treatment in addition to follow-up with cable worker helper as an outpatient. -Reviewing her chart from [facility] patient is following cardiology at [facility], last visit was about 2 wks ago, and they placed a referral for sleep medicine for assessment of possible sleep apnea & to wear a 7 day zio patch monitor w/ follow up in 3 months. -10/2024 Lexiscan nuclear stress test negative for ischemia or infarction, reduced sensitivity due to body habitus Status: Acute (3) Atypical pneumonia: Problem comment: -Suspected PNA atypical v/s viral. -Cont ceftiaxone + Doxycycline -Ordered Ur Ag strep p. and legionella came -ve Status: Acute (4) Chronic adrenal insufficiency: Problem comment: - on Hydrocortisone 10mg Qam and 5mg Qpm - received 100mg Hydrocortisone in ER, will repeat overnight and resume home dosing in the morning (vs continued IV dosing pending clinical course) - 08/19: Doubled the night dose of hydrocortisone. - 08/20: Doubled the am dose of hydrocortisone. Status: Acute (5) Acute alteration in mental status: Problem comment: - decreased level of LOC in ER; on the floor, awakened to voice and conversed normally during admission, although sleepy - possibly related to her adrenal insufficiency, versus iatrogenic (on Tramadol and Gabapentin) , versus other metabolic causes like pneumonia. - 08/19: alert, awake Status: Resolved (6) Hypokalemia: Problem comment: - Ordered potassium replacement this morning in addition to starting potassium 50 mEq b.i.d. this AM. Status: Acute (7) Opioid dependence: Problem comment: monitor Status: Acute (8) Obstructive sleep apnea: Problem comment: -Reviewing her chart from [facility] patient is following cardiology at [facility], last visit was about 2 wks ago, and they placed a referral for sleep medicine for assessment of possible sleep apnea & to wear a 7 day zio patch monitor w/ follow up in 3 months. Status: Acute (9) History of pulmonary embolism: Problem comment: - Eliquis Status: Chronic (10) Chronic a-fib: Problem comment: - Eliquis for stroke prophylaxis , [id number] -Maintained on amiodarone for rhythm control Status: Acute (11) Diabetes: Problem comment: - on Metformin and Jardiance as an outpatient, most recent A1C 6.5 06/2025 Status: Acute (12) Lymphedema: Problem comment: - fairly new diagnosis, per sister and [id number] - will add edema wear and continue to monitor venous stasis of BLE Status: Acute (13) Venous stasis dermatitis of both lower extremities: Problem comment: - no evidence of acute infection. Toes also exhibit erythema and edema Status: Acute (14) Headache: Problem comment: - noted on arrival to ED, given Toradol and Reglan with relief - negative head CT, no headache complaints upon arrival to floor Status: Acute (15) Right ankle pain: Status: Acute Assessment and Plan: -on examination and right ankle x-ray there was no redness swelling hotness and the x-ray showed an old fracture that might have been the reason of this discomfort. -right ankle xray: No acute fracture or malalignment. No ankle effusion. Well corticated osseous fragments along the inferior margin of the medial malleolus, likely sequela of remote fracture. There are fully threaded fixation screws in the distal tibia and fibula without evidence of hardware related complication. No significant osteoarthritic degenerative changes. No osteomyelitis. No suspicious osseous lesions. Achilles aspect calcaneal enthesophytes. Minimal soft tissue edema throughout the lower leg and ankle. Total Time Spent Total Time Spent: Today I spent 50 minutes seeing the patient, reviewing [facility] and [facility] notes/diagnostics, discussing the care plan with our care time that includes social work, PT/OT, pharmacy, RT, jail and documenting my impressions and plan in the medical record. Subjective Date Seen: 08/21/25 Interval history: No acute events overnight. Patient complained of right ankle pain, on examination and right ankle x-ray there was no redness swelling hotness and the x-ray showed an old fracture that might have been the reason of this discomfort. After increasing the dose of Lasix IV to 60 mg b.i.d. patient started to have improvement in her oxygen saturation and she actually lost 3 lb of her weight in the past 24 hours. Reviewing her chart from [facility] patient is following cardiology at [facility], last visit was about 2 wks ago, and they placed a referral for sleep medicine for assessment of possible sleep apnea & to wear a 7 day zio patch monitor w/ follow up in 3 months. Exam Narrative: Exam Narrative: Physical exam GENERAL: Comfortable, no acute distress. HEAD AND NECK: Atraumatic, normocephalic CARDIOVASCULAR: RRR. Normal S1, S2. No murmurs. RESPIRATORY: Clear to auscultation B/L. Good air entry B/L. NEUROLOGY: Alert, awake. Normal speech. PSYCH: Normal mood, normal affect. Const: Vital Signs, click to edit/add: Vital Signs - 24 hr 08/20/25 11:00 08/20/25 15:00 08/20/25 15:00 Temperature 98.1 F 98.6 F Pulse Rate Pulse Rate [Left P ulse Oximeter] 57 L 57 L Respiratory Rate 18 18 18 Blood Pressure [Le ft Arm] 115/62 115/62 Pulse Oximetry 92 92 Oxygen Delivery Me thod Nasal Cannula Nasal Cannula Oxygen Flow Rate 1 1.5 08/20/25 15:00 08/20/25 16:55 08/20/25 19:00 Temperature 97.6 F Pulse Rate 61 Pulse Rate [Left P ulse Oximeter] 62 Respiratory Rate 18 Blood Pressure [Le ft Arm] 109/53 L Pulse Oximetry 94 87 L Oxygen Delivery Me thod Nasal Cannula Room Air Oxygen Flow Rate 1.5 08/20/25 20:41 08/20/25 23:00 08/20/25 23:00 Temperature 97.9 F Pulse Rate Pulse Rate [Left P ulse Oximeter] 62 65 Respiratory Rate 18 16 16 Blood Pressure [Le ft Arm] 102/54 L Pulse Oximetry 86 L 86 L Oxygen Delivery Me thod Room Air Room Air Oxygen Flow Rate 08/20/25 23:00 08/21/25 03:00 Temperature 97.8 F Pulse Rate 62 Pulse Rate [Left P ulse Oximeter] 48 L Respiratory Rate 16 Blood Pressure [Le ft Arm] 106/63 Pulse Oximetry 95 Oxygen Delivery Me thod Room Air Oxygen Flow Rate Labs Labs: Laboratory Results - last 24 hr 08/20/25 12:00 Potassium 4.2 Imaging Right ankle x-ray: Attestation: I have reviewed the pertinent imaging results. Radiologist's impression: Indication: pain, previous ankle surgery Technique: Three views of the right ankle Comparison: None Findings/Impression: No acute fracture or malalignment. No ankle effusion. Well corticated osseous fragments along the inferior margin of the medial malleolus, likely sequela of remote fracture. There are fully threaded fixation screws in the distal tibia and fibula without evidence of hardware related complication. No significant osteoarthritic degenerative changes. No osteomyelitis. No suspicious osseous lesions. Achilles aspect calcaneal enthesophytes. Minimal soft tissue edema throughout the lower leg and ankle. Dictated by Aleks Gee MD @ 08/20/2025 2:23:51 PM
[2025-08-21 07:53] LABS: Alanine Aminotransferase* 12 U/L (4-35); Alkaline Phosphatase* 69 U/L (40-150); Anion Gap 3 mEq/L (7-15); Aspartate Amino Transferase* 22 U/L (12-35); Bilirubin Total* 0.2 mg/dL (0.1-1.5); Blood Urea Nitrogen* 29 mg/dL (7-30); Calcium* 9.1 mg/dL (8.4-10.6); Carbon Dioxide* 38 mmol/L (20-32); Creatinine* 1.1 mg/dL (0.5-1.5); Est. Creatinine Clearance* 40.49; Estimated Glomerular Filt Rate 55 ml/min; Glucose* 105 mg/dL (60-115); Total Protein* 6.3 g/dL (6.0-8.3)
[2025-08-21 08:00] LABS: Slide Review Reflex No
[2025-08-21] MEDS: EMPAGLIFLOZIN 10 MG TABLET PO (08:36)
[2025-08-21] MEDS: OMEPRAZOLE 20 MG CAPSULE DR 40 MG PO ×2 (08:36→21:16)
[2025-08-21] MEDS: HYDROCORTISONE 10 MG TABLET 20 MG PO (08:36)
[2025-08-21] MEDS: POTASSIUM BICARB 25 MEQ EFFERVESCENT TAB 50 MEQ PO ×2 (08:37→21:15)
[2025-08-21] MEDS: ACETAMINOPHEN 325 MG TABLET 650 MG PO ×3 (08:37→21:16)
[2025-08-21] MEDS: SERTRALINE 50 MG TABLET 25 MG PO (08:37)
[2025-08-21] MEDS: DOXYCYCLINE HYCLATE 100 MG PO ×2 (08:37→21:15)
[2025-08-21] MEDS: MONTELUKAST 10 MG TABLET PO (08:38)
[2025-08-21] MEDS: FUROSEMIDE 10 MG/ML inj 60 MG IVP ×2 (08:38→21:18)
[2025-08-21] MEDS: APIXABAN 5 MG TABLET PO ×2 (08:38→21:16)
[2025-08-21] MEDS: SODIUM CHLORIDE 0.9 % (FLUSH) 10 ML SYRINGE 5 ML IVF ×2 (08:39→21:18)
[2025-08-21] MEDS: AMIODARONE 200 MG TABLET PO (08:39)
[2025-08-21] MEDS: INSULIN ASPART 100 UNIT/ML SUBCUT (16:09)
[2025-08-21] MEDS: HYDROCORTISONE 10 MG TABLET PO (18:43)
[2025-08-21] MEDS: LIDOCAINE 5% PATCH 1 PATCH TRANSDERMA (18:57)
--- NOTE | 2025-08-21 19:17 | PC.NURSE ---
End of shift [id number] - Pt alert, oriented, cooperative. Up with standby assistance and 4ww/gait belt, observed to ambulate in room with WALTER and PT. Tolerating RA and able to maintain saturation per RT. Denies SOB, dizziness, lightheadedness. Continent of bowel during shift, liao catheter noted to be patent and draining. Pt denied pain, given scheduled medication per MAR to maintain pt comfort. Pt appears to be resting comfortably in chair at end of shift with call light within reach.
[2025-08-21] MEDS: MELATONIN 3 MG TABLET 6 MG PO (21:15)
[2025-08-21] MEDS: ROSUVASTATIN CALCIUM 10 MG TABLET 20 MG PO (21:17)
[2025-08-21] MEDS: DIVALPROEX SODIUM ER TAB 250 MG 2000 MG PO (21:17)
[2025-08-21] MEDS: cefTRIAXone 1 GM in 0.9 % SODIUM CHLORIDE Mini-bag 100 ML IVPB (23:38)
[2025-08-22] VITALS (7 sets, daily range): BP systolic 94–125; BP diastolic 60–80; PULSE 45–64; RESP 16–20; TEMP 36.3–36.4; O2SAT 90–93
--- NOTE | 2025-08-22 05:36 | PC.NURSE ---
End of shift report [id number]: VSS. Afebrile. On RA overnight per RT recommendations. Oxygen saturations were noted to dip into mid to low 80s with apneic spells when sleeping.?Pt continues to rate pain an 8-0/10 on her R leg which she states is chronic, scheduled Tylenol given and upon reassessment pt appeared to be watching TV comfortably.?Pt ambulates 1A, GB, WKatie Hart is intact and patent. Bed alarm on, call light within reach. ?
[2025-08-22] MEDS: LEVOTHYROXINE 50 MCG TABLET PO (06:11)
[2025-08-22 06:33] LABS: Hematocrit* 38.4 % (33.0-51.0); Hemoglobin* 11.4 gm/dL (12.0-16.0); Mean Corpuscular HGB Conc 30 gm/dL (32-36); Mean Corpuscular Hemoglobin 28 pg (26-34); Mean Corpuscular Volume 93 fL (80-100); Red Blood Count* 4.11 m/uL (4.00-5.20); White Blood Count* 5.15 K/uL (4.50-11.00)
[2025-08-22 06:38] LABS: Slide Review Reflex No
[2025-08-22 06:45] LABS: Chloride* 98 mmol/L (96-114); Potassium* 4.5 mmol/L (3.6-5.1); Sodium* 140 mmol/L (135-149)
[2025-08-22 06:48] LABS: Anion Gap 5 mEq/L (7-15); Blood Urea Nitrogen* 20 mg/dL (7-30); Calcium* 9.3 mg/dL (8.4-10.6); Carbon Dioxide* 37 mmol/L (20-32); Creatinine* 1.1 mg/dL (0.5-1.5); Est. Creatinine Clearance* 40.49; Estimated Glomerular Filt Rate 55 ml/min; Glucose* 114 mg/dL (60-115)
[2025-08-22] MEDS: OMEPRAZOLE 20 MG CAPSULE DR 40 MG PO (07:39)
[2025-08-22] MEDS: SERTRALINE 50 MG TABLET 25 MG PO (08:25)
[2025-08-22] MEDS: POTASSIUM CHLORIDE 10 MEQ CAPSULE ER PO (08:26)
[2025-08-22] MEDS: TORSEMIDE 20 MG TABLET 60 MG PO (08:26)
[2025-08-22] MEDS: ACETAMINOPHEN 325 MG TABLET 650 MG PO (08:27)
[2025-08-22] MEDS: HYDROCORTISONE 10 MG TABLET PO (08:27)
[2025-08-22] MEDS: APIXABAN 5 MG TABLET PO (08:27)
[2025-08-22] MEDS: MONTELUKAST 10 MG TABLET PO (08:28)
[2025-08-22] MEDS: EMPAGLIFLOZIN 10 MG TABLET PO (08:28)
[2025-08-22] MEDS: DOXYCYCLINE HYCLATE 100 MG PO (08:29)
[2025-08-22] MEDS: SODIUM CHLORIDE 0.9 % (FLUSH) 10 ML SYRINGE 5 ML IVF (08:31)
--- NOTE | 2025-08-22 09:06 | NUTR.NU ---
RDN with diet education related to heart failure. Patient admitted for respiratory failure and hear failure exacerbation. Patient lives in memory care assisted living. Current weight 202lb 6oz; height 5ft 3in; BMI 35.8 kg/m2. Weight has been stable recently. Current diet is Regular. Meal intakes since admit have been adequate at 100%. Patient to discharge back to [facility] assisted living today. No appropriate for diet education with patient's current housing accommodations. RDN will continue to monitor and follow-up prn.
[2025-08-22] MEDS: AMIODARONE 200 MG TABLET 100 MG PO (09:15)
--- NOTE | 2025-08-22 12:00 | PC.SOCIAL ---
Addendum entered and electronically signed by Amy Elizabeth LCSW 08/22/25 15:55: SEAN faxed discharge summary to [facility]. Addendum entered and electronically signed by Amy Elizabeth LCSW 08/22/25 13:26: SEAN reviewed Important Medicare Rights form with patient and patient's sister and provided them with their copy. Patient had no concerns around discharging. SEAN faxed orders to Alyssa and called her informing that she should be receiving these. Alyssa asked for nurse to nurse. SEAN provided RN with Alyssa's number [phone]. SEAN called Adarsh Jung at [phone] and left vm informing of discharge. SEAN requested call back for where to send discharge summary to. Original Note: Discharge planning: SEAN called RN, Alyssa, at [facility] to discuss discharge. SEAN spoke with Alyssa who states that ideally patient would return prior to 1430 as RN, has to leave then, however, if patient can't return prior to then she would try to see them later in the evening. SEAN explained that the provider is monitoring new meds and SW will discuss with them when ready for discharge. SEAN spoke with provider who states she is aiming for a 1300 discharge. SEAN called Alyssa and spoke with her who states this will work and would like orders leonel. SEAN called patient's sister Yusra to discuss discharge and transportation. Yusra states she is comfortable with discharge and that she plans to provide transportation. Sister inquired if patient's wheelchair is here, SEAN states she will find out, as sister states they will need that for transport. Sister reports if it isn't she will go to [facility] to pick it up. SEAN called sister and informed that wheelchair is not here. Sister had questions about the ziopatch and SEAN informed she will pass this on to the RN. Sister had no further questions at this time.
--- NOTE | 2025-08-22 12:42 | PM.DS1 ---
DS: Providers Provider Date Seen: 08/22/25 Date of admission: 08/18/25 21:46 Primary care physician: Not a Local Provider Admitting Clinician: Mariana Nichols MD Consults: 08/18/25 23:05 Consult to Physical Therapy [CONS] Routine Comment: Reason(s) for PT Consult:: Evaluate and Treat Any Restrictions?:: No Restrictions Consult to Advanced Practice Registered Nurse [CONS] Routine Comment: Reason for Consult:: Discharge Planning Needs 08/18/25 23:06 Consult to Occupational Therapy [CONS] Routine Comment: Reason(s) for OT Consult:: Evaluate and Treat Any Restrictions?:: No Restrictions 08/18/25 23:35 Consult to Respiratory Therapy [CONS] Routine Comment: Reason(s) for RT Consult:: Consult Attending Physician on discharge: Mariana Nichols MD DS: Diagnosis Discharge Diagnosis (1) Acute on chronic hypoxic respiratory failure: Status: Acute Problem details: - Presumably HFpEF exacerbation as source; likely 2/2 PNA (viral v/s atypical). - possible atypical infection on chest x-ray obtained 08/18/25; given comorbidities and lung disease, will cover with ceftriaxone and doxycycline - PFTs monitored by pulmonology, most recently done 06/2025 showing mild airway restriction - VBG reassuring so no need for BIPAP at this time, will follow - diuresis and follow Is/Os closely - not wheezing, prn nebulizers available and will continue home COPD medications - 08/20: Pt needed O2 2 L/min overnight, patient with history of ANTHONY and is declining CPAP. Pt will need a higher dose of lasix for diuresis. as Urine output was not up to the target after furosemide IV 40 b.i.d., planning to increase the dose to 60 IV BID, but we will need to monitor her blood pressure as it runs low. - Doubled her home dose of hydrocortisone. - Ordered potassium replacement this morning in addition to starting potassium 50 mEq b.i.d. this AM. - patient will need optimizing of her heart failure GDMT. As a HFpEF pt, I resumed her empagliflozin. I will start her on spironolactone once we complete diuresing her as spironolactone might lower her blood pressure which is already soft. - 08/21: After increasing the dose of Lasix IV to 60 mg b.i.d. patient started to have improvement in her oxygen saturation and she actually lost 3 lb of her weight in the past 24 hours. Will cont diuresis for now. I believe patient will need a higher dose of torsemide at home (60 mg QD) and actually I saw in the [facility] outpatient chart that her dose of torsemide was increased to 60 mg daily but I am not sure if the patient started that dose yet as it was only increased in July. Pt will also need optimizing of the HFp EF GDMT treatment, in addition to follow-up with her architecture department chair @ [facility] as an outpatient. -08/22: DC pt w/ Cardiology follow up , recommending a sleep study. - Torsemide 60 mg QD. - During her stay heart rate was low in the 40s and 50s, reviewing architecture department chair notes, it seems they were considering reducing Amiodarone dose, so I reduced it from 200 mg to 100 mg daily. (2) Acute on chronic diastolic (congestive) heart failure: Status: Acute Problem details: - HFpEF with clinical concern for exacerbation given hypoxia - Hart placed given need to follow Is and Os in addition to decreased LOC, IV Lasix ordered on admission - last TTE 06/21/2025: Normal LV size, normal wall thickness, normal global systolic function with an estimated EF of 60 - 65%. global systolic RV function is normal. Grade 2 pattern of LV diastolic filling. Mild-moderate tricuspid regurgitation. Dilated ascending aorta, diameter of 4.1 cm. - 08/20: - Patient will need optimizing of her heart failure GDMT. As a HFpEF pt, I resumed her empagliflozin. I will start her on spironolactone once we complete diuresing her as spironolactone might lower her blood pressure which is already soft. -Pt will need a higher dose of lasix for diuresis. as Urine output was not up to the target after furosemide IV 40 b.i.d., planning to increase the dose to 60 IV BID, but we will need to monitor her blood pressure as it runs low. Doubled her home dose of hydrocortisone. - 08/21: After increasing the dose of Lasix IV to 60 mg b.i.d. patient started to have improvement in her oxygen saturation and she actually lost 3 lb of her weight in the past 24 hours. Will cont diuresis for now. I believe patient will need a higher dose of torsemide (60 mg QD) at home and actually I saw in the [facility] outpatient chart that her dose of torsemide was increased to 60 mg daily but I am not sure if the patient started that dose yet as it was only increased in July. Pt will also need optimizing of the HFp EF GDMT treatment in addition to follow-up with architecture department chair as an outpatient. -Reviewing her chart from [facility] patient is following cardiology at [facility], last visit was about 2 wks ago, and they placed a referral for sleep medicine for assessment of possible sleep apnea & to wear a 7 day zio patch monitor w/ follow up in 3 months. -10/2024 Lexiscan nuclear stress test negative for ischemia or infarction, reduced sensitivity due to body habitus -08/22: DC pt w/ Cardiology follow up , recommending a sleep study. - Torsemide 60 mg QD. - During her stay heart rate was low in the 40s and 50s, reviewing architecture department chair notes, it seems they were considering reducing Amiodarone dose, so I reduced it from 200 mg to 100 mg daily. (3) Atypical pneumonia: Status: Acute Problem details: -Suspected PNA atypical v/s viral. -Cont ceftiaxone + Doxycycline -Ordered Ur Ag strep p. and legionella came -ve (4) Chronic adrenal insufficiency: Status: Acute Problem details: - on Hydrocortisone 10mg Qam and 5mg Qpm - received 100mg Hydrocortisone in ER, will repeat overnight and resume home dosing in the morning (vs continued IV dosing pending clinical course) - 08/19: Doubled the night dose of hydrocortisone. - 08/20: Doubled the am dose of hydrocortisone. (5) Acute alteration in mental status: Status: Resolved Problem details: - decreased level of LOC in ER; on the floor, awakened to voice and conversed normally during admission, although sleepy - possibly related to her adrenal insufficiency, versus iatrogenic (on Tramadol and Gabapentin) , versus other metabolic causes like pneumonia. - 08/19: alert, awake (6) Hypokalemia: Status: Acute Problem details: - Ordered potassium replacement this morning in addition to starting potassium 50 mEq b.i.d. this AM. (7) Opioid dependence: Status: Acute Problem details: monitor (8) Obstructive sleep apnea: Status: Acute Problem details: -Reviewing her chart from [facility] patient is following cardiology at [facility], last visit was about 2 wks ago, and they placed a referral for sleep medicine for assessment of possible sleep apnea & to wear a 7 day zio patch monitor w/ follow up in 3 months. (9) History of pulmonary embolism: Status: Chronic Problem details: - Eliquis (10) Chronic a-fib: Status: Acute Problem details: - Eliquis for stroke prophylaxis , [id number] -Maintained on amiodarone for rhythm control - During her stay heart rate was low in the 40s and 50s, reviewing architecture department chair notes, it seems they were considering reducing Amiodarone dose, so I reduced it from 200 mg to 100 mg daily. (11) Diabetes: Status: Acute Problem details: - on Metformin and Jardiance as an outpatient, most recent A1C 6.5 06/2025 (12) Lymphedema: Status: Acute Problem details: - fairly new diagnosis, per sister and [id number] - will add edema wear and continue to monitor venous stasis of BLE (13) Venous stasis dermatitis of both lower extremities: Status: Acute Problem details: - no evidence of acute infection. Toes also exhibit erythema and edema (14) Headache: Status: Acute Problem details: - noted on arrival to ED, given Toradol and Reglan with relief - negative head CT, no headache complaints upon arrival to floor (15) Right ankle pain: Status: Acute DS: Summary Hospital Course Hospital Course: Pt w PMHx of HFpEF, Afib, adrenal insufficiency who presents w/ decreased level of LOC. Pt was found to have exacerbation of CHF. Agressive diuresis started + Abx to cover viral vs atypical PNA. Pt improved immensely and the following changes and F/ups are needed; DC pt w/ Cardiology follow up , recommending a sleep study. Torsemide 60 mg QD. During her stay heart rate was low in the 40s and 50s, reviewing architecture department chair notes, it seems they were considering reducing Amiodarone dose, so I reduced it from 200 mg to 100 mg daily. Status at Discharge Functional status at discharge: uses cane/walker Overall status at discharge: patient is progressing back to baseline Time Spent with Patient Time attestation: Total time spent providing and/or coordinating discharge services: Exam Narrative: Exam Narrative: Physical exam GENERAL: Comfortable, no acute distress. HEAD AND NECK: Atraumatic, normocephalic CARDIOVASCULAR: RRR. Normal S1, S2. No murmurs. RESPIRATORY: Clear to auscultation B/L. Good air entry B/L. No wheezes or rhonchi. NEUROLOGY: Alert, awake. Normal speech. PSYCH: Normal mood, normal affect. Const: Vital Signs, click to edit/add: Vital Signs - 24 hr 08/21/25 15:00 08/21/25 15:00 08/21/25 17:04 Temperature Pulse Rate 67 Pulse Rate [Left P ulse Oximeter] 58 L Respiratory Rate 20 20 Blood Pressure [Le ft Arm] 105/59 L Pulse Oximetry 93 93 Oxygen Delivery Ca thod Room Air Room Air 08/21/25 19:00 08/21/25 20:26 08/21/25 23:00 Temperature 98.6 F 97.3 F L Pulse Rate Pulse Rate [Left P ulse Oximeter] 63 59 L Respiratory Rate 20 20 20 Blood Pressure [Le ft Arm] 112/66 102/69 Pulse Oximetry 89 90 Oxygen Delivery Ca thod Room Air Room Air 08/21/25 23:00 08/21/25 23:00 08/22/25 02:37 Temperature 97.4 F L Pulse Rate 59 L Pulse Rate [Left P ulse Oximeter] 52 L Respiratory Rate 20 18 Blood Pressure [Le ft Arm] 94/60 Pulse Oximetry 90 90 Oxygen Delivery Ca thod Room Air Room Air 08/22/25 07:24 08/22/25 07:51 08/22/25 07:56 Temperature 97.6 F Pulse Rate 45 L Pulse Rate [Left P ulse Oximeter] 48 L 48 L Respiratory Rate 16 Blood Pressure [Le ft Arm] 125/80 Pulse Oximetry 93 Oxygen Delivery Ca thod Room Air 08/22/25 08:00 08/22/25 10:45 08/22/25 12:19 Temperature 97.6 F 97.5 F L Pulse Rate Pulse Rate [Left P ulse Oximeter] 64 58 L Respiratory Rate 18 18 20 Blood Pressure [Le ft Arm] 107/65 114/65 Pulse Oximetry 90 91 90 Oxygen Delivery Ca thod Room Air Room Air Room Air DS: Data Data Completed and Pending Completed studies during hospitalization: Procedures Assistance with Respiratory Ventilation, Less than 24 Consecutive Hours, Continuous Positive Airway Pressure (06/21/25) Introduction of Other Gas into Respiratory Tract, Via Natural or Artificial Opening (06/21/25) Labs on day of discharge: Labs from last 24 hours 08/22/25 06:24 WBC 5.15 RBC 4.11 Hgb 11.4 L Hct 38.4 MCV 93 MCH 28 MCHC 30 L Plt Count 210 Sodium 140 Potassium 4.5 Chloride 98 Carbon Dioxide 37 H Anion Gap 5 L BUN 20 Creatinine 1.1 Estimated Creat Clear 40.49 Estimated GFR 55 Glucose 114 Calcium 9.3 Preliminary micro results at discharge 08/18/25 20:00 Blood Culture - Preliminary Blood NO GROWTH AFTER 72 HOURS 08/18/25 16:40 Blood Culture - Preliminary Blood NO GROWTH AFTER 72 HOURS Discharge Plan Discharge Disposition: Xfer [facility] Date of Admission: 08/18/25 21:46 Attending Provider on Discharge: Loretta Ambrocio Primary Care Provider: Provider,Not a Local Condition: Improved Anticipated Discharge Date/Time: 08/22/25 13:00 Discharge Medications: New amiodarone 100 mg tablet 100 mg PO DAILY Qty: 30 2RF Continued Trelegy Ellipta 100-62.5-25 mcg blister with device 1 inh inhalation DAILY ergocalciferol (vitamin D2) 1,250 mcg (50,000 unit) capsule 1,250 mcg PO SA acetaminophen 325 mg tablet 650 mg PO TID Rx Instructions: and 325 mg every 8 hours prn ammonium lactate 12 % cream 1 applic topical BID calcium carbonate-vitamin D3 600 mg-10 mcg (400 unit) tablet 1 tab PO BID divalproex 500 mg tablet extended release 24 hr 2,000 mg PO HS hydrocortisone 10 mg tablet 5 mg PO HS hydrocortisone [Cortef] 10 mg tablet 10 mg PO DAILY lidocaine 4 % adhesive patch,medicated 1 patch topical DAILY@19 melatonin 5 mg tablet 5 mg PO HS montelukast 10 mg tablet 10 mg PO DAILY multivitamin with folic acid [Tab-A-Tiffanie] 400 mcg tablet 1 tab PO DAILY polyethylene glycol 3350 [Gavilax] 17 gram powder in packet 17 g PO DAILY PRN rosuvastatin 20 mg tablet 20 mg PO HS sertraline 25 mg tablet 25 mg PO DAILY ascorbic acid (vitamin C) 1,000 mg tablet 1,000 mg PO BID cyanocobalamin (vitamin B-12) 500 mcg tablet 500 mcg PO DAILY cholecalciferol (vitamin D3) 125 mcg (5,000 unit) capsule 125 mcg PO QAM Eliquis 5 mg tablet 5 mg PO BID naloxone [Narcan] 4 mg/actuation spray,non-aerosol 4 mg intranasal Q2M PRN Jardiance 10 mg tablet 10 mg PO QAM Qty: 30 2RF metformin 500 mg tablet extended release 24 hr 500 mg PO DAILY Qty: 30 3RF omeprazole 40 mg capsule,delayed release(DR/EC) 40 mg PO BID levothyroxine 50 mcg tablet 50 mcg PO DAILY vitamin B complex Capsule 1 cap PO DAILY potassium chloride 10 mEq capsule, extended release 10 meq PO DAILY 60 Days Qty: 60 2RF Changed torsemide 20 mg tablet 60 mg PO DAILY 30 Days Qty: 90 0RF Discontinued amiodarone 200 mg tablet 200 mg PO DAILY Discharge Orders: Discharge Order (Routine); Ordered 08/22/25 Ordered By: Loretta Ambrocio Additional Instructions: You need to follow-up with your primary care physician and do a kidney function test including potassium levels within 3-5 days. You need to keep your appointment with Cardiology and follow up their recommendations as they recommended a sleep study, if sleep study shows ANTHONY you need to wear a CPAP at night. Torsemide does was noticed to be 60, that is 3 tablets of the torsemide 20 mg. I recommend that you continue on that does as it is noticed that the previous does did not prevent fluid accumulation. Your heart rate was low during her stay in the 40s and 50s, reviewing your architecture department chair notes it seems they were considering reducing the does so I reduced it from 200 mg to 100 mg daily. Activity Level: Activity as Tolerated Discharge Diet: Diabetic and Heart Healthy (2 gm sodium, low fat) Follow Up Appointments: Provider,Not a Local [Primary Care Provider, Family Practice] Referral Note: Follow-up in 3-5 days, patient will need kidney function test and electrolytes mainly potassium levels in 3-5 days. Forms: [facility] Bel[facility], [facility] Instructions Admit to: Assisted Living Discharge Potential: Fair Length of Stay: 30-90 days Can use facility standing orders?: Yes Code Status: DNR/DNI TEDs: Bilateral Knee Rehab Potential: Fair Therapy: Physical Therapy and Occupational Therapy Therapy Orders: Evaluate and Treat Oxygen: No Urinary Catheter: No
--- NOTE | 2025-08-22 14:13 | PC.NURSE ---
Discharge: Patient pleasant and cooperative. Up with one assist, walker and gait belt. Vitals stable, HR in 50's, MD updated and amiodarone decreased. Pain managed with PRN and scheduled medication, see JAN. [place] placed this morning. Hart removed @ 1130, able to void 600cc an hour later. IV x2 removed. Discussed medication changes and follow ups needed with patient and family. Nurse to nurse given to Evonne LYN.
--- NOTE | 2025-08-23 13:10 | PC.SOCIAL ---
Discharge planning: SEAN received call from [facility] caseworker inquiring about resumption of care orders. SEAN explained they were faxed yesterday and SEAN asked for a new fax to send to since they haven't received it. import customer service manager provided the same fax number and SEAN states she will send it again. import customer service manager asked about if it is just PT/OT or also nursing. SEAN explained that from the d/c summary it appears to be PT/OT. SEAN faxed discharge summary to [phone].
== END 2025-08-22 13:15 | disposition home health service (06) | DRG 291 ==
LOC: ED 20:43 → MEDSURG 21:47
PROVIDERS: Student in an Organized Health Care Education/Training Program; Admitting Provider Family Medicine; Emergency Provider Emergency Medicine; Visit Provider Family Medicine
DX: I11.0 Hypertensive heart disease with heart failure (principal); G93.41 Metabolic encephalopathy; I50.33 Acute on chronic diastolic (congestive) heart failure; J18.9 Pneumonia, unspecified organism; J96.21 Acute and chronic respiratory failure with hypoxia; J96.22 Acute and chronic respiratory failure with hypercapnia; I48.20 Chronic atrial fibrillation, unspecified; E27.40 Unspecified adrenocortical insufficiency; F11.20 Opioid dependence, uncomplicated; G40.209 Localization-related (focal) (partial) symptomatic epilepsy and epileptic syndromes with complex partial seizures, not intractable, without status epilepticus; J44.9 Chronic obstructive pulmonary disease, unspecified; G47.33 Obstructive sleep apnea (adult) (pediatric); E87.6 Hypokalemia; R51.9 Headache, unspecified; I89.0 Lymphedema, not elsewhere classified; Z91.199 Patient's noncompliance with other medical treatment and regimen due to unspecified reason; E11.9 Type 2 diabetes mellitus without complications; M25.571 Pain in right ankle and joints of right foot; Z86.711 Personal history of pulmonary embolism; Z79.01 Long term (current) use of anticoagulants; I87.2 Venous insufficiency (chronic) (peripheral); Z79.84 Long term (current) use of oral hypoglycemic drugs; M06.9 Rheumatoid arthritis, unspecified; E66.812 Obesity, class 2; E66.01 Morbid (severe) obesity due to excess calories; Z68.35 Body mass index [BMI] 35.0-35.9, adult; I48.0 Paroxysmal atrial fibrillation; Z79.51 Long term (current) use of inhaled steroids; I71.9 Aortic aneurysm of unspecified site, without rupture; Z86.73 Personal history of transient ischemic attack (TIA), and cerebral infarction without residual deficits
CPT/HCPCS: 36415; 51701; 70450; 71046; 73610; 80048; 80053; 80306; 82803; 82962; 83605; 83735; 83880; 84132; 84443; 84484; 85025; 85027; 86140; 87040; 87081; 87449; 87631; 87899; 93005; 94761; 97110; 97116; 97161; 97165; 97530; 97535; 99285; A9270; J0696; J1720; J1885; J1938; J2765; J7050

== ENCOUNTER 2025-11-06 09:22 | Outpatient (CLI) | payer OTHER, SELFPAY | END 2025-11-06 09:23 | disposition home or self-care (01) | LOC: AMB 11-09 14:48 | PROVIDERS: Visit Provider Internal Medicine | DX: R53.1 Weakness (principal) | CPT/HCPCS: A0425; A0427 ==

== ENCOUNTER 2025-11-06 10:10 | Inpatient (IN) | payer OTHER, SELFPAY ==
--- OUTSIDE RECORDS SUMMARY | 2025-10-26 09:25 | XMS_ITS | Encounter Summary ---
Author Organization [place] Address [address] [place] [address]. [place] [address] Care Team Providers Care Pit Steward Name Role Phone Raphael Solo MD Unavailable [phone] Isac Mayorga MD Unavailable [phone] Henry Motta MD Unavailable [phone] Tania Arevalo MD Unavailable [phone] Paolo Ferris MD Unavailable Rachid Han MD Unavailable [phone] Toro MD Unavailable [phone] Aleks Phillips MD Unavailable + [phone] Aliyah Rust APRN SHOW OPERATIONS SUPERVISOR Unavailable [phone] Issac Graham MD Unavailable Unavailable Ana Maria Hwang MD Unavailable [phone] Marcial Astudillo MD Unavailable [phone] Ekaterina Reardon MD Unavailable +[phone] Raphael Teresa MD Unavailable [phone] Smooth Hussein MD Unavailable Unavailable La Lopez MD Unavailable Issac Graham MD Unavailable Unavailable Natalie Vasques MD Unavailable + Daniel Contreras MD, Willie Unavailable + [phone] Hussein Roth RN Unavailable Unavailable Liegl, Lisa Angela PA-C Unavailable Un available Liegl, Lisa Angela PA-C Unavailable Un available Yamila Alas OD Unavailable [phone] Robyn Walter MACHINE CASTINGS PLASTERER Unavailable [phone] Vonnie Sweeney MD Unavailable [phone] Yamila Alas OD Unavailable + [phone] Leonidas Raoz Unavailable Unavailable Shaggy Cintron MD Unavailable Delonte Moody MD Unavailable [phone] Lucas Veliz MD Unavailable +[phone] Dayron Sanchez Unavailable +[phone] Ty Grewal MD Unavailable [phone] Otilia Rendon [facility] Unavailable Unavailable Otilia Rendon [facility] Unavailable Unavailable Kiana Dennis Primary Care Provider [phone] Henry Motta MD Unavailable [phone] Lucas Veliz MD Unavailable +[phone] Nany Solitario NP Unavailable [phone] Reason for Visit * Diagnostic Imaging NM (Routine) - AuthorizedSpecialtyDiagnoses / Procedures Referred By ContactReferred To ContactCardiology Diagnoses Chest pain Congestive heart failure, unspecified HF chronicity, unspecified heart failure type (H) Procedures NM Lexiscan stress test (nuc card) Nany Solitario NP [address] [address] Phone: tel: fax: [facility] [address] [facility] [address] [place] [phone] Phone: tel: Referral Mac[place] DateExpiration DateVisits RequestedVisits [id number]/19/202511/19/202655 Encounter Details DateTypeDepartmentCare Team (Latest Contact Info)Zygisuuzjem79/10/2025 9:25 AM DIETETIC AIDE - 10/26/2025 11:59 PM CSTHospital Encounter M [facility] [address] [facility] [address] [place] [phone] Nany Solitario NP [address] [facility] [place] [address] Discharge Disposition: Home or Self Care Social History Tobacco UseTypesPacks/DayYears UsedDateSmoking Tobacco: FormerCigarettes0.151 Started: 11/17/1974Smokeless Tobacco: Never Comments:1-2 cigarettes a da y Alcohol UseStandard Drinks/WeekCommentsNot Currently0 (1 standard drink = 0.6 oz pure alcohol)Holidays, 1 glass on new years.Social Connection and Isolation PanelAnswerDate RecordedFrequency of Communication with Friends and FamilyTwice a week12/13/2019Frequency of Social Gatherings with Friends and FamilyPatient xecqnerx43/27/2020Attends Gnosticist ServicesPatient mmovvane42/27/2020Active Member of Clubs or ZfbpomzvpppdvYd50/27/2020Attends Club or Organization MeetingsPatient zjdyautp91/27/2020Marital StatusLiving with ahestir5412/13/2019 AUDIT-CAnswerDate RecordedQ1: How often do you have a drink containing alcohol? Never12/13/2019Q2: How many drinks containing alcohol do you have on a typical day when you are drinking?Patient xqcrckko32/27/2020Q3: How often do you have six or more drinks on one occasion?Patient jfsxxjyw50/27/2020PHQ-2AnswerDate RecordedPHQ-2 Xsiko831Finun[facility] [place] of Occupational Health - Occupational Stress QuestionnaireAnswerDate RecordedFeeling of StressOnly a egazmk6612/13/2019Exercise Vital SignAnswerDate RecordedDays of Exercise per Week0 days12/13/2019Minutes of Exercise per Session0 min12/13/2019Adolescent Education AnswerDate RecordedGetting School Help NeededNot on file08/09/2023Food InsecurityAnswerDate RecordedWithin the past 12 months, did you worry that your food would run out before you got money to buy more?No01/14/2025Within the past 12 months, did the food you bought just not last and you didn???t have money to getmore?No01/14/2025Housing StabilityAnswerDate RecordedDo you have housing? (Housing is defined as stable permanent housing and does not include staying ou tside in a car, in a tent, in an abandoned building, in an overnight mcc, or couch-surfing.)Yes01/14/2025re you worried about losing your housing?No 01/14/2025Financial Resource StrainAnswerDate RecordedWithin the past 12 months, have you or your family members you live with been unable to get utilities (heat, electricity) when it was really needed?No01/14/2025Transportation Needs AnswerDate RecordedWithin the past 12 months, has lack of transportation kept you from medical appointments, getting your medicines, non-medical meetings or appointments, work, or from getting things that you need?No01/14/2025 Interpersonal SafetyAnswerDate RecordedDo you feel physically and emotionally safe where you currently live?Yes01/12/2025Within the past 12 months, have you been hit, slapped, kicked or otherwise physically hurt by someone?No01/12/2025 Within the past 12 months, have you been humiliated or emotionally abused in other ways by your partner or ex-partner?No01/12/2025EducationAnswerDate RecordedWhat is the highest level of school you have completed or the highest degree you have received?Associate degree: occupational, technical, or vocational qwnbddf2412/13/2019CommentsNoSex and Gender InformationValue Date RecordedSex Assigned at BirthNot on fileLegal GhhUuwydp39/04/2012 3:32 AM CSTGender IdentityNot on fileSexual OrientationNot on filedocumented as of this encounter Last Filed Vital Signs Vital SignReadingTime TakenCommentsBlood Iicjedpe054/7410/26/2025 11:49 AM DIETETIC AIDE Ztbjc456810/26/2025 11:49 AM CSTTemperature--Respiratory Rate--Oxygen Saturation 98%10/26/2025 10:13 AM CSTInhaled Oxygen Concentration--Weight--Height--Body Mass Index--documented in this encounter Medications at Time of Discharge MedicationSigDispense QuantityRefillsLast FilledStart DateEnd Date acetaminophen (TYLENOL) 325 MG tablet Indications:S/P spinal fusion,Back pain, unspecified back location, unspecified back pain laterality, unspecified chronicityTAKE 1 TABLET BY MOUTH EVERY 8 HOURS NEEDED --MAXIMUM OF 4000MG ACETAMINOPHEN IN 24 HOURS- 90 tablet albuterol (PROAIR HFA/PROVENTIL HFA/VENTOLIN HFA) 108 (90 Base) MCG/ACT inhaler Indications:Moderate persistent asthma without complicationInhale 2 puffs into the lungs every 4 hours as needed for shortness of breath / dyspnea or wheezing 18 g albuterol (PROVENTIL) (2.5 MG/3ML) 0.083% neb solution Indications:COPD exacerbation (H)Take 1 vial (2.5 mg) by nebulization every 6 hours as needed for shortness of breath, wheezing or cough 90 mL alcohol swab prep pads Indications:New onset type 2 diabetes mellitus (H)Use to test blood sugar 2 times daily or as directed. 100 each amiodarone (PACERONE) 200 MG tablet Take 1 tablet (200 mg) by mouth every morning. 90 tablet ammonium lactate (AMLACTIN) 12 % external cream Indications:DermatitisApply topically 2 times daily 140 g apixaban ANTICOAGULANT (ELIQUIS ANTICOAGULANT) 5 MG tablet Indications:Paroxysmal atrial fibrillation (H)Take 1 tablet (5 mg) by mouth 2 times daily. 180 tablet Azithromycin (ZITHROMAX PO) Take 500 mg by mouth daily. B Jqgykwx-N-Ciwxw Acid TABS Take 1 tablet by mouth every morning. Bioflavonoid Products (CHARLENE-C PO) Take 1,000 mg by mouth 2 times daily blood glucose (NO BRAND SPECIFIED) lancets standard Indications:New onset type 2 diabetes mellitus (H)Use to test blood sugar 2 times daily or as directed. 200 each blood glucose (NO BRAND SPECIFIED) test strip Indications:New onset type 2 diabetes mellitus (H)Use to test blood sugar 2 times daily or as directed. 200 strip blood glucose monitoring (NO BRAND SPECIFIED) meter device kit Indications:New onset type 2 diabetes mellitus (H)Use to test blood sugar 2 times daily or as directed. 1 kit calcium carbonate (TUMS) 500 MG chewable tablet Take 1 chew tab by mouth 2 times daily. calcium carbonate (TUMS) 500 MG chewable tablet Indications:Acute on chronic respiratory failure with hypercapnia (H)Take 1 tablet (500 mg) by mouth 4 times daily as needed for heartburn.01/18/2025 Calcium Citrate-Vitamin D3 (GNP CALCIUM CITRATE +D3) 315-6.25 MG-MCG TABS Take 1 tablet by mouth 3 times daily. cholecalciferol (VITAMIN D3) 125 mcg (5000 units) capsule Take 125 mcg by mouth daily. cyanocobalamin (VITAMIN B-12) 1000 MCG tablet Take 1,000 mcg by mouth every morning. Dextromethorphan-guaiFENesin (ROBITUSSIN DM PO) Take 10 mLs by mouth. diclofenac (VOLTAREN) 1 % topical gel Indications:Chronic bilateral low back pain with right-sided sciaticaAPPLY 2 GRAMS TOPICALLY FOUR TIMES DAILY. Bilateral hips 200 g divalproex sodium extended-release (DEPAKOTE ER) 500 MG 24 hr tablet Indications:Nonintractable epilepsy with complex partial seizures (H), Intractable chronic migraine without aura and without status migrainosusTake 4 tablets (2,000 mg) by mouth at bedtime. 360 tablet fluticasone (FLONASE) 50 MCG/ACT nasal spray Indications:Chronic rhinitisUSE 2 SPRAYS IN EACH NOSTRIL ONCE DAILY 16 g gabapentin (NEURONTIN) 400 MG capsule Indications:Chronic bilateral low back pain with right-sided sciaticaTake 2 capsules (800 mg) by mouth 3 times daily 180 capsule galcanezumab-gnlm (EMGALITY) 120 MG/ML injection Indications:Intractable chronic migraine without aura and without status migrainosusInject 1 mL (120 mg) subcutaneously every 28 days. 1 mL guaiFENesin (ROBITUSSIN) 20 mg/mL liquid Take 200 mg by mouth every 4 hours as needed for cough guaiFENesin-dextromethorphan (ROBITUSSIN DM) 100-10 MG/5ML syrup Indications:Acute on chronic respiratory failure with hypercapnia (H)Take 10 mLs by mouth every 4 hours as needed for cough.01/18/2025 hydrocortisone (CORTEF) 10 MG tablet Indications:Adrenal insufficiencyTAKE 1 TABLET BY MOUTH EVERY MORNING;TAKE 1/2 TABLET (5MG) BY MOUTH EVERY EVENING 45 tablet insulin aspart (NOVOLOG FLEXPEN) 100 UNIT/ML pen Indications:Type 2 diabetes mellitus with other specified complication, with long-term current use of insulin (H)Novolog Flexpen Give before meals For Pre-Meal Glucose: 140-189 give 1 unit 190-239 give 2 units 240-289 give 3 units 290-339 give 4 units = or >340 give 5 units10/23/2024 insulin aspart (NOVOLOG FLEXPEN) 100 UNIT/ML pen Indications:Type 2 diabetes mellitus with other specified complication, with long-term current use of insulin (H)Novolog Flexpen 3 units with breakfast, lunch and dinner. Hold for premeal glucose <100 10/23/2024 insulin glargine (LANTUS PEN) 100 UNIT/ML pen Indications:Acute on chronic respiratory failure with hypercapnia (H)Inject 22 Units subcutaneously at bedtime.01/18/2025 insulin pen needle (29G X 12MM) 29G X 12MM miscellaneous Indications:New onset type 2 diabetes mellitus (H)Use pen needles daily or as directed. 100 each ipratropium (ATROVENT) 0.02 % neb solution Indications:Acute on chronic respiratory failure with hypercapnia (H)Take 2.5 mLs (0.5 mg) by nebulization 4 times daily.01/18/2025 levalbuterol (XOPENEX) 1.25 MG/3ML neb solution Indications:Acute on chronic respiratory failure with hypercapnia (H)Take 3 mLs (1.25 mg) by nebulization 4 times daily.01/18/2025 Lidocaine (LIDOCARE) 4 % Patch Indications:Chronic bilateral low back pain with right-sided sciaticaPlace 1 patch onto the skin every 24 hours Apply at 8AM and remove at 8PM. Off for 12 hours.05/30/2023 melatonin 5 MG CAPS Indications:Obstructive chronic bronchitis with exacerbation (H)Take 5 mg by mouth at bedtime 90 capsule Menthol-Methyl Salicylate (LETTY NELSON GREASELESS) cream Apply topically every evening Apply to back topically after lidocaine patch is removed at 8PM. metoprolol tartrate (LOPRESSOR) 25 MG tablet Indications:Acute on chronic respiratory failure with hypercapnia (H)Take 1 tablet (25 mg) by mouth 2 times daily.01/18/2025 montelukast (SINGULAIR) 10 MG tablet Indications:Moderate persistent asthma without complicationTake 1 tablet (10 mg) by mouth daily 30 tablet Multiple Vitamin (DAILY-SHELLEY) TABS Indications:Vitamin D deficiencyTake 1 tablet by mouth daily 30 tablet nicotine (COMMIT) 2 MG lozenge Indications:Tobacco abuse disorderPlace 1 lozenge (2 mg) inside cheek every hour as needed for nicotine withdrawal symptoms. 81 lozenge nicotine (NICODERM CQ) 14 MG/24HR 24 hr patch Indications:Tobacco abuse disorderAPPLY 1 PATCH TO CLEAN, DRY, HAIRLESS SKIN ONCE DAILY. REMOVE OLD PATCH BEFORE APPLYING NEW PATCH 28 patch 10007/05/2024 omeprazole (PRILOSEC) [address] capsule Indications:Gastroesophageal reflux disease with esophagitisTAKE 1 CAPSULE BY MOUTH TWICE DAILY - MORNING AND EVENING 180 capsule ondansetron (ZOFRAN) 4 MG tablet Indications:Intractable chronic migraine without aura and without status migrainosusTAKE 1 TABLET BY MOUTH EVERY 8 HOURS NEEDED FOR NAUSEA 12 tablet polyethylene glycol (MIRALAX) 17 GM/Dose powder Indications:Constipation, unspecified constipation typeTake 17 g by mouth daily as needed for constipation.10/23/2024 potassium chloride mckinley ER (KLOR-CON M10) 10 MEQ CR tablet Indications:HypokalemiaTake 1 tablet (10 mEq) by mouth daily.10/23/2024 rimegepant (NURTEC) 75 MG ODT tablet Indications:Intractable chronic migraine without aura and without status migrainosusTAKE 1 TABLET BY MOUTH NEEDED FOR MIGRAINE HEADACHE. MAX 1 TABLET PER 24 HOUR 8 tablet rosuvastatin (CRESTOR) 20 MG tablet Indications:Hyperlipidemia, unspecified hyperlipidemia typeTake 1 tablet (20 mg) by mouth at bedtime. Please make lab appt (LDL) for further refills 30 tablet senna-docusate (SENEXON-S) 8.6-50 MG tablet Indications:ConstipationTake 1 tablet by mouth every morning 30 tablet sertraline (ZOLOFT) 25 MG tablet Indications:PTSD (post-traumatic stress disorder),AnxietyTAKE 1 TABLET BY MOUTH ONCE DAILY. 30 tablet sodium chloride (OCEAN) 0.65 % nasal spray Indications:Dysfunction of both eustachian tubesNasal rinse x2 before Azelastine nasal spray 480 mL tiotropium (SPIRIVA RESPIMAT) 2.5 MCG/ACT inhaler Inhale 2 puffs into the lungs.10/28/2024 torsemide (DEMADEX) 10 MG tablet Indications:Acute on chronic respiratory failure with hypercapnia (H)Take 1 tablet (10 mg) by mouth daily.01/18/2025 traMADol 25 MG TABS tablet Indications:Acute on chronic respiratory failure with hypercapnia (H)Take 1 tablet (25 mg) by mouth every 12 hours as needed for moderate pain. 15 tablet 01/18/2025 TRELEGY ELLIPTA 100-62.5-25 MCG/ACT oral inhaler Indications:Chronic obstructive pulmonary disease, unspecified COPD type (H) INHALE 1 PUFF INTO THE LUNGS ONCE DAILY 60 each vitamin D2 (ERGOCALCIFEROL) 50701 units (1250 mcg) capsule Indications:Vitamin D deficiencyTake 1 capsule (50,000 Units) by mouth once a week.01/18/2025 ipratropium - albuterol 0.5 mg/2.5 mg/3 mL (DUONEB) 0.5-2.5 (3) MG/3ML neb solution Indications:Obstructive chronic bronchitis with exacerbation (H),Moderate persistent asthma without complicationNEBULIZE AND INHALE 1 VIAL BY MOUTH EVERY 4 HOURS NEEDED FOR SHORTNESS OF BREATH, DYSPNEA OR WHEEZE 180 mL documented as of this encounter Progress Notes * Nancy Roche RN - 10/26/2025 10:38 AM CST 1013- pt with clear lung sounds through out, slighty decrease effort with deep breathing. Denies any SOB or wheezing. O2 sats- 98% ETIC AIDE documented in this encounter Plan of Treatment DateTypeDepartmentCare Team (Latest Contact Info)Ruaqwaslpcd28/22/2025 2:00 PM CSTOffice Visit [facility] [address] [place] [phone] Nany Solitario NP [address] [place], [place] [address] 12/27/2025 11:00 AM CSTOffice Visit [facility] [place] [address] [place] [phone] Nany Solitario NP [address] [facility] [place] [id number] [place] [address] [facility] [address] [place], [place] [address] 04/28/2026 11:00 AM CDTOffice Visit [facility] [place] [address] [place] [address] Henry Motta MD [address] [place] [address] [facility] [address] [place], [place] [phone] documented as of this encounter Procedures Procedure NamePriorityDate/TimeAssociated DiagnosisCommentsNM MPI WITH LEXISCAN Jzkzkof1210/26/2025 11:57 AM DIETETIC AIDE Chest pain Congestive heart failure, unspecified HF chronicity, unspecified heart failure type (H) documented in this encounter Visit Diagnoses Not on filedocumented in this encounter Administered Medications Medication OrderMAR ActionAction DateDoseRateSite regadenoson (LEXISCAN) injection 0.4 mg 0.4 mg, Intravenous, ONCE, On Fri10/26/25 at 0930, For 1 dose, Give by rapid IV injection (approximately over 10-15 seconds). Follow with a saline flush immediately after regadenoson administration,then follow with radioactive tracer (radiopharmaceutical agent)., Cardiac Intra-procedure $Given10/26/2025 11:49 AM CST0.4 mg sodium chloride (PF) 0.9% PF flush 3 mL 3 mL, Intravenous, EVERY 8 HOURS, First dose on Fri10/26/25 at 0930, And Q1H PRN, to lock peripheral IV dormant line. , Cardiac Intra-procedure $Given10/26/2025 11:50 AM CST10 mLsdocumented in this encounter Additional Health Concerns InfectionOnset DateLast IndicatedResolved YuknCYXJ26/4Assessment Noted TimePHQ-9 Depression Total Score: 3:03 PM CSTdocumented as of this encounter Care Teams Team MemberRelationshipSpecialtyStart DateEnd Date Kiana Dennis [address] [place] [phone] PCP - GeneralFamily Practice02/25/25 Raphael Solo MD [address] [place], [place] [address] Adamdics03/06/15 Isac Mayorga MD [address] [place] [address] [address] [place], [place] [address] MDCardiology03/07/15 Henry Motta MD [address] [place] [address] [address] [place] [address] MDInternal Medicine04/17/15 Tania Arevalo MD [address] [place] [address] MDOphthalmology06/16/15 Paolo Ferris MD [address] [place] [address] [address] [place], [place] [address] Referring PhysicianInternal Medicine06/28/15 Rachid Han MD [address] [place] [address] [address] [place], [place] [address] MDOphthalmology07/05/15 Ave Del Toro MD [address] [place] [address] [address] [place], [place] [address] MDRheumatology07/20/15 Aleks Phillips MD [address] [place] [address] WSYlsivhmrnxxrk98/17/15 Aliyah Rust, HAIR DRYER SHOW OPERATIONS SUPERVISOR [address] [place] [address] Nurse PractitionerClinical Nurse Specialist03/19/16 Issac rGaham MD [address] [place] [address] MDNeurolog11/25/16 Ana Maria Hwang MD [address] [place] [address] [address] [place], [place] [address] MDInternal Znkwqzzp32/26/17 Marcial Astudillo MD [facility] [address] [facility] [address] [place] [address] ResidentStudent in organized health care education/training /6/17 Ekaterina Reardon MD [address] [place] [phone] Neurology02/03/18 Raphael Teresa MD [address] [place] [address] MDOrthopaedic Surgery03/12/18 Smooth Hussein MD [address] [place] [address] MDAnesthesiology04/27/18 La Lopez MD [address] [place] [address] 410915 MDNeurolog12/02/19 Issac Graham MD [address] [place] [address] Referring PhysicianNeurolog12/02/19 Natalie Vasques MD [address] [place] [address] Assigned PCP02/25/21 Mat Sanchez Jr., MD [address] [place] [address] ResidentStudent in organized health care education/training suwnjya12/25/21 Hussein Roth, RN Registered Nurse02/15/22 Lisa Tolbert PA-C Physician AssistantCardiovascular Disease04/02/22 Lisa Tolbert PA-C Physician AssistantCardiovascular Disease04/02/22 Yamila Alas, OD [address] [place] [address] [facility] [address] [place] [address] Optometry06/26/22 Robyn Walter, MACHINE CASTINGS PLASTERER [address] [place] [address] Nurse PractitionerCardiovascular Disease08/09/22 Vonnie Sweeney MD [address] [place], [place] [address] MDAnesthesiology12/18/22 Yamila Alas, OD [address] [place] [address] [facility] [address] [place], [place] [address] Optometry05/12/23 Danni Leonidas Night RT06/27/23 Shaggy Cintron MD [address] [place] [address] [place], [place] [address] Assigned Neuroscience Etwcmhvy30/7/23 Delonte Moody MD [address] [place] [address] [place], [place] [phone] NgycbcnamMqoosthtmrsdx61/6/23 Lucas Veliz MD [address] [facility] [address] [place] [address] MDOtolaryngology02/04/24 Dayron Sanchez, AuD [address] [place] [address] Audiology02/04/24 Ty Grewal MD [address] [address] [facility]04/29/24 Otilia Rendon [facility] PharmacistPharmacist08/02/24 Otilia Rendon [facility] Lmycwnwkkx09/8/24 Henry Motta MD [address] [facility] [address] [place], [place] [address] MDCritical Care04/26/25 Lucas Veliz MD [address] [facility] [address] [place], [place] [address] Assigned Surgical Provider05/09/25 Nany Solitario NP [address] [address] Assigned Heart and Vascular Provider08/09/25documented as of this encounter
--- OUTSIDE RECORDS SUMMARY | 2025-10-26 09:25 | XMS_ITS | Encounter Summary ---
Author Organization [facility] Address [address] [place] [address]. [place] [address] Care Team Providers Care Turbinated Bone Grinder Name Role Phone Raphael Solo MD Unavailable [phone] Isac Mayorga MD Unavailable [phone] Henry Motta MD Unavailable [phone] Tania Arevalo MD Unavailable [phone] Paolo Ferris MD Unavailable Rachid Han MD Unavailable [phone] MD Unavailable [phone] Aleks Phillips MD Unavailable [phone] Aliyah Rust APRN PSYCHIATRIC SECURITY NURSE Unavailable [phone] Issac Graham MD Unavailable Unavailable Ana Maria Hwang MD Unavailable [phone] Marcial Astudillo MD Unavailable [phone] Ekaterina Reardon MD Unavailable [phone] Raphael Teresa MD Unavailable [phone] Smooth Hussein MD Unavailable Unavailable La Lopez MD Unavailable Issac Graham MD Unavailable Unavailable Natalie Vasques MD Unavailable + Daniel Contreras MD, Willie Unavailable + [phone] Hussein Roth RN Unavailable Unavailable Liegl, Lisa Angela PA-C Unavailable Un available Liegl, Lisa Angela PA-C Unavailable Un available Yamila Alas OD Unavailable [phone] Robyn Walter CMA Unavailable [phone] Vonnie Sweeney MD Unavailable [phone] Yamila Alas OD Unavailable + [phone] Leonidas Razo Unavailable Unavailable Shaggy Cintron MD Unavailable Delonte Moody MD Unavailable [phone] Lucas Veliz MD Unavailable +[phone] Dayron Sanchez Unavailable +[phone] Ty Grewal MD Unavailable [phone] Otilia Rendon [facility] Unavailable Unavailable Otilia Rendon [facility] Unavailable Unavailable Kiana Dennis Primary Care Provider [phone] Henry Motta MD Unavailable [phone] Lucas Veliz MD Unavailable +[phone] Nany Solitario NP Unavailable [phone] Reason for Visit * Diagnostic Imaging NM (Routine) - AuthorizedSpecialtyDiagnoses / Procedures Referred By ContactReferred To ContactCardiology Diagnoses Chest pain Congestive heart failure, unspecified HF chronicity, unspecified heart failure type (H) Procedures NM Lexiscan stress test (nuc card) Nany Solitario NP [address] [address] Phone: tel: fax: [address] [facility] [address] [place] [address] Phone: tel: Referral Macie DateExpiration DateVisits RequestedVisits [id number]/19/202511/19/202655 Encounter Details DateTypeDepartmentCare Team (Latest Contact Info)Utcxpwunroj35/10/2025 9:25 AM WHANAU SUPPORT WORKER - 10/26/2025 11:59 PM CSTHospital Encounter [facility] [address] [facility] [address] [place] [phone] Nany Solitario NP [address] [facility] [place] [address] Discharge Disposition: [...] of Social Gatherings with Friends and FamilyPatient vzajsbqb30/27/2020Attends Temple ServicesPatient pnubmltd07/27/2020Active Member of Clubs or TnvxhtsxjnuktPw56/27/2020Attends Club or Organization MeetingsPatient smpsvmyn69/27/2020Marital StatusLiving with mzfgrfk9112/13/2019 AUDIT-CAnswerDate RecordedQ1: How often do you have a drink containing alcohol? Never12/13/2019Q2: How many drinks containing alcohol do you have on a typical day when you are drinking?Patient psoroizu21/27/2020Q3: How often do you have six or more drinks on one occasion?Patient asxlcevq96/27/2020PHQ-2AnswerDate RecordedPHQ-2 Cdkij974[facility] Occupational Health - Occupational Stress QuestionnaireAnswerDate RecordedFeeling of StressOnly a ukusdt4512/13/2019Exercise Vital SignAnswerDate RecordedDays of Exercise per Week0 [...] in an abandoned building, in an overnight care home, or couch-surfing.)Yes01/14/2025re you worried about losing your [...] have received?Associate degree: occupational, technical, or vocational hpxwxma2212/13/2019CommentsNoSex and Gender InformationValue Date RecordedSex Assigned at BirthNot on fileLegal MwsAzkklx77/04/2012 3:32 AM CSTGender IdentityNot on fileSexual OrientationNot on filedocumented as of this encounter Medications at Time of Discharge [...] Take 500 mg by mouth daily. B Ogvunak-T-Ciidj Acid TABS Take 1 tablet by mouth [...] (5MG) BY MOUTH EVERY EVENING 45 tablet 11112/22/2022 insulin aspart (NOVOLOG FLEXPEN) 100 UNIT/ML pen [...] PATCH BEFORE APPLYING NEW PATCH 28 patch omeprazole (PRILOSEC) [address] capsule Indications:Gastroesophageal [...] tablet by mouth every morning 30 tablet 11112/22/2022 sertraline (ZOLOFT) 25 MG tablet Indications:PTSD (post-traumatic [...] ONCE DAILY 60 each vitamin D2 (ERGOCALCIFEROL) 16045 units (1250 mcg) capsule Indications:Vitamin D deficiencyTake 1 capsule (50,000 Units) by mouth once a week.01/18/2025 ipratropium - albuterol 0.5 mg/2.5 mg/3 mL (DUONEB) 0.5-2.5 (3) MG/3ML neb solution Indications:Obstructive chronic bronchitis with exacerbation (H),Moderate persistent asthma without complicationNEBULIZE AND INHALE 1 VIAL BY MOUTH EVERY 4 HOURS NEEDED FOR SHORTNESS OF BREATH, DYSPNEA OR WHEEZE 180 mL /documented as of this encounter Plan of Treatment DateTypeDepartmentCare Team (Latest Contact Info)Rgfdgiyvgkk67/22/2025 2:00 PM CSTOffice Visit [address] [place] [phone] Nany Solitario NP [address] [address] 12/27/2025 11:[address] [facility] [address] [place] [phone] Nany Solitario NP [address] [address] [place] [address] [address] [facility] [address] [place], [place] [address] 04/28/2026 11:00 AM CDTOffice Visit [facility] [address] [place] [address] Henry Motta MD [address] [facility] [address] [place], [place] [address] documented as of this encounter Procedures Procedure NamePriorityDate/TimeAssociated DiagnosisCommentsNM MPI WITH LEXISCAN Yncbbyr8510/26/2025 11:57 AM WHANAU SUPPORT WORKER Chest pain Congestive heart failure, unspecified HF chronicity, unspecified heart failure type (H) documented in this encounter Results * NM Lexiscan stress test (nuc card) (10/26/2025 11:57 AM WHANAU SUPPORT WORKER)ComponentValueRef RangeTest MethodAnalysis TimePerformed AtPathologist SignatureTarget HR152 RADIANTBaseline Systolic CI120SLZDAYPZloxlkpt Diastolic IN06LZQGPXCOdve Stress Systolic BB829FSVDHWPVenv Stress Diastolic UV23HISDRIIQexzvkhz ER50zduNXUBIQO Max CK00TBETONLEcs Predicted HR53%RADIANTRate Pressure Product8,800.0RADIANT Left Ventricular EF69%RADIANTAnatomical RegionLateralityModalityChestNuclear MedicineSpecimen (Source)Anatomical Location / LateralityCollection Method / VolumeCollection TimeReceived Time Narrative 10/26/2025 2:26 PM WHANAU SUPPORT WORKER The nuclear stress test is negative for inducible myocardial ischemia or infarction. ?Left ventricular function is normal. ?The left ventricular ejection fraction at stress is 69%. ?In comparison, nuclear stress October 2024 was normal. Stress Findings A pharmacologic stress test was performed following a sitting Lexiscan protocol using 0.4 mg of intravenous regadenoson administered over 10 seconds under the supervision of Dr. Torres Merritt. The supervising registered nurse observed typical vasodilator side effects during the stress test. ECG Baseline electrocardiogram demonstrates sinus rhythm. The stress electrocardiogram is negative for inducible ischemic EKG changes. There were no arrhythmias during stress. There were no arrhythmias during recovery. Isotope Administration Nuclear imaging was accomplished using a one day protocol with 18.1 mCi of technetium tetrofosmin injected at the completion of Lexiscan infusion on 10/26/2025 and 6.28 mCi of technetium tetrofosmin at rest on 10/26/2025. Nuclear Study Quality Final image quality is satisfactory. Perfusion Defect The nuclear stress test is negative for inducible myocardial ischemia or infarction. The left ventricular ejection fraction at stress is 69%. Left ventricular function is normal. Nuclear Prior Study A prior study was conducted on 10/22/2024. Perfusion Scoring Stress Summed Score: 0 Percent Normal: 0.00% The left ventricular perfusion is normal. Perfusion Scoring Resting Summed Score: 0 Percent Normal: 0.00% The left ventricular perfusion is normal. Perfusion Scores: SRS Score: 0 Percentage Abnormal: 0.00% Perfusion Scores: SSS Score: 0 Percentage Abnormal: 0.00% Perfusion Scores: SDS Score: 0 Percentage Abnormal: 0.00% Wall Motion Score Index: 1.00 The left ventricular wall motion is normal. Authorizing ProviderResult TypeResult StatusElizabeth Altaf NPIMG NM ORDERABLES Final Result documented in this encounter Visit Diagnoses Not on filedocumented in this encounter Additional Health Concerns InfectionOnset DateLast IndicatedResolved VjyyKDAJ67ssessment Noted TimePHQ-9 Depression Total Score: 111 3:03 PM CSTdocumented as of this encounter Care Teams Team MemberRelationshipSpecialtyStart DateEnd Date Kiana Dennis [address] [place] [address] [facility] - [facility]25 Raphael Solo MD [address] [place], [place] [address] Orthopedics03/06/15 Isac Mayorga MD [address] [facility] [address] [place], [place] [address] MDCardiology03/07/15 Henry Motta MD [address] [facility] [address] [place], [place] [address] MDInternal Medicine04/17/15 Tania Arevalo MD [address] [place], [place] [address] MDOphthalmology06/16/15 Paolo Ferris MD [address] [facility] [address] [place], [place] [address] Referring PhysicianInternal Medicine06/28/15 Rachid Han MD [address] [facility] [address] [place], [place] [address] MDOphthalmology07/05/15 Ave Del Toro MD [address] [facility] [address] [place], [place] [address] MDRheumatology07/20/15 Aleks Phillips MD [address] [place] [address] UOOxlrtgztfhxyi48/17/15 Aliyah Rust APRN CNS [address] [place] [address] Nurse PractitionerClinical Nurse Specialist03/19/16 Issac Graham MD [address] [place] [address] MDNeurolog11/25/16 Ana Maria Hwang MD [address] [place] [address] [address] [place], [place] [address] Internal Ovqhkyuu97/26/17 Marcial Astudillo MD [facility] [address] [facility] [address] [place], [place] [address] ResidentStudent in organized health care education/training hjkzoyh81/6/17 Ekaterina Reardon MD [address] [place] [address] Neurology02/03/18 Raphael Teresa MD [facility] [address] Orthopaedic Surgery03/12/18 Smooth Hussein MD [facility] [address] [address] MDAnesthesiology04/27/18 La Lopez MD [address] [place], [place] [address] [place], [place] [address] Neurology1 Issac Graham MD [address] [place] [address] Referring PhysicianNeurology1 Natalie Vasques MD [address] [facility] [address] [place] [address] Assigned PCP02/25/21 Mat Sanchez Jr., MD [address] [place] [address] ResidentStudent in organized health care education/training eaghukd89/25/21 Hussein Roth, RN Registered Nurse02/15/22 Lisa Tolbert PA-C Physician AssistantCardiovascular Disease04/02/22 Lisa Tolbert PA-C Physician AssistantCardiovascular Disease04/02/22 Yamila Alas, CHIQUIS [address] [place] [address] 825865 Optometry06/26/22 Robyn Walter, CMA [address] [place], [place] [address] Nurse PractitionerCardiovascular Disease08/09/22 Vonnie Sweeney MD [address] [place] [address] MDAnesthesiology12/18/22 Yamila Alas, OD [address] [address] Optometry05/12/23 Leonidas Razo RT06/27/23 Shaggy Cintron MD [address] [place] [address] [place], [place] [address] Assigned Neuroscience Kbxlgybc92/7/23 Delonte Moody MD [address] [place] [address] [place], [place] [id number] EaznjlprjOionrisolxjws82/6/23 Lucas Veliz MD [address] [facility] [address] [place], [place] [address] MDOtolaryngology02/04/24 Dayron Sanchez AuD [address] [place] [address] Audiology02/04/24 Ty Grewal MD [address] [address] [facility]04/29/24 Otilia Rendon Cirilo PharmacistPharmacist08/02/24 Otilia Rendon [facility] Xguxxusoby75/8/24 Henry Motta MD [address] [facility] [address] [place], [place] [address] MDCritical Care04/26/25 Lucas Veliz MD [address] [facility] [address] [place], [place] [address] Assigned Surgical Provider05/09/25 Nany Solitario NP [address] [address] Assigned Heart and Vascular Provider08/09/25documented as of this encounter
--- OUTSIDE RECORDS SUMMARY | 2025-10-26 09:25 | XMS_ITS | Encounter Summary ---
Author Organization [place] Address [address] [place] [address]. [place] [address] Care Team Providers Care Acid Wash Operator Name Role Phone Raphael Solo MD Unavailable [phone] Isac Mayorga MD Unavailable [phone] Henry Motta MD Unavailable [phone] Tania Arevalo MD Unavailable +[phone] Paolo Ferris MD Unavailable Rachid Han MD Unavailable +[phone] MD Unavailable +[phone] Aleks Phillips MD Unavailable + [phone] Aliyah Rust APRN ENGINE COWLING INSTALLER Unavailable [phone] Issac Graham MD Unavailable Unavailable Ana Maria Hwang MD Unavailable +[phone] Marcial Astudillo MD Unavailable [phone] Ekaterina Reardon MD Unavailable +[phone] Raphael Teresa MD Unavailable [phone] Smooth Hussein MD Unavailable Unavailable La Lopez MD Unavailable Issac Graham MD Unavailable Unavailable Natalie Vasques MD Unavailable + Daniel Contreras MD, Willie Unavailable + [phone] Hussein Roth RN Unavailable Unavailable Liegl, Lisa Angela PA-C Unavailable Un available Liegl, Lisa Angela PA-C Unavailable Un available Yamila Alas OD Unavailable [phone] Roybn Walter RETAIL SUPERVISOR Unavailable +[phone] Vonnie Sweeney MD Unavailable [phone] Yamila Alas OD Unavailable + [phone] Leonidas Razo Unavailable Unavailable Shaggy Cintron MD Unavailable Delonte Moody MD Unavailable +[phone] Lucas Veliz MD Unavailable +[phone] Dayron Sanchez Unavailable +[phone] Ty Grewal MD Unavailable [phone] Otilia Rendon [facility] Unavailable Unavailable Otilia Rendon [facility] Unavailable Unavailable Kiana Dennis Primary Care Provider [phone] Henry Motta MD Unavailable [phone] Lucas Veliz MD Unavailable +[phone] Nany Solitario NP Unavailable [phone] Reason for Referral * Diagnostic Imaging NM (Routine) - AuthorizedSpecialtyDiagnoses / Procedures Referred By ContactReferred To ContactCardiology Diagnoses Chest pain Congestive heart failure, unspecified HF chronicity, unspecified heart failure type (H) Procedures NM Lexiscan stress test (nuc card) Nany Solitario NP [address] [address] Phone: tel: fax: [facility] [address] [place] [address] Phone: tel: Referral IDStaCristofer DateExpiration DateVisits RequestedVisits [id number]/19/202511/19/202655 RVISOR DELIVERY DEPARTMENT Reason for Visit * Diagnostic Imaging NM (Routine) - AuthorizedSpecialtyDiagnoses / Procedures Referred By ContactReferred To ContactCardiology Diagnoses Chest pain Congestive heart failure, unspecified HF chronicity, unspecified heart failure type (H) Procedures NM Lexiscan stress test (nuc card) Nany Solitario NP [address] [place] [address] Phone: tel: fax: [address] [place] [address] Phone: tel: Referral IDStaCristofer DateExpiration DateVisits RequestedVisits [id number]/19/202511/19/202655 Encounter Details DateTypeDepartmentCare Team (Latest Contact Info)Ilkzblycagc83/10/2025 9:25 AM SUPERVISOR DELIVERY DEPARTMENT - 10/26/2025 11:59 PM CSTHospital Encounter [address] [place] [address] Nany Solitario NP [address] [facility] [place] [id number] Chest pain; Congestive heart failure, unspecified HF chronicity, unspecified heart failure type (H) Discharge Disposition: Home or Self Care Social History Tobacco UseTypesPacks/DayYears UsedDateSmoking Tobacco: FormerCigarettes0.151 Started: 11/17/1974Smokeless Tobacco: Never Comments:1-2 cigarettes a da y Alcohol UseStandard Drinks/WeekCommentsNot Currently0 (1 standard drink = 0.6 oz pure alcohol)Holidays, 1 glass on new years.Social Connection and Isolation PanelAnswerDate RecordedFrequency of Communication with Friends and FamilyTwice a week12/13/2019Frequency of Social Gatherings with Friends and FamilyPatient fwsoxhrf69/27/2020Attends Holiness ServicesPatient txrsbilk07/27/2020Active Member of Clubs or EcdpwlwbjchayHt31/27/2020Attends Club or Organization MeetingsPatient pgywesjo06/27/2020Marital StatusLiving with srbqvhe2912/13/2019 AUDIT-CAnswerDate RecordedQ1: How often do you have a drink containing alcohol? Never12/13/2019Q2: How many drinks containing alcohol do you have on a typical day when you are drinking?Patient letvamhl63/27/2020Q3: How often do you have six or more drinks on one occasion?Patient /27/2020PHQ-2AnswerDate RecordedPHQ-2 Nqval757Finblue mountain hospital [place] of Occupational Health - Occupational Stress QuestionnaireAnswerDate RecordedFeeling of StressOnly a rjonqn9412/13/2019Exercise Vital SignAnswerDate RecordedDays of Exercise per Week0 [...] in an abandoned building, in an overnight long term, or couch-surfing.)Yes01/14/2025re you worried about losing your [...] have received?Associate degree: occupational, technical, or vocational opzrtya9612/13/2019CommentsNoSex and Gender InformationValue Date RecordedSex Assigned at BirthNot on fileLegal KcfStzxwe81/04/2012 3:32 AM CSTGender IdentityNot on fileSexual OrientationNot on filedocumented as of this encounter Last Filed Vital Signs Vital SignReadingTime TakenCommentsBlood Yoatwwuq830/7810/26/2025 9:00 AM SUPERVISOR DELIVERY DEPARTMENT Appph252510/26/2025 9:00 AM CSTTemperature--Respiratory Rate--Oxygen Uudthhtlnd24% 10/26/2025 9:00 AM CSTInhaled Oxygen Concentration--Fxmldp17.1 kg (214 lb) 10/26/2025 9:00 AM REKKuijoz943.5 cm (5' 2)10/26/2025 9:00 AM CSTBody Mass Index39.14112/27/2024 9:00 AM CSTdocumented in this encounter Medications at Time of [...] Take 500 mg by mouth daily. B Cnwjmhu-R-Wtxta Acid TABS Take 1 tablet by mouth [...] x2 before Azelastine nasal spray 480 mL 107/ tiotropium (SPIRIVA RESPIMAT) 2.5 MCG/ACT inhaler Inhale [...] ONCE DAILY 60 each vitamin D2 (ERGOCALCIFEROL) 22310 units (1250 mcg) capsule Indications:Vitamin D deficiencyTake 1 capsule (50,000 Units) by mouth once a week.01/18/2025 ipratropium - albuterol 0.5 mg/2.5 mg/3 mL (DUONEB) 0.5-2.5 (3) MG/3ML neb solution Indications:Obstructive chronic bronchitis with exacerbation (H),Moderate persistent asthma without complicationNEBULIZE AND INHALE 1 VIAL BY MOUTH EVERY 4 HOURS NEEDED FOR SHORTNESS OF BREATH, DYSPNEA OR WHEEZE 180 mL documented as of this encounter Plan of Treatment DateTypeDepartmentCare Team (Latest Contact Info)Qsdcjltjdnq17/22/2025 2:00 PM CSTOffice Visit [facility] [address] [place] [phone] Nany Solitario NP [address] [address] 12/27/2025 11:00 AM CSTOffice Visit [facility] [place] [address] [place] [phone] Nany Solitario NP [address] 408895 [place] [address] [address] [facility] [address] [place] [address] 04/28/2026 11:00 AM CDTOffice Visit [facility] [address] [place] [address] Henry Motta MD 420 [facility] 276 [place], [place] [address] documented as of this encounter Procedures Procedure NamePriorityDate/TimeAssociated DiagnosisCommentsNM MPI WITH LEXISCAN Tssemdx1410/26/2025 11:57 AM SUPERVISOR DELIVERY DEPARTMENT Chest pain Congestive heart failure, unspecified HF chronicity, unspecified heart failure type (H) documented in this encounter Results * NM Lexiscan stress test (nuc card) (10/26/2025 11:57 AM SUPERVISOR DELIVERY DEPARTMENT)ComponentValueRef RangeTest MethodAnalysis TimePerformed AtPathologist SignatureTarget HR152 RADIANTBaseline Systolic UH059LUIXYHMUcewodnv Diastolic GQ56RQTMJHYWgnz Stress Systolic IP877WZNWSIKTlix Stress Diastolic BU29KOEJOURLzybrkaf MD78pllPPCMGCG Max FR80EURXTUNHve Predicted HR53%RADIANTRate Pressure Product8,800.0RADIANT Left Ventricular EF69%RADIANTAnatomical RegionLateralityModalityChestNuclear MedicineSpecimen (Source)Anatomical Location / LateralityCollection Method / VolumeCollection TimeReceived Time Narrative 10/26/2025 2:26 PM SUPERVISOR DELIVERY DEPARTMENT The nuclear stress test is negative for [...] wall motion is normal. Authorizing ProviderResult TypeResult StatusElizabeSycamore Medical Center ORDERABLES Final Result documented in this encounter Visit Diagnoses Diagnosis Chest pain Chest pain, unspecified Congestive heart failure, unspecified HF chronicity, unspecified heart failure type (H) documented in this encounter Administered Medications Medication OrderMAR ActionAction DateDoseRateSite sodium chloride (PF) 0.9% PF flush 10 mL 10 mL, Intravenous, ONCE, On Fri10/26/25 at 1030, For 1 dose $Given10/26/2025 10:20 AM CST10 mLs technetium Tc 99m tetrofosmin 2UD study (MYOVIEW) radioisotope injection 3-42 millicurie 3-42 millicurie, Intravenous, 2 TIMES DAILY PRN, 2 doses, Starting on Fri10/26/25 at 1004, For 2 doses, Radioisotope, supplied by and administered by Nuclear Medicine. *HW* $Given10/26/2025 11:52 AM CST18.1 millicuries$Given10/26/2025 10:20 AM CST6.28 millicuriesdocumented in this encounter Additional Health Concerns InfectionOnset DateLast IndicatedResolved EgbbGQNY97/02/30532511/18/2023ssessment Noted TimePHQ-9 Depression Total Score: 111 3:03 PM CSTdocumented as of this encounter Care Teams Team MemberRelationshipSpecialtyStart DateEnd Date Kiana Dennis [address] [place] [address] [facility] - [facility]/25 Raphael Solo MD 9 [place], [place] 138[address] Orthopedics03/06/15 Isac Mayorga MD 420 [facility] 508 [place], [place] 3[address] MDCardiology03/07/15 Henry Motta MD 420 [facility] 276 [place] [address] MDInternal Medicine04/17/15 Tania Arevalo MD 516 [facility] [place] [address] Ophthalmology06/16/15 Paolo Ferris MD 420 [facility] 284 [place], [place] [address] Referring PhysicianInternal Medicine06/28/15 Rachid Han MD 420 [facility] 284 [place], [place] 8[address] MDOphthalmology07/05/15 Ave Del Toro MD [address] [place] [address] 88 [place], [place] [address] MDRheumatology07/20/15 Aleks Phillips MD 420 [place], [place] 3[address]65 YMAktaaxzdmkpfw80/17/15 Aliyah Rust, CNC MACHINIST 2ND SHIFT ENGINE COWLING INSTALLER 420 [place], [place] [address] Nurse PractitionerClinical Nurse Specialist03/19/16 Issac Graham MD 420 [place] [address] MDNeurolog11/25/16 Ana Maria Hwang MD 420 [facility] 101 [place], [place] [address] MDInternal Jxcrrblf06/26/17 Marcial Astudillo MD [facility] 516 [facility] 98 [place], [place] [address] ResidentStudent in organized health care education/training ufbuvwr56/6/17 Ekaterina Reardon MD [address] [place] [address] 278165 Neurology02/03/18 Raphael Teresa MD [address] [place], [place] [address] [place] [address] Orthopaedic Surgery03/12/18 Smooth Hussein MD [facility] [facility] [address] [place] [address] MDAnesthesiology04/27/18 La Lopez MD [address] [place] [address] MDNeurology1 Issac Graham MD [address] [place] [address] Referring PhysicianNeurology1 Natalie Vasques MD [address] [place] [address] 444185 Assigned PCP02/25/21 Mat Sanchez Jr., MD [address] [place] [address] 463475 ResidentStudent in organized health care education/training fdnatma28/25/21 Hussein Roth, RN Registered Nurse02/15/22 Lisa Tolbert PA-C Physician AssistantCardiovascular Disease04/02/22 Lisa Tolbert PA-C Physician AssistantCardiovascular Disease04/02/22 Yamila Alas OD [address] [place] [address] 493 [place], [place] 3[address]25 Optometry06/26/22 Robyn Walter, RETAIL SUPERVISOR [address] [place] [address] Nurse PractitionerCardiovascular Disease08/09/22 Vonnie Sweeney MD [address] [place] [address] 6[address]45 MDAnesthesiology12/18/22 Yamila Alas OD [address] [place] [address] [facility] [address] [place], [place] [address] Optometry05/12/23 Danni, Leonidas Night RT06/27/23 Shaggy Cintron MD [address] [place] [address] Assigned Neuroscience Tbgxsuev00/7/23 Delonte Moody MD [address] [place] [address] WpuimvfvrNumucckvluepf17/6/23 Lucas Veliz MD 420 [facility] 396 [place], [place] 1[address] MDOtolaryngology02/04/24 Dayron Sanchez, [place] [address] [place] [address] 563099 Audiology02/04/24 Ty Grewal MD 6401 [facility] [place], [place] [address] [employer]04/29/24 Otilia Rendon RPH PharmacistPharmacist08/02/24 Otilia Rendon RPH [facility] Byptswuduz06/8/24 Henry Motta MD [address] [place] [address] [facility] 276 [place], [place] [address] MDCritical Care04/26/25 Lucas Veliz MD [address] [place] [address] [facility] 396 [place] [address] Assigned Surgical Provider05/09/25 Nany Solitario NP [address] [place] [address] Assigned Heart and Vascular Provider08/09/25documented as of this encounter
--- OUTSIDE RECORDS SUMMARY | 2025-10-26 09:25 | XMS_ITS | Encounter Summary ---
Author Organization [place] Address [address] [place] [address]. [place] [address] Care Team Providers Care Cost Coordinator Name Role Phone Raphael Solo MD Unavailable [phone] Isac Mayorga MD Unavailable [phone] Henry Motta MD Unavailable [phone] Tania Arevalo MD Unavailable [phone] Paolo Ferris MD Unavailable Rachid Han MD Unavailable +[phone] MD Unavailable +[phone] Aleks Phillips MD Unavailable [phone] Aliyah Rust APRN TAPE EDGE MACHINE OPERATOR Unavailable [phone] Issac Graham MD Unavailable Unavailable Ana Maria Hwang MD Unavailable +[phone] Marcial Astudillo MD Unavailable [phone] Ekaterina Reardon MD Unavailable [phone] Raphael Teresa MD Unavailable [phone] Smooth Hussein MD Unavailable Unavailable La Lopez MD Unavailable Issac Graham MD Unavailable Unavailable Natalie Vasques MD Unavailable + Daniel Contreras MD, Willie Unavailable + [phone] Hussein Roth RN Unavailable Unavailable Liegl, Lisa Angela PA-C Unavailable Un available Liegl, Lisa Angela PA-C Unavailable Un available Yamila Alas OD Unavailable [phone] Robyn Walter ELECTRONIC DEVICE REPAIRER Unavailable +[phone] Vonnie Sweeney MD Unavailable [phone] Yamila Alas OD Unavailable + [phone] Leonidas Razo Unavailable Unavailable Shaggy Cintron MD Unavailable Delonte oMody MD Unavailable [phone] Lucas Veliz MD Unavailable +62 Dayron Sanchez Unavailable +[phone] Ty Grewal MD Unavailable [phone] Otilia Rendon [facility] Unavailable Unavailable Otilia Rendon [facility] Unavailable Unavailable Kiana Dennis Primary Care Provider [phone] Henry Motta MD Unavailable [phone] Lucas Veliz MD Unavailable +[phone] Nany Solitario NP Unavailable [phone] Reason for Visit * Diagnostic Imaging NM (Routine) - AuthorizedSpecialtyDiagnoses / Procedures Referred By ContactReferred To ContactCardiology Diagnoses Chest pain Congestive heart failure, unspecified HF chronicity, unspecified heart failure type (H) Procedures NM Lexiscan stress test (nuc card) Nany Solitario NP [address] [address] Phone: tel: fax: [facility] [address] [facility] [address] [place] [address] Phone: tel: Referral Macie DateExpiration DateVisits RequestedVisits [id number]/19/202511/19/202655 Encounter Details DateTypeDepartmentCare Team (Latest Contact Info)Amtmivtakef99/10/2025 9:25 AM DRAFTER (CAD) ELECTRONIC - 10/26/2025 11:[address]ospital Encounter [facility] [address] [facility] [address] [place] [phone] Nany Solitario NP 7415 [facility] [place] [address] Discharge Disposition: Home or Self Care Social History Tobacco UseTypesPacks/DayYears UsedDateSmoking Tobacco: FormerCigarettes0.151 Started: 11/17/1974Smokeless Tobacco: Never Comments:1-2 cigarettes a da y Alcohol UseStandard Drinks/WeekCommentsNot Currently0 (1 standard drink = 0.6 oz pure alcohol)Holidays, 1 glass on new years.Social Connection and Isolation PanelAnswerDate RecordedFrequency of Communication with Friends and FamilyTwice a week12/13/2019Frequency of Social Gatherings with Friends and FamilyPatient ralzjxvu89/27/2020Attends Anglican ServicesPatient vgxyywrn41/27/2020Active Member of Clubs or AjsenwbysxrdqBe38/27/2020Attends Club or Organization MeetingsPatient sxajzwqc72/27/2020Marital StatusLiving with scpjsdu4612/13/2019 AUDIT-CAnswerDate RecordedQ1: How often do you have a drink containing alcohol? Never12/13/2019Q2: How many drinks containing alcohol do you have on a typical day when you are drinking?Patient wpdynsfh76/27/2020Q3: How often do you have six or more drinks on one occasion?Patient eidqptfb07/27/2020PHQ-2AnswerDate RecordedPHQ-2 Bejot462Finlakeview hospital [place] of Occupational Health - Occupational Stress QuestionnaireAnswerDate RecordedFeeling of StressOnly a rlimxq5712/13/2019Exercise Vital SignAnswerDate RecordedDays of Exercise per Week0 [...] have received?Associate degree: occupational, technical, or vocational tjmcows4912/13/2019CommentsNoSex and Gender InformationValue Date RecordedSex Assigned at BirthNot on fileLegal QcxVjlqcr66/04/2012 3:32 AM CSTGender IdentityNot on fileSexual OrientationNot [...] Take 500 mg by mouth daily. B Mohnqwn-W-Rctwb Acid TABS Take 1 tablet by mouth [...] ONCE DAILY 60 each vitamin D2 (ERGOCALCIFEROL) 18872 units (1250 mcg) capsule Indications:Vitamin D deficiencyTake [...] Plan of Treatment DateTypeDepartmentCare Team (Latest Contact Info)Jjhbteisnlg60/22/2025 2:00 PM CSTOffice Visit [address] [place] [address] Nany Solitario NP [address] 9578[address] 12/27/2025 11:00 AM CSTOffice Visit [facility] [place] [address] [place] [phone] Nany Solitario NP [address] 924435 [place] [address] [address] [facility] 202 [place], [place] [address] 04/28/2026 11:00 AM CDTOffice Visit [facility] [address] [place] [address] Henry Motta MD 420 [facility] [address] [place], [place] [address] documented as of this encounter Procedures Procedure NamePriorityDate/TimeAssociated DiagnosisCommentsNM MPI WITH LEXISCAN Rjnpwqw4010/26/2025 11:57 AM DRAFTER (CAD) ELECTRONIC Chest pain Congestive heart failure, unspecified HF chronicity, unspecified heart failure type (H) documented in this encounter Results * NM Lexiscan stress test (nuc card) (10/26/2025 11:57 AM DRAFTER (CAD) ELECTRONIC)ComponentValueRef RangeTest MethodAnalysis TimePerformed AtPathologist SignatureTarget HR152 RADIANTBaseline Systolic UD748KPUTGYGBdyywmnl Diastolic HB66EWUYUSLUhwk Stress Systolic YM349ITKXFOIFpuq Stress Diastolic SW04LXLBDSDCizfnzvv FZ37cbxIIZVLEQ Max AJ19TKYGDASZbz Predicted HR53%RADIANTRate Pressure Product8,800.0RADIANT Left Ventricular EF69%RADIANTAnatomical RegionLateralityModalityChestNuclear MedicineSpecimen (Source)Anatomical Location / LateralityCollection Method / VolumeCollection TimeReceived Time Narrative 10/26/2025 2:26 PM DRAFTER (CAD) ELECTRONIC The nuclear stress test is negative for [...] encounter Additional Health Concerns InfectionOnset DateLast IndicatedResolved JfdlRUEX68ssessment Noted TimePHQ-9 Depression Total Score: 111 3:03 PM CSTdocumented as of this encounter Care Teams Team MemberRelationshipSpecialtyStart DateEnd Date Kiana Dennis 700 [place] [address] PCP - GeneralMyrtue Medical Centerly Practice02/25/25 Raphael Solo MD 909 [place], [place] 4[address] Orthopedics03/06/15 Isac Mayorga MD 420 [facility] 508 [place], [place] [address] MDCardiology03/07/15 Henry Motta MD 420 [facility] 276 [place], [place] [address] MDInternal Medicine04/17/15 Tania Arevalo MD 516 [place], [place] [address] MDOphthalmology06/16/15 Paolo Ferris MD 420 [facility] 284 [place], [place] [address] Referring PhysicianInternal Medicine06/28/15 Rachid Han MD 420 [facility] 284 [place], [place] 8[address] MDOphthalmology07/05/15 Ave Del Toro MD 515 [facility] 88 [place], [place] [address] MDRheumatology07/20/15 Aleks Phillips MD [address] [place] [address] HUXjnwibjlfqqaq24/17/15 Aliyah Rust APRN CNS [address] [place] [address] Nurse PractitionerClinical Nurse Specialist03/19/16 Issac Graham MD [address] [place] [address] MDNeurolog11/25/16 Ana Maria Hwang MD [address] [place] [address] 101 [place], [place] [address]305 Internal Hksozwui83/26/17 Marcila Astudillo MD [facility] 516 [facility] 98 [place], [place] 218505 ResidentStudent in organized health care education/training qtzxhfu39/6/17 Ekaterina Reardon MD [address] [place] [address] Neurology02/03/18 Raphael Teresa MD [facility] [address] [address] Orthopaedic Surgery03/12/18 Smooth Hussein MD [facility] [address] [address] MDAnesthesiology04/27/18 La Lopez MD [address] [place], [place] [address] [place], [place] 15[address] Neurology1 Issac Graham MD 420 [place] [address] Referring PhysicianNeurology1 Natalie Vasques MD 909 [facility] 2121 [place] [address] Assigned PCP02/25/21 Mat Sanchez Jr., MD [address] [place] [address] 845685 ResidentStudent in organized health care education/training oyomxal41/25/21 Hussein Roth, RN Registered Nurse02/15/22 Lisa Tolbert PA-C Physician AssistantCardiovascular Disease04/02/22 Lisa Tolbert PA-C Physician AssistantCardiovascular Disease04/02/22 Yamila Alas, [place] [address] [place] [address] 337825 Optometry06/26/22 Robyn Walter, ELECTRONIC DEVICE REPAIRER [address] [place] [place], [place] [address] Nurse PractitionerCardiovascular Disease08/09/22 Vonnie Sweeney MD [address] [place] [address] MDAnesthesiology12/18/22 Yamila Alas, OD [address] [address] Optometry05/12/23 Leonidas Razo RT06/27/23 Shaggy Cintron MD [address] [place], [place] [address] Assigned Neuroscience Prhtvryq49/7/23 Delonte Moody MD [address] [place], [place] [address] XajtjqaolNmzychrcyupfd57/6/23 Lucas Veliz MD [address] [place] [address] [facility] 396 [place], [place] [address] MDOtolaryngology02/04/24 [place]ron [place] Au[place] [address] [place] [address] Audiology02/04/24 Ty Grewal MD [address] 898385 [facility]04/29/24 Otilia Rendon Cirilo PharmacistPharmacist08/02/24 Otilia Rendon [facility] Hncgyuqzol57/8/24 Henry Motta MD 420 [facility] 276 [place], [place] [address] MDCritical Care04/26/25 Lucas Veliz MD [address] [place] [address] [facility] 396 [place], [place] 0[address] Assigned Surgical Provider05/09/25 Nany Solitario NP [address] [address] Assigned Heart and Vascular Provider08/09/25documented as of this encounter
--- OUTSIDE RECORDS SUMMARY | 2025-10-26 15:15 | XMS_ITS | Encounter Summary ---
Author Organization [place] Address [address] [place] [address]. [place] [address] Care Team Providers Care Freight Associate Name Role Phone Raphael Solo MD Unavailable [phone] Isac Mayorga MD Unavailable [phone] Henry Motta MD Unavailable [phone] Tania Arevalo MD Unavailable +[phone] Paolo Ferris MD Unavailable Rachid Han MD Unavailable [phone] MD Unavailable [phone] Aleks Phillips MD Unavailable + [phone] Aliyah Rust APRN PROGRAM AIDE Unavailable [phone] Issac Graham MD Unavailable Unavailable Ana Maria Hwang MD Unavailable [phone] Marcial Astudillo MD Unavailable [phone] Ekaterina Reardon MD Unavailable [phone] Raphael Teresa MD Unavailable [phone] Smooth Hussein MD Unavailable Unavailable La Lopez MD Unavailable [phone] Issac Graham MD Unavailable Unavailable Natalie Vasques MD Unavailable + Daniel Contreras MD, Willie Unavailable + [phone] Hussein Roth RN Unavailable Unavailable LieLisa ziegler PA-C Unavailable Un available Liegl, Lisa Angela PA-C Unavailable Un available Yamila Alas OD Unavailable + [phone] Robyn Walter HAIR BOILER OPERATOR Unavailable [phone] Vonnie Sweeney MD Unavailable [phone] Yamila Alas OD Unavailable + [phone] Leonidas Razo Unavailable Unavailable Shaggy Cintron MD Unavailable Delonte Moody MD Unavailable [phone] Lucas Veliz MD Unavailable + [phone] Dayron Sanchez AuD Unavailable +[phone] Ty Grewal MD Unavailable [phone] Otilia Rendon RP Unavailable Unavailable Otilia Rendon [facility] Unavailable Unavailable Kiana Dennis Primary Care Provider [phone] Henry Motta MD Unavailable [phone] Lucas Veliz MD Unavailable + [phone] Nany Solitario NP Unavailable +[phone] Encounter Details DateTypeDepartmentCare Team (Latest Contact Info)Nnszsnpmpkb87/10/2025 3:15 PM [facility] [place] [address] [place] [address] NYHA class 3 heart failure with preserved ejection fraction (H) Social History Tobacco UseTypesPacks/DayYears UsedDateSmoking Tobacco: FormerCigarettes0.151 Started: 11/17/1974Smokeless Tobacco: Never Comments:1-2 cigarettes a da y Alcohol UseStandard Drinks/WeekCommentsNot Currently0 (1 standard drink = 0.6 oz pure alcohol)Holidays, 1 glass on new years.Social Connection and Isolation PanelAnswerDate RecordedFrequency of Communication with Friends and FamilyTwice a week12/13/2019Frequency of Social Gatherings with Friends and FamilyPatient plrnykhg33/27/2020Attends Baptist ServicesPatient /27/2020Active Member of Clubs or IoyrldngqgxivYy52/27/2020Attends Club or Organization MeetingsPatient hewfqjgm87/27/2020Marital StatusLiving with mxllpqa7412/13/2019 AUDIT-CAnswerDate RecordedQ1: How often do you have a drink containing alcohol? Never12/13/2019Q2: How many drinks containing alcohol do you have on a typical day when you are drinking?Patient /27/2020Q3: How often do you have six or more drinks on one occasion?Patient aogzzgjn98/27/2020PHQ-2AnswerDate RecordedPHQ-2 Vxuno760[facility] [place] of Occupational Health - Occupational Stress QuestionnaireAnswerDate RecordedFeeling of StressOnly a udaxua4212/13/2019Exercise Vital SignAnswerDate RecordedDays of Exercise per Week0 [...] in an abandoned building, in an overnight fpc, or couch-surfing.)Yes01/14/2025re you worried about losing your [...] have received?Associate degree: occupational, technical, or vocational bivlstr0212/13/2019CommentsNoSex and Gender InformationValue Date RecordedSex Assigned at BirthNot on fileLegal AbvObuynz69/04/2012 3:32 AM CSTGender IdentityNot on fileSexual OrientationNot on filedocumented as of this encounter Plan of Treatment DateTypeDepartmentCare Team (Latest Contact Info)Fzlvglqobbi64/22/2025 2:00 PM CSTOffice Visit [facility] [address] [place] [phone] Nany Solitario NP [address] [place] [address] [id number] 12/27/2025 11:00 AM CSTOffice Visit [facility] [place] [address] [place] [address] Nany Solitario NP [address] [place] [address] [place] [address] [address] [place] [address] 04/28/2026 11:00 AM CDTOffice Visit [facility] [address] [address] Henry Motta MD [address] [place] [address] [address] [place], [place] [address] documented as of this encounter Procedures Procedure NamePriorityDate/TimeAssociated DiagnosisCommentsNT-PROBNPRoutine 10/26/2025 9:18 AM COMMUNICATIONS FIELD TECHNICIAN NYHA class 3 heart failure with preserved ejection fraction (H) BASIC METABOLIC LYVNBQxfbnxf82/10/2025 9:18 AM COMMUNICATIONS FIELD TECHNICIAN NYHA class 3 heart failure with preserved ejection fraction (H) documented in this encounter Results * NT-proBNP (10/26/2025 9:18 AM COMMUNICATIONS FIELD TECHNICIAN)ComponentValueRef RangeTest MethodAnalysis TimePerformed AtPathologist SignatureNT-tbjHBD6030 - 353 pg/mL10/26/2025 11:52 AM [facility] LABORATORYComment: Starting on 03/23/2025, [facility] laboratory began flagging abnormal values for plasma NT-proBNP results for adults using age-specific reference ranges instead of clinical cut-points/thresholds (see interpretation comment below for clinical threshold values) as part of a test standardization effort. Pediatric abnormal values were already previously flagged using age-specific reference intervals, which are not currently changing. The test methodology remains unchanged, and previous results performed with this methodology can be interpreted with the updated reference intervals. [facility]'s Pediatric (boys and girls) Reference Ranges in pg/mL * 0 up to 3 days: ??0 - 83475 3 days up to 1 month: ??0 - 6500 1 month up to 1 year: ??0 - 1000 2 up to 6 years: ??0 - ??330 6 up to 18 years: ??0 - 240 Male Reference Ranges in pg/mL 18-44 years: ??0 - 93 45-54 years: ??0 - 138 55-64 years: ??0 - 177 65-74 years: ??0 - 229 75 years or older: ??0 - 852 Female Reference Ranges in pg/mL 8-44 years: ??0 - 178 45-54 years: ??0 - 192 55-64 years: ??0 - 226 65-74 years: ??0 - 353 75 years or older: ??0 - 624 Reference ranges in adults reflect 95th percentiles for NT-pro-BNP levels in patients without congestive heart failure (CHF). Knowledge of each individual patient's NT-proBNP range may be more usefulthan using similar cut-points for every patient. For adult chronic CHF patients according to [place] Heart Association (NYHA) Functional Class, themean NT-proBNP concentration is as following (5th and 95th percentile values respectively displayedin parentheses): Class I: 1016 pg/mL (33-3410) Class II: 1666 pg/mL (103-6567) Class III: 3029 pg/mL (126-94925) Class IV: 3465 pg/mL (148-62536) Clinical thresholds for acute (emergency department) settings: < 300 pg/mL effectively rules out acute decompensated heart failure (ADHF), with 99% negative predictive value. The following values may rule in potential acute decompensated heart failure (ADHF) in individuals (with a PPV of 50-60%): Under 50 years: >450 pg/mL Between 50-75 years: >900 pg/mL Over 75 years: >1800 pg/mL Among patients with dyspnea, NT-proBNP is highly sensitive for detection of acute CHF. ??Elevationsin NT-proBNP levels may be observed in states other than left ventricular congestive failure including: acute coronary syndromes, right heart strain/failure (including pulmonary embolism and cor pulmonale), critical illness, and renal failure.?? Falsely low NT-proBNP in CHF patients may be observedin increased body mass index. * References: (1) Colt Mckeon et al.?? Pediatr Cardiol 30:3-8, 2008. Specimen (Source)Anatomical Location / LateralityCollection Method / Volume Collection TimeReceived TimeBloodSTRUCTURE OF RIGHT UPPER LIMB / Unknown Venipuncture / Qatyplx8610/26/2025 9:18 AM CST10/26/2025 9:19 AM COMMUNICATIONS FIELD TECHNICIAN Narrative Authorizing ProviderResult TypeResult StatusElizabeth Altaf NPLAB - BLOOD ORDERABLESFinal ResultPerforming OrganizationAddressCity/State/ZIP CodePhone Number [facility] [address] floor, [address] [place] [address], [facility] [phone] * (ABNORMAL) Basic metabolic panel (10/26/2025 9:18 AM COMMUNICATIONS FIELD TECHNICIAN)ComponentValueRef RangeTest MethodAnalysis TimePerformed AtPathologist PrncckcblAxsmxs355228 - 145 mmol/L112/27/2024 11:52 AM CST[facility] LABORATORYPotassium4.53.4 - 5.3 mmol/L 10/26/2025 11:52 AM CSTSH UTUIFCTWIJGobqtcbr02(L)98 - 107 mmol/L112/27/2024 11:52 AM CST[facility] LABORATORYCarbon Dioxide (CO2)33(H)22 - 29 mmol/L112/27/2024 11:52 AM [facility]ST[facility] LABORATORYAnion Yjg442 - 15 mmol/L112/27/2024 11:52 AM [facility]ST[facility] LABORATORYUrea Pdsgrkfi42.98.0 - 23.0 mg/dL10/26/2025 11:52 AM [facility] LABORATORYCreatinine1.01(H)0.51 - 0.95 mg/dL10/26/2025 11:52 AM [facility]ST[facility] LABORATORYGFR Sggvqkmk72(L)>60 mL/min/1.71n07510/26/2025 11:52 AM [facility] LABORATORYComment:eGFR calculated using 2020 CKD-EPI equation.Calcium9.88.8 - 10.4 mg/dL10/26/2025 11:52 AM [facility] ZXTSYFSIAYKwgjwak832(H)70 - 99 mg/dL 10/26/2025 11:52 AM [facility] LABORATORYSpecimen (Source)Anatomical Location / LateralityCollection Method / VolumeCollection TimeReceived TimeBloodSTRUCTURE OF RIGHT UPPER LIMB / UnknownVenipuncture / Suljsjk4510/26/2025 9:18 AM COMMUNICATIONS FIELD TECHNICIAN 10/26/2025 9:19 AM COMMUNICATIONS FIELD TECHNICIAN Narrative Authorizing ProviderResult TypeResult StatusElizabeth Altaf NPLAB - BLOOD ORDERABLESFinal ResultPerforming OrganizationAddressCity/State/ZIP CodePhone Number [facility] [address] 1[address] floor, [address] [place] [address], [facility] [phone] documented in this encounter Visit Diagnoses Diagnosis NYHA class 3 heart failure with preserved ejection fraction (H) documented in this encounter Additional Health Concerns InfectionOnset DateLast IndicatedResolved ZytiDEOP75/02/0533104Assessment Noted TimePHQ-9 Depression Total Score: 111 3:03 PM CSTdocumented as of this encounter Care Teams Team MemberRelationshipSpecialtyStart DateEnd Date Kiana Dennis [address] [place] [phone] PCP - GeneralFamily Practice02/25/25 Raphael Solo MD [address] [place], [place] [address] Orthopedics03/06/15 Isac Mayorga MD 420 [facility] [address] [place], [place] [address] MDCardiology03/07/15 Henry Motta MD 420 [facility] [address] [place], [place] [address] MDInternal Medicine04/17/15 Tania Arevalo MD [address] [place] [address] MDOphthalmology06/16/15 Paolo Ferris MD 420 [facility] [address] [place] [address] Referring PhysicianInternal Medicine06/28/15 Rachid Han MD 420 [facility] [address] [place], [place] [address] MDOphthalmology07/05/15 Ave Del Toro MD 515 [facility] [address] [place] [address] MDRheumatology07/20/15 Aleks Phillips MD [address] [place] [address] ZXUunaquovdvzhv24/17/15 Aliyah Rust, ENGINEERING ILLUSTRATOR PROGRAM AIDE [address] [place], [place] [address] Nurse PractitionerClinical Nurse Specialist03/19/16 Issac Graham MD [address] [place] [address] MDNeurolog11/25/16 Ana Maria Hwang MD 420 [facility] [address] [place] [address] MDInternal Utgvfaob08/26/17 Marcial Astudillo MD [facility] 516 [facility] [address] [place] [address] ResidentStudent in organized health care education/training hociacp75/6/17 Ekaterina Reardon MD [address] [place] [address] Neurology02/03/18 Raphael Teresa MD [address] [place], [place] [address]200 [place] [address] Orthopaedic Surgery03/12/18 Smooth Hussein MD [facility] [facility] [address] [place] [address] MDAnesthesiology04/27/18 La Lopez MD [address] [place] [address] MDNeurology1 Issac Graham MD [address] [place] [address] Referring PhysicianNeurology1 Natalie Vasques MD [address] [place] [address] Assigned PCP02/25/21 Mat Sanchez Jr., MD [address] [place], [place] [address] ResidentStudent in organized health care education/training acqondt52/25/21 Hussein Roth, RIKI Registered Nurse02/15/22 Lisa Tolbert PA-C Physician AssistantCardiovascular Disease04/02/22 Lisa Tolbert PA-C Physician AssistantCardiovascular Disease04/02/22 Yamila Alas OD [address] [place] [address] [address] [place] [address] Optometry06/26/22 Robyn Walter, HAIR BOILER OPERATOR [address] [address] Nurse PractitionerCardiovascular Disease08/09/22 Vonnie Sweeney MD [address] [place] [address] MDAnesthesiology12/18/22 Yamila Alas OD [address] [place] [address] [facility] [address] [place] [address] Optometry05/12/23 Reisdorf, Leonidas Night RT06/27/23 Shaggy Cintron MD [address] [place] [address] Assigned Neuroscience Ywzbetfc22/7/23 Delonte [place] MD [address] [place], [place] [id number] NjbggqztvTfkhsrolxofba24/6/23 Lucas Veliz MD 420 [facility] [address] [place] [address] MDOtolaryngology02/04/24 Dayron Sanchez, [place] [address] [place] [address] Audiology02/04/24 Ty Grewal MD [address] [place], [place] [address] [facility]04/29/24 Otilia Rendon RPH PharmacistPharmacist08/02/24 Otilia Rendon RPH [facility] Dwvfkvdcib68/8/24 Henry Motta MD [address] [place] [address] [facility] [address] [place], [place] [address] MDCritical Care04/26/25 Lucas Veliz MD 420 [facility] [address] [place] [address] Assigned Surgical Provider05/09/25 Nany Solitario NP [address] [place] [address] Assigned Heart and Vascular Provider08/09/25documented as of this encounter
--- OUTSIDE RECORDS SUMMARY | 2025-10-28 11:00 | XMS_ITS | Encounter Summary ---
Author Organization [facility] Address [address] [place] [address]. [place] [address] Care Team Providers Care Inspector Final Assembly Electrical Name Role Phone Raphael Solo MD Unavailable [phone] Isac Mayorga MD Unavailable [phone] Henry Motta MD Unavailable [phone] Tania Arevalo MD Unavailable [phone] Paolo Ferris MD Unavailable Jone Ward MD Unavailable [phone] MD Unavailable [phone] Aleks Phillips MD Unavailable [phone] Aliyah Rust APRN SWITCH INSPECTOR Unavailable [phone] Issac Graham MD Unavailable Unavailable Ana Maria Hwang MD Unavailable [phone] Marcial Astudillo MD Unavailable [phone] Ekaterina Reardon MD Unavailable [phone] Raphael Teresa MD Unavailable [phone] Smooth Hussein MD Unavailable Unavailable La Lopez MD Unavailable Issac Graham MD Unavailable Unavailable Natalie Vasques MD Unavailable + Daniel Contreras MD, Willie Unavailable +[phone] Hussein Roth RN Unavailable Unavailable Liekarlie, Lisa Angela PA-C Unavailable Un available Liegl, Lisa Angela PA-C Unavailable Un available Yamila Alas OD Unavailable + [phone] Robyn Walter PHLEBOTOMIST ASSOCIATE Unavailable [phone] Vonnie Sweeney MD Unavailable [phone] Yamila Alas OD Unavailable + [phone] Leonidas Razo Unavailable Unavailable Shaggy Cintron MD Unavailable Delonte Moody MD Unavailable [phone] Lucas Veliz MD Unavailable [phone] Dayron Sanchez Unavailable [phone] Ty Grewal MD Unavailable [phone] Otilia Rendon [facility] Unavailable Unavailable Otilia Rendon [facility] Unavailable Unavailable Kiana Dennis Primary Care Provider [phone] Henry Motta MD Unavailable [phone] Lucas Veliz MD Unavailable [phone] Nany Solitario NP Unavailable [phone] Reason for Visit * ReasonCommentsRECHECKReturn Pulmonary Encounter Details DateTypeDepartmentCare Team (Latest Contact Info)Lkncwwrzhec68/12/2025 11:00 AM CSTOffice Visit [facility] [id number] [place] [address] Henry Motta MD [address] [place] [id number] Chronic bronchitis, unspecified chronic bronchitis type (H) (Primary Dx); Other emphysema (H); COPD exacerbation (H); Acute on chronic respiratory failure with hypercapnia (H); Moderate persistent asthma without complication; H/O nicotine dependence; Paralyzed hemidiaphragm; Severe persistent asthma without complication (H); Rheumatoid arthritis, involving unspecified site, unspecified whether rheumatoid factor present (H) Social History Tobacco UseTypesPacks/DayYears UsedDateSmoking Tobacco: FormerCigarettes0.151 Started: 11/17/1974Smokeless Tobacco: Never Comments:1-2 cigarettes a da y Alcohol UseStandard Drinks/WeekCommentsNot Currently0 (1 standard drink = 0.6 oz pure alcohol)Holidays, 1 glass on new years.Social Connection and Isolation PanelAnswerDate RecordedFrequency of Communication with Friends and FamilyTwice a week12/13/2019Frequency of Social Gatherings with Friends and FamilyPatient lezskzrp60/27/2020Attends Baptism ServicesPatient iidjoelp44/27/2020Active Member of Clubs or BtwzdzeunxnglJq60/27/2020Attends Club or Organization MeetingsPatient doruayzb64/27/2020Marital StatusLiving with ycxkprd6112/13/2019 AUDIT-CAnswerDate RecordedQ1: How often do you have a drink containing alcohol? Never12/13/2019Q2: How many drinks containing alcohol do you have on a typical day when you are drinking?Patient znugqjvy38/27/2020Q3: How often do you have six or more drinks on one occasion?Patient olpwhxkl44/27/2020PHQ-2AnswerDate RecordedPHQ-2 [facility]mmrs371[facility] [place] [facility] - Occupational Stress QuestionnaireAnswerDate RecordedFeeling of StressOnly a pfpkmo8812/13/2019Exercise Vital SignAnswerDate RecordedDays of Exercise per Week0 [...] in an abandoned building, in an overnight jail, or couch-surfing.)Yes01/14/2025re you worried about losing your [...] have received?Associate degree: occupational, technical, or vocational iiakpjc1212/13/2019CommentsNoSex and Gender InformationValue Date RecordedSex Assigned at BirthNot on fileLegal DtcTefrsg97/04/2012 3:32 AM CSTGender IdentityNot on fileSexual OrientationNot on filedocumented as of this encounter Last Filed Vital Signs Vital SignReadingTime TakenCommentsBlood Gezmteui741/7310/28/2025 11:16 AM CHEMICAL PROJECT ENGINEER Firbf791910/28/2025 11:16 AM CSTTemperature--Respiratory Rate--Oxygen Saturation 86%10/28/2025 11:16 AM CSTRAInhaled Oxygen Concentration--Bqtapo35.1 kg (214 lb) 10/28/2025 11:16 AM GZTMpibhg869.5 cm (5' 2)10/28/2025 11:16 AM CSTBody Mass Index39.14112/29/2024 11:16 AM CSTdocumented in this encounter Patient Instructions * Patient Instructions* Hnery Motta MD - 10/28/2025 11:00 AM CHEMICAL PROJECT ENGINEER COPD / Asthma Overlap Continue Trelegy each AM plus singulair and daily azithromycin 500 Use nebulizer for shortness of breath - can use up to every 4 hours if needed. Refilled Albuterol inhaler - use 2 puffs up to every 3 hours as a rescue inhaler for shortness ofbreath. Check need for oxygen while awake, sitting up and moving around in the wheelchair. I will check with you with results of oxygen testing -will contact her brother in law Dexter [phone] with results (if I'm not still here) For problems or issues, please call our lung nurses [phone] Oxygen saturation should be > 85% almost all the time and above 90% the great majority of the time. If staying low then Oxygen should be restarted. Return to clinic in 6 months. ICAL PROJECT ENGINEER ICAL PROJECT ENGINEER documented in this encounter Progress Notes * Henry Motta MD - 10/28/2025 11:00 AM CST Reason for Visit Gemini Wang is a 70 year old year old female who is being seen for Asthma (possible COPD overlap). Pulmonary HPI: The patient was seen and examined by Henry Motta MD I had the pleasure of seeing Ms. Wang today at the [facility] in follow-up for her Asthma COPD overlap syndrome. . I last saw her in clinic on 05/14/2024. 4 hospitalizations since then, includin09/05/24 [facility] with Opioid overdose and GGO on Chest CT 10/14/24 [facility] - Paroxysmal atrial fibrillation 01/06/25 - 01/18/25 [facility] - Acute on chronic resp failure ? 07/2025 [facility] - records not available. COPD/Asthma Overlap - Chronic Bronchitis & Emphysema - Emphysema managed with inhaled therapies and supplemental oxygen as needed. - COPD exacerbations requiring multiple hospitalizations in 2024. - Reported chronically low oxygen saturations typically ???in the 80s?? since oxygen was discontinued at a transitional care unit; oxygen equipment subsequently removed from assisted living facility - Hospitalized at [facility] at the beginning of the year for pneumonia (November 2024; exact date not recalled); another [facility] hospitalization ? January 2025 following a fall, with pneumonia identified during evaluation - Transitioned from intermediate (ambulatory) to requiring wheelchair use more often around January 2025; moved to transitional care, then to assisted living due to need for wnduu-fbz-ijlrm care - Two hospitalizations at [facility] after the [facility] admissions (reported as June and July 2025) - During the second [facility] hospitalization, found unresponsive with oxygen saturation reported at 40%; suspected airway occlusion from sleeping in wheelchair recliner position - Pressed pendant at facility requesting help for breathing prior to hospitalization; requested rescue inhaler but was told by staff it had been cancelled; stated ???you wouldn???t have cancelled it?? - Reports current breathing is ???OK?? between hospitalizations - Able to wheel up and down the hallway for approximately 5-10 minutes - Denies significant ankle swelling; notes prior diuretic use reduced fluid ???quite a bit?? - Daily mask use triggers mild congestion sensation - Quit smoking after the January 2025 incident; expresses relief at cessation - Medication history as understood by her: using Trelegy daily with mouth rinse; on Prilosec for GERD; on Singulair nightly; on daily azithromycin; has nebulizers and uses them once or twice per week; does not currently have handheld albuterol rescue inhaler available - Cardiovascular history acknowledged by her: episodes of atrial fibrillation with fast heart rate occasionally; follows with cardiology (seen in [place] in July 2025); does not recall new cardiacmedicines since then; believes on apixaban (Eliquis) - Prior cardiovascular testing as recalled in care timeline: negative stress test; CT showed mild calcification - Echocardiogram performed at [facility] on June 21, 2025: bicuspid aortic valve with mild stenosis and dilated aorta; preserved left ventricular function (as relayed to her) - Chest X-rays in July 2025 during hospitalization reportedly noted acute heart failure and elevated right hemidiaphragm (known from before) - CT scan in January 06, 2025 did not show pulmonary embolism (as relayed) - Arrhythmia monitoring revealed episodes of fast heart rate (as relayed) - Hospitalization January 06, 2025 to January 18, 2025 at [facility] for acute on chronic respiratory failure with hypoxia and hypercapnia associated with RSV infection (as relayed) - Cognitive concerns: transitional care unit assessment labeled ???borderline memory care required?? ; reports feeling ???probably a little kind of lost?? ; worries about memory and hand tremoring - Reports tremor observed by stock sorter; inquires about neurology evaluation for tremor and memory concerns Current Facility-Administered Medications[1] Allergies[2] Past Medical History: Diagnosis Date Acute hypercapnic respiratory failure (H) 12/03/2019 Anxiety Aortic valve disorder Arrhythmia Bicuspid aortic valve Bleeding disorder BPPV (benign paroxysmal positional vertigo) Chest pain Chronic kidney disease kidney failure and insufficiency Chronic low back pain 02/06/2012 Chronic neck pain 07/02/2014 Chronic osteoarthritis Complication of anesthesia Congestive heart failure (H) Coronary artery disease Depression Dilated aortic root Epilepsy (H) childhood last seizure 12/2009 Fibromyalgia Functional weakness 01/09/2021 Gastro-oesophageal reflux disease Gastroparesis 06/30/2011 History of basal cell carcinoma History of blood transfusion History of colonic polyps 12/08/2015 Adenomatous and large hyperplastic. Regular colonoscopy needed. Large polyp 06/2015, next colonoscopy 12/18/2015. 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 07/07/2017 Learning disability Lung disease Mental disorder Moderate persistent asthma without complication 07/25/2016 Osteoarthritis Osteoporosis without current pathological fracture, unspecified osteoporosis type 05/16/2018 Paroxysmal atrial fibrillation (H) 10/17/2016 PTSD (post-traumatic stress disorder) 04/09/2016 RA (rheumatoid arthritis) (H) Reduced vision S/P spinal surgery 06/21/2019 s/p TLIF-SPO L4-5,L5-S1; PISF L4-pelvis (08/07/18); s/p LLIF-PPS L3-4 (11/23/2010) 08/07/2018 Secondary adrenal insufficiency 01/02/2017 Seizures (H) Shortness of breath Sleep apnea apneic period with 01/06/17 MRI Surgical complication Vitamin D deficiency Past Surgical History: Procedure Laterality Date ANESTHESIA OUT OF OR MRI N/A 12/24/2016 Procedure: ANESTHESIA OUT OF OR MRI; Surgeon: GENERIC ANESTHESIA PROVIDER; [facility]: [facility] ANESTHESIA OUT OF OR MRI N/A 08/20/2017 Procedure: ANESTHESIA OUT OF OR MRI; Anesthesia Out of OR MRI of Lumbar Spine ; Surgeon: GENERIC ANESTHESIA PROVIDER; Location: [facility] ANESTHESIA OUT OF OR MRI N/A 08/07/2018 Procedure: ANESTHESIA OUT OF OR MRI; Out of OR MRI; Surgeon: GENERIC ANESTHESIA PROVIDER; Location:[facility] ANESTHESIA OUT OF OR MRI N/A 07/04/2020 Procedure: ANESTHESIA OUT OF OR Magnetic Resonance Imaging of the brain with and without contrast @0900; Surgeon: GENERIC ANESTHESIA PROVIDER; Location: [facility] OR Ant Spinal Diskect Osteophytect Cer Interspace Microdiscect ARTHROSCOPY KNEE right ARTHROSCOPY KNEE Right BIOPSY OF SKIN LESION COLONOSCOPY COLONOSCOPY 10/27/2009 normal polyps removed in 04/2009 benign DENTAL SURGERY DENTAL SURGERY tooth extraction DESTRUCTION OF PARAVERTEBRAL FACET LUMBAR / SACRAL SINGLE Right 07/03/2017 Procedure: DESTRUCTION OF PARAVERTEBRAL FACET LUMBAR / SACRAL SINGLE; Right Lumbar Radio-Frequency Ablation; Surgeon: Smooth Hussein MD; [facility] DISCECTOMY, FUSION CERVICAL ANTERIOR ONE LEVEL, COMBINED N/A 06/24/2016 Procedure: COMBINED DISCECTOMY, FUSION CERVICAL ANTERIOR ONE LEVEL; Surgeon: Raphael Teresa MD; Location: [facility] ENDOSCOPIC DACRYOCYSTORHINOSTOMY 08/23/2011 Procedure:ENDOSCOPIC DACRYOCYSTORHINOSTOMY; Left Endoscopic Dacryocystorhinostomy with Stent ; Surgeon:JONE WARD; Location:[facility] ESOPHAGOSCOPY, GASTROSCOPY, DUODENOSCOPY (EGD), COMBINED N/A 07/10/2015 Procedure: COMBINED ESOPHAGOSCOPY, GASTROSCOPY, DUODENOSCOPY (EGD), BIOPSY SINGLE OR MULTIPLE; Surgeon: Justice Mena MD; Location: [facility] EYE SURGERY EYE SURGERY FRACTURE SURGERY right open ankle FUSION LUMBAR POSTERIOR ARTIFICIAL DISK WITH SYSTEM 11/23/10 L3-4 interbody fusion with PEEK cage, pedical screw fixation GRAFT BONE FROM ILIAC CREST Right 06/24/2016 Procedure: GRAFT BONE FROM ILIAC CREST; Surgeon: Raphael Teresa MD; Location: [facility] OR HYSTERECTOMY tumors ediomyoma born with it INJECT EPIDURAL LUMBAR / SACRAL SINGLE N/A 08/12/2017 Procedure: INJECT EPIDURAL LUMBAR / SACRAL SINGLE; Caudal Epidural Steroid Injection with RACX catheter; Surgeon: Smooth Hussein MD; [facility] INJECT PARAVERTEBRAL FACET JOINT LUMBAR / SACRAL FIRST Right 10/31/2016 Procedure: INJECT PARAVERTEBRAL FACET JOINT LUMBAR / SACRAL FIRST; Surgeon: Marcelino Fuentes DO; [facility] INJECT PARAVERTEBRAL FACET JOINT LUMBAR / SACRAL FIRST Right 11/14/2016 Procedure: INJECT PARAVERTEBRAL FACET JOINT LUMBAR / SACRAL FIRST; Surgeon: Marcelino Fuentes DO; [facility] IR PULMONARY EMBOLIZATION 06/25/2001 KNEE SURGERY Laparoscopic Aspiration Left Ovary Cyst LAPAROSCOPIC CHOLECYSTECTOMY LAPAROSCOPIC CYSTECTOMY OVARIAN (BENIGN) left LAPAROSCOPIC TUBAL LIGATION NECK SURGERY OPTICAL TRACKING SYSTEM FUSION POSTERIOR SPINE LUMBAR N/A 06/28/2019 Procedure: Revision Posterior Instrumentation Thoracic 12- Pelvis, Posterior Spinal Fusion [id number] 2; Transforaminal Interbody Fusion Lumbar 1-2,; Cement Augmentation of Screws; Surgeon: Raphael Teresa MD; Location: [facility] OR OPTICAL TRACKING SYSTEM FUSION SPINE POSTERIOR LUMBAR THREE+ LEVELS N/A 08/07/2018 Procedure: OPTICAL TRACKING SYSTEM FUSION SPINE POSTERIOR LUMBAR THREE+ LEVELS; Transforaminal Lumbar Interbody Fusion-Waters Higuera Osteotomy Lumbar 4-5, Lumbar 5-Sacral 1; Posterior Fixation Lumbar 4-Pelvis; use of Vivigen allograft posterior fusion lumbar 3 to sacral 1; Surgeon: Raphael Teresa MD; Location: [facility] OR OPTICAL TRACKING SYSTEM FUSION SPINE POSTERIOR LUMBAR THREE+ LEVELS N/A 06/21/2019 Procedure: Pedicle Subtraction Osteotomy Lumbar 4, Transforaminal Lumbar Interbody Fusion Lumbar 2-3; Revision Posterior Instrumented Spinal Fusion Lumbar 2-Pelvis, Cement Augmentation Of Screws, UseOf Infuse BMP (Medium); Surgeon: Raphael Teresa MD; Location: [facility] OR PHACOEMULSIFICATION CLEAR CORNEA WITH STANDARD INTRAOCULAR LENS IMPLANT Left 06/17/2024 Procedure: LEFT EYE PHACOEMULSIFICATION, CATARACT, WITH INTRAOCULAR LENS IMPLANT; Surgeon: Delonte Moody MD; Location: [facility] OR PHACOEMULSIFICATION CLEAR CORNEA WITH TORIC INTRAOCULAR LENS IMPLANT Right 06/03/2024 Procedure: RIGHT EYE PHACOEMULSIFICATION, CATARACT, WITH INTRAOCULAR LENS IMPLANT, STANDARD LENS; Surgeon: Delonte Moody MD; Location: [facility] OR AR ARTHRODESIS ANT INTERBODY MIN DISCECTOMY,LUMBAR Description: Lumbar Vertebral Fusion; Recorded: 06/30/2013; AR SPINE SURGERY PROCEDURE UNLISTED RECTAL SURGERY REPAIR RETRACTION LID BILATERAL Bilateral 01/04/2015 Procedure: REPAIR RETRACTION LID BILATERAL; Surgeon: Jone Ward MD; Location: [facility] SHOULDER SURGERY 03/14/10 left labral repair, acromioplasty, distal clavicle excision SHOULDER SURGERY 06/07/2009 right glenohum debridement, bicep tenotomy, acromioplasty, distal clavicle excision [facility] PELVIS/HIP JOINT SURGERY UNLISTED [facility] SHOULDER SURG PROC UNLISTED [facility] STOMACH SURGERY PROCEDURE UNLISTED Social History Socioeconomic History Marital status: Spouse name: Not on file Number of children: 3 Years of education: Not on file Highest education level: Associate degree: occupational, technical, or vocational program Occupational History Not on file Tobacco Use Smoking status: Former Current packs/day: 0.10 Average packs/day: 0.1 packs/day for 50.9 years (5.1 ttl pk-yrs) Types: Cigarettes Start date: 11/17/1974 Smokeless tobacco: Never Tobacco comments: 1-2 cigarettes a day Vaping Use Vaping status: Never Used Substance and Sexual Activity Alcohol use: Not Currently Comment: Holidays, 1 glass on new years. Drug use: No Sexual activity: Not Currently Partners: Male control/protection: Female Surgical Comment: hysterectomy Other Topics Concern Parent/sibling w/ CABG, FL or angioplasty before 65F 55M? 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 Lives with boyfriend, Tej. Social Drivers of Health Financial Resource Strain: Low Risk (01/14/2025) Financial Resource Strain Within the past 12 months, have you or your family members you live with been unable to get utilities (heat, electricity) when it was really needed?: No Food Insecurity: Low Risk (01/14/2025) Food Insecurity Within the past 12 months, did you worry that your food would run out before you got money to buy more?: No Within the past 12 months, did the food you bought just not last and you didn???t have money to getmore?: No Transportation Needs: Low Risk (01/14/2025) Transportation Needs Within the past 12 months, has lack of transportation kept you from medical appointments, getting your medicines, non-medical meetings or appointments, work, or from getting things that you need?: No Physical Activity: Inactive (12/13/2019) Exercise Vital Sign Days of Exercise per Week: 0 days Minutes of Exercise per Session: 0 min Stress: No Stress Concern Present (12/13/2019) [place] [facility]ational Health - Occupational Stress Questionnaire Feeling of Stress : Only a little Social Connections: Socially Integrated (11/11/2023) Received from [employer] [facility] Social Connections Do you often feel lonely or isolated from those around you?: 0 Interpersonal Safety: Low Risk (01/12/2025) Interpersonal Safety Do you feel physically and emotionally safe where you currently live?: Yes Within the past 12 months, have you been hit, slapped, kicked or otherwise physically hurt by someone?: No Within the past 12 months, have you been humiliated or emotionally abused in other ways by your partner or ex-partner?: No Housing Stability: Low Risk (01/14/2025) Housing Stability Do you have housing? : Yes Are you worried about losing your housing?: No Recent Concern: Housing Stability - High Risk (10/16/2024) Housing Stability Do you have housing? : Yes Are you worried about losing your housing?: Yes ROS Pulmonary: A complete ROS was otherwise negative except as noted in the HPI. Exam: There were no vitals taken for this visit. Resting O2 Sat initially in wheelchair 86% Here with brother in law (Dexter) GENERAL APPEARANCE: Well developed, well nourished, alert, and in no apparent distress. No tachypnea, stridor, cough, or audible wheeze. EYES: PERRL, EOMI HENT: Nasal mucosa with no edema and no hyperemia. No nasal polyps. No sinus tenderness. MOUTH: Oral mucosa is moist, without any lesions, no tonsillar enlargement, no oropharyngeal exudate. NECK: supple, no masses, no thyromegaly. LYMPHATICS: No significant axillary, cervical, or supraclavicular nodes. RESP: normal inspection, palpation, percussion, with good air flow throughout. No crackles. No rhonchi. No wheezes. CV: Normal S1, S2, regular rhythm, normal rate. No murmur. No rub. No gallop. No LE edema. ABDOMEN: deferred MS: extremities normal. No clubbing. No cyanosis. SKIN: no rash on limited exam NEURO: Mentation intact, speech normal, normal strength and tone, normal gait and stance PSYCH: mentation appears normal. and affect normal/bright LEs are wrapped and appear to have some edema - but not directly visualized. Results: Recent Results (from the past week) Basic metabolic panel Collection Time: 10/26/25 9:18 AM Result Value Ref Range Sodium 140 135 - 145 mmol/L Potassium 4.5 3.4 - 5.3 mmol/L Chloride 97 (L) 98 - 107 mmol/L Carbon Dioxide (CO2) 33 (H) 22 - 29 mmol/L Anion Gap 10 7 - 15 mmol/L Urea Nitrogen 11.9 8.0 - 23.0 mg/dL Creatinine 1.01 (H) 0.51 - 0.95 mg/dL GFR Estimate 60 (L) >60 mL/min/1.73m2 Calcium 9.8 8.8 - 10.4 mg/dL Glucose 112 (H) 70 - 99 mg/dL NT-proBNP Collection Time: 10/26/25 9:18 AM Result Value Ref Range NT-proBNP 307 0 - 353 pg/mL NM Lexiscan stress test (nuc card) Collection Time: 10/26/25 11:57 AM Result Value Ref Range Target HR 152 Baseline Systolic BP 110 Baseline Diastolic BP 74 Last Stress Systolic BP 110 Last Stress Diastolic BP 66 Baseline HR 66 bpm Max HR 80 Max Predicted HR 53 % Rate Pressure Product 8,800.0 Left Ventricular EF 69 % ZIO PATCH MAIL OUT Collection Time: 10/26/25 4:37 PM Result Value Ref Range Zio Prelim Results Patient had a min HR of 46 bpm, max HR of 154 bpm, and avg HR of 62 bpm. Predominant underlying rhythm was Sinus Rhythm. First Degree AV Block was present. 25 Supraventricular Tachycardia runs occurred, the run with the fastest interval lasting 8 beats with a max rate of 145 bpm, the longest lasting 21.8 secs with an avg rate of 95 bpm. Some episodes of Supraventricular Tachycardia may be possible Atrial Tachycardia with variable block. Atrial Fibrillation occurred (15% burden), ranging from 53-154 bpm (avg of 85 bpm), the longest lasting 1 day 23 hours with an avg rate of 85 bpm. Atrial Fibrillation was present at activation of device. Isolated SVEs were rare (<1.0%), SVE Couplets were rare (<1.0%), and SVE Triplets were rare (<1.0%). Isolated VEs were rare (<1.0%), and no VECouplets or VE Triplets were present. Difficulty discerning atrial activity making definitive diagnosis difficult to ascertain. Chest X rays 08/03 and 08/05/25 (external) - cardiomegaly; mildly elevated R hemidiaphragm, Postop spinal changes. Loose bodies L shoulder PFTs 06/29/25 FEV1/FVC - 1.34/2.62 (64/70% pred) Echo [facility] 06/21/2025 Normal LV size and EF; Mild increase RV cavity with nl function Increase LA pressure Bicuspid AV with mild stenosis and no regurgiatino Mild-mod TR Dilated ascending aorta 4.[address] PAgram 01/06/25 No PE; multifocal subsegmental Periph opacities c/w atelectasis & inflammation Mildly enlarged mediastinal lymph nodes. CT Chest w/ Contrast 04/28/25 Clearance of prior apical lung opacities RUL pulm nodule - rec follow up in 1 year 4.2 cm ascending thoracic aorta NM Lexican 10/28/2025: Negative for inducible myocardial ischemi or infarction Nl LV function - EF 69% Assessment and plan: Asthma / COPD overlap with frequent resp flare-ups Acute on chronic respiratory failure with hypercapnia Chronic bronchitis & emphysema Moderate persistent asthma without complication: - Chronic bronchitis with ongoing need for inhaled therapies and intermittent exacerbations. - Continue current inhaler regimen. Continue Trelegy daily in the morning. Continue Singulair at night. Continue daily azithromycin 500 mg. Use nebulizer for shortness of breath, up to every 4 hours as needed. - Refilled albuterol inhaler, use two puffs up to every 3 hours as a rescue inhaler for shortness of breath. - Monitor need for supplemental oxygen during activity and consider restarting oxygen if saturations remain low. Assess oxygen requirement during activity and consider re-initiation if saturations remain below target. - Follow-up in 6 months. - Monitor for further exacerbations. - Reinforce use of rescue inhaler and nebulizer as needed. - Hold spiriva (previously used) since on Trelegy Cardiac HFpEF class 3 / Paroxysmal Atrial Fibrillation / typical & atypical Chest Pain / Bicuspid AV with mild aortic stenosis Followed by Geo Solitario NP T2 DM On Jardiance H/O nicotine dependence: - Nicotine dependence in remission; cessation achieved after January 2025. - Reinforced smoking cessation and acknowledged benefit for respiratory health. 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 - Monitor respiratory status and oxygen needs. Continue current management. Cognitive concerns and tremor: - Mild cognitive concerns and tremor noted; borderline for memory care per prior assessment. - Advised neurology referral for further evaluation of tremor and cognitive symptoms. I spent a total of 70 minutes dedicated to her care today, 10/28/2025, including review of her pastmedical records, review of past images, reports and PFTs with the patient today and in documentation. 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, [employer] [1] Current Outpatient Medications Medication Sig Dispense Refill acetaminophen (TYLENOL) 325 MG tablet TAKE 1 TABLET BY MOUTH EVERY 8 HOURS NEEDED --MAXIMUM OF 4000MG ACETAMINOPHEN IN 24 HOURS- 90 tablet 11 albuterol (PROAIR HFA/PROVENTIL HFA/VENTOLIN HFA) 108 (90 Base) MCG/ACT inhaler Inhale 2 puffs intothe lungs every 4 hours as needed for shortness of breath / dyspnea or wheezing 18 g 11 albuterol (PROVENTIL) (2.5 MG/3ML) 0.083% neb solution Take 1 vial (2.5 mg) by nebulization every 6hours as needed for shortness of breath, wheezing or cough 90 mL 1 alcohol swab prep pads Use to test blood sugar 2 times daily or as directed. 100 each 11 amiodarone (PACERONE) 200 MG tablet Take 1 tablet (200 mg) by mouth every morning. 90 tablet 3 ammonium lactate (AMLACTIN) 12 % external cream Apply topically 2 times daily 140 g 2 apixaban ANTICOAGULANT (ELIQUIS ANTICOAGULANT) 5 MG tablet Take 1 tablet (5 mg) by mouth 2 times daily. 180 tablet 3 Azithromycin (ZITHROMAX PO) Take 500 mg by mouth daily. B Wclenzm-F-Uifhy Acid TABS Take 1 tablet by mouth every morning. Bioflavonoid Products (CHARLENE-C PO) Take 1,000 mg by mouth 2 times daily blood glucose (NO BRAND SPECIFIED) lancets standard Use to test blood sugar 2 times daily or as directed. 200 each 11 blood glucose (NO BRAND SPECIFIED) test strip Use to test blood sugar 2 times daily or as directed.200 strip 5 blood glucose monitoring (NO BRAND SPECIFIED) meter device kit Use to test blood sugar 2 times daily or as directed. 1 kit 1 calcium carbonate (TUMS) 500 MG chewable tablet Take 1 chew tab by mouth 2 times daily. calcium carbonate (TUMS) 500 MG chewable tablet Take 1 tablet (500 mg) by mouth 4 times daily as needed for heartburn. Calcium Citrate-Vitamin D3 (GNP CALCIUM CITRATE +D3) 315-6.25 MG-MCG TABS Take 1 tablet by mouth 3 times daily. cholecalciferol (VITAMIN D3) 125 mcg (5000 units) capsule Take 125 mcg by mouth daily. cyanocobalamin (VITAMIN B-12) 1000 MCG tablet Take 1,000 mcg by mouth every morning. Dextromethorphan-guaiFENesin (ROBITUSSIN DM PO) Take 10 mLs by mouth. diclofenac (VOLTAREN) 1 % topical gel APPLY 2 GRAMS TOPICALLY FOUR TIMES DAILY. Bilateral hips 200 g 11 divalproex sodium extended-release (DEPAKOTE ER) 500 MG 24 hr tablet Take 4 tablets (2,000 mg) by mouth at bedtime. 360 tablet 3 fluticasone (FLONASE) 50 MCG/ACT nasal spray USE 2 SPRAYS IN EACH NOSTRIL ONCE DAILY 16 g 11 gabapentin (NEURONTIN) 400 MG capsule Take 2 capsules (800 mg) by mouth 3 times daily 180 capsule 11 galcanezumab-gnlm (EMGALITY) 120 MG/ML injection Inject 1 mL (120 mg) subcutaneously every 28 days.1 mL 11 guaiFENesin (ROBITUSSIN) 20 mg/mL liquid Take 200 mg by mouth every 4 hours as needed for cough guaiFENesin-dextromethorphan (ROBITUSSIN DM) 100-10 MG/5ML syrup Take 10 mLs by mouth every 4 hoursas needed for cough. hydrocortisone (CORTEF) 10 MG tablet TAKE 1 TABLET BY MOUTH EVERY MORNING;TAKE 1/2 TABLET (5MG) BY MOUTH EVERY EVENING 45 tablet 11 insulin aspart (NOVOLOG FLEXPEN) 100 UNIT/ML pen Novolog Flexpen Give before meals For Pre-Meal Glucose: 140-189 give 1 unit 190-239 give 2 units 240-289 give 3 units 290-339 give 4 units = or >340 give 5 units insulin aspart (NOVOLOG FLEXPEN) 100 UNIT/ML pen Novolog Flexpen 3 units with breakfast, lunch and dinner. Hold for premeal glucose <100 insulin glargine (LANTUS PEN) 100 UNIT/ML pen Inject 22 Units subcutaneously at bedtime. insulin pen needle (29G X 12MM) 29G X 12MM miscellaneous Use pen needles daily or as directed. 100 each 5 ipratropium (ATROVENT) 0.02 % neb solution Take 2.5 mLs (0.5 mg) by nebulization 4 times daily. ipratropium - albuterol 0.5 mg/2.5 mg/3 mL (DUONEB) 0.5-2.5 (3) MG/3ML neb solution NEBULIZE AND INHALE 1 VIAL BY MOUTH EVERY 4 HOURS NEEDED FOR SHORTNESS OF BREATH, DYSPNEA OR WHEEZE 180 mL 0 levalbuterol (XOPENEX) 1.25 MG/3ML neb solution Take 3 mLs (1.25 mg) by nebulization 4 times daily. Lidocaine (LIDOCARE) 4 % Patch Place 1 patch onto the skin every 24 hours Apply at 8AM and remove at 8PM. Off for 12 hours. melatonin 5 MG CAPS Take 5 mg by mouth at bedtime 90 capsule 3 Menthol-Methyl Salicylate (LETTY NELSON GREASELESS) cream Apply topically every evening Apply to back topically after lidocaine patch is removed at 8PM. metoprolol tartrate (LOPRESSOR) 25 MG tablet Take 1 tablet (25 mg) by mouth 2 times daily. montelukast (SINGULAIR) 10 MG tablet Take 1 tablet (10 mg) by mouth daily 30 tablet 2 Multiple Vitamin (DAILY-SHELLEY) TABS Take 1 tablet by mouth daily 30 tablet 11 nicotine (COMMIT) [address] 1 lozenge (2 mg) inside cheek every hour as needed for nicotine withdrawal symptoms. 81 lozenge 5 nicotine (NICODERM CQ) 14 MG/24HR 24 hr patch APPLY 1 PATCH TO CLEAN, DRY, HAIRLESS SKIN ONCE DAILY. REMOVE OLD PATCH BEFORE APPLYING NEW PATCH 28 patch 10 omeprazole (PRILOSEC) [address] capsule TAKE 1 CAPSULE BY MOUTH TWICE DAILY - MORNING AND EVENING 180 capsule 3 ondansetron (ZOFRAN) 4 MG tablet TAKE 1 TABLET BY MOUTH EVERY 8 HOURS NEEDED FOR NAUSEA 12 tablet 3 polyethylene glycol (MIRALAX) 17 GM/Dose powder Take 17 g by mouth daily as needed for constipation. potassium chloride mckinley ER (KLOR-CON M10) 10 MEQ CR tablet Take 1 tablet (10 mEq) by mouth daily. rimegepant (NURTEC) 75 MG ODT tablet TAKE 1 TABLET BY MOUTH NEEDED FOR MIGRAINE HEADACHE. MAX 1 TABLET PER 24 HOUR 8 tablet 11 rosuvastatin (CRESTOR) 20 MG tablet Take 1 tablet (20 mg) by mouth at bedtime. Please make lab appt (LDL) for further refills 30 tablet 2 senna-docusate (SENEXON-S) 8.6-50 MG tablet Take 1 tablet by mouth every morning 30 tablet 11 sertraline (ZOLOFT) 25 MG tablet TAKE 1 TABLET BY MOUTH ONCE DAILY. 30 tablet 5 sodium chloride (OCEAN) 0.65 % nasal spray Nasal rinse x2 before Azelastine nasal spray 480 mL 1 tiotropium (SPIRIVA RESPIMAT) 2.5 MCG/ACT inhaler Inhale 2 puffs into the lungs. torsemide (DEMADEX) 10 MG tablet Take 1 tablet (10 mg) by mouth daily. traMADol 25 MG TABS tablet Take 1 tablet (25 mg) by mouth every 12 hours as needed for moderate pain. 15 tablet 0 TRELEGY ELLIPTA 100-62.5-25 MCG/ACT oral inhaler INHALE 1 PUFF INTO THE LUNGS ONCE DAILY 60 each 11 vitamin D2 (ERGOCALCIFEROL) 55276 units (1250 mcg) capsule Take 1 capsule (50,000 Units) by mouth once a week. No current facility-administered medications for this visit. [2] Allergies Allergen Reactions Bupropion Other (See Comments) Wellbutrin contraindicated in patients with epilepsy Levofloxacin Nausea and Vomiting, Difficulty breathing and Rash Sulfa Antibiotics Anaphylaxis, Nausea, Hives, Difficulty breathing and Rash Bactrim entered separately as well as drug class entry for sulfa antibiotics, Bactrim separate entry on intermediate medication list 06/18/23 Vicodin [Hydrocodone-Acetaminophen] Shortness Of Breath Codeine Triggers a migraine headache. Conjugated Estrogens [place] Extract Angioedema Dichlorobenzyl Alcohol G.I Bleed. Estrogens Conjugated Hydroxyzine Hydroxyzine Hcl Nausea Imitrex [Sumatriptan Succinate] Rebound headache, made headache worse Mirtazapine migraines Nsaids GI Disturbance bleeding Nuts Only allergic to pine nuts and walnuts Seroquel [Quetiapine] Other (See Comments) Migraines ICAL PROJECT ENGINEER documented in this encounter Nursing Notes * Pasha Stephen - 10/28/2025 11:00 AM CST Chief Complaint Patient presents with RECHECK Return Pulmonary Medications reviewed and vital signs taken. Pasha Stephen CMA ICAL PROJECT ENGINEER documented in this encounter Plan of Treatment DateTypeDepartmentCare Team (Latest Contact Info)Bwtasaslbzq77/22/2025 2:00 PM CSTOffice Visit [facility] [address] [place] [phone] Nany Solitario NP [address] [place], [place] [address] 12/27/2025 11:00 AM CSTOffice Visit [facility] [address] [place] [phone] Nany Solitario NP [address] [place], [place] [phone] [place] [address] [address] [facility] [address] [place], [place] [address] 04/28/2026 11:00 AM CDTOffice Visit [facility] [place] [address] [place] [phone] Henry Motta MD [address] [facility] [address] [place], [place] [address] NameTypePriorityAssociated DiagnosesOrder SchedulePulmonary Function TestPFT Routine Chronic bronchitis, unspecified chronic bronchitis type (H) Other emphysema (H) COPD exacerbation (H) Acute on chronic respiratory failure with hypercapnia (H) Moderate persistent asthma without complication H/O nicotine dependence Paralyzed hemidiaphragm Expected: 10/28/2025 (Approximate), Expires: 10/28/2026documented as of this encounter Results * General PFT Lab (Please always keep checked) (10/28/2025 2:41 PM CHEMICAL PROJECT ENGINEER)Component ValueRef RangeTest MethodAnalysis TimePerformed AtPathologist Signature FIO2-Pre21.00%10/28/2025 2:41 PM CSTBREEZE PFTAnatomical RegionLaterality ModalityOtherSpecimen (Source)Anatomical Location / LateralityCollection Method / VolumeCollection TimeReceived Time10/28/2025 2:41 PM CHEMICAL PROJECT ENGINEER Narrative 10/28/2025 2:41 PM CHEMICAL PROJECT ENGINEER 6MWT: ??Patient self-propelled their own wheelchair. There is significant desaturation but no hypoxemia on RA or on 2L/m oxygen. This Completed, Posted and Locked interpretation has been electronically signed by Tamia Marquez on 10/31/2025 at 4:04 PM. Authorizing ProviderResult TypeResult StatusDavid [facility] ORDERABLESFinal Result * 6 minute walk test (10/28/2025)ComponentValueRef RangeTest MethodAnalysis Time Performed AtPathologist Signature6 min walk (FT)801,012 ft6 Min Walk (M)31980 mAnatomical RegionLateralityModalityOther Narrative Authorizing ProviderResult TypeResult StatusDavid [facility] ORDERABLESFinal Result documented in this encounter Visit Diagnoses Diagnosis Chronic bronchitis, unspecified chronic bronchitis type (H)- Primary Other emphysema (H) Other emphysema COPD exacerbation (H) Obstructive chronic bronchitis with exacerbation Acute on chronic respiratory failure with hypercapnia (H) Moderate persistent asthma without complication Unspecified asthma H/O nicotine dependence Personal history of tobacco use, presenting hazards to health Paralyzed hemidiaphragm Disorders of diaphragm Severe persistent asthma without complication (H) Rheumatoid arthritis, involving unspecified site, unspecified whether rheumatoid factor present (H) Chronic bronchitis, unspecified chronic bronchitis type (H) Other emphysema (H) Other emphysema COPD exacerbation (H) Obstructive chronic bronchitis with exacerbation Acute on chronic respiratory failure with hypercapnia (H) Moderate persistent asthma without complication Unspecified asthma H/O nicotine dependence Personal history of tobacco use, presenting hazards to health Paralyzed hemidiaphragm Disorders of diaphragm Severe persistent asthma without complication (H) Rheumatoid arthritis, involving unspecified site, unspecified whether rheumatoid factor present (H) documented in this encounter Additional Health Concerns InfectionOnset DateLast IndicatedResolved AibsJGSY00/02/998335/4Assessment Noted TimePHQ-9 Depression Total Score: 3:03 PM CSTdocumented as of this encounter Care Teams Team MemberRelationshipSpecialtyStart DateEnd Date Kiana Dennis [address] [place] [phone] PCP - GeneralFamily Practice02/25/25 Raphael Solo MD [address] [place], [place] [address] Orthopedics03/06/15 Isac Mayorga MD [address] [facility] [address] [place], [place] [address] MDCardiology03/07/15 Henry Motta MD [address] [facility] [address] [place], [place] [address] Internal Medicine04/17/15 Tania Arevalo MD [address] [place] [address] Ophthalmology06/16/15 Paolo Ferris MD [address] [facility] [address] [place] [address] Referring PhysicianInternal Medicine06/28/15 Jone Ward MD [address] [facility] [address] [place] [address] MDOphthalmology07/05/15 Ave Del Toro MD [address] [facility] [address] [place] [address] MDRheumatology07/20/15 Aleks Phillips MD [address] [place] [address] BXJiztehsnufjwy39/17/15 Aliyah Rust APRN SWITCH INSPECTOR [address] [place] [address] Nurse PractitionerClinical Nurse Specialist03/19/16 Issac Graham MD [address] [place] [address] MDNeurolog11/25/16 Ana Maria Hwang MD [address] [facility] [address] [place] [address] MDInternal Sevnyphc67/26/17 Marcial Astudillo MD [facility] [address] [facility] [address] [place], [place] [address] ResidentStudent in organized health care education/training hthicmq30/6/17 Ekaterina Reardon MD [address] [place] [address] [phone] Neurology02/03/18 Raphael Teresa MD [address] [place] [address] Orthopaedic Surgery03/12/18 Smooth Hussein MD [address] [place] [address] MDAnesthesiology04/27/18 La Lopez MD [address] [place] [address] 985155 MDNeurolog12/02/19 Issac Graham MD [address] [place] [address] Referring PhysicianNeurology1 Natalie Vasques MD [address] [place] [address] 337115 Assigned PCP02/25/21 Mat Sanchez Jr., MD [address] [place], [place] [address] ResidentStudent in organized health care education/training jpepssq23/25/21 Hussein Roth, RIKI Registered Nurse02/15/22 Lisa Tolbert PA-C Physician AssistantCardiovascular Disease04/02/22 Lisa Tolbert PA-C Physician AssistantCardiovascular Disease04/02/22 Yamila Alas OD [address] [facility] [address] [place], [place] [address] Optometry06/26/22 Robyn Walter, PHLEBOTOMIST ASSOCIATE [address] [address] Nurse PractitionerCardiovascular Disease08/09/22 Vonnie Sweeney MD [address] [place] [address] MDAnesthesiology12/18/22 Yamila Alas OD [address] [facility] [address] [place] [address] Optometry05/12/23 Leonidas Razo Night RT06/27/23 Shaggy Cintron MD [address] [place] [address] [place], [place] [phone] Assigned Neuroscience Kxqlvkxr14/7/23 Delonte Moody MD [address] [place] [address] [place] [address] HgblqewslFdbvhnpwvqssl20/6/23 Lucas Veliz MD [address] [facility] [address] [place] [address] MDOtolaryngology02/04/24 Dayron Sanchez, [place] [address] [place] [address] Audiology02/04/24 Ty Grewal MD [address] [address] [facility]04/29/24 Otilia Rendon, [facility] PharmacistPharmacist9/16/24 Otilia Rendon, [facility] [place] Uqvtrwafxh59/8/24 Henry Motta MD [address] [facility] [address] [place] [address] MDCritical Care04/26/25 Lucas Veliz MD [address] [facility] [address] [place] [address] Assigned Surgical Provider05/09/25 Nany Solitario NP [address] [place] [id number] Assigned Heart and Vascular Provider08/09/25documented as of this encounter
--- OUTSIDE RECORDS SUMMARY | 2025-10-28 14:00 | XMS_ITS | Encounter Summary ---
Author Organization [facility] Address [address] [place] [address]. [place] [address] Care Team Providers Care Cafe Attendant Name Role Phone Raphael Solo MD Unavailable [phone] Isac Mayorga MD Unavailable [phone] Henry Motta MD Unavailable [phone] Tania Arevalo MD Unavailable +[phone] Paolo Ferris MD Unavailable Rachid Han MD Unavailable +[phone] MD Unavailable +[phone] Aleks Phillips MD Unavailable + [phone] Aliyah Rust APRN CONSTRUCTION CONSULTANT Unavailable [phone] Issac Graham MD Unavailable Unavailable Ana Maria Hwang MD Unavailable +[phone] Marcial Astudillo MD Unavailable +[phone] Ekaterina Reardon MD Unavailable +[phone] Raphael Teresa MD Unavailable [phone] Smooth Hussein MD Unavailable Unavailable La Lopez MD Unavailable Issac Graham MD Unavailable Unavailable Natalie Vasques MD Unavailable + Daniel Contreras MD, Willie Unavailable +[phone] Hussein Roth RN Unavailable Unavailable LieLisa ziegler Angela PA-C Unavailable Un available Liegl, Lisa Angela PA-C Unavailable Un available Yamila Alas OD Unavailable [phone] Robyn Walter DINKEY LOCOMOTIVE ENGINEER Unavailable +[phone] Vonnie Sweeney MD Unavailable +[phone] Yamila Alas OD Unavailable [phone] Leonidas Razo Unavailable Unavailable Shaggy Cintron MD Unavailable Delonte Moody MD Unavailable [phone] Lucas Veliz MD Unavailable +[phone] Dayron Sanchez Unavailable +[phone] Ty Grewal MD Unavailable +[phone] Otilia Rendon [facility] Unavailable Unavailable Otilia Rendon [facility] Unavailable Unavailable Kiana Dennis Primary Care Provider [phone] Henry Motta MD Unavailable [phone] Lucas Veliz MD Unavailable +[phone] Nany Solitario NP Unavailable +[phone] Encounter Details DateTypeDepartmentCare Team (Latest Contact Info)Zyibskyipay57/12/2025 2:00 PM CSTOrders [facility] Pul[facility] Function Testing [address] [address] Chronic bronchitis, unspecified chronic bronchitis type (H); Other emphysema (H); COPD exacerbation (H); Acute [...] of Social Gatherings with Friends and FamilyPatient jszmobse04/27/2020Attends Pentecostal ServicesPatient pdopglkr44/27/2020Active Member of Clubs or LjedtwkbvxnyiHs42/27/2020Attends Club or Organization MeetingsPatient pbruqimy34/27/2020Marital StatusLiving with niriloc8412/13/2019 AUDIT-CAnswerDate RecordedQ1: How often do you have a drink containing alcohol? Never12/13/2019Q2: How many drinks containing alcohol do you have on a typical day when you are drinking?Patient xbyhzkam64/27/2020Q3: How often do you have six or more drinks on one occasion?Patient thcrjfiy99/27/2020PHQ-2AnswerDate RecordedPHQ-2 Halpx716[place] of [employer]ational [employer] - Occupational Stress QuestionnaireAnswerDate RecordedFeeling of StressOnly a sungqa0712/13/2019Exercise Vital SignAnswerDate RecordedDays of Exercise per Week0 [...] in an abandoned building, in an overnight senior care, or couch-surfing.)Yes01/14/2025re you worried about losing your [...] have received?Associate degree: occupational, technical, or vocational fgxknpb3012/13/2019CommentsNoSex and Gender InformationValue Date RecordedSex Assigned at BirthNot on fileLegal IfkAssnpe76/04/2012 3:32 AM CSTGender IdentityNot on fileSexual OrientationNot on filedocumented as of this encounter Plan of Treatment DateTypeDepartmentCare Team (Latest Contact Info)Ejwbfgduspr66/22/2025 2:00 PM CSTOffice Visit [facility] [address] [place] [phone] Nany Solitario NP [address] [place] [address] 12/27/2025 11:00 AM CSTOffice Visit [facility] [address] [phone] Nany Solitario NP [address] [place] [address] [place] [address] [address] AGUILARDelfino [facility] [address] [place] [address] 04/28/2026 11:00 AM CDTOffice [facility] [address] [place] [address] Henry Motta MD 420 [facility] 276 [place], [place] [address] documented as of this encounter Procedures Procedure NamePriorityDate/TimeAssociated DiagnosisCommentsPFT GENERAL LAB LQFSSHUEuvnrqb20/12/2025 2:41 PM UMBRELLA FINISHER Chronic bronchitis, unspecified chronic bronchitis type (H) Other emphysema (H) COPD exacerbation (H) Acute on chronic respiratory failure with hypercapnia (H) Moderate persistent asthma without complication H/O nicotine dependence Paralyzed hemidiaphragm Severe persistent asthma without complication (H) Rheumatoid arthritis, involving unspecified site, unspecified whether rheumatoid factor present (H) [place] PULMONARY STRESS RVRMGqjukbo49/12/2025 2:35 PM UMBRELLA FINISHER Chronic bronchitis, unspecified chronic bronchitis type (H) Other emphysema (H) COPD exacerbation (H) Acute on chronic respiratory failure with hypercapnia (H) Moderate persistent asthma without complication H/O nicotine dependence Paralyzed hemidiaphragm Severe persistent asthma without complication (H) Rheumatoid arthritis, involving unspecified site, unspecified whether rheumatoid factor present (H) 6 MINUTE WALK MJKHNaxygza21/12/2025 Chronic bronchitis, unspecified chronic bronchitis type (H) Other emphysema (H) COPD exacerbation (H) Acute on chronic respiratory failure with hypercapnia (H) Moderate persistent asthma without complication H/O nicotine dependence Paralyzed hemidiaphragm Severe persistent asthma without complication (H) Rheumatoid arthritis, involving unspecified site, unspecified whether rheumatoid factor present (H) documented in this encounter Results * General PFT Lab (Please always keep checked) (10/28/2025 2:41 PM UMBRELLA FINISHER)Component ValueRef RangeTest MethodAnalysis TimePerformed AtPathologist Signature FIO2-Pre21.00%10/28/2025 2:41 PM CSTBREEZE PFTAnatomical RegionLaterality ModalityOtherSpecimen (Source)Anatomical Location / LateralityCollection Method / VolumeCollection TimeReceived Time10/28/2025 2:41 PM UMBRELLA FINISHER Narrative 10/28/2025 2:41 PM UMBRELLA FINISHER 6MWT: ??Patient self-propelled their own wheelchair. There is significant desaturation but no hypoxemia on RA or on 2L/m oxygen. This Completed, Posted and Locked interpretation has been electronically signed by Tamia Marquez on 10/31/2025 at 4:04 PM. Authorizing ProviderResult TypeResult StatusDavid [facility]val[facility] MDPFT ORDERABLESFinal Result * 6 minute walk test (10/28/2025)ComponentValueRef RangeTest MethodAnalysis Time Performed AtPathologist Signature6 min walk (FT)801,012 ft6 Min Walk (M)65466 mAnatomical RegionLateralityModalityOther Narrative Authorizing ProviderResult TypeResult StatusDavid [facility] MDPFT ORDERABLESFinal Result documented in this encounter Visit Diagnoses Diagnosis Chronic bronchitis, unspecified chronic bronchitis type (H) [...] encounter Additional Health Concerns InfectionOnset DateLast IndicatedResolved NjimTEGU85ssessment Noted TimePHQ-9 Depression Total Score: 111 3:03 PM CSTdocumented as of this encounter Care Teams Team MemberRelationshipSpecialtyStart DateEnd Date Kiana Dennis [address] [place] [address] PCP - GeneralFahily Practice02/25/25 Raphael Solo MD 909 [place], [place] [address] Orthopedics03/06/15 Isac Mayorga MD 420 [facility] 508 [place] [address] MDCardiology03/07/15 Henry Motta MD 420 [facility] [address] [place], [place] [address] MDInternal Medicine04/17/15 Tania Arevalo MD 516 [place], [place] [address] MDOphthalmology06/16/15 Paolo Ferris MD 420 [facility] 284 [place], [place] [address] Referring PhysicianInternal Medicine06/28/15 Rachid Han MD 420 [facility] 284 [place], [place] [address] MDOphthalmology07/05/15 Ave Del Toro MD 515 [facility] 88 [place], [place] [address] MDRheumatology07/20/15 Aleks Phillips MD 420 [facility] [place], [place] [address] QSTbubnavcihval79/17/15 Aliyah Rust APRN CONSTRUCTION CONSULTANT 420 [place] [address] Nurse PractitionerClinical Nurse Specialist03/19/16 Issac Graham MD 420 [place] [address] MDNeurolog11/25/16 Ana Maria Hwang MD 420 [facility] 101 [place] [address] MDInternal Mcafwdht54/26/17 Marcial Astudillo MD [facility] 516 [facility] 98 [place] [address] ResidentStudent in organized health care education/training tytqoap88/6/17 Ekaterina Reardon MD [address] [place] [address] Neurology02/03/18 Raphael Teresa MD [address] [place] [address] Orthopaedic Surgery03/12/18 Smooth Hussein MD [address] [place] [address] MDAnesthesiology04/27/18 La Lopez MD [address] [place] [address] 2[address] [place], [place] [address] Neurolog12/02/19 Issac Graham MD [address] [place] [address] Referring PhysicianNeurolog12/02/19 Natalie Vasques MD 909 [facility] [address] [place], [place] [address] Assigned PCP02/25/21 Mat Sanchez Jr., MD 420 [place], [place] [address] ResidentStudent in organized health care education/training glhreoy22/25/21 Hussein Roth, RN Registered Nurse02/15/22 Lisa Tolbert PA-C Physician AssistantCardiovascular Disease04/02/22 iLsa Tolbert PA-C Physician AssistantCardiovascular Disease04/02/22 Yamila Alas OD [address] [place] [address] Optometry06/26/22 Robyn Walter, DINKEY LOCOMOTIVE ENGINEER [address] [place], [place] [address] Nurse PractitionerCardiovascular Disease08/09/22 Vonnie Sweeney MD [address] [place] [address]435 MDAnesthesiology12/18/22 Yamila Alas, CHIQUIS [address] [place] [address]255 Optometry05/12/23 Leonidas Razo Night RT06/27/23 Shaggy Cintron MD [address] [place] [address] [place], [place] [address] Assigned Neuroscience Gtsewnld69/7/23 Delonte Moody MD [address] [place] [address] [place] [address] FnwqmhbhxZwsbkrxblwwqo81/6/23 Lucas Veliz MD [address] [place] [address] [facility] [address] [place], [place] [address] MDOtolaryngology02/04/24 [place]ron [place] Au[place] [address] [place] [address] 626049 Audiology02/04/24 Ty Grewal MD [address] [place] [address]64[address] [facility]04/29/24 Otilia Rendon [facility] PharmacistPharmacist08/02/24 Otilia Rendon [facility] Prrhfzlell74/8/24 Henry Motta MD [address] [facility] 276 [place] [address] MDCritical Care04/26/25 Lucas Veliz MD [address] [facility] [address] [place], [place] [address] Assigned Surgical Provider05/09/25 Nany Solitario NP [address] [address] Assigned Heart and Vascular Provider08/09/25documented as of this encounter
[2025-11-06] VITALS (28 sets, daily range): BP systolic 96–119; BP diastolic 53–71; PULSE 58–89; RESP 16–20; TEMP 36.2–36.7; O2SAT 74–96; BMI 36.7; BMI 37.5
--- OUTSIDE RECORDS SUMMARY | 2025-11-06 10:13 | XMS_ITS | Encounter Summary ---
Author Organization [facility] Address [address] [place] [address]. [place] [address] Care Team Providers Care Lute Packer Or Applier Name Role Phone Raphael Solo MD Unavailable [phone] Isac Mayorga MD Unavailable [phone] Henry Motta MD Unavailable [phone] Tania Arevalo MD Unavailable +[phone] Paolo Ferris MD Unavailable Rachid Han MD Unavailable +[phone] MD Unavailable +[phone] Aleks Phillips MD Unavailable + [phone] Aliyah Rust APRN CHIEF LOCK TENDER OPERATOR Unavailable +[phone] Issac Graham MD Unavailable Unavailable Ana Maria Hwang MD Unavailable [phone] Marcial Astudillo MD Unavailable [phone] Ekaterina Reardon MD Unavailable [phone] Raphael Teresa MD Unavailable [phone] Smooth Hussein MD Unavailable Unavailable La Lopez MD Unavailable Issac Graham MD Unavailable Unavailable Natalie Vasques MD Unavailable + Daniel Contreras MD, Willie Unavailable +[phone] Hussein Roth RN Unavailable Unavailable LieLisa zieglere PA-C Unavailable Un available Liegl, Lisa Angela PA-C Unavailable Un available Yamila Alas OD Unavailable + [phone] Robyn Walter ASSISTANT FILM EDITOR Unavailable [phone] Vonnie Sweeney MD Unavailable Yamila Alas OD Unavailable +[phone] Leonidas Razo Unavailable Unavailable Shaggy Cintron MD Unavailable Delonte Moody MD Unavailable +[phone] Lucas Veliz MD Unavailable +[phone] Dayron Sanchez AuD Unavailable +[phone] Ty Grewal MD Unavailable +[phone] Otilia Rendon [facility] Unavailable Unavailable Otilia Rendon [facility] Unavailable Unavailable Kiana Dennis Primary Care Provider [phone] Henry Motta MD Unavailable [phone] Lucas Veliz MD Unavailable +[phone] Nany Solitario NP Unavailable [phone] Encounter Details DateTypeDepartmentCare Team (Latest Contact Info)Rxynqkslula17/01/2025Telephone [facility] [place] [address] [facility] [address] [place] [address] Nany Solitario NP 30[address] [facility] [place] [address] Social History Tobacco UseTypesPacks/DayYears UsedDateSmoking Tobacco: FormerCigarettes0.151 Started: 11/17/1974Smokeless Tobacco: Never Comments:1-2 cigarettes a da y Alcohol UseStandard Drinks/WeekCommentsNot Currently0 (1 standard drink = 0.6 oz pure alcohol)Holidays, 1 glass on new years.Social Connection and Isolation PanelAnswerDate RecordedFrequency of Communication with Friends and FamilyTwice a week12/13/2019Frequency of Social Gatherings with Friends and FamilyPatient tuqnimhg02/27/2020Attends Shinto ServicesPatient cetpayaq78/27/2020Active Member of Clubs or QewdjkeuiwyfaJh31/27/2020Attends Club or Organization MeetingsPatient /27/2020Marital StatusLiving with kjuskhq2212/13/2019 AUDIT-CAnswerDate RecordedQ1: How often do you have a drink containing alcohol? Never12/13/2019Q2: How many drinks containing alcohol do you have on a typical day when you are drinking?Patient wefxjzpc25/27/2020Q3: How often do you have six or more drinks on one occasion?Patient xxaezekj89/27/2020PHQ-2AnswerDate RecordedPHQ-2 Vuvxq823F[place]ish [place] of Occupational Health - Occupational Stress QuestionnaireAnswerDate RecordedFeeling of StressOnly a nejime4112/13/2019Exercise Vital SignAnswerDate RecordedDays of Exercise per Week0 [...] in an abandoned building, in an overnight half-way, or couch-surfing.)Yes01/14/2025re you worried about losing your [...] have received?Associate degree: occupational, technical, or vocational peqheza0212/13/2019CommentsNoSex and Gender InformationValue Date RecordedSex Assigned at BirthNot on fileLegal BjwOnucrz96/04/2012 3:32 AM CSTGender IdentityNot on fileSexual OrientationNot on filedocumented as of this encounter Miscellaneous Notes * Telephone Encounter - Elvira Gibson - 10/17/2025 9:56 AM CST 2nd attempt- Left voicemail for the patient to call back and schedule the following: Appointment type: Testing only- No clinic visit Provider: Yolanda Solitario Return date: prior to 11/07 Additional appointment(s) needed: Additional Notes: stress testing needed Specialty phone number: [phone] LE MACHINE OPERATOR documented in this encounter Plan of Treatment DateTypeDepartmentCare Team (Latest Contact Info)Gqvhefmwghg13/22/2025 2:00 PM CSTOffice Visit [address] [place] [phone] Nany Solitario NP [address] [facility] [place] [address] 12/27/2025 11:00 AM CSTOffice Visit [address] [facility] [address] [place] [phone] Nany Solitario NP [address] [place], [place] [address] [place] [address] [address] [facility] 202 [place], [place] [address] 04/28/2026 11:00 AM CDTOffice Visit M [facility] [place] 909 [place] [phone] Henry Motta MD 420 [facility] 276 [place], [place] [address] documented as of this encounter Visit Diagnoses Not on filedocumented in this encounter Additional Health Concerns InfectionOnset DateLast IndicatedResolved UdutWWMQ48ssessment Noted TimePHQ-9 Depression Total Score: 3:03 PM CSTdocumented as of this encounter Care Teams Team MemberRelationshipSpecialtyStart DateEnd Date Kiana Dennis [address] [place] [address] PCP - GeneralFamily Practice02/25/25 Raphael Solo MD 909 [place] [address] Adamdics03/06/15 Isca Mayorga MD [address] [place] [address] 508 [place], [place] [address] MDCardiology03/07/15 Henry Motta MD 420 [facility] 276 [place], [place] [address] MDInternal Medicine04/17/15 Tania Arevalo MD [address] [place], [place] [address] MDOphthalmology06/16/15 Paolo Ferris MD 420 [facility] 284 [place], [place] [address] Referring PhysicianInternal Medicine06/28/15 Rachid Han MD 420 [facility] 284 [place], [place] [address] MDOphthalmology07/05/15 Ave Del Toro MD 515 [facility] 88 [place], [place] [address] MDRheumatology07/20/15 Aleks Phillips MD 420 [place], [place] [address] MGFsiyxowaotrnb51/17/15 Aliyah Rust, CHAIN MENDER CHIEF LOCK TENDER OPERATOR 420 [place], [place] [address] Nurse PractitionerClinical Nurse Specialist03/19/16 Issac Graham MD 420 [place] [address] MDNeurolog11/25/16 Ana Maria Hwang MD 420 [facility] 101 [place] [address] MDInternal Gkrouknf01/26/17 Marcial Astudillo MD [facility] 516 [facility] 98 [place] [address] ResidentStudent in organized health care education/training uilwjwe93/6/17 Ekaterina Reardon MD [address] [place] [address] Neurology02/03/18 Raphael Teresa MD [address] [place] [address] MDOrthopaedic Surgery03/12/18 Smooth Hussein MD [address] [place] [address] MDAnesthesiology04/27/18 La Lopez MD [address] [place] [address] MDNeurolog12/02/19 Issac Graham MD [address] [place] [address] Referring PhysicianNeurology1 Natalie Vasques MD [address] [place] [address] Assigned PCP02/25/21 Mat Sanchez Jr., MD [address] [place] [address] ResidentStudent in organized health care education/training ynuftlm62/25/21 Hussein Roth, RN Registered Nurse02/15/22 Lisa Tolbert PA-C Physician AssistantCardiovascular Disease04/02/22 Lisa Tolbert PA-C Physician AssistantCardiovascular Disease04/02/22 Yamila Alas OD 420 [facility] 493 [place], [place] [address] Optometry06/26/22 Robyn Walter, ASSISTANT FILM EDITOR [address] [place], [place] [address] Nurse PractitionerCardiovascular Disease08/09/22 Vonnie Sweeney MD 909 [place], [place] [address] MDAnesthesiology12/18/22 Yamila Alas, CHIQUIS [address] 815[address] Optometry05/12/23 Reisdorf, Leonidas Night RT06/27/23 Shaggy Cintron MD [address] [place] [address] [place], [place] [address] Assigned Neuroscience Zlacupnd61/7/23 Delonte Moody MD [address] [place] [address] [place], [place] [address] LjdalixsuMaisudhbseucs65/6/23 Lucas Veliz MD 420 [facility] 396 [place], [place] [address] Otolaryngology02/04/24 Dayron Sanchez, [place] [address] [address] [place], [place] [address] Audiology02/04/24 Ty Grewal MD [address] [address] [facility]04/29/24 Otilia Rendon [facility] PharmacistPharmacist08/02/24 Otilia Rendon [facility] Oepvuaqwql30/8/24 Henry Motta MD [address] [place] [facility] 276 [place], [place] [address] MDCritical Care04/26/25 Lucas Veliz MD [address] [place] [facility] 396 [place] [address] Assigned Surgical Provider05/09/25 Nany Solitario NP [address] [address] Assigned Heart and Vascular Provider08/09/25documented as of this encounter
--- OUTSIDE RECORDS SUMMARY | 2025-11-06 10:13 | XMS_ITS | Encounter Summary ---
Author Organization [facility] Address [address] [place] [address]. [place] [address] Care Team Providers Care Manager Card Name Role Phone Raphael Solo MD Unavailable [phone] Isac Mayorga MD Unavailable [phone] Henry Motta MD Unavailable [phone] Tania Arevalo MD Unavailable +[phone] Paolo Ferris MD Unavailable Rachid Han MD Unavailable +[phone] Del Toro MD Unavailable +[phone] Aleks Phillips MD Unavailable + [phone] Aliyah Rust APRN SURVEILLANCE SYSTEMS ENGINEER Unavailable [phone] Issac Graham MD Unavailable Unavailable Ana Maria Hwang MD Unavailable +[phone] Marcial Astudillo MD Unavailable [phone] Ekaterina Reardon MD Unavailable +[phone] Raphael Teresa MD Unavailable [phone] Smooth Hussein MD Unavailable Unavailable La Lopez MD Unavailable Issac Graham MD Unavailable Unavailable Natalie Vasques MD Unavailable + Daniel Contreras MD, Willie Unavailable +[phone] Hussein Roth RN Unavailable Unavailable LieLisa ziegler PA-C Unavailable Un available Liegl, Lisa Angela PA-C Unavailable Un available Yamila Alas OD Unavailable [phone] Robyn Walter PRICER BAGGER Unavailable +[phone] Vonnie Sweeney MD Unavailable [phone] Yamila Alas OD Unavailable [phone] Leonidas Razo Unavailable Unavailable Shaggy Cintron MD Unavailable Delonte Moody MD Unavailable [phone] Lucas Veliz MD Unavailable +[phone] Dayron Sanchez AuD Unavailable +[phone] Henry See DO Unavailable [phone] Ty Grewal MD Unavailable +[phone] [facility] Unavailable Unavailable [facility] Unavailable Unavailable Kiana Dennis Primary Care Provider [phone] Henry Motta MD Unavailable [phone] Lucas Veliz MD Unavailable + Nany Solitario NP Unavailable +[phone] Reason for Referral * Diagnostic Imaging NM (Routine) - AuthorizedSpecialtyDiagnoses / Procedures Referred By ContactReferred To ContactCardiology Diagnoses Chest pain Congestive heart failure, unspecified HF chronicity, unspecified heart failure type (H) Procedures NM Lexiscan stress test (nuc card) Nany Solitario NP [address] [address] Phone: tel: fax: [facility] [address] [facility] [address] [place] [address] Phone: tel: Referral IDStarogerMargeSunshine DateExpiration DateVisits RequestedVisits [id number]/19/202511/19/202655 ERCIAL LENDING VICE PRESIDENT * Consultation (Routine: Next available opening) - Pending ReviewSpecialty Diagnoses / ProceduresReferred By ContactReferred To ContactCardiovascular Disease Diagnoses Longstanding persistent atrial fibrillation (H) snf current use of amiodarone Nany Solitario NP [address] [facility] [place] [address] Phone: tel: fax: Referral IDStaCristofer DateExpiration DateVisits RequestedVisits [id number] Follow-up with: RENITA Reason for follow-up: EP EP Cardiology: AFIB Patient Scheduling Instructions: [facility] will call you to coordinate your care as prescribed by your provider. If you haveconcerns about scheduling, please call [phone]. Comments [facility] will call you to coordinate your care as prescribed by your provider. If you have concerns about scheduling, please call [phone]. ERCIAL LENDING VICE PRESIDENT Encounter Details DateTypeDepartmentCare Team (Latest Contact Info)Nuayfmirinf02/19/2025are Coordination [facility] [place] [address] [facility] [address] [place] [address] Estela [place] RN Social History Tobacco UseTypesPacks/DayYears UsedDateSmoking Tobacco: FormerCigarettes0.151 Started: 11/17/1974Smokeless Tobacco: Never Comments:1-2 cigarettes a da y Alcohol UseStandard Drinks/WeekCommentsNot Currently0 (1 standard drink = 0.6 oz pure alcohol)Holidays, 1 glass on new years.Social Connection and Isolation PanelAnswerDate RecordedFrequency of Communication with Friends and FamilyTwice a week12/13/2019Frequency of Social Gatherings with Friends and FamilyPatient ifsufzzm63/27/2020Attends Voodoo ServicesPatient yiwgxoah07/27/2020Active Member of Clubs or KshnooqycsoaeYr02/27/2020Attends Club or Organization MeetingsPatient kxnzfazv84/27/2020Marital StatusLiving with qufzfdk5612/13/2019 AUDIT-CAnswerDate RecordedQ1: How often do you have a drink containing alcohol? Never12/13/2019Q2: How many drinks containing alcohol do you have on a typical day when you are drinking?Patient ozokuegw49/27/2020Q3: How often do you have six or more drinks on one occasion?Patient ildgkfrl70/27/2020PHQ-2AnswerDate RecordedPHQ-2 Tabij386Finmountain west medical center [place] of Occupational Health - Occupational Stress QuestionnaireAnswerDate RecordedFeeling of StressOnly a hxhmro0412/13/2019Exercise Vital SignAnswerDate RecordedDays of Exercise per Week0 [...] in an abandoned building, in an overnight halfway, or couch-surfing.)Yes01/14/2025re you worried about losing your [...] have received?Associate degree: occupational, technical, or vocational pywuhbc2512/13/2019CommentsNoSex and Gender InformationValue Date RecordedSex Assigned at BirthNot on fileLegal FivOwxkif26/04/2012 3:32 AM CSTGender IdentityNot on fileSexual OrientationNot on filedocumented as of this encounter Plan of Treatment DateTypeDepartmentCare Team (Latest Contact Info)Xhqvhnbfvmo57/22/2025 2:00 PM CSTOffice Visit [facility] [address] [place] [phone] Nany Solitario NP [address] [address] 12/27/2025 11:00 AM CSTOffice Visit [facility] [place] [address] [place] [phone] Nany Solitario NP [address] 0095[address] [place] [address] [address] [place] [address] 04/28/2026 11:00 AM CDTOffice Visit [facility] [place] [address] [place] [phone] Henry Motta MD [address] [place] [address] 276 [place], [place] [address] NameTypePriorityAssociated DiagnosesOrder ScheduleFollow-Up with Cardiology RENITA ReferralRoutine: Next available opening Longstanding persistent atrial fibrillation (H) 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 Expected: 10/19/2025 (Approximate), Expires: 10/05/2026documented as of this encounter Results * NM Lexiscan stress test (nuc card) (10/26/2025 11:57 AM COMMERCIAL LENDING VICE PRESIDENT)ComponentValueRef RangeTest MethodAnalysis TimePerformed AtPathologist SignatureTarget HR152 RADIANTBaseline Systolic ZD028BJUDYBOBkeqzawx Diastolic WO20GHCHGKAVwio Stress Systolic CA558PRKCSCHQbul Stress Diastolic ZK04QBTIBXEYvjwksuu RG99qnzIWEPWKE Max OB63CNTLBOGNku Predicted HR53%RADIANTRate Pressure Product8,800.0RADIANT Left Ventricular EF69%RADIANTAnatomical RegionLateralityModalityChestNuclear MedicineSpecimen (Source)Anatomical Location / LateralityCollection Method / VolumeCollection TimeReceived Time Narrative 10/26/2025 2:26 PM COMMERCIAL LENDING VICE PRESIDENT The nuclear stress test is negative for [...] wall motion is normal. Authorizing ProviderResult TypeResult StatusElizabeTrinity Health System [facility] NM ORDERABLES Final Result documented in this encounter Visit Diagnoses Diagnosis Longstanding persistent atrial fibrillation (H)- Primary snf current use of amiodarone Chest pain Chest pain, unspecified Congestive heart failure, unspecified HF chronicity, unspecified heart failure type (H) Chest pain Chest pain, unspecified Congestive heart failure, unspecified HF chronicity, unspecified heart failure type (H) documented in this encounter Additional Health Concerns InfectionOnset DateLast IndicatedResolved LnahSAYK024Assessment Noted TimePHQ-9 Depression Total Score: 111 3:03 PM CSTdocumented as of this encounter Care Teams Team MemberRelationshipSpecialtyStart DateEnd Date Kiana Dennis [address] [place] [phone] PCP - GeneralFamily Practice02/25/25 Raphael Solo MD [address] [place] [address] Lucretia03/06/15 Isac Mayorga MD [address] [place] [address], [place] [address] MDCardiology03/07/15 Henry Motta MD 420 [facility] 276 [place] [address] MDInternal Medicine04/17/15 Tania Arevalo MD [address] [place], [place] [address] MDOphthalmology06/16/15 Paolo Ferris MD [address] [place] [address] 284 [place], [place] [address] Referring PhysicianInternal Medicine06/28/15 Rachid Han MD [address] [place] [address] 284 [place], [place] 618455 MDOphthalmology07/05/15 Ave Del Toro MD [address] [place] [address] 88 [place], [place] 8[address]65 MDRheumatology07/20/15 Aleks Phillips MD [address] [place] [address] 7715[address] CEKjiyqfqlezfai35/17/15 Aliyah Rust, TECHNICAL ADMINISTRATOR SURVEILLANCE SYSTEMS ENGINEER [address] [place] [address] 061035 Nurse PractitionerClinical Nurse Specialist03/19/16 Issac Graham MD [address] [place] [address] MDNeurolog11/25/16 Ana Maria Hwang MD 420 [facility] 101 [place] [address] MDInternal Csnctqkt95/26/17 Marcial Astudillo MD [facility] 516 [facility] 98 [place], [place] [address] ResidentStudent in organized health care education/training ggqhned34/6/17 Ekaterina Reardon MD 909 [place], [place] 341785 Neurology02/03/18 Raphael Teresa MD [facility] [address] [address] Orthopaedic Surgery03/12/18 Smooth Hussein MD [facility] [address] [address] MDAnesthesiology04/27/18 La Lopez MD [address] [place] [address] Neurolog12/02/19 Issac Graham MD 420 [place] [address] Referring PhysicianNeurolog12/02/19 Natalie Vasques MD [address] [place] [address]535 Assigned PCP02/25/21 Mat Sanchez Jr., MD 420 [place], [place] [address] ResidentStudent in organized health care education/training pqeovow99/25/21 Hussein Roth, RN Registered Nurse02/15/22 Lisa Tolbert PA-C Physician AssistantCardiovascular Disease04/02/22 Lisa Tolbert PA-C Physician AssistantCardiovascular Disease04/02/22 Yamila Alas, CHIQUIS [address] [address] Optometry06/26/22 Robyn Walter, PRICER BAGGER 6[address] [facility] [place] [address] Nurse PractitionerCardiovascular Disease08/09/22 Vonnie Sweeney MD [address] [place] [address] MDAnesthesiology12/18/22 Yamila Alas, OD [address] [place] [address] Optometry05/12/23 Leonidas Razo Night RT06/27/23 Shaggy Cintron MD [address] [place] [address] Assigned Neuroscience Hbolxpwa77/7/23 Delonte Moody MD [address] [place] [address] XibvgtyouGrkbgvvcgimli67/6/23 Lucas Veliz MD [address] [address] MDOtolaryngology02/04/24 Dayron Sanchez AuD [address] [place] [address] Audiology02/04/24 Henry See DO [address] [place] [address] Assigned Musculoskeletal Provider03/09/2411 Ty Grewal MD [address] [address] [facility]04/29/24 Otilia Rendon RPH PharmacistPharmacist08/02/24 Otilia Rendon RPH [facility] Tseetevufk61/8/24 Henry Motta MD 420 [facility] 276 [place] [address] MDCritical Care04/26/25 Lucas Veliz MD 420 [facility] 396 [place], [place] [address] Assigned Surgical Provider05/09/25 Nany Solitario NP [address] 170[address] Assigned Heart and Vascular Provider08/09/25documented as of this encounter
--- OUTSIDE RECORDS SUMMARY | 2025-11-06 10:13 | XMS_ITS | Encounter Summary ---
Author Organization [facility] Address [address] [place] [address]. [place] [address] Care Team Providers Care Mix Crusher Operator Name Role Phone Raphael Solo MD Unavailable [phone] Isac Mayorga MD Unavailable [phone] Henry Motta MD Unavailable [phone] Tania Arevalo MD Unavailable [phone] Paolo Ferris MD Unavailable Rachid Han MD Unavailable +[phone] MD Unavailable +[phone] Aleks Phillips MD Unavailable + [phone] Aliyah Rust APRN GLAZING DEPARTMENT SUPERVISOR Unavailable [phone] Issac Graham MD Unavailable Unavailable Ana Maria Hwang MD Unavailable +[phone] Marcial Astudillo MD Unavailable [phone] Ekaterina Reardon MD Unavailable [phone] Raphael Teresa MD Unavailable [phone] Smooth Hussein MD Unavailable Unavailable aL Lopez MD Unavailable Issac Graham MD Unavailable Unavailable Natalie Vasques MD Unavailable + Daniel Contreras MD, Willie Unavailable +[phone] Hussein Roth RN Unavailable Unavailable Lisa Tolbert PAShaniC Unavailable Un available LieLisa zieglerC Unavailable Un available Yamila Alas OD Unavailable + [phone] Robyn Walter VAULT CLERK Unavailable [phone] Vonnie Sweeney MD Unavailable [phone] Yamila Alas OD Unavailable + [phone] Leonidas Razo Unavailable Unavailable Shaggy Cintron MD Unavailable Delonte Moody MD Unavailable [phone] Lucas Veliz MD Unavailable +[phone] Dayron Sanchez AuD Unavailable +[phone] Henry See DO Unavailable [phone] Ty Grewal MD Unavailable [phone] Otilia Rendon [facility] Unavailable Unavailable Otilia Rendon [facility] Unavailable Unavailable Kiana Dennis Primary Care Provider [phone] Henry Motta MD Unavailable [phone] Lucas Veliz MD Unavailable + [phone] Nany Solitario NP Unavailable [phone] Encounter Details DateTypeDepartmentCare Team (Latest Contact Info)Mrantyztvle77/12/2025Travel Social History Tobacco UseTypesPacks/DayYears UsedDateSmoking Tobacco: FormerCigarettes0.151 Started: 11/17/1974Smokeless Tobacco: Never Comments:1-2 cigarettes a da y Alcohol UseStandard Drinks/WeekCommentsNot Currently0 (1 standard drink = 0.6 oz pure alcohol)Holidays, 1 glass on new years.Social Connection and Isolation PanelAnswerDate RecordedFrequency of Communication with Friends and FamilyTwice a week12/13/2019Frequency of Social Gatherings with Friends and FamilyPatient /27/2020Attends Voodoo ServicesPatient gtxkakwj58/27/2020Active Member of Clubs or JgjtmgmnkxerqMq42/27/2020Attends Club or Organization MeetingsPatient puaijgzt18/27/2020Marital StatusLiving with bkumsso9012/13/2019 AUDIT-CAnswerDate RecordedQ1: How often do you have a drink containing alcohol? Never12/13/2019Q2: How many drinks containing alcohol do you have on a typical day when you are drinking?Patient kigkyyie22/27/2020Q3: How often do you have six or more drinks on one occasion?Patient urtipbht52/27/2020PHQ-2AnswerDate RecordedPHQ-2 Wqqab345[place] of Occupational Health - Occupational Stress QuestionnaireAnswerDate RecordedFeeling of StressOnly a nsbatc7812/13/2019Exercise Vital SignAnswerDate RecordedDays of Exercise per Week0 [...] in an abandoned building, in an overnight nursing home, or couch-surfing.)Yes01/14/2025re you worried about losing [...] have received?Associate degree: occupational, technical, or vocational htelxwi4812/13/2019CommentsNoSex and Gender InformationValue Date RecordedSex Assigned at BirthNot on fileLegal YnoDbmmnf53/04/2012 3:32 AM CSTGender IdentityNot on fileSexual OrientationNot on filedocumented as of this encounter Plan of Treatment DateTypeDepartmentCare Team (Latest Contact Info)Unnbjgsdbmt50/22/2025 2:00 PM CSTOffice Visit [facility] [address] [place] [phone] Nany Solitario NP [address] [facility] [place] 48[address]85 12/27/2025 11:00 AM CSTOffice Visit [facility] [place] [address] [place] [phone] Nany Solitario NP [address] [place] 130135 [place] [address] [address] [facility] 202 [place] [address] 04/28/2026 11:00 AM CDTOffice Visit [facility] [address] [place] [phone] Henry Motta MD 420 [facility] 276 [place], [place] [address] documented as of this encounter Visit Diagnoses Not on filedocumented in this encounter Additional Health Concerns InfectionOnset DateLast IndicatedResolved SzckYSZF97/02/49996111/18/2023ssessment Noted TimePHQ-9 Depression Total Score: 111 3:03 PM CSTdocumented as of this encounter Care Teams Team MemberRelationshipSpecialtyStart DateEnd Date Kiana Dennis 700 [place] [address] PCP - GeneralFamily Practice02/25/25 Raphael Solo MD [address] [place] [address]95[address] Orthopedics03/06/15 Isac Mayorga MD 420 [facility] 508 [place], [place] [address] MDCardiology03/07/15 Henry Motta MD 420 [facility] 276 [place], [place] [address] MDInternal Medicine04/17/15 Tania Arevalo MD [address] [place] [address] 627095 MDOphthalmology06/16/15 Paolo Ferris MD 420 [facility] 284 [place], [place] [address] Referring PhysicianInternal Medicine06/28/15 Rachid Han MD 420 [facility] 284 [place], [place] [address] MDOphthalmology07/05/15 Ave Del Toro MD [address] [place] [address] 88 [place], [place] [address]85 MDRheumatology07/20/15 Aleks Phillips MD 420 [place], [place] 454185 LMZdujvhgmkxcfx10/17/15 Aliyah Rust PLANNING ASSOCIATE GLAZING DEPARTMENT SUPERVISOR [address] [place] [address] 603215 Nurse PractitionerClinical Nurse Specialist03/19/16 Issac Graham MD [address] [place] [address] MDNeurolog11/25/16 Ana Maria Hwang MD [address] [place] [address] 101 [place], [place] 4[address]65 MDInternal Iheahujs17/26/17 Marcial Astudillo MD [facility] 516 [facility] 98 [place], [place] [address]105 ResidentStudent in organized health care education/training /6/17 Ekaterina Reardon MD 909 [place], [place] 190685 Neurology02/03/18 Raphael Teresa MD [facility] [address] Orthopaedic Surgery03/12/18 Smooth Hussein MD [facility] [address] [address] MDAnesthesiology04/27/18 La Lopez MD [address] 155945 MDNeurology1 Issac Graham MD [address] [place] [address] Referring PhysicianNeurology1 Natalie Vasques MD [address] [place] [address] 833985 Assigned PCP02/25/21 Mat Sanchez Jr., MD [address] [place] [address] 776285 ResidentStudent in organized health care education/training /25/21 Hussein Roth, RN Registered Nurse02/15/22 Lisa Tolbert PA-C Physician AssistantCardiovascular Disease04/02/22 Lisa Tolbert PA-C Physician AssistantCardiovascular Disease04/02/22 Yamila Alas OD [address] [place] [address] 493 [place], [place] 137305 Optometry06/26/22 Robyn Walter, VAULT CLERK [address] [place] 434385 Nurse PractitionerCardiovascular Disease08/09/22 Vonnie Sweeney MD 909 [place], [place] 15[address]85 MDAnesthesiology12/18/22 Yamila Alas OD 420 [facility] 493 [place], [place] [address]75 Optometry05/12/23 Reisdorf, Leonidas Night RT06/27/23 Shaggy Cintron MD [address] [place], [place] [address] Assigned Neuroscience Cwxoqixp17/7/23 Delonte Moody MD [address] [place], [place] [address] RfskhwgrsThgyuytepwqjk70/6/23 Lucas Veliz MD 420 [facility] 396 [place], [place] 90[address] MDOtolaryngology02/04/24 Dayron Sanchez, [place] [address] [place] [address] 389979 Audiology02/04/24 Henry See DO 909 [place], [place] 503135 Assigned Musculoskeletal Provider03/09/2411 Ty Grewal MD [address] [place] [address] [facility]04/29/24 Otilia Rendon [facility] PharmacistPharmacist08/02/24 Otilia Rendon [facility] Uqfrlxoayc20/8/24 Henry Motta MD 420 [facility] 276 [place], [place] [address] MDCritical Care04/26/25 Lucas Veliz MD 420 [facility] 396 [place], [place] 06[address] Assigned Surgical Provider05/09/25 Nany Solitario NP [address] [place] 8[address]855 Assigned Heart and Vascular Provider08/09/25documented as of this encounter
--- OUTSIDE RECORDS SUMMARY | 2025-11-06 10:13 | XMS_ITS | Encounter Summary ---
Author Organization [facility] Address [address] [place] [address]. [place] [address] Care Team Providers Care Blood Tester Fowl Name Role Phone Raphael Solo MD Unavailable +[phone] Isac Mayorga MD Unavailable +[phone] Henry Motta MD Unavailable [phone] Tania Arevalo MD Unavailable +[phone] Paolo Ferris MD Unavailable Rachid Han MD Unavailable +[phone]o MD Unavailable +[phone] Aleks Phillips MD Unavailable + [phone] Aliyah Rust APRN POLYSOMNOGRAPHER Unavailable +[phone] Issac Graham MD Unavailable Unavailable Ana Maria Hwang MD Unavailable +[phone] Marcial Astudillo MD Unavailable +[phone] Ekaterina Reardon MD Unavailable +[phone] Raphael Teresa MD Unavailable +[phone] Smooth Hussein MD Unavailable Unavailable La Lopez MD Unavailable Issac Graham MD Unavailable Unavailable Natalie Vasques MD Unavailable + Daniel Contreras MD, Willie Unavailable +[phone] Hussein Roth RN Unavailable Unavailable LieLisa zieglere PA-C Unavailable Un available Liegl, Lisa Angela PA-C Unavailable Un available Yamila Alas OD Unavailable + [phone] Robyn Walter CASE MANAGEMENT DIRECTOR Unavailable +[phone] Vonnie Sweeney MD Unavailable +[phone] Yamila Alas OD Unavailable +[phone] Leonidas Razo Unavailable Unavailable Shaggy Cintron MD Unavailable Delonte Moody MD Unavailable +[phone] Lucas Veliz MD Unavailable +[phone] Dayron Sanchez AuD Unavailable +[phone] Ty Grewal MD Unavailable +[phone] Otilia Rendon [facility] Unavailable Unavailable Otilia Rendon [facility] Unavailable Unavailable Kiana Dennis Primary Care Provider +[phone] Henry Motta MD Unavailable [phone] Lucas Veliz MD Unavailable +[phone] Nany Solitario NP Unavailable +[phone] Encounter Details DateTypeDepartmentCare Team (Latest Contact Info)Alatdtwxgwi43/26/2025[facility] [place] [address] [facility] [address] [place] [address] Nany Solitario NP 6542 [facility] [place] [id number] Social History Tobacco UseTypesPacks/DayYears UsedDateSmoking Tobacco: FormerCigarettes0.151 Started: 11/17/1974Smokeless Tobacco: Never Comments:1-2 cigarettes a da y Alcohol UseStandard Drinks/WeekCommentsNot Currently0 (1 standard drink = 0.6 oz pure alcohol)Holidays, 1 glass on new years.Social Connection and Isolation PanelAnswerDate RecordedFrequency of Communication with Friends and FamilyTwice a week12/13/2019Frequency of Social Gatherings with Friends and FamilyPatient pzvesjzk41/27/2020Attends Mandaeism ServicesPatient aediqpmh67/27/2020Active Member of Clubs or HpismbqjazgvbLf52/27/2020Attends Club or Organization MeetingsPatient kzddzezf82/27/2020Marital StatusLiving with dympjri7212/13/2019 AUDIT-CAnswerDate RecordedQ1: How often do you have a drink containing alcohol? Never12/13/2019Q2: How many drinks containing alcohol do you have on a typical day when you are drinking?Patient dzvauhip58/27/2020Q3: How often do you have six or more drinks on one occasion?Patient usfsxtra27/27/2020PHQ-2AnswerDate RecordedPHQ-2 Vlypm407F[place] [employer]ational [employer] - Occupational Stress QuestionnaireAnswerDate RecordedFeeling of StressOnly a fkiwrj3812/13/2019Exercise Vital SignAnswerDate RecordedDays of Exercise per Week0 [...] have received?Associate degree: occupational, technical, or vocational qjvyfuc5312/13/2019CommentsNoSex and Gender InformationValue Date RecordedSex Assigned at BirthNot on fileLegal JebPjxnte06/04/2012 3:32 AM CSTGender IdentityNot on fileSexual OrientationNot on filedocumented as of this encounter Miscellaneous Notes * Telephone Encounter - Elvira Gibson - 10/12/2025 8:02 AM CST 1st attempt- Left voicemail for the patient to call back and schedule the following: Appointment type: NEW EP and Testing Provider: Return date: prior to Nov 07 for the stress testing; next avail for EP MD Additional appointment(s) needed: Additional Notes: Specialty phone number: [phone] OPERATIONS MANAGER documented in this encounter Plan of Treatment DateTypeDepartmentCare Team (Latest Contact Info)Fqejtxflqgn48/22/2025 2:00 PM CSTOffice Visit [facility] [place] [address] [facility] [address] [place] [phone] Nany Solitario NP [address] [facility] [place] [address] 12/27/2025 11:00 AM CSTOffice Visit [facility] [address] [place] [phone] Nany Solitario NP [address] [place], [place] 4[address] [place] [address] [address] [facility] 202 [place] [address] 04/28/2026 11:00 AM CDTOffice Visit M [facility] [place] 909 [place] [phone] Henry Motta MD 420 [facility] 276 [place] [address] documented as of this encounter Visit Diagnoses Not on filedocumented in this encounter Additional Health Concerns InfectionOnset DateLast IndicatedResolved VcnxIBRY18ssessment Noted TimePHQ-9 Depression Total Score: 3:03 PM CSTdocumented as of this encounter Care Teams Team MemberRelationshipSpecialtyStart DateEnd Date Kiana Dennis 700 [place] [address] PCP - GeneralFamily Practice02/25/25 Raphael Solo MD 909 [place] [address] Michaelcs03/06/15 Isac Mayorga MD [address] [place] [address] 508 [place] [address] MDCardiology03/07/15 Henry Motta MD 420 [facility] 276 [place], [place] [address] MDInternal Medicine04/17/15 Tania Arevalo MD 516 [place], [place] [address] MDOphthalmology06/16/15 Paolo Ferris MD 420 [facility] 284 [place], [place] [address] Referring PhysicianInternal Medicine06/28/15 Rachid Han MD 420 [facility] 284 [place], [place] [address] MDOphthalmology07/05/15 Ave Del Toro MD 515 [facility] 88 [place], [place] [address] MDRheumatology07/20/15 Aleks Phillips MD 420 [place], [place] 3[address]95 GODwlhwxormdnui38/17/15 Aliyah Rust, COMMUNITY SERVICE AIDE POLYSOMNOGRAPHER 420 [place], [place] [address] Nurse PractitionerClinical Nurse Specialist03/19/16 Issac Graham MD 420 [place] [address] MDNeurolog11/25/16 Ana Maria Hwang MD 420 [facility] 101 [place] [address] MDInternal Czqpkend12/26/17 Marcial Astudillo MD [facility] 516 [facility] 98 [place] [address] ResidentStudent in organized health care education/training jnhyehr90/6/17 Ekaterina Reardon MD [address] [place] [address] Neurology02/03/18 Raphael Teresa MD [facility] [address] Orthopaedic Surgery03/12/18 Smooth Hussein MD [facility] [address] MDAnesthesiology04/27/18 La Lopez MD [address] [place] [address] MDNeurolog12/02/19 Issac Graham MD 420 [place] [address] Referring PhysicianNeurology1 Natalie Vasques MD [address] [place] [address] 916715 Assigned PCP02/25/21 Mat Sanchez Jr., MD 420 [place] [address] ResidentStudent in organized health care education/training wjcnhse23/25/21 Hussein Roth, RN Registered Nurse02/15/22 Lisa Tolbert PA-C Physician AssistantCardiovascular Disease04/02/22 Lisa Tolbert PA-C Physician AssistantCardiovascular Disease04/02/22 Yamila Alas OD 420 [facility] 493 [place], [place] [address] Optometry06/26/22 Robyn Walter, CASE MANAGEMENT DIRECTOR [address] [place], [place] [address] Nurse PractitionerCardiovascular Disease08/09/22 Vonnie Sweeney MD 909 [place], [place] [address] MDAnesthesiology12/18/22 Yamila Alas, OD [address] 241485 Optometry05/12/23 Danni, Leonidas Night RT06/27/23 Shaggy Cintron MD [address] [place] [address] [place], [place] [address] Assigned Neuroscience Ycxqidjr32/7/23 Delonte Moody MD [address] [place] [address] [place], [place] [address] QsbgqprzfFusxifonobfzz28/6/23 Lucas Veliz MD 420 [facility] 396 [place], [place] 38[address]85 MDOtolaryngology02/04/24 Dayron Sanchez, [place] [address] [place] [address] Audiology02/04/24 Ty Grewal MD [address] [place] [place] 082975 [facility]04/29/24 Otilia Rendon RPH PharmacistPharmacist08/02/[address] [facility] Xirqbmzftd76/8/24 Henry Motta MD 420 [facility] 276 [place], [place] [address]40[address] MDCritical Care04/26/25 Lucas Veliz MD 420 [facility] 396 [place] [address] Assigned Surgical Provider05/09/25 Nany Solitario NP [address] [place] [address] Assigned Heart and Vascular Provider08/09/25documented as of this encounter
--- OUTSIDE RECORDS SUMMARY | 2025-11-06 10:13 | XMS_ITS | Encounter Summary ---
Author Organization [place] Address [address] [place] [address]. [place] [address] Care Team Providers Care Bobbin Cleaner Hand Name Role Phone Raphael Solo MD Unavailable [phone] Isac Mayorga MD Unavailable [phone] Henry Motta MD Unavailable [phone] Tania Arevalo MD Unavailable +[phone] Paolo Ferris MD Unavailable Rachid Han MD Unavailable +[phone] MD Unavailable +[phone] Aleks Phillips MD Unavailable + [phone] Aliyah Rust APRN SOCIAL RESEARCH ASSISTANT Unavailable [phone] Issac Graham MD Unavailable Unavailable Ana Maria Hwang MD Unavailable +[phone] Marcial Astudillo MD Unavailable +[phone] Ekaterina Reardon MD Unavailable [phone] Raphael Teresa MD Unavailable [phone] Smooth Hussein MD Unavailable Unavailable La Lopez MD Unavailable Issac Graham MD Unavailable Unavailable Natalie Vasques MD Unavailable + Daniel Contreras MD, Willie Unavailable +[phone] Hussein Roth RN Unavailable Unavailable LieLisa zieglere PA-C Unavailable Un available Liegl, Lisa Angela PA-C Unavailable Un available Yamila Alas OD Unavailable + [phone] Robyn Walter METAL STAMPER Unavailable +[phone] Vonnie Sweeney MD Unavailable [phone] Yamila Alas OD Unavailable [phone] Leonidas Razo Unavailable Unavailable Shaggy Cintron MD Unavailable Delonte Moody MD Unavailable [phone] Lucas Veliz MD Unavailable +[phone] Dayron Sanchez AuD Unavailable +[phone] Ty Grewal MD Unavailable +[phone] Otilia Rendon [facility] Unavailable Unavailable Otilia Rendon [facility] Unavailable Unavailable Kiana Dennis Primary Care Provider [phone] Henry Motta MD Unavailable [phone] Lucas Veliz MD Unavailable +[phone] Nany Solitario NP Unavailable [phone] Encounter Details DateTypeDepartmentCare Team (Latest Contact Info)Ieyqlnvdddt66/24/2025[facility] [place] [place] Medical Advice [facility] [place] 6[address] [facility] [address] [place] [address] Nany Solitario NP [address] [place] [id number] Social History Tobacco UseTypesPacks/DayYears UsedDateSmoking Tobacco: FormerCigarettes0.151 Started: 11/17/1974Smokeless Tobacco: Never Comments:1-2 cigarettes a da y Alcohol UseStandard Drinks/WeekCommentsNot Currently0 (1 standard drink = 0.6 oz pure alcohol)Holidays, 1 glass on new years.Social Connection and Isolation PanelAnswerDate RecordedFrequency of Communication with Friends and FamilyTwice a week12/13/2019Frequency of Social Gatherings with Friends and FamilyPatient gmkhinox57/27/2020Attends Episcopalian ServicesPatient /27/2020Active Member of Clubs or PaimsxxjqxgnoUs34/27/2020Attends Club or Organization MeetingsPatient xlkynezo53/27/2020Marital StatusLiving with qazwewm2012/13/2019 AUDIT-CAnswerDate RecordedQ1: How often do you have a drink containing alcohol? Never12/13/2019Q2: How many drinks containing alcohol do you have on a typical day when you are drinking?Patient onqflzrm21/27/2020Q3: How often do you have six or more drinks on one occasion?Patient butwaoly77/27/2020PHQ-2AnswerDate RecordedPHQ-2 Buxhm336[place] of Occupational Health - Occupational Stress QuestionnaireAnswerDate RecordedFeeling of StressOnly a iethku9012/13/2019Exercise Vital SignAnswerDate RecordedDays of Exercise per Week0 [...] in an abandoned building, in an overnight snf, or couch-surfing.)Yes01/14/2025re you worried about losing your housing?No 02/28/2025Financial Resource StrainAnswerDate RecordedWithin the past 12 months, [...] have received?Associate degree: occupational, technical, or vocational qdutzte5712/13/2019CommentsNoSex and Gender InformationValue Date RecordedSex Assigned at BirthNot on fileLegal ZeiTxkkoa68/04/2012 3:32 AM CSTGender IdentityNot on fileSexual OrientationNot on filedocumented as of this encounter Miscellaneous Notes * Telephone Encounter - Carmen Oliver RN - 10/10/2025 4:57 PM MANAGER LAB Thanks Lester, I missed the afib as well... Agree, symptoms were atypical if I recall correctly. Nursing can we arrange for her to have a lexiscan nuclear stress test prior to my visit with her in October? Can we also arrange for a follow up with EP? This can be with an RENITA since she has already been evaluated by Dr. Younger. Thanks. GER LAB documented in this encounter Plan of Treatment DateTypeDepartmentCare Team (Latest Contact Info)Wccufuuyuib26/22/2025 2:00 PM CSTOffice Visit [place] [address] [place] [phone] Nany Solitario NP [address] [place] [address] 12/27/2025 11:00 AM CSTOffice Visit M [facility] [address] [place] [phone] Nany Solitario NP [address] [place] [address] [place] [address] [address] [facility] 202 [place], [place] [address] 04/28/2026 11:00 AM CDTOffice Visit [facility] [address] [phone] Henry Motta MD [address] [place] [address]25 documented as of this encounter Visit Diagnoses Not on filedocumented in this encounter Additional Health Concerns InfectionOnset DateLast IndicatedResolved AkefFAWF08/02/3103814Assessment Noted TimePHQ-9 Depression Total Score: 3:03 PM CSTdocumented as of this encounter Care Teams Team MemberRelationshipSpecialtyStart DateEnd Date Kiana Dennsi 700 [place] [address] PCP - GeneralFamily Practice02/25/25 Raphael Solo MD [address] [place] [address] Lucretia03/06/15 Isac Mayorga MD [facility] [address] [place], [place] [address] MDCardiology03/07/15 Henry Motta MD [address] [place] [address] [address] [place], [place] [address] MDInternal Medicine04/17/15 Tania Arevalo MD 516 [place], [place] [address] MDOphthalmology06/16/15 Paolo Ferris MD [address] [place] [address] 284 [place], [place] [address] Referring PhysicianInternal Medicine06/28/15 Rachid Han MD [address] [place] [address] 284 [place], [place] [address] MDOphthalmology07/05/15 Ave Del Toro MD [address] [place] [address] [address] [place], [place] [address] MDRheumatology07/20/15 Aleks Phillips MD [address] [place] [address]15 RJPgtqrbawcgzdk05/17/15 Aliyah Rust, PAID SEARCH MARKETING STRATEGIST SOCIAL RESEARCH ASSISTANT [address] [place] [address] Nurse PractitionerClinical Nurse Specialist03/19/16 Issac Graham MD [address] [place] [address] MDNeurolog11/25/16 Ana Maria Hwang MD 420 [facility] [address] [place], [place] [address] MDInternal Gplnejhv52/26/17 Marcial Astudillo MD [facility] 516 [facility] 98 [place], [place] [address] ResidentStudent in organized health care education/training rodyixb31/6/17 Ekaterina Reardon MD [address] [place] [address]955 Neurology02/03/18 Raphael Teresa MD [facility] [address] 173434 Orthopaedic Surgery03/12/18 Smooth Hussein MD [address] [address] MDAnesthesiology04/27/18 La Lopez MD [address] [place] [address] Neurolog12/02/19 Issac Graham MD 420 [place] [address] Referring PhysicianNeurolog12/02/19 Natalie Vasques MD [address] [place] [address] 329935 Assigned PCP02/25/21 Mat Sanchez Jr., MD 420 [place], [place] [address] ResidentStudent in organized health care education/training jzmnpfu26/25/21 Hussein Roth, RN Registered Nurse02/15/22 Lisa Tolbert PA-C Physician AssistantCardiovascular Disease04/02/22 Lisa Tolbert PA-C Physician AssistantCardiovascular Disease04/02/22 Yamila Alas, OD [address] [address] Optometry06/26/22 Robyn Walter, METAL STAMPER 6[address] [facility] [place] [address] Nurse PractitionerCardiovascular Disease08/09/22 Vonnie Sweeney MD [address] [place] [address] MDAnesthesiology12/18/22 Yamila Alas, OD [address] [place] [place] [address] Optometry05/12/23 Leonidas Razo RT06/27/23 Shaggy Cintron MD [address] [address] [place] [address] Assigned Neuroscience Kgnvdjyj23/7/23 Delonte Moody MD [address] [address] [place] [address] LkmknbvizWrmupgrbmxety95/6/23 Lucas Veliz MD 420 [facility] [address] [place] [address] MDOtolaryngology02/04/24 Dayron Sanchez AuD [address] [place] [address] Audiology02/04/24 Ty Grewal MD [address] [address] [facility]04/29/24 Otilia Rendon RPH PharmacistPharmacist08/02/24 Otilia Rendon RPH [facility] Gdgqynhujs45/8/24 Henry Motta MD 420 [facility] [address] [place] [address] MDCritical Care04/26/25 Lucas Veliz MD 420 [facility] 396 [place] [address] Assigned Surgical Provider05/09/25 Nany Solitario NP [address] [address] Assigned Heart and Vascular Provider08/09/25documented as of this encounter
--- OUTSIDE RECORDS SUMMARY | 2025-11-06 10:13 | XMS_ITS | Clinical Summary ---
Author Organization [place] Address [address] [place] [address]. [place] [address] Care Team Providers Care Plate Filler Name Role Phone Raphael Solo MD Unavailable [phone] Isac Mayorga MD Unavailable [phone] Henry Motta MD Unavailable [phone] Tania Arevalo MD Unavailable [phone] Paolo Ferris MD Unavailable Rachid Han MD Unavailable [phone] Toro MD Unavailable [phone] Aleks Phillips MD Unavailable [phone] Aliyah Rust APRN FLOATING OPERATOR Unavailable [phone] Issac Graham MD Unavailable Unavailable Ana Maria Hwang MD Unavailable [phone] Marical Astudillo MD Unavailable [phone] Ekaternia Reardon MD Unavailable [phone] Raphael Teresa MD Unavailable [phone] Smooth Hussein MD Unavailable Unavailable La Lopez MD Unavailable Issac Graham MD Unavailable Unavailable Natalie Vasques MD Unavailable + Daniel Contreras MD, Willie Unavailable [phone] Hussein Roth RN Unavailable Unavailable Liegl, Lisa Angela PA-C Unavailable Un available Liegl, Lisa Angela PA-C Unavailable Un available Yamila Alas OD Unavailable [phone] Roybn Walter SCHOOL PSYCHOLOGIST Unavailable [phone] Vonnie Sweeney MD Unavailable [phone] Yamila Alas OD Unavailable [phone] Leonidas Razo Unavailable Unavailable Shaggy Cintron MD Unavailable Delonte Moody MD Unavailable Lucas Veliz MD Unavailable [phone] Dayron Sanchez Unavailable [phone] Ty Grewal MD Unavailable Otilia Rendon [facility] Unavailable Unavailable Otilia Rendon [facility] Unavailable Unavailable Kiana Dennis Primary Care Provider [phone] Henry Motta MD Unavailable [phone] Lucas Veliz MD Unavailable [phone] Nany Solitario NP Unavailable [phone] Allergies Active AllergyReactionsCriticalityNoted DateCommentsBupropionOther (See Comments)High11/19/2023 Wellbutrin contraindicated in patients with epilepsy Btxglnk1308/27/2010 Triggers a migraine headache. Conjugated Tbxpabdne63/28/2024ucumber OxpykbsTfqjxplrww04/22/2022ichlorobenzyl Qhdaeft9108/27/2010 G.I Bleed. Estrogens Gkamtoiuss06/10/6821Gimzsesdvyd98/28/2024Hydroxyzine HclNausea 02/06/2012Sumatriptan Mpzmilsjn19/22/2011 Rebound headache, made headache worse LevofloxacinNausea and Vomiting,Difficulty breathing,DacoHgnz47/11/2010 Sshuhnjtbew79/11/2016 migraines NsaidsGI Wnufonobjcu45/22/2011 bleeding Nuts07/02/2018 Only allergic to pine nuts and walnuts QuetiapineOther (See Comments)04/01/2014 Migraines Sulfa AntibioticsAnaphylaxis,Nausea,Hives,Difficulty breathing,RashHigh 04/14/2014 Bactrim entered separately as well as drug class entry for sulfa antibiotics, Bactrim separate entry on senior living medication list 06/18/23 Hydrocodone-AcetaminophenShortness Of LeqztjWhsu95/31/2015 Medications MedicationSigDispense QuantityRefillsLast FilledStart DateEnd DateStatus albuterol (PROAIR HFA/PROVENTIL HFA/VENTOLIN HFA) 108 (90 Base) MCG/ACT inhaler Indications:Moderate persistent asthma without complicationInhale 2 puffs into the lungs every 4 hours as needed for shortness of breath / dyspnea or wheezing 18 g 11112/20/2020ctive Bioflavonoid Products (CHARLENE-C PO) Take 1,000 mg by mouth 2 times dailyActive cyanocobalamin (VITAMIN B-12) 1000 MCG tablet Take 1,000 mcg by mouth every morning.Active Menthol-Methyl Salicylate (LETTY NELSON GREASELESS) cream Apply topically every evening Apply to back topically after lidocaine patch is removed at 8PM.Active Lidocaine (LIDOCARE) 4 % Patch Indications:Chronic bilateral low back pain with right-sided sciaticaPlace 1 patch onto the skin every 24 hours Apply at 8AM and remove at 8PM. Off for 12 hours.05/30/2023ctive albuterol (PROVENTIL) (2.5 MG/3ML) 0.083% neb solution Indications:COPD exacerbation (H)Take 1 vial (2.5 mg) by nebulization every 6 hours as needed for shortness of breath, wheezing or cough 90 mL ctive montelukast (SINGULAIR) 10 MG tablet Indications:Moderate persistent asthma without complicationTake 1 tablet (10 mg) by mouth daily 30 tablet ctive melatonin 5 MG CAPS Indications:Obstructive chronic bronchitis with exacerbation (H)Take 5 mg by mouth at bedtime 90 capsule 310/27/2023Active Multiple Vitamin (DAILY-SHELLEY) TABS Indications:Vitamin D deficiencyTake 1 tablet by mouth daily 30 tablet ctive hydrocortisone (CORTEF) 10 MG tablet Indications:Adrenal insufficiencyTAKE 1 TABLET BY MOUTH EVERY MORNING;TAKE 1/2 TABLET (5MG) BY MOUTH EVERY EVENING 45 tablet ctive senna-docusate (SENEXON-S) 8.6-50 MG tablet Indications:ConstipationTake 1 tablet by mouth every morning 30 tablet ctive guaiFENesin (ROBITUSSIN) 20 mg/mL liquid Take 200 mg by mouth every 4 hours as needed for coughActive B Ofqqdkv-M-Oxphq Acid TABS Take 1 tablet by mouth every morning.Active TRELEGY ELLIPTA 100-62.5-25 MCG/ACT oral inhaler Indications:Chronic obstructive pulmonary disease, unspecified COPD type (H) INHALE 1 PUFF INTO THE LUNGS ONCE DAILY 60 each ctive acetaminophen (TYLENOL) 325 MG tablet Indications:S/P spinal fusion,Back pain, unspecified back location, unspecified back pain laterality, unspecified chronicityTAKE 1 TABLET BY MOUTH EVERY 8 HOURS NEEDED --MAXIMUM OF 4000MG ACETAMINOPHEN IN 24 HOURS- 90 tablet ctive ondansetron (ZOFRAN) 4 MG tablet Indications:Intractable chronic migraine without aura and without status migrainosusTAKE 1 TABLET BY MOUTH EVERY 8 HOURS NEEDED FOR NAUSEA 12 tablet ctive ammonium lactate (AMLACTIN) 12 % external cream Indications:DermatitisApply topically 2 times daily 140 g ctive sodium chloride (OCEAN) 0.65 % nasal spray Indications:Dysfunction of both eustachian tubesNasal rinse x2 before Azelastine nasal spray 480 mL ctive gabapentin (NEURONTIN) 400 MG capsule Indications:Chronic bilateral low back pain with right-sided sciaticaTake 2 capsules (800 mg) by mouth 3 times daily 180 capsule ctive nicotine (NICODERM CQ) 14 MG/24HR 24 hr patch Indications:Tobacco abuse disorderAPPLY 1 PATCH TO CLEAN, DRY, HAIRLESS SKIN ONCE DAILY. REMOVE OLD PATCH BEFORE APPLYING NEW PATCH 28 patch ctive omeprazole (PRILOSEC) [address] capsule Indications:Gastroesophageal reflux disease with esophagitisTAKE 1 CAPSULE BY MOUTH TWICE DAILY - MORNING AND EVENING 180 capsule ctive amiodarone (PACERONE) 200 MG tablet Take 1 tablet (200 mg) by mouth every morning. 90 tablet ctive apixaban ANTICOAGULANT (ELIQUIS ANTICOAGULANT) 5 MG tablet Indications:Paroxysmal atrial fibrillation (H)Take 1 tablet (5 mg) by mouth 2 times daily. 180 tablet ctive sertraline (ZOLOFT) 25 MG tablet Indications:PTSD (post-traumatic stress disorder),AnxietyTAKE 1 TABLET BY MOUTH ONCE DAILY. 30 tablet ctive divalproex sodium extended-release (DEPAKOTE ER) 500 MG 24 hr tablet Indications:Nonintractable epilepsy with complex partial seizures (H), Intractable chronic migraine without aura and without status migrainosusTake 4 tablets (2,000 mg) by mouth at bedtime. 360 tablet ctive galcanezumab-gnlm (EMGALITY) 120 MG/ML injection Indications:Intractable chronic migraine without aura and without status migrainosusInject 1 mL (120 mg) subcutaneously every 28 days. 1 mL ctive rimegepant (NURTEC) 75 MG ODT tablet Indications:Intractable chronic migraine without aura and without status migrainosusTAKE 1 TABLET BY MOUTH NEEDED FOR MIGRAINE HEADACHE. MAX 1 TABLET PER 24 HOUR 8 tablet ctive diclofenac (VOLTAREN) 1 % topical gel Indications:Chronic bilateral low back pain with right-sided sciaticaAPPLY 2 GRAMS TOPICALLY FOUR TIMES DAILY. Bilateral hips 200 g ctive rosuvastatin (CRESTOR) 20 MG tablet Indications:Hyperlipidemia, unspecified hyperlipidemia typeTake 1 tablet (20 mg) by mouth at bedtime. Please make lab appt (LDL) for further refills 30 tablet ctive nicotine (COMMIT) 2 MG lozenge Indications:Tobacco abuse disorderPlace 1 lozenge (2 mg) inside cheek every hour as needed for nicotine withdrawal symptoms. 81 lozenge ctive Calcium Citrate-Vitamin D3 (GNP CALCIUM CITRATE +D3) 315-6.25 MG-MCG TABS Take 1 tablet by mouth 3 times daily.Active potassium chloride mckinley ER (KLOR-CON M10) 10 MEQ CR tablet Indications:HypokalemiaTake 1 tablet (10 mEq) by mouth daily.10/23/2024ctive polyethylene glycol (MIRALAX) 17 GM/Dose powder Indications:Constipation, unspecified constipation typeTake 17 g by mouth daily as needed for constipation.10/23/2024ctive insulin aspart (NOVOLOG FLEXPEN) 100 UNIT/ML pen Indications:Type 2 diabetes mellitus with other specified complication, with long-term current use of insulin (H)Novolog Flexpen Give before meals For Pre-Meal Glucose: 140-189 give 1 unit 190-239 give 2 units 240-289 give 3 units 290-339 give 4 units = or >340 give 5 units10/23/2024ctive insulin aspart (NOVOLOG FLEXPEN) 100 UNIT/ML pen Indications:Type 2 diabetes mellitus with other specified complication, with long-term current use of insulin (H)Novolog Flexpen 3 units with breakfast, lunch and dinner. Hold for premeal glucose <100 10/23/2024ctive insulin pen needle (29G X 12MM) 29G X 12MM miscellaneous Indications:New onset type 2 diabetes mellitus (H)Use pen needles daily or as directed. 100 each 5Active blood glucose (NO BRAND SPECIFIED) test strip Indications:New onset type 2 diabetes mellitus (H)Use to test blood sugar 2 times daily or as directed. 200 strip 5Active blood glucose monitoring (NO BRAND SPECIFIED) meter device kit Indications:New onset type 2 diabetes mellitus (H)Use to test blood sugar 2 times daily or as directed. 1 kit 5Active alcohol swab prep pads Indications:New onset type 2 diabetes mellitus (H)Use to test blood sugar 2 times daily or as directed. 100 each 5Active blood glucose (NO BRAND SPECIFIED) lancets standard Indications:New onset type 2 diabetes mellitus (H)Use to test blood sugar 2 times daily or as directed. 200 each 5Active fluticasone (FLONASE) 50 MCG/ACT nasal spray Indications:Chronic rhinitisUSE 2 SPRAYS IN EACH NOSTRIL ONCE DAILY 16 g 5Active cholecalciferol (VITAMIN D3) 125 mcg (5000 units) capsule Take 125 mcg by mouth daily.Active insulin glargine (LANTUS PEN) 100 UNIT/ML pen Indications:Acute on chronic respiratory failure with hypercapnia (H)Inject 22 Units subcutaneously at bedtime.01/18/2025tive metoprolol tartrate (LOPRESSOR) 25 MG tablet Indications:Acute on chronic respiratory failure with hypercapnia (H)Take 1 tablet (25 mg) by mouth 2 times daily.01/18/2025tive torsemide (DEMADEX) 10 MG tablet Indications:Acute on chronic respiratory failure with hypercapnia (H)Take 1 tablet (10 mg) by mouth daily.01/18/2025tive traMADol 25 MG TABS tablet Indications:Acute on chronic respiratory failure with hypercapnia (H)Take 1 tablet (25 mg) by mouth every 12 hours as needed for moderate pain. 15 tablet 01/18/2025tive calcium carbonate (TUMS) 500 MG chewable tablet Indications:Acute on chronic respiratory failure with hypercapnia (H)Take 1 tablet (500 mg) by mouth 4 times daily as needed for heartburn.01/18/2025tive guaiFENesin-dextromethorphan (ROBITUSSIN DM) 100-10 MG/5ML syrup Indications:Acute on chronic respiratory failure with hypercapnia (H)Take 10 mLs by mouth every 4 hours as needed for cough.01/18/2025tive ipratropium (ATROVENT) 0.02 % neb solution Indications:Acute on chronic respiratory failure with hypercapnia (H)Take 2.5 mLs (0.5 mg) by nebulization 4 times daily.01/18/2025tive levalbuterol (XOPENEX) 1.25 MG/3ML neb solution Indications:Acute on chronic respiratory failure with hypercapnia (H)Take 3 mLs (1.25 mg) by nebulization 4 times daily.01/18/2025tive vitamin D2 (ERGOCALCIFEROL) 74381 units (1250 mcg) capsule Indications:Vitamin D deficiencyTake 1 capsule (50,000 Units) by mouth once a week.01/18/2025tive Dextromethorphan-guaiFENesin (ROBITUSSIN DM PO) Take 10 mLs by mouth.Active tiotropium (SPIRIVA RESPIMAT) 2.5 MCG/ACT inhaler Inhale 2 puffs into the lungs.10/28/2024ctive calcium carbonate (TUMS) 500 MG chewable tablet Take 1 chew tab by mouth 2 times daily.Active Azithromycin (ZITHROMAX PO) Take 500 mg by mouth daily.Active albuterol (PROAIR HFA/PROVENTIL HFA/VENTOLIN HFA) 108 (90 Base) MCG/ACT inhaler Indications:Chronic bronchitis, unspecified chronic bronchitis type (H),Other emphysema (H),COPD exacerbation (H),Acute on chronic respiratory failure with hypercapnia (H),Moderate persistent asthma without complication,H/O nicotine dependence,Paralyzed hemidiaphragmInhale 2 puffs into the lungs every 3 hours as needed for shortness of breath. 1 each 5Active ipratropium - albuterol 0.5 mg/2.5 mg, 3mg,/3 mL (DUONEB) 0.5-2.5 (3) MG/3ML neb solution Indications:Obstructive chronic bronchitis with exacerbation (H),Moderate persistent asthma without complicationTake 1 vial (3 mLs) by nebulization every 4 hours as needed for shortness of breath, wheezing or cough. 180 mL 5Active ipratropium - albuterol 0.5 mg/2.5 mg/3 mL (DUONEB) 0.5-2.5 (3) MG/3ML neb solution Indications:Obstructive chronic bronchitis with exacerbation (H),Moderate persistent asthma without complicationNEBULIZE AND INHALE 1 VIAL BY MOUTH EVERY 4 HOURS NEEDED FOR SHORTNESS OF BREATH, DYSPNEA OR WHEEZE 180 mL Discontinued(Reorder (No AVS)) Active Problems ProblemNoted DateDiagnosed DateSevere persistent asthma without complication 10/28/2025Mild neurocognitive disorder due to multiple /05/2025 Megaloblastic anemia due to vitamin B12 oarsiovhkj34/05/2025OPD exacerbation 01/06/2025New onset type 2 diabetes /28/2024History of pulmonary jzwdulub65/27/2024Opioid overdose, accidental or unintentional, initial nalmuywkg33/20/2024Other acute pulmonary embolism without acute cor pulmonale 05/14/2024trial fibrillation with RVR12/06/2023HCAP (healthcare-associated pneumonia)4Acute on chronic respiratory failure with hypoxia and vkqmfbflcyn65/20/2024cute on chronic respiratory failure with hypercapnia 11/18/2023ombined forms of age-related cataract of both eyes10/15/2023 Congestive heart failure, unspecified HF chronicity, unspecified heart failure type3DNR (do not resuscitate)06/03/2023NI (do not intubate)06/03/2023 Morbid gweoylv33/05/2023COPD on long-term inhaled steroid ualcqxz1007/08/2022Ulcer of right lower extremity with fat layer fkbjrhl6106/03/2022Ulcer of left lower extremity with fat layer bwoohpu2306/03/2022pioid type dependence, continuous use 02/11/2022drenal ateaygzfgfcmy90/17/2022Nicotine dependence, unspecified, werriqlgbwqhg20/17/2022Lymphedema of both lower ssyiptfpyop46/20/2021ortic valve ookfanvo65/17/2021 Overview (04/02/2021): Created by Conversion Replacement Utility updated for latest IMO load Intractable migraine with aura04/02/2021 Overview (04/02/2021): Created by Conversion Replacement Utility updated for latest IMO load Rheumatoid kglrembjw89/09/2020Complex partial seizure (Dysrhythmia grade III left)02/23/2020Osteoporosis without current pathological fracture, unspecified osteoporosis type05/16/2018Secondary adrenal tfggcnqsaggma17/16/2017Paroxysmal atrial mcahvqjukpom55/01/2016Moderate persistent asthma without complication 07/25/2016PTSD (post-traumatic stress disorder)04/09/2016Cervical spondylosis without qakfrilrvs22/31/2016Mood disorder in conditions classified elsewhere 11/07/20154776Tnxwikh40/22/2015Irritable bowel pgkpfoqx62/30/2015Chronic neck pain 07/02/2014Chronic low back pain02/06/2012sthma, moderate persistent, poorly-glsevpgpum35/14/2011icuspid aortic valveHyperlipidemiaDilated aortic root Resolved Problems ProblemNoted DateDiagnosed DateResolved DateRSV mpeyxpfnp39 Nbgpljmcclok49Elevated wkwlosnh26ute iimrhxoxnukeyl48Fall at home, initial dztfhzece91/28/2024 08/18/2025bnormal chest CTGround glass opacity present on imaging of lung/12/20242994Aentcqzhmrd63/20/202410/OVID-19 virus fdtooyfif60ltered mental status, unspecified altered mental status type/12/2022Respiratory failure with hypoxia and hypercapnia, unspecified mvitjmtrrw01/26/202310/12/2022Redness and swelling of lower leg /ommunity acquired bacterial wmnlotgwf43/12/2022 COPD ggnnhusfwsvt34Encephalopathycute respiratory failure with sbbeumc25cute heart failure with preserved ejection wdpnbpii01cute diastolic congestive heart wilbmrj50/12/2022Elevated rshsutmd05/NA (pneumonia) HypoxiaFunctional viwipbzd43/23/2021 04/02/2021Fall, initial xrpopanqt17Need for follow-up by social ncuvrt47cute hypercapnic respiratory pdjhbah3512/03/2019 04/02/2021cute bilateral low back pain with bilateral riehrmrw30/07/2019 12/24/2019S/P spinal wxdqfhx42Hypotension s/p TLIF-SPO L4-5,L5-S1; PISF L4-pelvis (08/07/18); s/p LLIF-PPS L3-4 (11/23/2010) tatus post coronary pllbueqno34 Intractable migraine with aura with status ahnqfgzoett71 Bilateral low back pain with right-sided xyueaknu60Septic shock10/16/4142Qlcsqfbhlqvi74Cervical spine ddiwfkkgp21/08/History of colonic ddguoy77 Overview (12/08/2015): Adenomatous and large hyperplastic. Regular colonoscopy needed. Large polyp 06/2015, next colonoscopy 12/18/2015. Next: Left shoulder pain05/09/SpellsTransient alteration of qvgiiaimh11Convulsions Overview (08/18/2015): Problem list name updated by automated process. Provider to review s/p ACDF C3-4; previous solid fusions C4-5,C5-6,L3-403/ Degenerative disk cmktmlz88astroparesis Shoulder painS/P shoulder mdfktyf71/15/ Shoulder pain08/01/Pain in joint, shoulder tkqxkb1307/11/2008 11/22/2008 Encounters DateTypeDepartmentCare XyiwLpnunbzbaov99/17/2025[facility] [address] [address] Henry Motta MD 11/02/2025[facility] [address] [address] Henry Motta MD 11/02/2025Orders Only [facility] Science and [address] [phone] Grisel Watkins RN Obstructive chronic bronchitis with exacerbation (H); Moderate persistent asthma without yfdsrhakpxss50/16/2025Care Coordination [address] [phone] Estela Davis RN 10/28/2025 2:00 PM CSTOrders Only [facility] Function Testing [address] [place] [address] Chronic bronchitis, unspecified chronic bronchitis type (H); Other emphysema (H); COPD exacerbation (H); Acute on chronic respiratory failure with hypercapnia (H); Moderate persistent asthma without complication; H/O nicotine dependence; Paralyzed hemidiaphragm; Severe persistent asthma without complication (H); Rheumatoid arthritis, involving unspecified site, unspecified whether rheumatoid factor present (H)10/28/2025 11:00 AM CSTOffice Visit [facility] Lung Science and [address] [phone] Henry Motta MD Chronic bronchitis, unspecified chronic bronchitis type (H) (Primary Dx); Other emphysema (H); COPD exacerbation (H); Acute on chronic respiratory failure with hypercapnia (H); Moderate persistent asthma without complication; H/O nicotine dependence; Paralyzed hemidiaphragm; Severe persistent asthma without complication (H); Rheumatoid arthritis, involving unspecified site, unspecified whether rheumatoid factor present (H)10/28/20253116Ypsfyw14/11/2025Results Follow-Up [facility] [address] [address] [place] [phone] Nany Solitario NP 10/26/2025 3:15 PM CSTLab [facility] [address] [phone] NYHA class 3 heart failure with preserved ejection fraction (H)10/26/2025 9:25 AM BLACKTOP SPREADER - 10/26/2025 11:59 PM CSTHospital Encounter [place] [address] [facility] [address] [place] [phone] Nany Solitario NP Discharge Disposition: Home or Self Care10/26/2025 9:25 AM BLACKTOP SPREADER - 10/26/2025 11:59 PM CSTHospital Encounter [place] [address] [facility] [address] [place] [phone] Nany Solitario NP Discharge Disposition: Home or Self Care10/26/2025 9:25 AM BLACKTOP SPREADER - 10/26/2025 11:59 PM CSTHospital Encounter [place] [address] [facility] [address] [place] [address] Nany Solitario NP Discharge Disposition: Home or Self Care10/26/2025 9:25 AM BLACKTOP SPREADER - 10/26/2025 11:59 PM CSTHospital Encounter [place] [address] [facility] [address] [place] [phone] Nany Solitario NP Chest pain; Congestive heart failure, unspecified HF chronicity, unspecified heart failure type (H) Discharge Disposition: Home or Self Care10/26/20253891Nzdlrs03/05/2025Telephone [facility] [address] [facility] [address] [place] [phone] Nany Solitario NP Labs Only10/17/2025Telephone [facility] [address] [facility] [address] [place] [address] Nany Solitario NP 10/12/2025Telephone [facility] [address] [facility] [address] [place] [phone] Nany Solitario NP 10/10/2025MyC Medical Advice [place] [address] [place] [phone] Nany Solitario NP 10/05/2025are Coordination [facility] [address] [place] [phone] Estela Davis RN 09/28/20255744Iqyhev02/26/2025Telephone [address] [place] [phone] Unknown Call Back (CTA scheduling )08/11/2025Telephone [address] [place] [phone] Nany Solitario NP 08/08/2025[address] [phone] Nany Solitario NP from Last 3 Months Immunizations ImmunizationAdministration DatesNext DueCOVID-19 12+ (Pfizer)08/11/2024, 09/24/2023Flu, Ttflofjjyns43/05/2011Influenza (High Dose) Trivalent,PF (Fluzone) 10/08/2024,10/20/2014Influenza (IIV3) PF09/27/2015,11/13/2012,08/20/2011, 11/21/2010,09/12/2008,09/04/2005,10/19/2003Influenza (prior to 2023)10/22/2017 Influenza Vaccine 65+ (Fluzone HD)09/24/2023Influenza Vaccine >6 months,quad, PF 10/28/2022,07/26/2020,12/02/2018,10/20/2016Influenza Vaccine, 6+MO IM (QUADRIVALENT W/PRESERVATIVES)08/20/2019Influenza,INJ,MDCK,PF,Quad >6mo(Flucelvax)08/13/2021[place]antoux Tuberculin Skin Test08/13/2018Pneumo Conj 13-V (2010&after)01/23/2017Pneumococcal 23 plbcif4307/26/2020,10/23/2017TDAP Vaccine (Adacel)12/08/2008TDAP Vaccine (Boostrix)12/22/2019Zoster recombinant adjuvanted (Shingrix)06/11/2019,02/12/2019 Family History Medical HistoryRelationCommentsAlcohol/DrugBrother 1Anxiety DisorderBrother 1 DiabetesBrother 1Vision LossBrother 1Related to diabetesAllergiesBrother 2 Anxiety DisorderBrother 2AsthmaBrother 2Brain CancerBrother 2CancerBrother 2 Other CancerBrother 2Skin CancerBrother 2No Known ProblemsBrother 3Anxiety DisorderBrother 4Anxiety DisorderFatherAsthmaFatherDementiaFatherHeart Failure FatherLeukemiaFatherOther CancerFatherRheumatoid ArthritisFatherCancerMaternal AuntlungAnxiety DisorderMaternal GrandfatherCerebrovascular DiseaseMaternal GrandfatherIschemicGlaucomaMaternal GrandfatherOther CancerMaternal Grandfather Stomach CancerMaternal GrandfatherAnxiety DisorderMaternal GrandmotherCancer Maternal GrandmotherboneDiabetesMaternal GrandmotherGlaucomaMaternal Grandmother MelanomaMaternal GrandmotherCancer as well unclearOsteoporosisMaternal GrandmotherAnxiety DisorderMotherCancerMotherDiabetesMothermarianLung Cancer MotherOther CancerMotherDiabetesOther 1Anxiety DisorderOther 2DiabetesOther 2 GlaucomaPaternal GrandfatherArthritisPaternal GrandmotherRAGlaucomaPaternal GrandmotherAllergiesSister 1AsthmaSister 1Connective Tissue DisorderSister 1 Raynaud'sGenetic DisorderSister 1Cystic fibrosis carrierNeurologic Disorder Sister 1Multiple SclerosisCancerSister 2Genetic DisorderSister 2Cystic fibrosis carrierNeurologic DisorderSister 2chronic headachesSkin CancerSister 2Gynecology Sister 3endometriosisMigrainesSister 3Anxiety DisorderSonDiabetesSonMacular DegenerationNo family hx ofRelationStatusCommentsBrother 1AliveBrother 2Alive Brother 3AliveBrother 4FatherDeceased (Age 72)Maternal AuntAliveMaternal GrandfatherDeceasedMaternal GrandmotherDeceasedMotherDeceased (Age 57)Other 1 Other 2Paternal GrandfatherPaternal GrandmotherDeceasedSister 1AliveSister 2 AliveSister 3AliveSon Social History Tobacco UseTypesPacks/DayYears UsedDateSmoking Tobacco: FormerCigarettes0.151 Started: 11/17/1974Smokeless Tobacco: Never Comments:1-2 cigarettes a da y Alcohol UseStandard Drinks/WeekCommentsNot Currently0 (1 standard drink = 0.6 oz pure alcohol)Holidays, 1 glass on new years.Social Connection and Isolation PanelAnswerDate RecordedFrequency of Communication with Friends and FamilyTwice a week12/13/2019Frequency of Social Gatherings with Friends and FamilyPatient /27/2020Attends Denominational ServicesPatient cddkoowt75/27/2020Active Member of Clubs or FaqtsiwueoquvIn38/27/2020Attends Club or Organization MeetingsPatient dufisaxz72/27/2020Marital StatusLiving with grbfjax8912/13/2019 AUDIT-CAnswerDate RecordedQ1: How often do you have a drink containing alcohol? Never12/13/2019Q2: How many drinks containing alcohol do you have on a typical day when you are drinking?Patient aabddonn93/27/2020Q3: How often do you have six or more drinks on one occasion?Patient xfmzmcfu80/27/2020PHQ-2AnswerDate RecordedPHQ-2 Buwet388[facility] [place] [facility] - Occupational Stress QuestionnaireAnswerDate RecordedFeeling of StressOnly a bbycgd5912/13/2019Exercise Vital SignAnswerDate RecordedDays of Exercise per Week0 [...] in an abandoned building, in an overnight prison, or couch-surfing.)Yes01/14/2025re you worried about losing your [...] have received?Associate degree: occupational, technical, or vocational fkvdedn3912/13/2019CommentsNoSex and Gender InformationValue Date RecordedSex Assigned at BirthNot on fileLegal NkwZoqifu20/04/2012 3:32 AM CSTGender IdentityNot on fileSexual OrientationNot on file Last Filed Vital Signs Vital SignReadingTime TakenCommentsBlood Qihlkniv664/7310/28/2025 11:16 AM BLACKTOP SPREADER Shcpx735610/28/2025 11:16 AM FSHSkegqzdsszo71 ??C (98.6 ??F)01/18/2025 2:19 PM BLACKTOP SPREADER Respiratory Inrl422701/18/2025 2:19 PM CSTOxygen Ioivbftebj62%10/28/2025 11:16 AM CSTRAInhaled Oxygen Concentration--Jjyhcp83.1 kg (214 lb)10/28/2025 11:16 AM BLACKTOP SPREADER Ximhjs765.5 cm (5' 2)10/28/2025 11:16 AM CSTBody Mass Index39.14112/29/2024 11:16 AM BLACKTOP SPREADER Plan of Treatment DateTypeDepartmentCare Team (Latest Contact Info)Kqmktzwcehy96/22/2025 2:00 PM CSTOffice Visit [facility] [place] [address] [place] [phone] Nany Solitario NP [address] [place] [address] 12/27/2025 11:00 AM CSTOffice Visit [facility] [place] [address] [place] [phone] Nany Solitario NP [address] [place] [id number] [place] [address] [address] [facility] [address] [place], [place] [address] 04/28/2026 11:00 AM CDTOffice Visit [facility] [place] [address] [place] [address] Henry Motta MD [address] [facility] [address] [place] [address] Health MaintenanceDue DateLast DoneCommentsCOPD ACTION PLAN1957CT VXWXENXITPVZ1957DIABETIC FOOT EXAM1957HF ACTION PLAN1957 PAMLJKVVFEWK1957MIGRAINE ACTION PLAN1957sDNA (Cologuard)1957 HEPATITIS A VACCINE (1 of 2 - Risk 2-dose series)1976RSV VACCINE (1 - Risk 50-74 years 1-dose series)2007FLEX SIGPHQ-9112/07/2019 10/07/2019, 05/31/2019, 02/23/2019, Additional history existsCOLONOSCOPY /, 12/18/2015, 07/10/2015, Additional history exists COLORECTAL CANCER SUZFEAHYV13/25/2024NNUAL REVIEW OF HM MDRAFI1109/24/2024 09/24/2023MEDICARE ANNUAL WELLNESS VISIT, 08/09/2022FIT , 09/02/2022A1C/, 10/14/2024EYE EXAM , 10/15/2023, 09/18/2023, Additional history existsFALL RISK ZAGJYQALHC78, 09/18/2023OVID-19 VACCINE ( season) /, 08/11/2024, 09/24/2023, Additional history exists PNEUMOCOCCAL VACCINE 50+ YEARS (3 of 3 - PCV20 or PCV21)/07/2020, 10/23/2017, 01/23/2017GAD UFMDYZNASE07, 10/15/2023, 10/07/2019, Additional history existsMAMMO SSAIPMEQR80, 10/21/2023, 12/22/2019, Additional history symewdKEJEH14/14/202602/, 08/08/2023, 05/06/2022, Additional history wvztrzDNJ76/, 10/16/2024, 10/14/2024, Additional history ukifbpRNZ20, 08/02/2025, 01/14/2025, Additional history existsLUNG CANCER JDCGWDUPS19/12/2026 04/28/2025, 01/06/2025, 09/05/2024, Additional history tucvgsKKW47/16/2026 08/02/2025, 01/14/2025, 01/12/2025, Additional history existsDTAP/TDAP/TD VACCINE (3 - Td or Tdap), 12/08/2008DVANCE CARE PLANNING , 09/15/2024, 05/04/2024, Additional history existsDEXA 41, 08/23/2019, 05/12/2018, Additional history existsHEPATITIS C FOBZYIRTULxeqaidlq12/01/2016, 06/14/2016ZOSTER DNTSVCODdqqragjg34/26/2019, 02/12/20192488PIXSlzuiyunmbbo87/09/2020, 12/19/2010TSH W/FREE T4 REFLEXCompleted 10/14/2024, 09/05/2024, 12/07/2023, Additional history existsINFLUENZA VACCINE Lezvaljsh73/22/2025, 10/08/2024, 09/24/2023, Additional history existsSPIROMETRY Zwgmedxht30/12/2025, 10/28/2025, 06/29/2025, Additional history existsHPV VACCINE (No Doses Required)CompletedMENINGITIS VACCINEAged OutNo longer eligible based on patient's age to complete this topic Medical Devices ImplantedTypeAreaManufacturerDevice IdentifierShelf Expiration DateModel / Serial / LotGraft Bone Crush Canc 30ml [id number] Implanted:Qty: 1 on 08/07/2018 [facility]/BiologicN/A: Spine LumbarMUSCULOSKELETAL [id number] / [id number] / Graft Bone Magnifuse 9zsm16aa [id number] Implanted:Qty: 1 on 08/07/2018 by [facility]/Tissue/BiologicN/A: Spine LumbarMEDTRONIC INC01/12/[id number] / [id number] / Graft Bone Infuse Bmp Med [id number] Implanted:Qty: 1 on 06/21/2019 by [facility]/Tissue/BiologicN/A: Spine LumbarMEDTRONIC, INC-DANEK07/17/[id number] / [id number] / [id number] Bone Infuse Bmp Sm [id number] Implanted:Qty: 1 on 06/28/2019 by [facility]/Tissue/BiologicN/A: Spine LumbarMEDTRONIC, INC-DANEK07/17/66256610635 / [id number] / [id number] Bone Crush Canc 30ml [id number] Implanted:Qty: 1 on 06/28/2019 by [facility]/Tissue/BiologicN/A: Spine LumbarMUSCULOSKELETAL [id number] / [id number] / Graft Bone Crush Canc 30ml [id number] Implanted:Qty: 1 on 06/28/2019 by [facility]/Tissue/BiologicN/A: Spine LumbarMUSCULOSKELETAL [id number] / [id number] / Bone Cement Kyphx Hv-R C01a Implanted:Qty: 1 on 06/21/2019 by [facility] CenterCement, BoneN/A: Spine Lumbar KENPAA5311/16/2021C01A / / [id number] Cement Kyphx Hv-R C01a Implanted:Qty: 1 on 06/28/2019 by [facility] CenterCement, BoneN/A: Spine Lumbar GWZNHN9811/16/2021C01A / / [id number] Cc60wf 26.0 [place] Uv Aspheric Biconvex Iol - [id number] Implanted:Qty: 1 on 06/03/2024 by Del[facility] at [facility] MinneapolisLens/Eye ImplantRight: EyeALCON LABS07/20/2027CC60WF.2600 / [id number] / Lens Cc60wf 24.5 [place] Uv Aspheric Biconvex Iol - [id number] Implanted:Qty: 1 on 06/17/2024 by Delonte Moody MD at [facility]/Eye ImplantLeft: EyeALCON LABS06/14/2027CC60WF.2450 / [id number] / Imp Scr Medt 5.5/6.0mm Solera 7.5x40mm Ma [id number] Implanted:Qty: 2 on 08/07/2018 by [facility] CenterMetallic Hardware/AnchorN/A: Spine LumbarMEDTRONIC [id number] / / [id number] Duel Head Screw 6.5mm X 50mm Implanted:Qty: 1 on 06/21/2019 by [facility] at [facility] CenterMetallic Hardware/AnchorN/A: Spine Ntmndh70/30/[id number] / / [id number] Duel Head Screw 7.5mm X 50mm Implanted:Qty: 1 on 06/21/2019 by [facility] at [facility] CenterMetallic Hardware/AnchorN/A: Spine Clpfwu21/21/[id number] / / [id number] Interbody Cage 12mm X 22mm X 6deg Implanted:Qty: 2 on 06/21/2019 by [facility] at [facility] CenterMetallic Hardware/AnchorN/A: Spine Cndqmo00/14/[id number] / / [id number] Scr Medt 5.5/6.0mm Solera 6.5x50mm Ma [id number] Implanted:Qty: 1 on 06/21/2019 by [facility] Center[facility] Hard[facility]/AnchorN/A: Spine LumbarMEDTRONIC [id number] / / [id number] Scr Set Medt Solera Break Off 5.5mm Ti [id number] Implanted:Qty: 14 on 06/28/2019 by [facility] at [facility] CenterMet[facility] Hardware/AnchorN/A: Spine LumbarMEDTRONIC [id number] / / [id number] Aristeo Medt Solera Tial Str Lined 5.9h309yh [id number] Implanted:Qty: 2 on 06/28/2019 by [facility]Met[facility] Hard[facility]/AnchorN/A: Spine LumbarMEDTRONIC [id number] / / [id number] Spacer Medt Cervical Anatomic Peek Ptc 93t19s2du [id number] Implanted:Qty: 1 on 06/24/2016 by [facility] CenterRight: Spine CervicalMEDTRONIC INC04/18/13884329644 / / [id number] Plate Cerv Medt Zevo 19mm 1 Lvl [id number] Implanted:Qty: 1 on 06/24/2016 by [facility] CenterRight: Spine CervicalMEDTRONIC [id number] / / Imp Scr Medt Zevo 3.5x15mm St Ny [id number] Implanted:Qty: 3 on 06/24/2016 by [facility] CenterRight: Spine CervicalMEDTRONIC [id number] / / Imp Scr Medt Zevo 4.0x15mm St Ny [id number] Implanted:Qty: 1 on 06/24/2016 by [facility] CenterRight: Spine CervicalMEDTRONIC [id number] / / Interbody Fusion Device Implanted:Qty: 2 on 08/07/2018 by [facility] CenterN/A: Spine Edfyqd2710/22/2025 [id number] / / 40EVVivigen Formable Cellular Bone Matrix Implanted:Qty: 1 on 08/07/2018 by [facility] CenterN/A: Spine LumbarLIFENET 11/22/20187441TN-9177-636 / [id number] / Interbody Fusion Device 14mm X 22mm X 12deg Implanted:Qty: 2 on 08/07/2018 by [facility] CenterN/A: Spine LumbarMEDTRONIC INC 03/18/35480224406 / / [id number] 9.5 X 90 Mas Implanted:Qty: 2 on 08/07/2018 by [facility] at [facility] CenterN/A: Spine [id number] / / [id number] X 45mm Dual Aristeo Multi-Axial Screw Implanted:Qty: 2 on 06/21/2019 by [facility]hael [facility] at [facility] CenterN/A: Spine LumbarMEDTRONIC [id number] / / [id number] X 50mm Fenestrated Screw Implanted:Qty: 1 on 06/21/2019 by [facility]hael [facility] at [facility] CenterN/A: Spine LumbarMEDTRONIC [id number] / / [id number] X 45mm Fenestrated Screw Implanted:Qty: 4 on 06/28/2019 by [facility]hael [facility]N/A: Spine LumbarMEDTRONIC [id number] / / [id number] X 22mm X 0deg Interbody Fusion Device Implanted:Qty: 1 on 06/28/2019 by [facility]N/A: Spine LumbarMEDTRONIC 06/24/[id number] / / [id number]iaonCbblca IdentifierShelf Expiration DateModel / Serial / LotImp Scr Set Medt Solera Break Off 5.5mm Ti [id number] Implanted:Qty: 8 on 08/07/2018 by Raphael Teresa MD at [facility] Explanted:Qty: 8 on 06/21/2019 by [facility]hael [facility] at [facility] CenterMetallic Hardware/AnchorMEDTRONIC [id number] / / [id number] Scr Medt 5.5/6.0mm Solera 6.5x45mm Ma [id number] Implanted:Qty: 1 on 08/07/2018 by Raphael Teresa MD at [facility] Explanted:Qty: 1 on 06/21/2019 by [facility]hael [facility] at [facility] CenterMet[facility] Hardware/AnchorN/A: Spine LumbarMEDTRONIC [id number] / / [id number] Scr Medt 5.5/6.0mm Solera 6.5x50mm Ma [id number] Implanted:Qty: 1 on 08/07/2018 by Raphael Teresa MD at [facility] Explanted:Qty: 1 on 06/21/2019 by Raphael [facility] at [facility] CenterMet[facility] Hardware/AnchorN/A: Spine LumbarMEDTRONIC [id number] / / [id number] Scr Medt 5.5/6.0mm Solera 7.5x45mm Ma [id number] Implanted:Qty: 2 on 08/07/2018 by Raphael Teresa MD at [facility] Explanted:Qty: 2 on 06/21/2019 by Raphael [facility] at [facility] CenterMet[facility] Hardware/AnchorN/A: Spine LumbarMEDTRONIC [id number] / / [id number] Aristeo Medt Solera Cvd 5.5x90mm Ti [id number] Implanted:Qty: 2 on 08/07/2018 by Raphael Teresa MD at [facility] Explanted:Qty: 2 on 06/21/2019 [facility]/AnchorN/A: Spine LumbarMEDTRONIC [id number] / / [id number] Scr Set Medt Solera Break Off 5.5mm Ti [id number] Explanted:Qty: 1 on 06/21/2019 [facility]Met[facility]/AnchorMEDTRONIC [id number] / / [id number] Aristeo Medt Solera Lined 5.6k935nf Chr [id number] Implanted:Qty: 1 on 06/21/2019 by Raphael eTresa MD at [facility] Explanted:Qty: 1 on 06/28/2019 by [facility]hael [facility]/AnchorN/A: Spine LumbarMEDTRONIC [id number] / / [id number] Scr Set Medt Solera Break Off 5.5mm Ti [id number] Implanted:Qty: 14 on 06/21/2019 by Raphael Teresa MD at [facility] Explanted:Qty: 14 on 06/28/2019 by [facility]hael [facility]Met[facility] Hardware/AnchorN/A: Spine LumbarMEDTRONIC [id number] / / [id number] Plate, 6 Screws Explanted Explanted:Qty: 7 on 06/24/2016 by [facility] CenterRight: Spine CervicalImp Scr Medt Zevo 3.5x15mm St Ny [id number] Explanted:Qty: 1 on 06/24/2016 by [facility]Right: Spine CervicalMEDTRONIC [id number] / / Procedures Procedure NamePriorityDate/TimeAssociated DiagnosisCommentsPFT GENERAL LAB WDXNDJYFwiizhi03/12/2025 2:41 PM BLACKTOP SPREADER Chronic bronchitis, unspecified chronic bronchitis type (H) Other emphysema (H) COPD exacerbation (H) Acute on chronic respiratory failure with hypercapnia (H) Moderate persistent asthma without complication H/O nicotine dependence Paralyzed hemidiaphragm Severe persistent asthma without complication (H) Rheumatoid arthritis, involving unspecified site, unspecified whether rheumatoid factor present (H) [place] PULMONARY STRESS WFLUTqitmys89/12/2025 2:35 PM BLACKTOP SPREADER Chronic bronchitis, unspecified chronic bronchitis type (H) Other emphysema (H) COPD exacerbation (H) Acute on chronic respiratory failure with hypercapnia (H) Moderate persistent asthma without complication H/O nicotine dependence Paralyzed hemidiaphragm Severe persistent asthma without complication (H) Rheumatoid arthritis, involving unspecified site, unspecified whether rheumatoid factor present (H) 6 MINUTE WALK LHCDNhvwgni19/12/2025 Chronic bronchitis, unspecified chronic bronchitis type (H) Other emphysema (H) COPD exacerbation (H) Acute on chronic respiratory failure with hypercapnia (H) Moderate persistent asthma without complication H/O nicotine dependence Paralyzed hemidiaphragm Severe persistent asthma without complication (H) Rheumatoid arthritis, involving unspecified site, unspecified whether rheumatoid factor present (H) ZIO PATCH MAIL VHXFzjybbj75/10/2025 4:37 PM BLACKTOP SPREADER Paroxysmal atrial fibrillation (H) NM MPI WITH JBELXFXBAihgefi35/10/2025 11:57 AM BLACKTOP SPREADER Chest pain Congestive heart failure, unspecified HF chronicity, unspecified heart failure type (H) NT-CPPZAEGfljrvo54/10/2025 9:18 AM BLACKTOP SPREADER NYHA class 3 heart failure with preserved ejection fraction (H) BASIC METABOLIC RTXDLUxrhhod90/10/2025 9:18 AM BLACKTOP SPREADER NYHA class 3 heart failure with preserved ejection fraction (H) CBC WITH DZGLLUARIDfrnbxj12/16/2025 10:[address] CHEST PULMONARY EMBOLISM W QNLGKWQAOVOS97/20/2025 9:02 PM BLACKTOP SPREADER COMPREHENSIVE METABOLIC GQZDJXPLW30/20/2025 7:14 PM BLACKTOP SPREADER LIPID ZHDPUGCSpzvbxs81/14/2025 11:48 AM BLACKTOP SPREADER New onset type 2 diabetes mellitus (H) HEMOGLOBIN U5QVagamgg59/14/2025 11:48 AM BLACKTOP SPREADER New onset type 2 diabetes mellitus (H) MA SCREENING BILATERAL W/ JNPFTvxbbfn30/17/2025 9:49 AM BLACKTOP SPREADER Visit for screening mammogram TSH WITH FREE T4 REFLEXAdd-On10/14/2024 6:30 PM BLACKTOP SPREADER OCCULT BLOOD ZHCGPBzjsghd39/24/2024 8:45 AM BLACKTOP SPREADER PAP IMAGED THIN LAYER INQGYAGtkkhjy09/09/2020 5:05 PM CDT Cervical cancer screening DX BONE NDFXBMNLnofcyc51/07/2019 2:00 PM CDT Age-related osteoporosis with current pathological fracture, sequela REICDCLBLQQWixsfyu84/18/2018 2:21 PM CDT HEPATITIS C CWKGMSLLPejjuok50/01/2016 3:50 AM BLACKTOP SPREADER Cardiogenic shock (H) FLEXIBLE RZFGXZFHLSRWMDuiyqaz53/15/2006 9:10 AM CDT from Last 3 Months or Most Recently Relevant to Health Maintenance Results * General PFT Lab (Please always keep checked) (10/28/2025 2:41 PM BLACKTOP SPREADER)Component ValueRef RangeTest MethodAnalysis TimePerformed AtPathologist Signature FIO2-Pre21.00%10/28/2025 2:41 PM CSTBREEZE PFTAnatomical RegionLaterality ModalityOtherSpecimen (Source)Anatomical Location / LateralityCollection Method / VolumeCollection TimeReceived Time10/28/2025 2:41 PM BLACKTOP SPREADER Narrative 10/28/2025 2:41 PM BLACKTOP SPREADER 6MWT: ??Patient self-propelled their own wheelchair. There is significant desaturation but no hypoxemia on RA or on 2L/m oxygen. This Completed, Posted and Locked interpretation has been electronically signed by Tamiacurtis Marquez on 10/31/2025 at 4:04 PM. Authorizing ProviderResult TypeResult StatusDavid [facility] [place] MDPFT ORDERABLESFinal Result * 6 minute walk test (10/28/2025)ComponentValueRef RangeTest MethodAnalysis Time Performed AtPathologist Signature6 min walk (FT)801,012 ft6 Min Walk (M)56737 mAnatomical RegionLateralityModalityOther Narrative Authorizing ProviderResult TypeResult StatusDavid [facility] MDPFT ORDERABLESFinal Result * ZIO PATCH MAIL OUT (10/26/2025 4:37 PM BLACKTOP SPREADER)ComponentValueRef RangeTest Method Analysis TimePerformed AtPathologist SignatureZio Prelim ResultsPatient had a min HR of 46 bpm, [...] atrial activity making definitive diagnosis difficult to ascertain.CARDIOLOGY RESULTS Anatomical RegionLateralityModalityOtherSpecimen (Source)Anatomical Location / LateralityCollection Method / VolumeCollection TimeReceived Time10/26/2025 4:37 PM BLACKTOP SPREADER Narrative 10/27/2025 12:24 PM BLACKTOP SPREADER Analysis time: 12 days 6 hours Ectopics: Supraventricular ectopies: Rare,<1% Ventricular ectopies: Rare,<1% Predominant underlying rhythm was Sinus Rhythm with an average heart rate of 62 bpm. ??First-degree AV block was present. Atrial fibrillation occurred, 15% burden, with heart rate ranging from 53-154 bpm with an average of 85 bpm. ??The longest episode lasted 1 day 23 hours with an average heart rate of 85 bpm. 25 runs of supraventricular tachycardia occurred, longest lasting of 21.8 seconds. No patient triggered events. Authorizing ProviderResult TypeResult StatusElizabeMarymount Hospital CARDIAC SERVICES ORDERABLESFinal Result * NM Lexiscan stress test (nuc card) (10/26/2025 11:57 AM BLACKTOP SPREADER)ComponentValueRef RangeTest MethodAnalysis TimePerformed AtPathologist SignatureTarget HR152 RADIANTBaseline Systolic GN289OCZPAJTSvbgbtlq Diastolic FP45HLFRGVJWiob Stress Systolic PA764DVPYJDFPypx Stress Diastolic CB35ROTOCQOXpfmqkuc QN08ketKADBBKD Max VO40SGVCGJGHld Predicted HR53%RADIANTRate Pressure Product8,800.0RADIANT Left Ventricular EF69%RADIANTAnatomical RegionLateralityModalityChestNuclear MedicineSpecimen (Source)Anatomical Location / LateralityCollection Method / VolumeCollection TimeReceived Time Narrative 10/26/2025 2:26 PM BLACKTOP SPREADER The nuclear stress test is negative for [...] motion is normal. Authorizing ProviderResult TypeResult StatusElizabeth [facility] ORDERABLES Final Result * NT-proBNP (10/26/2025 9:18 AM BLACKTOP SPREADER)ComponentValueRef RangeTest MethodAnalysis TimePerformed AtPathologist SignatureNT-trfYOD9297 - 353 pg/mL10/26/2025 11:52 AM [facility]ATORYComment: Starting on 03/23/2025, [facility] laboratory began flagging abnormal values for plasma [...] be interpreted with the updated reference intervals. [facility]'s Pediatric (boys and girls) Reference Ranges in pg/mL * 0 up to 3 days: ??0 - 75037 3 days up to 1 month: ??0 [...] For adult chronic CHF patients according to [place] [employer] (NYHA) Functional Class, themean NT-proBNP concentration is as following (5th and 95th percentile values respectively displayedin parentheses): Class I: 1016 pg/mL (33-3410) Class II: 1666 pg/mL (103-6567) Class III: 3029 pg/mL (126-40680) Class IV: 3465 pg/mL (148-50514) Clinical thresholds for acute (emergency department) settings: [...] increased body mass index. * References: (1) Clot Mckeon et al.?? Pediatr Cardiol 30:3-8, 2008. Specimen (Source)Anatomical Location / LateralityCollection Method / Volume Collection TimeReceived TimeBloodSTRUCTURE OF RIGHT UPPER LIMB / Unknown Venipuncture / Pksdtfk2310/26/2025 9:18 AM CST10/26/2025 9:19 AM BLACKTOP SPREADER Narrative Authorizing ProviderResult TypeResult StatusElizabeth Altaf NPLAB - BLOOD ORDERABLESFinal ResultPerforming OrganizationAddressCity/State/ZIP CodePhone Number LABORATORY [facility] [address] floor, [address] [place] [address], [facility] [phone] * (ABNORMAL) Basic metabolic panel (10/26/2025 9:18 AM BLACKTOP SPREADER)ComponentValueRef RangeTest MethodAnalysis TimePerformed AtPathologist UkgzobvosTpjaam789688 - 145 mmol/L112/27/2024 11:52 AM [facility] LABORATORYPotassium4.53.4 - 5.3 mmol/L 10/26/2025 11:52 AM [facility] GPPGQOUDILTgxcnrqc30(L)98 - 107 mmol/L112/27/2024 11:52 AM [facility] LABORATORYCarbon Dioxide (CO2)33(H)22 - 29 mmol/L112/27/2024 11:52 AM [facility] LABORATORYAnion Hlk807 - 15 mmol/L112/27/2024 11:52 AM [facility] LABORATORYUrea Sycnphkb74.98.0 - 23.0 mg/dL10/26/2025 11:52 AM [facility] LABORATORYCreatinine1.01(H)0.51 - 0.95 mg/dL10/26/2025 11:52 AM [facility] LABORATORYGFR Lvdtokjw14(L)>60 mL/min/1.89l32810/26/2025 11:52 AM [facility] LABORATORYComment:eGFR calculated using 2020 CKD-EPI equation.Calcium9.88.8 - 10.4 mg/dL10/26/2025 11:52 AM [facility] DEXVYYRUMZQokhvde886(H)70 - 99 mg/dL 10/26/2025 11:52 AM [facility] LABORATORYSpecimen (Source)Anatomical Location / LateralityCollection Method / VolumeCollection TimeReceived TimeBloodSTRUCTURE OF RIGHT UPPER LIMB / UnknownVenipuncture / Tzbfych8510/26/2025 9:18 AM BLACKTOP SPREADER 10/26/2025 9:19 AM [facility] Narrative Authorizing ProviderResult TypeResult StatusElizabeth Altaf NPLAB - BLOOD ORDERABLESFinal ResultPerforming OrganizationAddressCity/State/ZIP CodePhone Number LABORATORY [facility] [address], [address] [place] [address], [place] [phone] * (ABNORMAL) CBC with platelets (08/02/2025 10:34 AM CDT)ComponentValueRef Range Test MethodAnalysis TimePerformed AtPathologist SignatureWBC Count (External) 6.04.5 - 11.0 thou/cu mmLABDE INTERFACERBC Count (External)4.204.00 - 5.20 mil/cu mmLABDE INTERFACEHemoglobin (External)11.8(L)12.0 - 16.0 g/dLLABDE INTERFACEHematocrit (External)39.233.0 - 51.0 %LABDE INTERFACEMCV (External)93 80 - 100 fLLABDE INTERFACEMCH (External)28.126.0 - 34.0 pgLABDE INTERFACEMCHC (External)30.1(L)32.0 - 36.0 g/dLLABDE INTERFACERDW (External)15.6(H)11.5 - 15.5 %LABDE INTERFACEPlatelet Count (External)799610 - 440 thou/cu mmLABDE INTERFACESpecimen (Source)Anatomical Location / LateralityCollection Method / VolumeCollection TimeReceived TimeBloodBLOOD SPECIMEN / Edqmglb0308/02/2025 10:34 AM CDT Narrative MARTHACARLITA PFT - 08/05/2025 2:12 PM CDT Verified by Betsy Gaspar on 08/05/2025. Authorizing ProviderResult TypeResult StatusVirginia Lara APRN CNPLAB - BLOOD ORDERABLESEdited Result - FinalPerforming OrganizationAddressCity/State/ZIP Code Phone Number BRECARLITA PFT LABDE INTERFACE * CT Chest Pulmonary Embolism w Contrast (01/06/2025 9:02 PM BLACKTOP SPREADER)Anatomical RegionLateralityModalityChest, SUBRAD CT BODY, UMP CT CHESTComputed Tomography Specimen (Source)Anatomical Location / LateralityCollection Method / Volume Collection TimeReceived Time01/06/2025 9:02 PM BLACKTOP SPREADER Impressions 01/06/2025 9:17 PM BLACKTOP SPREADER IMPRESSION: 1. ??No acute pulmonary embolism. 2. ??Multifocal subsegmental peripheral opacities in the bases consistent with mixed atelectasis and inflammation and peripheral centrilobular inflammatory nodules in the upper lobes. 3. ??Mildly enlarged mediastinal lymph nodes, likely reactive nodes in the setting of #2. Narrative 01/06/2025 9:17 PM BLACKTOP SPREADER EXAM: CT CHEST PULMONARY EMBOLISM W CONTRAST LOCATION: [facility] DATE: 01/06/2025 INDICATION: fall, hypoxic respiratory failure, cough COMPARISON: CT pulmonary angiogram 09/05/2024 TECHNIQUE: CT chest pulmonary angiogram during arterial phase injection of IV contrast. Multiplanarreformats and MIP reconstructions were performed. Dose reduction techniques were used. CONTRAST: 71 mL Isovue 370 FINDINGS: ANGIOGRAM CHEST: Main pulmonary artery is normal in size measuring 3.1 cm in diameter. There are nolow-attenuation pulmonary artery filling defects. 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 Mild fusiform enlargement of the mid ascending aorta measuring up to 4.1 cm in diameter. Minimal plaque in the descending thoracic aorta. LUNGS AND PLEURA: Basilar peripheral opacities are present which are mostly bandlike near diaphragmatic or costal pleura consistent with atelectasis. There is also mixed atelectasis and inflammation focally at around the left hilum and in the right middle lobe adjacent to the major fissure. There are small clusters of peripheral centrilobular inflammatory nodules in the right upper lobe along the interlobar fissures and left upper lobe along the lateral and anterior costal pleura. Trachea and mainstem airways are patent. MEDIASTINUM: Moderately enlarged left atrium. Cardiac ventricles are normal in size. No pericardialeffusion. Mildly enlarged, reactive subcarinal, AP window and lower paratracheal nodes are present.Esophagus is decompressed. CORONARY ARTERY CALCIFICATION: Mild. UPPER ABDOMEN: Prior cholecystectomy. MUSCULOSKELETAL: Radiopaque cement is present within T12, L1, and L2. There are paraspinous rods and pedicle screws transfixing T12 through the imaged lumbar spine. There are small thoracic and moderate cervical spine degenerative osteophytes. Procedure Note Mango Mccarty MD - 01/06/2025 EXAM: CT CHEST PULMONARY EMBOLISM W CONTRAST LOCATION: [facility] DATE: 01/06/2025 INDICATION: fall, hypoxic respiratory failure, cough COMPARISON: CT pulmonary angiogram 09/05/2024 TECHNIQUE: CT chest pulmonary angiogram during arterial phase injection ofIV contrast. Multiplanar reformats and MIP reconstructions were performed.Dose reduction techniques were used. CONTRAST: 71 mL Isovue 370 FINDINGS: ANGIOGRAM CHEST: Main pulmonary artery is normal in size measuring 3.1 cmin diameter. There are no low-attenuation pulmonary artery fillingdefects. There is a high attenuation filling defect within the segmentalbranch pulmonary artery to the medial basal right lower lobe (series 5, image 160) consistent with embolizedcement from prior vertebroplasty and unchanged. Mild fusiform enlargementof the mid ascending aorta measuring up to 4.1 cm in diameter. Minimalplaque in the descending thoracic aorta. LUNGS AND PLEURA: Basilar peripheral opacities are present which aremostly bandlike near diaphragmatic or costal pleura consistent withatelectasis. There is also mixed atelectasis and inflammation focally ataround the left hilum and in the right middle lobe adjacent to the major fissure. There are small clusters ofperipheral centrilobular inflammatory nodules in the right upper lobealong the interlobar fissures and left upper lobe along the lateral andanterior costal pleura. Trachea and mainstem airways are patent. MEDIASTINUM: Moderately enlarged left atrium. Cardiac ventricles arenormal in size. No pericardial effusion. Mildly enlarged, reactivesubcarinal, AP window and lower paratracheal nodes are present. Esophagusis decompressed. CORONARY ARTERY CALCIFICATION: Mild. UPPER ABDOMEN: Prior cholecystectomy. MUSCULOSKELETAL: Radiopaque cement is present within T12, L1, and L2.There are paraspinous rods and pedicle screws transfixing T12 through theimaged lumbar spine. There are small thoracic and moderate cervical spinedegenerative osteophytes. IMPRESSION: 1. No acute pulmonary embolism. 2. Multifocal subsegmental peripheral opacities in the bases consistentwith mixed atelectasis and inflammation and peripheral centrilobularinflammatory nodules in the upper lobes. 3. Mildly enlarged mediastinal lymph nodes, likely reactive nodes in thesetting of #2. Authorizing ProviderResult TypeResult StatusRykylie Pradhan [facility] ORDERABLES Final Result * (ABNORMAL) Comprehensive metabolic panel (01/06/2025 7:14 PM BLACKTOP SPREADER)Component ValueRef RangeTest MethodAnalysis TimePerformed AtPathologist SignatureSodium 518207 - 145 mmol/L01/06/2025 7:37 PM CSTSH LABORATORYPotassium4.43.4 - 5.3 mmol/L01/06/2025 7:37 PM CST[facility] LABORATORYCarbon Dioxide (CO2)34(H)22 - 29 mmol/L01/06/2025 7:37 PM C[facility] LABORATORYAnion Asb207 - 15 mmol/L01/06/2025 7:37 PM C[facility] LABORATORYUrea Wknxljhh36.58.0 - 23.0 mg/dL01/06/2025 7:37 PM [facility] LABORATORYCreatinine1.03(H)0.51 - 0.95 mg/dL01/06/2025 7:37 PM CST[facility] LABORATORYGFR Ylfmpbpa09(L)>60 mL/min/1.39q46101/06/2025 7:37 PM CSTSH LABORATORYComment:eGFR calculated using 2020 CKD-EPI equation.Calcium9.78.8 - 10.4 mg/dL01/06/2025 7:37 PM CST[facility] HXPIYBJZLEEvpdnhwl4787 - 107 mmol/L 01/06/2025 7:37 PM CST[facility] TKLCAIYKRCWoebxxq2894 - 99 mg/dL01/06/2025 7:37 PM CST LABORATORYAlkaline Huaopfetnun01908 - 150 U/L01/06/2025 7:37 PM CST[facility] VTXSRVULNTBDO124 - 45 U/L01/06/2025 7:37 PM CST[facility] RNYRVVQTTCXFX531 - 50 U/L 01/06/2025 7:37 PM [facility] LABORATORYProtein Total7.46.4 - 8.3 g/dL01/06/2025 7:37 PM [facility] LABORATORYAlbumin3.73.5 - 5.2 g/dL01/06/2025 7:37 PM [facility] LABORATORYBilirubin Total0.2<=1.2 mg/dL01/06/2025 7:37 PM [facility] Specimen (Source)Anatomical Location / LateralityCollection Method / Volume Collection TimeReceived TimeBloodBLOOD SPECIMEN / UnknownVenipuncture / Icwqwgp9401/06/2025 7:14 PM CST01/06/2025 7:17 PM BLACKTOP SPREADER Narrative Authorizing ProviderResult TypeResult StatusEladio Pradhan MDLAB - BLOOD ORDERABLESFinal ResultPerforming OrganizationAddressCity/State/ZIP CodePhone Number LABORATORY [facility] [address] floor, [address] [place] [address] [phone] * Lipid Profile NON-FASTING (12/31/2024 11:48 AM BLACKTOP SPREADER)ComponentValueRef RangeTest MethodAnalysis TimePerformed AtPathologist EryhsuybeHxquoudlxuk687<200 mg/dL 12/31/2024 12:15 PM [facility] LABORATORY - CORE IRJFmehdqocridqv77<150 mg/dL 12/31/2024 12:15 PM [facility] - CORE LABDirect Measure HDL78>=50 mg/dL12/31/2024 12:15 PM [facility] - CORE LABLDL Cholesterol Thvrphivru81<100 mg/dL12/31/2024 12:15 PM [facility] - CORE LABNon HDL Lvmopxoevxg66<130 mg/dL12/31/2024 12:15 PM [facility] - CORE LAB Patient Fasting > 8hrs?No12/31/2024 12:15 PM [facility] - CORE LAB Specimen (Source)Anatomical Location / LateralityCollection Method / Volume Collection TimeReceived TimeBloodSTRUCTURE OF RIGHT UPPER LIMB / Unknown Venipuncture / Kmqvcrq2812/31/2024 11:48 AM CST12/31/2024 11:49 AM BLACKTOP SPREADER Narrative [facility] - CORE LAB - 12/31/2024 12:15 PM BLACKTOP SPREADER Cholesterol Desirable: < 200 mg/dL Borderline High: 200 - 239 mg/dL High: >= 240 mg/dL Triglycerides Normal: < 150 mg/dL Borderline High: 150 - 199 mg/dL High: 200-499 mg/dL Very High: >= 500 mg/dL Direct Measure HDL Female: >= 50 mg/dL Male: >= 40 mg/dL LDL Cholesterol Desirable: < 100 mg/dL Above Desirable: 100 - 129 mg/dL Borderline High: 130 - 159 mg/dL High: ??160 - 189 mg/dL Very High: >= 190 mg/dL Non HDL Cholesterol Desirable: < 130 mg/dL Above Desirable: 130 - 159 mg/dL Borderline High: 160 - 189 mg/dL High: 190 - 219 mg/dL Very High: >= 220 mg/dL Authorizing ProviderResult TypeResult StatusHeather Bushra [place] MDLAB - BLOOD ORDERABLESFinal ResultPerforming OrganizationAddressCity/State/ZIP Code Phone Number [facility] - CORE LAB [facility] [address] 1st Floor [place] [address] * (ABNORMAL) HEMOGLOBIN A1C (12/31/2024 11:48 AM BLACKTOP SPREADER)ComponentValueRef RangeTest MethodAnalysis TimePerformed AtPathologist SignatureEstimated Average Glucose 157(H)<117 mg/dL12/31/2024 2:49 PM CSTUU LABORATORYHemoglobin A1C7.1(H)<5.7 % 12/31/2024 2:49 PM CSTUU LABORATORYComment: Normal <5.7% Prediabetes 5.7-6.4% ?? Diabetes 6.5% or higher Note: Adopted from ADA consensus guidelines. Specimen (Source)Anatomical Location / LateralityCollection Method / Volume Collection TimeReceived TimeBloodSTRUCTURE OF RIGHT UPPER LIMB / Unknown Venipuncture / Kugbvnj2412/31/2024 11:48 AM CST12/31/2024 11:49 AM BLACKTOP SPREADER Narrative Authorizing ProviderResult TypeResult StatusHeather Bushra [place] MDLAB - BLOOD ORDERABLESFinal ResultPerforming OrganizationAddressCity/State/ZIP Code Phone Number [facility] LABORATORY [facility] [address] [facility], [address] [place] [phone] * MA Screen Bilateral w/Josef (12/03/2024 9:49 AM BLACKTOP SPREADER)Anatomical RegionLaterality ModalityBreastBilateralMammographySpecimen (Source)Anatomical Location / LateralityCollection Method / VolumeCollection TimeReceived Time Impressions 12/03/2024 6:35 PM BLACKTOP SPREADER IMPRESSION: ACR BI-RADS Category 1: Negative BREAST CANCER SCREENING RECOMMENDATION: Routine yearly mammography beginning at age 40 or as discussed with your provider. The results and recommendations of this examination will be communicated to the patient. Kylie Rollins MD Narrative 12/03/2024 6:35 PM BLACKTOP SPREADER BILATERAL FULL FIELD DIGITAL SCREENING MAMMOGRAM WITH TOMOSYNTHESIS Performed on: 12/03/24 Compared to: 10/21/2023, 12/22/2019, and 04/19/2013 Technique: ??This study was evaluated with the assistance of Computer-Aided Detection. ??Breast Tomosynthesis was used in interpretation. Findings: There are scattered areas of fibroglandular density. ??There is no radiographic evidence of malignancy. No significant change. Authorizing ProviderResult TypeResult StatusHeather Bushra [place] MDIMG MAMMOGRAPHY ORDERABLESFinal Result * TSH with free T4 reflex (10/14/2024 6:30 PM BLACKTOP SPREADER)ComponentValueRef RangeTest MethodAnalysis TimePerformed AtPathologist SignatureTSH2.160.30 - 4.20 uIU/mL 10/14/2024 9:42 PM CST LABORATORYSpecimen (Source)Anatomical Location / LateralityCollection Method / VolumeCollection TimeReceived TimeBloodBLOOD SPECIMEN / UnknownVenipuncture / Mdtcfya3610/14/2024 6:30 PM CST10/14/2024 6:32 PM BLACKTOP SPREADER Narrative Authorizing ProviderResult TypeResult StatusTrixie Pulido PA-CLAB - BLOOD ORDERABLESFinal ResultPerforming OrganizationAddressCity/State/ZIP Code Phone Number [facility] [address] 1[address], [address] [place] [address], [facility] [phone] * Occult blood stool (12/10/2023 8:45 AM BLACKTOP SPREADER)ComponentValueRef RangeTest Method Analysis TimePerformed AtPathologist SignatureOccult BloodNegativeNegative MISTY 12/10/2023 9:22 AM [facility] LABORATORYSpecimen (Source)Anatomical Location / LateralityCollection Method / VolumeCollection TimeReceived TimeStoolRECTAL CONTENTS / UnknownNon-blood Collection / Ekfcxie7312/10/2023 8:45 AM CST12/10/2023 9:11 AM BLACKTOP SPREADER Narrative Authorizing ProviderResult TypeResult StatusVerena Villagomez MDLAB - STOOLS ORDERABLESFinal ResultPerforming OrganizationAddressCity/State/ZIP CodePhone Number [facility] [address], [address] [place] [address], [facility] [phone] * Pap imaged thin layer screen with HPV - recommended age 30 - 65 years (select HPV order below) (07/26/2020 5:05 PM CDT)ComponentValueRef RangeTest Method Analysis TimePerformed AtPathologist SignaturePAPNILCOPATHCopath Report Patient Name: GEMINI WANG MR#: [id number] Specimen #: [id number] Collected: 07/26/2020 Received: 07/27/2020 Reported: 07/31/2020 08:05 Ordering Phy(s): [place] For improved result formatting, select 'View Enhanced Report Format' under Linked Documents section. SPECIMEN/STAIN PROCESS: Pap imaged thin layer prep screening (Surepath, FocalPoint with guided screening) ? Pap-Cyto x 1, HPV ordered x 1 SOURCE: Cervical, endocervical Pap imaged thin layer prep screening (Surepath, FocalPoint with guided screening) SPECIMEN ADEQUACY: Satisfactory for evaluation. -Transformation zone component absent. CYTOLOGIC INTERPRETATION: Negative for intraepithelial lesion or malignancy Electronically signed out by: DIOMEDES Hubbard ??(ASCP) CLINICAL HISTORY: Hysterectomy, A previous normal pap Date of Last Pap: 12/19/10, Papanicolaou Test Limitations: ??Cervical cytology is a screening test with limited sensitivity; regular screening is critical for cancer prevention; Pap tests are primarily effective for the diagnosis/prevention of squamous cell carcinoma, not adenocarcinomas or other cancers. The technical component of this testing was completed at the [facility], with the professional component performed at the [facility], [address] [place] [phone] ([phone]) COLLECTION SITE: Client: ??[facility] Location: [facility] (B) COPATHSpecimen (Source)Anatomical Location / LateralityCollection Method / VolumeCollection TimeReceived TimeCytologic material (specimen)07/26/2020 5:05 PM CDT07/27/2020 11:15 AM CDT Narrative Authorizing ProviderResult TypeResult StatusHeather Bushra [place] MDLAB - OPTIME CLINICAL SPECIMENFinal ResultPerforming OrganizationAddressCity/State/ZIP CodePhone Number [facility] * Dexa hip/pelvis/spine (08/23/2019 2:00 PM CDT)Anatomical RegionLaterality ModalityDexaBone Mineral DensitySpecimen (Source)Anatomical Location / LateralityCollection Method / VolumeCollection TimeReceived Time Narrative 08/24/2019 9:31 AM CDT [facility] [address] [place] [address] Phone: ?? Fax: Patient name: ?? Gemini Wang Patient demographics: ??64 year old White Female History: ??Cancer - Breast, Cancer - Ovarian, Evaluation of Bone Density, Family History of Fracture, Family History of Osteoporosis, Hysterectomy, prison use of steroids, Low Vit D, Osteoporosis, Post Menopausal, Rheumatoid Arthritis, Thyroid Condition and Tobacco Habit - Past Current treatments: ??Vitamin D Scan: ?[place] Conclusions: The most negative and valid T-score of -2.8 at the level of the right femoral neck corresponds with osteoporosis according to WHO criteria for postmenopausal females and men age 50 and over. The risk of osteoporotic fracture increases approximately 2-fold for each 1.0 SD decrease in T-score. Low bone density is not the only risk factor for fracture; consider factors such as patient's age, fall risk, injury risk, previous osteoporotic fracture, family history of osteoporosis, etc. ??People with an elevated risk of fracture should be regularly evaluated for low bone mineral density. ??For patients eligible for Medicare, routine testing is allowed once every 2 years. Testing frequency can be increased for patients on corticosteroids. Clinical correlation is recommended. Comparison Exams: Taking into account the precision errors (ref #3 below) for this center: These calculated changes in BMD to the previous exam (2018) are significantly decreased at the level of the left total hip, right total hip and wrist by 4.2%, 6.2% and 9.6% respectively. These calculated changes in BMD to the baseline exam (2016) are significantly decreased at the level of the left total hip, right total hip and wrist by 7.9%, 9.5%, and 15.2% respectively. Percent changes not mentioned or within remaining regions are either insignificant or invalid. Please note that the differential diagnosis of BMD increase in the spine includes improvement due to pharmacotherapy vs inter-current progression of spine degeneration or fracture. Please refer to BMD values in PACS. Bone densitometry cannot rule out secondary causes of bone loss. Therefore, further metabolic testing to look for secondary causes of low BMD should be performed if indicated. Clinical correlation is recommended Clinical correlation is strongly recommended. Feel free to contact DXA services if you have any questions or comments. ?? Thank you for the opportunity to be of service to you and your patient. Principal result research recruiter: Paxton Saba MD, , [facility] Division of Endocrinology and Diabetes ?? Department of Medicine Technical comments: Satisfactory. Abnormal vertebrae may be excluded from analysis if there is more than a 1.0 T-score difference between the vertebrae in question and adjacent vertebrae. Note the wide range in BMD values and T-scores within the lumbar spine. In the circumstances, the lumbar spine is nor represented, due to previous spine surgery and hardware placed. References: Ref. 1. WHO categories: ? T-score > -1.0 = normal . T-score -1.0 to -2.5 = low bone density T-score < -2.5 = osteoporosis . Ref. 2. 2015 ISCD official position statements: ??www.iscd.org. Ref. 3. ??(LSC = least significant change) AP spine = ??0.032 g/cm2 ??(05.12.2007) Left hip = 0.029 g/cm2 ??(05.01.2007) Right hip = 0.018 g/cm2 ??(05.01.2007) Left mid radius = 0.043 g/cm2 ??(05.12.2007) Lateral spine region = pending Total body = pending According to the ISCD position statements, total hip rather than femoral neck regions are to be compared because larger areas give better precision. Ref. 4. ??By definition, osteoporosis may be diagnosed in the presence or with the history of a low trauma or fragility fracture. ??Fragility and low trauma fracture is defined as a fracture resulting from the force of a fall from a standing height or less or a bone that breaks under conditions that would not cause a normal bone to break. ?? Ref. 5. NOF Physician's Guideline Website address: ??www.nof.org. Authorizing ProviderResult TypeResult StatusTasmmeg Hwang MDIMG DEXA ORDERABLESFinal Result * COLONOSCOPY (05/04/2018 2:21 PM CDT)ComponentValueRef RangeTest MethodAnalysis TimePerformed AtPathologist SignatureCOLO[address] [place] [address] [phone] ? Endoscopy Department Patient Name: Gemini Wang ?Procedure Date: 05/04/2018 2:21 PM ? Date of : 1955 ?Admit Type: Outpatient Age: 63 ?Gender: Female Note Status: Finalized ?Attending MD: Justice Mena MD Total Sedation Time: ? Procedure: ? Colonoscopy Indications: ? High risk colon cancer surveillance: Personal history of ? colonic polyps Providers: ? Justice Mena MD, Sangeeta Redman RN Referring MD: ?Natalie [place] MD Medicines: ? Midazolam 4 mg IV, Fentanyl 100 micrograms IV, ? Diphenhydramine 50 mg IV Complications: ? No immediate complications. Procedure: ? Pre-Anesthesia Assessment: ? - CV Examination: normal. ? - Mental Status Examination: alert and oriented. ? - Respiratory Examination: clear to auscultation. ? - ASA Grade Assessment: II - A patient with mild ? systemic disease. ? - After reviewing the risks and benefits, the patient ? was deemed in satisfactory condition to undergo the ? procedure. ? - The anesthesia plan was to use moderate ? sedation/analgesia (conscious sedation). ? - Immediately prior to administration of medications, ? the patient was re-assessed for adequacy to receive ? sedatives. ? - Sedation was administered by an endoscopy nurse. The ? sedation level attained was moderate. ? - The heart rate, respiratory rate, oxygen saturations, ? blood pressure, adequacy of pulmonary ventilation, and ? response to care were monitored throughout the procedure. ? - The physical status of the patient was re-assessed ? after the procedure. ? After obtaining informed consent, the colonoscope was ? passed under direct vision. Throughout the procedure, ? the patient's blood pressure, pulse, and oxygen ? saturations were monitored continuously. The Colonoscope ? was introduced through the anus and advanced to the ? cecum, identified by appendiceal orifice and ileocecal ? valve. The colonoscopy was performed without difficulty. ? The patient tolerated the procedure well. The quality of ? the bowel preparation was good. ? Findings: ? Three sessile polyps were found in the ascending colon and cecum. The ? polyps were 3 to 8 mm in size. These polyps were removed with a cold ? snare. Resection and retrieval were complete. ? The exam was otherwise without abnormality. ? Moderate Sedation: ? Moderate (conscious) sedation was administered by the endoscopy nurse ? and supervised by the endoscopist. The following parameters were ? monitored: oxygen saturation, heart rate, blood pressure, and response ? to care. Total physician intraservice time was 22 minutes. Impression: ?- Three 3 to 8 mm polyps in the ascending colon and in ? the cecum, removed with a cold snare. Resected and ? retrieved. ? - The examination was otherwise normal. Recommendation: ?- Repeat colonoscopy in 3 years for surveillance. ? Signed Electronically by Justice Mena MD Justice Mena MD 05/04/2018 3:00:14 PM I was physically present for the entire viewing portion of the exam. Signature of teaching physician Terry/Fish Mena MD Number of Addenda: 0 Note Initiated On: 05/04/2018 2:21 PMRADIOLOGY RESULTSSpecimen (Source)Anatomical Location / LateralityCollection Method / VolumeCollection TimeReceived Time 05/04/2018 2:21 PM CDT Narrative Authorizing ProviderResult TypeResult StatusHeather Bushra [place] MD PROCEDURESFinal ResultPerforming OrganizationAddressCity/State/ZIP CodePhone Number RADIOLOGY RESULTS * Hepatits C antibody (10/17/2016 3:50 AM BLACKTOP SPREADER)ComponentValueRef RangeTest Method Analysis TimePerformed AtPathologist SignatureHepatitis C AntibodyNonreactive Assay performance characteristics have not been established for newborns, infants, and children NRUNJOHNS HOPKINS HOSPITALSpecimen (Source)Anatomical Location / LateralityCollection Method / VolumeCollection TimeReceived TimeBlood specimen (specimen)10/17/2016 3:50 AM CST10/17/2016 4:10 AM BLACKTOP SPREADER Narrative Authorizing ProviderResult TypeResult StatusPrema Morrison MDLAB - BLOOD ORDERABLESFinal ResultPerforming OrganizationAddressCity/State/ZIP CodePhone Number [address] [address] * FLEXIBLE SIGMOIDOSCOPY (03/31/2006 9:10 AM CDT)ComponentValueRef RangeTest MethodAnalysis TimePerformed AtPathologist SignatureFlex [id number] [facility] Patient Name: Gemini Wang ?Gender: F ? Procedure Date: 03/31/2006 09:10:00 AM ? SSN: [id number] ?Date of : 1955 ? Age: 51 ? Admit Type: Outpatient ?Note Status: Finalized ? Attending MD: Patel Thurman ?Pause For The Cause: Pause for the cause Procedure: ?Flexible Sigmoidoscopy Indications: ?Hematochezia Providers: ?Patel Thurman MD Referring MD: ?? Complications: ??No immediate complications Procedure: ?After obtaining informed consent, the scope was passed under ?direct vision. The was introduced through the anus and ?advanced to the descending colon. The flexible sigmoidoscopy ?was accomplished without difficulty. ? Findings: ? A diffuse area of mildly erythematous and mpoaynas-qgwrkym-uvbaeyqls ? mucosa was found in the rectum and in the sigmoid colon. Biopsies were ? taken with a cold forceps for histology. ? Impression: ? - Erythematous and awslixgv-yisckdg-iuuljmaiv mucosa in the ?rectum and in the sigmoid colon. Signed electronically by Patel Thurman MD Patel Thurman MD Signed Date: 03/31/2006 09:43:20 AM Number of Addenda: 0 I was physically present for the entire viewing portion of the exam. Signature of teaching physician B4c/D4c Note generated on 03/31/2006 09:12:43 AMRADIOLOGY RESULTSFlex SigRADIOLOGY RESULTSSpecimen (Source)Anatomical Location / LateralityCollection Method / VolumeCollection TimeReceived Time03/31/2006 9:10 AM CDT Narrative Authorizing ProviderResult TypeResult StatusRonald D Olman MDPROCEDURESFinal ResultPerforming OrganizationAddressCity/State/ZIP CodePhone Number RADIOLOGY RESULTS from Last 3 Months or Most Recently Relevant to Health Maintenance Additional Health Concerns InfectionOnset DateLast [id number] Insurance * Guarantor: Gemini Wang TypeRelation to PatientDate of PhoneBilling AddressPersonal/LtfcagKsvn[address] [address] * Guarantor: Gemini Wang TypeRelation to PatientDate of PhoneBilling AddressPersonal/TnzywoMutv[address] [place] [address] * Guarantor: Gemini Wang TypeRelation to PatientDate of PhoneBilling AddressPersonal/GuplglWtxd17 [address] [address] * Guarantor: Gemini Wang TypeRelation to PatientDate of PhoneBilling AddressPersonal/OytiqmHiwp30 [address] [address] * Guarantor: Gemini Wang TypeRelation to PatientDate of PhoneBilling AddressPersonal/YljzedVpit40 [address] [address] * Guarantor: Kist, Gemini MarieAccount TypeRelation to PatientDate of PhoneBilling AddressPersonal/JorfeqEolb1955 [address] [address] * Guarantor: KathleenGemini TypeRelation to PatientDate of PhoneBilling AddressThird RwadyMmnb[address] [place] [address] * Guarantor: Gemini Wang TypeRelation to PatientDate of PhoneBilling AddressMedication LfdswkoUxiu[address] [place] [address] Advance Directives For more information, please contact: [phone] TypeDate RecordedPatient RepresentativeExplanationAdvance Directives and Living Will06/10/2025Health Care Directive 04/20/2025dvance Directives and Living Will 06/30/2023superseded by 08-09-22 order; Resuscitation Guidelines [id number] Directives and Living Will3POLST 08-09-2022 * No CPR- Do NOT Intubate (Latest Code Status on File) Date ActivatedDate InactivatedComments01/07/2025 1:14 AM01/18/2025 6:59 PMNO basic or advanced life-sustaining interventions are performedQuestionAnswerComments Code status determined by:* AD/POLST (patient decision maker unavailable) * No CPR- Do NOT Intubate Date ActivatedDate OkalziqetpbMirzgvwm18/28/2024 9:19 PM10/23/2024 3:11 PMNO basic or advanced life-sustaining interventions are performedQuestionAnswer CommentsCode status determined by:* AD/POLST (patient decision maker unavailable) * No CPR- Do NOT Intubate Date ActivatedDate BfzosvazklgCatlxgrp35/20/2024 10:15 09/10/2024 3:34 PMNO basic or advanced life-sustaining interventions are performedQuestionAnswer CommentsCode status determined by:* Discussion with patient/ legal decision maker * No CPR- Do NOT Intubate Date ActivatedDate InactivatedComments12/07/2023 12:59 AM12/15/2023 6:45 PMNO basic or advanced life-sustaining interventions are performedQuestionAnswer CommentsCode status determined by:* AD/POLST (patient decision maker unavailable) * No CPR- Do NOT Intubate Date ActivatedDate InactivatedComments11/18/2023 3:49 PM11/24/2023 5:40 PMNO basic or advanced life-sustaining interventions are performed. Reviewed most recent up to date POLST with staff at patient's senior living.QuestionAnswerCommentsCode status determined by:* Other (please document) NameRelationshipHealthcare Agent RelationshipCommunicationTerrie KhoiBanner- Primary Health Care Agent* * * [email or web address]-Primary Health Care Agent* * [email or web address] Team MemberRelationshipSpecialtyStart DateEnd Date Kiana Dennis [address] [place] [phone] PCP - GeneralUnity[facility]02/25/25 Raphael Solo MD 909 [place], [place] [address] Orthopedics03/06/15 Isac Mayorga MD 420 [facility] 508 [place] [address] MDCardiology03/07/15 Henry Motta MD [address] [facility] 276 [place], [place] [address] MDInternal Medicine04/17/15 Tania Arevalo MD 516 [place] [address] MDOphthalmology06/16/15 Paolo Ferris MD [address] [facility] 284 [place] [address] Referring PhysicianInternal Medicine06/28/15 Rachid Han MD [address] [facility] 284 [place], [place] [address] MDOphthalmology07/05/15 Ave Del Toro MD 515 [facility] 88 [place], [place] [address] MDRheumatology07/20/15 Aleks Phillips MD 420 [place], [place] [address] XQXbuhkuuwgjkue93/17/15 Aliyah Rust APRN FLOATING OPERATOR 420 [place] [address] Nurse PractitionerClinical Nurse Specialist03/19/16 Issac Graham MD 420 [place] [address] MDNeurolog11/25/16 Ana Maria Hwang MD 420 [facility] 101 [place] [address] MDInternal Hjyqjrdw32/26/17 Marcial Astudillo MD [facility] 516 [facility] 98 [place] [address] ResidentStudent in organized health care education/training buxquvd31/6/17 Ekaterina Reardon MD [address] [place] [address] Neurology02/03/18 Raphael Teresa MD [facility] [address] Orthopaedic Surgery03/12/18 Smooth Hussein MD [facility] [address] [address] MDAnesthesiology04/27/18 La Lopez MD [address] [place], [place] [address] [place], [place] [address] Neurolog12/02/19 Issac Graham MD [address] [place] [address] Referring PhysicianNeurology1/ Natalie Vasques MD 909 [facility] 2121 [place], [place] [address] Assigned PCP02/25/21 Mat Sanchez Jr., MD 420 [place], [place] 5040[address] ResidentStudent in organized health care education/training ylkegqk04/25/21 Hussein Roth, RN Registered Nurse02/15/22 Lisa Tolbert PA-C Physician AssistantCardiovascular Disease04/02/22 Lisa Tolbert PA-C Physician AssistantCardiovascular Disease04/02/22 Yamila Alas OD [address] [place] [address] Optometry06/26/22 Robyn Walter, SCHOOL PSYCHOLOGIST [address] [place], [place] [address] Nurse PractitionerCardiovascular Disease08/09/22 Vonnie Sweeney MD 9 [place], [place] [address] MDAnesthesiology12/18/22 Yamila Alas, CHIQUIS [address] [place] [address]288[address] Optometry05/12/23 Leonidas Razo Night RT06/27/23 Shaggy Cintron MD [address] [place], [place] [address] Assigned Neuroscience Fbilzlun38/7/23 Delonte Moody MD [address] [place], [place] [address] XqxcuaomzBatwvdjhhhzjr60/6/23 Lucas Veliz MD 420 [facility] 396 [place], [place] [address] MDOtolaryngology02/04/24 Dayron Sanchez, [place] [address] [place] [address] Audiology02/04/24 Ty Grewal MD [address] [address] [facility]04/29/24 Otilia Rendon [facility] PharmacistPharmacist08/02/24 Otilia Rendon [facility] Atisfpcazw35/8/24 Henry Motta MD [address] [facility] 276 [place] [address] MDCritical Care04/26/25 Lucas Veliz MD [address] [facility] 396 [place], [place] [address] Assigned Surgical Provider05/09/25 Nany Solitario NP [address] [address] Assigned Heart and Vascular Provider08/09/25
--- OUTSIDE RECORDS SUMMARY | 2025-11-06 10:14 | XMS_ITS | Encounter Summary ---
Author Organization [facility] Address [address] [place] [address]. [place] [address] Care Team Providers Care Calculation Clerk Name Role Phone Raphael Solo MD Unavailable [phone] Isac Mayorga MD Unavailable [phone] Henry Motta MD Unavailable [phone] Tania Arevalo MD Unavailable +[phone] Paolo Ferris MD Unavailable Rachid Han MD Unavailable +[phone] MD Unavailable +[phone] Aleks Phillips MD Unavailable + [phone] Aliyah Rust APRN RADIO SCRIPT WRITER Unavailable [phone] Issac Graham MD Unavailable Unavailable Ana Maria Hwang MD Unavailable +[phone] Marcial Astudillo MD Unavailable [phone] Ekaterina Reardon MD Unavailable +[phone] Raphael Teresa MD Unavailable [phone] Smooth Hussein MD Unavailable Unavailable La Lopez MD Unavailable Issac Graham MD Unavailable Unavailable Natalie Vasques MD Unavailable + Daniel Contreras MD, Willie Unavailable + [phone] Hussein Roth RN Unavailable Unavailable Lisa Tolbert PA-C Unavailable Un available Liegl, Lisasivakumar Miller PA-C Unavailable Un available Yamila Alas OD Unavailable [phone] Robyn Walter CANDY PULLER Unavailable +[phone] Vonnie Sweeney MD Unavailable +[phone] Yamila Alas OD Unavailable + [phone] Leonidas Razo Unavailable Unavailable Shaggy Cintron MD Unavailable Delonte Moody MD Unavailable +[phone] Lucas Veliz MD Unavailable +[phone] Dayron Sanchez AuD Unavailable +[phone] Ty Grewal MD Unavailable +[phone] Otilia Rendon [facility] Unavailable Unavailable Otilia Rendon [facility] Unavailable Unavailable Kiana Dennis Primary Care Provider [phone] Henry Motta MD Unavailable [phone] Lucas Veliz MD Unavailable + [phone] Nany Solitario NP Unavailable +[phone] Encounter Details DateTypeDepartmentCare Team (Latest Contact Info)Bnsmilpcctr90/10/2025Travel Social History Tobacco UseTypesPacks/DayYears UsedDateSmoking Tobacco: FormerCigarettes0.151 Started: 11/17/1974Smokeless Tobacco: Never Comments:1-2 cigarettes a da y Alcohol UseStandard Drinks/WeekCommentsNot Currently0 (1 standard drink = 0.6 oz pure alcohol)Holidays, 1 glass on new years.Social Connection and Isolation PanelAnswerDate RecordedFrequency of Communication with Friends and FamilyTwice a week12/13/2019Frequency of Social Gatherings with Friends and FamilyPatient woddupnn63/27/2020Attends Jehovah'S Witness ServicesPatient htnphqdy39/27/2020Active Member of Clubs or ZfsqwhsveqkygQh62/27/2020Attends Club or Organization MeetingsPatient wlxzroda53/27/2020Marital StatusLiving with mpjrcmv4712/13/2019 AUDIT-CAnswerDate RecordedQ1: How often do you have a drink containing alcohol? Never12/13/2019Q2: How many drinks containing alcohol do you have on a typical day when you are drinking?Patient witpapcg11/27/2020Q3: How often do you have six or more drinks on one occasion?Patient jncmyvuq12/27/2020PHQ-2AnswerDate RecordedPHQ-2 Wfuqw571[place] of [employer] - Occupational Stress QuestionnaireAnswerDate RecordedFeeling of StressOnly a yxyvdo7212/13/2019Exercise Vital SignAnswerDate RecordedDays of Exercise per Week0 [...] have received?Associate degree: occupational, technical, or vocational tzxwtvs5312/13/2019CommentsNoSex and Gender InformationValue Date RecordedSex Assigned at BirthNot on fileLegal EplHnkovw70/04/2012 3:32 AM CSTGender IdentityNot on fileSexual OrientationNot on filedocumented as of this encounter Plan of Treatment DateTypeDepartmentCare Team (Latest Contact Info)Poswbnntlux26/22/2025 2:00 PM CSTOffice Visit [facility] [address] [place] [phone] Nany Solitario NP [address] [place], [place] [address] 12/27/2025 11:00 AM CSTOffice Visit [facility] [place] [address] [place] [phone] Nany Solitario NP [address] [place] [address] [place] [address] [address] [facility] 202 [place], [place] [address] 04/28/2026 11:00 AM CDTOffice Visit [facility] [address] [address] Henry Motta MD 420 [facility] 276 [place], [place] [address] documented as of this encounter Visit Diagnoses Not on filedocumented in this encounter Additional Health Concerns InfectionOnset DateLast IndicatedResolved BzyhEVYM31/02/2410224Assessment Noted TimePHQ-9 Depression Total Score: 111 3:03 PM CSTdocumented as of this encounter Care Teams Team MemberRelationshipSpecialtyStart DateEnd Date Jeannie Kiana L 700 [place] [phone] PCP - GeneralFamily Practice02/25/25 Raphael Solo MD 909 [place], [place] [address] Orthopedics03/06/15 Isac Mayorga MD 420 [facility] 508 [place], [place] [address] MDCardiology03/07/15 Henry Motta MD 420 [facility] 276 [place], [place] [address] MDInternal Medicine04/17/15 Tania Arevalo MD 516 [place], [place] [address] MDOphthalmology06/16/15 Paolo Ferris MD 420 [facility] 284 [place], [place] [address] Referring PhysicianInternal Medicine06/28/15 Rachid Han MD 420 [facility] 284 [place] [address] MDOphthalmology07/05/15 Ave Del Toro MD [address] [place] [address] 88 [place] [address] MDRheumatology07/20/15 Aleks Phillips MD 420 [place] [address] FAKeckzljycbbyd09/17/15 Aliyah Rust, [employer] RADIO SCRIPT WRITER 420 [place], [place] [address] Nurse PractitionerClinical Nurse Specialist03/19/16 Issac Graham MD 420 [place] [address] MDNeurolog11/25/16 Ana Maria Hwang MD [address] [place] [address] 101 [place], [place] [address] MDInternal Qjoudzxo92/26/17 Marcial Astudillo MD [facility] 516 [facility] 98 [place], [place] [address] ResidentStudent in organized health care education/training rpcjcmo64/6/17 Ekaterina Reardon MD 909 [place], [place] 12[address]85 Neurology02/03/18 Raphael Teresa MD [address] [place] [address] MDOrthopaedic Surgery03/12/18 Smooth Hussein MD [facility]2 [address] [place] [address] MDAnesthesiology04/27/18 La Lopez MD [address] 380965 MDNeurology1 Issac Graham MD [address] [place] [address] Referring PhysicianNeurology1 Natalie Vasques MD [address] [place] [address] Assigned PCP02/25/21 Mat Sanchez Jr., MD [address] [place] [address] ResidentStudent in organized health care education/training cjxfapc60/25/21 Hussein Roth, RN Registered Nurse02/15/22 Lisa Tolbert PA-C Physician AssistantCardiovascular Disease04/02/22 Lisa Tolbert PA-C Physician AssistantCardiovascular Disease04/02/22 Yamila Alas OD [address] [place] [address] 493 [place], [place] [address] Optometry06/26/22 Robyn Walter, CANDY PULLER [address] [place] [address] Nurse PractitionerCardiovascular Disease08/09/22 Vonnie Sweeney MD 909 [place], [place] [address] MDAnesthesiology12/18/22 Bishop Yamila CHIQUIS Gabriel [address] [facility] [address] [facility] [address] [place], [place] [address] Optometry05/12/23 Reisdorf, Leonidas Night RT06/27/23 Shaggy Cintron MD [address] [place], [place] [address] Assigned Neuroscience Oaholzmx34/7/23 Delonte Moody MD [address] [place], [place] [address] QxpclrspgIztmakfrxsflf95/6/23 Lucas Veliz MD 420 [facility] 396 [place], [place] [address] MDOtolaryngology02/04/24 Dayron Sanchez, [place] [address] [place] [address]89769 Audiology02/04/24 Ty Grewal MD [address] [place] [address] [facility]04/29/24 Otilia Rendon RPH PharmacistPharmacist08/02/24 Otilia Rendon RPH [facility] Ozgbyttprc68/8/24 Henry Motta MD 420 [facility] 276 [place] [address] MDCritical Care04/26/25 Lucas Veliz MD 420 [facility] 396 [place] [address] Assigned Surgical Provider05/09/25 Nany Solitario NP [address] [place] [address] Assigned Heart and Vascular Provider08/09/25documented as of this encounter
--- OUTSIDE RECORDS SUMMARY | 2025-11-06 10:14 | XMS_ITS | Encounter Summary ---
Author Organization [place] Address [address] [place] [address]. [place] [address] Care Team Providers Care Primer Waterproofing Machine Operator Name Role Phone Raphael Solo MD Unavailable [phone] Isac Mayorga MD Unavailable +[phone] Henry Motta MD Unavailable [phone] Tania Arevalo MD Unavailable +[phone] Paolo Ferris MD Unavailable Rachid Han MD Unavailable +[phone] MD Unavailable +[phone] Aleks Phillips MD Unavailable + [phone] Aliyah Rust APRN FRONT OFFICE ADMINISTRATOR Unavailable +[phone] Issac Graham MD Unavailable Unavailable Ana Maria Hwang MD Unavailable +[phone] Marcial Astudillo MD Unavailable +[phone] Ekaterina Reardon MD Unavailable +[phone] Raphael Teresa MD Unavailable +[phone] Smooth Hussein MD Unavailable Unavailable La Lopez MD Unavailable [phone] Issac Graham MD Unavailable Unavailable Natalie Vasques MD Unavailable + Daniel Contreras MD, Willie Unavailable +[phone] Hussein Roth RN Unavailable Unavailable Liegl, Lisa Angela PA-C Unavailable Un available Liegl, Lisa Angela PA-C Unavailable Un available Yamila Alas OD Unavailable + [phone] Robyn Walter INSPECTOR ALIGNING Unavailable +[phone] Vonnie Sweeney MD Unavailable +[phone] Yamila Alas OD Unavailable + [phone] Leonidas Razo Unavailable Unavailable Shaggy Cintron MD Unavailable Delonte Moody MD Unavailable +[phone] Lucas Veliz MD Unavailable +[phone] Dayron Sanchez Unavailable +[phone] Ty Grewal MD Unavailable +[phone] Otilia Rendon [facility] Unavailable Unavailable Otilia Rendon [facility] Unavailable Unavailable Kiana Dennis Primary Care Provider [phone] Henry Motta MD Unavailable [phone] Lucas Veliz MD Unavailable +[phone] Nany Solitario NP Unavailable +[phone] Reason for Visit * ReasonOnset DateCommentsLabs Only10/21/2025 Encounter Details DateTypeDepartmentCare Team (Latest Contact Info)Odewltzymhm05/05/2025[facility] [address] [facility] [address] [place] [address] Nany Solitario, MCKINLEY 6[address] [facility] [place] [address] Labs Only Social History Tobacco UseTypesPacks/DayYears UsedDateSmoking Tobacco: FormerCigarettes0.151 Started: 11/17/1974Smokeless Tobacco: Never Comments:1-2 cigarettes a da y Alcohol UseStandard Drinks/WeekCommentsNot Currently0 (1 standard drink = 0.6 oz pure alcohol)Holidays, 1 glass on new years.Social Connection and Isolation PanelAnswerDate RecordedFrequency of Communication with Friends and FamilyTwice a week12/13/2019Frequency of Social Gatherings with Friends and FamilyPatient hsuzctps49/27/2020Attends Episcopalian ServicesPatient /27/2020Active Member of Clubs or UwcwknojepptaDi45/27/2020Attends Club or Organization MeetingsPatient /27/2020Marital StatusLiving with sqztxql4112/13/2019 AUDIT-CAnswerDate RecordedQ1: How often do you have a drink containing alcohol? Never12/13/2019Q2: How many drinks containing alcohol do you have on a typical day when you are drinking?Patient yrrjblln08/27/2020Q3: How often do you have six or more drinks on one occasion?Patient dxubbgwj04/27/2020PHQ-2AnswerDate RecordedPHQ-2 Mfacg559Finintermountain healthcare [place] of Occupational Health - Occupational Stress QuestionnaireAnswerDate RecordedFeeling of StressOnly a bpeued1112/13/2019Exercise Vital SignAnswerDate RecordedDays of Exercise per Week0 [...] in an abandoned building, in an overnight longterm, or couch-surfing.)Yes01/14/2025re you worried about losing your [...] have received?Associate degree: occupational, technical, or vocational uhpmocc3612/13/2019CommentsNoSex and Gender InformationValue Date RecordedSex Assigned at BirthNot on fileLegal TawQgeubd72/04/2012 3:32 AM CSTGender IdentityNot on fileSexual OrientationNot on filedocumented as of this encounter Miscellaneous Notes * Telephone Encounter - Susan Valverde - 10/21/2025 1:18 PM CST [facility] Phone Message May a detailed message be left on voicemail: yes Reason for Call: Order(s): Other: Reason for requested: [facility]- [facility] called to confirm if pt needs labs prior to 11/07 follow-up appt w/ Yolanda Solitario NP. She states pt's family stated per AVS pt needs labs prior to follow up. No orders in epic. If labs are needed, please fax lab orders to [facility] @ F: [phone], their next lab date is 11/01. Call back @ P: [phone]. Date needed: leonel Provider name: Nany Solitario NP Action Taken: Other: CARDIO Travel Screening: Not Applicable Date of Service: EYOR OPERATOR documented in this encounter Plan of Treatment DateTypeDepartmentCare Team (Latest Contact Info)Glqiliypzjr89/22/2025 2:00 PM CSTOffice Visit [facility] [place] [address] [facility] [address] [place] [phone] Nany Solitario NP [address] [place], [place] [address] 12/27/2025 11:00 AM CSTOffice Visit [facility] [address] [place] [phone] Nany Solitario NP [address] [place], [place] [address] [place] [address] [address] [facility] [address] [place], [place] [address] 04/28/2026 11:00 AM CDTOffice Visit [facility] [place] [address] [facility] [place] [address] Henry Motta MD 420 [facility] 276 [place] [address] documented as of this encounter Visit Diagnoses Not on filedocumented in this encounter Additional Health Concerns InfectionOnset DateLast IndicatedResolved HjpvFPQX86ssessment Noted TimePHQ-9 Depression Total Score: 111 3:03 PM CSTdocumented as of this encounter Care Teams Team MemberRelationshipSpecialtyStart DateEnd Date Kiana Dennis 700 [place] [phone] PCP - GeneralFamily Practice02/25/25 Raphael Solo MD 909 [place] [address] Orthopedics03/06/15 Isac Mayorga MD [address] [facility] [address] [place], [place] [address] MDCardiology03/07/15 Henry Motta MD 420 [facility] 276 [place], [place] [address] MDInternal Medicine04/17/15 Tania Arevalo MD 516 [place], [place] [address] MDOphthalmology06/16/15 Paolo Ferris MD [address] [facility] [address] [place], [place] [address] Referring PhysicianInternal Medicine06/28/15 Rachid Han MD [address] [facility] 284 [place], [place] [address] MDOphthalmology07/05/15 Ave Del Toro MD 515 [facility] 88 [place], [place] [address] MDRheumatology07/20/15 Aleks Phillips MD 420 [place], [place] [address] HTVooosidabjxln94/17/15 Aliyah Rust APRN FRONT OFFICE ADMINISTRATOR 420 [place] [address] Nurse PractitionerClinical Nurse Specialist03/19/16 Issac Graham MD 420 [place] [address] MDNeurology1 Ana Maria Hwang MD 420 [facility] 101 [place] [address] MDInternal Mjrwzwoz02/26/17 Marcial Astudillo MD [facility] 516 [facility] 98 [place] [address] ResidentStudent in organized health care education/training qhbntve02/6/17 Ekaterina Reardon MD [address] [place] [address]205 Neurology02/03/18 Raphael Teresa MD [facility] [address] [address] Orthopaedic Surgery03/12/18 Smooth Hussein MD [facility] [address] [address] MDAnesthesiology04/27/18 La Lopez MD [address] [place] [address] 2121 [place] [address] Neurology1 Issac Graham MD [address] [place] [address] Referring PhysicianNeurology1/16/20 Natalie Vasques MD 909 [facility] 2121 [place], [place] [address] Assigned PCP02/25/21 Mat Sanchez Jr., MD 420 [place], [place] [address] ResidentStudent in organized health care education/training omhfiog79/25/21 Hussein Roth, RN Registered Nurse02/15/22 Lisa Tolbert PA-C Physician AssistantCardiovascular Disease04/02/22 Lisa Tolbert PA-C Physician AssistantCardiovascular Disease04/02/22 Yamila Alas OD [address] [place] [address] Optometry06/26/22 Robyn Walter, INSPECTOR ALIGNING [address] [place] [address] Nurse PractitionerCardiovascular Disease08/09/22 Vonnie Sweeney MD [address] [place] [address] MDAnesthesiology12/18/22 Yamila Alas OD [address] [address] Optometry05/12/23 Reisdorf, Leonidas Night RT06/27/23 Shaggy Cintron MD [address] [place] [address] Assigned Neuroscience Jlmzvkft92/7/23 Delonte Moody MD [address] [place] [address] VxpejwuqwMqxnrczxqutso53/6/23 Lucas Veliz MD 420 [facility] 396 [place] [address] MDOtolaryngology02/04/24 Dayron Sanchez, [place] [address] [place] [address] Audiology02/04/24 Ty Grewal MD [address] [place] [address] [facility]04/29/24 Otilia Rendon [facility] PharmacistPharmacist08/02/24 Otilia Rendon [facility] Quumnbdryg11/8/24 Henry Motta MD [address] [facility] 276 [place] [address] MDCritical Care04/26/25 Lucas Veliz MD [address] [facility] 396 [place] [address] Assigned Surgical Provider05/09/25 Nany Solitario NP [address] [place] [address] Assigned Heart and Vascular Provider08/09/25documented as of this encounter
--- OUTSIDE RECORDS SUMMARY | 2025-11-06 10:14 | XMS_ITS | Encounter Summary ---
Author Organization [place] Address [address] [place] [address]. [place] [address] Care Team Providers Care Long Line Teamster Name Role Phone Raphael Solo MD Unavailable [phone] Isac Mayorga MD Unavailable +[phone] Henry Motta MD Unavailable [phone] Tania Arevalo MD Unavailable +[phone] Paolo Ferris MD Unavailable Rachid Han MD Unavailable +[phone] MD Unavailable +[phone] Aleks Phillips MD Unavailable + [phone] Aliyah Rust APRN MECHANICAL LEAD Unavailable [phone] Issac Graham MD Unavailable Unavailable Ana Maria Hwang MD Unavailable +[phone] Marcial Astudillo MD Unavailable +[phone] Ekaterina Reardon MD Unavailable +[phone] Raphael Teresa MD Unavailable [phone] Smooth Hussein MD Unavailable Unavailable La Lopez MD Unavailable [phone] Issac Graham MD Unavailable Unavailable Natalie Vaqsues MD Unavailable + Daniel Contreras MD, Willie Unavailable + [phone] Hussein Roth RN Unavailable Unavailable Lisa Tolbert PA-C Unavailable Un available Liegl, Lisasivakumar Miller PA-C Unavailable Un available Yamila Alas OD Unavailable +[phone] Robyn Walter GUEST RELATIONS EXECUTIVE Unavailable +[phone] Vonnie Sweeney MD Unavailable [phone] Yamila Alas OD Unavailable + [phone] Leonidas Razo Unavailable Unavailable Shaggy Cintron MD Unavailable Delonte Moody MD Unavailable +[phone] Lucas Veliz MD Unavailable +[phone] Dayron Sanchez AuD Unavailable +[phone] Ty Grewal MD Unavailable +[phone] Otilia Rendon [facility] Unavailable Unavailable Otilia Rendon [facility] Unavailable Unavailable Kiana Dennis Primary Care Provider [phone] Henry Motat MD Unavailable [phone] Lucas Veliz MD Unavailable + [phone] Nany Solitario NP Unavailable +[phone] Encounter Details DateTypeDepartmentCare Team (Latest Contact Info)Yvrqhxluvwz96/12/2025Travel Social History Tobacco UseTypesPacks/DayYears UsedDateSmoking Tobacco: FormerCigarettes0.151 Started: 11/17/1974Smokeless Tobacco: Never Comments:1-2 cigarettes a da y Alcohol UseStandard Drinks/WeekCommentsNot Currently0 (1 standard drink = 0.6 oz pure alcohol)Holidays, 1 glass on new years.Social Connection and Isolation PanelAnswerDate RecordedFrequency of Communication with Friends and FamilyTwice a week12/13/2019Frequency of Social Gatherings with Friends and FamilyPatient cyvsknlw44/27/2020Attends Christianity ServicesPatient wglwimgq26/27/2020Active Member of Clubs or QnygskegiwdsiSr36/27/2020Attends Club or Organization MeetingsPatient /27/2020Marital StatusLiving with kxmembp6812/13/2019 AUDIT-CAnswerDate RecordedQ1: How often do you have a drink containing alcohol? Never12/13/2019Q2: How many drinks containing alcohol do you have on a typical day when you are drinking?Patient kejudxvp49/27/2020Q3: How often do you have six or more drinks on one occasion?Patient oopqdqbr35/27/2020PHQ-2AnswerDate RecordedPHQ-2 Cewov030[place] of Occupational Health - Occupational Stress QuestionnaireAnswerDate RecordedFeeling of StressOnly a zapjej0412/13/2019Exercise Vital SignAnswerDate RecordedDays of Exercise per Week0 [...] have received?Associate degree: occupational, technical, or vocational lugcdlc5512/13/2019CommentsNoSex and Gender InformationValue Date RecordedSex Assigned at BirthNot on fileLegal BetSbfijl86/04/2012 3:32 AM CSTGender IdentityNot on fileSexual OrientationNot on filedocumented as of this encounter Plan of Treatment DateTypeDepartmentCare Team (Latest Contact Info)Iddrfkoafsn29/22/2025 2:00 PM CSTOffice Visit [facility] [address] [place] [phone] Nany Solitario NP [address] [place], [place] [address] 12/27/2025 11:00 AM CSTOffice Visit [facility] [place] [address] [place] [phone] Nany Solitario NP [address] [place] [address] [place] [address] [address] [facility] 202 [place], [place] [address] 04/28/2026 11:00 AM CDTOffice Visit [facility] [address] [address] Henry Motta MD 420 [facility] 276 [place], [place] [address] documented as of this encounter Visit Diagnoses Not on filedocumented in this encounter Additional Health Concerns InfectionOnset DateLast IndicatedResolved FquaYDGC22/02/[id number] Noted TimePHQ-9 Depression Total Score: 111 3:03 PM CSTdocumented as of this encounter Care Teams Team MemberRelationshipSpecialtyStart DateEnd Date Jeannie Kiana L 700 [place] [phone] PCP - GeneralFamily Practice02/25/25 Raphael Solo MD 909 [place], [place] [address] Orthopedics03/06/15 Isac Mayorga MD 420 [facility] 508 [place], [place] [address] MDCardiology03/07/15 Henry Motta MD 420 [facility] 276 [place], [place] [address] MDInternal Medicine04/17/15 Tania Arevalo MD 516 [place], [place] [address] MDOphthalmology06/16/15 Paolo Ferris MD 420 [facility] 284 [place], [place] [address] Referring PhysicianInternal Medicine06/28/15 Rachid Han MD 420 [facility] 284 [place] [address] MDOphthalmology07/05/15 Ave Del Toro MD [address] [place] [address] 88 [place] [address] MDRheumatology07/20/15 Aleks Phillips MD 420 [place] [address] FKOsnjttwnhcvyg34/17/15 Aliyah Rust, DAMPER WORKER MECHANICAL LEAD 420 [place], [place] [address] Nurse PractitionerClinical Nurse Specialist03/19/16 Issac Graham MD 420 [place] [address] MDNeurolog11/25/16 Ana Maria Hwang MD [address] [place] [address] 101 [place], [place] [address] MDInternal Wykwdeih17/26/17 Marcial Astudillo MD [facility] 516 [facility] 98 [place], [place] [address] ResidentStudent in organized health care education/training kiardun53/6/17 Ekaterina Reardon MD 909 [place], [place] [address] Neurology02/03/18 Raphael Teresa MD [address] [place] [address] MDOrthopaedic Surgery03/12/18 Smooth Hussein MD [facility]2 [address] [place] [address] MDAnesthesiology04/27/18 La Lopez MD [address] [address] MDNeurology1 Issac Graham MD [address] [place] [address] Referring PhysicianNeurology1 Natalie Vasques MD [address] [place] [address]405 Assigned PCP02/25/21 Mat Sanchez Jr., MD [address] [place] [address] ResidentStudent in organized health care education/training wqfkeva17/25/21 Hussein Roth, RN Registered Nurse02/15/22 Lisa Tolbert PA-C Physician AssistantCardiovascular Disease04/02/22 Lisa Tolbert PA-C Physician AssistantCardiovascular Disease04/02/22 Yamila Alas OD [address] [place] [address] 493 [place], [place] [address] Optometry06/26/22 Robyn Walter, GUEST RELATIONS EXECUTIVE [address] [place] [address] Nurse PractitionerCardiovascular Disease08/09/22 Vonnie Sweeney MD 909 [place], [place] [address] MDAnesthesiology12/18/22 Bishop Yamila CHIQUIS Gabriel [address] [place] [address] [facility] 493 [place], [place] [address] Optometry05/12/23 Reisdorf, Leonidas Night RT06/27/23 Shaggy Cintron MD [address] [place], [place] [address] Assigned Neuroscience Gmclccan80/7/23 Delonte Moody MD [address] [place], [place] [address] BezxjqosfOfogkifobbbda66/6/23 Lucas Veliz MD 420 [facility] 396 [place], [place] [address] MDOtolaryngology02/04/24 Dayron Sanchez, [place] [address] [place] [address] Audiology02/04/24 Ty Grewal MD [address] [place] [address] [facility]04/29/24 Otilia Rendon RPH PharmacistPharmacist08/02/24 Otilia Rendon RPH [facility] Lzdrggsksy90/8/24 Henry Motta MD 420 [facility] 276 [place] [address] MDCritical Care04/26/25 Lucas Veliz MD 420 [facility] 396 [place] [address] Assigned Surgical Provider05/09/25 Nany Solitario NP [address] [place] [address] Assigned Heart and Vascular Provider08/09/25documented as of this encounter
--- OUTSIDE RECORDS SUMMARY | 2025-11-06 10:14 | XMS_ITS | Encounter Summary ---
Author Organization [facility] Address [address] [place] [address]. [place] [address] Care Team Providers Care Recovery Manager Name Role Phone Raphael Solo MD Unavailable [phone] Isac Mayorga MD Unavailable +[phone] Henry Motta MD Unavailable [phone] Tania Arevalo MD Unavailable +[phone] Paolo Ferris MD Unavailable Rachid Han MD Unavailable +[phone]o MD Unavailable +[phone] Aleks Phillips MD Unavailable + [phone] Aliyah Rust APRN MOLD YARD SUPERVISOR Unavailable +[phone] Issac Graham MD Unavailable Unavailable Ana Maria Hwang MD Unavailable +[phone] Marcial Astudillo MD Unavailable +[phone] Ekaterina Reardon MD Unavailable +[phone] Raphael Teresa MD Unavailable +[phone] Smooth Hussein MD Unavailable Unavailable La Lopez MD Unavailable Issac Graham MD Unavailable Unavailable Natalie Vasques MD Unavailable + Daniel Contreras MD, Willie Unavailable +[phone] Hussein Roth RN Unavailable Unavailable LieLisa zieglere PA-C Unavailable Un available Liegl, Lisa Angela PA-C Unavailable Un available Yamila Alas OD Unavailable + [phone] Robyn Walter ROLL OVER LOADER Unavailable +[phone] Vonnie Sweeney MD Unavailable +[phone] Yamila Alas OD Unavailable + [phone] Leonidas Razo Unavailable Unavailable Shaggy Cintron MD Unavailable Delonte Moody MD Unavailable +[phone] Lucas Veliz MD Unavailable +[phone] Dayron Sanchez AuD Unavailable +[phone] Ty Grewal MD Unavailable +[phone] Otilia Rendon [facility] Unavailable Unavailable Otilia Rendon [facility] Unavailable Unavailable Kiana Dennis Primary Care Provider +[phone] Henry Motta MD Unavailable [phone] Lucas Veliz MD Unavailable +[phone] Nany Solitario NP Unavailable +[phone] Encounter Details DateTypeDepartmentCare Team (Latest Contact Info)Emmvinkxest65/11/2025Results Follow-Up [facility] [address] [facility] [address] [place] [address] Nany Solitario NP [address] [place] [address]32[address] Social History Tobacco UseTypesPacks/DayYears UsedDateSmoking Tobacco: FormerCigarettes0.151 Started: 11/17/1974Smokeless Tobacco: Never Comments:1-2 cigarettes a da y Alcohol UseStandard Drinks/WeekCommentsNot Currently0 (1 standard drink = 0.6 oz pure alcohol)Holidays, 1 glass on new years.Social Connection and Isolation PanelAnswerDate RecordedFrequency of Communication with Friends and FamilyTwice a week12/13/2019Frequency of Social Gatherings with Friends and FamilyPatient aelztkch63/27/2020Attends Judaism ServicesPatient fekvfosu34/27/2020Active Member of Clubs or IubnvyrhrbphnBj25/27/2020Attends Club or Organization MeetingsPatient txcvbllo97/27/2020Marital StatusLiving with mradzvt0412/13/2019 AUDIT-CAnswerDate RecordedQ1: How often do you have a drink containing alcohol? Never12/13/2019Q2: How many drinks containing alcohol do you have on a typical day when you are drinking?Patient rqihnpaf13/27/2020Q3: How often do you have six or more drinks on one occasion?Patient bekkoemh40/27/2020PHQ-2AnswerDate RecordedPHQ-2 Fxose545[place] of Occupational Health - Occupational Stress QuestionnaireAnswerDate RecordedFeeling of StressOnly a mrwawe0312/13/2019Exercise Vital SignAnswerDate RecordedDays of Exercise per Week0 [...] in an abandoned building, in an overnight chcf, or couch-surfing.)Yes01/14/2025re you worried about losing your [...] have received?Associate degree: occupational, technical, or vocational clrvlsa7312/13/2019CommentsNoSex and Gender InformationValue Date RecordedSex Assigned at BirthNot on fileLegal EuuZcqaam94/04/2012 3:32 AM CSTGender IdentityNot on fileSexual OrientationNot on filedocumented as of this encounter Plan of Treatment DateTypeDepartmentCare Team (Latest Contact Info)Apfgldhcnwy96/22/2025 2:00 PM CSTOffice Visit [facility] [address] [place] [phone] Nany Solitario NP [address] [place] [address] 12/27/2025 11:00 AM CSTOffice Visit [facility] [place] [address] [place] [phone] Nany Solitario NP [address] [place] [address] [place] [address] AMANDA VERDIN N [facility] [address] [place] [address] 04/28/2026 11:00 AM CDTOffice Visit [facility] [place] [address] [place] [phone] Henry Motta MD [address] [id number] documented as of this encounter Visit Diagnoses Not on filedocumented in this encounter Additional Health Concerns InfectionOnset DateLast IndicatedResolved PnazHWPL43ssessment Noted TimePHQ-9 Depression Total Score: 3:03 PM CSTdocumented as of this encounter Care Teams Team MemberRelationshipSpecialtyStart DateEnd Date Kiana Dennis 700 [place] [address] PCP - GeneralFamily Practice02/25/25 Raphael Solo MD 909 [place], [place] [address]84[address] Orthopedics03/06/15 Isac Mayorga MD 420 [facility] 508 [place], [place] [address] MDCardiology03/07/15 Henry Motta MD 420 [facility] 276 [place], [place] [address] MDInternal Medicine04/17/15 Tania Arevalo MD [address] [place] [address] MDOphthalmology06/16/15 Paolo Ferris MD 420 [facility] 284 [place], [place] [address] Referring PhysicianInternal Medicine06/28/15 Rachid Han MD 420 [facility] 284 [place], [place] [address] MDOphthalmology07/05/15 Ave Del Toro MD [address] [place] [address] 88 [place], [place] [address] MDRheumatology07/20/15 Aleks Phillips MD 420 [place], [place] 7[address]15 PNGgaddougzprwc59/17/15 Aliyah Rust, AQUATICS ASSISTANT DEPARTMENT HEAD MOLD YARD SUPERVISOR 420 [place], [place] [address] Nurse PractitionerClinical Nurse Specialist03/19/16 Issac Graham MD 420 [place] [address] MDNeurolog11/25/16 Ana Maria Hwang MD 420 [facility] 101 [place], [place] [address] MDInternal Avtvkhna61/26/17 Marcial Astudillo MD [facility] 516 [facility] 98 [place], [place] [address] ResidentStudent in organized health care education/training qcpmobl49/6/17 Ekaterina Reardon MD [address] [place] [address] MDNeurology02/03/18 Raphael Teresa MD [address] [place] [address] Orthopaedic Surgery03/12/18 Smooth Hussein MD [address] [place] [address] MDAnesthesiology04/27/18 La Lopez MD [address] [place] [address] MDNeurolog12/02/19 Issac Graham MD [address] [place] [address] Referring PhysicianNeurology1 Natalie Vasques MD [address] [place] [address] 736935 Assigned PCP02/25/21 Mat Sanchez Jr., MD [address] [place] [address] ResidentStudent in organized health care education/training hofytrq02/25/21 Hussein Roth, RIKI Registered Nurse02/15/22 Lisa Tolbert PA-C Physician AssistantCardiovascular Disease04/02/22 Lisa Tolbert PA-C Physician AssistantCardiovascular Disease04/02/22 Yamila Alas OD [address] [place] [address] 493 [place], [place] 8[address] Optometry06/26/22 Robyn Walter, ROLL OVER LOADER [address] [place] [address]25[address] Nurse PractitionerCardiovascular Disease08/09/22 Vonnie Sweeney MD 909 [place], [place] 7[address] MDAnesthesiology12/18/22 Yamila Alas OD 420 [facility] 493 [place], [place] [address] Optometry05/12/23 Reisdorf, Leonidas Night RT06/27/23 Shaggy Cintron MD [address] [place] [address] [place], [place] [id number] Assigned Neuroscience Hrsucapa86/7/23 Delonte Moody MD [address] [place] [address] [place], [place] [address] CoazagzxhZzhoxksktcsmo70/6/23 Lucas Veliz MD 420 [facility] 396 [place], [place] [address] MDOtolaryngology02/04/24 Dayron Sanchez, AuD [address], [place] [address] Audiology02/04/24 Ty Grewal MD [address] [place] [address] [facility]04/29/24 Otilia Rendon [facility] PharmacistPharmacist08/02/24 Otilia Rendon [facility] Afearnxrod97/8/24 Henry oMtta MD 420 [facility] 276 [place], [place] 4[address] MDCritical Care04/26/25 Lucas Veliz MD 420 [facility] 396 [place], [place] [address] Assigned Surgical Provider05/09/25 Nany Solitario NP [address] [place] [address] Assigned Heart and Vascular Provider08/09/25documented as of this encounter
--- OUTSIDE RECORDS SUMMARY | 2025-11-06 10:15 | XMS_ITS | Encounter Summary ---
Author Organization [facility] Address [address] [place] [address]. [place] [address] Care Team Providers Care Narcotics And Vice Detective Name Role Phone Raphael Solo MD Unavailable [phone] Isac Mayorga MD Unavailable [phone] Henry Motta MD Unavailable [phone] Tania Arevalo MD Unavailable +[phone] Paolo Ferris MD Unavailable Rachid Han MD Unavailable +[phone] MD Unavailable +[phone] Aleks Phillips MD Unavailable + [phone] Aliyah Rust APRN FOOD PRODUCTION ASSOCIATE Unavailable +[phone] Issac Graham MD Unavailable Unavailable Ana Maria Hwang MD Unavailable +[phone] Marcial Astudillo MD Unavailable [phone] Ekaterina Reardon MD Unavailable +[phone] Raphael Teresa MD Unavailable [phone] Smooth Hussein MD Unavailable Unavailable La Lopez MD Unavailable [phone] Issac Graham MD Unavailable Unavailable Natalie Vasques MD Unavailable + Daniel Contreras MD, Willie Unavailable + [phone] Hussein Roth RN Unavailable Unavailable Lisa Tolbert PA-C Unavailable Un available Liegl, Lisasivakumar Miller PA-C Unavailable Un available Yamila Alas OD Unavailable + [phone] Robyn Walter SHOPPER MARKETING MANAGER Unavailable +[phone] Vonnie Sweeney MD Unavailable +[phone] Yamila Alas OD Unavailable + [phone] Leonidas Razo Unavailable Unavailable Shaggy Cintron MD Unavailable Delonte Moody MD Unavailable [phone] Lucas Veliz MD Unavailable +[phone] Dayron Sanchez AuD Unavailable +[phone] Ty Grewal MD Unavailable +[phone] Otilia Rendon [facility] Unavailable Unavailable Otilia Rendon [facility] Unavailable Unavailable Kiana Dennis Primary Care Provider [phone] Henry Motta MD Unavailable [phone] Lucas Veliz MD Unavailable + [phone] Nany Solitario NP Unavailable +[phone] Encounter Details DateTypeDepartmentCare Team (Latest Contact Info)Pswrcgsxifk38/16/2025Care Coordination [facility] [place] [id number] [place] [address] Estela Davis, RIKI Social History Tobacco UseTypesPacks/DayYears UsedDateSmoking Tobacco: FormerCigarettes0.151 Started: 11/17/1974Smokeless Tobacco: Never Comments:1-2 cigarettes a da y Alcohol UseStandard Drinks/WeekCommentsNot Currently0 (1 standard drink = 0.6 oz pure alcohol)Holidays, 1 glass on new years.Social Connection and Isolation PanelAnswerDate RecordedFrequency of Communication with Friends and FamilyTwice a week12/13/2019Frequency of Social Gatherings with Friends and FamilyPatient /27/2020Attends Taoism ServicesPatient vxfnxqtu42/27/2020Active Member of Clubs or TygeifxmcsszcTe27/27/2020Attends Club or Organization MeetingsPatient ijctwxnb94/27/2020Marital StatusLiving with gjbokdx3512/13/2019 AUDIT-CAnswerDate RecordedQ1: How often do you have a drink containing alcohol? Never12/13/2019Q2: How many drinks containing alcohol do you have on a typical day when you are drinking?Patient jgwxbunt70/27/2020Q3: How often do you have six or more drinks on one occasion?Patient svewzrze94/27/2020PHQ-2AnswerDate RecordedPHQ-2 Sddlt622Finmountain west medical center [place] of Occupational Health - Occupational Stress QuestionnaireAnswerDate RecordedFeeling of StressOnly a stgspz6012/13/2019Exercise Vital SignAnswerDate RecordedDays of Exercise per Week0 [...] in an abandoned building, in an overnight [place], or couch-surfing.)Yes01/14/2025re you worried about losing your [...] have received?Associate degree: occupational, technical, or vocational ycdieje3412/13/2019CommentsNoSex and Gender InformationValue Date RecordedSex Assigned at BirthNot on fileLegal QssToqfyv07/04/2012 3:32 AM CSTGender IdentityNot on fileSexual OrientationNot on filedocumented as of this encounter Plan of Treatment DateTypeDepartmentCare Team (Latest Contact Info)Vcmszywhbop24/22/2025 2:00 PM CSTOffice Visit [facility] [address] [place], [place] [phone] Nany Solitario NP [address] [place] 3[address] 12/27/2025 11:00 AM CSTOffice Visit [facility] [place] [address] [place] [phone] Nany Solitario NP [address] [place] [address]695 [place] [address] [address] [place] [address] 04/28/2026 11:00 AM CDTOffice Visit [facility] [place] 909 [place] [phone] Herny Motta MD 420 [facility] 276 [place], [place] [address] documented as of this encounter Visit Diagnoses Not on filedocumented in this encounter Additional Health Concerns InfectionOnset DateLast IndicatedResolved LtmgTPKQ62ssessment Noted TimePHQ-9 Depression Total Score: 111 3:03 PM CSTdocumented as of this encounter Care Teams Team MemberRelationshipSpecialtyStart DateEnd Date Kiana Dennis 700 [place] [address] PCP - GeneralFamily Practice02/25/25 Raphael Solo MD 9 [place], [place] [address]605 Orthopedics03/06/15 Isac Mayorga MD 420 [facility] 508 [place], [place] [address] MDCardiology03/07/15 Henry Motta MD 420 [facility] 276 [place], [place] [address] Internal Medicine04/17/15 Tania Arevalo MD [address] [place] [address] 789265 MDOphthalmology06/16/15 Paolo Ferris MD 420 [facility] 284 [place], [place] [address]115 Referring PhysicianInternal Medicine06/28/15 Rachid Han MD [address] [place] [address] 284 [place], [place] [address] MDOphthalmology07/05/15 Ave Del Toro MD [address] [place] [address] 88 [place], [place] 3[address] MDRheumatology07/20/15 Aleks Phillips MD [address] [place] [address] 304905 YVQqzwhxygijaxd24/17/15 Aliyah Rust, PHOTO TUBE ASSEMBLER FOOD PRODUCTION ASSOCIATE [address] [place] [address] 772485 Nurse PractitionerClinical Nurse Specialist03/19/16 Issac Graham MD [address] [place] [address] MDNeurolog11/25/16 Ana Maria Hwang MD [address] [place] [address] 101 [place], [place] [address] MDInternal Jyxgytyg26/26/17 Marcial Astudillo MD [facility] 516 [facility] 98 [place], [place] [address] ResidentStudent in organized health care education/training pwpjcyh58/6/17 Ekaterina Reardon MD 909 [place], [place] 6[address]15 Neurology02/03/18 Raphael Teresa MD [address] [place] [address] MDOrthopaedic Surgery03/12/18 Smooth Hussein MD [address] [address] MDAnesthesiology04/27/18 La Lopez MD [address] [place] [address] Neurolog12/02/19 Issac Graham MD [address] [place] [address] Referring PhysicianNeurolog12/02/19 Natalie Vasques MD [address] [place] [address] 424325 Assigned PCP02/25/21 Mat Sanchez Jr., MD [address] [place] [address] 523925 ResidentStudent in organized health care education/training skibbww06/25/21 Hussein Roth, RIKI Registered Nurse02/15/22 Lisa Tolbert PA-C Physician AssistantCardiovascular Disease04/02/22 Lisa Tolbert PA-C Physician AssistantCardiovascular Disease04/02/22 Yamila Alas OD 420 [facility] 493 [place], [place] [address] Optometry06/26/22 Robyn Walter, SHOPPER MARKETING MANAGER [address] [place] [address] Nurse PractitionerCardiovascular Disease08/09/22 Vonnie Sweeney MD 909 [place] [address] MDAnesthesiology12/18/22 Yamila Alas OD 420 [facility] 493 [place] [address] Optometry05/12/23 Leonidas Razo Night RT06/27/23 Shaggy Cintron MD [address] [place] [address] Assigned Neuroscience Gvirwnsp34/7/23 Delonte Moody MD [address] [address] [place] [address] AmwxixkndLnbddadskqvvf54/6/23 Lucas Veliz MD 420 [facility] 396 [place] [address] MDOtolaryngology02/04/24 Dayron Sanchez, AuD [address] [place] [address] Audiology02/04/24 Ty Grewal MD [address] [place] [address] [facility]04/29/24 Otilia Rednon, [facility] PharmacistPharmacist08/02/24 Otilia Rendon [facility] MT Tnnzwgofzp15/8/24 Henry Motta MD 420 [facility] 276 [place] [address] MDCritical Care04/26/25 Lucas Veliz MD 420 [facility] 396 [place] [address] Assigned Surgical Provider05/09/25 Nany Solitario NP [address] [place] [address] Assigned Heart and Vascular Provider08/09/25documented as of this encounter
--- OUTSIDE RECORDS SUMMARY | 2025-11-06 10:15 | XMS_ITS | Encounter Summary ---
Author Organization [place] Address [address] [place] [address]. [place] [address] Care Team Providers Care Gas Technician Name Role Phone Raphael Solo MD Unavailable [phone] Isac Mayorga MD Unavailable +[phone] Henry Motta MD Unavailable [phone] Tania Arevalo MD Unavailable +[phone] Paolo Ferris MD Unavailable Rachid Han MD Unavailable +[phone] MD Unavailable +[phone] Aleks Phillips MD Unavailable + [phone] Aliyah Rust APRN PARALEGAL ASSISTANT Unavailable +[phone] Issac Graham MD Unavailable Unavailable Ana Maria Hwang MD Unavailable +[phone] Marcial Astudillo MD Unavailable +[phone] Ekaterina Reardon MD Unavailable +[phone] Rapahel Teresa MD Unavailable +[phone] Smooth Hussein MD Unavailable Unavailable La Lopez MD Unavailable Issac Graham MD Unavailable Unavailable Natalie Vasques MD Unavailable + Daniel Contreras MD, Willie Unavailable +[phone] Hussein Roth RN Unavailable Unavailable LieLisa zieglere PA-C Unavailable Un available Liegl, Lisa Angela PA-C Unavailable Un available Yamila Alas OD Unavailable + [phone] Robyn Walter CERTIFIED CODER Unavailable +[phone] Vonnie Sweeney MD Unavailable +[phone] Yamila Alas OD Unavailable + [phone] Leonidas Razo Unavailable Unavailable Shaggy Cintron MD Unavailable Delonte Moody MD Unavailable +[phone] Lucas Veliz MD Unavailable +[phone] Dayron Sanchez Unavailable +[phone] Ty Grewal MD Unavailable +[phone] Otilia Rendon [facility] Unavailable Unavailable Otilia Rendon [facility] Unavailable Unavailable Kiana Dennis Primary Care Provider +[phone] Henry Motta MD Unavailable [phone] Lucas Veliz MD Unavailable +[phone] Nany Solitario NP Unavailable +[phone] Encounter Details DateTypeDepartmentCare Team (Latest Contact Info)Fcvrvtzvgjg16/17/2025Tele[facility] [address] [place] [address] Henry Motta MD [address] [place] [address] 276 [place], [place] [address] Social History Tobacco UseTypesPacks/DayYears UsedDateSmoking Tobacco: FormerCigarettes0.151 Started: 11/17/1974Smokeless Tobacco: Never Comments:1-2 cigarettes a da y Alcohol UseStandard Drinks/WeekCommentsNot Currently0 (1 standard drink = 0.6 oz pure alcohol)Holidays, 1 glass on new years.Social Connection and Isolation PanelAnswerDate RecordedFrequency of Communication with Friends and FamilyTwice a week12/13/2019Frequency of Social Gatherings with Friends and FamilyPatient mhhfnizy58/27/2020Attends Mormon ServicesPatient gijasccx33/27/2020Active Member of Clubs or YfsskezxybyzjLr26/27/2020Attends Club or Organization MeetingsPatient epraxvji94/27/2020Marital StatusLiving with zxgjkjy0612/13/2019 AUDIT-CAnswerDate RecordedQ1: How often do you have a drink containing alcohol? Never12/13/2019Q2: How many drinks containing alcohol do you have on a typical day when you are drinking?Patient huegshvi18/27/2020Q3: How often do you have six or more drinks on one occasion?Patient lqunuhys45/27/2020PHQ-2AnswerDate RecordedPHQ-2 Jeywx377[place] of Occupational Health - Occupational Stress QuestionnaireAnswerDate RecordedFeeling of StressOnly a fvbbpt8712/13/2019Exercise Vital SignAnswerDate RecordedDays of Exercise per Week0 [...] have received?Associate degree: occupational, technical, or vocational ialnjxq1812/13/2019CommentsNoSex and Gender InformationValue Date RecordedSex Assigned at BirthNot on fileLegal ZxlFdyxvp24/04/2012 3:32 AM CSTGender IdentityNot on fileSexual OrientationNot on filedocumented as of this encounter Miscellaneous Notes * Telephone Encounter - Grisel Watkins RN - 11/02/2025 2:05 PM CST Peg from [facility] called in requesting nebulizer medication and albuterol inhaler medication prescriptions be FAXed to facility where patient lives: [phone] HELP DESK TECHNICIAN documented in this encounter Plan of Treatment DateTypeDepartmentCare Team (Latest Contact Info)Hhznpslbuib57/22/2025 2:00 PM CSTOffice Visit [place] [address] [facility] [address] [place] [phone] Nany Solitario NP [address] [facility] [place] [address] 12/27/2025 11:00 AM CSTOffice Visit M [facility] [place] [address] [place] [phone] Nany Solitario NP [address] [place] [address] [place] [address] [address] [place], [place] [address] 04/28/2026 11:00 AM CDTOffice Visit M [facility] [place] [address] [place] [address] Henry Motta MD 420 [facility] 276 [place] [address] documented as of this encounter Visit Diagnoses Not on filedocumented in this encounter Additional Health Concerns InfectionOnset DateLast IndicatedResolved FunkQGOB64/02/7129134Assessment Noted TimePHQ-9 Depression Total Score: 111 3:03 PM CSTdocumented as of this encounter Care Teams Team MemberRelationshipSpecialtyStart DateEnd Date Kiana Dennis [address] [place] [address] PCP - GeneralFamily Practice02/25/25 Raphael Solo MD 909 [place] [address] Orthmartindics03/06/15 Isac Mayorga MD [address] [place] [address] 508 [place] [address] MDCardiology03/07/15 Henry Motta MD 420 [facility] 276 [place], [place] [address] MDInternal Medicine04/17/15 Tania Arevalo MD 516 [place], [place] [address]25 MDOphthalmology06/16/15 Paolo Ferris MD 420 [facility] 284 [place], [place] [address] Referring PhysicianInternal Medicine06/28/15 Rachid Han MD 420 [facility] 284 [place], [place] [address] MDOphthalmology07/05/15 Ave Del Toro MD 515 [facility] 88 [place], [place] [address] MDRheumatology07/20/15 Aleks Phillips MD 420 [place], [place] [address] JCDgjtpbosnrsvb65/17/15 Aliyah Rust, SHREDDED FILLER CUTTER OPERATOR PARALEGAL ASSISTANT [address] [place], [place] [address] Nurse PractitionerClinical Nurse Specialist03/19/16 Issac Graham MD 420 [place] [address] MDNeurolog11/25/16 Ana Maria Hwang MD 420 [facility] 101 [place], [place] [address] MDInternal Xemamebd96/26/17 Marcial Astudillo MD [facility] 516 [facility] 98 [place] [address] ResidentStudent in organized health care education/training bhtjaof44/6/17 Ekaterina Reardon MD [address] [place] [address] Neurology02/03/18 Raphael Teresa MD [address] [place] [address] Orthopaedic Surgery03/12/18 Smooth Hussein MD [address] [place] [address] MDAnesthesiology04/27/18 La Lopez MD [address] [place] [address] MDNeurolog12/02/19 Issac Graham MD 420 [place] [address] Referring PhysicianNeurolog12/02/19 Natalie Vasques MD [address] [place] [address] Assigned PCP02/25/21 Mat Sanchez Jr., MD [address] [place] [address] ResidentStudent in organized health care education/training vwcfjxe95/25/21 Hussein Roth, RN Registered Nurse02/15/22 Lisa Tolbert PA-C Physician AssistantCardiovascular Disease04/02/22 Lisa Tolbert PA-C Physician AssistantCardiovascular Disease04/02/22 Yamila Alas, OD [address] [place] [address] [facility] [address] [place], [place] [address] Optometry06/26/22 Robyn Walter, CERTIFIED CODER [address] [place], [place] [address] Nurse PractitionerCardiovascular Disease08/09/22 Vonnie Sweeney MD [address] [place], [place] [address] MDAnesthesiology12/18/22 Yamila Alas, OD 420 [facility] 493 [place], [place] [address] Optometry05/12/23 Reisdsaad, Leonidas Night RT06/27/23 Shaggy Cintron MD [address] [place], [place] [address] Assigned Neuroscience Laedvspd12/7/23 Delonte Moody MD [address] [place], [place] [address] RcngejyndFoddrvnefnjrv72/6/23 Lucas Veliz MD [address] [place] [facility] 396 [place], [place] [address] MDOtolaryngology02/04/24 Dayron Sanchez, [place] [address] [place] [address] Audiology02/04/24 Ty Grewal MD [address] 705465 [facility]04/29/24 Otilia Rendon [place] PharmacistPharmacist08/02/24 Otilia Rendon Cirilo [facility] Hgrlnusggc36/8/24 Henry Motta MD [address] [facility] 276 [place], [place] [address] MDCritical Care04/26/25 Lucas Veliz MD [address] [facility] 396 [place], [place] [address] Assigned Surgical Provider05/09/25 Nany Solitario NP [address] [address] Assigned Heart and Vascular Provider08/09/25documented as of this encounter
--- OUTSIDE RECORDS SUMMARY | 2025-11-06 10:15 | XMS_ITS | Encounter Summary ---
Author Organization [place] Address [address] [place] [address]. [place] [address] Care Team Providers Care Stereo Map Plotter Operator Name Role Phone Raphael Solo MD Unavailable [phone] Isac Mayorga MD Unavailable [phone] Henry Motta MD Unavailable [phone] Tania Arevalo MD Unavailable +[phone] Paolo Ferris MD Unavailable Rachid Han MD Unavailable +[phone] MD Unavailable +[phone] Aleks Phillips MD Unavailable + [phone] Aliyah Rust APRN FORK ASSEMBLER Unavailable +[phone] Issac rGaham MD Unavailable Unavailable Ana Maria Hwang MD Unavailable +[phone] Marcial Astudillo MD Unavailable [phone] Ekaterina Reardon MD Unavailable [phone] Raphael Teresa MD Unavailable [phone] Smooth Hussein MD Unavailable Unavailable La Lopez MD Unavailable [phone] Issac Graham MD Unavailable Unavailable Natalie Vasques MD Unavailable + Daniel Contreras MD, Willie Unavailable +[phone] Hussein Roth RN Unavailable Unavailable LieLisa zieglere PA-C Unavailable Un available Liegl, Lisa Angela PA-C Unavailable Un available Yamila Alas OD Unavailable + [phone] Robyn Walter RIVERBOAT MASTER Unavailable +[phone] Vonnie Sweeney MD Unavailable [phone] Yamila Alas OD Unavailable + [phone] Leonidas Razo Unavailable Unavailable Shaggy Cintron MD Unavailable Delonte Moody MD Unavailable [phone] Lucas Veliz MD Unavailable +[phone] Dayron Sanchez Unavailable +[phone] Ty Grewal MD Unavailable +[phone] Otilia Rendon [facility] Unavailable Unavailable Otilia Rendon [facility] Unavailable Unavailable Kiana Dennis Primary Care Provider [phone] Henry Motta MD Unavailable [phone] Lucas Veliz MD Unavailable +[phone] Nany Solitario NP Unavailable [phone] Encounter Details DateTypeDepartmentCare Team (Latest Contact Info)Kxoubrwiuph82/17/2025TeleD[facility] [address] [place] [address] Henry Motta MD [address] [place] [address] 276 [place], [place] [address] Social History Tobacco UseTypesPacks/DayYears UsedDateSmoking Tobacco: FormerCigarettes0.151 Started: 11/17/1974Smokeless Tobacco: Never Comments:1-2 cigarettes a da y Alcohol UseStandard Drinks/WeekCommentsNot Currently0 (1 standard drink = 0.6 oz pure alcohol)Holidays, 1 glass on new years.Social Connection and Isolation PanelAnswerDate RecordedFrequency of Communication with Friends and FamilyTwice a week12/13/2019Frequency of Social Gatherings with Friends and FamilyPatient lobikdwa73/27/2020Attends Scientology ServicesPatient aguwyzrt84/27/2020Active Member of Clubs or XuhmizzvupgxlUe58/27/2020Attends Club or Organization MeetingsPatient qufqzpbi42/27/2020Marital StatusLiving with sadgatn2112/13/2019 AUDIT-CAnswerDate RecordedQ1: How often do you have a drink containing alcohol? Never12/13/2019Q2: How many drinks containing alcohol do you have on a typical day when you are drinking?Patient kzjenwxw84/27/2020Q3: How often do you have six or more drinks on one occasion?Patient drxsrwot49/27/2020PHQ-2AnswerDate RecordedPHQ-2 Crvpq512F[place]ish [place] of Occupational Health - Occupational Stress QuestionnaireAnswerDate RecordedFeeling of StressOnly a flteqz0512/13/2019Exercise Vital SignAnswerDate RecordedDays of Exercise per Week0 [...] have received?Associate degree: occupational, technical, or vocational mqumzqj1812/13/2019CommentsNoSex and Gender InformationValue Date RecordedSex Assigned at BirthNot on fileLegal HeuOncppq03/04/2012 3:32 AM CSTGender IdentityNot on fileSexual OrientationNot on filedocumented as of this encounter Miscellaneous Notes * Telephone Encounter - Henry Motta MD - 11/02/2025 2:07 PM CST Pulmonary Staff Results of walkingtest from clinic last Friday reviewed. Goal was to assess need for home oxygen. [place] in her wheelchair for 4 minutes continuously did NOT result in low O2 saturation. I called her gxcbtdk-we-lqx Dexter Shah on mobile phone [phone], the first time the message testing 123... and the second time I reached him and transmitted the news that she doesn't need regular home oxygen. Henry Motta MD ET INSPECTOR documented in this encounter Plan of Treatment DateTypeDepartmentCare Team (Latest Contact Info)Qszmntvdaff62/22/2025 2:00 PM CSTOffice Visit [facility] [address] [place] [address] Nany Solitario NP [address] [place] [address] 12/27/2025 11:00 AM CSTOffice Visit M [facility] [address] [place] [phone] Nany Solitario NP [address] [place] 0[address] [place] [address] [address] [facility] 202 [place], [place] [address] 04/28/2026 11:00 AM CDTOffice Visit M [facility] [address] [address] Henry Motta MD 420 [facility] 276 [place] [address] documented as of this encounter Visit Diagnoses Not on filedocumented in this encounter Additional Health Concerns InfectionOnset DateLast IndicatedResolved SuyqAVXM17/02/440111/4Assessment Noted TimePHQ-9 Depression Total Score: 3:03 PM CSTdocumented as of this encounter Care Teams Team MemberRelationshipSpecialtyStart DateEnd Date Kiana Dennis [address] [place] [address] PCP - GeneralFamily Practice02/25/25 Raphael Solo MD [address] [place] [address] MDOrthopedics03/06/15 Isac Mayorga MD 420 [facility] [address] [place], [place] [address] MDCardiology03/07/15 Henry Motta MD 420 [facility] 276 [place], [place] [address] MDInternal Medicine04/17/15 Tania Arevalo MD 516 [place], [place] [address] MDOphthalmology06/16/15 Paolo Ferris MD 420 [facility] 284 [place], [place] [address] Referring PhysicianInternal Medicine06/28/15 Rachid Han MD 420 [facility] 284 [place], [place] [address] MDOphthalmology07/05/15 Ave Del Toro MD [address] [place] [address] 88 [place], [place] [address] MDRheumatology07/20/15 Aleks Phillips MD [address] [place] [address]995 UMFrooweevuxwqz01/17/15 Aliyah Rust APRN FORK ASSEMBLER [address] [place] [address]145 Nurse PractitionerClinical Nurse Specialist03/19/16 Issac Graham MD [address] [place] [address] [place] [address] MDNeurology1 Ana Maria Hwang MD 420 [facility] 101 [place] [address] MDInternal Ldlumykn64/26/17 Marcial Astudillo MD [facility] 516 [facility] 98 [place], [place] [address] ResidentStudent in organized health care education/training /6/17 Ekaterina Reardon MD [address] [place] [address] Neurology02/03/18 Raphael Teresa MD [address] [place] [address] Orthopaedic Surgery03/12/18 Smooth Hussein MD [facility] [address] [address] MDAnesthesiology04/27/18 La Lopez MD [address] [place] [address] Neurology1 Issac Graham MD [address] [place] [address] Referring PhysicianNeurolog12/02/19 Natalie Vasques MD [address] [place] [address] Assigned PCP02/25/21 Mat Sanchez Jr., MD [address] [place] [address] ResidentStudent in organized health care education/training kkmnqyz12/25/21 Hussein Roth, RN Registered Nurse02/15/22 Lisa Tolbert PA-C Physician AssistantCardiovascular Disease04/02/22 Lisa Tolbert PA-C Physician AssistantCardiovascular Disease04/02/22 Yamila Alas, [place] [address] [place] [address] 835835 Optometry06/26/22 Robyn Walter, RIVERBOAT MASTER [address] [facility] [place], [place] [address] Nurse PractitionerCardiovascular Disease08/09/22 Vonnie Sweeney MD [address] [place] [address]25 MDAnesthesiology12/18/22 Yamila Alas, OD [address] [place] [address] 4[address]45 Optometry05/12/23 Danni Leonidas Night RT06/27/23 Shaggy Cintron MD [address] [place], [place] [address] Assigned Neuroscience Gntcwyfh36/7/23 Delonte Moody MD [address] [place] [address] YlquygufrSicbcwzvwxyiu18/6/23 Lucas Veliz MD 420 [facility] 396 [place], [place] [address] MDOtolaryngology02/04/24 Dayron Sanchez AuD [address] [place] [address] Audiology02/04/24 Ty Grewal MD [address] 915845 [facility]04/29/24 Otilia Rendon RPH PharmacistPharmacist08/02/24 Otilia Rendon [facility] Slpkiufrsw00/8/24 Henry Motta MD 420 [facility] 276 [place] [address] MDCritical Care04/26/25 Lucas Veliz MD 420 [facility] [address] [place] [address] Assigned Surgical Provider05/09/25 Nany Solitario NP [address] [address] Assigned Heart and Vascular Provider08/09/25documented as of this encounter
--- OUTSIDE RECORDS SUMMARY | 2025-11-06 10:15 | XMS_ITS | Encounter Summary ---
Author Organization [facility] Address [address] [place] [address]. [place] [address] Care Team Providers Care Deburrer Machine Name Role Phone Raphael Solo MD Unavailable [phone] Isac Mayorga MD Unavailable [phone] Henry Motta MD Unavailable [phone] Tania Arevalo MD Unavailable [phone] Paolo Ferris MD Unavailable Rachid Han MD Unavailable +[phone] MD Unavailable [phone] Aleks Phillips MD Unavailable + [phone] Aliyah Rust APRN VEGETABLE CUTTER Unavailable [phone] Issac Graham MD Unavailable Unavailable Ana Maria Hwang MD Unavailable +[phone] Marcial Astudillo MD Unavailable [phone] Ekaterina Reardon MD Unavailable +[phone] Raphael Teresa MD Unavailable [phone] Smooth Hussein MD Unavailable Unavailable La Lopez MD Unavailable Issac Graham MD Unavailable Unavailable Natalie Vasques MD Unavailable + Daniel Contreras MD, Willie Unavailable +[phone] Hussein Roth RN Unavailable Unavailable Lisa Tolberte PA-C Unavailable Un available Liegl, Lisa Angela PA-C Unavailable Un available Yamila Alas OD Unavailable + [phone] Robyn Walter JEWISH HISTORY PROFESSOR Unavailable [phone] Vonnie Sweeney MD Unavailable +[phone] Yamila Alas OD Unavailable + [phone] Leonidas Razo Unavailable Unavailable Shaggy Cintron MD Unavailable Delonte Moody MD Unavailable [phone] Lucas Veliz MD Unavailable +[phone] Dayron Sanchez Unavailable +[phone] Ty Grewal MD Unavailable +[phone] Otilia Rendon [facility] Unavailable Unavailable Otilia Rendon [facility] Unavailable Unavailable Kiana Dennis Primary Care Provider [phone] Henry Motta MD Unavailable [phone] Lucas Veliz MD Unavailable +[phone] Nany Solitario NP Unavailable [phone] Encounter Details DateTypeDepartmentCare Team (Latest Contact Info)Qxsmzzpboqp12/17/2025[facility] [address] [address] Grisel Watkins, RN Obstructive chronic bronchitis with exacerbation (H); Moderate persistent asthma without complication Social History Tobacco UseTypesPacks/DayYears UsedDateSmoking Tobacco: FormerCigarettes0.151 Started: 11/17/1974Smokeless Tobacco: Never Comments:1-2 cigarettes a da y Alcohol UseStandard Drinks/WeekCommentsNot Currently0 (1 standard drink = 0.6 oz pure alcohol)Holidays, 1 glass on new years.Social Connection and Isolation PanelAnswerDate RecordedFrequency of Communication with Friends and FamilyTwice a week12/13/2019Frequency of Social Gatherings with Friends and FamilyPatient hbztxutu96/27/2020Attends Protestant ServicesPatient updtmjkn37/27/2020Active Member of Clubs or JvhskgxiucsgiRh05/27/2020Attends Club or Organization MeetingsPatient uzfxztqp74/27/2020Marital StatusLiving with aidcodt6512/13/2019 AUDIT-CAnswerDate RecordedQ1: How often do you have a drink containing alcohol? Never12/13/2019Q2: How many drinks containing alcohol do you have on a typical day when you are drinking?Patient vwtbeppo62/27/2020Q3: How often do you have six or more drinks on one occasion?Patient zecgvysm60/27/2020PHQ-2AnswerDate RecordedPHQ-2 Vufyv566[employer] - Occupational Stress QuestionnaireAnswerDate RecordedFeeling of StressOnly a mhxnuc1312/13/2019Exercise Vital SignAnswerDate RecordedDays of Exercise per Week0 [...] have received?Associate degree: occupational, technical, or vocational qxkfbsr3912/13/2019CommentsNoSex and Gender InformationValue Date RecordedSex Assigned at BirthNot on fileLegal SrqApftki31/04/2012 3:32 AM CSTGender IdentityNot on fileSexual OrientationNot on filedocumented as of this encounter Plan of Treatment DateTypeDepartmentCare Team (Latest Contact Info)Lfnhoiibtwy98/22/2025 2:00 PM CSTOffice Visit [facility] [address] [place] [place] [phone] Nany Solitario NP [address] 1267[address] 12/27/2025 11:00 AM CSTOffice Visit [facility] [place] [address] [place] [address] Nany Solitario NP [address] [address]36105 [place] [address] [address] [id number] 04/28/2026 11:00 AM CDTOffice Visit [facility] [address] [address] Henry Motta MD [address] [facility] [address] [place], [place] [address] documented as of this encounter Visit Diagnoses Diagnosis Obstructive chronic bronchitis with exacerbation (H) Obstructive chronic bronchitis with exacerbation Moderate persistent asthma without complication Unspecified asthma documented in this encounter Additional Health Concerns InfectionOnset DateLast IndicatedResolved XwyjKAEU24ssessment Noted TimePHQ-9 Depression Total Score: 3:03 PM CSTdocumented as of this encounter Care Teams Team MemberRelationshipSpecialtyStart DateEnd Date Kiana Dennis [address] [place] [address] PCP - GeneralFamily Practice02/25/25 Raphael Solo MD 9 [place] [address] Orthopedics03/06/15 Isac Mayorga MD [address] [facility] [address] [place] [address] MDCardiology03/07/15 Henry Motta MD [address] [facility] [address] [place], [place] [address] MDInternal Medicine04/17/15 Tania Arevalo MD [address] [place] [address] [phone] MDOphthalmology06/16/15 Paolo Ferris MD [address] [facility] 284 [place], [place] [address] Referring PhysicianInternal Medicine06/28/15 Rachid Han MD [address] [facility] [address] [place], [place] [address] MDOphthalmology07/05/15 Ave Del Toro MD [address] [place] [address] 88 [place], [place] [address] MDRheumatology07/20/15 Aleks Phillips MD [address] [place], [place] [address] RJMfmgikbyokeic96/17/15 Aliyah Rust, GENERAL INTERNAL MEDICINE DOCTOR VEGETABLE CUTTER [address] [place], [place] [phone] Nurse PractitionerClinical Nurse Specialist03/19/16 Issac Graham MD [address] [place] [address] MDNeurolog11/25/16 Ana Maria Hwang MD 420 [facility] 101 [place], [place] [address] MDInternal Eyihsbhc24/26/17 Marcial Astudillo MD [facility] [address] [facility] 98 [place], [place] [address] ResidentStudent in organized health care education/training utuylot06/6/17 Ekaterina Reardon MD [address] [place] [address] Neurology02/03/18 Raphael Teresa MD [address] [place] [address] Orthopaedic Surgery03/12/18 Smooth Hussein MD [address] [place] [address] MDAnesthesiology04/27/18 La Lopez MD [address] [place] [address] MDNeurology1 Issac Graham MD [address] [place] [address] Referring PhysicianNeurology1 Natalie Vasques MD [address] [place] [address] [phone] Assigned PCP02/25/21 Mat Sanchez Jr., MD [address] [place] [address] [phone] ResidentStudent in organized health care education/training /25/21 Hussein Roth, RIKI Registered Nurse02/15/22 Lisa Tolbert PA-C Physician AssistantCardiovascular Disease04/02/22 Lisa Tolbert PA-C Physician AssistantCardiovascular Disease04/02/22 Yamila Alas OD [address] [place] [address] [phone] Optometry06/26/22 Robyn Walter, JEWISH HISTORY PROFESSOR [address] 657315 Nurse PractitionerCardiovascular Disease08/09/22 Vonnie Sweeney MD [address] [place], [place] [address] MDAnesthesiology12/18/22 Yamila Alas, OD [address] [facility] [address] [place], [place] [address] Optometry05/12/23 Renelson, Leonidas Night RT06/27/23 Shaggy Cintron MD [address] [place], [place] [phone] Assigned Neuroscience Divflqjm76/7/23 Delonte Moody MD [address] [place] [address] HloidbuvlIcghpxfmbmgky16/6/23 Lucas Veliz MD 420 [facility] 396 [place], [place] [address] MDOtolaryngology02/04/24 Dayron Sanchez, AuD [address], [place] [address] Audiology02/04/24 Ty Grewal MD [address] [address] [facility]04/29/24 Otilia Rendon [facility] PharmacistPharmacist08/02/24 Oitlia Rendon [facility] Nzatxmjvqi87/8/24 Henry Motta MD [address] [facility] [address] [place], [place] [address] MDCritical Care04/26/25 Lucas Veliz MD [address] [facility] [address] [facility] [address] [place], [place] [address] Assigned Surgical Provider05/09/25 Nany Solitario NP [address] [place] [address]75 Assigned Heart and Vascular Provider08/09/25documented as of this encounter
--- OUTSIDE RECORDS SUMMARY | 2025-11-06 10:15 | XMS_ITS | Clinical Summary ---
Author Organization [facility] Address [address] [place] [id number] Care Team Providers Care Baggage Checker Name Role Phone Nini Best Primary Care Provider Unavailab le Allergies Active AllergyReactionsCriticalityNoted DateCommentsAlcohol*Qioqbzu4806/29/2025 per physician order review. Aspirin, ZkywokzmJrnl62/11/2010 G.I Bleed. Bupropion*Ydmoagy8706/29/2025 per physician order review. TnyriomTxgf55/11/2010 Triggers a migraine headache. ZmxagyskCvxfnftehm33/22/2022Estrogens*Ltydtcu2706/29/2025 per physician order review. Hydrocodone*Hptjtca7206/29/2025 per physician order review. Hydroxyzine*Scwffcx1306/29/2025 per physician order review. Xpaapgm6908/27/2010 G.I . Upset./Rash LzoorvoozqcgUwzuAuxf46/11/2010Mirtazapine*Jfsmpkb6006/29/2025 per physician order review. Nsaids (Non-Steroidal Anti-Inflammatory Drug)High08/27/2010 G.I bleed Sulfamethoxazole-BwubokjwbfknDeppvowyemeLmxa76/11/2010 Rash, hives MupinqrdzfiLlvt68/11/2010 Made her H/A worse. Medications MedicationSigDispense QuantityRefillsLast FilledStart DateEnd DateStatus montelukast (SINGULAIR) 10 mg tablet Take 10 mg by mouth once daily.ctive Senna Plus 8.6-50 mg tablet Indications:constipationTake 1 Tablet by mouth once daily if needed for Constipation.5Active omeprazole (PRILOSEC) 40 mg Delayed-Release capsule Indications:gastroesophageal reflux diseaseTake 40 mg by mouth two times daily. 06/10/2025tive Daily-Tiffanie tablet Take 1 Tablet by mouth once daily.01/07/2022ctive hydrocortisone (CORTEF) 10 mg tablet Indications:primary adrenocortical insufficiencyTake 10 mg by mouth once daily. 06/10/2025tive fluticasone (50 mcg per actuation) nasal solution (FLONASE) Inhale 2 Sprays into affected nostril(s) once daily.06/25/2021ctive ergocalciferol (VITAMIN D2; DRISDOL) 50,000 unit capsule Take 50,000 units by mouth every Friday.06/10/2025tive diclofenac topical (VOLTAREN) 1 % gel Apply 2 g topically to affected area(s) four times daily. To bilateral hips. 01/25/2022ctive acetaminophen (TYLENOL) 325 mg tablet Take 325 mg by mouth three times daily. 7:00 am, 1:00pm and 7:00pm06/10/2022 Active lidocaine 4 % topical patch Apply 1 Patch on dry, clean, hairless skin once daily. 1 patch 1 time per day every day at 7 am Apply patch to lower back. On for 12 hours, off for 12 hours. 06/10/2025tive melatonin 5 mg tab tablet Take 5 mg by mouth at bedtime.Active rosuvastatin (CRESTOR) 20 mg tablet Indications:Acute on chronic congestive heart failure, unspecified heart failure type (HC)Take 1 Tablet (20 mg) by mouth at bedtime. 10 Tablet 02/11/2022ctive rimegepant (Nurtec ODT) 75 mg orally disintegrating tablet Indications:migrainePlace 75 mg on the tongue once daily if needed for Headache. 05/04/2025tive cholecalciferol, Vitamin D3, 5,000 unit tab tablet Take 5,000 units by mouth once daily.Active apixaban (ELIQUIS) 5 mg tablet Indications:paroxysmal atrial fibrillationTake 5 mg by mouth two times daily. 06/10/2025tive gabapentin (NEURONTIN) 400 mg capsule Indications:Lumbago with sciatica, right sideTake 400 mg by mouth once daily. 06/10/2025tive fluticasone ain-ayspgylrfpnh-lffdcjjuan (Trelegy Ellipta) 100-62.5-25 mcg inhaler Inhale 1 Puff by mouth once daily.08/15/2023ctive sertraline (ZOLOFT) 25 mg tablet Take 25 mg by mouth once daily.10/15/2023ctive acetaminophen (TYLENOL) 325 mg tablet Take 325 mg by mouth each time if needed for Pain. 1 tablet by mouth as needed every 8 hours for back pain.06/10/2025tive amiodarone (CORDARONE) 200 mg tablet Indications:paroxysmal atrial fibrillationTake 200 mg by mouth once daily. Indications: paroxysmal atrial bjhcoctdsxaj67/25/2025tive ammonium lactate 12 % cream Apply 1 unit topically to affected area(s) two times daily. apply to affected areas.06/10/2025tive levothyroxine (SYNTHROID) 25 mcg tablet Indications:hypothyroidismTake 25 mcg by mouth once daily. Indications: a condition with low thyroid hormone draxut3306/10/2025tive empagliflozin (Jardiance) 10 mg tablet Indications:type 2 diabetes mellitusTake 10 mg by mouth once daily. Indications: type 2 diabetes /25/2025tive levalbuterol (XOPENEX) 1.25 mg/3 mL nebulizer solution Inhale 1 Neb via a nebulizer 4 times daily if needed for Shortness Of Breath. 06/10/2025tive Calcium-Cholecalciferol (D3) 600 mg-10 mcg (400 unit) chew Chew 1 Tablet by mouth two times daily. 1 tablet 2 times per day.06/10/2025 Active metoprolol tartrate (LOPRESSOR) 37.5 mg tablet Indications:ventricular rate control in atrial fibrillationTake 37.5 mg by mouth two times daily. Indications: ventricular rate control in atrial fibrillation 06/27/2025tive naloxone (NARCAN) 4 mg/actuation nasal spray Inhale 1 [place] into affected nostril(s) each time if needed (overdose). 1 spray into nose as needed. CALL NURSE FIRST.06/10/2025tive cyanocobalamin (VITAMIN B12) 500 mcg tablet Take 500 mcg by mouth once daily.06/10/2025tive polyethylene glycoL (MIRALAX) 17 gram/scoop powder Indications:constipationMix 17 g in liquid then take by mouth once daily if needed for Constipation. Indications: kbfbaexdevie25/25/2025tive potassium chloride (MICRO-K) 10 mEq Controlled-release capsule Take 10 mEq by mouth once daily.5Active traMADoL (ULTRAM) 50 mg tablet Indications:painTake 0.5 Tablets by mouth every 12 hours if needed for Pain. Indications: pain5Active sodium chloride (OCEAN) 0.65 % nasal solution Indications:Dysfunction of both eustachian tubesInhale 1 [place] in both nostrils two times daily. Indications: Dysfunction of both eustachian tubes06/10/2025 Active tiotropium bromide (Spiriva Respimat) 2.5 mcg/actuation mist for inhalation Inhale 2 Puffs by mouth once daily.5Active calcium carbonate (Tums) 200 mg calcium (500 mg) chewable tablet Chew 500 mg by mouth every 6 hours if needed for Heartburn.5Active vitamin B complex (B-COMPLEX VITAMIN) tablet Take 1 Tablet by mouth once daily.06/10/2025tive ascorbic acid (vitamin C) (Vitamin C) 1,000 mg tablet Take 1,000 mg by mouth two times daily.5Active guaFENesin 200 mg/5 mL liqd Indications:coughTake 10 mL by mouth every 4 hours if needed (cough). Indications: cough5Active hydrocortisone (CORTEF) 10 mg tablet Indications:primary adrenocortical insufficiencyTake 5 mg by mouth once daily in the evening. Indications: a condition where the adrenal glands produce less hormones called Columbia's /25/2025Active metFORMIN controlled release (FORTAMET) 500 mg tablet Indications:type 2 diabetes mellitusTake 500 mg by mouth once daily with a meal. Indications: type 2 diabetes iiuhsben24/11/2025Active torsemide (DEMADEX) 20 mg tablet Indications:edemaTake 60 mg by mouth once daily. Indications: visible water ibfmcuqfl40/05/2025Active divalproex (DEPAKOTE) 500 mg Delayed-Release tablet Indications:epilepsyTake 4 Tablets by mouth at bedtime. 2000mg dose daily total Indications: arsrryuu89/25/2025Active Active Problems ProblemNoted DateDiagnosed DateClass 2 severe obesity with serious comorbidity in adult3Pneumonia of right lower lobe due to infectious organism 3Acute qyzcjgdqhdnzv14/17/2022Chronic diastolic CHF (congestive heart failure)08/03/2022trial fibrillation with RVR08/03/2022OPD on long-term inhaled steroid natrfir6407/08/2022hronic hypoxemic respiratory vtqyujr6807/08/2022 Cellulitis of both lower ipgtudfpylu45/22/2022CP (advance care planning) 02/26/2022 Overview (02/26/2022): Patient has identified Specific Treatment Preferences: Yes How have preferences been verified: POLST Specific Treatment Preferences: a.) Code Status: CPR/Attempt Resuscitation b.) Goals of Treatment: i. Full Treatment: Use intubation, advanced airway interventions, and mechanical ventilation as indicated. Transfer to hospital and/or intensive care unit if indicated. All patients will receive comfort- focused treatments. TREATMENT PLAN: Full treatment including life support measures in the intensive care unit. c.) Interventions and Treatments: i. Artificially Administered Nutrition and Hydration: defined trial period of artificial nutrition by tube ii. Antibiotics: - Use IV/IM antibiotic treatment Manually signed by Samantha Levine RN & Gemini Wang on 02/26/2022. Opioid type dependence, continuous use02/11/2022Encounter for palliative care 02/01/2022cute respiratory failure with hypoxia and xrnepbhqvhg06/17/2022 Chfyqig7201/31/2022drenal pynwqsvqanera92/17/2022Chronic pain01/31/2022Elevated ahevvmsk68/17/2022cute on chronic diastolic congestive heart ohclekc2001/31/2022 PNA (pneumonia)01/31/20225422Xfiketl78/17/2022 Overview (08/26/2025): Diagnosis Code replaced due to regulatory update Rheumatoid sskokizzj32/09/2020Nonintractable epilepsy with complex partial ixxwycmx24/08/3523Jijrxdcbqjj62/04/2019Secondary adrenal vtbxtjjpiliej04/16/2017 Paroxysmal atrial bhiquyyaeutt66/01/2016PTSD (post-traumatic stress disorder) 04/09/20161248Jpokmke39/22/2015 Resolved Problems ProblemNoted DateDiagnosed DateResolved KdezLbjuvu23 Encounters DateTypeDepartmentCare EalqVcuvgnocaqn04/06/2025Home Care Visit [facility] [address] [place] [address] Jeff Jung, OT CARE GZKFRKESWYAV01/04/2025 3:00 PM CSTHome Care Visit [facility] [address] [place] [address] Jeff Jung, OT OT - OASIS OTFMSMKJD00/02/2025Home Care Visit [facility] [address] [place] [address] Jeff Jung, OT CARE EFQQWOORXZSS76/31/2025 2:30 PM CDTHome Care Visit [facility] [address] [place] [address] Jeff Jung, OT OT - EDEMA/LYMPHEDEMA HOME VISIT09/15/2025Home Care Visit [facility] [address] [place] [address] Jeff Jung, OT CARE SLFFVJDLALGV50/30/2025Home Care Visit [facility] [address] [place] [address] Jeff Jung, OT CARE KAPWIROFMRRR78/28/2025Home Care Visit [facility] [address] [place] [address] Jeff Jung, OT CARE RXKENUQSKVQE16/23/2025Lab Requisition [facility] [phone] Alma Echavarria MD 09/06/2025Lab Requisition [facility] [phone] Alma Echavarria MD 09/05/2025 10:00 AM CDTHome Care Visit [facility] [address] [place] [address] Jeff Jung, OT OT - EDEMA/LYMPHEDEMA HOME VISIT09/05/2025Home Care Visit [facility] [address] [place] [address] Jeff Jung, OT CARE AXFFGREVZMUE48/15/2025Home Care Visit [facility] [address] [place] [address] Jeff Jung, OT CARE IGEVVQOYOEJU02/15/2025Home Care Visit [facility] [address] [place] [address] Jeff Jung, OT CARE HLJAJIRBYOAN99/14/2025 10:15 AM CDTHome Care Visit [facility] [address] [place] [address] Jeff Jung, OT OT - INITIAL WFRALJMHEM60/14/2025 9:00 AM CDTHome Care Visit [facility] [address] [place] [address] Aaliyah Gonzalez, PT PT - DISCIPLINE OHVFCXAFU47/14/2025Home Care Visit [facility] [address] [place] [address] Aaliyah Gonzalez, PT CARE OQTOQRRLMXZH13/07/2025 12:45 PM CDTHome Care Visit [facility] [address] [place] [address] Aaliyah Gonzalez, PT PT - OASIS RESUMPTION OF CARE08/23/2025Home Care Visit [facility] [address] [place] [address] Aaliyah Gonzalez, PT CARE ERGECBZCVMQR73/03/2025Home Care Visit [facility] [address] [place] [address] Richelle Mercedes, RN SN - OASIS TIFILJQA85/03/2025Home Care Visit [facility] [address] [place] [address] Jeff Jung, OT CARE TRANSITION NOTE08/19/2025Nurse Triage [facility] [address] [place] [address] Estrella Besth [facility]08/17/2025Home Care Visit [facility] [address] [place] [address] Jeff Jung, OT OT - IZOOUPSXIVUP22/30/2025Home Care Visit [facility] [address] [place] [address] RenardIrmay CARE AFEGBLONGWTH77/25/2025Home Care Visit [facility] [address] [place] [address] Jeff Jung, OT CARE QOLSCEZMIJWS50/25/2025Home Care Visit [facility] [address] [place] [address] Jeff Jung, OT CARE CABBZILCQAMM67/23/2025 4:30 AM CDTHome Care Visit [facility] [address] [place] [address] Jeff Jung, OT OT - EDEMA/LYMPHEDEMA HOME VISITfrom Last 3 Months Family History Medical HistoryRelationNameCommentsDiabetesBrotherHeart attackFatherdied of [place] Heart DiseaseMaternal Grandmotherbicuspid aortic valveRelationNameStatusComments BrotherFatherMaternal Grandmother Social History Tobacco UseTypesPacks/DayYears UsedDateSmoking Tobacco: Every DayCigarettes0.323 Smokeless Tobacco: Never Comments:quit in 1996. Alcohol UseStandard Drinks/WeekCommentsNo0 (1 standard drink = 0.6 oz pure alcohol)Only at holidays.Social ConnectionsAnswerDate RecordedDo you often feel lonely or isolated from those around you?Financial Resource Strain AnswerDate RecordedDifficulty of Paying Living Cmfbgiuz311/23/2023ifficulty of Paying Living ExpensesNot on file11/08/2023Food InsecurityAnswerDate RecordedDo you worry your food will run out before you are able to buy more? Transportation NeedsAnswerDate RecordedDoes lack of transportation keep you from medical appointments?oes lack of transportation keep you from work, meetings or getting things that you need?Housing StabilityAnswerDate RecordedWhat is your housing situation today?Interpersonal Safety AnswerDate RecordedAre you being hit, kicked, pushed or yelled at (see row info)?No05/06/2024Interpersonal Safety Abuse 12 - 18Not on file05/06/2024 Interpersonal Safety Ambulatory VulnerabilityNot on file05/06/2024Utilities AnswerDate RecordedDo you have trouble paying for utilities (for example, heat, electricity, water, phone)?regnantCommentsNoSex and Gender InformationValueDate RecordedSex Assigned at BirthNot on fileLegal SexFemale 11/30/2012 7:58 AM CSTGender IdentityNot on fileSexual OrientationNot on file Last Filed Vital Signs Vital SignReadingTime TakenCommentsBlood Ylbzxnqp442/5909/20/2025 4:05 PM 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 Mcdlf5385 4:05 PM WGRZybavhuabav16.1 ??C (97 ??F)09/20/2025 4:05 PM 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 Respiratory Rrow742911/20/2024 4:05 PM CSTOxygen Bghmqcihvy60%09/20/2025 4:05 PM CSTonstite nursing informed.Inhaled Oxygen Concentration--Lqiray25.6 kg (206 lb 6.4 oz)09/20/2025 4:05 PM NIXYeahto853 cm (5' 3)05/06/2024 6:20 PM CDTBody Mass Index36.56005/06/2024 6:20 PM CDT Plan of Treatment Health MaintenanceDue DateLast DoneCommentsTetanus xtmjled4903/03/1968Depression screening for age 12+1969BMI (ht and wt on same day) for age 18+1975 Hepatitis C screening for age 18-7903/03/1975Pneumococcal series for age 50+ (1 of 2 - PCV)1976Colonoscopy through age 75003/03/2002Mammogram for age 45-75 2002RSV vaccine for adults or (1 - Risk 50-74 years 1-dose series)2007Zoster (shingles) series for age 50+ (1 of 2)2007DEXA/DXA scan for age 65+2022Medicare Wellness for age 65+2022OVID-19 vaccine series (2024- season)509/, 09/24/2023, 10/28/2022, Additional history existsInfluenza Vaccine (#1)07/18/2025Lipids for age 45-75 8001/09/2023, 02/01/2022Hepatitis B series for 19+Aged OutNo longer eligible based on patient's age to complete this topic Procedures Procedure NamePriorityDate/TimeAssociated DiagnosisCommentsVALPROIC ACID FREE Vacjpfd0609/13/2025 10:45 AM CDT Chronic diastolic (congestive) heart failure (HC) Localization-related (focal) (partial) symptomatic epilepsy and epileptic syndromes with complex partial seizures, not intractable, without status epilepticus (HC) Hypothyroidism, unspecified Type 2 diabetes mellitus without complications (HC) Vitamin D deficiency, unspecified Deficiency of other specified B group vitamins VALPROIC ACID,T AND JEgfhvtu64/28/2025 10:45 AM CDT Chronic diastolic (congestive) heart failure (HC) Localization-related (focal) (partial) symptomatic epilepsy and epileptic syndromes with complex partial seizures, not intractable, without status epilepticus (HC) Hypothyroidism, unspecified Type 2 diabetes mellitus without complications (HC) Vitamin D deficiency, unspecified Deficiency of other specified B group vitamins COMP METABOLIC FROYUOmnpxnj55/28/2025 10:45 AM CDT Chronic diastolic (congestive) heart failure (HC) Localization-related (focal) (partial) symptomatic epilepsy and epileptic syndromes with complex partial seizures, not intractable, without status epilepticus (HC) Hypothyroidism, unspecified Type 2 diabetes mellitus without complications (HC) Vitamin D deficiency, unspecified Deficiency of other specified B group vitamins VITAMIN D 25 (DEFICIENCY)Adqnrwu4509/13/2025 10:45 AM CDT Chronic diastolic (congestive) heart failure (HC) Localization-related (focal) (partial) symptomatic epilepsy and epileptic syndromes with complex partial seizures, not intractable, without status epilepticus (HC) Hypothyroidism, unspecified Type 2 diabetes mellitus without complications (HC) Vitamin D deficiency, unspecified Deficiency of other specified B group vitamins VITAMIN L81Btvvjdn50/28/2025 10:45 AM CDT Chronic diastolic (congestive) heart failure (HC) Localization-related (focal) (partial) symptomatic epilepsy and epileptic syndromes with complex partial seizures, not intractable, without status epilepticus (HC) Hypothyroidism, unspecified Type 2 diabetes mellitus without complications (HC) Vitamin D deficiency, unspecified Deficiency of other specified B group vitamins TSH WITH HDJVIYRyiywgt05/28/2025 10:45 AM CDT Chronic diastolic (congestive) heart failure (HC) Localization-related (focal) (partial) symptomatic epilepsy and epileptic syndromes with complex partial seizures, not intractable, without status epilepticus (HC) Hypothyroidism, unspecified Type 2 diabetes mellitus without complications (HC) Vitamin D deficiency, unspecified Deficiency of other specified B group vitamins HEMOGLOBIN I4PRekspab77/28/2025 10:45 AM CDT Chronic diastolic (congestive) heart failure (HC) Localization-related (focal) (partial) symptomatic epilepsy and epileptic syndromes with complex partial seizures, not intractable, without status epilepticus (HC) Hypothyroidism, unspecified Type 2 diabetes mellitus without complications (HC) Vitamin D deficiency, unspecified Deficiency of other specified B group vitamins CBC W PLT NO FPNOLmsfdce43/28/2025 10:45 AM CDT Chronic diastolic (congestive) heart failure (HC) Localization-related (focal) (partial) symptomatic epilepsy and epileptic syndromes with complex partial seizures, not intractable, without status epilepticus (HC) Hypothyroidism, unspecified Type 2 diabetes mellitus without complications (HC) Vitamin D deficiency, unspecified Deficiency of other specified B group vitamins LIPID PANELEarly AM01/09/2023 7:41 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 (5.7% to 6.4%) ? Indicates prediabetes (>=6.5%) Confirms diabetes Falsely low levels may be seen with: Recent Transfusion, Recent Significant Blood Loss, Hemolytic Diseases, or Falsely elevated levels may be seen with: Untreated Anemias, Splenectomy Authorizing ProviderResult TypeResult StatusSatamara Echavarria MDCHEMISTRY Final ResultPerforming OrganizationAddressCity/[facility] CodePhone Number [address] [address] * TSH WITH REFLEX (09/13/2025 10:45 AM CDT)ComponentValueRef RangeTest Method Analysis TimePerformed AtPathologist SignatureTSH3.230.27 - 4.20 uIU/mL 09/13/2025 12:06 PM CDTSMA[facility] SYSTEMpecw[facility]ern (Source) Anatomical Location / LateralityCollection Method / VolumeCollection Time Received TimeBloodBLOOD SPECIMEN / UnknownButterfly / Zlbuhbk2509/13/2025 10:45 AM CDT1 11:23 AM CDT Narrative [facility] - 09/13/2025 12:06 PM CDT In Adults, TSH values between 5.00 and 10.00 uIU/ml do not necessarily indicate the presence of Hypothyroidism. Correlation with clinical findings such as presence of goiter and/or Thyroperoxidase (TPO) Antibody may be helpful. For more information please refer to SUSAN 2004; 291: 228-238. Authorizing ProviderResult TypeResult StatusSatamara Echavarria MDCHEMISTRY Final ResultPerforming OrganizationAddressty/[facility] HospitalPhone Number [address] [address] * VITAMIN D 25 (DEFICIENCY) (09/13/2025 10:45 AM CDT)ComponentValueRef RangeTest MethodAnalysis TimePerformed AtPathologist SignatureVITAMIN D TOTAL77.920.0 - 80.0 ng/mL09/13/2025 7:45 PM CDGRE[facility] Specimen (Source)Anatomical Location / LateralityCollection Method / Volume Collection TimeReceived TimeBloodBLOOD SPECIMEN / UnknownButterfly / Unknown 09/13/2025 10:45 AM CDT1 11:23 AM CDT Narrative [facility] - 09/13/2025 7:45 PM CDT Vitamin D Status Deficiency: <20 ng/mL Insufficiency: ?20-29 ng/mL Sufficiency: ?30-80 ng/mL Possible Toxicity: >80 ng/mL Based on [employer] recommendations Biotin supplements may cause clinically significant interference for this test assay. ??If interference is suspected, it is strongly recommended that biotin is discontinued for at least one week prior to retesting. Authorizing ProviderResult TypeResult StatusAlma Echavarria MDSEND OUTS Final ResultPerforming OrganizationAddressCity/State/ZIP CodePhone Number [facility] [address] [address], * VALPROIC ACID,T AND F (09/13/2025 10:45 AM CDT)ComponentValueRef RangeTest MethodAnalysis TimePerformed AtPathologist SignatureVALPROIC ACID,TOTAL92.6 50.0 - 100.0 ug/mL09/13/2025 8:02 PM CDGRE[facility]ITALCENTRAL LABORATORYDATE OF LAST DOSENot Given09/13/2025 8:02 PM CDSMY[facility]-CENTRAL LABORATORYTIME OF LAST DOSENot Given09/13/2025 8:02 PM CDT [facility]ORATORYSpecimen (Source)Anatomical Location / LateralityCollection Method / VolumeCollection TimeReceived Time BloodBLOOD SPECIMEN / UnknownButterfly / Vfafucy2009/13/2025 10:45 AM CDT 09/13/2025 11:23 AM CDT Narrative Authorizing ProviderResult TypeResult StatusSatamara Echavarria MDCHEMISTRY Final ResultPerforming OrganizationAddressCity/State/ZIP CodePhone Number [facility] [address] [place] [address], * (ABNORMAL) CBC W PLT NO DIFF (09/13/2025 10:45 AM CDT)ComponentValueRef Range Test MethodAnalysis TimePerformed AtPathologist SignatureWHITE BLOOD COUNT3.9 (L)4.5 - 11.0 thou/cu mm09/13/2025 11:28 AM [facility]TS[facility] RED BLOOD COUNT4.424.00 - 5.20 mil/cu mm09/13/2025 11:28 AM CDTSMERCY HOSPITALHEMOGLOBIN12.012.0 - 16.0 g/dL09/13/2025 11:28 AM CDTSMERCY HOSPITALHEMATOCRIT39.633.0 - 51.0 %09/13/2025 11:28 AM CDT [facility]MCV9080 - 100 fL09/13/2025 11:28 AM CDTSMERCY HOSPITALMCH27.126.0 - 34.0 pg09/13/2025 11:28 AM CDNOR[facility]ENTERMCHC30.3(L)32.0 - 36.0 g/dL09/13/2025 11:28 AM CDT [facility]ALTHRDW16.1(H)11.5 - 15.5 %09/13/2025 11:28 AM CDNOR[facility] CENTERPLATELET NFTDG178369 - 440 thou/cu mm09/13/2025 11:28 AM CDTSMERCY HOSPITALMPV9.96.5 - 11.0 fL09/13/2025 11:28 AM CDNOR[facility] CENTERNRBC0.0%09/13/2025 11:28 AM CDNOR[facility] CENTERABS NRBC0.0thou /cu mm09/13/2025 11:28 AM CDPHILLIPS EYE INSTITUTEpecimen (Source)Anatomical Location / LateralityCollection Method / VolumeCollection TimeReceived TimeBloodBLOOD SPECIMEN / Unknown Butterfly / Zoavrli0609/13/2025 10:45 AM CDT1 11:23 AM CDT Narrative Authorizing ProviderResult TypeResult StatusAlma Echavarria MDHEMATOLOGY Final ResultPerforming OrganizationAddressCity/State/ZIP CodePhone Number [phone] [place] [address] * VALPROIC ACID FREE (09/13/2025 10:45 AM CDT)ComponentValueRef RangeTest Method Analysis TimePerformed AtPathologist SignatureVALPROIC ACID,FREE15.06.0 - 20.0 ug/mL09/13/2025 9:45 PM CDTALRED [facility]DI[facility] LAB[facility]ORY-CENTRAL LABORATORYDATE OF LAST DOSENot Given09/13/2025 9:45 PM CDSM[facility]-CENTRAL LABORATORYTIME OF LAST DOSENot Given09/13/2025 9:45 PM CDTALATRIUM HEALTHCENTRAL LABORATORYSpecimen (Source)Anatomical Location / Laterality Collection Method / VolumeCollection TimeReceived TimeBloodBLOOD SPECIMEN / UnknownButterfly / Boihcio7709/13/2025 10:45 AM CDT1 8:02 PM CDT Narrative Authorizing ProviderResult TypeResult StatusAlma Echavarria MDCHEMISTRY Final ResultPerforming OrganizationAddressCity/State/ZIP CodePhone Number [facility] [address] [address], * VITAMIN B12 (09/13/2025 10:45 AM CDT)ComponentValueRef RangeTest Method Analysis TimePerformed AtPathologist SignatureVITAMIN B121,847513 - 1,245 pg/mL09/13/2025 7:45 PM CDGRE[facility]WO[facility]ITALCENTRAL LABORATORYSpecimen (Source)Anatomical Location / LateralityCollection Method / VolumeCollection TimeReceived TimeBloodBLOOD SPECIMEN / UnknownButterfly / Avtzomr6809/13/2025 10:45 AM CDT1 11:23 AM CDT Narrative [facility] - 09/13/2025 7:45 PM CDT Biotin supplements may cause clinically significant interference for this test assay. If interference is suspected, it is strongly recommended that biotin is discontinued for at least one week prior to retesting. Authorizing ProviderResult TypeResult StatusAlma Echavarria MDCHEMISTRY Final ResultPerforming OrganizationAddressCity/State/ZIP CodePhone Number [facility] LABORATORY-CENTRAL LABORATORY [address] [place] [address], * (ABNORMAL) COMP METABOLIC PANEL (09/13/2025 10:45 AM CDT)ComponentValueRef RangeTest MethodAnalysis TimePerformed AtPathologist DobanadmtNAUWTZ488287 - 145 mmol/L1 12:06 PM CDTSMERCY HOSPITALPOTASSIUM3.53.5 - 5.1 mmol/L1 12:06 PM [facility]CHLORIDE94(L) 98 - 107 mmol/L1 12:06 PM [facility] HEALTHCO2,TOTAL 31(H)22 - 29 mmol/L1 12:06 PM [facility]ALTHANION ETF337 - 181 12:06 PM [facility] HEALTHGLUCOSE138(H) 70 - 99 mg/dL09/13/2025 12:06 PM [facility] HEALTHCALCIUM9.7 8.8 - 10.4 mg/dL09/13/2025 12:06 PM [facility] HEALTHComment: Reference ranges for this test were updated on 09/21/2024 to reflect our healthy population more accurately. Reference range changes are not retroactively applied to results, but previous results using the same methodology can be interpreted in the context of the new reference range. TCU925 - 23 mg/dL09/13/2025 12:06 PM [facility] HEALTHCREATININE 0.98(H)0.50 - 0.90 mg/dL09/13/2025 12:06 PM [facility] BUN/CREAT SRMHJ6264 - 12:06 PM [facility] eGFR63(L)>90 mL/min/1.85a66309/13/2025 12:06 PM [facility] Comment:As of 2022, eGFR is calculated by the CKD-EPI creatinine equation without race adjustment. ??eGFR can be influenced by muscle mass, exercise, and diet. ??The reported eGFR is an estimation onlyand is only applicable if the renal function is stable.ALBUMIN4.14.0 - 4.9 g/dL09/13/2025 12:06 PM CDNOR[facility] CENTERPROTEIN,TOTAL7.26.0 - 8.0 g/dL09/13/2025 12:06 PM CDT [facility] HEALTHBILIRUBIN,TOTAL0.40.0 - 1.2 mg/dL09/13/2025 12:06 PM CDTSMERCY HOSPITALALK MDWRFYWAOOI5988 - 104 IU/L1 12:06 PM CDTSMERCY HOSPITALALT (SGPT)7(L)10 - 35 IU/L1 12:06 PM CDNOR[facility]LAND MEDICAL CENTERAST (SGOT)2610 - 35 IU/L1 12:06 PM CDPHILLIPS EYE INSTITUTEpecimen (Source)Anatomical Location / LateralityCollection Method / VolumeCollection TimeReceived TimeBloodBLOOD SPECIMEN / UnknownButterfly / Oijpgxi4009/13/2025 10:45 AM CDT1 11:23 AM CDT Narrative Authorizing ProviderResult TypeResult StatusSandra Tatum Echavarria MDCHEMISTRY Final ResultPerforming OrganizationAddressCity/State/ZIP CodePhone Number [address] [address] * Lipid Panel (01/09/2023 7:41 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)ComponentValueRef RangeTest MethodAnalysis TimePerformed AtPathologist SignatureCHOLESTEROL,ZSHLD030750 - 199 mg/dL 01/09/2023 8:48 AM [facility]ENTERTRIGLYCERIDES98<150 mg/dL 01/09/2023 8:48 AM [facility]ENTERHDL RYDOFBHUHVP00>40 mg/dL 01/09/2023 8:48 AM [facility]ENTERNON-HDL IWIHIHYBFCO406<145 mg/dl01/09/2023 8:48 AM [facility]ENTERCHOL/HDL RATIO3.40 <4.50001/09/2023 8:48 AM [facility]ENTERLDL RXIAPSFURCT71 <=130 mg/dL01/09/2023 8:48 AM [facility] CENTERVLDL XLMAFVLHZML18<=30 mg/dL01/09/2023 8:48 AM [facility] PROVIDER ORDERED LXAAPZMRMRWP93/23/2023 8:48 AM [facility]ENTERpecimen (Source)Anatomical Location / LateralityCollection Method / VolumeCollection TimeReceived TimeBloodBLOOD SPECIMEN / UnknownVenipuncture / Mqcclsm0801/09/2023 7:41 AM CST01/09/2023 8:12 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 Narrative Authorizing ProviderResult TypeResult StatusPezorestes Mosley MDCHEMISTRYFinal ResultPerforming OrganizationAddressCity/State/ZIP CodePhone Number [facility] [address] [place] [address] from Last 3 Months or Most Recently Relevant to Health Maintenance Insurance * Guarantor: Gemini Wang TypeRelation to PatientDate of BirthPhone Billing AddressPersonal/AyrhkqUbvg1955 [id number] [facility] [address] Advance Directives TypeDate RecordedPatient RepresentativeExplanationPOLST02/26/2022 * DNR (Latest Code Status on File) Date ActivatedDate RqzzmbjoraiBwywoirn99/26/2023 3:36 AM11/15/2023 8:41 PM QuestionAnswerCommentsCode Status Discussion:* Reviewed Preferences * Full Code Date ActivatedDate XopbmcebmzrQaeqagbi91/22/2023 11:34 PM11/09/2023 4:57 PM QuestionAnswerCommentsCode Status Discussion:* Reviewed Preferences * DNR Date ActivatedDate InactivatedComments01/10/2023 1:21 PM2 7:43 PMQuestion AnswerCommentsCode Status Discussion:* Reviewed Preferences * Full Code Date ActivatedDate InactivatedComments01/08/2023 2:36 01/10/2023 1:21 PMQuestion AnswerCommentsCode Status Discussion:* Reviewed Preferences * Full Code Date ActivatedDate InactivatedComments08/03/2022 6:48 PM08/04/2022 5:33 PMper POLST on-file dated 02/26/2022QuestionAnswerCommentsCode Status Discussion:* Reviewed Preferences Care Teams Team MemberRelationshipSpecialtyStart DateEnd Date Nini Best PCP - General06/02/25
--- NOTE | 2025-11-06 10:48 | RESP.RT ---
Patient seen in ED, sitting up in bed, on OxyMask 5 Lpm, SaO2 96%, attempt to wean OxyMask to 2 Lpm, SaO2 decreased to 87%. Patient does not have Home Oxygen. Respiratory rate 20/minute, BBS, fine crackles through out, both bases diminished. Patient has good loose cough, swallowed secretions, will be able to clear secretions when present.
[2025-11-06 11:05] LABS: PCR FLU A Negative PCR FLU A (Negative); PCR FLU B Negative PCR FLU B (Negative); PCR RSV Negative PCR RSV (Negative); SARS PCR* Negative SARS-CoV-2 (Negative)
--- NOTE | 2025-11-06 11:17 | CRLHL7_ITS ---
For Patients: As a result of the Century Cures Act, medical imaging exams and procedure reports are released immediately into your electronic medical record. You may view this report before your referring provider. If you have questions, please contact your health care provider. INDICATION: Shortness of breath. TECHNIQUE: Chest AP. COMPARISON: 08/18/2025. FINDINGS: Heart size is magnified by the AP technique. An infiltrate is suspected within the retrocardiac aspect of the left lower lobe. The right lung is essentially clear. The pulmonary vasculature is normal. There is slight blunting of left costophrenic sulcus. There is extensive lumbar spine hardware. IMPRESSION: An infiltrate is suspected within the retrocardiac aspect of the left lower lobe. Dictated by Angel Henderson MD @ 11/06/2025 12:01:58 PM (Electronically Signed)
[2025-11-06 12:03] LABS: HCO3 VBG 40 mmol/L (21-28); Lactate Sepsis w/Reflex* 2.5 mmol/L (0.5-1.9); PCO2 VBG 57 mmHG (40-50); PO2 VBG < 30.1 mmHG (25-47); pH VBG 7.457 (7.32-7.43)
[2025-11-06 12:06] LABS: Hematocrit* 36.8 % (33.0-51.0); Hemoglobin* 10.9 gm/dL (12.0-16.0); Immature Granulocytes Abs Auto 0.05 K/uL (0.00-0.30); Immature Granulocytes Pct Auto 0.6 %; Mean Corpuscular HGB Conc 30 gm/dL (32-36); Mean Corpuscular Hemoglobin 26 pg (26-34); Mean Corpuscular Volume 87 fL (80-100); RDW Coefficient of Variation % 17.0 % (11.5-15.5); Red Blood Count* 4.21 m/uL (4.00-5.20); White Blood Count* 9.04 K/uL (4.50-11.00)
[2025-11-06] MEDS: HYDROCORTISONE SOD SUCCINATE 50 MG/ML inj 100 MG IVP (12:09)
[2025-11-06] MEDS: cefTRIAXone 1 GM in 0.9 % SODIUM CHLORIDE Mini-bag 100 ML IVPB ×2 (12:09→14:37)
[2025-11-06 12:11] LABS: Lymphocytes Absolute Auto 1.00 K/uL (0.90-2.90); Slide Review Reflex No
[2025-11-06] MEDS: AZITHROMYCIN 250 MG TABLET 500 MG PO (12:12)
--- NOTE | 2025-11-06 12:14 | ED.GENADULT ---
HPI - General Adult General Date Seen: 11/06/25 Chief complaint: Shortness of Breath/Dyspnea Stated complaint: Shortness of breath Time Seen by Provider: 11/06/25 10:47 History of Present Illness HPI narrative: Patient is a 70-year-old woman brought in by EMS with complaint of shortness of breath. She tells me she has been feeling poorly for about a week but worse today. She has had a cough, she is concerned about possible pneumonia as she has had that before. She has not noted fevers. She says she has her cough is productive but she is not sure which she is coughing up. She has chronic lower extremity edema and she says this is stable. She has had some chest pain with coughing. She has not had any vomiting or diarrhea, says she has been eating and drinking without difficulty. No significant tobacco history, has history of asthma and is prescribed inhalers although she is not sure when she took them last. Overall she is fairly poor historian, does not know her medical history medications and provides fairly limited answers to questions. Paramedics reported O2 sats in the 70s and 80s off oxygen, she was placed on oxygen and remains on 5 L by OxyMask. Related Data Home Medications ?Medication ?Instructions ?Recorded ?Confirmed acetaminophen 325 mg tablet 650 mg PO TID 06/21/25 11/06/25 apixaban 5 mg tablet (Eliquis) 5 mg PO BID 06/21/25 11/06/25 calcium 600 mg (as 1 tab PO BID 06/21/25 11/06/25 carbonate)-vitamin D3 10 mcg (400 unit) tablet divalproex 500 mg tablet,extended 2,000 mg PO HS 06/21/25 11/06/25 release 24 hr fluticasone fur. 100 mcg-umeclid 1 inh inhalation DAILY 06/21/25 11/06/25 62.5 mcg-vilant 25 mcg inhalat.powder (Trelegy Ellipta) hydrocortisone 10 mg tablet 10 mg PO DAILY 06/21/25 11/06/25 (Cortef) melatonin 5 mg tablet 5 mg PO HS insomnia 06/21/25 11/06/25 multivitamin with folic acid 400 1 tab PO DAILY 06/21/25 11/06/25 mcg tablet (Tab-A-Tiffanie) rosuvastatin 20 mg tablet 20 mg PO HS 06/21/25 11/06/25 sertraline 25 mg tablet 25 mg PO DAILY 06/21/25 11/06/25 levothyroxine 50 mcg tablet 50 mcg PO DAILY 08/19/25 11/06/25 omeprazole 40 mg capsule,delayed 40 mg PO BID 08/19/25 11/06/25 release ipratropium 0.5 mg-albuterol 3 mg 3 ml inhalation Q4H PRN wheezing 11/06/25 11/06/25 (2.5 mg base)/3 mL nebulization soln montelukast 10 mg tablet 10 mg PO DAILY 11/06/25 11/06/25 tramadol 50 mg tablet 25 mg PO Q12H PRN chronic pain 11/06/25 11/06/25 Previous Rx's ?Medication ?Instructions ?Recorded empagliflozin 10 mg tablet 10 mg PO QAM #30 tabs 06/27/25 (Jardiance) metformin 500 mg tablet,extended 500 mg PO DAILY #30 tabs 06/27/25 release 24 hr torsemide 20 mg tablet 60 mg (3 x 20 mg) PO DAILY 30 days 08/21/25 #90 tabs amiodarone 100 mg tablet 100 mg PO DAILY #30 tabs 08/22/25 potassium chloride 10 mEq 10 meq PO DAILY 60 days #60 caps 08/22/25 capsule,extended release Allergies Allergy/AdvReac Type Severity Reaction Status Date / Time aspirin Allergy Severe gi bleed Verified 06/20/25 22:23 codeine Allergy Severe Migraine Verified 06/20/25 22:23 cucumber Allergy Severe angioedema Verified 06/20/25 22:23 NSAIDS (Non-Steroidal Allergy Severe gi bleed Verified 06/20/25 22:23 Anti-Inflamma lactase Allergy Intermediate gi upset Verified 06/20/25 22:23 sulfamethoxazole (From Allergy Intermediate Hives Verified 06/20/25 22:23 Bactrim) sumatriptan Allergy Intermediate worsening Verified 06/20/25 22:23 headache trimethoprim (From Bactrim) Allergy Intermediate Hives Verified 06/20/25 22:23 levofloxacin Allergy Mild Rash Verified 06/20/25 22:23 alcohol Allergy Unknown Verified 11/06/25 10:49 bupropion Allergy Unknown Verified 11/06/25 10:49 Estrogens Allergy Unknown Verified 11/06/25 10:49 hydrocodone Allergy Unknown Verified 11/06/25 10:49 mirtazapine Allergy Unknown Verified 11/06/25 10:49 quetiapine (From Seroquel) Allergy Unknown Verified 11/06/25 10:49 Review of Systems Status of ROS: Reports: 10 or more systems reviewed and unremarkable except as noted in History and below [facility] Medical History Venous stasis dermatitis of both lower extremities ?I87.2 - Venous insufficiency (chronic) (peripheral) (ICD-10) Lymphedema ?I89.0 - Lymphedema, not elsewhere classified (ICD-10) Polypharmacy ?Z79.899 - Other supervisor long goods (current) drug therapy (ICD-10) History of pulmonary embolism ?Z86.711 - Personal history of pulmonary embolism (ICD-10) Epilepsy ?G40.909 - Epilepsy, unspecified, not intractable, without status epilepticus (ICD-10) Diabetes ?E11.9 - Type 2 diabetes mellitus without complications (ICD-10) Chronic adrenal insufficiency ?E27.40 - Unspecified adrenocortical insufficiency (ICD-10) History of COPD ?Z87.09 - Personal history of other diseases of the respiratory system (ICD-10) Obstructive sleep apnea ?G47.33 - Obstructive sleep apnea (adult) (pediatric) (ICD-10) 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 ?F06.70 - Mild neurocognitive disorder due to known physiological condition without behavioral disturbance (ICD-10) H/O stroke without residual deficits ?Z86.73 - Personal history of transient ischemic attack (TIA), and cerebral infarction without residual deficits (ICD-10) Transient ischemic attack (TIA) ?G45.9 - Transient cerebral ischemic attack, unspecified (ICD-10) Pulmonary embolus ?I26.99 - Other pulmonary embolism without acute cor pulmonale (ICD-10) Unspecified adrenocortical insufficiency ?E27.40 - Unspecified adrenocortical insufficiency (ICD-10) Diabetes type 2 ?E11.9 - Type 2 diabetes mellitus without complications (ICD-10) GERD without esophagitis ?K21.9 - Gastro-esophageal reflux disease without esophagitis (ICD-10) Chronic idiopathic constipation ?K59.04 - Chronic idiopathic constipation (ICD-10) PTSD (post-traumatic stress disorder) ?F43.10 - Post-traumatic stress disorder, unspecified (ICD-10) Anxiety ?F41.9 - Anxiety disorder, unspecified (ICD-10) Nonintractable epilepsy with complex partial seizures ?G40.209 - Localization-related (focal) (partial) symptomatic epilepsy and epileptic syndromes with complex partial seizures, not intractable, without status epilepticus (ICD-10) Rheumatoid arthritis ?M06.9 - Rheumatoid arthritis, unspecified (ICD-10) Acute on chronic diastolic (congestive) heart failure ?I50.33 - Acute on chronic diastolic (congestive) heart failure (ICD-10) Acute respiratory failure with hypoxia and hypercapnia ?J96.01 - Acute respiratory failure with hypoxia (ICD-10) ?J96.02 - Acute respiratory failure with hypercapnia (ICD-10) Opioid dependence ?F11.20 - Opioid dependence, uncomplicated (ICD-10) Cellulitis of both lower extremities ?L03.115 - Cellulitis of right lower limb (ICD-10) ?L03.116 - Cellulitis of left lower limb (ICD-10) Chronic hypoxemic respiratory failure ?J96.11 - Chronic respiratory failure with hypoxia (ICD-10) Chronic obstructive pulmonary disease on long-term inhaled steroid therapy ?J44.9 - Chronic obstructive pulmonary disease, unspecified (ICD-10) ?Z79.51 - assistant terminal manager (current) use of inhaled steroids (ICD-10) CHF (congestive heart failure) ?I50.9 - Heart failure, unspecified (ICD-10) Acute hyponatremia ?E87.1 - Hypo-osmolality and hyponatremia (ICD-10) Class 2 severe obesity with serious comorbidity in adult ?E66.812 - Obesity, class 2 (ICD-10) ?E66.01 - Morbid (severe) obesity due to excess calories (ICD-10) Seizure ?R56.9 - Unspecified convulsions (ICD-10) Paroxysmal atrial fibrillation ?I48.0 - Paroxysmal atrial fibrillation (ICD-10) Bicuspid aortic valve ?Q23.81 - Bicuspid aortic valve (ICD-10) Asthma ?J45.909 - Unspecified asthma, uncomplicated (ICD-10) Aortic aneurysm ?I71.9 - Aortic aneurysm of unspecified site, without rupture (ICD-10) Adrenal insufficiency ?E27.40 - Unspecified adrenocortical insufficiency (ICD-10) Surgical History H/O: hysterectomy ?Z90.710 - Acquired absence of both cervix and uterus (ICD-10) History of cholecystectomy ?Z90.49 - Acquired absence of other specified parts of digestive tract (ICD-10) Social History Narrative: Lives at [facility], sister Nevaeh is POA. Former smoker, no ETOH. DNR/DNI What is your current living situation?: unable to answer Problems where you live: unable to answer Problems where you live details: Pt unable to answer In the past 12 months, utilities in danger of being shut off: unable to answer In past 12 months, lack of transportation kept you from medical appts, meetings, work, or getting things needed for daily living: unable to answer In the past 12 mos, have been you worried that your food would run out before you had money to buy more?: unable to answer In the past 12 mos, the food you bought just didn't last and you didn't have money to buy more?: unable to answer Highest level of school completed/degree received: don't know Smoking Status: Never smoker Do you use any of these nicotine containing products: None Second hand tobacco smoke exposure: No How often do you have a drink containing alcohol: never AUDIT-C Alcohol total score: 0 Non-prescribed substance use: denies use Non-prescribed substance use details: Pt unable answer How often does anyone, including family, friends and others, physically hurt you: unable to answer How often does anyone, including family, friends and others, insult or talk down to you: unable to answer How often does anyone, including family, friends and others, threaten you with harm: unable to answer How often does anyone, including family, friends and others, scream or curse at you: unable to answer Exam Narrative: Exam Narrative: Vital signs reviewed In general, an alert, mildly ill-appearing elderly woman, she looks older than her stated age. Breathing comfortably at this time. Head: Normocephalic, atraumatic. Eyes: Sclera clear. Pupils equal and reactive. ENT: Mucous membranes moist. Neck: Supple without adenopathy. Heart: Regular rate and rhythm without murmur. Lungs: Focal crackles and rhonchi in the left mid and lower lung ramey. No significant wheezing. No increased work of breathing. Abdomen: Soft, nontender to palpation. Extremities: Well perfused, pulses intact. Moderate edema in both legs, mildly erythematous bilaterally which she says is baseline. No warmth or tenderness. Pulses intact bilaterally. Neurologic: Alert, conversant. Speech fluent, face symmetric. Moves all extremities equally. Skin: Warm, dry well perfused. Affect: Flat. Const: Vital Signs, click to edit/add: Vital Signs - 24 hr 11/06/25 10:17 11/06/25 10:19 11/06/25 10:19 Temperature 97.7 F Pulse Rate 70 70 Pulse Rate [Pulse Oximeter] 69 Respiratory Rate 20 Blood Pressure 106/67 Blood Pressure [Le ft Upper Arm] 106/67 Pulse Oximetry 74 L 78 L 90 Oxygen Delivery Me thod Room Air Room Air OxyMask Oxygen Flow Rate 11/06/25 10:20 11/06/25 10:20 11/06/25 10:32 Temperature Pulse Rate Pulse Rate [Pulse Oximeter] Respiratory Rate Blood Pressure 116/71 Blood Pressure [Le ft Upper Arm] Pulse Oximetry 92 92 88 Oxygen Delivery Me thod OxyMask OxyMask Oxygen Flow Rate 11/06/25 10:32 11/06/25 10:35 11/06/25 10:45 Temperature Pulse Rate 89 Pulse Rate [Pulse Oximeter] Respiratory Rate 20 Blood Pressure 116/71 Blood Pressure [Le ft Upper Arm] Pulse Oximetry 90 Oxygen Delivery Me thod OxyMask OxyMask OxyMask Oxygen Flow Rate 5 11/06/25 11:00 11/06/25 11:01 11/06/25 11:30 Temperature Pulse Rate 69 66 71 Pulse Rate [Pulse Oximeter] Respiratory Rate 20 Blood Pressure 104/67 Blood Pressure [Le ft Upper Arm] Pulse Oximetry 96 94 95 Oxygen Delivery Me thod OxyMask OxyMask OxyMask Oxygen Flow Rate 11/06/25 11:32 11/06/25 12:00 11/06/25 12:01 Temperature Pulse Rate 66 65 67 Pulse Rate [Pulse Oximeter] Respiratory Rate 18 16 Blood Pressure 103/65 116/66 Blood Pressure [Le ft Upper Arm] Pulse Oximetry 92 91 91 Oxygen Delivery Me thod OxyMask OxyMask OxyMask Oxygen Flow Rate 11/06/25 12:30 11/06/25 12:32 11/06/25 13:00 Temperature 97.6 F Pulse Rate 65 68 Pulse Rate [Pulse Oximeter] Respiratory Rate 18 18 Blood Pressure 119/64 Blood Pressure [Le ft Upper Arm] Pulse Oximetry 94 94 Oxygen Delivery Me thod OxyMask OxyMask Oxygen Flow Rate 11/06/25 13:01 Temperature Pulse Rate Pulse Rate [Pulse Oximeter] Respiratory Rate 16 Blood Pressure 117/69 Blood Pressure [Le ft Upper Arm] Pulse Oximetry Oxygen Delivery Me thod Oxygen Flow Rate Course Course ED Course: Patient presents with shortness of breath, hypoxia, focal lung findings. She is afebrile, vital signs are unremarkable aside from her O2 sats. She is satting well on 5 L of OxyMask with about 95% O2 saturations at the time of my evaluation of her. Labs drawn including blood cultures, at this time I do not see markers suggestive of sepsis. A portable chest x-ray by my review shows left-sided infiltrate, radiology report reviewed as well and they noted a left retrocardiac infiltrate. She has lower extremity edema which sounds to be chronic, she does have a history of diastolic heart failure, she also has a history of PE and is anticoagulated. History is less suggestive of PE. I gave her Rocephin and azithromycin for antibiotic coverage. I also gave her 100 mg of hydrocortisone as she has a history of adrenal insufficiency and is maintained on hydrocortisone at baseline. Labs are reviewed in their entirety. She has a very minimally elevated high sensitivity troponin of 22. She had an EKG which shows a sinus rhythm, the ventricular rate of 67. She have some diffuse ST depression in leads V4 5 and 6 as well as possibly 2 3 and F, there was a fair amount of baseline artifact in 2 and 3 which makes this difficult to evaluate. Comparison to an EKG from August of this year shows the same type of ST depression at least in the lateral leads. Other labs are notable for normal white blood cell count, chronic anemia with a hemoglobin of 10.9, normal renal function, normal electrolytes. Her blood gas shows a pH of 7.46 pCO2 57 and bicarb of 40. BNP is elevated 2950 although it looks like she is typically elevated even more than this. Procalcitonin is normal. Aside from the lactate of 2.5, other nor other markers for sepsis and I think given her congestive heart failure history and her peripheral edema that significant fluid boluses are likely to cause more harm than good. Care is discussed with the hospitalist. I have added on a regular troponin I at her request so that this can be trended. Patient will also have a CT scan of the chest to better delineate her pulmonary findings. Otherwise admitted to the hospitalist service. Diagnosis: Pneumonia. Hypoxia. Adrenal insufficiency. Vital Signs Vital signs: Initial Vital Signs Pulse Rate 70 11/06/25 10:17 Pulse Oximetry 74 L 11/06/25 10:17 Oxygen Delivery Method Room Air 11/06/25 10:17 Vital Signs Pulse Rate 70 11/06/25 10:17 Pulse Oximetry 74 L 11/06/25 10:17 Oxygen Delivery Method Room Air 11/06/25 10:17 Temperature 97.6 F 11/06/25 13:00 Pulse Rate 68 11/06/25 12:32 Respiratory Rate 16 11/06/25 13:01 Blood Pressure 117/69 11/06/25 13:01 Pulse Oximetry 94 11/06/25 12:32 Oxygen Delivery Method OxyMask 11/06/25 12:32 Oxygen Flow Rate 5 11/06/25 10:45 Medications Administered Medications: Discontinued Medications Generic Name Dose Route Start Last Admin Trade Name Freq PRN Reason Stop Dose Admin Azithromycin 500 mg 11/06/25 11:33 11/06/25 12:12 Azithromycin 250 Mg Tablet PO 11/06/25 11:34 500 mg ONCE ONE Administration Hydrocortisone Sodium Succinate 100 mg 11/06/25 11:33 11/06/25 12:09 Hydrocortisone Sod Succinate 50 Mg/Ml Inj IVP 11/06/25 11:34 100 mg ONCE ONE Administration Ceftriaxone Sodium 1 gm/ 100 mls @ 200 mls/hr 11/06/25 11:33 11/06/25 12:45 Sodium Chloride IVPB 11/06/25 12:02 Infused ONCE ONE Infusion Medical Decision Making Lab Data Lab results reviewed: Yes I reviewed the patient's lab results Labs: Lab Results 11/06/25 11/06/25 11/06/25 Range/Units 10:18 11:55 11:58 WBC 9.04 (4.50-11.00) K/uL RBC 4.21 (4.00-5.20) m/uL Hgb 10.9 L (12.0-16.0) gm/dL Hct 36.8 (33.0-51.0) % MCV 87 (80-100) fL MCH 26 (26-34) pg MCHC 30 L (32-36) gm/dL RDW Coeff of Nicci 17.0 H (11.5-15.5) % Plt Count 266 (140-440) K/uL Neut % (Auto) 75.5 H (42.0-72.0) % Lymph % (Auto) 10.8 L (20-44) % [place] % (Auto) 12.1 H (0.0-11.0) % Eos % (Auto) 0.4 (0.0-7.0) % Baso % (Auto) 0.6 (0.0-3.0) % Neut # (Auto) 6.80 (1.7-7.0) K/uL Lymph # (Auto) 1.00 (0.90-2.90) K/uL [place] # (Auto) 1.10 H (0.00-0.90) K/UL Eos # (Auto) 0.04 (0.00-0.50) K/uL Baso # (Auto) 0.05 (0.00-0.30) K/uL Abs Immat Gran (auto) 0.05 (0.00-0.30) K/uL Imm/Tot Granulo (auto) 0.6 % VBG pH 7.457 H (7.32-7.43) VBG pCO2 57 H (40-50) mmHG VBG pO2 < 30.1 (25-47) mmHG VBG HCO3 40 H (21-28) mmol/L Sodium 140 (135-149) mmol/L Potassium 4.4 (3.6-5.1) mmol/L Chloride 95 L (96-114) mmol/L Carbon Dioxide 40 H (20-32) mmol/L Anion Gap 5 L (7-15) mEq/L BUN 14 (7-30) mg/dL Creatinine 0.9 (0.5-1.5) mg/dL Estimated Creat Clear 44.54 Estimated GFR 70 ml/min Glucose 131 H (60-115) mg/dL Lactate 2.5 H (0.5-1.9) mmol/L Calcium 8.9 (8.4-10.6) mg/dL Phosphorus 3.9 (2.5-4.5) mg/dL Magnesium 2.1 (1.5-2.6) mg/dL Total Bilirubin 0.7 (0.1-1.5) mg/dL AST 24 (12-35) U/L ALT 14 (4-35) U/L Alkaline Phosphatase 73 (40-150) U/L POC Troponin I High Sensi 21.9 H* (2.9-13.0) pg/mL C-Reactive Protein 8.9 H (0.5-1.0) mg/dL NT-Pro-B Natriuret Pep 2950 H (See Note) pg/mL Total Protein 7.4 (6.0-8.3) g/dL Albumin 3.9 (3.3-5.0) g/dL Procalcitonin 0.05 (<0.50) ng/mL SARS-CoV-2 (PCR) Negative SARS-CoV-2 (Negative) Influenza Type A (PCR) Negative PCR FLU A (Negative) Influenza Type B (PCR) Negative PCR FLU B (Negative) RSV (PCR) Negative PCR RSV (Negative) Imaging Data Chest x-ray: Attestation: I have reviewed the pertinent imaging results. Radiologist's impression: Patient: Gemini Wang MR#: [id number] : 1955 Acct:[id number] Loc: ED Service Date: 11/06/[address]: Ordering Physician: Leti Matamoros M.D. Date of Service: 11/06/25 Procedure(s): XR chest 1V portable Accession Number(s): [id number] cc: Leti Matamoros M.D.; Provider,Not a Local~ For Patients: As a result of the Cures Act, medical imaging exams and procedure reports are released immediately into your electronic medical record. You may view this report before your referring provider. If you have questions, please contact your health care provider. INDICATION: Shortness of breath. TECHNIQUE: Chest AP. COMPARISON: 08/18/2025. FINDINGS: Heart size is magnified by the AP technique. An infiltrate is suspected within the retrocardiac aspect of the left lower lobe. The right lung is essentially clear. The pulmonary vasculature is normal. There is slight blunting of left costophrenic sulcus. There is extensive lumbar spine hardware. IMPRESSION: An infiltrate is suspected within the retrocardiac aspect of the left lower lobe. Dictated by Angel Henderson MD @ 11/06/2025 12:01:58 PM Discharge Plan Discharge Clinical Impression: Community acquired pneumonia Patient Disposition: Admitted As Inpatient Procedures ABG Interpretation ABG Results: 11/06/25 11:55 VBG pH 7.457 H VBG pCO2 57 H VBG pO2 < 30.1 VBG HCO3 40 H
[2025-11-06 12:26] LABS: Albumin* 3.9 g/dL (3.3-5.0); Chloride* 95 mmol/L (96-114)
[2025-11-06 12:27] LABS: Potassium* 4.4 mmol/L (3.6-5.1); Sodium* 140 mmol/L (135-149)
[2025-11-06 12:29] LABS: Alanine Aminotransferase* 14 U/L (4-35); Alkaline Phosphatase* 73 U/L (40-150); Anion Gap 5 mEq/L (7-15); Aspartate Amino Transferase* 24 U/L (12-35); Bilirubin Total* 0.7 mg/dL (0.1-1.5); Blood Urea Nitrogen* 14 mg/dL (7-30); Carbon Dioxide* 40 mmol/L (20-32); Creatinine* 0.9 mg/dL (0.5-1.5); Est. Creatinine Clearance* 44.54; Estimated Glomerular Filt Rate 70 ml/min; Total Protein* 7.4 g/dL (6.0-8.3)
[2025-11-06 12:30] LABS: Calcium* 8.9 mg/dL (8.4-10.6); Glucose* 131 mg/dL (60-115)
[2025-11-06 12:47] LABS: Procalcitonin* 0.05 ng/mL (<0.50)
[2025-11-06 12:53] LABS: NT Pro B Type NatriureticPept* 2950 pg/mL (See Note)
--- NOTE | 2025-11-06 13:01 | CRLHL7_ITS ---
For Patients: As a result of the 21st Century Cures Act, medical imaging exams and procedure reports are released immediately into your electronic medical record. You may view this report before your referring provider. If you have questions, please contact your health care provider. INDICATION: Shortness of breath. TECHNIQUE: CT chest PE was acquired with 100 cc Omnipaque 350 IV contrast. COMPARISON: CT chest dated 06/21/2025. FINDINGS: Heart and vasculature: No cardiomegaly, no pericardial effusion. Limited evaluation secondary to motion artifact, particularly in the bilateral lower lobes. No filling defects identified within the main, lobar, and contrast opacified portions of the visualized segmental pulmonary arteries. Several distal segmental and subsegmental pulmonary arteries are inadequately evaluated, particularly in the bilateral lower lobes. Atherosclerotic coronary artery calcifications. Lungs and pleura: Motion artifact. Mosaic attenuation of the lung parenchyma, may reflect sequelae of imaging during expiratory phase of respiration. No definite pulmonary infarcts are seen. Extensive bibasilar opacities, may reflect atelectasis, underlying pneumonia would be difficult to exclude. There are multiple spiculated pulmonary nodules, for example a 0.8 cm nodule in the posterior right upper lobe (series 5, image 48), which is new since prior study. Some of the prior nodules have resolved in the interim. Thyroid and lower neck: No suspicious thyroid nodule. Mediastinum/anais: Several mildly enlarged mediastinal lymph nodes, similar to prior study, favored to be reactive. Chest wall: No axillary lymphadenopathy. Upper abdomen: No acute abnormality. Bones: Multilevel degenerative changes of the spine. Bones are osteopenic. Partially visualized spinal fixation hardware. IMPRESSION: 1. Significantly limited study due to motion artifact and imaging during expiratory phase of respiration. No large central pulmonary embolus is identified. 2. No definite pulmonary infarct identified. Bibasilar airspace opacities, likely atelectasis, underlying pneumonia would be difficult to exclude. 3. Multiple pulmonary nodules, some of which are spiculated, measuring up to 0.8 cm in the posterior right upper lobe, new since prior study. Several pulmonary nodules seen on prior study have resolved in the interim. This may reflect an evolving infectious/inflammatory process, recommend follow-up CT chest in 3 months with appropriate breath hold. Please note that all CT scans at this facility use dose modulation, iterative reconstruction, and/or weight-based dosing when appropriate to reduce radiation dose to as low as reasonably achievable. Dictated by Deonna Pizano MD @ 11/06/2025 3:15:22 PM (Electronically Signed)
--- NOTE | 2025-11-06 13:47 | PM.IMHP1 ---
Assessment and Plan Assessment and plan (1) Acute hypoxemic respiratory failure: Problem comment: -requiring nasal cannula oxygen to keep sats greater than 88%. Known mild CO2 retainer. Oxygen supplementation with caution. -d/t CAP, long standing COPD, untreated ANTHONY Status: Acute (2) Community acquired pneumonia: Problem comment: -single-view x-ray suggests a left lower lobe pneumonia. basilar opacities noted on CT, spiculated nodules <1cm that are new? f/u close as outpatient. -increase Rocephin to 2 g Q 24, changed azithromycin to doxycycline -already on baseline steroids for adrenal insufficiency, giving stress does hydrocortisone over the next 24 hours. -nebs, RT consult Status: Acute (3) Chronic adrenal insufficiency: Problem comment: - on Hydrocortisone 10mg Qam and 5mg Qpm - ER gave 100 mg hydrocortisone IV push x1, continuing 50 mg of hydrocortisone q.6 over the next 24 hours Status: Acute (4) Elevated troponin: Problem comment: -assoc with ST depression -initial trop is 0.05 (elevated POC high sens noted) -monitoring, correct underlying insult for this likely developing type 2 NSTEMI -starting a beta-parker, 12.5 mg b.i.d. she is already on a statin. Aspirin is contraindicated. I also write for nitro p.r.n. Status: Acute (5) Elevated lactic acid level: Problem comment: -2.5 --> 1.4. no fluids given in ED. Status: Acute (6) COPD on long-term inhaled steroid therapy: Problem comment: -continue home Tresinai, p.r.n. duo kerri, p.r.n. beta agonist, RT consult -November 2024 pulmonary function testing showed FVC 50% of predicted at 1.3 L and FEV1 55% of predicted at 1.14 L -just saw her travel service consultant on 11/02 Status: Acute (7) 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: Problem comment: Green in June of 2025 was a 15. Status: Acute (8) Epilepsy: Problem comment: Continue home Depakote Status: Acute (9) Obstructive sleep apnea: Problem comment: -no current sleep study to review, last was 2014. Patient is not on CPAP. Status: Acute (10) (HFpEF) heart failure with preserved ejection fraction: Problem comment: -chronic, not in exacerbation -echo reviewed from June of 2025. EF 60-65%. Normal LV and RV function. Mild . Moderate TR. -just had a nucleolar stress test on 10/26/25. No reversible ischemia noted Status: Acute (11) Diabetes: Problem comment: - on Metformin and Jardiance as an outpatient, most recent A1C 6.7 in August of 2025 Status: Acute (12) Chronic a-fib: Problem comment: - Eliquis for stroke prophylaxis , [id number] -Maintained on amiodarone for rhythm control 10/26/2025 2:26 PM [employer] ? The nuclear stress test is negative for inducible myocardial ischemia or infarction. ? Left ventricular function is normal. ? The left ventricular ejection fraction at stress is 69%. ? In comparison, nuclear stress October 2024 was normal. Status: Acute (13) MRSA (methicillin resistant staph aureus) culture positive: Problem comment: 06/21/25 TATIANA Status: Acute Hospitalist- H&P: HPI History of Present Illness Date Seen: 11/06/25 Chief complaint: Shortness of breath Narrative: ADMISSION HISTORY AND PHYSICAL - HOSPITALIST Chief Complaint: dyspnea; getting worse. brought to ER by EMS HPI: rev'd ED HPI. -goes by Debbie. Packer, previously 15. Poor insight into her health. Cannot give many details. -known MRSA positive, from the [facility] Patient is a 70-year-old woman brought in by EMS (FROM [facility]) with complaint of shortness of breath. She tells me she has been feeling poorly for about a week but worse today. She has had a cough, she is concerned about possible pneumonia as she has had that before. She has not noted fevers. She says she has her cough is productive but she is not sure which she is coughing up. She has chronic lower extremity edema and she says this is stable. She has had some chest pain with coughing. She has not had any vomiting or diarrhea, says she has been eating and drinking without difficulty. No significant tobacco history, has history of asthma and is prescribed inhalers although she is not sure when she took them last. Overall she is fairly poor historian, does not know her medical history medications and provides fairly limited answers to questions. Paramedics reported O2 sats in the 70s and 80s off oxygen, she was placed on oxygen and remains on 5 L by OxyMask ER COURSE: CXR, labs, abx, steroids CODE STATUS: DNR/DNI PCP: Not local per EMR EMERGENCY CONTACT PLAN: sister and FERNIE (Yusra and Alex) I've updated the PFSH, medications and allergies in the Expanse tabs. INVESTIGATIONS: LABS/MICRO/ECG/IMAGING Afebrile. Blood pressure 117/69. Pulse rate 68. Respiratory rate is 16. Pulse ox 91% on 5 L per OxyMask CBC is unremarkable. There is no elevation in her total white blood cell count. Platelet count is 266. She has a baseline known anemia which is at its normal level at 10.9 PH is 7.45, pCO2 is elevated at 57, bicarb is elevated at 40 Chemistries are essentially unremarkable other than the elevated bicarb, renal function is normal. Lactate mildly elevated at 2.5, glucose 131. CRP is 8.9, procalcitonin is unremarkable, blood cultures have been drawn BNP 2900, this is better than her baseline. Mildly elevated high sensitivity trop POC at 21.9, baseline serum troponin pending UA is pending as are antigens for strep pneumo and Legionella Negative respiratory panel for COVID, flu, RSV Single-view chest [id number] for left lower lobe pneumonia EKG: ST depression in the inferior/lateral leads CTA: Extensive bibasilar opacities, may reflect atelectasis, underlying pneumonia would be difficult to exclude. There are multiple spiculated pulmonary nodules, for example a 0.8 cm nodule in the posterior right upper lobe (series 5, image 48), which is new since prior study. Some of the prior nodules have resolved in the interim. REVIEW OF SYSTEMS: 12-point ROS completed with patient and negative unless otherwise stated in HPI or below. PHYSICAL EXAM: CONSTITUTIONAL: Appears tired. Unwell. Not toxic GENERAL: Well nourished. Mild respiratory distress with shallow breathing. VITAL SIGNS: see record. HEENT: Sclerae are anicteric. No petechiae. CARDIAC: rhythm is regular. There is no S3 or rub. No harsh murmurs. Extremities reveal mild erythema and 1+ pitting edema. Patient states this is her baseline. NEURO: Speech is fluent. A brief neurologic exam is negative. SKIN: No rashes, petechiae, concerning changes PSYCHIATRIC: Flat. [facility] D[facility]: Continue home Denis GI: PO intake, IV PPI Time spent: Today I spent 75 minutes seeing the patient, discussing the patient with ER staff, reviewing Expanse and EPIC notes/diagnostics, discussing the care plan with our care time that includes social work, PT/OT, pharmacy, RT, residential and documenting my impressions and plan in the medical record. MEDICAL NECESSITY FOR HOSPITALIZATION Anticipated midnights in the hospital: 2 + Admitting diagnosis: Acute hypoxic respiratory failure, community-acquired pneumonia, acute adrenal insufficiency Risk of morbidity and mortality: high Acuity is characterized as high and reflected in: Age greater than 65, BMI 37, history of seizures, chronic anticoagulation, untreated ANTHONY, type 2 diabetes, from a long-term care, cognitive decline This patient will require hospital services as outlined in the assessment and plan in order to stabilize and be safely discharged to a lower level of care. Because of the risk and acuity as described above, this patient cannot be managed at a lower level of care. LENGTH OF STAY: 2 IP ? Anticipated LOS>2 midnights due to acuity of clinical presentation requiring inpatient level of care [facility] Medical History (Updated 11/06/25 @ 15:34 by Barbra Young MD) (HFpEF) heart failure with preserved ejection fraction ?I50.30 - Unspecified diastolic (congestive) heart failure (ICD-10) Extended spectrum beta lactamase (ESBL) resistance ?Z16.12 - Extended spectrum beta lactamase (ESBL) resistance (ICD-10) COPD on long-term inhaled steroid therapy ?J44.9 - Chronic obstructive pulmonary disease, unspecified (ICD-10) ?Z79.51 - senior care (current) use of inhaled steroids (ICD-10) Lung nodules ?R91.8 - Other nonspecific abnormal finding of lung field (ICD-10) Right ankle pain ?M25.571 - Pain in right ankle and joints of right foot (ICD-10) Venous stasis dermatitis of both lower extremities ?I87.2 - Venous insufficiency (chronic) (peripheral) (ICD-10) Lymphedema ?I89.0 - Lymphedema, not elsewhere classified (ICD-10) Polypharmacy ?Z79.899 - Other rat exterminator (current) drug therapy (ICD-10) History of pulmonary embolism ?Z86.711 - Personal history of pulmonary embolism (ICD-10) Epilepsy ?G40.909 - Epilepsy, unspecified, not intractable, without status epilepticus (ICD-10) Diabetes ?E11.9 - Type 2 diabetes mellitus without complications (ICD-10) Chronic adrenal insufficiency ?E27.40 - Unspecified adrenocortical insufficiency (ICD-10) Obstructive sleep apnea ?G47.33 - Obstructive sleep apnea (adult) (pediatric) (ICD-10) 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 ?F06.70 - Mild neurocognitive disorder due to known physiological condition without behavioral disturbance (ICD-10) H/O stroke without residual deficits ?Z86.73 - Personal history of transient ischemic attack (TIA), and cerebral infarction without residual deficits (ICD-10) Transient ischemic attack (TIA) ?G45.9 - Transient cerebral ischemic attack, unspecified (ICD-10) Pulmonary embolus ?I26.99 - Other pulmonary embolism without acute cor pulmonale (ICD-10) Unspecified adrenocortical insufficiency ?E27.40 - Unspecified adrenocortical insufficiency (ICD-10) Diabetes type 2 ?E11.9 - Type 2 diabetes mellitus without complications (ICD-10) GERD without esophagitis ?K21.9 - Gastro-esophageal reflux disease without esophagitis (ICD-10) Chronic idiopathic constipation ?K59.04 - Chronic idiopathic constipation (ICD-10) PTSD (post-traumatic stress disorder) ?F43.10 - Post-traumatic stress disorder, unspecified (ICD-10) Anxiety ?F41.9 - Anxiety disorder, unspecified (ICD-10) Nonintractable epilepsy with complex partial seizures ?G40.209 - Localization-related (focal) (partial) symptomatic epilepsy and epileptic syndromes with complex partial seizures, not intractable, without status epilepticus (ICD-10) Rheumatoid arthritis ?M06.9 - Rheumatoid arthritis, unspecified (ICD-10) Acute on chronic diastolic (congestive) heart failure ?I50.33 - Acute on chronic diastolic (congestive) heart failure (ICD-10) Acute respiratory failure with hypoxia and hypercapnia ?J96.01 - Acute respiratory failure with hypoxia (ICD-10) ?J96.02 - Acute respiratory failure with hypercapnia (ICD-10) Opioid dependence ?F11.20 - Opioid dependence, uncomplicated (ICD-10) Cellulitis of both lower extremities ?L03.115 - Cellulitis of right lower limb (ICD-10) ?L03.116 - Cellulitis of left lower limb (ICD-10) Chronic hypoxemic respiratory failure ?J96.11 - Chronic respiratory failure with hypoxia (ICD-10) Chronic obstructive pulmonary disease on long-term inhaled steroid therapy ?J44.9 - Chronic obstructive pulmonary disease, unspecified (ICD-10) ?Z79.51 - rat exterminator (current) use of inhaled steroids (ICD-10) CHF (congestive heart failure) ?I50.9 - Heart failure, unspecified (ICD-10) Acute hyponatremia ?E87.1 - Hypo-osmolality and hyponatremia (ICD-10) Class 2 severe obesity with serious comorbidity in adult ?E66.812 - Obesity, class 2 (ICD-10) ?E66.01 - Morbid (severe) obesity due to excess calories (ICD-10) Seizure ?R56.9 - Unspecified convulsions (ICD-10) Paroxysmal atrial fibrillation ?I48.0 - Paroxysmal atrial fibrillation (ICD-10) Bicuspid aortic valve ?Q23.81 - Bicuspid aortic valve (ICD-10) Asthma ?J45.909 - Unspecified asthma, uncomplicated (ICD-10) Aortic aneurysm ?I71.9 - Aortic aneurysm of unspecified site, without rupture (ICD-10) Adrenal insufficiency ?E27.40 - Unspecified adrenocortical insufficiency (ICD-10) Surgical History H/O: hysterectomy ?Z90.710 - Acquired absence of both cervix and uterus (ICD-10) History of cholecystectomy ?Z90.49 - Acquired absence of other specified parts of digestive tract (ICD-10) Social History Narrative: Lives at [facility], sister Nevaeh is POA. Former smoker, no ETOH. DNR/DNI What is your current living situation?: unable to answer Problems where you live: unable to answer Problems where you live details: Pt unable to answer In the past 12 months, utilities in danger of being shut off: unable to answer In past 12 months, lack of transportation kept you from medical appts, meetings, work, or getting things needed for daily living: unable to answer In the past 12 mos, have been you worried that your food would run out before you had money to buy more?: unable to answer In the past 12 mos, the food you bought just didn't last and you didn't have money to buy more?: unable to answer Highest level of school completed/degree received: don't know Smoking Status: Never smoker Do you use any of these nicotine containing products: None Second hand tobacco smoke exposure: No How often do you have a drink containing alcohol: never AUDIT-C Alcohol total score: 0 Non-prescribed substance use: denies use Non-prescribed substance use details: Pt unable answer How often does anyone, including family, friends and others, physically hurt you: unable to answer How often does anyone, including family, friends and others, insult or talk down to you: unable to answer How often does anyone, including family, friends and others, threaten you with harm: unable to answer How often does anyone, including family, friends and others, scream or curse at you: unable to answer Meds Home Medications and Allergies Home Medications ?Medication ?Instructions ?Recorded ?Confirmed ?Type acetaminophen 325 mg tablet 650 mg PO TID 06/21/25 11/06/25 History apixaban 5 mg tablet (Eliquis) 5 mg PO BID 06/21/25 11/06/25 History calcium 600 mg (as 1 tab PO BID 06/21/25 11/06/25 History carbonate)-vitamin D3 10 mcg (400 unit) tablet divalproex 500 mg tablet,extended 2,000 mg PO HS 06/21/25 11/06/25 History release 24 hr fluticasone fur. 100 mcg-umeclid 1 inh inhalation DAILY 06/21/25 11/06/25 History 62.5 mcg-vilant 25 mcg inhalat.powder (Trelegy Ellipta) hydrocortisone 10 mg tablet 10 mg PO DAILY 06/21/25 11/06/25 History (Cortef) melatonin 5 mg tablet 5 mg PO HS insomnia 06/21/25 11/06/25 History multivitamin with folic acid 400 1 tab PO DAILY 06/21/25 11/06/25 History mcg tablet (Tab-A-Tiffanie) rosuvastatin 20 mg tablet 20 mg PO HS 06/21/25 11/06/25 History sertraline 25 mg tablet 25 mg PO DAILY 06/21/25 11/06/25 History empagliflozin 10 mg tablet 10 mg PO QAM #30 tabs 06/27/25 11/06/25 Rx (Jardiance) metformin 500 mg tablet,extended 500 mg PO DAILY #30 tabs 06/27/25 11/06/25 Rx release 24 hr levothyroxine 50 mcg tablet 50 mcg PO DAILY 08/19/25 11/06/25 History omeprazole 40 mg capsule,delayed 40 mg PO BID 08/19/25 11/06/25 History release torsemide 20 mg tablet 60 mg (3 x 20 mg) PO DAILY 30 days 08/21/25 11/06/25 Rx #90 tabs potassium chloride 10 mEq 10 meq PO DAILY 60 days #60 caps 08/22/25 11/06/25 Rx capsule,extended release amiodarone 200 mg tablet 200 mg PO DAILY 11/06/25 11/06/25 History ipratropium 0.5 mg-albuterol 3 mg 3 ml inhalation Q4H PRN wheezing 11/06/25 11/06/25 History (2.5 mg base)/3 mL nebulization soln montelukast 10 mg tablet 10 mg PO DAILY 11/06/25 11/06/25 History tramadol 50 mg tablet 25 mg PO Q12H PRN chronic pain 11/06/25 11/06/25 History Allergies Allergy/AdvReac Type Severity Reaction Status Date / Time aspirin Allergy Severe gi bleed Verified 06/20/25 22:23 codeine Allergy Severe Migraine Verified 06/20/25 22:23 cucumber Allergy Severe angioedema Verified 06/20/25 22:23 NSAIDS (Non-Steroidal Allergy Severe gi bleed Verified 06/20/25 22:23 Anti-Inflamma lactase Allergy Intermediate gi upset Verified 06/20/25 22:23 sulfamethoxazole (From Allergy Intermediate Hives Verified 06/20/25 22:23 Bactrim) sumatriptan Allergy Intermediate worsening Verified 06/20/25 22:23 headache trimethoprim (From Bactrim) Allergy Intermediate Hives Verified 06/20/25 22:23 levofloxacin Allergy Mild Rash Verified 06/20/25 22:23 alcohol Allergy Unknown Verified 11/06/25 10:49 bupropion Allergy Unknown Verified 11/06/25 10:49 Estrogens Allergy Unknown Verified 11/06/25 10:49 hydrocodone Allergy Unknown Verified 11/06/25 10:49 mirtazapine Allergy Unknown Verified 11/06/25 10:49 quetiapine (From Seroquel) Allergy Unknown Verified 11/06/25 10:49 Exam Const: Vital Signs, click to edit/add: Vital Signs - 24 hr 11/06/25 10:17 11/06/25 10:19 11/06/25 10:19 Temperature 97.7 F Pulse Rate 70 70 Pulse Rate [Pulse Oximeter] 69 Respiratory Rate 20 Blood Pressure 106/67 Blood Pressure [Le ft Upper Arm] 106/67 Pulse Oximetry 74 L 78 L 90 Oxygen Delivery Me thod Room Air Room Air OxyMask Oxygen Flow Rate 11/06/25 10:20 11/06/25 10:20 11/06/25 10:32 Temperature Pulse Rate Pulse Rate [Pulse Oximeter] Respiratory Rate Blood Pressure 116/71 Blood Pressure [Le ft Upper Arm] Pulse Oximetry 92 92 88 Oxygen Delivery Me thod OxyMask OxyMask Oxygen Flow Rate 11/06/25 10:32 11/06/25 10:35 11/06/25 10:45 Temperature Pulse Rate 89 Pulse Rate [Pulse Oximeter] Respiratory Rate 20 Blood Pressure 116/71 Blood Pressure [Le ft Upper Arm] Pulse Oximetry 90 Oxygen Delivery Me thod OxyMask OxyMask OxyMask Oxygen Flow Rate 5 11/06/25 11:00 11/06/25 11:01 11/06/25 11:30 Temperature Pulse Rate 69 66 71 Pulse Rate [Pulse Oximeter] Respiratory Rate 20 Blood Pressure 104/67 Blood Pressure [Le ft Upper Arm] Pulse Oximetry 96 94 95 Oxygen Delivery Me thod OxyMask OxyMask OxyMask Oxygen Flow Rate 11/06/25 11:32 11/06/25 12:00 11/06/25 12:01 Temperature Pulse Rate 66 65 67 Pulse Rate [Pulse Oximeter] Respiratory Rate 18 16 Blood Pressure 103/65 116/66 Blood Pressure [Le ft Upper Arm] Pulse Oximetry 92 91 91 Oxygen Delivery Me thod OxyMask OxyMask OxyMask Oxygen Flow Rate 11/06/25 12:30 11/06/25 12:32 11/06/25 13:00 Temperature 97.6 F Pulse Rate 65 68 Pulse Rate [Pulse Oximeter] Respiratory Rate 18 18 Blood Pressure 119/64 Blood Pressure [Le ft Upper Arm] Pulse Oximetry 94 94 Oxygen Delivery Me thod OxyMask OxyMask Oxygen Flow Rate 11/06/25 13:01 11/06/25 13:23 11/06/25 13:23 Temperature Pulse Rate Pulse Rate [Pulse Oximeter] Respiratory Rate 16 Blood Pressure 117/69 Blood Pressure [Le ft Upper Arm] Pulse Oximetry 91 91 Oxygen Delivery Me thod OxyMask Oxygen Flow Rate 4 Hospitalist - H&P: Result Labs Labs: Short CBC 11/06/25 Range/Units 11:55 WBC 9.04 (4.50-11.00) K/uL Hgb 10.9 L (12.0-16.0) gm/dL Hct 36.8 (33.0-51.0) % Plt Count 266 (140-440) K/uL BMP 11/06/25 11:55 Sodium 140 Potassium 4.4 Chloride 95 L Carbon Dioxide 40 H BUN 14 Creatinine 0.9 Glucose 131 H Calcium 8.9 Liver Function 11/06/25 Range/Units 11:55 Total Bilirubin 0.7 (0.1-1.5) mg/dL AST 24 (12-35) U/L ALT 14 (4-35) U/L Alkaline Phosphatase 73 (40-150) U/L Albumin 3.9 (3.3-5.0) g/dL
[2025-11-06 14:14] LABS: Lactate Sepsis 2 Hour 1.4 mmol/L (0.5-1.9)
[2025-11-06] MEDS: ACETAMINOPHEN 325 MG TABLET 975 MG PO (14:34)
[2025-11-06] MEDS: PANTOPRAZOLE SODIUM 40 MG INJ IVP (14:42)
[2025-11-06] MEDS: SODIUM CHLORIDE 0.9 % (FLUSH) 10 ML SYRINGE 5 ML IVF ×3 (14:43→20:31)
--- NOTE | 2025-11-06 16:35 | RESP.RT ---
PEP with Aerobika, patient gave good exhalation with good chest shake, promoted, good forceful productive cough, swallowed secretions.
[2025-11-06] MEDS: HYDROCORTISONE SOD SUCCINATE 50 MG/ML inj IVP ×2 (18:23→23:28)
--- NOTE | 2025-11-06 19:21 | PC.NURSE ---
End of shift [id number] - Pt arrived from ED at approximately 1340. Pt drowsy, able to follow directions and verbalize needs. Up to bedside commode with x2 and stand/pivot with gait belt. Pt reported this was not her baseline and she felt too weak to stand. Denied pain, tolerating O2 via nasal cannula at 3L while awake and 3.5L while asleep. Incontinent of bladder during shift. Family at bedside. Pt noted to be drowsy during shift and observed to sleep. Pt appears to be resting in bed at end of shift with call light within reach.
[2025-11-06] MEDS: DIVALPROEX SODIUM ER TAB 250 MG 2000 MG PO (20:31)
[2025-11-06] MEDS: ROSUVASTATIN CALCIUM 10 MG TABLET 20 MG PO (20:31)
[2025-11-06] MEDS: OMEPRAZOLE 20 MG CAPSULE DR 40 MG PO (20:31)
[2025-11-06] MEDS: APIXABAN 5 MG TABLET PO (20:31)
[2025-11-06 21:22] LABS: HCO3 VBG 36 mmol/L (21-28); PCO2 VBG 48 mmHG (40-50); PO2 VBG 56.6 mmHG (25-47); pH VBG 7.485 (7.32-7.43)
[2025-11-06 23:14] LABS: S pneumo Ag Urine S. pneumo Negative (Negative)
[2025-11-06] MEDS: guaiFENesin 100 MG/ML CUP PO (23:27)
[2025-11-07] VITALS (21 sets, daily range): BP systolic 82–113; BP diastolic 54–80; PULSE 62–133; RESP 16–28; TEMP 36.2–36.8; O2SAT 86–94
[2025-11-07] MEDS: METOPROLOL TARTRATE 25 MG TABLET 12.5 MG PO (03:20)
--- NOTE | 2025-11-07 05:27 | PC.NURSE ---
Pt did not sleep much this night. She states she usually sleeps during the day and stays up at night. Pleasant and cooperative and answering questions appropriately. Pt remained on 3.5L NC to maintain sats at 90%/ Pt was NSR with HR at 60bpm until around 0300. At that time she switched over to Afib. Camilo called, RN instructed to give 12.5mg Dose of Metoprolol which was passed on at HS due to low HR and low BP. Pt much less lethargic than she was last evening.
[2025-11-07] MEDS: HYDROCORTISONE SOD SUCCINATE 50 MG/ML inj IVP ×3 (05:35→18:56)
[2025-11-07 06:40] LABS: HCO3 VBG 38 mmol/L (21-28); Hematocrit* 35.4 % (33.0-51.0); Hemoglobin* 10.6 gm/dL (12.0-16.0); Immature Granulocytes Abs Auto 0.02 K/uL (0.00-0.30); Immature Granulocytes Pct Auto 0.3 %; Mean Corpuscular HGB Conc 30 gm/dL (32-36); Mean Corpuscular Hemoglobin 26 pg (26-34); Mean Corpuscular Volume 87 fL (80-100); PCO2 VBG 49 mmHG (40-50); PO2 VBG 33.5 mmHG (25-47); RDW Coefficient of Variation % 16.9 % (11.5-15.5); Red Blood Count* 4.09 m/uL (4.00-5.20); White Blood Count* 6.80 K/uL (4.50-11.00); pH VBG 7.496 (7.32-7.43)
[2025-11-07 06:48] LABS: Lymphocytes Absolute Auto 1.10 K/uL (0.90-2.90); Slide Review Reflex No
[2025-11-07 06:58] LABS: Albumin* 3.5 g/dL (3.3-5.0); Chloride* 94 mmol/L (96-114); Sodium* 135 mmol/L (135-149)
[2025-11-07 06:59] LABS: Potassium* 3.6 mmol/L (3.6-5.1)
[2025-11-07 07:01] LABS: Alanine Aminotransferase* 15 U/L (4-35); Anion Gap 5 mEq/L (7-15); Aspartate Amino Transferase* 26 U/L (12-35); Blood Urea Nitrogen* 15 mg/dL (7-30); Carbon Dioxide* 36 mmol/L (20-32); Creatinine* 0.9 mg/dL (0.5-1.5); Est. Creatinine Clearance* 44.54; Estimated Glomerular Filt Rate 70 ml/min; Total Protein* 6.7 g/dL (6.0-8.3)
[2025-11-07 07:02] LABS: Alkaline Phosphatase* 61 U/L (40-150); Bilirubin Total* 0.5 mg/dL (0.1-1.5); Calcium* 8.6 mg/dL (8.4-10.6); Glucose* 145 mg/dL (60-115)
--- NOTE | 2025-11-07 07:24 | PM.IMPN1 ---
Assessment and Plan Assessment and plan (1) Acute hypoxemic respiratory failure: Problem comment: -requiring nasal cannula oxygen to keep sats greater than 88%. Known mild CO2 retainer. Oxygen supplementation with caution. -d/t CAP, long standing COPD, untreated ANTHONY -appreciate RT evaluation Status: Acute (2) Community acquired pneumonia: Problem comment: -single-view x-ray suggests a left lower lobe pneumonia. bibasilar opacities noted on CT, spiculated nodules <1cm that are new? f/u close as outpatient. -increase Rocephin to 2 g Q 24, changed azithromycin to doxycycline -already on baseline steroids for adrenal insufficiency, giving stress does hydrocortisone over the next 24 hours. -nebs, RT consult Status: Acute (3) Chronic adrenal insufficiency: Problem comment: - on Hydrocortisone 10mg Qam and 5mg Qpm - ER gave 100 mg hydrocortisone IV push x1, continuing 50 mg of hydrocortisone q.6 be on 24 hours as she is still hypoxic - when we restart her home dose of hydrocortisone, we may likely have this doubled for 24 hours Status: Acute (4) Elevated troponin: Problem comment: -assoc with ST depression, likely from demand ischemia related to the pneumonia. Trop is back to normal/22. Given the lowish blood pressure and pulse I have held the metoprolol going forward. Status: Acute (5) COPD on long-term inhaled steroid therapy: Problem comment: -continue home Trelegy, p.r.n. yvonne manning, p.r.n. 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 Status: Acute (7) Epilepsy: Problem comment: Continue home Depakote Status: Acute (8) Obstructive sleep apnea: Problem comment: -no current sleep study to review, last was 2014. Patient is not on CPAP. Status: Acute (9) (HFpEF) heart failure with preserved ejection fraction: Problem comment: -chronic, not in exacerbation -echo reviewed from June of 2025. EF 60-65%. Normal LV and RV function. Mild . Moderate TR. -just had a nucleolar stress test on 10/26/25. No reversible ischemia noted Status: Acute (10) Diabetes: Problem comment: - on Metformin and Jardiance as an outpatient, most recent A1C 6.7 in August of 2025 Status: Acute (11) Chronic a-fib: Problem comment: - Flipped into AFib overnight on 11/07. Continue to monitor. Heart rates are around 100. if sustained >120 we can look at adding metoprolol or dilt (normal EF) for rate control. 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 The nuclear stress test is negative for inducible myocardial ischemia or infarction. ? Left ventricular function is normal. ? The left ventricular ejection fraction at stress is 69%. ? In comparison, nuclear stress October 2024 was normal. Status: Acute (12) MRSA (methicillin resistant staph aureus) culture positive: Problem comment: 06/21/25 TATIANA Status: Acute Subjective Date Seen: 11/07/25 Interval history: Daily Progress Note - Hospital Medicine Day #: 2, admitted yesterday afternoon CC: Acute hypoxic respiratory failure in the setting of CAP/multiple comorbidities 24 HOUR UPDATE: RN note: Pt did not sleep much this night. She states she usually sleeps during the day and stays up at night. Pleasant and cooperative and answering questions appropriately. Pt remained on 3.5L NC to maintain sats at 90%/ Pt was NSR with HR at 60bpm until around 0300. At that time she switched over to Afib. Camilo called, RN instructed to give 12.5mg Dose of Metoprolol which was passed on at HS due to low HR and low BP. Pt much less lethargic than she was last evening. Notable Labs, Micro, Rads, Interventions: Blood pressures have been soft. 96/59, 112/75, 103/59. She was started on metoprolol for type 2 non STEMI verses mild demand ischemia. Pulse rate had been in the 60s and then flipped into AFib with heart rates 97-114. Afebrile Respiratory rate 16 Pulse ox about 90% with 3-4 L per nasal cannula O2, respiratory effort is shallow Appreciate respiratory therapy evaluating patient. PEP with Aerobika, patient gave good exhalation with good chest shake, promoted, good forceful productive cough, swallowed secretions CBC is stable and unremarkable. No elevated white blood cell count. PH 7.5, pCO2 49, bicarb 30 Troponin peaked at 0.06 and is now normal at 0.02. Chemistries are still reassuring. Her lactate is normal. CRP trending up 8.9-11.9. -negative Legionella and strep pneumo Blood cultures are still negative. Known positive MRSA CTA: no PE. no infarct. Bibasilar airspace opacities and new nodules. Objective: alert; quiet. no resp distress. Vitals: see above Lungs: fine crackles; shallow breathing. hypoxic off oxygen into the low 80's. Cardiac: S1S2. Disposition/Potential discharge - 1-2 days d/t oxygen requirement. Today I spent 50 minutes seeing the patient, reviewing Expanse and EPIC notes/diagnostics, discussing the care plan with our care time that includes social work, PT/OT, pharmacy, RT, residential and documenting my impressions and plan in the medical record. Exam Const: Vital Signs, click to edit/add: Vital Signs - 24 hr 11/06/25 10:17 11/06/25 10:19 11/06/25 10:19 Temperature 97.7 F Pulse Rate 70 70 Pulse Rate [Pulse Oximeter] 69 Respiratory Rate 20 Blood Pressure 106/67 Blood Pressure [Le ft Upper Arm] 106/67 Blood Pressure [Ri ght Arm] Pulse Oximetry 74 L 78 L 90 Oxygen Delivery Me thod Room Air Room Air OxyMask Oxygen Flow Rate 11/06/25 10:20 11/06/25 10:20 11/06/25 10:32 Temperature Pulse Rate Pulse Rate [Pulse Oximeter] Respiratory Rate Blood Pressure 116/71 Blood Pressure [Le ft Upper Arm] Blood Pressure [Ri ght Arm] Pulse Oximetry 92 92 88 Oxygen Delivery Me thod OxyMask OxyMask Oxygen Flow Rate 11/06/25 10:32 11/06/25 10:35 11/06/25 10:45 Temperature Pulse Rate 89 Pulse Rate [Pulse Oximeter] Respiratory Rate 20 Blood Pressure 116/71 Blood Pressure [Le ft Upper Arm] Blood Pressure [Ri ght Arm] Pulse Oximetry 90 Oxygen Delivery Me thod OxyMask OxyMask OxyMask Oxygen Flow Rate 5 11/06/25 11:00 11/06/25 11:01 11/06/25 11:30 Temperature Pulse Rate 69 66 71 Pulse Rate [Pulse Oximeter] Respiratory Rate 20 Blood Pressure 104/67 Blood Pressure [Le ft Upper Arm] Blood Pressure [Ri ght Arm] Pulse Oximetry 96 94 95 Oxygen Delivery Me thod OxyMask OxyMask OxyMask Oxygen Flow Rate 11/06/25 11:32 11/06/25 12:00 11/06/25 12:01 Temperature Pulse Rate 66 65 67 Pulse Rate [Pulse Oximeter] Respiratory Rate 18 16 Blood Pressure 103/65 116/66 Blood Pressure [Le ft Upper Arm] Blood Pressure [Ri ght Arm] Pulse Oximetry 92 91 91 Oxygen Delivery Me thod OxyMask OxyMask OxyMask Oxygen Flow Rate 11/06/25 12:30 11/06/25 12:32 11/06/25 13:00 Temperature 97.6 F Pulse Rate 65 68 Pulse Rate [Pulse Oximeter] Respiratory Rate 18 18 Blood Pressure 119/64 Blood Pressure [Le ft Upper Arm] Blood Pressure [Ri ght Arm] Pulse Oximetry 94 94 Oxygen Delivery Me thod OxyMask OxyMask Oxygen Flow Rate 11/06/25 13:01 11/06/25 13:23 11/06/25 13:23 Temperature Pulse Rate Pulse Rate [Pulse Oximeter] Respiratory Rate 16 Blood Pressure 117/69 Blood Pressure [Le ft Upper Arm] Blood Pressure [Ri ght Arm] Pulse Oximetry 91 91 Oxygen Delivery Me thod OxyMask Oxygen Flow Rate 4 11/06/25 13:40 11/06/25 13:40 11/06/25 13:46 Temperature 97.9 F Pulse Rate Pulse Rate [Pulse Oximeter] 67 Respiratory Rate 20 20 Blood Pressure Blood Pressure [Le ft Upper Arm] Blood Pressure [Ri ght Arm] 101/53 L Pulse Oximetry 91 91 91 Oxygen Delivery Me thod OxyMask OxyMask Oxygen Flow Rate 3 3 11/06/25 13:46 11/06/25 13:46 11/06/25 14:06 Temperature 97.9 F Pulse Rate 64 Pulse Rate [Pulse Oximeter] 67 Respiratory Rate 20 20 Blood Pressure Blood Pressure [Le ft Upper Arm] Blood Pressure [Ri ght Arm] 101/53 L Pulse Oximetry 91 91 Oxygen Delivery Me thod OxyMask OxyMask Oxygen Flow Rate 3 3 11/06/25 15:40 11/06/25 15:40 11/06/25 17:40 Temperature 98.0 F 97.6 F Pulse Rate 60 Pulse Rate [Pulse Oximeter] 66 60 Respiratory Rate 20 20 Blood Pressure Blood Pressure [Le ft Upper Arm] Blood Pressure [Ri ght Arm] 108/63 104/61 Pulse Oximetry 90 91 Oxygen Delivery Me thod Nasal Cannula Nasal Cannula Oxygen Flow Rate 3 3.5 11/06/25 19:00 11/06/25 19:24 11/06/25 20:37 Temperature 97.2 F L 97.5 F L Pulse Rate 61 Pulse Rate [Pulse Oximeter] 58 L 63 Respiratory Rate 16 16 Blood Pressure Blood Pressure [Le ft Upper Arm] Blood Pressure [Ri ght Arm] 96/61 100/64 Pulse Oximetry 91 89 Oxygen Delivery Me thod Nasal Cannula Nasal Cannula Oxygen Flow Rate 3.5 3.5 11/06/25 21:00 11/06/25 22:19 11/06/25 23:15 Temperature 97.6 F Pulse Rate 65 Pulse Rate [Pulse Oximeter] 63 65 Respiratory Rate 16 16 Blood Pressure Blood Pressure [Le ft Upper Arm] Blood Pressure [Ri ght Arm] 103/59 L Pulse Oximetry 92 Oxygen Delivery Me thod Nasal Cannula Oxygen Flow Rate 3.5 11/07/25 01:04 11/07/25 01:05 11/07/25 02:03 Temperature 97.2 F L 97.7 F Pulse Rate Pulse Rate [Pulse Oximeter] 62 62 104 H Respiratory Rate 16 16 16 Blood Pressure Blood Pressure [Le ft Upper Arm] Blood Pressure [Ri ght Arm] 110/69 102/75 Pulse Oximetry 90 91 Oxygen Delivery Me thod Nasal Cannula Nasal Cannula Oxygen Flow Rate 3.5 3.5 11/07/25 03:07 11/07/25 04:11 11/07/25 05:20 Temperature 97.5 F L Pulse Rate 114 H Pulse Rate [Pulse Oximeter] 97 97 Respiratory Rate 16 16 Blood Pressure Blood Pressure [Le ft Upper Arm] Blood Pressure [Ri ght Arm] 112/75 Pulse Oximetry 90 Oxygen Delivery Me thod Nasal Cannula Oxygen Flow Rate 3.5 11/07/25 05:36 Temperature 97.5 F L Pulse Rate Pulse Rate [Pulse Oximeter] 101 H Respiratory Rate 16 Blood Pressure Blood Pressure [Le ft Upper Arm] Blood Pressure [Ri ght Arm] 96/59 L Pulse Oximetry 90 Oxygen Delivery Me thod Nasal Cannula Oxygen Flow Rate 3.5 Labs Labs: Laboratory Results - last 24 hr 11/06/25 11/06/25 11/06/25 10:18 11:55 11:58 WBC 9.04 RBC 4.21 Hgb 10.9 L Hct 36.8 MCV 87 MCH 26 MCHC 30 L RDW Coeff of Nicci 17.0 H Plt Count 266 Neut % (Auto) 75.5 H Lymph % (Auto) 10.8 L Gates % (Auto) 12.1 H Eos % (Auto) 0.4 Baso % (Auto) 0.6 Neut # (Auto) 6.80 Lymph # (Auto) 1.00 Gates # (Auto) 1.10 H Eos # (Auto) 0.04 Baso # (Auto) 0.05 Abs Immat Gran (auto) 0.05 Imm/Tot Granulo (auto) 0.6 VBG pH 7.457 H VBG pCO2 57 H VBG pO2 < 30.1 VBG HCO3 40 H Sodium 140 Potassium 4.4 Chloride 95 L Carbon Dioxide 40 H Anion Gap 5 L BUN 14 Creatinine 0.9 Estimated Creat Clear 44.54 Estimated GFR 70 Glucose 131 H Lactate 2.5 H Calcium 8.9 Phosphorus 3.9 Magnesium 2.1 Total Bilirubin 0.7 AST 24 ALT 14 Alkaline Phosphatase 73 Troponin I POC Troponin I High Sensi 21.9 H* C-Reactive Protein 8.9 H NT-Pro-B Natriuret Pep 2950 H Total Protein 7.4 Albumin 3.9 Procalcitonin 0.05 TSH 2.640 Urine L. pneumophilia Ag Urine Strep pneumoniae Ag SARS-CoV-2 (PCR) Negative SARS-CoV-2 Influenza Type A (PCR) Negative PCR FLU A Influenza Type B (PCR) Negative PCR FLU B RSV (PCR) Negative PCR RSV Lab Acknowledgement 11/06/25 11/06/25 11/06/25 13:00 14:07 16:19 WBC RBC Hgb Hct MCV MCH MCHC RDW Coeff of Nicci Plt Count Neut % (Auto) Lymph % (Auto) Gates % (Auto) Eos % (Auto) Baso % (Auto) Neut # (Auto) Lymph # (Auto) Gates # (Auto) Eos # (Auto) Baso # (Auto) Abs Immat Gran (auto) Imm/Tot Granulo (auto) VBG pH VBG pCO2 VBG pO2 VBG HCO3 Sodium Potassium Chloride Carbon Dioxide Anion Gap BUN Creatinine Estimated Creat Clear Estimated GFR Glucose Lactate 1.4 Calcium Phosphorus Magnesium Total Bilirubin AST ALT Alkaline Phosphatase Troponin I 0.05 H 0.06 H* POC Troponin I High Sensi C-Reactive Protein NT-Pro-B Natriuret Pep Total Protein Albumin Procalcitonin TSH Urine L. pneumophilia Ag Urine Strep pneumoniae Ag SARS-CoV-2 (PCR) Influenza Type A (PCR) Influenza Type B (PCR) RSV (PCR) Lab Acknowledgement 11/06/25 11/06/25 11/06/25 18:03 21:17 22:12 WBC RBC Hgb Hct MCV MCH MCHC RDW Coeff of Nicci Plt Count Neut % (Auto) Lymph % (Auto) Gates % (Auto) Eos % (Auto) Baso % (Auto) Neut # (Auto) Lymph # (Auto) Gates # (Auto) Eos # (Auto) Baso # (Auto) Abs Immat Gran (auto) Imm/Tot Granulo (auto) VBG pH 7.485 H VBG pCO2 48 VBG pO2 56.6 H VBG HCO3 36 H Sodium Potassium Chloride Carbon Dioxide Anion Gap BUN Creatinine Estimated Creat Clear Estimated GFR Glucose Lactate Calcium Phosphorus Magnesium Total Bilirubin AST ALT Alkaline Phosphatase Troponin I 0.05 H POC Troponin I High Sensi C-Reactive Protein NT-Pro-B Natriuret Pep Total Protein Albumin Procalcitonin TSH Urine L. pneumophilia Ag L. pneumo Negative Urine Strep pneumoniae Ag S. pneumo Negative SARS-CoV-2 (PCR) Influenza Type A (PCR) Influenza Type B (PCR) RSV (PCR) Lab Acknowledgement Test Added 11/07/25 06:20 WBC 6.80 RBC 4.09 Hgb 10.6 L Hct 35.4 MCV 87 MCH 26 MCHC 30 L RDW Coeff of Nicci 16.9 H Plt Count 265 Neut % (Auto) 74.9 H Lymph % (Auto) 16.6 L Gates % (Auto) 7.9 Eos % (Auto) 0.0 Baso % (Auto) 0.3 Neut # (Auto) 5.10 Lymph # (Auto) 1.10 Gates # (Auto) 0.50 Eos # (Auto) 0.00 Baso # (Auto) 0.02 Abs Immat Gran (auto) 0.02 Imm/Tot Granulo (auto) 0.3 VBG pH 7.496 H VBG pCO2 49 VBG pO2 33.5 VBG HCO3 38 H Sodium 135 Potassium 3.6 Chloride 94 L Carbon Dioxide 36 H Anion Gap 5 L BUN 15 Creatinine 0.9 Estimated Creat Clear 44.54 Estimated GFR 70 Glucose 145 H Lactate Calcium 8.6 Phosphorus Magnesium 2.0 Total Bilirubin 0.5 AST 26 ALT 15 Alkaline Phosphatase 61 Troponin I 0.02 POC Troponin I High Sensi C-Reactive Protein 11.9 H NT-Pro-B Natriuret Pep Total Protein 6.7 Albumin 3.5 Procalcitonin TSH Urine L. pneumophilia Ag Urine Strep pneumoniae Ag SARS-CoV-2 (PCR) Influenza Type A (PCR) Influenza Type B (PCR) RSV (PCR) Lab Acknowledgement
[2025-11-07] MEDS: POTASSIUM CHLORIDE 10 MEQ CAPSULE ER PO (08:43)
[2025-11-07] MEDS: MONTELUKAST 10 MG TABLET PO (08:43)
[2025-11-07] MEDS: AMIODARONE 200 MG TABLET PO (08:43)
[2025-11-07] MEDS: SERTRALINE 50 MG TABLET 25 MG PO (08:43)
[2025-11-07] MEDS: TORSEMIDE 20 MG TABLET 60 MG PO (08:44)
[2025-11-07] MEDS: APIXABAN 5 MG TABLET PO ×2 (08:44→21:24)
[2025-11-07] MEDS: OMEPRAZOLE 20 MG CAPSULE DR 40 MG PO ×2 (08:44→21:23)
[2025-11-07] MEDS: LEVOTHYROXINE 50 MCG TABLET PO (08:44)
[2025-11-07] MEDS: DOXYCYCLINE HYCLATE 100 MG PO ×2 (08:44→21:24)
[2025-11-07] MEDS: EMPAGLIFLOZIN 10 MG TABLET PO (08:44)
--- NOTE | 2025-11-07 11:32 | RESP.RT ---
Patient up to chair, on NC 3 Lpm SaO2 93%, decreased to NC 2 Lpm, SaO2 90%. Breathing regular/easy, good air movement, good cough, able to clear secretions when present. IS and PEP did with patient, patient did well, both promoted cough, patient swallowed secretions.
[2025-11-07] MEDS: SODIUM CHLORIDE 0.9 % (FLUSH) 10 ML SYRINGE 5 ML IVF ×2 (13:00→21:24)
[2025-11-07] MEDS: cefTRIAXone 2 GM in 0.9 % SODIUM CHLORIDE Mini-bag 100 ML IVPB (13:17)
[2025-11-07] MEDS: INSULIN ASPART 100 UNIT/ML SUBCUT (17:00)
[2025-11-07] MEDS: 0.9 % SODIUM CHLORIDE 500 ML 500 ML IV (17:43)
--- NOTE | 2025-11-07 19:20 | PC.NURSE ---
Nursing Care Hours: [id number] Pt this shift calm and cooperative, alert and oriented x3. No c/o pain. Incontinent, pt does not report need to be changed. Hypotensive with afib RVR. Monitoring BP frequently. 500ml bolus given and BP within safe limits to administer PO med for afib. Pt denies chest pain or SOB. Titrate O2 to 2L NC. IV pulled out during afternoon ABX infusion. Not found until infusion completed, uncertain of how much was administered. Oral cares done with mouthwash and green sponge swab.
--- NOTE | 2025-11-07 20:52 | W.PM.CROSSCO ---
Subjective Subjective Time Seen by Provider: 18:00 Date Seen: 11/07/25 Interval history: Nurse reported that Vicki's HR was in the 140s while she was in the chair eating. Vicki states that she feels okay and denies CP or SOB. She endorses feeling better than she did when she was admitted. Objective Objective Data Details: General: No acute distress. Awake, alert, oriented. Resting comfortably in the bed, watching TV. No pallor. No jaundice. Cardiovascular: Irregularly irregular, tachycardic. Assessment and Plan Assessment and plan (1) Atrial fibrillation with RVR: Problem comment: - HR >110 at rest, BP soft, 80-90s/60s, asymptomatic - Already on amiodarone and diltiazem, BP too low to give more diltiazem or metoprolol - Trial of very low dose digoxin (125mcg load x 1, then 62.5 mcg daily) due to amiodarone can increase serum digoxin concentrations and patient has CKD stage 3b. If no effect or worsening, consider cardiology consult or cardioversion. Status: Acute (2) Chronic a-fib: Problem comment: - Flipped into AFib overnight on 11/07. Continue to monitor. Heart rates are around 100. if sustained >120 we can look at adding metoprolol or dilt (normal EF) for rate control. 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 The nuclear stress test is negative for inducible myocardial ischemia or infarction. ? Left ventricular function is normal. ? The left ventricular ejection fraction at stress is 69%. ? In comparison, nuclear stress October 2024 was normal. Status: Acute
[2025-11-07] MEDS: DIVALPROEX SODIUM ER TAB 250 MG 2000 MG PO (21:23)
[2025-11-07] MEDS: TRAMADOL HCL 50 MG TABLET 25 MG PO (21:23)
[2025-11-07] MEDS: MELATONIN 3 MG TABLET 6 MG PO (21:24)
[2025-11-07] MEDS: ACETAMINOPHEN 325 MG TABLET 975 MG PO (21:24)
[2025-11-07] MEDS: ROSUVASTATIN CALCIUM 10 MG TABLET 20 MG PO (21:24)
[2025-11-07] MEDS: DIGOXIN 250 MCG/ML inj 125 MCG IV (21:25)
[2025-11-08] VITALS (32 sets, daily range): BP systolic 75–121; BP diastolic 48–96; PULSE 81–145; RESP 18–20; TEMP 35.9–36.6; O2SAT 86–93
[2025-11-08] MEDS: HYDROCORTISONE SOD SUCCINATE 50 MG/ML inj IVP ×4 (00:33→17:55)
[2025-11-08 06:44] LABS: HCO3 VBG 34 mmol/L (21-28); PCO2 VBG 42 mmHG (40-50); PO2 VBG 69.8 mmHG (25-47); pH VBG 7.521 (7.32-7.43)
[2025-11-08] MEDS: ACETAMINOPHEN 325 MG TABLET 975 MG PO (06:44)
[2025-11-08 06:52] LABS: Hematocrit* 36.8 % (33.0-51.0); Hemoglobin* 11.1 gm/dL (12.0-16.0); Immature Granulocytes Abs Auto 0.02 K/uL (0.00-0.30); Immature Granulocytes Pct Auto 0.4 %; Mean Corpuscular HGB Conc 30 gm/dL (32-36); Mean Corpuscular Hemoglobin 26 pg (26-34); Mean Corpuscular Volume 86 fL (80-100); RDW Coefficient of Variation % 17.2 % (11.5-15.5); Red Blood Count* 4.26 m/uL (4.00-5.20); White Blood Count* 5.47 K/uL (4.50-11.00)
[2025-11-08 06:57] LABS: Lymphocytes Absolute Auto 1.10 K/uL (0.90-2.90); Slide Review Reflex No
[2025-11-08 07:01] LABS: Albumin* 3.5 g/dL (3.3-5.0); Chloride* 99 mmol/L (96-114); Potassium* 3.0 mmol/L (3.6-5.1); Sodium* 138 mmol/L (135-149)
[2025-11-08 07:03] LABS: Blood Urea Nitrogen* 28 mg/dL (7-30); Creatinine* 1.0 mg/dL (0.5-1.5); Est. Creatinine Clearance* 44.54; Estimated Glomerular Filt Rate 61 ml/min
[2025-11-08 07:04] LABS: Alanine Aminotransferase* 14 U/L (4-35); Alkaline Phosphatase* 65 U/L (40-150); Anion Gap 5 mEq/L (7-15); Aspartate Amino Transferase* 24 U/L (12-35); Bilirubin Total* 0.4 mg/dL (0.1-1.5); Calcium* 8.5 mg/dL (8.4-10.6); Carbon Dioxide* 34 mmol/L (20-32); Glucose* 155 mg/dL (60-115); Total Protein* 6.7 g/dL (6.0-8.3)
--- NOTE | 2025-11-08 07:31 | PC.NURSE ---
The patient is cooperative with cares. HR noted to be quite tachycardic at the beggining of the night, One time dose of medication was gv
[2025-11-08] MEDS: OMEPRAZOLE 20 MG CAPSULE DR 40 MG PO ×2 (07:41→21:25)
[2025-11-08] MEDS: LEVOTHYROXINE 50 MCG TABLET PO (07:42)
[2025-11-08] MEDS: INSULIN ASPART 100 UNIT/ML SUBCUT ×4 (08:24→21:26)
[2025-11-08] MEDS: AMIODARONE 200 MG TABLET PO (08:25)
[2025-11-08] MEDS: APIXABAN 5 MG TABLET PO ×2 (08:25→21:25)
[2025-11-08] MEDS: DIGOXIN 125 MCG TABLET 62.5 MCG PO (08:26)
[2025-11-08] MEDS: DOXYCYCLINE HYCLATE 100 MG PO ×2 (08:26→21:26)
[2025-11-08] MEDS: POTASSIUM CHLORIDE 10 MEQ CAPSULE ER PO (08:27)
[2025-11-08] MEDS: MONTELUKAST 10 MG TABLET PO (08:27)
[2025-11-08] MEDS: EMPAGLIFLOZIN 10 MG TABLET PO (08:27)
[2025-11-08] MEDS: SERTRALINE 50 MG TABLET 25 MG PO (08:27)
[2025-11-08] MEDS: TORSEMIDE 20 MG TABLET 60 MG PO (08:27)
[2025-11-08] MEDS: SODIUM CHLORIDE 0.9 % (FLUSH) 10 ML SYRINGE 5 ML IVF ×2 (08:28→21:26)
--- NOTE | 2025-11-08 08:30 | PC.SOCIAL ---
Social work: Received call from [facility] Pringle care coordination (phone [phone]) stating pt has a [facility] summer child caregiver, Poonam Wagner ([phone]) who can be contacted regarding discharge needs. They will send a list of contracted SNF's is requested. community worker to follow up as needed.
[2025-11-08] MEDS: TRAMADOL HCL 50 MG TABLET 25 MG PO ×2 (09:08→20:19)
--- NOTE | 2025-11-08 10:06 | PC.SOCIAL ---
Addendum entered by FRANKO Genao 11/08/25 14:23: Discharge planning: Pt's PT notes state that she should plan to be a one assist with all mobility at discharge back to [facility] to avoid being a fall risk. These notes were faxed to [facility] earlier today. Pt is wheelchair bound, but historically has used pivot transfers on her own to move from wheelchair to chair, bed, etc. The main number to [facility] is #[phone]. RIKI Martinez at [facility] states they would prefer the pt to return to [facility] as soon as possible on 11/11. In the past, the pt's sister, Ana Paula, has given her a ride back to [facility]. Social work to follow-up as needed. Original Note: Discharge planning: airplane woodworker spoke to RIKI Mooney ([place]elle) at [facility]. airplane woodworker explained to Michelle that the provider is stating that the pt will most likely be able to return to [facility] on the or . Michelle stated that they could not accommodate a return on the due to the holiday/staffing and the would be the best date for her to return. When pt is ready to return the nursing office phone number at [facility] is #[phone]. airplane woodworker faxed over updated notes to Michelle at [facility] this morning at fax number #[phone]. Social work to follow-up as needed.
[2025-11-08] MEDS: cefTRIAXone 2 GM in 0.9 % SODIUM CHLORIDE Mini-bag 100 ML IVPB (11:17)
--- NOTE | 2025-11-08 13:24 | P.IMPN_ITS ---
Assessment and Plan Assessment and plan (1) Atrial fibrillation with RVR: Problem comment: - HR >120 -fluid bolus and dig yesterday has given the lasting control and certainly not converted. -Spoke with Dr. Cardenas from her cardiology group ([facility]) and opened case for transfer to [facility] with operations Center at 1400hrs. -plan is to bolus amiodarone, 150 mg over 10 minutes if no response with heart rate and or converting her back to sinus, digoxin 250 mg IV x1. He felt a transfer if these 2 interventions do not work was very reasonable. Status: Acute (2) Chronic a-fib: Problem comment: - Flipped into AFib overnight on 11/07. Continue to monitor. Heart rates are around 100. 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 The nuclear stress test is negative for inducible myocardial ischemia or infarction. ? Left ventricular function is normal. ? The left ventricular ejection fraction at stress is 69%. ? In comparison, nuclear stress October 2024 was normal. Status: Acute (3) Acute hypoxemic respiratory failure: Problem comment: -requiring nasal cannula oxygen to keep sats greater than 88%. Known mild CO2 retainer. Oxygen supplementation with caution. -d/t CAP, long standing COPD, untreated ANTHONY -appreciate RT evaluation Status: Acute (4) Acute hypokalemia: Problem comment: will replace, given need for rhythm stability (along with magnesium). Status: Acute (5) Community acquired pneumonia: Problem comment: -single-view x-ray suggests a left lower lobe pneumonia. bibasilar opacities noted on CT, spiculated nodules <1cm that are new? f/u close as outpatient. -increase Rocephin to 2 g Q 24, changed azithromycin to doxycycline -already on baseline steroids for adrenal insufficiency, giving stress does hydrocortisone over the next 24 hours. -nebs, RT consult Status: Acute (6) Chronic adrenal insufficiency: Problem comment: - on Hydrocortisone 10mg Qam and 5mg Qpm - ER gave 100 mg hydrocortisone IV push x1, continuing 50 mg of hydrocortisone q.6 while acutely ill. - when we restart her home dose of hydrocortisone, we may likely have this doubled for 24 hours Status: Acute (7) COPD on long-term inhaled steroid therapy: Problem comment: -continue home angelo Cardenas p.rvenancio beta agonist, RT consult -November 2024 pulmonary function testing showed FVC 50% of predicted at 1.3 L and FEV1 55% of predicted at 1.14 L -gabriel saw her physical director on 11/02 Status: Acute (8) (HFpEF) heart failure with preserved ejection fraction: Problem comment: -chronic, not in exacerbation -echo reviewed from June of 2025. EF 60-65%. Normal LV and RV function. Mild . Moderate TR. -just had a nucleolar stress test on 10/26/25. No reversible ischemia noted Status: Acute (9) Venous stasis dermatitis of both lower extremities: Problem comment: - no evidence of acute infection. Toes also exhibit erythema and edema that is baseline for her - lymphedema OT evaluated this morning; following. Status: Acute Subjective Date Seen: 11/08/25 Interval history: Daily Progress Note - Hospital Medicine Day #: 3, admitted 11/06 CC: Acute hypoxic respiratory failure in the setting of CAP/multiple comorbidities 24 HOUR UPDATE: slowly improving from a resp status; less hypoxic. still feels depleted. HR has been difficult to control. initially responded to fluid bolus and adding digoxin; but as today progresses - less control on the tachycardia. Notable Labs, Micro, Rads, Interventions: Blood pressures have been soft. 96/59, 112/75, 103/59. She was started on metoprolol for type 2 non STEMI verses mild demand ischemia. Pulse rate had been in the 60s and then flipped into AFib with heart rates 97- 114. Afebrile Respiratory rate 16 Pulse ox about 90% with 3-4 L per nasal cannula O2, respiratory effort is shallow Appreciate respiratory therapy evaluating patient. PEP with Aerobika, patient gave good exhalation with good chest shake, promoted, good forceful productive cough, swallowed secretions CBC is stable and unremarkable. No elevated white blood cell count. PH 7.5, pCO2 49, bicarb 30 Troponin peaked at 0.06 and is now normal at 0.02. Chemistries are still reassuring. Her lactate is normal. CRP trending up 8.9-11.9. -negative Legionella and strep pneumo Blood cultures are still negative. Known positive MRSA CTA: no PE. no infarct. Bibasilar airspace opacities and new nodules. Objective: alert; quiet. no resp distress. Vitals: see above Lungs: fine crackles; shallow breathing. less hypoxic than yesterday Cardiac: S1S2. tachy; irreg irreg lower ext: chronic appearing erythema; lymphedema; distal phalanges are firm, swollen. good distal pulses. Disposition/Potential discharge - 1-2 days d/t oxygen requirement vs transfer for RVR management. Today I spent 50 minutes seeing the patient, reviewing Expanse and EPIC notes/diagnostics, discussing the care plan with our care time that includes social work, PT/OT, pharmacy, RT, chcf and documenting my impressions and plan in the medical record. Exam Const: Vital Signs, click to edit/add: Vital Signs - 24 hr 11/07/25 14:00 11/07/25 15:00 11/07/25 15:00 Temperature 98.1 F Pulse Rate 107 H Pulse Rate [Pulse Oximeter] 116 H 111 H Respiratory Rate 20 Blood Pressure [Le ft Arm] Blood Pressure [Ri ght Arm] 94/70 98/66 Pulse Oximetry 87 L Oxygen Delivery Me thod Nasal Cannula Oxygen Flow Rate 2 11/07/25 16:57 11/07/25 19:30 11/07/25 20:00 Temperature Pulse Rate Pulse Rate [Pulse Oximeter] 133 H 125 H Respiratory Rate 20 20 Blood Pressure [Le ft Arm] Blood Pressure [Ri ght Arm] 82/60 L 90/73 96/65 Pulse Oximetry 90 Oxygen Delivery Me thod Nasal Cannula Oxygen Flow Rate 2 11/07/25 21:20 11/07/25 22:49 11/07/25 23:00 Temperature 98.0 F 98.2 F Pulse Rate Pulse Rate [Pulse Oximeter] 120 H 114 H Respiratory Rate 20 18 20 Blood Pressure [Le ft Arm] Blood Pressure [Ri ght Arm] 98/77 113/80 Pulse Oximetry 89 89 Oxygen Delivery Me thod Nasal Cannula Nasal Cannula Oxygen Flow Rate 2 1 11/07/25 23:00 11/08/25 00:36 11/08/25 03:00 Temperature 97.8 F Pulse Rate 87 Pulse Rate [Pulse Oximeter] 105 H 83 Respiratory Rate 18 Blood Pressure [Le ft Arm] Blood Pressure [Ri ght Arm] 112/90 H 100/76 Pulse Oximetry 88 Oxygen Delivery Me thod Nasal Cannula Oxygen Flow Rate 1 11/08/25 06:49 11/08/25 07:00 11/08/25 08:00 Temperature Pulse Rate 91 Pulse Rate [Pulse Oximeter] 88 114 H Respiratory Rate 18 Blood Pressure [Le ft Arm] Blood Pressure [Ri ght Arm] 104/73 Pulse Oximetry Oxygen Delivery Me thod Oxygen Flow Rate 11/08/25 08:20 11/08/25 08:26 11/08/25 11:00 Temperature 97.4 F L Pulse Rate 103 H Pulse Rate [Pulse Oximeter] 114 H Respiratory Rate 18 Blood Pressure [Le ft Arm] 107/96 H Blood Pressure [Ri ght Arm] Pulse Oximetry 90 93 Oxygen Delivery Me thod Room Air Oxygen Flow Rate 11/08/25 11:00 11/08/25 13:08 Temperature Pulse Rate Pulse Rate [Pulse Oximeter] 138 H 120 H Respiratory Rate 20 20 Blood Pressure [Le ft Arm] 118/86 108/77 Blood Pressure [Ri ght Arm] Pulse Oximetry 93 89 Oxygen Delivery Me thod Nasal Cannula Nasal Cannula Oxygen Flow Rate 1 1 Labs Labs: Laboratory Results - last 24 hr 11/08/25 06:10 WBC 5.47 RBC 4.26 Hgb 11.1 L Hct 36.8 MCV 86 MCH 26 MCHC 30 L RDW Coeff of Nicci 17.2 H Plt Count 258 Neut % (Auto) 74.0 H Lymph % (Auto) 19.4 L Rapides % (Auto) 6.0 Eos % (Auto) 0.0 Baso % (Auto) 0.2 Neut # (Auto) 4.00 Lymph # (Auto) 1.10 Rapides # (Auto) 0.30 Eos # (Auto) 0.00 Baso # (Auto) 0.01 Abs Immat Gran (auto) 0.02 Imm/Tot Granulo (auto) 0.4 VBG pH 7.521 H VBG pCO2 42 VBG pO2 69.8 H VBG HCO3 34 H Sodium 138 Potassium 3.0 L Chloride 99 Carbon Dioxide 34 H Anion Gap 5 L BUN 28 Creatinine 1.0 Estimated Creat Clear 44.54 Estimated GFR 61 Glucose 155 H Calcium 8.5 Magnesium 2.0 Total Bilirubin 0.4 AST 24 ALT 14 Alkaline Phosphatase 65 C-Reactive Protein 5.1 H Total Protein 6.7 Albumin 3.5
--- NOTE | 2025-11-08 13:31 | CRLHL7_ITS ---
For Patients: As a result of the Cures Act, medical imaging exams and procedure reports are released immediately into your electronic medical record. You may view this report before your referring provider. If you have questions, please contact your health care provider. INDICATION: AFib/hypoxia. TECHNIQUE: Chest 1 view. COMPARISON: 11/06/2025. FINDINGS: Cardiovascular and mediastinum: Heart size and vasculature are normal in caliber and appearance. Lungs and pleural spaces: Unchanged mild elevation of the right hemidiaphragm. No focal consolidation. No pleural effusion or pneumothorax. Bones and soft tissues: Similar appearing degenerative changes of the spine and bilateral shoulders. Large calcified intra-articular body within the left glenohumeral joint measuring 1.6 cm. Partially imaged thoracolumbar fusion hardware. IMPRESSION: No evidence of an acute pulmonary process. Dictated by Smooth Dowd MD @ 11/08/2025 2:08:17 PM (Electronically Signed)
--- NOTE | 2025-11-08 13:42 | RESP.RT ---
Patient sitting up in chair, PEP, good exhalation, good chest shake, promoted, good dry NPC, LL still diminished, with slight expiratory wheeze noted, clearing with cough.
[2025-11-08] MEDS: 0.9 % SODIUM CHLORIDE 500 ML 500 ML IV (13:44)
--- NOTE | 2025-11-08 14:19 | PC.NURSE ---
Addendum entered by Marta Burciaga RN 11/08/25 19:20: Continued care [id number] Pt had acid reflux episode during dinner causing coughing. HR elevated during episode, spo2 and BP unchanged. Amiodarone loading dose via IV completed. BP monitored. Pt did become hypotensive with symptoms of dizziness. Assisted back to bed and continue to monitor BP and improved in bed. HR decreased to below 100, elevating above 100 with activity still. Continue 1L NC. Purewick in place. Original Note: Nursing Care Hours: [id number] Pt this shift calm and cooperative, alert and oriented. Pain reported to thierno SEAMAN, treated with PRN PO options. Legs elevated while in bed and chair. Slight redness to shins and toes per usual for pt. Slight edema. Left EdemaWear off per therapist. BP stable. Afib with RVR this shift treated with scheduled PO options, not effective. Bolus currently infusing. Pt denies chest pain or SOB. Ambulating to bathroom with one assist using walker. Titrate supplemental O2 from 1.5L to 1L. Trialed room air but unable to maintain above 88%. Pt voiding both in toilet and in brief. Insulin given per sliding scale.
[2025-11-08] MEDS: guaiFENesin 100 MG/ML CUP PO (14:43)
[2025-11-08] MEDS: POTASSIUM BICARB 25 MEQ EFFERVESCENT TAB PO ×2 (14:44→18:13)
[2025-11-08] MEDS: MAGNESIUM SULF 1 G/100 ML 1 GM/100 ML PIGGYBACK IVPB (14:44)
[2025-11-08] MEDS: AMIODARONE 50 MG/ML inj 150 MG in 5 % DEXTROSE 100 ML 100 ML 618 MG IVPB (16:01)
--- NOTE | 2025-11-08 20:17 | P.CCN_ITS ---
Subjective Subjective Time Seen by Provider: 18:15 Date Seen: 11/08/25 Interval history: Nurse notified me of patient's low BP 75/48 after patient got up to use cammode and then was sitting in the beside chair. Also, HR was still 110s-120s. She had received Mg IV and amiodarone IV bolus about 2 hours ago. Vicki denied CP or SOB, but did feel a little lightheaded. We got her into bed and BP on recheck was 116/74 and HR improved to 80s-100s. Lightheadedness resolved. Since then, BPs continue to be 112-121/74-80 and HR also remain stable 80s-100s. Objective Objective Data Details: General: NAD, AAO to self and place. EKG @ 4PM: Atrial flutter with variable AV block, 97 beats per minute, marked ST abnormality, possible inferior subendocardial injury. When compared to EKG from 3:00 p.m., ST depression in the inferior and lateral leads is about 50% improved. EKG at 8:00 p.m.: Atrial flutter with variable AV block, ST depression, consider subendocardial injury, nonspecific T-wave abnormality, [address] depression improving, appears to be back to baseline as seen on EKGs from 11/06/2025 and 06/24/2025. Assessment and Plan Assessment and plan (1) Atrial fibrillation with RVR: Problem comment: - HR >120 -fluid bolus and dig yesterday has given the lasting control and certainly not converted. -Spoke with Dr. Cardenas from her cardiology group ([facility]) and opened case for transfer to [facility] with operations Center at 1400hrs. -plan is to bolus amiodarone, 150 mg over 10 minutes if no response with heart rate and or converting her back to sinus, digoxin 250 mg IV x1. He felt a transfer if these 2 interventions do not work was very reasonable. 11/08 evening: EKG had ST abnormalities earlier today when HRs were more elevated, likely due to demand ischemia. She had recent stress testing negative for ischemia. HR and BPs are improved now after Mg IV and amiodarone bolus earlier today. Hold off on digoxin bolus for now. EKG around 4pm and again now at 8pm show resolution of ST abnormalities now that HR has improved. Continue to monitor. Status: Acute (2) Chronic a-fib: Problem comment: - Flipped into AFib overnight on 11/07. Continue to monitor. Heart rates are around 100. 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 The nuclear stress test is negative for inducible myocardial ischemia or infarction. ? Left ventricular function is normal. ? The left ventricular ejection fraction at stress is 69%. ? In comparison, nuclear stress October 2024 was normal. Status: Acute
[2025-11-08] MEDS: HYDROCORTISONE 10 MG TABLET 5 MG PO (21:24)
[2025-11-08] MEDS: DIVALPROEX SODIUM ER TAB 250 MG 2000 MG PO (21:25)
[2025-11-08] MEDS: ROSUVASTATIN CALCIUM 10 MG TABLET 20 MG PO (21:26)
[2025-11-08] MEDS: MELATONIN 3 MG TABLET 6 MG PO (21:40)
[2025-11-09] VITALS (13 sets, daily range): BP systolic 103–120; BP diastolic 69–96; PULSE 76–124; RESP 16–20; TEMP 35.9–36.4; O2SAT 90–96
[2025-11-09] MEDS: HYDROCORTISONE SOD SUCCINATE 50 MG/ML inj IVP ×2 (00:14→06:26)
[2025-11-09] MEDS: SODIUM CHLORIDE 0.9 % (FLUSH) 10 ML SYRINGE 5 ML IVF ×3 (00:15→08:56)
[2025-11-09] MEDS: METOPROLOL TARTRATE 1 MG/ML inj 2.5 MG IVP (06:26)
[2025-11-09 06:44] LABS: HCO3 VBG 38 mmol/L (21-28); PCO2 VBG 48 mmHG (40-50); PO2 VBG 45.8 mmHG (25-47); pH VBG 7.509 (7.32-7.43)
--- NOTE | 2025-11-09 06:57 | PC.NURSE ---
[id number]: Patient pleasant and cooperative with cares. Chronic pain managed with PRN medication, repositioning, and elevation. Pt encouraged to use IS and Aerobika throughout shift. 1 Lt while awake, 2 Lt when asleep to maintain <88%. Afebrile. Frequent T&R. HR increased to 110-120. MD updated. See orders. Eating and voiding.
[2025-11-09 07:00] LABS: Hematocrit* 39.0 % (33.0-51.0); Hemoglobin* 11.7 gm/dL (12.0-16.0); Immature Granulocytes Abs Auto 0.01 K/uL (0.00-0.30); Immature Granulocytes Pct Auto 0.2 %; Mean Corpuscular HGB Conc 30 gm/dL (32-36); Mean Corpuscular Hemoglobin 26 pg (26-34); Mean Corpuscular Volume 88 fL (80-100); RDW Coefficient of Variation % 17.4 % (11.5-15.5); Red Blood Count* 4.43 m/uL (4.00-5.20); White Blood Count* 6.22 K/uL (4.50-11.00)
[2025-11-09 07:06] LABS: Lymphocytes Absolute Auto 0.90 K/uL (0.90-2.90); Slide Review Reflex No
[2025-11-09 07:16] LABS: Albumin* 3.6 g/dL (3.3-5.0); Chloride* 97 mmol/L (96-114); Sodium* 140 mmol/L (135-149)
[2025-11-09 07:17] LABS: Potassium* 3.1 mmol/L (3.6-5.1)
[2025-11-09 07:19] LABS: Blood Urea Nitrogen* 25 mg/dL (7-30); Creatinine* 0.9 mg/dL (0.5-1.5); Est. Creatinine Clearance* 44.54; Estimated Glomerular Filt Rate 70 ml/min
[2025-11-09 07:20] LABS: Alanine Aminotransferase* 14 U/L (4-35); Alkaline Phosphatase* 68 U/L (40-150); Anion Gap 4 mEq/L (7-15); Aspartate Amino Transferase* 22 U/L (12-35); Bilirubin Total* 0.3 mg/dL (0.1-1.5); Calcium* 9.0 mg/dL (8.4-10.6); Carbon Dioxide* 39 mmol/L (20-32); Glucose* 164 mg/dL (60-115); Total Protein* 6.8 g/dL (6.0-8.3)
[2025-11-09] MEDS: DIGOXIN 250 MCG/ML inj IV (07:54)
[2025-11-09] MEDS: TRAMADOL HCL 50 MG TABLET 25 MG PO (07:54)
--- NOTE | 2025-11-09 08:52 | P.DS_ITS ---
Transfer Discharge Sum: Prov Provider Date Seen: 11/09/25 Date of admission: 11/06/25 13:20 Primary care physician: Not a Local Provider Consults: 11/06/25 13:46 Consult to Occupational Therapy [CONS] Routine Comment: Reason(s) for OT Consult:: Evaluate and Treat Any Restrictions?:: No Restrictions Consult to Physical Therapy [CONS] Routine Comment: Reason(s) for PT Consult:: Evaluate and Treat Any Restrictions?:: No Restrictions Consult to Respiratory Therapy [CONS] Routine Comment: Reason(s) for RT Consult:: Consult Consult to Analysis Internship [CONS] Routine Comment: Reason for Consult:: Social Service Consult Attending physician on discharge: Barbra Young Discharging clinician: Barbra Young Anticipated date of transfer: 11/09/25 Receiving physician/facility: [facility] DS: Diagnosis Discharge Diagnosis (1) Acute hypoxemic respiratory failure: Status: Acute Problem details: -requiring nasal cannula oxygen to keep sats greater than 88%. Known mild CO2 retainer. Oxygen supplementation with caution. -d/t CAP, long standing COPD, untreated ANTHONY -CXR 11/08 - clear -CTA 11/06 indicated bibasilar opacities -multiple pulmonary nodules were noted, that are new, in the posterior right upper lobe. These need to be followed up in 3 months. Some of them are spiculated but likely represent this infectious process. -CXR 11/06 showed an infiltrate within the retrocardiac aspect of the left lower lobe (2) Atrial fibrillation with RVR: Status: Acute Problem details: - HR >120 -presented in sinus but then flipped into AFib after 24 hours of being admitted. Rate control has been difficult. There is ST depression when she is tachycardic. -Spoke with Dr. Cardenas from her cardiology group ([facility]) on 11/08 and opened case for transfer to [facility] with operations Center at 1400hrs. -plan is to bolus amiodarone, 150 mg over 10 minutes if no response with heart rate and or converting her back to sinus, digoxin 250 mg IV x1. He felt a transfer if these 2 interventions do not work was very reasonable. -a.m. Of 11/09: Heart rate is still greater than 120. Neither the digoxin nor amiodarone were able to convert her or rate control her. I discussed with Dr. García ([facility] hospitalist) - who accepted transfer to [facility]. (3) Community acquired pneumonia: Status: Acute Problem details: -single-view x-ray suggests a left lower lobe pneumonia. bibasilar opacities noted on CT, spiculated nodules <1cm that are new? f/u close as outpatient. -increase Rocephin to 2 g Q 24, changed azithromycin to doxycycline -already on baseline steroids for adrenal insufficiency, giving stress dose hydrocortisone while acutely ill (4) Acute hypokalemia: Status: Acute Problem details: will replace, given need for rhythm stability (along with magnesium). (5) Elevated troponin: Status: Acute Problem details: -assoc with ST depression, likely from demand ischemia related to the pneumonia and AFib RVR. Trop is back to normal/. (6) Chronic adrenal insufficiency: Status: Acute Problem details: - on Hydrocortisone 10mg Qam and 5mg Qpm as a baseline - ER gave 100 mg hydrocortisone IV push x1, continuing 50 mg of hydrocortisone q.6 while acutely ill. - when we restart her home dose of hydrocortisone, we may likely have this doubled for 24 hours (7) COPD on long-term inhaled steroid therapy: Status: Acute Problem details: -continue home Ronald, p.r.n. yvonne manning, p.r.n. 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 - Eliquis for stroke prophylaxis , [id number] -Maintained on amiodarone for rhythm control 10/26/2025 2:26 PM DOCTOR NATUROPATHIC ? The nuclear stress test is negative for inducible myocardial ischemia or infarction. ? Left ventricular function is normal. ? The left ventricular ejection fraction at stress is 69%. ? In comparison, nuclear stress October 2024 was normal. (9) (HFpEF) heart failure with preserved ejection fraction: Status: Acute Problem details: -chronic, not in exacerbation. BNP actually was the lowest it has been this year. 3K verses high of 5700 in June. -echo reviewed from June of 2025. EF 60-65%. Normal LV and RV function. Mild . Moderate TR. -just had a nucleolar stress test on 10/26/25. 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 (12) Obstructive sleep apnea: Status: Acute Problem details: -no current sleep study to review, last was 2014. Patient is not on CPAP. (13) Diabetes: Status: Acute Problem details: - on Metformin and Jardiance as an outpatient, most recent A1C 6.7 in August of 2025 (14) MRSA (methicillin resistant staph aureus) culture positive: Status: Acute Problem details: 06/21/25 NARES (15) Venous stasis dermatitis of both lower extremities: Status: Acute Problem details: - no evidence of acute infection. Toes also exhibit erythema and edema that is baseline for her -followed by lymphedema clinic (16) Polypharmacy: Status: Acute (17) Extended spectrum beta lactamase (ESBL) resistance: Status: Acute Problem details: -abstracted from [facility] dated November 2023. No further details. Transfer Discharge Sum: Med Medications Active and Home Medications: Home Medications acetaminophen 325 mg tablet 650 mg PO TID 06/21/25 [History Confirmed 11/06/25] apixaban 5 mg tablet (Eliquis) 5 mg PO BID 06/21/25 [History Confirmed 11/06/25] calcium 600 mg (as carbonate)-vitamin D3 10 mcg (400 unit) tablet 1 tab PO BID 06/21/25 [History Confirmed 11/06/25] divalproex 500 mg tablet,extended release 24 hr 2,000 mg PO HS 06/21/25 [History Confirmed 11/06/25] fluticasone fur. 100 mcg-umeclid 62.5 mcg-vilant 25 mcg inhalat.powder (Trelegy Ellipta) 1 inh inhalation DAILY 06/21/25 [History Confirmed 11/06/25] hydrocortisone 10 mg tablet (Cortef) 5 - 10 mg PO .UD 06/21/25 [History Confirmed 11/07/25] melatonin 5 mg tablet 5 mg PO HS insomnia 06/21/25 [History Confirmed 11/06/25] multivitamin with folic acid 400 mcg tablet (Tab-A-Tiffanie) 1 tab PO DAILY 06/21/25 [History Confirmed 11/06/25] rosuvastatin 20 mg tablet 20 mg PO HS 06/21/25 [History Confirmed 11/06/25] sertraline 25 mg tablet 25 mg PO DAILY 06/21/25 [History Confirmed 11/06/25] empagliflozin 10 mg tablet (Jardiance) 10 mg PO QAM #30 tabs 06/27/25 [Rx Confirmed 11/06/25] metformin 500 mg tablet,extended release 24 hr 500 mg PO DAILY #30 tabs 06/27/25 [Rx Confirmed 11/06/25] levothyroxine 50 mcg tablet 50 mcg PO DAILY 08/19/25 [History Confirmed 11/06/25] omeprazole 40 mg capsule,delayed release 40 mg PO BID 08/19/25 [History Confirmed 11/06/25] torsemide 20 mg tablet 60 mg (3 x 20 mg) PO DAILY 30 days #90 tabs 08/21/25 [Rx Confirmed 11/06/25] potassium chloride 10 mEq capsule,extended release 10 meq PO DAILY 60 days #60 caps 08/22/25 [Rx Confirmed 11/06/25] amiodarone 200 mg tablet 200 mg PO DAILY 11/06/25 [History Confirmed 11/06/25] ipratropium 0.5 mg-albuterol 3 mg (2.5 mg base)/3 mL nebulization soln 3 ml inhalation Q4H PRN wheezing 11/06/25 [History Confirmed 11/06/25] montelukast 10 mg tablet 10 mg PO DAILY 11/06/25 [History Confirmed 11/06/25] tramadol 50 mg tablet 25 mg PO Q12H PRN chronic pain 11/06/25 [History Confirmed 11/06/25] Active Medications Acetaminophen (Acetaminophen 325 Mg Tablet) 975 mg PO Q6H PRN Last Admin: 11/08/25 06:44 Dose: 975 mg Albuterol (Albuterol Sulfate 2.5 Mg/3 Ml Vial.Neb) 2.5 mg NEB Q4H PRN Albuterol/Ipratropium (Iprat-Albut 0.5-2.5 Mg/3 Ml Neb) 1 neb IH Q4H PRN PRN Reason: Wheezing Amiodarone HCl (Amiodarone 200 Mg Tablet) 200 mg PO DAILY [facility] Last Admin: 11/08/25 08:25 Dose: 200 mg Apixaban (Apixaban 5 Mg Tablet) 5 mg PO BID [facility] Last Admin: 11/08/25 21:25 Dose: 5 mg Divalproex Sodium (Divalproex Sodium Er Tab 250 Mg) 2,000 mg PO HS [facility] Last Admin: 11/08/25 21:25 Dose: 2,000 mg Doxycycline Hyclate (Doxycycline Hyclate 100 Mg) 100 mg PO BID [facility] Last Admin: 11/08/25 21:26 Dose: 100 mg Empagliflozin (Empagliflozin 10 Mg Tablet) 10 mg PO QAM [facility] Last Admin: 11/08/25 08:27 Dose: 10 mg Guaifenesin (Guaifenesin 100 Mg/Ml Cup) 100 - 200 mg PO Q4H PRN PRN Reason: Cough Last Admin: 11/08/25 14:43 Dose: 200 mg Hydrocortisone Acetate (Hydrocortisone 10 Mg Tablet) 5 mg PO HS [facility] Last Admin: 11/08/25 21:24 Dose: 5 mg Hydrocortisone Acetate (Hydrocortisone 10 Mg Tablet) 10 mg PO QAM [facility] Ceftriaxone Sodium 2 gm/ (Sodium Chloride) 100 mls @ 200 mls/hr IVPB Q24H [facility] Last Infusion: 11/08/25 13:00 Dose: Infused Insulin Aspart (Insulin Aspart 100 Unit/Ml) 0 unit SUBCUT ACHS [facility]; Protocol Last Admin: 11/09/25 07:42 Dose: Not Given Levothyroxine Sodium (Levothyroxine 50 Mcg Tablet) 50 mcg PO DAILY [facility] Last Admin: 11/08/25 07:42 Dose: 50 mcg Melatonin (Melatonin 3 Mg Tablet) 6 mg PO HS PRN Last Admin: 11/08/25 21:40 Dose: 6 mg Montelukast Sodium (Montelukast 10 Mg Tablet) 10 mg PO DAILY [facility] Last Admin: 11/08/25 08:27 Dose: 10 mg Nitroglycerin (Nitroglycerin 0.4 Mg Tab.Subl) 0.4 mg SUBLINGUAL Q5M PRN Fluticasone- Umeclidin-Vilanter [ Trelegy Ellipta] 100 -62.5-25 Mcg 0 inhalation IH DAILY [facility] Last Admin: 11/08/25 10:39 Dose: Not Given Omeprazole (Omeprazole [address]) 40 mg PO BID [facility] Last Admin: 11/08/25 21:25 Dose: 40 mg Potassium Chloride (Potassium Chloride 10 Meq Capsule Er) 10 meq PO DAILY [facility] Last Admin: 11/08/25 08:27 Dose: 10 meq Rosuvastatin Calcium (Rosuvastatin Calcium 10 Mg Tablet) 20 mg PO HS [facility] Last Admin: 11/08/25 21:26 Dose: 20 mg Sertraline HCl (Sertraline 50 Mg Tablet) 25 mg PO DAILY [facility] Last Admin: 11/08/25 08:27 Dose: 25 mg Sodium Chloride (Sodium Chloride 0.9 % (Flush) 10 Ml Syringe) 5 ml IVF .FLUSH PRN Last Admin: 11/09/25 06:26 Dose: 5 ml Sodium Chloride (Sodium Chloride 0.9 % (Flush) 10 Ml Syringe) 5 ml IVF BID [facility] Last Admin: 11/08/25 21:26 Dose: 5 ml Sodium Chloride (0.9 % Sodium Chloride 250 Ml) 250 ml IV Q24H [facility] Last Admin: 11/08/25 21:06 Dose: Not Given Torsemide (Torsemide 20 Mg Tablet) 60 mg PO DAILY [facility] Last Admin: 11/08/25 08:27 Dose: 60 mg Tramadol HCl (Tramadol Hcl 50 Mg Tablet) 25 mg PO Q12H PRN PRN Reason: chronic pain Last Admin: 11/09/25 07:54 Dose: 25 mg Transfer Discharge Sum: Hosp Hospital Course Hospital course: HOSPITALIST TRANSFER SUMMARY ATTENDING PHYSICIAN: Barbra Young MD REASON FOR TRANSFER AFib RVR, need for further cardiology care BRIEF HOSPITAL COURSE: Patient is a 70-year-old white female, goes by Aydee, who was admitted on the afternoon of 11/06. Initially this was for hypoxic respiratory failure related to pneumonia and likely COPD exacerbation. She required 2-3 L per nasal cannula oxygen. Never needed BiPAP or high-flow. Within about 24 hours of being admitted she flipped into atrial fibrillation. This is not new for her she is chronically anticoagulated and is typically on amiodarone for rhythm stability. We did note her admission EKG showed some ST depression in the anterior and inferior leads. This was felt to be a demand related to her pneumonia and AFib. Initially the AFib was rate controlled however this soon became a rate control issue. Of course we continued her oral amiodarone. We tried oral metoprolol which dropped her pressure unacceptably. Tried oral digoxin and oral diltiazem neither of which were effective. In consult with her Cardiology group, we pushed an IV bolus of amiodarone and digoxin. Again neither were effective. Overall she is relatively asymptomatic from the rate. She has had no new chest pain. She has remained on oxygen support. From an acute infectious pulmonary standpoint: She has not been febrile or had an elevated white blood cell count. We noted a chronic anemia. Her imaging has included 2 chest x-rays and a CTA. Most recent chest x-ray on 11/08 was normal. Take note that her CTA did show bilateral bibasilar infiltrates versus atelectasis and new spiculated sub cm nodules. She has been maintained on Rocephin, doxycycline, nebs, oxygen and stress dose hydrocortisone. RT has been involved in her care. Aydee has multiple medical problems and comorbidities. Primarily: developmental delay, COPD, chronic adrenal insufficiency, untreated ANTHONY, history of CVA and epilepsy. She lives in assisted living. Her sister is her POA and very involved in her care. SERVICES NOT AVAILABLE HERE THAT THIS PATIENT NEEDS: Cardiology ACCEPTING PHYSICIAN/SERVICE/LOCATION: Dr. García; hospitalist with [facility] MEDICATIONS AT TIME OF TRANSFER: See Mar DRIPS/LINES: O2 and a peripheral IV VITAL SIGN, MEDICATION, LAB/MICRO, IMAGING SUMMARY (full details available in account tabs or by records request) See printed record REVIEW OF SYSTEMS Unchanged. PHYSICAL EXAM: CONSTITUTIONAL: Alert, flat affect. Looks unwell but not toxic. VITAL SIGNS: see record. CV: Irregularly irregular, tachycardic. No evidence of fluid overload or respiratory distress. Chronic lymphedema noted. EXTREMITIES: She has moderate lymphedema. She has chronic erythema to her distal lower extremities. This is not new. She has chronic swelling of her phalanges. Again this is not new either. DISPOSITION: Transfer Time spent on discharge >30 minutes. This includes speaking with accepting physician; family/patient and coordinating meds/drips for transfer Time Spent with Patient Time attestation: Total time spent providing and/or coordinating transfer services: Total time spent: Greater than 30 minutes Exam Const: Vital Signs, click to edit/add: Vital Signs - 24 hr 11/08/25 11:00 11/08/25 11:00 11/08/25 13:08 Temperature Pulse Rate Pulse Rate [Pulse Oximeter] 138 H 120 H Respiratory Rate 20 20 Blood Pressure [Le ft Arm] 118/86 108/77 Pulse Oximetry 93 93 89 Oxygen Delivery Me thod Nasal Cannula Nasal Cannula Oxygen Flow Rate 1 1 11/08/25 13:38 11/08/25 14:42 11/08/25 15:30 Temperature Pulse Rate 126 H Pulse Rate [Pulse Oximeter] 90 Respiratory Rate 20 18 Blood Pressure [Le ft Arm] 110/70 Pulse Oximetry 92 86 L Oxygen Delivery Me thod Nasal Cannula Nasal Cannula Oxygen Flow Rate 1 1 11/08/25 16:00 11/08/25 16:00 11/08/25 16:31 Temperature Pulse Rate Pulse Rate [Pulse Oximeter] 120 H 120 H 82 Respiratory Rate 18 18 18 Blood Pressure [Le ft Arm] 117/85 107/72 Pulse Oximetry 90 90 Oxygen Delivery Me thod Nasal Cannula Nasal Cannula Oxygen Flow Rate 1 1 11/08/25 16:35 11/08/25 16:45 11/08/25 17:00 Temperature Pulse Rate Pulse Rate [Pulse Oximeter] 101 H 96 92 Respiratory Rate Blood Pressure [Le ft Arm] 110/67 109/79 105/73 Pulse Oximetry Oxygen Delivery Me thod Oxygen Flow Rate 11/08/25 17:15 11/08/25 17:37 11/08/25 17:45 Temperature Pulse Rate Pulse Rate [Pulse Oximeter] 88 145 H 125 H Respiratory Rate Blood Pressure [Le ft Arm] 98/76 103/75 103/76 Pulse Oximetry Oxygen Delivery Me thod Oxygen Flow Rate 11/08/25 18:00 11/08/25 18:15 11/08/25 18:28 Temperature Pulse Rate Pulse Rate [Pulse Oximeter] 103 H 90 88 Respiratory Rate 20 Blood Pressure [Le ft Arm] 87/77 L 75/48 L 116/74 Pulse Oximetry 90 90 89 Oxygen Delivery Me thod Nasal Cannula Room Air Room Air Oxygen Flow Rate 1 11/08/25 19:00 11/08/25 19:02 11/08/25 19:15 Temperature 96.6 F L Pulse Rate 95 Pulse Rate [Pulse Oximeter] 81 83 Respiratory Rate 20 Blood Pressure [Le ft Arm] 121/76 112/80 Pulse Oximetry 92 Oxygen Delivery Me thod Room Air Oxygen Flow Rate 1.0 11/08/25 20:07 11/08/25 21:00 11/08/25 22:00 Temperature 97.2 F L Pulse Rate Pulse Rate [Pulse Oximeter] 95 94 93 Respiratory Rate 20 Blood Pressure [Le ft Arm] 115/80 109/70 99/77 Pulse Oximetry 91 Oxygen Delivery Me thod Nasal Cannula Oxygen Flow Rate 2.0 11/08/25 23:04 11/08/25 23:25 11/08/25 23:27 Temperature Pulse Rate 83 Pulse Rate [Pulse Oximeter] Respiratory Rate 20 Blood Pressure [Le ft Arm] Pulse Oximetry 91 91 Oxygen Delivery Me thod Nasal Cannula Oxygen Flow Rate 2.0 11/09/25 00:18 11/09/25 01:59 11/09/25 03:44 Temperature 97.6 F 96.7 F L Pulse Rate 76 Pulse Rate [Pulse Oximeter] 94 85 Respiratory Rate 20 18 Blood Pressure [Le ft Arm] 115/84 111/81 Pulse Oximetry 90 94 Oxygen Delivery Me thod Nasal Cannula Nasal Cannula Oxygen Flow Rate 2.0 2.0 11/09/25 03:48 11/09/25 04:54 11/09/25 06:33 Temperature 97.1 F L 97.3 F L Pulse Rate Pulse Rate [Pulse Oximeter] 82 118 H 103 H Respiratory Rate 18 16 Blood Pressure [Le ft Arm] 113/81 120/96 H 106/90 H Pulse Oximetry 92 91 Oxygen Delivery Me thod Nasal Cannula Nasal Cannula Oxygen Flow Rate 2.0 2.0 11/09/25 07:00 11/09/25 07:00 11/09/25 07:00 Temperature Pulse Rate Pulse Rate [Pulse Oximeter] 116 H Respiratory Rate 16 Blood Pressure [Le ft Arm] Pulse Oximetry 90 90 Oxygen Delivery Me thod Nasal Cannula Oxygen Flow Rate 1 11/09/25 07:00 11/09/25 07:38 Temperature 97.0 F L Pulse Rate 107 H Pulse Rate [Pulse Oximeter] 76 Respiratory Rate 16 Blood Pressure [Le ft Arm] 116/83 Pulse Oximetry Oxygen Delivery Me thod Nasal Cannula Oxygen Flow Rate 1 Transfer Discharge Sum: Data Data Completed and Pending Completed studies during hospitalization: Procedures Assistance with Respiratory Ventilation, Less than 24 Consecutive Hours, Continuous Positive Airway Pressure (08/18/25) Introduction of Other Gas into Respiratory Tract, Via Natural or Artificial Opening (08/18/25) Discharge Plan Discharge Disposition: [facility] Date of Admission: 11/06/25 13:20 Attending Provider on Discharge: Barbra Young Primary Care Provider: Provider,Not a Local Discharge Orders: Transfer of Care to Other Hospital (ORDER); Ordered 11/09/25 Ordered By: Barbra Young Oxygen: Yes Oxygen Delivery Method: Nasal Cannula Urinary Catheter: No Services not available here: Cardiology
[2025-11-09] MEDS: OMEPRAZOLE 20 MG CAPSULE DR 40 MG PO (08:55)
[2025-11-09] MEDS: POTASSIUM CHLORIDE 10 MEQ CAPSULE ER PO (08:55)
[2025-11-09] MEDS: LEVOTHYROXINE 50 MCG TABLET PO (08:55)
[2025-11-09] MEDS: DOXYCYCLINE HYCLATE 100 MG PO (08:55)
[2025-11-09] MEDS: EMPAGLIFLOZIN 10 MG TABLET PO (08:55)
[2025-11-09] MEDS: AMIODARONE 200 MG TABLET PO (08:55)
[2025-11-09] MEDS: APIXABAN 5 MG TABLET PO (08:55)
[2025-11-09] MEDS: MONTELUKAST 10 MG TABLET PO (08:55)
[2025-11-09] MEDS: HYDROCORTISONE 10 MG TABLET PO (08:56)
[2025-11-09] MEDS: TORSEMIDE 20 MG TABLET 60 MG PO (09:03)
[2025-11-09] MEDS: SERTRALINE 50 MG TABLET 25 MG PO (09:03)
[2025-11-09] MEDS: POTASSIUM BICARB 25 MEQ EFFERVESCENT TAB PO ×2 (09:27→11:17)
[2025-11-09] MEDS: cefTRIAXone 2 GM in 0.9 % SODIUM CHLORIDE Mini-bag 100 ML IVPB (11:49)
[2025-11-09] MEDS: INSULIN ASPART 100 UNIT/ML SUBCUT (12:04)
--- NOTE | 2025-11-09 15:04 | PC.NURSE ---
Pt is pleasant to care for. A&Ox4, intermittently forgetful. BP stable, afebrile. HR continues to be 100-120, a-flutter on food service driver, provider aware. Pt is requiring 2L O2 NC to maintain O2 >90%, respirations 18, SOB with activity. Pt is weak, pivot transferring to bedside commode. Incontinent, purwick in place, pt is having adequate, clear urine output. Pt is tolerating regular diet. Pt transferred to [facility], nurse to nurse report was given to RIKI Morales. Pt discharged at 1500 via EMS. Pt belongings were sent with EMS.
== END 2025-11-09 15:00 | disposition short-term general hospital (02) | DRG 308 ==
LOC: ED 13:22 → MEDSURG 13:54
PROVIDERS: Family Medicine; Admitting Provider Family Medicine; Emergency Provider Emergency Medicine; Visit Provider Family Medicine
DX: I48.20 Chronic atrial fibrillation, unspecified (principal); J18.9 Pneumonia, unspecified organism; J96.01 Acute respiratory failure with hypoxia; I50.32 Chronic diastolic (congestive) heart failure; E27.40 Unspecified adrenocortical insufficiency; Z16.12 Extended spectrum beta lactamase (ESBL) resistance; I24.89 Other forms of acute ischemic heart disease; I48.91 Unspecified atrial fibrillation; I87.2 Venous insufficiency (chronic) (peripheral); G40.909 Epilepsy, unspecified, not intractable, without status epilepticus; E11.9 Type 2 diabetes mellitus without complications; J44.9 Chronic obstructive pulmonary disease, unspecified; G47.33 Obstructive sleep apnea (adult) (pediatric); F06.70 Mild neurocognitive disorder due to known physiological condition without behavioral disturbance; Z79.899 Other long term (current) drug therapy; Z86.711 Personal history of pulmonary embolism; I48.0 Paroxysmal atrial fibrillation; Z22.322 Carrier or suspected carrier of Methicillin resistant Staphylococcus aureus; Z79.01 Long term (current) use of anticoagulants; Z86.73 Personal history of transient ischemic attack (TIA), and cerebral infarction without residual deficits; Z79.51 Long term (current) use of inhaled steroids; Z66 Do not resuscitate; Z88.5 Allergy status to narcotic agent; Z88.6 Allergy status to analgesic agent; Z88.8 Allergy status to other drugs, medicaments and biological substances; Z88.2 Allergy status to sulfonamides
CPT/HCPCS: 36415; 51798; 71045; 71275; 80053; 82803; 82962; 83605; 83735; 83880; 84100; 84145; 84443; 84484; 85025; 86140; 87040; 87449; 87631; 87899; 93005; 94664; 94761; 97110; 97161; 97165; 97530; 97535; 99284; 99285; A9270; J0282; J0696; J1160; J1720; J2470; J3475; J7030; J7050; Q9967

== ENCOUNTER 2025-11-09 14:48 | Outpatient (CLI) | payer OTHER, SELFPAY | END 2025-11-09 14:49 | disposition home or self-care (01) | LOC: AMB 11-13 21:40 | PROVIDERS: Visit Provider Family Medicine | DX: J96.01 Acute respiratory failure with hypoxia (principal); I48.91 Unspecified atrial fibrillation; J18.9 Pneumonia, unspecified organism | CPT/HCPCS: A0425; A0427 ==